=== PATIENT | female | born 1975 | race Caucasian/White ===

== ENCOUNTER 2017-12-04 16:54 | Emergency (ER) | payer OTHER, SELFPAY ==
[2017-12-04 17:33] VITALS: BP 124/85; PULSE 98; RESP 20; TEMP 36.6; O2SAT 98; BMI 32.6
[2017-12-04 18:06] LABS: UTC Influenza A Antigen Negative (Negative); UTC Influenza B Antigen Negative (Negative)
--- NOTE | 2017-12-04 18:43 | HMH.EDUTC ---
[facility] [place] Dis[place] Clinical Impression: URI (upper respiratory infection) Qualifiers: URI type: unspecified URI Qualified Code(s): J06.9 - Acute upper respiratory infection, unspecified Disposition: Home, Self-Care Condition on Discharge: Good Instructions: DI for Cough -- Adult, Sore Throat Additional Instructions: * Monitor Temp. Tylenol and/or Ibuprofen as needed. ER if fever is no less than 101 despite alternating Tylenol and Ibuprofen * Encourage fluids, water, Gatorade, powerade, pedialyte if /toddler/or child * Warm salt water gargles for throat irritation *Warm fluids *Sore throat lozenges *Sleep elevated *humidifier or vaporizer Lots of rest Increase fluids, water, Gatorade, powerade *Flonase 2 sprays each nostril daily but may take 2-3 days to notice improvement with it Follow up IMMEDIATELY for new or worsening of symptoms OR no noticeable improvement over the next 48-72 hours. 911 immediately for any life threatening symptoms such as chest pain or difficulty breathing Prescriptions: Promethazine/Dextromethorphan [Promethazine-Dm Syrup] 5 ml PO Q4HP PRN #250 ml MDD 30ML/DAY PRN Reason: Cough Azithromycin [Z-Sanjay 250mg Tab] 250 mg PO UD DOSE PK #6 tab Fluticasone Propionate [Flonase 50mcg nasal spray 16gm] 2 spr NS DAILY #1 bottle predniSONE [Prednisone 20mg Tab] 20 mg PO BID #10 tab Referrals: Kaushal Brandon MD [Primary Care Provider] - Time of Disposition: 18:54 Medical Decision Making - Medical Records Medical records reviewed: Yes: I reviewed the patient's medical records. Vital Signs: 12/04/17 17:33 Temperature 97.9 F Temperature Source Temporal Artery Scan Pulse Rate [Right Brachial] 98 H Respiratory Rate 20 Blood Pressure [Right Arm] 124/85 Blood Pressure Mean [Right Arm] 98 Blood Pressure Source [Right Arm] Automatic Cuff Blood Pressure Position [Right Arm] Sitting 02 Sat by Pulse Oximetry 98 Oxygen Delivery Method Room Air - Lab Data Lab Results 12/04/17 17:40: Influenza Type A Ag Negative, Influenza Type B Ag Negative - Wali Inquiry Pt receiving controlled substance: No Wali was queried for this patient: No [facility] [place] HPI - General Stated complaint: cough, chest and head congestion Mode of Arrival: Ambulatory Source of Information: Patient Limitations: No Limitations Description of Symptoms (Recalled from Triage Doc. by RN): C/O CHEST CONGETION, COUGH, HEAD CONGESTION HEENT Symptoms (Recalled from RN notes): Yes (HEAD CONGESTION) Resp Symptoms (Recalled from RN notes): Yes (CHEST CONGESTION, COUGH) Skin Symptoms (Recalled from RN notes): No MS Symptoms (Recalled from RN notes): No Functional Status (Recalled from RN notes): N/A - History of Present Illness Provider Complaint: Patient state that she is having cough head and chest congestion and sore throat State that she has continued to get worse State that she is blowing thick yellow mucous from nose and feeling tenderness and pressure in her sinuses - Related Data Previous Rx's Medication Instructions Recorded escitalopram 10 mg tablet 10 mg PO ONCE 90 Days #90 tab 11/24/17 Azithromycin [Z-Sanjay 250mg Tab] 250 mg PO UD DOSE PK #6 tab 12/04/17 Fluticasone Propionate [Flonase 2 spr NS DAILY #1 bottle 12/04/17 50mcg nasal spray 16gm] Promethazine/Dextromethorphan 5 ml PO Q4HP PRN #250 ml MDD 12/04/17 [Promethazine-Dm Syrup] 30ML/DAY predniSONE [Prednisone 20mg 20 mg PO BID #10 tab 12/04/17 Tab] Allergies Allergy/AdvReac Type Severity Reaction Status Date / Time No Known Allergies Allergy Unverified 10/11/17 14:23 - Worker's Comp Is this a Worker's Comp case?: No H History I have reviewed the patient's past medical history: Yes Amputation: No Fractures: No - *Social History Smoking Status: Never smoker Alcohol Intake: never - Psychiatric History Expresses thoughts of harming self/others: None Suicide Plan Description: No Plan ROS Obtained: Yes All systems reviewed &
--- NOTE | 2017-12-04 18:48 | ED_ITS ---
[facility] [place] Clinical Impression: URI (upper respiratory infection) Qualifiers: URI type: unspecified URI Qualified Code(s): J06.9 - Acute upper respiratory infection, unspecified Disposition: Home, Self-Care Condition on Discharge: Good Instructions: DI for Cough -- Adult, Sore Throat Additional Instructions: * Monitor Temp. Tylenol and/or Ibuprofen as needed. ER if fever is no less than 101 despite alternating Tylenol and Ibuprofen * Encourage fluids, water, Gatorade, powerade, pedialyte if /toddler/or child * Warm salt water gargles for throat irritation *Warm fluids *Sore throat lozenges *Sleep elevated *humidifier or vaporizer Lots of rest Increase fluids, water, Gatorade, powerade *Flonase 2 sprays each nostril daily but may take 2-3 days to notice improvement with it Follow up IMMEDIATELY for new or worsening of symptoms OR no noticeable improvement over the next 48-72 hours. 911 immediately for any life threatening symptoms such as chest pain or difficulty breathing Prescriptions: Promethazine/Dextromethorphan [Promethazine-Dm Syrup] 5 ml PO Q4HP PRN #250 ml MDD 30ML/DAY PRN Reason: Cough Azithromycin [Z-Sanjay 250mg Tab] 250 mg PO UD DOSE PK #6 tab Fluticasone Propionate [Flonase 50mcg nasal spray 16gm] 2 spr NS DAILY #1 bottle predniSONE [Prednisone 20mg Tab] 20 mg PO BID #10 tab Referrals: Kaushal Brandon MD [Primary Care Provider] - Time of Disposition: 18:54 Medical Decision Making - Medical Records Medical records reviewed: Yes: I reviewed the patient's medical records. Vital Signs: 12/04/17 17:33 Temperature 97.9 F Temperature Source Temporal Artery Scan Pulse Rate [Right Brachial] 98 H Respiratory Rate 20 Blood Pressure [Right Arm] 124/85 Blood Pressure Mean [Right Arm] 98 Blood Pressure Source [Right Arm] Automatic Cuff Blood Pressure Position [Right Arm] Sitting 02 Sat by Pulse Oximetry 98 Oxygen Delivery Method Room Air - Lab Data Lab Results 12/04/17 17:40: Influenza Type A Ag Negative, Influenza Type B Ag Negative - Wali Inquiry Pt receiving controlled substance: No Wali was queried for this patient: No [facility] [place] - General Stated complaint: cough, chest and head congestion Mode of Arrival: Ambulatory Source of Information: Patient Limitations: No Limitations Description of Symptoms (Recalled from Triage Doc. by RN): C/O CHEST CONGETION, COUGH, HEAD CONGESTION HEENT Symptoms (Recalled from RN notes): Yes (HEAD CONGESTION) Resp Symptoms (Recalled from RN notes): Yes (CHEST CONGESTION, COUGH) Skin Symptoms (Recalled from RN notes): No MS Symptoms (Recalled from RN notes): No Functional Status (Recalled from RN notes): N/A - History of Present Illness Provider Complaint: Patient state that she is having cough head and chest congestion and sore throat State that she has continued to get worse State that she is blowing thick yellow mucous from nose and feeling tenderness and pressure in her sinuses - Related Data Previous Rx's Medication Instructions Recorded escitalopram 10 mg tablet 10 mg PO ONCE 90 Days #90 tab 11/24/17 Azithromycin [Z-Sanjay 250mg Tab] 250 mg PO UD DOSE PK #6 tab 12/04/17 Fluticasone Propionate [Flonase 2 spr NS DAILY #1 bottle 12/04/17 50mcg nasal spray 16gm] Promethazine/Dextromethorphan 5 ml PO Q4HP PRN #250 ml MDD 12/04/17 [Promethazine-Dm Syrup] 30ML/DAY predniSONE [Predniso
[2017-12-04 19:10] VITALS: BP 124/85; PULSE 98; RESP 20; TEMP 36.6
== END 2017-12-04 19:12 | disposition home or self-care (01) ==
PROVIDERS: Emergency Provider Nurse Practitioner; Family Provider Emergency Medicine; PCP Emergency Medicine
DX: J06.9 Acute upper respiratory infection, unspecified (principal)
CPT/HCPCS: 87804; 99202

== ENCOUNTER 2018-01-27 08:56 | Emergency (ER) | payer OTHER, SELFPAY ==
[2018-01-27 09:06] VITALS: BP 146/83; PULSE 72; RESP 20; TEMP 36.6; O2SAT 97; BMI 77.0
--- NOTE | 2018-01-27 09:12 | HMH.EDUTC ---
[facility] [place] Impression: Sinusitis Qualifiers: Sinusitis location: other Chronicity: unspecified Qualified Code(s): J32.9 - Chronic sinusitis, unspecified Disposition: Home, Self-Care Condition on Discharge: Good Instructions: Sinusitis, Sinus Headache, DI for Sinusitis Additional Instructions: Start antibiotic. Sinus infections may take 2-3 days to notice much improvement so be sure to use conservative measures as discussed for symptoms Flonase 2 spray in each nostril daily to help with nasal congestion, sinus an ear pressure/inflammation Lots of Fluids Sleep elevated Humidifer/vaporizer Prescriptions: Azithromycin [Z-Sanjay 250mg Tab] 250 mg PO UD DOSE PK #6 tab Fluticasone Propionate [Flonase 50mcg nasal spray 16gm] 2 spr NS DAILY #1 bottle predniSONE [Prednisone 20mg Tab] 20 mg PO BID #10 tab Referrals: Kaushal Brandon MD [Primary Care Provider] - Time of Disposition: 09:21 Medical Decision Making - Medical Records Medical records reviewed: Yes: I reviewed the patient's medical records. - Wali Inquiry Pt receiving controlled substance: No Wali was queried for this patient: No Vital Signs: 01/27/18 09:06 Temperature 98 F Temperature Source Temporal Artery Scan Pulse Rate [Right Brachial] 72 Respiratory Rate 20 Blood Pressure [Right Arm] 146/83 Blood Pressure Mean [Right Arm] 104 Blood Pressure Source [Right Arm] Automatic Cuff Blood Pressure Position [Right Arm] Sitting 02 Sat by Pulse Oximetry 97 Oxygen Delivery Method Room Air - Lab Data Lab results reviewed: Yes: I reviewed the patient's lab results. [facility] [place] - General Stated complaint: Sinus pressure,ears hurting Time Seen by Provider: 01/27/18 09:10 Mode of Arrival: Family Vehicle Source of Information: Patient Limitations: No Limitations Description of Symptoms (Recalled from Triage Doc. by RN): c/o sinus congestion/pressure and ear pain HEENT Symptoms (Recalled from RN notes): Yes Resp Symptoms (Recalled from RN notes): Yes Skin Symptoms (Recalled from RN notes): No MS Symptoms (Recalled from RN notes): No Functional Status (Recalled from RN notes): n/a - History of Present Illness Provider Complaint: Patient complaining of sinus pain and pressure State that she feels like her ears are full and like her hearing is muffeled States that she is feeling pressure behind her eyes and in her upper teeth State that she did this the last times she had a sinus infection - Related Data Home Medications Medication Instructions Recorded Confirmed Escitalopram Oxalate 10 mg PO ONCE 01/27/18 01/27/18 Penicillin V Potassium [PenVK 250 mg PO DAILY 01/27/18 01/27/18 250mg tablet] Piroxicam 20 mg PO DAILY 01/27/18 01/27/18 Previous Rx's Medication Instructions Recorded Azithromycin [Z-Sanjay 250mg Tab] 250 mg PO UD DOSE PK #6 tab 01/27/18 Fluticasone Propionate [Flonase 2 spr NS DAILY #1 bottle 01/27/18 50mcg nasal spray 16gm] predniSONE [Prednisone 20mg 20 mg PO BID #10 tab 01/27/18 Tab] Allergies Allergy/AdvReac Type Severity Reaction Status Date / Time No Known Allergies Allergy Verified 01/27/18 09:11 - Worker's Comp Is this a Worker's Comp case?: No [facility] History I have reviewed the patient's past medical history: Yes Amputation: No Fractures: No - Social History Smoking Status: Current every day smoker Tobacco Type: cigarettes Alcohol Intake: never - Psychiatric History Expresses thoughts of harming self/others: None Suicide Plan Description: No Plan ROS Obtained: Yes All systems reviewed & no additional complaints - Constitutional Constitutional: Denies body ache, Denies chills, Denies fever(s) - ENT Ears, Nose, Mouth, and Throat: Reports sinus pain, Reports sinus pressure, Denies sore throat - Respiratory Respiratory: No chest congestion, Yes cough Physical Exam - General General appearance: alert, in no apparent distress - Expanded ENT Exam Nose exam:
--- NOTE | 2018-01-27 09:16 | ED_ITS ---
[facility] Disposition Clinical Impression: Sinusitis Qualifiers: Sinusitis location: other Chronicity: unspecified Qualified Code(s): J32.9 - Chronic sinusitis, unspecified Disposition: Home, Self-Care Condition on Discharge: Good Instructions: Sinusitis, Sinus Headache, DI for Sinusitis Additional Instructions: Start antibiotic. Sinus infections may take 2-3 days to notice much improvement so be sure to use conservative measures as discussed for symptoms Flonase 2 spray in each nostril daily to help with nasal congestion, sinus an ear pressure/inflammation Lots of Fluids Sleep elevated Humidifer/vaporizer Prescriptions: Azithromycin [Z-Sanjay 250mg Tab] 250 mg PO UD DOSE PK #6 tab Fluticasone Propionate [Flonase 50mcg nasal spray 16gm] 2 spr NS DAILY #1 bottle predniSONE [Prednisone 20mg Tab] 20 mg PO BID #10 tab Referrals: Kaushal Brandon MD [Primary Care Provider] - Time of Disposition: 09:21 Medical Decision Making - Medical Records Medical records reviewed: Yes: I reviewed the patient's medical records. - Wali Inquiry Pt receiving controlled substance: No Wali was queried for this patient: No Vital Signs: 01/27/18 09:06 Temperature 98 F Temperature Source Temporal Artery Scan Pulse Rate [Right Brachial] 72 Respiratory Rate 20 Blood Pressure [Right Arm] 146/83 Blood Pressure Mean [Right Arm] 104 Blood Pressure Source [Right Arm] Automatic Cuff Blood Pressure Position [Right Arm] Sitting 02 Sat by Pulse Oximetry 97 Oxygen Delivery Method Room Air - Lab Data Lab results reviewed: Yes: I reviewed the patient's lab results. [facility] HPI - General Stated complaint: Sinus pressure,ears hurting Time Seen by Provider: 01/27/18 09:10 Mode of Arrival: Family Vehicle Source of Information: Patient Limitations: No Limitations Description of Symptoms (Recalled from Triage Doc. by RN): c/o sinus congestion/ pressure and ear pain HEENT Symptoms (Recalled from RN notes): Yes Resp Symptoms (Recalled from RN notes): Yes Skin Symptoms (Recalled from RN notes): No MS Symptoms (Recalled from RN notes): No Functional Status (Recalled from RN notes): n/a - History of Present Illness Provider Complaint: Patient complaining of sinus pain and pressure State that she feels like her ears are full and like her hearing is muffeled States that she is feeling pressure behind her eyes and in her upper teeth State that she did this the last times she had a sinus infection - Related Data Home Medications Medication Instructions Recorded Confirmed Escitalopram Oxalate 10 mg PO ONCE 01/27/18 01/27/18 Penicillin V Potassium [PenVK 250 mg PO DAILY 01/27/18 01/27/18 250mg tablet] Piroxicam 20 mg PO DAILY 01/27/18 01/27/18 Previous Rx's Medication Instructions Recorded Azithromycin [Z-Sanjay 250mg Tab] 250 mg PO UD DOSE PK #6 tab 01/27/18 Fluticasone Propionate [Flonase 2 spr NS DAILY #1 bottle 01/27/18 50mcg nasal spray 16gm] predniSONE [Prednisone 20mg 20 mg PO BID #10 tab 01/27/18 Tab] Allergies Allergy/AdvReac Type Severity Reaction Status Date / Time No Known Allergies Allergy Verified 01/27/18 09:11 - Worker's Comp Is this a Worker's Comp case?: No H History I have reviewed the patient's past medical history: Yes Amputation: No Fract
[2018-01-27 09:25] VITALS: BP 149/83; PULSE 72; RESP 20; TEMP 36.6; O2SAT 97
== END 2018-01-27 09:29 | disposition home or self-care (01) ==
PROVIDERS: Emergency Provider Nurse Practitioner; Family Provider Emergency Medicine; PCP Emergency Medicine
DX: J32.9 Chronic sinusitis, unspecified (principal); F17.210 Nicotine dependence, cigarettes, uncomplicated
CPT/HCPCS: 99201

== ENCOUNTER → 2018-03-31 10:32 | Outpatient (CLI) | payer OTHER, SELFPAY ==
--- NOTE | 2018-03-31 10:33 | US_ITS ---
US extremity LT limited Ordering Physician: Kaushal Brandon MD Patient Age: 42 years: Female HISTORY: ITS.REASON: Knot left hand . This probable fullness and not pop up one week ago. Posterior hand below thumb TECHNIQUE: Ultrasound left hand with attention to the palpable area COMPARISON : FINDINGS Septated fluid collection is seen on here at the left hand associated with the palpable area at this spans 2.9 cm maximum length x1.8 cm x 0.7 cm AP . Again multiple septations. No color Doppler flow. The thin margins. May reflect some type of synovial cyst. Or possibly Ganglion cyst. The fluid appears fairly clear and without the appearance of hematoma.. Does not appear to be an abscess due to the clear nature fluid as well as the thin-wall. And and no increased vascularity. IMPRESSION 1.. Elongated septated fluid collection is seen at the posterior hand left hand below thumb., Correlates with the palpable area.. This area measures up to nearly 2.9 cm length maximally x 0.7 cm AP Correlation required but Favor a synovial cyst most likely. Or possibly Ganglion cyst type feature
== END ==
PROVIDERS: Family Provider Emergency Medicine; PCP Emergency Medicine; Visit Provider Emergency Medicine
DX: R22.9 Localized swelling, mass and lump, unspecified (principal)
CPT/HCPCS: 76882

== ENCOUNTER → 2018-06-05 10:31 | Outpatient (CLI) | payer OTHER, SELFPAY ==
[2018-06-05 11:44] LABS: Basophils # 0.1 K/mm3 (0-0.2); Basophils % 0.5 % (0.1-2.0); Eosinophils # 0.1 K/mm3 (0.0-0.4); Eosinophils % 0.9 % (0.1-12.0); Hematocrit 44.1 % (37.0-47.0); Hemoglobin 14.5 g/dL (12.2-16.2); Lymphocytes # 2.3 K/mm3 (0.7-4.5); Lymphocytes % 23.9 K/mm3 (10-50); Mean Corpuscular HGB Conc 32.9 g/dL (31.8-35.4); Mean Corpuscular Hemoglobin 30.2 pg (27.0-31.2); Mean Corpuscular Volume 91.8 fl (81-99); Mean Platelet Volume 7.1 fl (7.4-10.4); Monocytes # 0.5 K/mm3 (0.1-1.0); Monocytes % 5.1 % (1.7-9.3); Neutrophils # 6.6 K/mm3 (1.8-7.8); Neutrophils % 69.5 % (37.0-80.0); Platelet Count 398 K/mm3 (142-424); Red Cell Distribution Width 12.2 % (11.5-17.5); White Blood Count 9.5 K/mm3 (4.8-10.8)
[2018-06-05 12:51] LABS: Alanine Aminotransferase 32 U/L (12-78); Albumin Level 3.6 gm/dL (3.4-5.0); Albumin/Globulin Ratio 1.1 (1.1-1.8); Alkaline Phosphatase 101 U/L (46-116); Amylase 138 U/L (25-125); Anion Gap 13.4 mEq/L (5-15); Aspartate Amino Transferase 16 U/L (15-37); Bilirubin,Total 0.3 mg/dL (0.2-1.0); Blood Urea Nitrogen 14 mg/dL (7-18); Calcium 9.1 mg/dL (8.5-10.1); Carbon Dioxide 26 mmol/L (21.0-32.0); Chloride 104 mmol/L (98-107); Creatinine,Serum 0.91 mg/dL (0.55-1.02); Estimated Glomerular Filt Rate 67 ml/min (>60); GFR (African American) 81 ML/MIN (>60); Globulin 3.4 gm/dl (1.3-3.2); Glucose 94 mg/dL (74-106); Potassium 4.4 mmoL/L (3.5-5.1); Sodium 139 mmol/L (136-145)
[2018-06-05 13:00] LABS: Lipase 2758 u/L (73-393)
[2018-06-06 16:06] LABS: H. pylori Breath Test Negative (Negative)
== END ==
PROVIDERS: Visit Provider Physician Assistant
DX: R10.13 Epigastric pain (principal)
CPT/HCPCS: 36415; 80053; 82150; 83013; 83690; 85025

== ENCOUNTER → 2018-08-15 18:32 | Outpatient (REF) | payer OTHER, SELFPAY ==
[2018-08-15 18:41] LABS: Basophils # 0.1 K/mm3 (0-0.2); Basophils % 0.6 % (0.1-2.0); Eosinophils # 0.1 K/mm3 (0.0-0.4); Eosinophils % 1.2 % (0.1-12.0); Hematocrit 44.6 % (37.0-47.0); Hemoglobin 14.3 g/dL (12.2-16.2); Lymphocytes # 2.6 K/mm3 (0.7-4.5); Lymphocytes % 23.4 K/mm3 (10-50); Mean Corpuscular Hemoglobin 30.2 pg (27.0-31.2); Mean Corpuscular Volume 94.2 fl (81-99); Mean Platelet Volume 8.7 fl (7.4-10.4); Monocytes # 0.6 K/mm3 (0.1-1.0); Monocytes % 5.2 % (1.7-9.3); Neutrophils # 7.7 K/mm3 (1.8-7.8); Neutrophils % 69.6 % (37.0-80.0); Platelet Count 384 K/mm3 (142-424); Red Blood Count 4.73 M/mm3 (4.20-5.40); Red Cell Distribution Width 12.6 % (11.5-17.5)
[2018-08-15 19:01] LABS: Alanine Aminotransferase 27 U/L (12-78); Albumin Level 3.7 gm/dL (3.4-5.0); Albumin/Globulin Ratio 1.1 (1.1-1.8); Alkaline Phosphatase 97 U/L (46-116); Anion Gap 13.5 mEq/L (5-15); Aspartate Amino Transferase 18 U/L (15-37); Bilirubin,Total 0.3 mg/dL (0.2-1.0); Blood Urea Nitrogen 14 mg/dL (7-18); Calcium 9.1 mg/dL (8.5-10.1); Carbon Dioxide 27 mmol/L (21.0-32.0); Chloride 101 mmol/L (98-107); Chol/HDL Ratio 4.2 (1-3.5); Cholesterol 189 mg/dL (140-200); Creatinine Clearance Estimated 152 mL/min (0-300); Creatinine,Serum 0.72 mg/dL (0.55-1.02); Estimated Glomerular Filt Rate 88 ml/min (>60); GFR (African American) 106 ML/MIN (>60); Globulin 3.3 gm/dl (1.3-3.2); Glucose 78 mg/dL (74-106); HDL Cholesterol 45 mg/dL (29-89); LDL Cholesterol 121 mg/dL (0-130); Potassium 4.5 mmoL/L (3.5-5.1); Sodium 137 mmol/L (136-145); T4 (Thyroxine) 8.5 ug/dl (4.7-13.3); Thyroid Stimulating Hormone 0.71 uIU/ml (0.358-3.740); Triglycerides 117 mg/dL (30-200); VLDL Cholesterol 23 mg/dL (0-40)
[2018-08-18 06:42] LABS: FSH 4.5 mIU/mL (.); LH 10.4 mIU/mL (.)
[2018-08-22 06:29] LABS: Estrogen 694 pg/mL (.)
== END ==
LOC: LAB 18:32
PROVIDERS: Visit Provider Physician Assistant
DX: R53.83 Other fatigue (principal); M79.7 Fibromyalgia; R23.2 Flushing
CPT/HCPCS: 80053; 80061; 82652; 82672; 83001; 83002; 84436; 84443; 85025

== ENCOUNTER 2019-02-13 09:30 | Outpatient (RCR) | payer OTHER, SELFPAY | END 2019-02-13 09:35 | disposition home or self-care (01) | LOC: OT 09:30 | PROVIDERS: Visit Provider Plastic Surgery Surgery of the Hand | DX: Z98.890 Other specified postprocedural states (principal); M79.642 Pain in left hand | CPT/HCPCS: 97110; 97165 ==

== ENCOUNTER → 2019-04-16 18:35 | Outpatient (CLI) | payer OTHER, SELFPAY ==
[2019-04-16 19:02] LABS: Basophils % 0.4 % (0.1-2.0); Eosinophils # 0.3 K/mm3 (0.0-0.4); Eosinophils % 2.4 % (0.1-12.0); Hematocrit 45.5 % (37.0-47.0); Hemoglobin 14.2 g/dL (12.2-16.2); Lymphocytes # 2.3 K/mm3 (0.7-4.5); Lymphocytes % 22.2 % (10-50); Mean Corpuscular HGB Conc 31.2 g/dL (31.8-35.4); Mean Corpuscular Hemoglobin 30.4 pg (27.0-31.2); Mean Corpuscular Volume 97.5 fl (81-99); Mean Platelet Volume 9.1 fl (7.4-10.4); Monocytes # 0.6 K/mm3 (0.1-1.0); Monocytes % 5.9 % (1.7-9.3); Neutrophils # 7.2 K/mm3 (1.8-7.8); Neutrophils % 69.1 % (37.0-80.0); Platelet Count 427 K/mm3 (142-424); Red Blood Count 4.67 M/mm3 (4.20-5.40); Red Cell Distribution Width 12.4 % (11.5-17.5); White Blood Count 10.4 K/mm3 (4.8-10.8)
[2019-04-16 19:06] LABS: Alanine Aminotransferase 38 U/L (12-78); Albumin Level 3.7 gm/dL (3.4-5.0); Albumin/Globulin Ratio 1.1 (1.1-1.8); Alkaline Phosphatase 102 U/L (46-116); Anion Gap 15.2 mEq/L (5-15); Aspartate Amino Transferase 21 U/L (15-37); Bilirubin,Total 0.3 mg/dL (0.2-1.0); Blood Urea Nitrogen 13 mg/dL (7-18); Calcium 9.1 mg/dL (8.5-10.1); Carbon Dioxide 26 mmol/L (21.0-32.0); Chloride 103 mmol/L (98-107); Chol/HDL Ratio 4.5 (1-3.5); Cholesterol 194 mg/dL (140-200); Creatinine,Serum 0.78 mg/dL (0.55-1.02); Estimated Glomerular Filt Rate 80 ml/min (>60); Free T4 (Free Thyroxine) 0.92 ng/dl (0.76-1.46); GFR (African American) 97 ML/MIN (>60); Globulin 3.4 gm/dl (1.3-3.2); Glucose 101 mg/dL (74-106); HDL Cholesterol 43 mg/dL (29-89); LDL Cholesterol 126 mg/dL (0-130); Potassium 5.2 mmoL/L (3.5-5.1); Sodium 139 mmol/L (136-145); Thyroid Stimulating Hormone 0.84 uIU/ml (0.358-3.740); Total Protein,Serum 7.1 gm/dL (6.4-8.2); Triglycerides 124 mg/dL (30-200); VLDL Cholesterol 25 mg/dL (0-40)
[2019-04-18 17:47] LABS: Vitamin D 25 Hydroxy 34.1 ng/mL (30.0-100.0)
== END ==
PROVIDERS: Visit Provider Physician Assistant
DX: D72.829 Elevated white blood cell count, unspecified (principal); E55.9 Vitamin D deficiency, unspecified; I10 Essential (primary) hypertension; R53.83 Other fatigue; R68.89 Other general symptoms and signs; E11.9 Type 2 diabetes mellitus without complications
CPT/HCPCS: 80053; 80061; 82652; 84439; 84443; 85025

== ENCOUNTER → 2019-04-24 14:16 | Outpatient (CLI) | payer OTHER, SELFPAY ==
--- NOTE | 2019-04-24 14:18 | CA_ITS ---
PROCEDURE: 2-D M-mode and color Doppler study INDICATIONS FOR THE TEST: Chest pain COPD Heart Murmur Tobacco Smoking Palpitations Fatigue Syncope Edema HypertensionXDiabetes Mellitus Rheumatic FeverX SOB STONE ObesityXHyperlipidemiaX Family History HD Additional History PATIENT INFORMATION HEIGHT: 68 WEIGHT:222 GENDER: Female B/P:110/70 2-D/M-MODE INTERPRETATION: 2-D MEASUREMENTS OBSERVED VALUES IN CMS Right Ventricular Dimension (RVDd) 1.9 Interventricular Septum (Thickness)(IVsd) .8 Left Ventricular Internal Dimensions(LVIDd) 5.2 Left Ventricular Posterior Wall (Thickness)(LVPWd) .9 Aortic Root 2.8 Aortic Cusp Separation 1.9 Left Atrial Dimensions (LAD) 2.3 2D 1. Left atrium is normal size, left ventricle is normal size, mild concentric left ventricular hypertrophy, visually estimated ejection fraction 55% with no regional wall motion abnormality. 2. The right atrium and right ventricle are normal size and contractility. 3. The aortic, mitral and tricuspid valvular grossly normal. 4. The pulmonic valve is poorly visualized. 5. No significant pericardial effusion noted. DOPPLER INTERROGATION: Doppler interrogation of the aortic, mitral and tricuspid valvular presence of mild mitral and tricuspid regurgitation, tricuspid regurgitation jet velocity is inadequate for calculation of the right ventricular systolic pressure, diastolic parameters are within normal range. CONCLUSION: 1. Normal left ventricular size, preserved left ventricular systolic function, visually estimated ejection fraction 55% with no regional wall motion abnormality. Diastolic parameters are within normal range. 2. Mild mitral and tricuspid regurgitation 3. No significant pericardial effusion noted.
== END ==
PROVIDERS: PCP Emergency Medicine; Visit Provider Physician Assistant
DX: Z86.79 Personal history of other diseases of the circulatory system (principal)
CPT/HCPCS: 93306

== ENCOUNTER → 2019-10-03 10:03 | Outpatient (CLI) | payer OTHER, SELFPAY ==
--- NOTE | 2019-10-03 10:07 | XR_ITS ---
PROCEDURE: XR HAND RT MIN 3V CLINICAL INDICATION: right hand pain Right hand pain, history of surgery COMPARISON: HANDR3 HAND-RT 3 VIEWS from 10/31/2013 HANDR3 HAND-RT 3 VIEWS from 09/23/2015 FINDINGS: A stable has been placed along the base of the 1st metacarpal and trapezium area with bony hypertrophic change at this region. There is a faint zone of lucency around this stable. Are no other postoperative exams available to determine if this zone of lucency is acute or chronic. There is good alignment with no other significant abnormalities. IMPRESSION: Status post arthrodesis of the 1st metacarpal-carpal joint with a stable with a zone of lucency around the stable and bony hypertrophic change at the joint Dictated by: Brayan Smalls MD 10/03/2019 16:39 Electronically signed by Brayan Smalls MD in [place] 10/03/2019 16:39
--- NOTE | 2019-10-03 11:13 | XR_ITS ---
PROCEDURE: XR CHEST 2V CLINICAL HISTORY: SMOKER COMPARISON: CXR CHEST(2 VIEWS-NOT PORTABLE) from 12/04/[address] [facility] [address] CHEST W/O CONTRAST from 01/04/2017 CXR2V XR chest 2V from 06/02/2018 FINDINGS: The cardiomediastinal silhouette and pulmonary vascularity are within normal limits. The lungs are clear without infiltrates, suspicious nodules, or pleural effusions. No acute bony abnormalities. IMPRESSION: No acute findings. Dictated by: Brayan Smalls MD 10/03/2019 16:30 Electronically signed by Brayan Smalls MD in [place] 10/03/2019 16:30
[2019-10-03 12:22] LABS: Basophils # 0.1 K/mm3 (0-0.2); Basophils % 0.8 % (0.1-2.0); Eosinophils # 0.2 K/mm3 (0.0-0.4); Eosinophils % 1.7 % (0.1-12.0); Hematocrit 43.9 % (37.0-47.0); Hemoglobin 14.3 g/dL (12.2-16.2); Lymphocytes # 2.6 K/mm3 (0.7-4.5); Lymphocytes % 25.5 % (10-50); Mean Corpuscular HGB Conc 32.6 g/dL (31.8-35.4); Mean Corpuscular Hemoglobin 30.2 pg (27.0-31.2); Mean Corpuscular Volume 92.7 fl (81-99); Mean Platelet Volume 7.9 fl (7.4-10.4); Monocytes # 0.5 K/mm3 (0.1-1.0); Monocytes % 4.7 % (1.7-9.3); Neutrophils % 67.3 % (37.0-80.0); Platelet Count 434 K/mm3 (142-424); Red Blood Count 4.73 M/mm3 (4.20-5.40); Red Cell Distribution Width 12.3 % (11.5-17.5); White Blood Count 10.3 K/mm3 (4.8-10.8)
[2019-10-03 15:23] LABS: Blood Urea Nitrogen 13 mg/dL (7-18); Calcium 9.2 mg/dL (8.5-10.1); Carbon Dioxide 27 mmol/L (21.0-32.0); Chloride 103 mmol/L (98-107); Estimated Glomerular Filt Rate 78 ml/min (>60); GFR (African American) 94 ML/MIN (>60); Glucose 82 mg/dL (74-106); Sodium 139 mmol/L (136-145)
== END ==
PROVIDERS: PCP Emergency Medicine; Visit Provider Orthopaedic Surgery
DX: Z01.818 Encounter for other preprocedural examination (principal); M79.641 Pain in right hand; M65.311 Trigger thumb, right thumb
CPT/HCPCS: 36415; 71046; 73130; 80048; 85025

== ENCOUNTER 2020-02-05 14:07 | Emergency (ER) | payer OTHER, SELFPAY ==
[2020-02-05 14:12] VITALS: BP 163/90; PULSE 82; RESP 18; TEMP 37; O2SAT 97; BMI 33.4
--- NOTE | 2020-02-05 14:27 | HMH.COUGH ---
Cough Clinic HPI - History of Present Illness Complaint:: Sore throat HPI:: Patient returns to the cough clinic this week after being seen last week with complaints of sore throat, sinus pain, ear discomfort. She did not have any fevers. Patient had negative strep and flu tests. She was treated for sinus infection. She returns today stating she feels worse and her throat pain is no better. She continues to deny fevers. Home Medications: Home Medications Medication Instructions Recorded Confirmed Type albuterol sulfate 90 mcg/actuation 1 puff INHALATION Q6H PRN #6.7 g 03/30/18 02/05/20 Rx aerosol inhaler Cholecalciferol (Vitamin D3) 1,000 unit PO DAILY 10/10/19 02/05/20 History [Vitamin D3 1,000 Unit Cap] Ergocalciferol (Vitamin D2) 50,000 unit PO QWEEK 10/10/19 02/05/20 History [Drisdol] oxybutynin chloride 5 mg tablet 5 mg PO BID #180 tab 11/30/19 02/05/20 Rx escitalopram oxalate 10 mg tablet 10 mg PO DAILY #90 tab 12/17/19 02/05/20 Rx Albuterol Sulfate [Proventil-HFA 2 puffs IH QIDP PRN 30 Days #1 inh 01/30/20 02/05/20 Rx 90mcg/puff Inh] Amoxicillin [Amoxicillin 875MG 875 mg PO BID 01/30/20 02/05/20 History Tab] Fluticasone Propionate 1 spray INTRANASAL QDAY 01/30/20 02/05/20 History Loratadine [Allergy Relief] 10 mg PO DAILY 01/30/20 02/05/20 History Piroxicam 20 mg PO DAILY 01/30/20 02/05/20 History atorvastatin 20 mg tablet See Rx Instructions .ROUTE 02/01/20 02/05/20 Rx .COMPLEX #90 tab lisinopril 10 mg tablet See Rx Instructions .ROUTE 02/01/20 02/05/20 Rx .COMPLEX #90 tab Loratadine [Allerclear] 10 mg PO DAILY #30 tab 02/05/20 Rx Allergies/Adverse Reactions: Allergies Allergy/AdvReac Type Severity Reaction Status Date / Time No Known Allergies Allergy Verified 02/05/20 14:11 Cough Clinic Triage - Symptoms Fever History: No Chills: No Myalgia: Yes (x week) Nasal Drainage: No Sore Throat: Yes (x1 week) Productive Cough: No Non-productive Cough: No Ear or Sinus Pain: Yes (x 1 week) Joint Pain: No Chest Pain: No Rash: No Shortness of Breath: Yes Nausea or Vomitting: No Headache: Yes (x1 week) Abdominal Pain: No Diarrhea: No - Exposure History Foreign Travel: No Direct Contact with COVID-19 Patient: No - Risk Factors Greater than 60 Years Old: No COPD: No Diabetes: No Heart Disease: Yes (HTN) Home Oxygen Use: No Chronic Renal Disease: No Chronic Liver Disease: No Neurologic/Neurodevelopmental/intellectual disability: No Other Chronic Diseases: Yes (Fibromyalgia) If Female, currently : No Current Smoker: Yes Former Smoker: No Cough Clinic History I have reviewed the patient's past medical history: Yes Medical History: Reports:: Anxiety, Depression, Hyperlipidemia, Hypertension Denies:: Cancer, Diabetes Mellitus Type 1, Diabetes Mellitus Type 2, Internal Pacemaker, MRSA, Seizures Other Medical History: Reports: Fibromyalgia, Sinus Problems. Denies: Blood Transfusion Reaction Comment: obesity Other Surgeries: Yes: , Hysterectomy-Partial. No: Pacemaker Amputation: No Fractures: No Comment: Cyst removal from left hand./ [facility] joint fusion on right - Social History Smoking Status: Current every day smoker Tobacco Type: cigarettes # Packs/Day (cigarettes): 1 Alcohol Intake: never Alcohol Intake Frequency:: holidays/special occasions only Substance Use Type: denies use Occupational Status: other Housing: house Household Members: spouse, family, children - Psychiatric History Pschychiatric History:: Reports:: Anxiety, Depression Family Hx:: Cancer ROS Obtained: Yes All systems reviewed & no additional complaints Cough Clinic Exam - General General appearance: alert, in no apparent distress - Head Head exam: atraumatic, normocephalic, normal inspection - Eye Eye exam: Present: normal appearance, PERRL, EOMI - ENT ENT exam: Present: normal exam, mucous membranes moist, normal external ear exam, other (Tympanic membranes nor
[2020-02-05 14:34] VITALS: BP 163/90; PULSE 91; RESP 20; TEMP 37; O2SAT 97
== END 2020-02-05 14:37 | disposition home or self-care (01) ==
PROVIDERS: Emergency Provider Family Medicine; PCP Physician Assistant
DX: J02.9 Acute pharyngitis, unspecified (principal); I10 Essential (primary) hypertension; M79.7 Fibromyalgia; F41.8 Other specified anxiety disorders; E78.5 Hyperlipidemia, unspecified; F17.210 Nicotine dependence, cigarettes, uncomplicated; Z90.79 Acquired absence of other genital organ(s)
CPT/HCPCS: 87070; 99201; 99213

== ENCOUNTER → 2020-02-08 15:28 | Outpatient (CLI) | payer OTHER, SELFPAY ==
[2020-02-08 15:31] LABS: Adenovirus,PCR Not Detected (NotDetected); Bordetella Pertussis Not Detected (NotDetected); Chlamydophila Pneumoniae, PCR Not Detected (NotDetected); Coronavirus 229E Not Detected (NotDetected); Coronavirus NL63 Not Detected (NotDetected); Coronavirus OC43 Not Detected (NotDetected); Coronovirus HKU1,PCR Not Detected (NotDetected); Human Metapneumovirus Not Detected (NotDetected); Influenza A, PCR Not Detected (NotDetected); Influenza AH1, 2009 Not Detected (NotDetected); Influenza AH1, PCR Not Detected (NotDetected); Influenza AH3,PCR Not Detected (NotDetected); Influenza B, PCR Not Detected (NotDetected); Mycoplasma Pneumoniae, PCR Not Detected (NotDetected); Parainfluenza 1, PCR Not Detected (NotDetected); Parainfluenza 2, PCR Not Detected (NotDetected); Parainfluenza 3, PCR Not Detected (NotDetected); Parainfluenza 4, PCR Not Detected (NotDetected); Respiratory Syncytial Virus Not Detected (NotDetected); Rhinovirus/Enterovirus Not Detected (NotDetected)
== END ==
PROVIDERS: Visit Provider Nurse Practitioner Family
DX: R05 Cough (principal); J02.9 Acute pharyngitis, unspecified
CPT/HCPCS: 87486; 87581; 87633; 87798

== ENCOUNTER → 2020-02-11 15:25 | Outpatient (CLI) | payer OTHER, SELFPAY ==
[2020-02-11 15:56] LABS: Monoscreen (Rapid) Negative (Negative)
[2020-02-11 16:00] LABS: Basophils # 0.1 K/mm3 (0-0.2); Basophils % 0.5 % (0.1-2.0); Eosinophils # 0.2 K/mm3 (0.0-0.4); Eosinophils % 1.5 % (0.1-12.0); Hematocrit 43.1 % (37.0-47.0); Hemoglobin 13.8 g/dL (12.2-16.2); Lymphocytes # 3.8 K/mm3 (0.7-4.5); Lymphocytes % 35.1 % (10-50); Mean Corpuscular Hemoglobin 30.3 pg (27.0-31.2); Mean Corpuscular Volume 94.8 fl (81-99); Mean Platelet Volume 7.9 fl (7.4-10.4); Monocytes # 0.4 K/mm3 (0.1-1.0); Neutrophils # 6.3 K/mm3 (1.8-7.8); Neutrophils % 58.9 % (37.0-80.0); Platelet Count 381 K/mm3 (142-424); Red Blood Count 4.54 M/mm3 (4.20-5.40); Red Cell Distribution Width 12.7 % (11.5-17.5); White Blood Count 10.7 K/mm3 (4.8-10.8)
[2020-02-11 16:29] LABS: Chloride 106 mmol/L (98-107); Potassium 4.5 mmoL/L (3.5-5.1); Sodium 138 mmol/L (136-145)
[2020-02-11 16:32] LABS: Alanine Aminotransferase 22 U/L (12-78); Alkaline Phosphatase 76 U/L (38-126); Anion Gap 10.5 mEq/L (5-15); Aspartate Amino Transferase 23 U/L (14-36); Bilirubin,Total 0.2 mg/dl (0.2-1.3); Blood Urea Nitrogen 17 mg/dl (7-17); Carbon Dioxide 26 mmol/L (22.0-30.0); Estimated Glomerular Filt Rate 67 ml/min (>60); GFR (African American) 82 ML/MIN (>60)
[2020-02-11 16:33] LABS: Albumin Level 4.3 g/dl (3.5-5.0); Albumin/Globulin Ratio 1.6 (1.1-1.8); Calcium 9.6 mg/dl (8.4-10.2); Globulin 2.7 g/dL (1.3-3.2); Glucose 98 mg/dl (74-100)
[2020-02-11 17:46] LABS: Erythrocyte Sedimentation Rate 18 mm/hr (0-20)
[2020-02-14 10:27] LABS: EBV Ab VCA, IgG >600.0 U/mL (0.0-17.9); EBV Ab VCA, IgM <36.0 U/mL (0.0-35.9)
== END ==
PROVIDERS: Visit Provider Physician Assistant
DX: J02.9 Acute pharyngitis, unspecified (principal); R53.83 Other fatigue
CPT/HCPCS: 36415; 80053; 85025; 85651; 86318; 86664; 86665

== ENCOUNTER 2020-05-11 13:44 | Emergency (ER) | payer OTHER, SELFPAY ==
[2020-05-11 14:23] VITALS: BP 108/71; PULSE 89; RESP 20; TEMP 36.8; O2SAT 95; BMI 33.4
--- NOTE | 2020-05-11 14:32 | HMH.EDUTC ---
[facility] [place] Clinical Impression: Pharyngitis Qualifiers: Pharyngitis/tonsillitis etiology: unspecified etiology Qualified Code(s): J02.9 - Acute pharyngitis, unspecified Disposition: Home, Self-Care Condition on Discharge: Good Instructions: DI for Pharyngitis/Tonsillopharyngitis -- Adult Additional Instructions: Drink plenty of fluids. Take tylenol or ibuprofen for pain or fever. Take the medications as directed. Follow up with your regular doctor. GO TO THE ER FOR ANY WORSENING SYMPTOMS Throw your tooth brush away and get a new one. Prescriptions: Azithromycin [Z-Sanjay 250mg Tab*] 250 mg PO UD DOSE PK #6 tab Transmission Status: Received by [facility] #[id number] Referrals: Janet Chapman PA [Primary Care Provider] - Forms: Work/School Release Time of Disposition: 14:35 Medical Decision Making - Medical Records Medical records reviewed: No: I reviewed the patient's medical records. - Wali Inquiry Pt receiving controlled substance: No Vital Signs: 05/11/20 14:23 05/11/20 14:40 Temperature 98.3 F 98.3 F Temperature Source Oral Pulse Rate 89 Pulse Rate [Left Brachial] 89 Respiratory Rate 20 20 Blood Pressure 108/71 L Blood Pressure [Left Arm] 108/71 L Blood Pressure Mean [Left Arm] 83 Blood Pressure Source [Left Arm] Automatic Cuff Blood Pressure Position [Left Arm] Sitting 02 Sat by Pulse Oximetry 95 Oxygen Delivery Method Room Air - Lab Data Lab results reviewed: Yes: I reviewed the patient's lab results. Lab Results 05/11/20 14:16: Strep Scn Rapid Clinic Negative Orders (Tests/Meds): ORDERS Category Date Time Status Strep Screen Confirmation Stat Micro 05/11/20 14:16 Received [facility] [place] - General Stated complaint: sore throat cough muscle aches Time Seen by Provider: 05/11/20 14:30 Mode of Arrival: Ambulatory Source of Information: Patient Limitations: No Limitations Description of Symptoms (Recalled from Triage Doc. by RN): PATIENT C/O SORE THROAT SINCE YESTERDAY AND PRODUCTIVE COUGH X 2 DAYS HEENT Symptoms (Recalled from RN notes): Yes Resp Symptoms (Recalled from RN notes): Yes Skin Symptoms (Recalled from RN notes): No MS Symptoms (Recalled from RN notes): No Functional Status (Recalled from RN notes): WNL - History of Present Illness Provider Complaint: She c/o sore throat, feeling bad and both her grand children have tested positive for strep throat today. She denies any cough or fever. - Related Data Home Medications Medication Instructions Recorded Confirmed Cholecalciferol (Vitamin D3) 1,000 unit PO DAILY 10/10/19 02/11/20 [Vitamin D3 1,000 Unit Cap] Ergocalciferol (Vitamin D2) 50,000 unit PO QWEEK 10/10/19 02/11/20 [Drisdol] Loratadine [Allergy Relief] 10 mg PO DAILY 01/30/20 02/11/20 Previous Rx's Medication Instructions Recorded albuterol sulfate 90 mcg/actuation 1 puff INHALATION Q6H PRN #6.7 g 03/30/18 aerosol inhaler oxybutynin chloride 5 mg tablet 5 mg PO BID #180 tab 11/30/19 Loratadine [Allerclear] 10 mg PO DAILY #30 tab 02/05/20 prednisone 20 mg tablet 20 mg PO BID #10 tab 02/12/20 piroxicam 20 mg capsule 20 mg PO DAILY #90 cap 02/13/20 escitalopram oxalate 10 mg tablet See Rx Instructions .ROUTE 03/24/20 .COMPLEX #90 unspecified atorvastatin 20 mg tablet 20 mg PO DAILY #90 tab 05/09/20 lisinopril 10 mg tablet 10 mg PO DAILY #90 tab 05/09/20 Azithromycin [Z-Sanjay 250mg Tab*] 250 mg PO UD DOSE PK #6 tab 05/11/20 Allergies Allergy/AdvReac Type Severity Reaction Status Date / Time No Known Allergies Allergy Verified 02/11/20 15:16 - Worker's Comp Is this a Worker's Comp case?: No [facility] History - Hepatitis A Screen Drug use history?: No High risk sexual behaviors?: No History of sexually transmitted infection?: No Currently employed?: No Childcare worker?: No Do you have indoor plumbing?: Yes Do you have electricity?: Yes Attestation statement:: This patient has bee
[2020-05-11 14:35] LABS: UTC Strep Screen (Rapid) Negative (Negative)
[2020-05-11 14:40] VITALS: BP 108/71; PULSE 89; RESP 20; TEMP 36.8; O2SAT 95
== END 2020-05-11 14:45 | disposition home or self-care (01) ==
PROVIDERS: Emergency Provider Nurse Practitioner Family; PCP Physician Assistant
DX: J02.9 Acute pharyngitis, unspecified (principal); F41.8 Other specified anxiety disorders; M79.7 Fibromyalgia; E78.5 Hyperlipidemia, unspecified; I10 Essential (primary) hypertension; F17.210 Nicotine dependence, cigarettes, uncomplicated; Z79.899 Other long term (current) drug therapy
CPT/HCPCS: 87880; 99201

== ENCOUNTER 2020-05-17 13:25 | Emergency (ER) | payer OTHER, SELFPAY ==
[2020-05-17 13:44] VITALS: BP 118/77; PULSE 85; RESP 18; TEMP 36.9; O2SAT 98; BMI 33.4
--- NOTE | 2020-05-17 14:14 | HMH.EDUTC ---
[facility] – [place] Disposition Clinical Impression: Upper respiratory infection Qualifiers: URI type: unspecified URI Qualified Code(s): J06.9 - Acute upper respiratory infection, unspecified Disposition: Home, Self-Care Condition on Discharge: Good Instructions: Sore Throat, Preventing the Spread of Coronavirus Discharge Instructions Additional Instructions: You was given handout with instructions to Self Quarantine until test back and negative and instructions on how to Self Isolate if your test is positive *Call back to the [facility] in the next 48 hours for your test results Return if needed Straight to ER if any life threatening symptoms Follow up with Family doctor if no improvement or any worsening of symptoms Referrals: Janet Chapman PA [Primary Care Provider] - As needed Time of Disposition: 14:31 Medical Decision Making - Wali Inquiry Pt receiving controlled substance: No Wali was queried for this patient: No Vital Signs: 05/17/20 13:44 Temperature 98.4 F Temperature Source Oral Pulse Rate [Right Brachial] 85 Respiratory Rate 18 Blood Pressure [Right Arm] 118/77 Blood Pressure Mean [Right Arm] 90 Blood Pressure Source [Right Arm] Automatic Cuff Blood Pressure Position [Right Arm] Sitting 02 Sat by Pulse Oximetry 98 Oxygen Delivery Method Room Air - Lab Data Lab results reviewed: Yes: I reviewed the patient's lab results. Lab Results 05/17/20 14:10: Monoscreen Negative Orders (Tests/Meds): ED MEDICATIONS Discontinued Medications Generic Name Dose Route Start Last Admin Trade Name Edmundq PRN Reason Stop Dose Admin Ceftriaxone Sodium 1 gm 05/17/20 14:23 Rocephin 1gm Vial IM 05/17/20 14:24 ONCE ONE Protocol Lidocaine HCl 0 ml 05/17/20 14:23 Lidocaine 1% 10ml Mdv IM 05/17/20 14:24 ONCE ONE Methylprednisolone Sodium Succinate 125 mg 05/17/20 14:23 Solu-Medrol 125mg/2ml Vial IM 05/17/20 14:24 ONCE ONE ORDERS Category Date Time Status SARS-CoV-2, REMI ([place]) Stat Lab 05/17/20 13:51 Received [facility] [place] HPI - General Stated complaint: sore throat cough Time Seen by Provider: 05/17/20 14:14 Mode of Arrival: Ambulatory Source of Information: Patient Limitations: No Limitations Description of Symptoms (Recalled from Triage Doc. by RN): sore throat, headache, cough, body aches HEENT Symptoms (Recalled from RN notes): Yes Resp Symptoms (Recalled from RN notes): Yes Skin Symptoms (Recalled from RN notes): No MS Symptoms (Recalled from RN notes): No Functional Status (Recalled from RN notes): none - History of Present Illness Provider Complaint: Patient states that she hasnt been feeling well and recently had [place] States that for the last several days she has been having sore throat, body aches, headache and over all not feeling well States that she was worried that she may have caught [place] again or have strep so she came in to get checked - Related Data Home Medications Medication Instructions Recorded Confirmed Cholecalciferol (Vitamin D3) 1,000 unit PO DAILY 10/10/19 05/17/20 [Vitamin D3 1,000 Unit Cap] Ergocalciferol (Vitamin D2) 50,000 unit PO QWEEK 10/10/19 05/17/20 [Drisdol] Loratadine [Allergy Relief] 10 mg PO DAILY 01/30/20 05/17/20 Atorvastatin Calcium [Lipitor 20mg 20 mg PO DAILY 05/17/20 05/17/20 Tab] Escitalopram Oxalate See Rx Instructions .ROUTE .COMPLEX 05/17/20 05/17/20 Loratadine [Allerclear] 10 mg PO DAILY 05/17/20 05/17/20 lisinopriL [Prinivil 10mg Tablet] 10 mg PO DAILY 05/17/20 05/17/20 Previous Rx's Medication Instructions Recorded albuterol sulfate 90 mcg/actuation 1 puff INHALATION Q6H PRN #6.7 g 03/30/18 aerosol inhaler oxybutynin chloride 5 mg tablet 5 mg PO BID #180 tab 11/30/19 piroxicam 20 mg capsule 20 mg PO DAILY #90 cap 02/13/20 Allergies Allergy/AdvReac Type Severity Reaction Status Date / Time No Known Allergies Allergy Verified 05/17/20 13:42 - Worker's Comp Is this a Worker
[2020-05-17 14:19] LABS: Monoscreen (Rapid) Negative (Negative)
[2020-05-17 14:33] VITALS: BP 118/77; PULSE 98; RESP 18; TEMP 36.9; O2SAT 85
[2020-05-17 14:37] LABS: UTC Strep Screen (Rapid) Negative (Negative)
[2020-05-18 16:33] LABS: Covid-19 Nasal PCR Sendout UK Not Detected
== END 2020-05-17 14:33 | disposition home or self-care (01) ==
PROVIDERS: Emergency Provider Nurse Practitioner; PCP Physician Assistant
DX: J06.9 Acute upper respiratory infection, unspecified (principal); I10 Essential (primary) hypertension; F41.8 Other specified anxiety disorders; E78.5 Hyperlipidemia, unspecified; M79.7 Fibromyalgia; F17.210 Nicotine dependence, cigarettes, uncomplicated; Z79.899 Other long term (current) drug therapy; Z03.818 Encounter for observation for suspected exposure to other biological agents ruled out
CPT/HCPCS: 86318; 87880; 96372; 99202; 99203; U0003

== ENCOUNTER → 2020-05-19 17:08 | Outpatient (CLI) | payer OTHER, SELFPAY ==
[2020-05-19 17:10] LABS: MANUAL DIFFERENTIAL MANUAL DIFFERENTIAL (MANUAL DIFF)
[2020-05-19 17:56] LABS: Basophils # 0.1 K/mm3 (0-0.2); Basophils % 0.6 % (0.1-2.0); Eosinophils # 0.1 K/mm3 (0.0-0.4); Eosinophils % 0.8 % (0.1-12.0); Hemoglobin 13.9 g/dL (12.2-16.2); Lymphocytes # 4.9 K/mm3 (0.7-4.5); Lymphocytes % 35.3 % (10-50); Mean Corpuscular HGB Conc 33.1 g/dL (31.8-35.4); Mean Corpuscular Hemoglobin 31.5 pg (27.0-31.2); Mean Corpuscular Volume 95.4 fl (81-99); Mean Platelet Volume 8.2 fl (7.4-10.4); Monocytes # 0.5 K/mm3 (0.1-1.0); Monocytes % 3.6 % (1.7-9.3); Neutrophils # 8.2 K/mm3 (1.8-7.8); Neutrophils % 59.6 % (37.0-80.0); Platelet Count 386 K/mm3 (142-424); Red Cell Distribution Width 12.3 % (11.5-17.5); White Blood Count 13.8 K/mm3 (4.8-10.8)
[2020-05-19 21:27] LABS: Eosinophils % 2 % (0-3); Lymphocytes % 31 % (10-50); Monocytes % 3 % (2-9); Neutrophils % 63 % (42-76); Total Cells Counted 100
[2020-05-19 21:28] LABS: Acanthocytes 1+; Platelet Estimate Normal
[2020-05-21 20:01] LABS: EBV Ab VCA, IgG >600.0 U/mL (0.0-17.9); EBV Ab VCA, IgM <36.0 U/mL (0.0-35.9)
== END ==
PROVIDERS: Visit Provider Physician Assistant
DX: J02.9 Acute pharyngitis, unspecified (principal); R69 Illness, unspecified
CPT/HCPCS: 85007; 85014; 85018; 85048; 85049; 86664; 86665; 87070

== ENCOUNTER → 2020-06-02 08:19 | Outpatient (CLI) | payer OTHER, SELFPAY ==
--- NOTE | 2020-06-02 08:19 | MM_ITS ---
PROCEDURE: MM DIG SCREENING MAMM BI W/CAD Digital Breast Tomosynthesis Included CLINICAL INDICATION: screening There is a history of breast cancer patient's mother diagnosed in her 60s and the patient's maternal aunt. COMPARISON: MG DMSB DIG MAMM-SCREEN EDEN from 03/10/2015 TECHNIQUE: Standard CC and MLO images and 3D Tomosynthesis was obtained. R2 CAD reviewed. FINDINGS: Moderate scattered fibroglandular densities are seen throughout both breasts. There are couple of benign-appearing microcalcifications right breast and a single benign-appearing microcalcification left breast. There has been some overall fatty involution of the breast parenchyma when compared to the previous study from February 2015. There is no suspicious lesion in either breast and no suspicious microcalcifications. IMPRESSION: Fibrofatty parenchyma with no suspicious lesions seen BI-RAD Category: 2 Benign Finding(s) FOLLOW-UP: 1YR 1 Year Follow-up (A letter has been sent to the patient regarding results of the study.) Dictated Dr. Vamsi Chowdhury MD 06/03/2020 09:50 Dr. Vamsi Joe MD in [place] 06/03/2020 09:50
== END ==
PROVIDERS: PCP Physician Assistant; Visit Provider Physician Assistant
DX: Z12.31 Encounter for screening mammogram for malignant neoplasm of breast (principal)
CPT/HCPCS: 77063; 77067

== ENCOUNTER 2020-06-12 13:51 | Emergency (ER) | payer OTHER, SELFPAY ==
[2020-06-12 13:58] VITALS: BP 116/81; PULSE 96; RESP 20; O2SAT 98; BMI 33.4
--- NOTE | 2020-06-12 14:30 | HMH.EDUTC ---
[facility] – [place] Disposition Clinical Impression: Low back pain Qualifiers: Chronicity: unspecified Back pain laterality: right Sciatica presence: with sciatica Sciatica laterality: sciatica of right side Qualified Code(s): M54.41 - Lumbago with sciatica, right side Piriformis syndrome Qualifiers: Laterality: right Qualified Code(s): G57.01 - Lesion of sciatic nerve, right lower limb Disposition: Home, Self-Care Condition on Discharge: Good Instructions: DI for Low Back Pain, DI for Sciatica Additional Instructions: Go home and rest. It would be best if you rested tomorrow too. No heavy lifting. No twisting. Take the oral medications as directed. The muscle relaxer (robaxin) will make you drowsy, so don't drive or operate heavy machinery after taking it. Don't start the oral steroids (prednisone) until tomorrow, since you had the shots in here today. Follow up with your regular doctor. GO TO THE ER FOR ANY WORSENING SYMPTOMS OR CONCERN, ESPECIALLY BOWEL OR BLADDER ISSUES, SADDLE AREA NUMBNESS, FEVER, ETC Prescriptions: predniSONE [Prednisone 20mg Tab] 20 mg PO BID 4 Days #8 tab Transmission Status: Received by [facility] Methocarbamol [Robaxin 500mg Tab] 500 mg PO BIDP PRN #30 tab PRN Reason: Muscle Spasm Transmission Status: Received by [facility] Referrals: Janet Chapman PA [Primary Care Provider] - Time of Disposition: 14:54 Medical Decision Making - Medical Records Medical records reviewed: No: I reviewed the patient's medical records. - Wali Inquiry Pt receiving controlled substance: No Vital Signs: 06/12/20 13:58 06/12/20 15:13 Temperature 98.1 F Temperature Source Oral Pulse Rate 96 H Pulse Rate [Radial] 96 H Respiratory Rate 20 20 Blood Pressure 116/81 Blood Pressure [Right Arm] 116/81 Blood Pressure Mean [Right Arm] 92 Blood Pressure Source Automatic Cuff Blood Pressure Source [Right Arm] Automatic Cuff Blood Pressure Position Sitting Blood Pressure Position [Right Arm] Sitting 02 Sat by Pulse Oximetry 98 Oxygen Delivery Method Room Air Room Air Orders (Tests/Meds): ED MEDICATIONS Discontinued Medications Generic Name Dose Route Start Last Admin Trade Name Freq PRN Reason Stop Dose Admin Ketorolac Tromethamine 60 mg 06/12/20 14:30 06/12/20 14:40 Toradol 60mg/2ml Vial IM 06/12/20 14:31 60 mg ONCE ONE Administration Methylprednisolone Sodium Succinate 125 mg 06/12/20 14:30 06/12/20 14:40 Solu-Medrol 125mg/2ml Vial IM 06/12/20 14:31 125 mg ONCE ONE Administration [facility] [place] HPI - General Stated complaint: r hip pain, unknown origin Time Seen by Provider: 06/12/20 14:30 Mode of Arrival: Ambulatory Source of Information: Patient Limitations: No Limitations Description of Symptoms (Recalled from Triage Doc. by RN): complaint of right hip and back pain. states her thigh is numb. no known injury. HEENT Symptoms (Recalled from RN notes): No Resp Symptoms (Recalled from RN notes): No Skin Symptoms (Recalled from RN notes): No MS Symptoms (Recalled from RN notes): Yes Functional Status (Recalled from RN notes): wnl - History of Present Illness Provider Complaint: She c/o 2 days of low back pain that radiates down her right leg. She denies any injury, recent fall or MVA. She also c/o numbness and tingling that shoots down the outside of her right leg at times. She denies any bowel or bladder issues or any saddle area numbness. - Related Data Home Medications Medication Instructions Recorded Confirmed Cholecalciferol (Vitamin D3) 1,000 unit PO DAILY 10/10/19 05/26/20 [Vitamin D3 1,000 Unit Cap] Ergocalciferol (Vitamin D2) 50,000 unit PO QWEEK 10/10/19 05/26/20 [Drisdol] Atorvastatin Calcium [Lipitor 20mg 20 mg PO DAILY 05/17/20 05/26/20 Tab] Escitalopram Oxalate See Rx Instructions .ROUTE .COMPLEX 05/17/20 05/26/20 Loratadine [Allerclear] 10 mg PO DAILY 05/17/20 05/26/20 lisinopriL [Prinivi
[2020-06-12 15:13] VITALS: BP 116/81; PULSE 96; RESP 20; TEMP 36.7; O2SAT 98
== END 2020-06-12 15:15 | disposition home or self-care (01) ==
PROVIDERS: Emergency Provider Nurse Practitioner Family; PCP Physician Assistant
DX: M54.41 Lumbago with sciatica, right side (principal); G57.01 Lesion of sciatic nerve, right lower limb; F41.8 Other specified anxiety disorders; E78.5 Hyperlipidemia, unspecified; I10 Essential (primary) hypertension; M79.7 Fibromyalgia; F17.210 Nicotine dependence, cigarettes, uncomplicated; Z90.79 Acquired absence of other genital organ(s)
CPT/HCPCS: 96372; 99201

== ENCOUNTER → 2020-06-26 07:45 | Outpatient (CLI) | payer OTHER, SELFPAY ==
--- NOTE | 2020-06-26 07:45 | MR_ITS ---
PROCEDURE: MR LUMBAR SPINE WO CON CLINICAL INDICATION: back pain Pt. C/o lbp with sciatica down rt leg x years. Pt denies recent injury or trauma. COMPARISON: No exams were available for comparison TECHNIQUE: Standard multiplanar multiecho sequences are performed without contrast. 3-D MIP and myelographic images are also rendered and reviewed FINDINGS: There is normal alignment. The spinal cord ends at the L1-L2 level. L1-L2: Unremarkable. L2-L3: Mild degenerative disc disease with mild facet and ligamentum hypertrophy with minimal bulging disc. L3-L4: Minimal bulging disc with facet and ligamentum hypertrophy with mild bilateral foraminal narrowing. The sagittal images suggest a small right foraminal/lateral disc protrusion/herniation with minimal superior extrusion causing narrowing of the foramen on the right at L3-L4. This is best demonstrated on series 2, image 5. L4-5: Moderate facet and ligamentum hypertrophy with bilateral lateral recess narrowing and bilateral foraminal narrowing. There is narrowing of the canal at this level. L5-S1: Severe degenerative disc disease with facet and ligamentum hypertrophy. There is prominent disc bulge with a broad-based central left paracentral disc protrusion/disc osteophyte complex. There is severe canal stenosis of 6 mm and there is severe bilateral foraminal narrowing. IMPRESSION: 1. L3-L4: Minimal bulging disc with facet and ligamentum hypertrophy with mild bilateral foraminal narrowing. The sagittal images suggest a small right foraminal/lateral disc protrusion/herniation with minimal superior extrusion causing narrowing of the foramen on the right at L3-L4. This is best demonstrated on series 2, image 5. 2. L4-5: Moderate facet and ligamentum hypertrophy with bilateral lateral recess narrowing and bilateral foraminal narrowing. There is narrowing of the canal at this level. 3. L5-S1: Severe degenerative disc disease with facet and ligamentum hypertrophy. There is prominent disc bulge with a broad-based central left paracentral disc protrusion/disc osteophyte complex. There is severe canal stenosis of 6 mm and there is severe bilateral foraminal narrowing. Dictated by: Brayan Smalls MD 06/27/2020 12:12 Brayan Smalls MD in [place] 06/27/2020 12:12
== END ==
PROVIDERS: PCP Physician Assistant; Visit Provider Nurse Practitioner Family
DX: M54.5 Low back pain (principal)
CPT/HCPCS: 72148; 76376

== ENCOUNTER → 2020-07-01 08:54 | Outpatient (CLI) | payer OTHER, SELFPAY ==
--- NOTE | 2020-07-01 08:54 | US_ITS ---
PROCEDURE: US ABDOMEN COMPLETE CLINICAL INDICATION: poss hernia COMPARISON: No exams were available for comparison FINDINGS: Right groin ultrasound performed. There are small nodes in the right inguinal region. No soft tissue mass or abnormal fluid collection. Images of the left groin are also unremarkable except for a few small lymph nodes. IMPRESSION: Unremarkable ultrasound in both groins. If symptoms persist, CT may provide further evaluation. Dictated by: Brayan Smalls MD 07/02/2020 16:43 Brayan Smalls MD in [place] 07/02/2020 16:43
== END ==
PROVIDERS: PCP Physician Assistant; Visit Provider Nurse Practitioner Family
DX: K46.9 Unspecified abdominal hernia without obstruction or gangrene (principal)
CPT/HCPCS: 76700

== ENCOUNTER 2020-07-10 14:13 | Emergency (ER) | payer OTHER, SELFPAY ==
[2020-07-10 14:25] VITALS: BP 136/70; PULSE 93; RESP 17; TEMP 36.9; O2SAT 97; BMI 33.4
--- NOTE | 2020-07-10 14:39 | HMH.EDUTC ---
[facility] [place] Dis[place] Clinical Impression: Low back pain Qualifiers: Chronicity: chronic Back pain laterality: right Sciatica presence: with sciatica Sciatica laterality: sciatica of right side Qualified Code(s): M54.41 - Lumbago with sciatica, right side Disposition: Home, Self-Care Condition on Discharge: Good Instructions: Low Back Pain, DI for Low Back Pain, Methocarbamol Additional Instructions: *Ibuprofen daniella 6 hours with meal as needed for pain/inflammation *Not additional anti-inflammatory like motrin, aleve, advil with the above amount of ibuprofen. You can still take Tylenol every 4 hours as needed if you need something else for pain * moist heat every 20 minutes 3-4 times a day to affected area *Muscle relaxer as prescribed for muscle spasms but remember, it WILL cause drowsiness You cannot take it and drive, operate machinery or care for small children. *Keep this area active, no movement leads to more stiffness, However take it easy and avoid heavy lifting pushing or pulling *Follow up with you family doctor if no improvement for further treatment Follow up with Pain management as scheduled Return if needed Straight to ER if any life threatening symptoms Prescriptions: Methocarbamol [Robaxin 500mg Tab*] 500 mg PO BID PRN #20 tab PRN Reason: Muscle Spasm Transmission Status: Pending to [facility] Referrals: Janet Chapman PA [Primary Care Provider] - As needed Time of Disposition: 15:00 Medical Decision Making - Wali Inquiry Pt receiving controlled substance: No Wali was queried for this patient: No Vital Signs: 07/10/20 14:25 07/10/20 14:44 Temperature 98.5 F 98.5 F Temperature Source Oral Oral Pulse Rate 93 H Pulse Rate [Left] 93 H Respiratory Rate 17 16 Blood Pressure 136/70 Blood Pressure [Right Arm] 136/70 Blood Pressure Mean [Right Arm] 92 Blood Pressure Source [Right Arm] Automatic Cuff Blood Pressure Position [Right Arm] Sitting 02 Sat by Pulse Oximetry 97 Medical Decision Narrative: Discussed injection of SoluMedrol and patient declined at this time States that last time she was given Robaxin and it helped more with her muscle spasms and sciatica [facility] [place] HPI - General Stated complaint: back pain, no ao Time Seen by Provider: 07/10/20 14:39 Mode of Arrival: Ambulatory Source of Information: Patient Limitations: No Limitations Description of Symptoms (Recalled from Triage Doc. by RN): Pt c/o of chronic back pain. Pt states that last time they gave her muscle relaxor and it really helped . HEENT Symptoms (Recalled from RN notes): No Resp Symptoms (Recalled from RN notes): No Skin Symptoms (Recalled from RN notes): No MS Symptoms (Recalled from RN notes): Yes Functional Status (Recalled from RN notes): stable - History of Present Illness Provider Complaint: Patient states that she has chronic back pain with sciatica States that she is scheduled for pain management but hasnt been able to get in yet States that she has been seen before and was given some Muscle relaxers and it did help with the pain and recently started having pain again in her lower back with sciatica on her right so she come in to see if she could get some before her back got too bad Denies loss of control of bowel or bladder - Related Data Home Medications Medication Instructions Recorded Confirmed Cholecalciferol (Vitamin D3) 1,000 unit PO DAILY 10/10/19 06/16/20 [Vitamin D3 1,000 Unit Cap] Ergocalciferol (Vitamin D2) 50,000 unit PO QWEEK 10/10/19 06/16/20 [Drisdol] Atorvastatin Calcium [Lipitor 20mg 20 mg PO DAILY 05/17/20 06/16/20 Tab] lisinopriL [Prinivil 10mg Tablet] 10 mg PO DAILY 05/17/20 06/16/20 Previous Rx's Medication Instructions Recorded albuterol sulfate 90 mcg/actuation 1 puff INHALATION Q6H PRN #6.7 g 03/30/18 aerosol inhaler piroxicam 20 mg capsule See Rx Instructions .ROUTE 05/23/20 .COMPLEX #90 unspecified oxybutynin chloride 5 mg tablet See Rx Ins
[2020-07-10 14:44] VITALS: BP 136/70; PULSE 93; RESP 16; TEMP 36.9; O2SAT 97
== END 2020-07-10 15:03 | disposition home or self-care (01) ==
PROVIDERS: Emergency Provider Nurse Practitioner; PCP Physician Assistant
DX: M54.41 Lumbago with sciatica, right side (principal); I10 Essential (primary) hypertension; E78.5 Hyperlipidemia, unspecified; F41.8 Other specified anxiety disorders; M79.7 Fibromyalgia; F17.210 Nicotine dependence, cigarettes, uncomplicated; Z79.899 Other long term (current) drug therapy
CPT/HCPCS: 99201

== ENCOUNTER → 2020-07-21 10:27 | Outpatient (POV) | payer OTHER, SELFPAY ==
[2020-07-21 11:03] VITALS: BP 141/88; PULSE 93; RESP 18; TEMP 36.8; O2SAT 98; BMI 33.4
--- NOTE | 2020-07-21 12:44 | HMH.PMCON ---
Assessment and Plan (1) Degenerative joint disease (DJD) of lumbar spine Current visit: Yes Status: Chronic Qualifiers: Spinal osteoarthritis complication: with radiculopathy Qualified Code(s): M47.26 - Other spondylosis with radiculopathy, lumbar region Category: Medical Code(s): M47.816 - Spondylosis without myelopathy or radiculopathy, lumbar region - Assessment and plan all Dx Assessment and Plan for all problems:: We will schedule the patient for an L3-L4 lumbar epidural steroid injection. Patient's not on any anticoagulation therapy. I will follow-up with her after this reassess her symptoms at that time she has been instructed to call the office if she has any issues prior to her next appointment. Dr. Buenrostro has reviewed this note and agrees with this plan of care. This note was dictated using voice recognition software and may contain errors or omissions HPI - Data of Consult Patient: new to practice Requesting Physician: Sobeida Dasilva APRN Primary Care Provider: SIRI Balderas - Consult Narrative Reason for consult: Back pain History of present illness: Ms. Barr is a 44 year old female who presents today for presentation in regards to her low back and leg pain. She is had this pain for quite some time however it began to worsen. She did have a recent MRI showed degenerative changes along with bulging disc. At L3-L4 level she has a disc protrusion with a superior extrusion causing narrowing of the foramen on the right side. Most of her pain is in the right down the L3-L4 dermatomal levels. Patient and I discussed epidural steroid injection she would like to move forward with this. Patient's tried and failed muscle relaxers, anti-inflammatories. Patient states that bending and lifting and walking a long time increases the pain while rest decreases it. She is not on any anticoagulation therapy. CC: Sobeida Dasilva APRN [facility] History I have reviewed the patient's past medical history: Yes Medical History: Reports:: Anxiety, Depression, Hyperlipidemia, Hypertension Denies:: Cancer, Diabetes Mellitus Type 1, Diabetes Mellitus Type 2, Internal Pacemaker, MRSA, Seizures *Have you ever received a pneumonia vaccine?: Yes *Have you received a flu vaccine this season?: Yes Other Medical History: Reports: Arthritis, Fibromyalgia, Sinus Problems. Denies: Blood Transfusion Reaction Other Surgeries: Yes: , Hysterectomy-Partial, Other (carpal tunnel and basal joint fusion - R hand). No: Pacemaker Amputation: No Fractures: No - *Social History Smoking Status: Unknown if ever smoked Tobacco Type: cigarettes # Packs/Day (cigarettes): 1 Alcohol Intake: never Alcohol Intake Frequency:: holidays/special occasions only Substance Use Type: denies use *Occupational Status:: other Housing: apartment Household Members: significant other, other *Travel in the last 8 weeks: None - Psychiatric History Pschychiatric History:: Reports:: Anxiety, Depression Family Hx:: Unable to obtain Review of Systems - Review of Systems ROS General: no recent weight change, no fever, no sleep disturbances Respiratory: no cough, no shortness of air, no recurring pulmonary infections Cardiovascular/Peripheral Vascular: No chest pain, No palpitations, no edema, no shortness of breath. Gastrointestinal: no new onset incontinence, normal bowel movements reported Genitourinary: no new onset incontinence Musculoskeletal: Back pain, leg pain Psychiatric: normal mood/ affect Neurological: [denies new onset weakness in extremities], [denies new onset balance issues] Meds Home Medications Medication Instructions Recorded Confirmed Type albuterol sulfate 90 mcg/actuation 1 puff INHALATION Q6H PRN #6.7 g 03/30/18 06/16/20 Rx aerosol inhaler Cholecalciferol (Vitamin D3) 1,000 unit PO DAILY 10/10/19 06/16/20 History [Vitamin D3 1,000 Unit Cap] Ergocalciferol (Vitamin D2) 50,000 unit PO Q
== END ==
PROVIDERS: PCP Physician Assistant; Visit Provider Clinical Nurse Specialist Family Health
DX: M47.26 Other spondylosis with radiculopathy, lumbar region (principal)
CPT/HCPCS: 99212

== ENCOUNTER 2020-08-01 10:38 | Day surgery (SDC) | payer OTHER, SELFPAY ==
[2020-08-01 11:13] VITALS: BP 134/92; PULSE 81; RESP 18; TEMP 36.7; O2SAT 99; BMI 31.9
--- NOTE | 2020-08-01 11:30 | P.PCN_ITS ---
- Procedure Date: 08/01/20 Time: 11:30 Anesthesiologist:: Miguel Buenrostro MD Complications:: None Pre-procedure Diagnosis:: Degenerative disease of lumbar spine with lumbar radiculopathy symptoms and bulging disc at L3-L4 Post-procedure Diagnosis:: Same Indications for Procedure:: Patient is a pleasant 44-year-old white female who we are treating for low back pain with lumbar radicular symptoms down the right side. She has a herniated disc at L3-L4. She has degenerative changes throughout. She is scheduled see Dr. Dalton at the end of the month. We will do a lumbar pleural steroid i njection today to see if this will help with her pain symptoms. Procedure Details:: Lumbar epidural steroid injection under fluoroscopy Informed consent was obtained and the risk and benefits of the procedure was explained to the patient. The patient was taken to the procedure room. The patient was placed prone on the procedure table. The patient was prepped and draped in sterile fashion. C-arm fluoroscopy was used to view the lumbar spine. Skin and subcutaneous tissues were anesthetized using lidocaine. I placed an 18-gauge epidural needle and advanced into the L4-L5 interspace using fluoroscopic guidance and [id number] to air. After confirmation of needle placement in the epidural space with dye I injected 2 mL of lidocaine 1.5% with Depo-Medrol 80 mg. Patient tolerated the procedure well with no complications. Plan and Disposition:: We will follow-up with her in 2 weeks. Will reevaluate symptoms at that time.
[2020-08-01 11:34] VITALS: BP 125/78; PULSE 85; RESP 18
[2020-08-01 11:35] VITALS: BP 125/78; PULSE 85; RESP 18; O2SAT 99
[2020-08-01 11:53] VITALS: BP 145/91; PULSE 75; RESP 18; O2SAT 99
== END 2020-08-01 11:54 | disposition home or self-care (01) ==
LOC: SC.PAINP 10:39
PROVIDERS: PCP Physician Assistant; Visit Provider Anesthesiology
DX: M51.16 Intervertebral disc disorders with radiculopathy, lumbar region (principal); E78.5 Hyperlipidemia, unspecified; I10 Essential (primary) hypertension; K21.9 Gastro-esophageal reflux disease without esophagitis; F41.9 Anxiety disorder, unspecified; F32.9 Major depressive disorder, single episode, unspecified; Z72.0 Tobacco use; Z90.711 Acquired absence of uterus with remaining cervical stump
CPT/HCPCS: 62323; J1040; Q9966

== ENCOUNTER → 2020-10-28 10:10 | Outpatient (CLI) | payer OTHER, SELFPAY | PROVIDERS: PCP Physician Assistant; Visit Provider Physician Assistant | DX: Z03.818 Encounter for observation for suspected exposure to other biological agents ruled out (principal) | CPT/HCPCS: U0003 ==

== ENCOUNTER → 2020-11-11 14:46 | Outpatient (CLI) | payer OTHER, SELFPAY ==
[2020-11-11 15:51] LABS: Basophils # 0.1 K/mm3 (0-0.2); Basophils % 0.4 % (0.1-2.0); Eosinophils # 0.2 K/mm3 (0.0-0.4); Eosinophils % 1.5 % (0.1-12.0); Hematocrit 42.2 % (37.0-47.0); Hemoglobin 13.9 g/dL (12.2-16.2); Lymphocytes # 2.3 K/mm3 (0.7-4.5); Lymphocytes % 20.5 % (10-50); Mean Corpuscular Hemoglobin 31.1 pg (27.0-31.2); Mean Corpuscular Volume 94.3 fl (81-99); Mean Platelet Volume 8.7 fl (7.4-10.4); Monocytes # 0.5 K/mm3 (0.1-1.0); Monocytes % 4.9 % (1.7-9.3); Neutrophils # 8.1 K/mm3 (1.8-7.8); Neutrophils % 72.7 % (37.0-80.0); Platelet Count 376 K/mm3 (142-424); Red Blood Count 4.47 M/mm3 (4.20-5.40); Red Cell Distribution Width 13.2 % (11.5-17.5); White Blood Count 11.1 K/mm3 (4.8-10.8)
[2020-11-11 15:59] LABS: Chloride 101 mmol/L (98-107); Potassium 4.6 mmoL/L (3.5-5.1); Sodium 135 mmol/L (136-145)
[2020-11-11 16:02] LABS: Alanine Aminotransferase 26 U/L (12-78); Albumin Level 4.1 g/dl (3.5-5.0); Albumin/Globulin Ratio 1.4 (1.1-1.8); Alkaline Phosphatase 101 U/L (38-126); Anion Gap 9.6 mEq/L (5-15); Aspartate Amino Transferase 28 U/L (14-36); Bilirubin,Total 0.5 mg/dl (0.2-1.3); Blood Urea Nitrogen 15 mg/dl (7-17); Carbon Dioxide 29 mmol/L (22.0-30.0); Cholesterol 152 mg/dl (140-200); Estimated Glomerular Filt Rate 90 ml/min (>60); GFR (African American) 109 ML/MIN (>60); Total Protein,Serum 7.1 g/dl (6.3-8.2); Triglycerides 105 mg/dl (30-150); VLDL Cholesterol 21 mg/dL (0-40)
[2020-11-11 16:03] LABS: Calcium 9.9 mg/dl (8.4-10.2); Chol/HDL Ratio 3.5 (1-3.5); Glucose 147 mg/dl (74-100); HDL Cholesterol 44 mg/dl (40-60)
[2020-11-11 16:14] LABS: Direct LDL Cholesterol 87.43 mg/dL (100-129)
[2020-11-11 16:18] LABS: Free T4 (Free Thyroxine) 0.99 ng/dl (0.78-2.19)
[2020-11-11 16:32] LABS: Thyroid Stimulating Hormone 0.79 uIU/mL (0.465-4.68)
[2020-11-11 16:42] LABS: 25-OH Vitamin D, Total 36.3 ng/mL (30-100)
[2020-11-12 09:45] LABS: Hemoglobin A1C 6.4 % (4.0-6.0)
== END ==
PROVIDERS: Visit Provider Physician Assistant
DX: M79.7 Fibromyalgia (principal); E78.5 Hyperlipidemia, unspecified; R73.09 Other abnormal glucose; E55.9 Vitamin D deficiency, unspecified
CPT/HCPCS: 80053; 80061; 82306; 83036; 84439; 84443; 85025

== ENCOUNTER → 2020-12-23 09:31 | Outpatient (CLI) | payer OTHER, SELFPAY ==
--- NOTE | 2020-12-23 09:35 | XR_ITS ---
PROCEDURE: XR HAND RT MIN 3V CLINICAL INDICATION: right hand pain COMPARISON: CR HANDR3 HAND-RT 3 VIEWS from 10/31/2013 CR HANDR3 HAND-RT 3 VIEWS from 09/23/2015 CR XR HAND RT MIN 3V from 10/03/2019 FINDINGS: No fracture or dislocation. No lytic or blastic change. There is normal mineralization. There is a metallic staple at the 1st carpal metacarpal junction. There is some zone of lucency around the stable. Osteoarthritic changes are present at the 1st metacarpal-carpal joint. No fracture or dislocation evident. Lucency is noted at the 1st metacarpal-carpal joint suggesting that the fusion is incomplete. Other findings:None. IMPRESSION: Osteoarthritic change at the 1st metacarpal-carpal junction status post prior fusion with suspected incomplete fusion.. Dictated by: Brayan Smalls MD 12/23/2020 17:15 Brayan Smalls MD in [place] 12/23/2020 17:15
== END ==
PROVIDERS: PCP Physician Assistant; Visit Provider Orthopaedic Surgery
DX: M79.641 Pain in right hand (principal)
CPT/HCPCS: 73130

== ENCOUNTER → 2020-12-30 09:11 | Outpatient (CLI) | payer OTHER, SELFPAY ==
--- NOTE | 2020-12-30 09:13 | XR_ITS ---
PROCEDURE: XR CHEST 2V CLINICAL HISTORY: preop; hypertension; smoker sx 01/08/21 COMPARISON: CT [facility] CT CHEST W/O CONTRAST from 01/04/2017 CR CXR2V XR chest 2V from 06/02/2018 CR XR CHEST 2V from 10/03/2019 CR XR CHEST PORTABLE from 01/30/2020 FINDINGS: The cardiomediastinal silhouette and pulmonary vascularity are within normal limits. The lungs are clear without infiltrates, suspicious nodules, or pleural effusions. No acute bony abnormalities. Minor degenerate changes lower thoracic spine. IMPRESSION: No acute findings. Dictated by: Dr. Vamsi Joe MD 12/30/2020 10:29 Dr. Vamsi Joe MD in [place] 12/30/2020 10:29
[2020-12-30 10:42] LABS: Basophils # 0.1 K/mm3 (0-0.2); Basophils % 0.6 % (0.1-2.0); Eosinophils # 0.1 K/mm3 (0.0-0.4); Hematocrit 44.4 % (37.0-47.0); Hemoglobin 14.3 g/dL (12.2-16.2); Lymphocytes # 2.8 K/mm3 (0.7-4.5); Lymphocytes % 26.4 % (10-50); Mean Corpuscular HGB Conc 32.3 g/dL (31.8-35.4); Mean Corpuscular Volume 92.8 fl (81-99); Mean Platelet Volume 7.2 fl (7.4-10.4); Monocytes # 0.5 K/mm3 (0.1-1.0); Neutrophils # 7.1 K/mm3 (1.8-7.8); Neutrophils % 67.2 % (37.0-80.0); Platelet Count 431 K/mm3 (142-424); Red Blood Count 4.78 M/mm3 (4.20-5.40); Red Cell Distribution Width 12.9 % (11.5-17.5); White Blood Count 10.6 K/mm3 (4.8-10.8)
[2020-12-30 10:57] LABS: Alanine Aminotransferase 20 U/L (12-78); Albumin Level 4.4 g/dl (3.5-5.0); Albumin/Globulin Ratio 1.5 (1.1-1.8); Alkaline Phosphatase 98 U/L (38-126); Anion Gap 10.6 mEq/L (5-15); Aspartate Amino Transferase 24 U/L (14-36); Bilirubin,Total 0.3 mg/dl (0.2-1.3); Blood Urea Nitrogen 11 mg/dl (7-17); Calcium 10.1 mg/dl (8.4-10.2); Carbon Dioxide 26 mmol/L (22.0-30.0); Chloride 105 mmol/L (98-107); Estimated Glomerular Filt Rate 107 ml/min (>60); GFR (African American) 130 ML/MIN (>60); Glucose 105 mg/dl (74-100); Potassium 4.6 mmoL/L (3.5-5.1); Sodium 137 mmol/L (136-145); Total Protein,Serum 7.4 g/dl (6.3-8.2)
== END ==
PROVIDERS: PCP Physician Assistant; Visit Provider Orthopaedic Surgery
DX: Z01.818 Encounter for other preprocedural examination (principal); M65.331 Trigger finger, right middle finger
CPT/HCPCS: 36415; 71046; 80053; 85025

== ENCOUNTER → 2020-12-30 09:59 | Outpatient (CLI) | payer OTHER, SELFPAY | PROVIDERS: Visit Provider Orthopaedic Surgery | DX: Z01.818 Encounter for other preprocedural examination (principal) | CPT/HCPCS: 36415; 80053; 85025 ==

== ENCOUNTER → 2021-01-06 10:06 | Outpatient (CLI) | payer OTHER, SELFPAY ==
[2021-01-06 11:32] LABS: Coronavirus 19 IgG Antibody Negative (Negative); Coronavirus 19 IgM Antibody Negative (Negative)
== END ==
PROVIDERS: Visit Provider Orthopaedic Surgery
DX: Z01.818 Encounter for other preprocedural examination (principal); Z20.822 Contact with and (suspected) exposure to COVID-19; M65.331 Trigger finger, right middle finger; G56.01 Carpal tunnel syndrome, right upper limb
CPT/HCPCS: 36415; 86328

== ENCOUNTER 2021-01-08 06:10 | Day surgery (SDC) | payer OTHER, SELFPAY ==
[2021-01-06 10:52] VITALS: BMI 33.4
[2021-01-08] VITALS (11 sets, daily range): BP systolic 120–143; BP diastolic 43–77; PULSE 66–81; RESP 16–23; TEMP 36.3–36.9; O2SAT 92–98
--- NOTE | 2021-01-08 06:53 | HMH.ANESCL ---
[facility] Anesthesia Checklist - Patient Identification Patient Identification: Arm Band - Structural Data Admitted From: Home Planned Operative Procedure/s: Trigger finger release Consent for Planned Operative Procedure(s) Verified: Yes - Additional verifications Anesthesia Reactions: No Hx Blood Transfusions: No Blood Transfusion Reaction: No - Airway Assessment C-Spine Mobility Assessed: Yes TMJ Mobility Assessed: Yes Dentition: Dentures-good fit - Neurological Assessment Level of Consciousness: Awake, Alert, Appropriate Hx Seizures: No Numbness or tingling in extremities: No - Anesthesia Plan Anesthesia Risk discussed: Yes Anesthesia Plan: Verified ASA Class: II Anesthesia Type: General [facility] History I have reviewed the patient's past medical history: Yes Medical History: Reports:: Anxiety, Depression, Hyperlipidemia, Hypertension Denies:: Cancer, Diabetes Mellitus Type 1, Diabetes Mellitus Type 2, Internal Pacemaker, MRSA, Seizures *Have you ever received a pneumonia vaccine?: No *Have you received a flu vaccine this season?: Yes Other Medical History: Reports: Arthritis, Fibromyalgia, Sinus Problems. Denies: Blood Transfusion Reaction Anesthesia experience/problems:: None Laterality Cases: Right: Carpal Tunnel Release, Other Other Surgeries: Yes: , Hysterectomy-Partial, Other. No: Pacemaker Amputation: No Fractures: No - *Social History Smoking Status: Current every day smoker Tobacco Type: cigarettes # Packs/Day (cigarettes): 1 Alcohol Intake: never Alcohol Intake Frequency:: holidays/special occasions only Substance Use Type: denies use *Occupational Status:: unemployed Housing: house Household Members: family *Travel in the last 8 weeks: None - Psychiatric History Pschychiatric History:: Reports:: Anxiety, Depression Family Hx:: No significant family history
--- NOTE | 2021-01-08 08:36 | HMH.ANESI ---
[facility] Anesthesia Record Part I Intake, IV Amount: 600 Estimated blood loss (mL): 0 Urine output (mL): 0 Blood Pressure: 120/43 SaO2: 92 Pulse Rate: 73 Respiratory Rate: 23 Temperature: 98.2 F Patient is:: Drowsy Stable to PACU at:: 08:31
--- NOTE | 2021-01-08 11:41 | HMH.ANESII ---
[facility] Anesthesia Record Part II Discharge Time: 09:01 Destination: Surgical Day Care (OP Surgery) PACU nurse assessment reviewed?: Yes Patient Condition:: Good Anesthesia Complications:: None Swallowing reflex intact?: Yes Cyanosis?: No Blood Pressure: 134/77 Pulse Rate: 76 Temperature: 98.2 F Mental Status: Alert & Oriented Pain level:: 0 Nausea and/or vomitting:: None Intake, IV Amount: 1,000
--- NOTE | 2021-01-08 12:05 | HMH.OPNOTE ---
Date of procedure: 01/08/21 Pre-op Diagnosis:: Trigger finger, right third digit Post-op Diagnosis:: Same Procedure performed:: Trigger finger release, right third digit Surgeon:: Matthew Rivera MD Gear Tooth Lapping Machine Operator(s):: Mansi Linder DEPUTY FIRE CHIEF:: Other (Nita Auguste) Anesthesia: LMA Estimated blood loss (mL): 1 Clinical Note:: Patient is a 45-year-old female with triggering of her right middle finger. She had symptoms on and off for over 5 years which failed to respond satisfactorily to conservative management. As the patient failed to respond adequately to conservative management and reports significant pain, disability and dysfunction with her right hand surgical release of the A1 pulleys is necessary to relieve symptoms, improve function and decrease the pain and to prevent permanent stiffness and damage. Operative findings:: The intraoperative findings showed thickened and inflamed A1 carly of the right middle finger. Also there is synovitis of the flexor tendon sheath. The flexors tendons are thickened and somewhat degenerate but there is no complete tear. There is no evidence of any space-occupying lesions over the tendons or within the A1 carly. Operative note:: On the day of the surgery the patient was met in the preoperative area. Patient was positively identified and the operative site was marked and initialed by me. A physical examination was performed and the chart was updated. I again discussed the procedure, risks and benefits and alternatives with the patient. The complications discussed include but are not limited to- infection, injury to nerves, tendons and blood vessels, incisional scar (cosmesis), scar tenderness/contracture, DVT/PE, finger stiffness, bowstringing of the tendons, CRPS (complex regional pain syndrome- pain, sensory and temperature changes, swelling and stiffness), painful scar, incomplete relief of pain, incomplete return of function, recurrence and likely need for further surgery in future and also the risks of anesthesia including heart attack, stroke, and even . I have discussed how there is a small but real possibility of loss of use of the arm, loss of the limb or loss of life itself. I have also explained how additional surgery may be required if there are any complications or recurrence. We have also discussed the postoperative recovery and rehabilitation required, the likely need for hand therapy, the possibility of stiffness, chronic pain and we've also discussed the option of nonsurgical treatment. Patient asked appropriate questions and all have been answered by me. Patient wished to proceed with the surgery. Consent form was reviewed and signed. Patient understood the risks, agreed to proceed with surgery and no guarantees or assurances were given or implied. The patient was brought to the operating room and placed supine on the operating table. The right upper extremity was placed over a side table. All the bony prominences were well-padded. General anesthesia was administered with cat skinner. A well-padded tourniquet cuff was placed over the right upper arm. The right upper extremity was prepped and draped in the usual sterile fashion. A preprocedure timeout was performed as per hospital policy. The skin incisions were marked at the proximal level of the A1 carly of the right middle finger. The limb was exsanguinated with Esmarch bandage and tourniquet inflated to 250 mmHg. Please see nursing records for the total tourniquet time. Next, a transverse incision approximately 1 cm in length was made at the level of the proximal extent of A1 carly of the middle finger. Dissection was carried down through the subcutaneous fat down to the level of the flexor tendon sheath with care taken to identify and protect the neurovascular bundles. The sheath was opened under direct vision with a scalpel, and then a scissor was used to release it under direct vision from the proximal extent of the A1 carly to just proximal to the p
== END 2021-01-08 09:51 | disposition home or self-care (01) ==
LOC: OR 06:11
PROVIDERS: PCP Physician Assistant; Visit Provider Orthopaedic Surgery
PROC: (CPT 26055; principal; 2021-01-08 07:30)
DX: M65.341 Trigger finger, right ring finger (principal)
CPT/HCPCS: 26055; 96374; J2405

== ENCOUNTER → 2021-01-19 15:15 | Outpatient (CLI) | payer OTHER, SELFPAY | PROVIDERS: Visit Provider Physician Assistant | DX: N61.1 Abscess of the breast and nipple (principal) | CPT/HCPCS: 87070; 87077; 87186; 87205 ==

== ENCOUNTER 2021-01-25 00:01 | Emergency (ER) | payer OTHER, SELFPAY ==
[2021-01-25 00:03] VITALS: BP 133/55; PULSE 76; RESP 17; TEMP 36.7; O2SAT 100; BMI 33.4
--- NOTE | 2021-01-25 00:46 | CT_ITS ---
PROCEDURE: CT ABDOMEN PELVIS W CON CLINICAL INDICATION: RIGHT UPPER ABDOMINAL PAIN Right quadrant pain COMPARISON: CT ABDPELWO CT abdomen pelvis wo con from 06/02/2018 TECHNIQUE: IV Contrast: 75ML Isovue 370 Oral Contrast None Axial images obtained with sagittal and coronal reformats. All CT scans at the facility use one or more dose reduction, viz: automated exposure control, ma/kV adjustment per patient size (including targeted exams where dose is matched to indication, i.e. head), or iterative reconstruction technique. FINDINGS: LOWER THORAX: No acute finding ABDOMEN & PELVIS: Fatty liver. The gallbladder is contracted. Mild nonspecific thickening of the distal esophagus. The spleen, adrenal glands, pancreas, and kidneys have an unremarkable appearance. No intestinal obstruction or free air. Unremarkable appearing appendix. Colonic diverticulosis without evidence of diverticulitis. Prior hysterectomy. No evidence of intestinal obstruction or free air. There is tiny umbilical hernia containing fat. Degenerative disc disease and facet arthritic changes are present at L5-S1. 8 mm sclerotic focus involves the left ilium superior to the acetabulum and may represent a bone island. IMPRESSION: 1. Colonic diverticulosis without evidence of diverticulitis. 2. Contracted gallbladder. 3. Fatty liver Dictated by: Brayan Smalls MD 01/25/2021 10:11 Brayan Smalls MD in [place] 01/25/2021 10:11
[2021-01-25 00:51] VITALS: BP 111/61; PULSE 68; O2SAT 100
--- NOTE | 2021-01-25 00:54 | HMH.EDNVD ---
ED Disposition Clinical Impression: Trichomonas infection Abdominal pain Qualifiers: Abdominal location: right upper quadrant Qualified Code(s): R10.11 - Right upper quadrant pain Disposition: Home, Self-Care Condition on Discharge: Good Instructions: DI for Acute Abdominal Pain Additional Instructions: use meds and see pcp for gb eval Prescriptions: metroNIDAZOLE [Flagyl 500mg Tablet] 500 mg PO Q8H #21 tab Transmission Status: Pending to [facility] Referrals: Janet Chapman PA [Primary Care Provider] - - Critical Care Critical Care Time: No Attestation: On 01/25/21, the high probability of a clinically significant, sudden or life threatening deterioration of the following system(s) required my full and direct attention, intervention and personal management. The time I documented below is in addition to time spent performing reported procedures but includes the following listed in this critical care notation. Medical Decision Making - Medical Records Medical records reviewed: Yes: I reviewed the patient's medical records. - Wali Inquiry Pt receiving controlled substance: No Vital Signs: 01/25/21 00:03 01/25/21 00:51 01/25/21 01:00 Temperature 98.0 F Temperature Source Oral Pulse Rate 68 80 Pulse Rate [Right Brachial] 76 Respiratory Rate 17 Blood Pressure 111/61 125/71 Blood Pressure [Right Arm] 133/55 L Blood Pressure Mean 77 89 Blood Pressure Mean [Right Arm] 81 Blood Pressure Source [Right Arm] Automatic Cuff 02 Sat by Pulse Oximetry 100 100 99 Oxygen Delivery Method Room Air Room Air Room Air - Lab Data Lab results reviewed: Yes: I reviewed the patient's lab results. Lab Results 01/25/21 00:10: Urine Color Yellow, Urine Appearance Sl cloudy, Urine pH 6.0, Ur Specific Ivor 1.020, Urine Protein Negative, Urine Glucose (UA) Negative, Urine Ketones Negative, Urine Blood Negative, Urine Nitrate Negative, Urine Bilirubin Negative, Urine Urobilinogen 0.2, Ur Leukocyte Esterase Negative, Urine RBC None, Urine WBC Occasional, Ur Squamous Epith Cells 3-5, Urine Bacteria 1+, Urine Trichomonas 2+ 01/25/21 00:50: WBC 10.6, RBC 4.56, Hgb 13.6, Hct 43.1, MCV 94.4, MCH 29.7, MCHC 31.5 L, RDW 12.6, Plt Count 358, MPV 7.6, Neut % (Auto) 61.6, Lymph % (Auto) 30.1, Cassia % (Auto) 5.9, Eos % (Auto) 1.7, Baso % (Auto) 0.7, Neut # (Auto) 6.5, Lymph # (Auto) 3.2, Cassia # (Auto) 0.6, Eos # (Auto) 0.2, Baso # (Auto) 0.1, ESR 14 01/25/21 00:50: Sodium 135 L, Potassium 4.3, Chloride 102, Carbon Dioxide 26, Anion Gap 11.3, BUN 20 H, Creatinine 0.80, Estimated Creat Clear 137, Estimated GFR 77, Est GFR ( Amer) 93, Glucose 123 H, Calcium 9.5, Total Bilirubin 0.2, Direct Bilirubin 0.0, Conjugated Bilirubin 0.0, Indirect Bilirubin 0.2, Unconjugated Bilirubin 0.2, AST 32, ALT 23, Alkaline Phosphatase 96, C-Reactive Protein 4.7 H, Total Protein 7.5, Albumin 4.5, Globulin 3.0, Albumin/Globulin Ratio 1.5, Amylase 54, Lipase 96, Procalcitonin 0.053 Result diagrams: 01/25/21 00:50 01/25/21 00:50 Orders (Tests/Meds): ED MEDICATIONS Generic Name Dose Route Start Last Admin Trade Name Freq PRN Reason Stop Dose Admin Sodium Chloride 1,000 mls @ 999 mls/hr 01/25/21 01:00 01/25/21 01:06 Sod Chlor 0.9% 1000ml Bag IV 01/25/21 02:00 999 mls/hr .Q1H1M ESTEFANY Administration Sodium Chloride 8 ml 01/25/21 01:26 01/25/21 01:29 Sodium Chloride 0.9% 10ml Vial IV 02/24/21 01:25 8 ml NEEDED PRN Administration dilute pepcid Discontinued Medications Generic Name Dose Route Start Last Admin Trade Name Freq PRN Reason Stop Dose Admin Famotidine 20 mg 01/25/21 01:26 01/25/21 01:29 Famotidine 20mg/2ml Vial IV 01/25/21 01:27 20 mg ONCE ONE Administration Iopamidol 75 ml 01/25/21 01:59 01/25/21 02:00 Iopamidol-370 (76%);100ml Bottle IV 01/25/21 02:00 75 ml ONCE ONE Administration Ketorolac Tromethamine 30 mg 01/25/21 01:26 01/25/21 01:29 K
[2021-01-25 00:55] LABS: Microscopic, Urine URINE MICROSCOPIC (MICROSCOPIC)
[2021-01-25 00:57] LABS: Basophils # 0.1 K/mm3 (0-0.2); Basophils % 0.7 % (0.1-2.0); Eosinophils # 0.2 K/mm3 (0.0-0.4); Eosinophils % 1.7 % (0.1-12.0); Hematocrit 43.1 % (37.0-47.0); Hemoglobin 13.6 g/dL (12.2-16.2); Lymphocytes # 3.2 K/mm3 (0.7-4.5); Lymphocytes % 30.1 % (10-50); Mean Corpuscular HGB Conc 31.5 g/dL (31.8-35.4); Mean Corpuscular Hemoglobin 29.7 pg (27.0-31.2); Mean Corpuscular Volume 94.4 fl (81-99); Mean Platelet Volume 7.6 fl (7.4-10.4); Monocytes # 0.6 K/mm3 (0.1-1.0); Monocytes % 5.9 % (1.7-9.3); Neutrophils # 6.5 K/mm3 (1.8-7.8); Neutrophils % 61.6 % (37.0-80.0); Platelet Count 358 K/mm3 (142-424); Red Blood Count 4.56 M/mm3 (4.20-5.40); Red Cell Distribution Width 12.6 % (11.5-17.5); White Blood Count 10.6 K/mm3 (4.8-10.8)
[2021-01-25 00:57] LABS: Appearance,Urine SL CLOUDY (Clear); Bilirubin,Urine Negative (Negative); Blood, Urine Negative (Negative); Color,Urine YELLOW (Yellow); Glucose,Urine (UA) Negative (Negative); Ketones,Urine Negative (Negative); Leukocyte Esterase,Urine Negative (Negative); Nitrate,Urine Negative (Negative); Protein,Urine Negative (Negative); Urobilinogen,Urine 0.2 EU/dl (0.2)
[2021-01-25 01:00] VITALS: BP 125/71; PULSE 80; O2SAT 99
[2021-01-25 01:10] LABS: Alanine Aminotransferase 23 U/L (12-78); Albumin Level 4.5 g/dl (3.5-5.0); Albumin/Globulin Ratio 1.5 (1.1-1.8); Alkaline Phosphatase 96 U/L (38-126); Amylase 54 U/L (30-110); Anion Gap 11.3 mEq/L (5-15); Aspartate Amino Transferase 32 U/L (14-36); Bilirubin,Indirect 0.2 mg/dL (0.0-0.9); Bilirubin,Total 0.2 mg/dl (0.2-1.3); Bilirubin,Unconjugated 0.2 mg/dL (0.0-1.1); Blood Urea Nitrogen 20 mg/dl (7-17); Calcium 9.5 mg/dl (8.4-10.2); Carbon Dioxide 26 mmol/L (22.0-30.0); Chloride 102 mmol/L (98-107); Creatinine Clearance Estimated 137 mL/min (50-200); Estimated Glomerular Filt Rate 77 ml/min (>60); GFR (African American) 93 ML/MIN (>60); Glucose 123 mg/dl (74-100); Lipase 96 U/L (23-300); Potassium 4.3 mmoL/L (3.5-5.1); Sodium 135 mmol/L (136-145); Total Protein,Serum 7.5 g/dl (6.3-8.2)
[2021-01-25 01:15] LABS: C-Reactive Protein 4.7 mg/L (0-4)
[2021-01-25 01:24] LABS: Bacteria,Urine 1+ /lpf; WBC,Urine Occasional #/hpf (0-3)
[2021-01-25 01:25] LABS: Trichomonas,Urine 2+ /lpf
[2021-01-25 01:27] LABS: Procalcitonin 0.053 ng/mL (0.0-2.0)
[2021-01-25 01:30] VITALS: BP 112/69; PULSE 75; O2SAT 98
[2021-01-25 01:31] LABS: Erythrocyte Sedimentation Rate 14 mm/hr (0-20)
[2021-01-25 02:31] VITALS: BP 112/54; PULSE 77; RESP 18; O2SAT 98
[2021-01-25 02:49] VITALS: BP 112/54; PULSE 76; RESP 18; TEMP 36.7; O2SAT 97
== END 2021-01-25 03:01 | disposition home or self-care (01) ==
PROVIDERS: Emergency Provider Emergency Medicine; PCP Physician Assistant
DX: R10.11 Right upper quadrant pain (principal); A59.9 Trichomoniasis, unspecified; M79.7 Fibromyalgia; I10 Essential (primary) hypertension; F41.8 Other specified anxiety disorders; E78.5 Hyperlipidemia, unspecified; F17.210 Nicotine dependence, cigarettes, uncomplicated; Z79.899 Other long term (current) drug therapy
CPT/HCPCS: 74177; 80053; 80076; 81001; 82150; 83690; 84145; 85025; 85651; 86140; 96374; 96375; 99283; J2405; Q9967

== ENCOUNTER → 2021-02-05 08:27 | Outpatient (CLI) | payer OTHER, SELFPAY ==
--- NOTE | 2021-02-05 08:27 | US_ITS ---
PROCEDURE: US GALLBLADDER CLINICAL INDICATION: RUQ Pain COMPARISON: No exams were available for comparison FINDINGS: Pancreas: Unremarkable/Not well seen Liver: Unremarkable. There is appropriate direction of blood flow within a non dilated portal vein. Right kidney: Unremarkable appearing. No hydronephrosis. Gallbladder: No stones are evident. There is no gallbladder wall thickening. Common duct is normal in diameter. IMPRESSION: Negative gallbladder ultrasound. No stones evident. Dictated by: Brayan Smalls MD 02/05/2021 16:45 Brayan Smalls MD in [place] 02/05/2021 16:45
== END ==
PROVIDERS: PCP Physician Assistant; Visit Provider Nurse Practitioner Family
DX: R10.9 Unspecified abdominal pain (principal)
CPT/HCPCS: 76705

== ENCOUNTER → 2021-03-12 07:57 | Outpatient (CLI) | payer OTHER, SELFPAY ==
--- NOTE | 2021-03-12 08:21 | MR_ITS ---
PROCEDURE INFORMATION: Exam: MR Lumbar Spine Without and With Contrast Exam date and time: 03/12/2021 8:21 AM Age: 45 years old Clinical indication: Low back pain; Prior surgery; Surgery date: 1-6 months; Additional info: Low back pain. Prior HX lumbar surgery [id number] ago. Bilateral lbp and leg pain, numbness, and tingling. Symptoms [id number]. No injury or trauma. 20ml prohance given. Lot: [id number] exp: Jul 2023 bun: 13 cre: 0.7 gfr: 90. Prior MR 06-26-20 TECHNIQUE: Imaging protocol: Multiplanar magnetic resonance images of the lumbar spine without and with intravenous contrast. Contrast material: PROHANCE; Contrast volume: 20 ml; Contrast route: IV; COMPARISON: MR LUMBAR SPINE WO CON 06/26/2020 8:04 AM FINDINGS: Vertebrae: 2 mm of degenerative retrolisthesis of L5 on S1. No acute fracture seen. The AP spinal canal diameter is diminished on a developmental basis due to shortened pedicles. Spinal cord: The conus medullaris ends normally. Disc height loss and spondylosis is marked at L5-S1, as before. Mild disc height loss at L2-L3 with mild prevertebral spondylosis. T11-T12: No significant interval change. Facet arthropathy and likely buckled ligamentum flavum. No high-grade stenoses. L1-L2: No significant interval change. Unremarkable. L2-L3: No significant interval change. Mild disc bulge and facet arthropathy. The central spinal canal remains patent. Mild right lateral recess stenosis. No significant foraminal stenoses. L3-L4: No significant interval change. [id number] facet arthropathy. No significant central spinal canal stenosis. Lateral recess stenoses are mild. A small cranially migrating right foraminal disc extrusion measures approximately 4 mm in AP dimension and extends 4 mm above disc space causing moderate right neural foraminal stenosis, disc material contacting the exiting right L3 nerve root. No significant left neural foraminal narrowing. L4-L5: Mild disc bulge as well as moderate facet arthropathy and ligamentum flavum buckling. Mild central spinal canal stenosis, in part on a developmental basis. Lateral recess stenoses are mild. Mild left neural foraminal stenosis. No significant right neural foraminal narrowing. L5-S1: Interval laminectomies (and/or laminotomies). Some residual ligamentum flavum may be present. Improved patency of the central spinal canal. Marked diffuse disc osteophyte complex is similar to the prior study. Moderate facet arthropathy. In particular, broad-based left paracentral disc osteophyte complex which is nonenhancing. The left lateral recess remains effaced near the left S1 nerve root. No significant epidural fibrosis. Moderate bilateral neural foraminal stenoses, as before. Soft tissues: Nonspecific edema in the back subcutaneous fat, potentially dependent/positional and/or postoperative. No soft tissue fluid collection. IMPRESSION: 1. Persistent left lateral recess stenosis at L5-S1 may be cause of left S1 distribution radiculopathy. 2. A right foraminal disc extrusion is again demonstrated at L3-L4 which may be cause of right L3 distribution radiculopathy. 3. Moderate bilateral neural foraminal stenoses again demonstrated at L5-S1.
[2021-03-12 08:22] LABS: Blood Urea Nitrogen 13 mg/dl (7-17); Estimated Glomerular Filt Rate 90 ml/min (>60); GFR (African American) 109 ML/MIN (>60)
== END ==
PROVIDERS: PCP Physician Assistant; Visit Provider Neurological Surgery
DX: M54.6 Pain in thoracic spine (principal); M79.604 Pain in right leg; R20.0 Anesthesia of skin; Z98.890 Other specified postprocedural states
CPT/HCPCS: 36415; 72158; 76376; 82565; 84520; A9576

== ENCOUNTER 2021-05-25 16:18 | Emergency (ER) | payer OTHER, SELFPAY ==
[2021-05-25 16:40] VITALS: BP 126/79; PULSE 83; RESP 19; TEMP 36.8; O2SAT 97; BMI 31.9
--- NOTE | 2021-05-25 17:04 | HMH.EDUTC ---
[facility] [place] Clinical Impression: Sinusitis Qualifiers: Sinusitis location: unspecified location Chronicity: unspecified Qualified Code(s): J32.9 - Chronic sinusitis, unspecified Disposition: Home, Self-Care Condition on Discharge: Good Instructions: Sinusitis, DI for Sinusitis Additional Instructions: *Monitor Temp, Over the counter Motrin or Tylenol as directed/as needed Tylenol every 4 hours and Motrin every 6 hours (as long as your family doctor has told you that you can take it) for fever or pain. and straight to ER if unable to lower temp less than 101.0 after medication given *Warm salt water gargles may help to soothe the throat *Throat Lozenges *Warm fluids like tea with honey may help to soothe the throat *Sleep elevated *Humidifier/Vaporizer *Flonase 2 sprays in each nostril daily but be aware that it may take 2-3 days before you notice improvement Take medication as prescribed Your throat swab was sent for culture. Those results are typically sent to your primary care. Be sure to follow up in 2-3 days with your family doctor/primary care physician if no improvement so they can review those result and treat if necessary. If you don?t have a primary care doctor, I recommend you get one but in the mean time, you will have to return to a walk in clinic Follow up IMMEDIATELY for new or worsening symptoms or no Noticeable improvement over the next 48-72 hours. 911 for difficulty breathing or swallowing You were tested for today for COVID19 your test result should be back in the next 24-48 hours, you may call to the [facility] to see if your test results are back in the next 48 hours [phone] [facility] hours are 9am-9pm You was given a handout with instructions for Self Quarantine and Self isolation for while you wait on test results and what to do if they are positive If you are positive the Health Dept will be contacting you also Prescriptions: Amoxicillin/Potassium Clav [Augmentin 875-125 Tablet] 1 tab PO Q12H 10 Days #20 tab Transmission Status: Pending to [facility] Fluticasone Propionate [Flonase 50mcg nasal spray 16gm] 1 spr NS DAILY #1 bottle Transmission Status: Pending to [facility] methylPREDNISolone [Medrol 4mg tab] 4 mg PO DIRECTED #21 tab Transmission Status: Pending to [facility] Referrals: Kaushal Brandon MD [Primary Care Provider] - As needed Time of Disposition: 17:15 Medical Decision Making - Wali Inquiry Pt receiving controlled substance: No Wali was queried for this patient: No Vital Signs: 05/25/21 16:40 Temperature 98.3 F Temperature Source Oral Pulse Rate [Right Brachial] 83 Respiratory Rate 19 Blood Pressure [Right Arm] 126/79 Blood Pressure Mean [Right Arm] 94 Blood Pressure Source [Right Arm] Automatic Cuff Blood Pressure Position [Right Arm] Sitting 02 Sat by Pulse Oximetry 97 Oxygen Delivery Method Room Air - Lab Data Lab results reviewed: Yes: I reviewed the patient's lab results. Orders (Tests/Meds): ORDERS Category Date Time Status Covid-19 Nasal PCR ([facility]) Routine Lab 05/25/21 16:42 Ordered [facility] UTC HPI - General Stated complaint: Symptoms: cough,DOMINGUEZ,congestion Time Seen by Provider: 05/25/21 17:04 Mode of Arrival: Ambulatory Source of Information: Patient Limitations: No Limitations Description of Symptoms (Recalled from Triage Doc. by RN): PATIENT C/O CONGESTION, HEADACHE, SORE THROAT, AND BODY ACHES SINCE TUESDAY HEENT Symptoms (Recalled from RN notes): Yes Resp Symptoms (Recalled from RN notes): No Skin Symptoms (Recalled from RN notes): No MS Symptoms (Recalled from RN notes): No Functional Status (Recalled from RN notes): WNL - History of Present Illness Provider Complaint: Patient states that she has been having sinus pain and pressure for a couple weeks that has got worse over the last few days States that she has since been having sinus headache, pressure behind her eyes, cough sore throat and body aches State
[2021-05-25 17:10] LABS: UTC Strep Screen (Rapid) Negative (Negative)
[2021-05-25 17:24] VITALS: BP 126/79; PULSE 83; RESP 19; TEMP 36.8; O2SAT 97
--- NOTE | 2021-05-26 11:14 | PC.NURSE ---
PT NOTIFIED OF POSITIVE COVID RESULTS
== END 2021-05-25 17:26 | disposition home or self-care (01) ==
PROVIDERS: Emergency Provider Nurse Practitioner; PCP Emergency Medicine
DX: U07.1 COVID-19 (principal); J32.9 Chronic sinusitis, unspecified; F41.8 Other specified anxiety disorders; I10 Essential (primary) hypertension; E78.5 Hyperlipidemia, unspecified; M79.7 Fibromyalgia; F17.210 Nicotine dependence, cigarettes, uncomplicated; Z79.899 Other long term (current) drug therapy
CPT/HCPCS: 87880; 99203; G0463; U0003

== ENCOUNTER 2021-06-19 09:30 | Outpatient (RCR) | payer OTHER, SELFPAY | END 2021-06-19 09:35 | disposition home or self-care (01) | LOC: PT 09:30 | PROVIDERS: Visit Provider Neurological Surgery | DX: M54.5 Low back pain (principal) | CPT/HCPCS: 97010; 97014; 97110; 97163; 97164; G0283 ==

== ENCOUNTER → 2021-07-14 09:27 | Outpatient (POV) | payer OTHER, SELFPAY ==
[2021-07-14 09:50] VITALS: BP 137/80; PULSE 84; RESP 18; O2SAT 97; BMI 33.4
--- NOTE | 2021-07-14 13:54 | HMH.PMCON ---
Assessment and Plan (1) Degenerative joint disease (DJD) of lumbar spine Status: Chronic Category: Medical Code(s): M47.816 - Spondylosis without myelopathy or radiculopathy, lumbar region (2) Lumbar radiculopathy Status: Chronic Category: Medical Code(s): M54.16 - Radiculopathy, lumbar region - Assessment and plan all Dx Assessment and Plan for all problems:: Patient is a pleasant 45-year-old white day for degenerative disc has had surgery with Dr. Dalton in September 2020 for herniated disc she got short-term relief, pain returned to left low back area and left lower extremity. She did undergo 6 weeks of therapy which improved left hip pain, however, pain continues on the right side. She did undergo imaging of her lumbar spine in 06/26/2020?severe stenosis noted at that time along with severe degenerative disc disease and facet and ligamentum atrophy. Patient I did discuss options in the clinic. She has deferred on injective therapy. She is managed with [place] by her primary care provider. We did discuss a short-term dose of oral corticosteroids. Injective therapy has not been beneficial for the patient's pain. We did discuss options of intrathecal therapy versus spinal cord stimulation. 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 She was given educational information today guarding the procedures. We will follow-up with patient in 2 weeks for reevaluation of symptoms to see if the steroids have been beneficial for her pain. We will also discussed options of intrathecal therapy versus spinal cord stimulation proceed with injective therapy at this time. She has tried injections which have not helped Patient has been instructed to contact the clinic with any concerns before the next appointment. Dr. Buenrostro has reviewed this note and agrees with this plan of care. This note was dictated using voice recognition software and make contain errors or omissions. HPI - Data of Consult Patient: new to practice Consult date: 07/14/21 Requesting Physician: Reema Lam APRN - Consult Narrative Reason for consult: Low back pain History of present illness: Ms. Barr is a 45 year old female today for consultation for low back pain. Patient is having pain low back area with radiation to right thigh and knee. She also. She describes throbbing with numbness and tingling. She says that she is also having pain to her foot. Patient did undergo surgical intervention for herniated disc in September 2020. She has significant on her surgery until January 2021. She began to develop severe left-sided [place]. At that time Dr. CRABTREE therapies which he says helped significantly with her leg pain. Fortunately, she is now having right sided back pain did not resolve with physical therapy. She is also complaining of morning pain in the right leg. She says leaning forward gives her relief. She has had buttock pain along with severe weakness into her lower extremities. She does rate her pain continued she has tried and failed conservative therapies of physical therapy for greater than 6 months along with stretches. She is also tried anti-inflammatories in the past. She does have an MRI from 06/26/2020. Denies any saddle anesthesia or changes in bowel or bladder habit. Denies any trauma/injury to the area. She denies fractures to the area. CC: Reema Lam APRN [facility] History Medical History: Reports:: Anxiety, Depression, Hyperlipidemia, Hypertension Denies:: Cancer, Diabetes Mellitus Type 1, Diabetes Mellitus Type 2, Internal Pacemaker, MRSA, Seizures *Have you ever received a pneumonia vaccine?: No *Have you received a flu vaccine this season?: No Other Medical History: Reports: Arthritis, Fibromyalgia, Sinus Problems. Denies: Blood Transfusion Reaction Laterality Cases: Right: Carpal Tunnel Release, Other Other Surgeries: Yes: , Hysterectomy-Partial, Other. No: Pacemaker Amputation: No Fractures: No - *
== END ==
PROVIDERS: Visit Provider Clinical Nurse Specialist Family Health
DX: M47.896 Other spondylosis, lumbar region (principal); M54.16 Radiculopathy, lumbar region
CPT/HCPCS: 99202; G0463

== ENCOUNTER → 2021-08-10 11:18 | Outpatient (POV) | payer OTHER, SELFPAY ==
[2021-08-10 11:29] VITALS: BP 140/82; PULSE 81; RESP 18; O2SAT 97; BMI 33.4
--- NOTE | 2021-08-10 12:10 | HMH.PAINSOAP ---
[facility] Pain Management SOAP Note Subjective:: Patient is a 45-year-old white female who presents today for follow-up. The patient is being seen in our clinic for chronic low back pain with radiation into her left lower extremity. She does have a referral for neurosurgery on September 25. She has tried injective therapy in our clinic and got no relief. Patient did have surgery with Dr. Dalton in September 2020 for herniated disc for which she only got short-term relief. The pain did return to the left low back area and left lower extremity. She has had 6 weeks of physical therapy which improved her left hip pain, however she is now having pain on the right side. She has had imaging of her lumbar spine on 06/26/2020 which showed severe stenosis. The patient has not gotten any significant relief from injective therapy or physical therapy for more than 6 weeks. She continues with home stretching and ice and heat therapies as well as oral medications. She is awaiting a follow-up visit with Dr. Dalton. We did discuss possible intrathecal therapy versus spinal cord stimulation, but she has deferred at this time. Patient does rate her pain a 3 out of 10 today. Review of Systems General: No recent weight changes, no fever, no sleep disturbances Respiratory: No cough, no shortness of air, no recurring pulmonary infections Cardiovascular/peripheral vascular: No chest pain, no palpitations, no edema, no shortness of breath Gastrointestinal: No new onset incontinence, normal bowel movements reported Genitourinary: No new onset incontinence Musculoskeletal: Low back pain with radiation into bilateral lower extremities (previously left side only) Psychiatric: [Normal mood/affect] Neurological: [Denies weakness in extremities], [denies balance issues] Objective:: Physical exam General: Alert and oriented x3, no acute distress, pleasant and cooperative Lungs: Respirations even and unlabored, symmetrical chest expansion Eyes: PERRL Musculoskeletal: Flexion and extension of lumbar [spine] somewhat guarded secondary to pain, [antalgic gait noted] Neurological: Speech clear, no gross sensory deficit Assessment:: Degenerative disc disease lumbar spine with lumbar radiculopathy symptoms, spinal stenosis Plan:: Patient is a 45-year-old white female who is following up after scheduled neurosurgical evaluation. Patient is awaiting a return visit with Dr. Dalton for September 25. Patient has pain in her low back that initially started on the left side. She is now having pain worsening to the right side. She has been treated for herniated disc with surgical intervention with Dr. Dalton in September 2020. She did come to our clinic for injective therapy. Unfortunately, the patient did not get any significant relief with injective therapy. She did not get any relief with physical therapy or with oral medications?anti-inflammatories. We will order the patient tramadol 50 mg 1 tablet p.o. 3 times daily until she is able to see Dr. Dalton. She has taken [place] in the past but this is caused severe drowsiness. We will see her back after her visit with Dr. Dalton for reevaluation of symptoms and discuss further plan of care. At this time, the patient has deferred on intrathecal therapy and spinal cord stimulation. Risks and benefits of the medication have been explained in detail to the patient. The patient does understand the risk of dependence on the medication when given over a prolonged period. Patient has been advised of risks of oversedation with the prescribed medication. Narcan has been offered to the paitent in the event of oversedation. Patient has been advised that a family member should also be educated regarding administration of Narcan. The patient has been advised to consult with his/her primary care provider and pharmacist regarding drug-drug interaction of medications currently prescribed. Patient has been prescribed a controlled yoo
== END ==
PROVIDERS: Visit Provider Clinical Nurse Specialist Family Health
DX: M51.16 Intervertebral disc disorders with radiculopathy, lumbar region (principal); M48.00 Spinal stenosis, site unspecified
CPT/HCPCS: 99212; G0463

== ENCOUNTER → 2021-08-25 18:57 | Outpatient (CLI) | payer OTHER, SELFPAY | PROVIDERS: Visit Provider Nurse Practitioner Family | DX: Z20.822 Contact with and (suspected) exposure to COVID-19 (principal); J02.9 Acute pharyngitis, unspecified | CPT/HCPCS: C9803; U0003; U0005 ==

== ENCOUNTER 2021-08-31 09:07 | Emergency (ER) | payer OTHER, SELFPAY ==
[2021-08-31 09:10] VITALS: BP 129/88; PULSE 94; RESP 19; TEMP 37.2; O2SAT 98; BMI 33.4
--- NOTE | 2021-08-31 09:59 | HMH.EDUTC ---
[facility] [place] Disposition Clinical Impression: Sinusitis Qualifiers: Sinusitis location: unspecified location Chronicity: unspecified Qualified Code(s): J32.9 - Chronic sinusitis, unspecified Disposition: Home, Self-Care Condition on Discharge: Good Instructions: Sinusitis, DI for Sinusitis, Prednisone Additional Instructions: *Monitor Temp, Over the counter Motrin or Tylenol as directed/as needed Tylenol every 4 hours and Motrin every 6 hours (as long as your family doctor has told you that you can take it) for fever or pain. and straight to ER if unable to lower temp less than 101.0 after medication given *Warm salt water gargles may help to soothe the throat *Throat Lozenges *Warm fluids like tea with honey may help to soothe the throat *Sleep elevated *Humidifier/Vaporizer *Flonase 2 sprays in each nostril daily but be aware that it may take 2-3 days before you notice improvement Take your medication as prescribed Follow up with your Family Doctor if no improvement Follow up IMMEDIATELY for new or worsening symptoms or no Noticeable improvement over the next 48-72 hours. 911 for difficulty breathing or swallowing Prescriptions: Amoxicillin/Potassium Clav [Augmentin 875-125 Tablet] 1 tab PO Q12H 7 Days #14 tab Transmission Status: Received by [facility] predniSONE [Deltasone 10mg tablet] 10 mg PO BID 5 Days #10 tab Transmission Status: Received by [facility] Referrals: Janet Chapman PA [Primary Care Provider] - As needed Time of Disposition: 10:07 Medical Decision Making - Wali Inquiry Pt receiving controlled substance: No Wali was queried for this patient: No Vital Signs: 08/31/21 09:10 08/31/21 10:07 Temperature 98.9 F 98.9 F Temperature Source Oral Pulse Rate 94 H Pulse Rate [Right Brachial] 94 H Respiratory Rate 19 19 Blood Pressure 129/88 Blood Pressure [Right Arm] 129/88 Blood Pressure Mean [Right Arm] 101 Blood Pressure Source [Right Arm] Automatic Cuff Blood Pressure Position [Right Arm] Sitting 02 Sat by Pulse Oximetry 98 Oxygen Delivery Method Room Air [facility] [place] HPI - General Stated complaint: sore throat, cough, runny nose, congestion Time Seen by Provider: 08/31/21 09:59 Mode of Arrival: Ambulatory Source of Information: Patient Limitations: No Limitations Description of Symptoms (Recalled from Triage Doc. by RN): PATIENT C/O COUGH AND CONGESTION X 1 WEEK HEENT Symptoms (Recalled from RN notes): Yes Resp Symptoms (Recalled from RN notes): Yes Skin Symptoms (Recalled from RN notes): No MS Symptoms (Recalled from RN notes): No Functional Status (Recalled from RN notes): WNL - History of Present Illness Provider Complaint: Patient states that she has been having sinus pain and congestion for over a week with cough States that she gets a sinus infection about this time every year and has trouble getting it clear up States that drainage was clear but now is yellowish green and States that she is starting to have the pressure like feeling behind her eyes States that she was seen around the first aug and was given tessalone perrles for her cough but it has continued to get worse - Related Data Home Medications Medication Instructions Recorded Confirmed Atorvastatin Calcium [Lipitor 20mg 20 mg PO DAILY 08/31/21 08/31/21 Tab] Cariprazine HCl [Vraylar] 1.5 mg PO DAILY 08/31/21 08/31/21 Citalopram Hydrobromide [Celexa] 20 mg PO DAILY 08/31/21 08/31/21 Escitalopram Oxalate 10 mg PO DAILY 08/31/21 08/31/21 lisinopriL [Lisinopril] 10 mg PO DAILY 08/31/21 08/31/21 Previous Rx's Medication Instructions Recorded Amoxicillin/Potassium Clav 1 tab PO Q12H 7 Days #14 tab 08/31/21 [Augmentin 875-125 Tablet] predniSONE [Deltasone 10mg tablet] 10 mg PO BID 5 Days #10 tab 08/31/21 Allergies Allergy/AdvReac Type Severity Reaction Status Date / Time metformin AdvReac fatigue Verified 08/25/21 11:38 - Worker's Comp Is this a Worker's Comp case
[2021-08-31 10:07] VITALS: BP 129/88; PULSE 94; RESP 19; TEMP 37.2; O2SAT 98
== END 2021-08-31 10:14 | disposition home or self-care (01) ==
PROVIDERS: Emergency Provider Nurse Practitioner; PCP Physician Assistant
DX: J32.9 Chronic sinusitis, unspecified (principal); F41.8 Other specified anxiety disorders; E78.5 Hyperlipidemia, unspecified; I10 Essential (primary) hypertension; F17.210 Nicotine dependence, cigarettes, uncomplicated
CPT/HCPCS: 99202; G0463

== ENCOUNTER 2021-10-24 09:33 | Emergency (ER) | payer OTHER, SELFPAY ==
[2021-10-24 09:49] VITALS: BP 135/74; PULSE 91; RESP 20; TEMP 36.8; O2SAT 98; BMI 34.9
--- NOTE | 2021-10-24 10:32 | HMH.EDUTC ---
[facility] Disposition Clinical Impression: Sinusitis Qualifiers: Sinusitis location: unspecified location Chronicity: acute Recurrence: non-recurrent Qualified Code(s): J01.90 - Acute sinusitis, unspecified Disposition: Home, Self-Care Condition on Discharge: Good Instructions: Sinusitis, DI for Sinusitis Additional Instructions: Drink plenty of fluids. Take tylenol or ibuprofen for pain or fever. Take the medications as directed. Follow up with your regular doctor. GO TO THE ER FOR ANY WORSENING SYMPTOMS Quarantine until you know the results of your covid-19 test. If it is positive, the health department should call you and give you further instructions about your length of Quarantine and other things. Notify your school or workplace of your results and follow their instructions regarding return to work/school. Prescriptions: Benzonatate [Benzonatate 100mg cap] 100 mg PO TIDP PRN #30 cap PRN Reason: Cough Transmission Status: Pending to [facility] methylPREDNISolone [Medrol] 4 mg PO DIRECTED 6 Days #21 packet Transmission Status: Pending to [facility] guaiFENesin [Mucinex 600mg tablet] 1 - 2 tab PO BIDP PRN #30 tab PRN Reason: Congestion Transmission Status: Pending to [facility] Azithromycin [Z-Sanjay 250mg Tab*] 250 mg PO UD DOSE PK #6 tab Transmission Status: Pending to [facility] Referrals: Janet Chapman PA [Primary Care Provider] - Time of Disposition: 10:39 Medical Decision Making - Medical Records Medical records reviewed: No: I reviewed the patient's medical records. - Wali Inquiry Pt receiving controlled substance: No Vital Signs: 10/24/21 09:49 Temperature 98.3 F Temperature Source Oral Pulse Rate [Right] 91 H Respiratory Rate 20 Blood Pressure [Right Arm] 135/74 Blood Pressure Mean [Right Arm] 94 02 Sat by Pulse Oximetry 98 - Lab Data Lab results reviewed: Yes: I reviewed the patient's lab results. Orders (Tests/Meds): ORDERS Category Date Time Status Covid-19 Nasal PCR ([facility]) Routine Lab 10/24/21 10:15 Received [facility] HPI - General Stated complaint: sore throat,SOA, headache Time Seen by Provider: 10/24/21 09:45 Mode of Arrival: Ambulatory Source of Information: Patient Limitations: No Limitations Description of Symptoms (Recalled from Triage Doc. by RN): pt c/o L ear ache and facial pain/pressure. HEENT Symptoms (Recalled from RN notes): Yes (L ear ache and facial pain) Resp Symptoms (Recalled from RN notes): No Skin Symptoms (Recalled from RN notes): No MS Symptoms (Recalled from RN notes): No Functional Status (Recalled from RN notes): wnl - History of Present Illness Provider Complaint: She has had sinus congestion and sinus pressure for the past 3 days. She denies any fever or chills. She has not been vaccinated against covid-19. She has not had a flu shot. - Related Data Home Medications Medication Instructions Recorded Confirmed Atorvastatin Calcium [Lipitor 20mg 20 mg PO DAILY 08/31/21 10/21/21 Tab] Citalopram Hydrobromide [Celexa] 20 mg PO DAILY 08/31/21 10/21/21 Escitalopram Oxalate 10 mg PO DAILY 08/31/21 10/21/21 lisinopriL [Lisinopril] 10 mg PO DAILY 08/31/21 10/21/21 Previous Rx's Medication Instructions Recorded cariprazine 1.5 mg capsule See Rx Instructions .ROUTE 09/24/21 .COMPLEX #90 cap celecoxib 200 mg capsule 400 mg PO DAILY #60 cap 10/09/21 prednisone 20 mg tablet 20 mg PO BID 5 Days #10 tab 10/21/21 Azithromycin [Z-Sanjay 250mg Tab*] 250 mg PO UD DOSE PK #6 tab 10/24/21 Benzonatate [Benzonatate 100mg 100 mg PO TIDP PRN #30 cap 10/24/21 cap] guaiFENesin [Mucinex 600mg tablet] 1 - 2 tab PO BIDP PRN #30 tab 10/24/21 methylPREDNISolone [Medrol] 4 mg PO DIRECTED 6 Days #21 10/24/21 packet Allergies Allergy/AdvReac Type Severity Reaction Status Date / Time metformin AdvReac fatigue Verified 10/21/21 10:31 - Worker's Comp Is this a Worker's C
[2021-10-24 10:42] VITALS: BP 135/74; PULSE 91; RESP 16; TEMP -6.6; TEMP 20
== END 2021-10-24 10:58 | disposition home or self-care (01) ==
PROVIDERS: Emergency Provider Nurse Practitioner Family; PCP Physician Assistant
DX: J01.90 Acute sinusitis, unspecified (principal); F41.8 Other specified anxiety disorders; E78.5 Hyperlipidemia, unspecified; I10 Essential (primary) hypertension; F17.210 Nicotine dependence, cigarettes, uncomplicated
CPT/HCPCS: 99202; C9803; G0463; U0003; U0005

== ENCOUNTER → 2021-11-19 12:10 | Outpatient (CLI) | payer OTHER, SELFPAY ==
[2021-11-20 11:13] LABS: Covid-19 Nasal PCR Sendout Lex POSITIVE
== END ==
PROVIDERS: Visit Provider Nurse Practitioner
DX: U07.1 COVID-19 (principal)
CPT/HCPCS: C9803; U0004; U0005

== ENCOUNTER → 2021-11-30 08:25 | Outpatient (POV) | payer OTHER, SELFPAY ==
[2021-11-30 08:38] VITALS: BP 162/88; PULSE 85; RESP 18; O2SAT 97; BMI 39.5
--- NOTE | 2021-11-30 10:42 | HMH.PAINSOAP ---
[facility] Pain Management SOAP Note Subjective:: Patient is a 46-year-old white female who presents today for follow-up. Patient was seen on 08/10/2021. She was scheduled at that time to see Dr. Dalton for further follow-up. Patient says she did see Dr. Dalton who did not recommend any further treatment from his standpoint. He does not feel she is a surgical candidate. We do treat the patient for chronic low back pain with radiation into bilateral lateral lower extremities, worse to the left lower extremity. She does have a history of herniated disc in the past. She says that she did see a posting on the [employer] website advertising for Vertiflex. She is interested in this device. Patient's pain is made worse with movement of moving forward and extension twisting at waist. Today, she rates her pain a 6 out of 10. She does have imaging that does show significant arthropathy?facet. Review of Systems General: No recent weight changes, no fever, no sleep disturbances Respiratory: No cough, no shortness of air, no recurring pulmonary infections Cardiovascular/peripheral vascular: No chest pain, no palpitations, no edema, no shortness of breath Gastrointestinal: No new onset incontinence, normal bowel movements reported Genitourinary: No new onset incontinence Musculoskeletal: Low back pain lower extremity pain Psychiatric: [Normal mood/affect] Neurological: [Denies weakness in extremities], [denies balance issues] Objective:: Physical exam General: Alert and oriented x3, no acute distress, pleasant and cooperative Lungs: Respirations even and unlabored, symmetrical chest expansion Eyes: PERRL Musculoskeletal: Flexion and extension of lumbar [spine] somewhat guarded secondary to pain, [antalgic gait noted], positive Kemps test Neurological: Speech clear, no gross sensory deficit Assessment:: Degenerative disc disease lumbar spine with lumbar facet arthropathy and lumbar spondylosis, spinal stenosis Plan:: Patient is interested in Vertiflex. She is having pain with bending forward and turning and twisting at waist at this time. She has a positive Kemps test. She has tried physical therapy for more than 6 weeks and has tried epidurals in the past. We will schedule her for a medial branch block/facet joint injection L3-L4 L4-L5. She does have facet arthropathy per her MRI report and does have notable stenosis as well. We will schedule her, however, for the medial branch blocks bilaterally. We will send her for an x-ray to see if she is a candidate for Vertiflex, given the medial branch blocks do not give her relief. She is not on any anticoagulation therapy and is not diabetic. Possible side effects of corticosteroids have been discussed with the patient. Risks and benefits of the procedure have been explained to the patient. Patient would like to proceed with the procedure. Patient has been instructed to contact the clinic with any concerns before the next appointment. Dr. Buenrostro has reviewed this note and agrees with this plan of care. This note was dictated using voice recognition software and make contain errors or omissions. [facility] History I have reviewed the patient's past medical history: Yes Medical History: Reports:: Anxiety, Depression, Hyperlipidemia, Hypertension Denies:: Cancer, Diabetes Mellitus Type 1, Diabetes Mellitus Type 2, Internal Pacemaker, MRSA, Seizures *Have you ever received a pneumonia vaccine?: No *Have you received a flu vaccine this season?: Yes Other Medical History: Reports: Arthritis, Fibromyalgia, Sinus Problems. Denies: Blood Transfusion Reaction Laterality Cases: Right: Carpal Tunnel Release, Other Other Surgeries: Yes: , Hysterectomy-Partial, Other. No: Pacemaker Amputation: No Fractures: No - *Social History Smoking Status: Current every day smoker Tobacco Type: cigarettes # Packs/Day (cigarettes): 1 Alcohol Intake: never Alcohol Intake Frequency:: ho
== END ==
PROVIDERS: Visit Provider Clinical Nurse Specialist Family Health
DX: M51.36 Other intervertebral disc degeneration, lumbar region (principal); M54.06 Panniculitis affecting regions of neck and back, lumbar region; M47.816 Spondylosis without myelopathy or radiculopathy, lumbar region; M48.00 Spinal stenosis, site unspecified
CPT/HCPCS: 99212; G0463

== ENCOUNTER → 2021-12-01 09:16 | Outpatient (CLI) | payer OTHER, SELFPAY ==
--- NOTE | 2021-12-01 09:29 | XR_ITS ---
FINAL REPORT CLINICAL HISTORY: LOW BACK PAIN FINDINGS: LUMBAR SPINE SERIES Eight views demonstrate no fracture. Mild and moderate degenerative changes are present, worst at L5-S1. Vascular calcification is noted. There is no abnormal movement with bending views. IMPRESSION: Degenerative changes as above. Reviewed, Interpreted and Dictated by Edgard Valenzuela III, MD Transcribed by Ivy Montgomery Authenticated by Edgard Valenzuela III, MD on 12/01/2021 11:32:45 AM [facility]
--- NOTE | 2021-12-01 09:46 | XR_ITS ---
FINAL REPORT CLINICAL HISTORY: rt foot pain FINDINGS: RIGHT FOOT Three views demonstrate no acute fracture or dislocation. There is a small plantar calcaneal spur. Mild degenerative changes are present. No soft tissue abnormality is seen. IMPRESSION: No acute bony abnormality. Reviewed, Interpreted and Dictated by Edgard Valenzuela III, MD Transcribed by Ivy Montgomery Authenticated by Edgard Valenzuela III, MD on 12/01/2021 11:32:52 AM [facility]
== END ==
PROVIDERS: PCP Physician Assistant; Referring Provider Clinical Nurse Specialist Family Health; Visit Provider Orthopaedic Surgery
DX: M79.671 Pain in right foot (principal); M54.50 Low back pain, unspecified
CPT/HCPCS: 72114; 73630

== ENCOUNTER 2021-12-18 10:39 | Day surgery (SDC) | payer OTHER, SELFPAY ==
[2021-12-18 10:51] VITALS: BP 162/78; PULSE 88; RESP 18; TEMP 36.5; O2SAT 99; BMI 32.6
[2021-12-18 11:24] VITALS: BP 160/79; PULSE 78; RESP 18; O2SAT 97
[2021-12-18 11:25] VITALS: BP 158/72; PULSE 81; RESP 18; O2SAT 97
[2021-12-18 11:39] VITALS: BP 145/65; PULSE 81; RESP 20; O2SAT 98
--- NOTE | 2021-12-18 12:02 | HMH.PMPROC ---
- Procedure Date: 12/18/21 Time: 12:03 Anesthesiologist:: Prema Gomez MD Complications:: None Pre-procedure Diagnosis:: Degenerative disease of lumbar spine with lumbar facet arthropathy and spondylosis Post-procedure Diagnosis:: Same Indications for Procedure:: Patient is a very pleasant 46-year-old white female who presents today with chronic low back pain related to the above diagnosis. She has tried and failed conservative treatment including oral pain medications and home stretching program for greater than 6 weeks. She has previously undergone a lumbar epidural steroid injection but she states that she had very minimal pain relief with that injection. Her pain she states is worse with moving forward and extension as well as twisting at the waist. She has previously been evaluated by Dr. Dalton commended against any acute surgical interventions at this time. For today is for the patient to undergo diagnostic lumbar facet joint/medial branch block injections at L3-L4 and L4-L5 bilaterally #1. Procedure Details:: Lumbar medial branch block Informed consent was obtained and the risks and benefits of the procedure was explained to the patient. The back was prepped using ChloraPrep. The skin and subcutaneous tissues were anesthetized using lidocaine. I placed 22-gauge spinal needles into the facet joint/medial branches of L3-L4, L4-L5 bilaterally. Needle placement was confirmed with dye. After this we injected 3 mL bupivacaine 0.25% and Depo-Medrol 13 mg into each facet joint/medial branch of L3-L4, L4-L5 bilaterally. We used a total of 80 mg Depo-Medrol for all 2 levels bilaterally. The patient tolerated the procedure well with no complications. Plan and Disposition:: Follow-up with this patient in 2 weeks. Will reevaluate pain symptoms at that time.
== END 2021-12-18 11:40 | disposition home or self-care (01) ==
LOC: SC.PAINP 10:41
PROVIDERS: PCP Physician Assistant; Visit Provider Anesthesiology Pain Medicine
DX: M51.36 Other intervertebral disc degeneration, lumbar region (principal); M54.06 Panniculitis affecting regions of neck and back, lumbar region; M47.816 Spondylosis without myelopathy or radiculopathy, lumbar region
CPT/HCPCS: 64493; 64494; J1040; Q9966

== ENCOUNTER → 2021-12-25 08:39 | Outpatient (CLI) | payer OTHER, SELFPAY ==
--- NOTE | 2021-12-25 08:44 | MR_ITS ---
FINAL REPORT CLINICAL HISTORY: S/P LUMBAR MICRODISCECTOMY, RT LEG PAIN, DDD LUMBAR COMPARISON: 03/12/2021 FINDINGS: Multiplanar MR imaging of the lumbar spine was performed without and with contrast. On the sagittal T2-weighted images, disc degeneration is seen at several levels. There are endplate changes at L5-S1. The vertebral alignment is normal. There is no evidence of fracture. The conus is seen at approximately the L1 level and has an unremarkable appearance. L1-2: No significant canal stenosis or neuroforaminal narrowing is seen. L2-3: An annular bulge is present. There is mild bilateral neural foraminal narrowing. L3-4: An annular bulge is present. There is a right posterolateral disc protrusion with moderate right and mild left neural foraminal narrowing. L4-5: An annular bulge is present. Facet arthropathy is present with mild bilateral neural foraminal narrowing. L5-S1: An annular bulge is present. Facet arthropathy and osteophytes are present. There are postoperative changes on the right with moderate bilateral neural foraminal narrowing. There is small contrast enhancement anterior to the thecal sac consistent with postoperative change. Note is made of mild spurring of the sacroiliac joints. IMPRESSION: Multilevel mild degenerative disc disease and spondylosis with areas of neural foraminal narrowing as described. Right posterolateral disc protrusion at L3-4 with moderate right neural foraminal narrowing. Reviewed, Interpreted and Dictated by Edgard Valenzuela III, MD Transcribed by Ivy Montgomery Authenticated by Edgard Valenzuela III, MD on 12/25/2021 11:05:16 AM [facility]
== END ==
PROVIDERS: PCP Physician Assistant; Visit Provider Physician Assistant Medical
DX: M51.36 Other intervertebral disc degeneration, lumbar region (principal); M79.604 Pain in right leg; Z98.890 Other specified postprocedural states
CPT/HCPCS: 72158; 76376; A9576

== ENCOUNTER → 2022-01-07 08:16 | Outpatient (POV) | payer OTHER, SELFPAY ==
[2022-01-07 08:26] VITALS: BP 139/87; PULSE 85; RESP 20; TEMP 36.4; O2SAT 100; BMI 32.6
--- NOTE | 2022-01-07 08:49 | HMH.PAINSOAP ---
[facility] Pain Management SOAP Note Subjective:: Patient is a pleasant 38-year-old female who presents today for follow-up after a medial branch block at L3-L4 and L4-L5 bilaterally on December 18, 2021. After the procedure, patient had 0% relief even for a day. She rates her pain as 0/10. She denies any issues after the injection. Patient's MRI does show facet arthropathy causing moderate right and mild left neuroforaminal narrowing at L3-L4 and L4-L5. Pain management, she is taking ibuprofen. She has previously been evaluated by Dr. Dalton who says that she is not a surgical candidate at the moment. [facility] #[id number] with an active morphine equivalent of 0. General: No recent weight changes, no fever, no sleep disturbances Respiratory: No cough, no shortness of air, no recurring pulmonary infections Cardiovascular/peripheral vascular: No chest pain, no palpitations, no edema, no shortness of breath Gastrointestinal: No new onset incontinence, normal bowel movements reported Genitourinary: No new onset incontinence Musculoskeletal: Low back pain Psychiatric: [Normal mood/affect] Neurological: [Denies weakness in extremities], [denies balance issues] Objective:: General: Alert and oriented x3, no acute distress, pleasant and cooperative, [on room air] Lungs: Respirations even and unlabored, symmetrical chest expansion Eyes: PERRL Musculoskeletal: Flexion and extension of lumbar [spine] somewhat guarded secondary to pain, [antalgic gait noted] Neurological: Speech clear, no gross sensory deficit Assessment:: 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 On the sagittal T2-weighted images, disc degeneration is seen at several levels. There are endplate changes at L5-S1. The vertebral alignment is normal. There is no evidence of fracture. The conus is seen at approximately the L1 level and has an unremarkable appearance. L1-2: No significant canal stenosis or neuroforaminal narrowing is seen. L2-3: An annular bulge is present. There is mild bilateral neural foraminal narrowing. L3-4: An annular bulge is present. There is a right posterolateral disc protrusion with moderate right and mild left neural foraminal narrowing. L4-5: An annular bulge is present. Facet arthropathy is present with mild bilateral neural foraminal narrowing. L5-S1: An annular bulge is present. Facet arthropathy and osteophytes are present. There are postoperative changes on the right with moderate bilateral neural foraminal narrowing. There is small contrast enhancement anterior to the thecal sac consistent with postoperative change. Note is made of mild spurring of the sacroiliac joints. IMPRESSION: Multilevel mild degenerative disc disease and spondylosis with areas of neural foraminal narrowing as described. Right posterolateral disc protrusion at L3-4 with moderate right neural foraminal narrowing. Reviewed, Interpreted and Dictated by Edgard Valenzuela III, MD Transcribed by Ivy Montgomery Authenticated by Edgard Valenzuela III, MD on 12/25/2021 11:05:16 AM [facility] Patient has tried and failed conservative therapies such as oral medication, physical therapy, and at home exercise for greater than 6 weeks. We will schedule the patient for a lumbar epidural steroid injection #1. Risk and benefits of this procedure has been discussed with the patient. Patient would like to proceed with the procedure. Patient is not on any blood thinners. Jessica
== END ==
PROVIDERS: Visit Provider Student in an Organized Health Care Education/Training Program
DX: M51.16 Intervertebral disc disorders with radiculopathy, lumbar region (principal); M54.06 Panniculitis affecting regions of neck and back, lumbar region; M47.896 Other spondylosis, lumbar region
CPT/HCPCS: 99212; G0463

== ENCOUNTER → 2022-02-01 08:32 | Outpatient (CLI) | payer OTHER, SELFPAY | PROVIDERS: Visit Provider Nurse Practitioner Family | DX: Z01.812 Encounter for preprocedural laboratory examination (principal); Z11.52 Encounter for screening for COVID-19 | CPT/HCPCS: C9803; U0003; U0005 ==

== ENCOUNTER → 2022-03-15 08:57 | Outpatient (CLI) | payer OTHER, SELFPAY ==
[2022-03-15 09:03] LABS: Microscopic, Urine URINE MICROSCOPIC (MICROSCOPIC)
[2022-03-15 09:31] LABS: Basophils # 0.4 K/mm3 (0-0.2); Basophils % 2.4 % (0.1-2.0); Eosinophils # 0.1 K/mm3 (0.0-0.4); Eosinophils % 0.4 % (0.1-12.0); Hematocrit 46.5 % (37.0-47.0); Hemoglobin 15.4 g/dL (12.2-16.2); Lymphocytes # 4.7 K/mm3 (0.7-4.5); Lymphocytes % 26.9 % (10-50); Mean Corpuscular HGB Conc 33.1 g/dL (31.8-35.4); Mean Corpuscular Hemoglobin 31.2 pg (27.0-31.2); Mean Corpuscular Volume 94.3 fl (81-99); Mean Platelet Volume 8.3 fl (7.4-10.4); Monocytes # 0.7 K/mm3 (0.1-1.0); Monocytes % 4.2 % (1.7-9.3); Neutrophils # 11.5 K/mm3 (1.8-7.8); Neutrophils % 66.1 % (37.0-80.0); Platelet Count 422 K/mm3 (142-424); Red Blood Count 4.93 M/mm3 (4.20-5.40); Red Cell Distribution Width 12.9 % (11.5-17.5); White Blood Count 17.4 K/mm3 (4.8-10.8)
[2022-03-15 09:35] LABS: MANUAL DIFFERENTIAL MANUAL DIFFERENTIAL (MANUAL DIFF)
[2022-03-15 09:41] LABS: INR 0.99 (0.9-1.1); Prothrombin Time 11.2 seconds (10.1-12.5)
[2022-03-15 09:45] LABS: Anion Gap 12.2 mEq/L (5-15); Appearance,Urine CLEAR (Clear); Bilirubin,Urine Negative (Negative); Blood Urea Nitrogen 16 mg/dl (7-17); Blood, Urine Negative (Negative); Calcium 9.8 mg/dl (8.4-10.2); Carbon Dioxide 28 mmol/L (22.0-30.0); Chloride 99 mmol/L (98-107); Color,Urine YELLOW (Yellow); Estimated Glomerular Filt Rate 89 ml/min (>60); GFR (African American) 108 ML/MIN (>60); Glucose 191 mg/dl (74-100); Glucose,Urine (UA) Negative (Negative); Ketones,Urine Negative (Negative); Leukocyte Esterase,Urine Negative (Negative); Nitrate,Urine Negative (Negative); PH,Urine 6.5 (5.0-8.5); Potassium 4.2 mmoL/L (3.5-5.1); Protein,Urine Negative (Negative); Sodium 135 mmol/L (136-145); Specific Gravity, Urine 1.015 (1.005-1.030); Urobilinogen,Urine 0.2 EU/dl (0.2)
[2022-03-15 09:57] LABS: Lymphocytes % 28 % (10-50); Monocytes % 2 % (2-9); Myelocytes % 2 (0-1); Neutrophils % 68 % (42-76); Total Cells Counted 100
[2022-03-15 09:58] LABS: Platelet Estimate Slight Increase; RBC Morphology Normal
[2022-03-15 10:05] LABS: Bacteria,Urine 2+ /lpf; Mucus,Urine 2+ /lpf; Yeast,Urine Occasional /lpf
== END ==
PROVIDERS: Visit Provider Physician Assistant Medical
DX: Z01.818 Encounter for other preprocedural examination (principal); Z20.822 Contact with and (suspected) exposure to COVID-19; M54.16 Radiculopathy, lumbar region
CPT/HCPCS: 36415; 80048; 81001; 85007; 85025; 85610; 87086; C9803; U0003; U0005

== ENCOUNTER → 2022-07-07 17:03 | Outpatient (CLI) | payer OTHER, SELFPAY ==
[2022-07-07 16:38] LABS: Iron 89 ug/dL (37-170)
[2022-07-07 16:40] LABS: Alanine Aminotransferase 88 U/L (12-78); Albumin Level 4.1 g/dl (3.5-5.0); Albumin/Globulin Ratio 1.5 (1.1-1.8); Alkaline Phosphatase 159 U/L (38-126); Anion Gap 12.5 mEq/L (5-15); Aspartate Amino Transferase 70 U/L (14-36); Blood Urea Nitrogen 12 mg/dl (7-17); Calcium 9.3 mg/dl (8.4-10.2); Carbon Dioxide 22 mmol/L (22.0-30.0); Chloride 104 mmol/L (98-107); Chol/HDL Ratio 3.2 (1-3.5); Cholesterol 122 mg/dl (140-200); Estimated Glomerular Filt Rate 89 ml/min (>60); GFR (African American) 108 ML/MIN (>60); Globulin 2.8 g/dL (1.3-3.2); Glucose 170 mg/dl (74-100); HDL Cholesterol 38 mg/dl (40-60); Potassium 4.5 mmoL/L (3.5-5.1); Sodium 134 mmol/L (136-145); Total Protein,Serum 6.9 g/dl (6.3-8.2); Triglycerides 96 mg/dl (30-150); VLDL Cholesterol 19 mg/dL (0-40)
[2022-07-07 16:44] LABS: Bilirubin,Total 0.1 mg/dl (0.2-1.3)
[2022-07-07 16:47] LABS: Total Iron Binding Capacity 318 ug/dL (265-497)
[2022-07-07 16:48] LABS: Basophils # 0.1 K/mm3 (0-0.2); Basophils % 0.9 % (0.1-2.0); Eosinophils # 0.1 K/mm3 (0.0-0.4); Eosinophils % 0.5 % (0.1-12.0); Hematocrit 48.2 % (37.0-47.0); Hemoglobin 15.2 g/dL (12.2-16.2); Lymphocytes # 2.7 K/mm3 (0.7-4.5); Mean Corpuscular HGB Conc 31.6 g/dL (31.8-35.4); Mean Corpuscular Hemoglobin 30.1 pg (27.0-31.2); Mean Corpuscular Volume 95.3 fl (81-99); Mean Platelet Volume 9.6 fl (7.4-10.4); Monocytes # 0.7 K/mm3 (0.1-1.0); Monocytes % 5.9 % (1.7-9.3); Neutrophils # 8.1 K/mm3 (1.8-7.8); Neutrophils % 69.8 % (37.0-80.0); Platelet Count 431 K/mm3 (142-424); Red Blood Count 5.06 M/mm3 (4.20-5.40); Red Cell Distribution Width 12.4 % (11.5-17.5); White Blood Count 11.6 K/mm3 (4.8-10.8)
[2022-07-07 16:51] LABS: Direct LDL Cholesterol 67.66 mg/dL (100-129)
[2022-07-07 17:13] LABS: Thyroid Stimulating Hormone 0.65 uIU/mL (0.465-4.68)
[2022-07-07 17:14] LABS: Ferritin 218 ng/ml (6.24-137)
[2022-07-07 17:32] LABS: Vitamin B12 442 pg/mL (239-931)
[2022-07-07 18:01] LABS: Hemoglobin A1C 7.9 % (4.0-6.0)
== END ==
PROVIDERS: PCP Physician Assistant; Visit Provider Physician Assistant
DX: R29.898 Other symptoms and signs involving the musculoskeletal system (principal); Z79.899 Other long term (current) drug therapy
CPT/HCPCS: 80053; 80061; 82607; 82728; 83036; 83540; 83550; 84443; 85025

== ENCOUNTER → 2022-07-12 08:24 | Outpatient (CLI) | payer OTHER, SELFPAY ==
--- NOTE | 2022-07-12 08:25 | US_ITS ---
FINAL REPORT CLINICAL HISTORY: Elevated LIver Enzymes FINDINGS: ULTRASOUND RIGHT UPPER QUADRANT Sonographic imaging of the right upper quadrant was obtained. The pancreas is partially obscured. The liver has increased echogenicity consistent with fatty infiltration. There is a small amount of sludge in the gallbladder with no evidence of gallstones. There are septations in the gallbladder. There is no gallbladder wall thickening. There is no biliary ductal dilatation. The common duct is normal at 3 mm. Limited images of the right kidney are unremarkable. IMPRESSION: Fatty liver. Small amount of sludge within the gallbladder with no evidence of gallstones. Reviewed, Interpreted and Dictated by Tio Silver MD Transcribed by Dilia Melgar Authenticated and [facility]
== END ==
PROVIDERS: PCP Physician Assistant; Visit Provider Physician Assistant
DX: R74.8 Abnormal levels of other serum enzymes (principal)
CPT/HCPCS: 76705

== ENCOUNTER → 2022-07-12 09:06 | Outpatient (CLI) | payer OTHER, SELFPAY ==
[2022-07-12 10:20] LABS: Erythrocyte Sedimentation Rate 10 mm/hr (0-20)
[2022-07-12 10:24] LABS: Iron 72 ug/dL (37-170)
[2022-07-13 11:34] LABS: RA Latex Turbid. <10.0 IU/mL (<14.0)
[2022-07-13 15:39] LABS: Anti-DNA (DS) Ab Qn <1 IU/mL (0-9)
[2022-07-13 23:13] LABS: Anti-Cyclic Citrullinated Pept 5 units (0-19)
[2022-07-24 17:37] LABS: Antinuclear Antibodies (ANA) Negative; Hep A Ab, IgM Negative; Hepatitis B Core Antibody IgM Negative; Hepatitis B Surface Antigen Negative; Hepatitis C Antibody <0.1
== END ==
PROVIDERS: PCP Physician Assistant; Visit Provider Physician Assistant
DX: Z13.828 Encounter for screening for other musculoskeletal disorder (principal); R29.898 Other symptoms and signs involving the musculoskeletal system; R74.8 Abnormal levels of other serum enzymes
CPT/HCPCS: 36415; 80074; 82525; 83540; 85651; 86038; 86140; 86200; 86225; 86431

== ENCOUNTER → 2022-07-13 08:27 | Outpatient (CLI) | payer OTHER, SELFPAY ==
--- NOTE | 2022-07-13 | US_ITS ---
FINAL REPORT CLINICAL HISTORY: bilateral leg weakness and pain, HTN, HLD, obesity, DM. FINDINGS: ANKLE-BRACHIAL PRESSURE INDICES Pressure indices are as follows: RIGHT LOWER EXTREMITY: Ankle-brachial pressure index: 1.04 Comments: Normal LEFT LOWER EXTREMITY: Ankle-brachial pressure index: 0.95 Comments: Minimally depressed. CONCLUSION: No evidence of significant obstructive peripheral vascular disease of the lower extremities Reviewed, Interpreted and Dictated by Tio Silver MD Transcribed by Dilia Melgar Authenticated and [facility]
== END ==
PROVIDERS: PCP Physician Assistant; Visit Provider Physician Assistant
DX: M79.605 Pain in left leg (principal); M79.604 Pain in right leg; M62.81 Muscle weakness (generalized)
CPT/HCPCS: 93923

== ENCOUNTER 2022-07-15 09:24 | Outpatient (RCR) | payer OTHER, SELFPAY ==
--- NOTE | 2022-07-15 10:02 | HMH.PTOPEV ---
PT Outpatient Evaluation Rehab PT Outpatient Evaluation Start: 07/15/22 09:28 Freq: Status: Active Protocol: Document 07/15/22 09:52 SIDDHARTH (Rec: 07/15/22 10:01 SIDDHARTH [id number]) E-signed By Tim Mendes, PT Outpatient Therapy Subjective History Subjective History Pt is 46 yowf who presents with c/o general lack of endurance, especially with walking. She reports no c/o pain and no feelings of her legs giving out. She had lumbar laminectomy performed ~ 5 mos ago and another one prior to that in September of 2020. She reports she recently was diagnosed with DM-II and has begun to take medication to correct it. She has PMH of depression, fibromyalgia, rheumatic fever, HL, HTN, DDD. Recent KSENIA performed with normal results B (R LE 1.04, L LE 0.95.) She states, If I go to the grocery store in the morning, I just feel tired the rest of the day and I can' t do a whole lot afterwards. Chief Complaint Weakness Symptoms Relieved By Rest/Positioning Symptoms Aggravated By Walking Prior Functional Limitations None Current Functional Limitations Recreation Activity,Walking Symptom Description Activity Dependent Level of pain today (0-10) 0 Pain scale - at its worst (0-10) 0 Hip/Knee Eval Gait Observation General Gait Pattern Observation No Deviations/Normal MMT bilateral Hip Flexion Strength Grade 5 Normal Hip Abduction Strength Grade 5 Normal Hip Adduction Strength Grade 5 Normal Hip Extension Strength Grade 5 Normal Gluteus Saul Strength Grade 5 Normal Hip External Rotation Strength Grade 5 Normal Hip Internal Rotation Strength Grade 5 Normal Knee Extension Strength Grade 5 Normal Knee Flexion Strength Grade 5 Normal Special Tests Hip 90-90 Straight Leg Raise Test Negative Left,Negative Right Sciatic Nerve Tension Test Negative Left,Negative Right Hip Scouring (Quadrant) Test Negative Left,Negative Right Outpatient Therapy Assessment Impairments Problems/Impairmments Impaired Walking,Impaired Self Care/Self Management Prognosis Rehab Potential Innapropriate for Skilled Therapy Comment
== END 2022-07-15 09:30 | disposition home or self-care (01) ==
LOC: PT 09:24
PROVIDERS: PCP Physician Assistant; Visit Provider Physician Assistant
DX: M79.604 Pain in right leg (principal); M79.605 Pain in left leg
CPT/HCPCS: 97163

== ENCOUNTER → 2022-08-05 10:27 | Outpatient (CLI) | payer OTHER, SELFPAY ==
--- NOTE | 2022-08-05 10:39 | MM_ITS ---
PROCEDURE INFORMATION: Exam: MG Bilateral Screening 3D Mammography Exam date and time: 08/05/2022 10:33 AM Age: 46 years old Clinical indication: Screening examination TECHNIQUE: Imaging protocol: Bilateral Screening tomosynthesis and 2D mammography including computer-aided detection (CAD) when performed. COMPARISON: 1. MG MM DIG SCREENING MAMM BI W/CAD 06/02/2020 8:36 AM 2. MG DMSB DIG MAMM-SCREEN EDEN 03/10/2015 8:36 AM 3. BL US BREAST-LT COMPLETE W/AXILLA 03/25/2015 1:27 PM FINDINGS: MAMMOGRAPHY: Breast composition: There are scattered areas of fibroglandular density. Mass: None. Architectural distortion: No new or suspicious architectural distortion. Calcifications: Stable benign-appearing calcifications are present. No new or suspicious cluster of microcalcifications have developed. Asymmetric density: No new or suspicious asymmetric density is present Skin thickening: None. Axillary adenopathy: None. IMPRESSION: No mammographic evidence of malignancy. Recommend annual screening mammography unless otherwise clinically indicated. ASSESSMENT: BI-RADS category 2: Benign
== END ==
PROVIDERS: PCP Physician Assistant; Visit Provider Physician Assistant
DX: Z12.31 Encounter for screening mammogram for malignant neoplasm of breast (principal)
CPT/HCPCS: 77063; 77067

== ENCOUNTER → 2022-11-30 23:00 | Outpatient (CLI) | payer OTHER, SELFPAY ==
[2022-11-30 22:31] LABS: Basophils # 0.1 K/mm3 (0-0.2); Basophils % 0.8 % (0.1-2.0); Eosinophils # 0.2 K/mm3 (0.0-0.4); Hematocrit 45.5 % (37.0-47.0); Hemoglobin 14.5 g/dL (12.2-16.2); Mean Corpuscular HGB Conc 31.9 g/dL (31.8-35.4); Mean Corpuscular Hemoglobin 29.6 pg (27.0-31.2); Mean Platelet Volume 8.7 fl (7.4-10.4); Monocytes # 0.9 K/mm3 (0.1-1.0); Monocytes % 5.7 % (1.7-9.3); Neutrophils # 10.1 K/mm3 (1.8-7.8); Neutrophils % 66.4 % (37.0-80.0); Platelet Count 515 K/mm3 (142-424); Red Cell Distribution Width 12.9 % (11.5-17.5); White Blood Count 15.2 K/mm3 (4.8-10.8)
[2022-11-30 22:36] LABS: MANUAL DIFFERENTIAL MANUAL DIFFERENTIAL (MANUAL DIFF)
[2022-11-30 22:38] LABS: Alanine Aminotransferase 21 U/L (12-78); Albumin Level 4.3 g/dl (3.5-5.0); Albumin/Globulin Ratio 1.4 (1.1-1.8); Alkaline Phosphatase 126 U/L (38-126); Anion Gap 12.9 mEq/L (5-15); Aspartate Amino Transferase 27 U/L (14-36); Bilirubin,Total 0.3 mg/dl (0.2-1.3); Blood Urea Nitrogen 12 mg/dl (7-17); Calcium 9.5 mg/dl (8.4-10.2); Carbon Dioxide 27 mmol/L (22.0-30.0); Chloride 104 mmol/L (98-107); Chol/HDL Ratio 3.1 (1-3.5); Cholesterol 139 mg/dl (140-200); Estimated Glomerular Filt Rate 76 ml/min (>60); GFR (African American) 92 ML/MIN (>60); Globulin 3.1 g/dL (1.3-3.2); Glucose 84 mg/dl (74-100); HDL Cholesterol 45 mg/dl (40-60); Potassium 4.9 mmoL/L (3.5-5.1); Sodium 139 mmol/L (136-145); Total Protein,Serum 7.4 g/dl (6.3-8.2); Triglycerides 88 mg/dl (30-150); VLDL Cholesterol 18 mg/dL (0-40)
[2022-11-30 22:49] LABS: Direct LDL Cholesterol 75.72 mg/dL (100-129)
[2022-11-30 22:54] LABS: 25-OH Vitamin D, Total 33.9 ng/mL (30-100)
[2022-11-30 23:09] LABS: Thyroid Stimulating Hormone 0.43 uIU/mL (0.465-4.68)
[2022-11-30 23:33] LABS: Hemoglobin A1C 7.1 % (4.0-6.0)
[2022-12-01 00:37] LABS: Eosinophils % 2 % (0-3); Lymphocytes % 29 % (10-50); Monocytes % 4 % (2-9); Neutrophils % 65 % (42-76); Platelet Estimate Slight Increase; RBC Morphology Normal; Total Cells Counted 100
[2022-12-04 11:35] LABS: Peripheral Smear Review Scanned Result
== END ==
PROVIDERS: PCP Physician Assistant; Visit Provider Physician Assistant
DX: E11.9 Type 2 diabetes mellitus without complications (principal); E66.3 Overweight; Z68.29 Body mass index [BMI] 29.0-29.9, adult; Z79.899 Other long term (current) drug therapy
CPT/HCPCS: 80053; 80061; 82306; 83036; 84443; 85007; 85025

== ENCOUNTER → 2022-12-28 10:31 | Outpatient (CLI) | payer OTHER, SELFPAY ==
--- NOTE | 2022-12-28 10:34 | XR_ITS ---
FINAL REPORT CLINICAL HISTORY: hand pain 1st metacarpal area FINDINGS: Left hand Three views were obtained. There is no acute fracture or dislocation. There are severe degenerative changes of the 1st carpometacarpal with loose bodies in this region. There is radial subluxation of the 1st metacarpal and 1st carpometacarpal. No soft tissue abnormality is identified. IMPRESSION: Degenerative changes as detailed above. Reviewed, Interpreted and Dictated by Edgard Valenzuela III, MD Transcribed by Ivy Montgomery Authenticated and [facility]
== END ==
PROVIDERS: PCP Physician Assistant; Visit Provider Orthopaedic Surgery
DX: M79.642 Pain in left hand (principal)
CPT/HCPCS: 73130

== ENCOUNTER → 2023-01-06 13:22 | Outpatient (CLI) | payer OTHER, SELFPAY ==
[2023-01-06 13:29] LABS: Microscopic, Urine URINE MICROSCOPIC (MICROSCOPIC)
[2023-01-06 14:25] LABS: Basophils # 0.1 K/mm3 (0-0.2); Eosinophils # 0.2 K/mm3 (0.0-0.4); Eosinophils % 1.1 % (0.1-12.0); Hematocrit 45.4 % (37.0-47.0); Hemoglobin 14.7 g/dL (12.2-16.2); Lymphocytes # 3.9 K/mm3 (0.7-4.5); Lymphocytes % 28.8 % (10-50); Mean Corpuscular HGB Conc 32.3 g/dL (31.8-35.4); Mean Corpuscular Hemoglobin 30.2 pg (27.0-31.2); Mean Corpuscular Volume 93.5 fl (81-99); Mean Platelet Volume 7.7 fl (7.4-10.4); Monocytes # 0.5 K/mm3 (0.1-1.0); Monocytes % 3.4 % (1.7-9.3); Neutrophils # 8.8 K/mm3 (1.8-7.8); Neutrophils % 65.7 % (37.0-80.0); Platelet Count 424 K/mm3 (142-424); Red Blood Count 4.86 M/mm3 (4.20-5.40); Red Cell Distribution Width 13.2 % (11.5-17.5); White Blood Count 13.4 K/mm3 (4.8-10.8)
[2023-01-06 14:55] LABS: Chloride 101 mmol/L (98-107)
[2023-01-06 14:56] LABS: Sodium 136 mmol/L (136-145)
[2023-01-06 14:57] LABS: Iron 63 ug/dL (37-170)
[2023-01-06 14:59] LABS: Alanine Aminotransferase 23 U/L (12-78); Albumin Level 4.5 g/dl (3.5-5.0); Albumin/Globulin Ratio 1.5 (1.1-1.8); Alkaline Phosphatase 114 U/L (38-126); Aspartate Amino Transferase 29 U/L (14-36); Bilirubin,Total 0.4 mg/dl (0.2-1.3); Blood Urea Nitrogen 18 mg/dl (7-17); Carbon Dioxide 25 mmol/L (22.0-30.0); Estimated Glomerular Filt Rate 76 ml/min (>60); GFR (African American) 92 ML/MIN (>60); Globulin 3.1 g/dL (1.3-3.2); Glucose 128 mg/dl (74-100); Total Protein,Serum 7.6 g/dl (6.3-8.2)
[2023-01-06 15:07] LABS: Appearance,Urine CLEAR (Clear); Bilirubin,Urine Negative (Negative); Blood, Urine Negative (Negative); Color,Urine YELLOW (Yellow); Glucose,Urine (UA) Negative (Negative); Ketones,Urine Negative (Negative); Leukocyte Esterase,Urine Negative (Negative); Nitrate,Urine Negative (Negative); PH,Urine 5.5 (5.0-8.5); Protein,Urine Negative (Negative); Specific Gravity, Urine <= 1.005 (1.005-1.030); Urobilinogen,Urine 0.2 EU/dl (0.2)
[2023-01-06 15:07] LABS: Total Iron Binding Capacity 343 ug/dL (265-497)
[2023-01-06 15:13] LABS: Urine Pregnancy, HCG Qual. Negative (Negative)
[2023-01-06 15:33] LABS: Ferritin 124 ng/ml (6.24-137)
[2023-01-06 15:34] LABS: Squamous Epithelial Cell,Urine Occasional #/hpf (0-5)
[2023-01-13 00:07] LABS: Interpretation: Negative (.)
== END ==
PROVIDERS: Internal Medicine Medical Oncology; PCP Physician Assistant; Visit Provider Orthopaedic Surgery
DX: M18.12 Unilateral primary osteoarthritis of first carpometacarpal joint, left hand (principal); Z01.812 Encounter for preprocedural laboratory examination
CPT/HCPCS: 36415; 80053; 81001; 81025; 81206; 81270; 82728; 83540; 83550; 85025; 88184; 88185; 88189

== ENCOUNTER 2023-01-12 11:28 | Day surgery (SDC) | payer OTHER, SELFPAY ==
[2023-01-11 09:54] VITALS: BMI 29.6
[2023-01-12] VITALS (13 sets, daily range): BP systolic 103–148; BP diastolic 57–95; PULSE 83–99; RESP 16–18; TEMP 36.3–43; O2SAT 90–99
[2023-01-12 12:02] LABS: POC Glucose,Bedside 97 (70-110)
--- NOTE | 2023-01-12 13:27 | P.PN_ITS ---
[facility] Disclaimer: The information contained in this section may have been updated after the patient was seen, as this information can be updated by other users. Medical History Asthma Depression Diabetes Fibromyalgia Hand pain, left Herniation of lumbar intervertebral disc with radiculopathy History of rheumatic fever Hyperlipidemia Hypertension Low back pain Lumbar canal stenosis Mouth ulcer Neuroforaminal stenosis of lumbar spine Neuropathy Perioral dermatitis Radicular pain of both lower extremities Urinary incontinence Vitamin D deficiency (~08/19/18) Surgical History H/O lumbar discectomy History of hysterectomy Family History Other No significant family history Social History Smoking Status: Current every day smoker tobacco type: cigarettes packs per day: 1 second hand exposure: Yes alcohol intake: never substance use type: denies use current occupational status: employed Travel in the last 8 weeks: None household members: family housing: house current occupational exposures/hazards: No caffeine: Yes [facility] Anesthesia Checklist Patient Identification Patient Identification: Arm Band Structural Data Admitted From: Home Planned Operative Procedure/s: Left Carpometacarpal Arthroplasty Consent for Planned Operative Procedure(s) Verified: Yes Verified Documents: Surgical Consent and History and Physical NPO Status Verified Time NPO: 00:00 Additional verifications Anesthesia Reactions: No Hx Blood Transfusions: No Blood Transfusion Reaction: No Airway Assessment C-Spine Mobility Assessed: Yes TMJ Mobility Assessed: Yes Dentition: Good Dentition (upper dentures removed) Neurological Assessment Level of Consciousness: Awake and Alert Anesthesia Plan Anesthesia Risk discussed: Yes Anesthesia Plan: Verified ASA Class: II Anesthesia Type: General w/block (Left Supraclavicular Block. Risks/benefits explained. Pt verbalized understanding)
--- NOTE | 2023-01-12 15:44 | XR_ITS ---
FINAL REPORT CLINICAL HISTORY: CMC LEFT HAND USING C-ARM GUIDANCE. FINDINGS: FLUORO TIME PROCEDURE: CMC left hand using C-arm guidance FINDINGS: Fluoroscopy time was provided by the radiology department for the clinical service. Three spot films were obtained. Fluoroscopy exposure time: 1:48 minute IMPRESSION: See above Reviewed, Interpreted and Dictated by Tio Silver MD Transcribed by Dilia Melgar Authenticated and [facility]
--- NOTE | 2023-01-12 16:07 | P.PNANES_ITS ---
[facility] Anesthesia Record Part I Anesthesia Record I Intake, IV Amount: 1,400 Estimated blood loss (mL): 10 Urine output (mL): 0 Blood Pressure: 124/93 SaO2: 92 Pulse Rate: 83 Respiratory Rate: 16 Temperature: 98.5 F Patient is:: Drowsy and Stable Stable to PACU at:: 16:00
--- NOTE | 2023-01-12 16:12 | EXP.OP.NOTE ---
Date of procedure: 01/12/23 Pre-op Diagnosis:: Left first CMC arthritis end-stage Post-op Diagnosis:: Same Procedure performed:: Left wrist trapeziectomy Surgeon:: Bernardino Nevarez DO ASSISTANT PRODUCTION MANAGER:: Satish Baig Anesthesia: GETA Estimated blood loss (mL): 10 Operative findings:: Complete fusion of the first CMC joint with the trapezium bone and first metacarpal with large osteophyte and softening of the metacarpal bone Operative note:: Patient was identified preoperatively. Left wrist marked yes my initials. Transferred operative suite after undergoing a block with anesthesia. Placed upon operating bed with a hand table. Left upper extremity prepped draped normal sterile fashion. Once prepped and draped final operative timeout performed to identify proper patient procedure and extremity. Everyone involved in case agreed. No counter occasion beginning. Did receive preoperative antibiotics. Marking pen was used to make plan incision over the first CMC joint along the dorsal radial aspect of the wrist down to paul the radial styloid. Esmarch was used to exsanguinate extremity pneumatic tourniquet inflated to 250 mmHg. Skin F was used incise through skin careful dissection was taken down to the trapezium bone and the first CMC joint capsulotomy was performed at the first CMC joint there was essentially complete fusion of the first CMC joint with the trapezium. It moved in unison and there is no joint space present. Therefore x-ray was brought in osteotomes were used to divide this joint of the trapezium and the first CMC CMC joint was divided and differentiated with osteotomes and trapeziectomy was performed in a piecemeal fashion. Once trapeziectomy was performed attention was then brought to the base of the first metacarpal guidewire from the Arthrex suspension plasty Was placed through the first metacarpal parallel to the joint and pinned it placed through both cortex of the second metacarpal shaft dissection was taken down over the pin site over the second metacarpal and guidewire was advanced once guidewire was advanced and there is free-flowing of this the CMC tight rope mechanism was loaded and as the guidewire was pushed through the passing suture loop on the guidewire broke and was unable to completely pass the tight rope mechanism of note the first metacarpal bone stock appeared to be osteopenic in nature. I do not feel comfortable reading drilling a another path on the metacarpal close to the previous hole in fear of fracture pathological fracture of the metacarpal so the second pass of the guidewire was aborted. Soft tissue interposition and hematoma of the trapeziectomy site was confirmed capsule was closed with Vicryl sutures skin closed with nylon suture sterile hand dressing placed patient waken from anesthesia taken recovery in stable condition The tight rope mechanism was aborted in order to avoid a second drill on the metacarpal secondary to the osteopenic nature of the bone. Condition: stable Disposition: PACU Complications:: None apparent
[2023-01-12 16:21] LABS: POC Glucose,Bedside 118 (70-110)
[2023-01-13 07:19] VITALS: BP 137/78; PULSE 90; TEMP 36.6
--- NOTE | 2023-01-13 07:19 | EXP.ANES.II ---
[facility] Anesthesia Record Part II Anesthesia Record Part II Discharge Time: 16:44 Destination: Surgical Day Care (OP Surgery) PACU nurse assessment reviewed?: Yes Patient Condition:: Good Anesthesia Complications:: None Swallowing reflex intact?: Yes Cyanosis?: No Blood Pressure: 137/78 Pulse Rate: 90 Temperature: 98 F Mental Status: Alert & Oriented Pain level:: 0 Nausea and/or vomitting:: None Intake, IV Amount: 0
== END 2023-01-12 17:19 | disposition home or self-care (01) ==
PROVIDERS: PCP Physician Assistant; Visit Provider Orthopaedic Surgery
PROC: (CPT 25447; principal; 2023-01-12 13:00)
DX: M18.12 Unilateral primary osteoarthritis of first carpometacarpal joint, left hand (principal); E11.9 Type 2 diabetes mellitus without complications; I10 Essential (primary) hypertension; Z79.01 Long term (current) use of anticoagulants; Z79.899 Other long term (current) drug therapy; F17.210 Nicotine dependence, cigarettes, uncomplicated; Z79.84 Long term (current) use of oral hypoglycemic drugs
CPT/HCPCS: 25447; 73120; 76000; 82962; 94640; 96374; C1713; J2405

== ENCOUNTER → 2023-03-02 12:57 | Outpatient (CLI) | payer OTHER, SELFPAY ==
[2023-03-02 15:26] LABS: Alanine Aminotransferase 18 U/L (12-78); Albumin Level 3.9 g/dl (3.5-5.0); Albumin/Globulin Ratio 1.4 (1.1-1.8); Alkaline Phosphatase 123 U/L (38-126); Aspartate Amino Transferase 23 U/L (14-36); Bilirubin,Total 0.4 mg/dl (0.2-1.3); Blood Urea Nitrogen 11 mg/dl (7-17); Calcium 8.9 mg/dl (8.4-10.2); Carbon Dioxide 23 mmol/L (22.0-30.0); Chloride 100 mmol/L (98-107); Chol/HDL Ratio 2.9 (1-3.5); Cholesterol 143 mg/dl (140-200); Estimated Glomerular Filt Rate 106 ml/min (>60); GFR (African American) 129 ML/MIN (>60); Globulin 2.7 g/dL (1.3-3.2); Glucose 92 mg/dl (74-100); HDL Cholesterol 50 mg/dl (40-60); Sodium 136 mmol/L (136-145); Total Protein,Serum 6.6 g/dl (6.3-8.2); Triglycerides 75 mg/dl (30-150); VLDL Cholesterol 15 mg/dL (0-40)
[2023-03-02 15:37] LABS: Direct LDL Cholesterol 76.16 mg/dL (100-129)
[2023-03-02 15:55] LABS: Basophils % 0.2 % (0.1-2.0); Eosinophils # 0.1 K/mm3 (0.0-0.4); Eosinophils % 0.6 % (0.1-12.0); Hematocrit 44.8 % (37.0-47.0); Hemoglobin 14.1 g/dL (12.2-16.2); Lymphocytes # 2.7 K/mm3 (0.7-4.5); Lymphocytes % 20.3 % (10-50); Mean Corpuscular HGB Conc 31.5 g/dL (31.8-35.4); Mean Corpuscular Volume 95.1 fl (81-99); Mean Platelet Volume 8.8 fl (7.4-10.4); Monocytes # 0.8 K/mm3 (0.1-1.0); Monocytes % 5.8 % (1.7-9.3); Neutrophils # 9.6 K/mm3 (1.8-7.8); Neutrophils % 73.1 % (37.0-80.0); Platelet Count 443 K/mm3 (142-424); Red Blood Count 4.71 M/mm3 (4.20-5.40); Red Cell Distribution Width 13.1 % (11.5-17.5); White Blood Count 13.1 K/mm3 (4.8-10.8)
[2023-03-02 15:56] LABS: Thyroid Stimulating Hormone 0.34 uIU/mL (0.465-4.68)
[2023-03-02 19:27] LABS: Hemoglobin A1C 5.7 % (4.0-6.0)
== END ==
PROVIDERS: PCP Physician Assistant; Visit Provider Physician Assistant
DX: E11.9 Type 2 diabetes mellitus without complications (principal); E55.9 Vitamin D deficiency, unspecified; Z79.84 Long term (current) use of oral hypoglycemic drugs
CPT/HCPCS: 80053; 80061; 82306; 83036; 84443; 85025

== ENCOUNTER → 2023-03-10 10:00 | Outpatient (CLI) | payer OTHER, SELFPAY ==
--- NOTE | 2023-03-10 10:03 | XR_ITS ---
FINAL REPORT CLINICAL HISTORY: left shoulder pain x2 months COMPARISON: None FINDINGS: LEFT SHOULDER Three views demonstrate no acute fracture or dislocation. There is mild AC joint degenerative change.. The visualized bony structures are well aligned. No soft tissue abnormality is seen. IMPRESSION: Degenerative change with no acute bony abnormality. Reviewed, Interpreted and Dictated by Edgard Valenzuela III, MD Transcribed by Cielo Parisi Authenticated and [facility]
== END ==
PROVIDERS: PCP Physician Assistant; Visit Provider Physician Assistant
DX: M25.512 Pain in left shoulder (principal)
CPT/HCPCS: 73030

== ENCOUNTER → 2023-04-01 12:51 | Outpatient (CLI) | payer OTHER, SELFPAY ==
--- NOTE | 2023-04-01 12:52 | MR_ITS ---
FINAL REPORT TECHNIQUE: Multiplanar MR without contrast CLINICAL HISTORY: Left shoulder pain WITH WEAKNESS. NO INJURY OR TRAUMA FINDINGS: Marrow signal: Small subcentimeter lesion in the humeral head, could represent a tiny enchondroma which is nonspecific. There is no evidence of marrow edema. Glenohumeral joint: Small joint effusion. Two or three joint bodies identified. One along the superior labrum measures up to 7 mm. One adjacent to the coracoid process measures 8 mm. There are questionable smaller joint bodies in the inferior axillary recess. There is a 4 mm joint body in the biceps tendon sheath. AC joint: Mild arthropathy. Minimal fluid in the subacromial bursa compatible with bursitis. No evidence of impingement. Rotator cuff: No evidence of tear Labrum: Abnormal signal throughout the superior labrum most compatible with tear. The tear extends into the posterior labrum. There is sublabral foramen versus tear of the upper anterior labrum. Biceps tendon: Tendinosis without evidence of tear. IMPRESSION: Multiple joint bodies measuring up to 8 mm. Extensive tear of the superior and posterior labrum. Reviewed, Interpreted and Dictated by Tracie Toro MD Transcribed by Ivy Montgomery Authenticated and [facility]
== END ==
PROVIDERS: PCP Physician Assistant; Visit Provider Physician Assistant
DX: M25.512 Pain in left shoulder (principal)
CPT/HCPCS: 73221

== ENCOUNTER 2023-05-18 11:00 | Outpatient (RCR) | payer OTHER, SELFPAY ==
--- NOTE | 2023-03-24 08:03 | HMH.OTOPEV ---
OT Inpatient Evaluation Rehab OT Outpatient Eval Start: 03/24/23 07:53 Freq: Status: Active Protocol: Document 03/23/23 03:53 SALAZAR (Rec: 03/24/23 08:03 SALAZAR [id number]) E-signed By Malia Davis, OT Outpatient Therapy Subjective History Subjective History Pt is a 47 year old female who reports to therapy for initial evaluation to left shoulder. Pt explains her left shoulder has become painful and stiff within the last two months. She does not recall a specific injury causing the pain to begin. Recently she has started to have difficulty with upper body dressing and other ADL tasks due to significant pain and stiffness. Pt has had an X-ray of left shoulder with the following findings: Degenerative change with no acute bony abnormality. Pt is right hand dominant. Pt does demonstrate with a slight decrease in AROM and strength at left shoulder. She also tested positive for 3 shoulder impingement special tests of the shoulder. Pt will continue to be seen in order to address all left shoulder deficits. Chief Complaint Pain,Stiff,Weakness Symptom Type Ache,Throb,Sharp,Dull Symptoms Relieved By Rest/Positioning Symptoms Aggravated By Physical Activity,Lifting Prior Functional Limitations None Current Functional Limitations Reaching,Lifting,Housework, Dressing,Sleeping,Recreation Activity Symptom Description Intermittent,Activity Dependent Level of pain today (0-10) 2 Pain scale - at its best (0-10) 0 Pain scale - at its worst (0-10) 8 Shoulder/Elbow Eval Shoulder Objective Measurements Shoulder ROM Left Shoulder Abduction Active Range of 135 degrees Motion (degrees) Shoulder Flexion Active Range of Motion 145 degrees (degrees) Query Text: Shoulder External Rotation Active Range 68 degrees of Motion (degrees) Shoulder Internal Rotation Active Range 68 de
--- NOTE | 2023-04-20 11:45 | HMH.RHREAS ---
Rehab Reassessment Rehab OP Re-assessment Start: 03/24/23 07:53 Freq: Status: Active Protocol: Document 04/20/23 10:58 SALAZAR (Rec: 04/20/23 11:44 SALAZAR [id number]) E-signed By Malia Davis OT Rehab Re-assessment Subjective Subjective We want to avoid surgery. Objective Objective Notes Pt has not been seen for 28 days since initial evaluation. Pt reports she has been waiting on MRI results. Therapist plans to advance pt in to completing L shoulder AROM, AAROM, and strengthening exercises. PROM manual stretching in all planes. And modalities will be provided to decrease pain/inflammation. Assessment Progress Assessment Slower Than Expected Assessment Notes Pt continues to report her worst pain at 8/10. She rates her pain at a 6/10 today at therapy session. Pt's MRI confirmed a labrum tear to left shoulder. The following are the results of MRI: Multiple joint bodies measuring up to 8 mm. Extensive tear of the superior and posterior labrum. Pt's AROM and strength remain the same as what they were at initial evaluation: Carl L shoulder AROM Flex: 145 degrees Abd: 135 degrees ER: 68 degrees IR: 68 degrees Patient goals met No goals have been met at this time Goals Not Met See below Revised Goals ST-5 LT-5 Plan Plan Continue with OT plan of care at this time Frequency of Therapy 2x's a week Duration of therapy 4 more weeks Time and Billing Re-Eval Time 11 Re-Eval Billing Units 1 PHYSICIAN CERTIFICATION: I certify the specified therapy services for Jenny Barr are required, authorized, and reviewed every 30 days.
--- NOTE | 2023-05-18 11:43 | HMH.RHREAS ---
Rehab Reassessment Rehab OP Re-assessment Start: 03/24/23 07:53 Freq: Status: Active Protocol: Document 05/18/23 11:04 SALAZAR (Rec: 05/18/23 11:42 SALAZAR [id number]) E-signed By Maila Davis OT Rehab Re-assessment Subjective Subjective It just wears out really easy . Objective Objective Notes Pt continues to be seen twice a week in order to address left shoulder deficits. Pt engages in L shoulder AROM, AAROM, and strengthening exercises. PROM manual stretching in all planes. And modalities will are provided to decrease pain/inflammation. Assessment Progress Assessment Progressing as Expected Assessment Notes Pt continues to report her worst pain at 8/10. She rates her pain at a 7/10 today at therapy session. Pt returns to the orthopedic surgeon on June 14. At this time her AROM has improved, but she continues to have decreased endurance and pain at left shoulder. Carl L shoulder AROM Flex: 160 degrees Abd: 155 degrees ER: 85 degrees IR: [address], 2, 3, and 5 Goals Not Met See below Revised Goals ST LT-5 Plan Plan Continue with OT plan of care at this time. Frequency of Therapy 2x's a week Duration of therapy 4 more weeks Time and Billing Re-Eval Time 12 Re-Eval Billing Units 1 PHYSICIAN CERTIFICATION: I certify the specified therapy services for Jenny Barr are required, authorized, and reviewed every 30 days.
== END 2023-05-18 11:05 | disposition home or self-care (01) ==
LOC: OT 11:00
PROVIDERS: PCP Physician Assistant; Visit Provider Physician Assistant
DX: M25.512 Pain in left shoulder (principal)
CPT/HCPCS: 97010; 97014; 97110; 97140; 97164; 97166; G0283

== ENCOUNTER → 2023-06-08 08:55 | Outpatient (CLI) | payer OTHER, SELFPAY ==
--- NOTE | 2023-06-08 09:05 | ECG_ITS ---
APPROVED REPORT Exam: Resting ECG HR:70 bpm ECG Measurements Heart Rate 70 AXES NC 164 P 57 QRSd 86 QRS 44 QT 388 T 48 QTc 409 Conclusion SINUS RHYTHM NORMAL ECG UNCONFIRMED REPORT Electronically signed by : Emory Vasquez MD 06/10/2023 08:43:39
--- NOTE | 2023-06-08 09:14 | XR_ITS ---
FINAL REPORT CLINICAL HISTORY: Pre Op, cough, smoker 30 years, asthma, pre op for shoulder sx COMPARISON: 12/30/2020 FINDINGS: Two views of the chest were obtained. The heart size and pulmonary vascularity are within normal limits. The mediastinum is normal. No acute pulmonary abnormality is identified. There is no pneumothorax. The bony thorax is intact. IMPRESSION: No active cardiopulmonary disease. Reviewed, Interpreted and Dictated by Edgard Valenzuela III, MD Transcribed by Cielo Parisi Authenticated and [facility]
[2023-06-08 09:23] LABS: Basophils # 0.1 K/mm3 (0-0.2); Basophils % 0.6 % (0.1-2.0); Eosinophils # 0.2 K/mm3 (0.0-0.4); Eosinophils % 1.4 % (0.1-12.0); Hematocrit 44.6 % (37.0-47.0); Hemoglobin 14.1 g/dL (12.2-16.2); Lymphocytes # 2.4 K/mm3 (0.7-4.5); Lymphocytes % 22.7 % (10-50); Mean Corpuscular HGB Conc 31.7 g/dL (31.8-35.4); Mean Corpuscular Hemoglobin 30.2 pg (27.0-31.2); Mean Corpuscular Volume 95.1 fl (81-99); Mean Platelet Volume 7.1 fl (7.4-10.4); Monocytes # 0.6 K/mm3 (0.1-1.0); Monocytes % 5.3 % (1.7-9.3); Neutrophils # 7.3 K/mm3 (1.8-7.8); Platelet Count 408 K/mm3 (142-424); Red Blood Count 4.69 M/mm3 (4.20-5.40); White Blood Count 10.4 K/mm3 (4.8-10.8)
[2023-06-08 10:26] LABS: Carbon Dioxide 27 mmol/L (22.0-30.0); Chloride 105 mmol/L (98-107); Potassium 4.8 mmoL/L (3.5-5.1); Sodium 138 mmol/L (136-145)
[2023-06-08 10:27] LABS: Alanine Aminotransferase 31 U/L (12-78); Albumin Level 4.2 g/dl (3.5-5.0); Albumin/Globulin Ratio 1.4 (1.1-1.8); Alkaline Phosphatase 102 U/L (38-126); Anion Gap 10.8 mEq/L (5-15); Aspartate Amino Transferase 28 U/L (14-36); Bilirubin,Total 0.3 mg/dl (0.2-1.3); Blood Urea Nitrogen 13 mg/dl (7-17); Calcium 9.3 mg/dl (8.4-10.2); Estimated Glomerular Filt Rate 76 ml/min (>60); GFR (African American) 92 ML/MIN (>60); Globulin 2.9 g/dL (1.3-3.2); Glucose 96 mg/dl (74-100); Total Protein,Serum 7.1 g/dl (6.3-8.2)
== END ==
PROVIDERS: PCP Physician Assistant; Visit Provider Orthopaedic Surgery
DX: S43.432A Superior glenoid labrum lesion of left shoulder, initial encounter (principal); Z01.818 Encounter for other preprocedural examination
CPT/HCPCS: 36415; 71046; 80053; 85025; 93005

== ENCOUNTER 2023-06-13 08:52 | Day surgery (SDC) | payer OTHER, SELFPAY ==
[2023-06-07 15:07] VITALS: BMI 29.6
[2023-06-13] VITALS (12 sets, daily range): BP systolic 89–162; BP diastolic 54–102; PULSE 73–110; RESP 12–20; TEMP 36.1–36.8; O2SAT 81–100
--- NOTE | 2023-06-13 09:18 | EXP.ANES.CKL ---
[facility] Disclaimer: The information contained in this section may have been updated after the patient was seen, as this information can be updated by other users. Medical History Asthma Depression Diabetes Fibromyalgia Hand pain, left Herniation of lumbar intervertebral disc with radiculopathy History of rheumatic fever Hyperlipidemia Hypertension Low back pain Lumbar canal stenosis Mouth ulcer Neuroforaminal stenosis of lumbar spine Neuropathy Perioral dermatitis Radicular pain of both lower extremities Urinary incontinence Vitamin D deficiency (~08/19/18) Surgical History H/O lumbar discectomy History of hysterectomy Family History Other No significant family history Social History Smoking Status: Current every day smoker tobacco type: cigarettes packs per day: 1 second hand exposure: Yes alcohol intake: never substance use type: denies use current occupational status: employed Travel in the last 8 weeks: None household members: family housing: house current occupational exposures/hazards: No caffeine: Yes [facility] Anesthesia Checklist Patient Identification Patient Identification: Arm Band and Verbal (Name & ) Structural Data Admitted From: Home Planned Operative Procedure/s: shoulder scope Consent for Planned Operative Procedure(s) Verified: Yes NPO Status Verified Time NPO: 00:00 Additional verifications Anesthesia Reactions: No Hx Blood Transfusions: No Blood Transfusion Reaction: No Airway Assessment Mallampati Score:: Class I C-Spine Mobility Assessed: Yes TMJ Mobility Assessed: Yes Dentition: Dentures-poor fitting Neurological Assessment Level of Consciousness: Awake Hx Seizures: No Numbness or tingling in extremities: No Anesthesia Plan Anesthesia Risk discussed: Yes Anesthesia Plan: Verified ASA Class: III Anesthesia Type: General w/block
[2023-06-13 09:21] LABS: POC Glucose,Bedside 99 (70-110)
--- NOTE | 2023-06-13 13:01 | EXP.OP.NOTE ---
Date of procedure: 06/13/23 Pre-op Diagnosis:: Left shoulder labral tear Left shoulder biceps tendinitis Left shoulder intra-articular loose bodies Post-op Diagnosis:: Left shoulder SLAP tear Left shoulder partial-thickness biceps tendon tear Left shoulder intra-articular loose bodies Procedure performed:: Left shoulder arthroscopy with SLAP repair Left shoulder arthroscopy with biceps tenolysis Left shoulder arthroscopy with removal intra-articular loose body Surgeon:: Bernardino Nevarez DO DOG POUND ATTENDANT:: Daniel Hernandez Anesthesia: GETA and regional Estimated blood loss (mL): 5 Operative findings:: As above Operative note:: Patient was identified preoperatively. Left shoulder marked with yes my initials. Underwent a block with anesthesia. Then taken to the operating room. Placed upon the operating bed. General anesthesia was administered airway secured. Then placed in a lateral position on the beanbag with all bony prominences well-padded. Left shoulder was then prepped and draped within the arm lai. Once prepped and draped final operative timeout performed to identify proper patient procedure and extremity. Everyone involved the case agreed. No counter indication beginning. Did receive preoperative antibiotics. Marking pen was used to faviola bony landmarks of the shoulder and standard portal sites. Skin knife was used to incise through posterior viewing portal. Blunt with trocar was placed in the glenohumeral joint and exchanged with a camera. I moved just above the anterior aspect of the shoulder and the subscapularis tendon where the anterior working portal was made and switch with a purple cannula. Probe was then placed in the shoulder. There is extensive tearing of the superior aspect of the labrum extending posteriorly behind the biceps anchor. Subscapularis tendon was intact. The undersurface of the rotator cuff was intact and pristine. Cartilage in the shoulder had some softening but otherwise intact. Attention was then made to repair of the superior labrum the footprint of attachment was debrided with the rasp and sucker shaver lasso suture passers were used to pass through the labrum and push lock anchors were placed anterior to the biceps tendon and posterior to the biceps tendon for repair. Biceps was then interrogated midportion of the biceps intra-articular showed significant fraying and more than 50% tearing decision was made for biceps tenolysis at that time. Several intra-articular loose bodies likely from a labrum and biceps were also identified and removed through the sucker shaver. No further pathology was seen and the camera was removed the joint was drained. Skin was closed with nylon stitch sterile dressing placed patient waken anesthesia taken recovery in stable condition. Condition: stable Disposition: PACU Complications:: None apparent
--- NOTE | 2023-06-13 13:05 | P.PNANES_ITS ---
[facility] Anesthesia Record Part I Anesthesia Record I Intake, IV Amount: 1,200 Hydration: Adequate Estimated blood loss (mL): 15 Urine output (mL): 0 Blood Pressure: 131/74 SaO2: 93 Pulse Rate: 100 Airway Patency: Patent Respiratory Rate: 12 Temperature: 97.5 F Patient is:: Awake and Stable Stable to PACU at:: 13:05
[2023-06-13 13:24] LABS: POC Glucose,Bedside 133 (70-110)
--- NOTE | 2023-06-14 12:03 | EXP.ANES.II ---
[facility] Anesthesia Record Part II Anesthesia Record Part II Discharge Time: 13:54 Destination: Surgical Day Care (OP Surgery) PACU nurse assessment reviewed?: Yes Patient Condition:: Good Anesthesia Complications:: None Swallowing reflex intact?: Yes Airway Patency: Patent Cyanosis?: No Blood Pressure: 140/70 SaO2: 93 Respiratory Rate: 20 Pulse Rate: 84 Temperature: 98.2 F Mental Status: Alert & Oriented Pain level:: 0 Nausea and/or vomitting:: None Intake, IV Amount: 0 Hydration: Adequate
[2023-06-14 12:04] VITALS: BP 140/70; PULSE 84; RESP 20; TEMP 36.8; O2SAT 93
== END 2023-06-13 14:50 | disposition home or self-care (01) ==
PROVIDERS: PCP Physician Assistant; Visit Provider Orthopaedic Surgery
PROC: (CPT 29805; principal; 2023-06-13 10:30)
DX: S43.432A Superior glenoid labrum lesion of left shoulder, initial encounter (principal); M75.22 Bicipital tendinitis, left shoulder; M24.012 Loose body in left shoulder; I10 Essential (primary) hypertension; M25.812 Other specified joint disorders, left shoulder; E78.5 Hyperlipidemia, unspecified; E11.9 Type 2 diabetes mellitus without complications; F17.210 Nicotine dependence, cigarettes, uncomplicated; Z79.899 Other long term (current) drug therapy; X58.XXXA Exposure to other specified factors, initial encounter
CPT/HCPCS: 29807; 29828; 29819; 82962; 94640; 96374; C1713; J2405

== ENCOUNTER → 2023-08-09 09:22 | Outpatient (CLI) | payer OTHER, SELFPAY ==
--- NOTE | 2023-08-09 09:26 | XR_ITS ---
FINAL REPORT CLINICAL HISTORY: right ankle pain after fall FINDINGS: RIGHT ANKLE: Three views of the right ankle were obtained. There is no acute fracture or dislocation. There are mild degenerative changes. There is a plantar calcaneal spur. There is no soft tissue abnormality. IMPRESSION: No acute process. Reviewed, Interpreted and Dictated by Edgard Valenzuela III, MD Transcribed by Jairo Zimmerman Authenticated and [facility]
--- NOTE | 2023-08-09 09:26 | XR_ITS ---
FINAL REPORT CLINICAL HISTORY: R ankle pain after fall FINDINGS: 3 views of the right foot were obtained. There is no acute fracture or dislocation. There are mild degenerative changes. There is a plantar calcaneal spur. The soft tissues are unremarkable. IMPRESSION: No acute process. Reviewed, Interpreted and Dictated by Edgard Valenzuela III, MD Transcribed by Jairo Zimmerman Authenticated and [facility]
== END ==
PROVIDERS: PCP Physician Assistant; Visit Provider Student in an Organized Health Care Education/Training Program
DX: M25.571 Pain in right ankle and joints of right foot (principal)
CPT/HCPCS: 73600; 73630

== ENCOUNTER → 2023-08-10 08:29 | Outpatient (CLI) | payer OTHER, SELFPAY ==
--- NOTE | 2023-08-10 08:30 | MM_ITS ---
PROCEDURE INFORMATION: Exam: MG Bilateral Screening 3D Mammography Exam date and time: 08/10/2023 8:21 AM Age: 47 years old Clinical indication: Screening examination TECHNIQUE: Imaging protocol: Bilateral Screening tomosynthesis and 2D mammography including computer-aided detection (CAD) when performed. COMPARISON: 1. MG MM DIG SCREENING MAMM BI W/CAD 08/05/2022 10:33 AM 2. MG MM DIG SCREENING MAMM BI W/CAD 06/02/2020 8:36 AM FINDINGS: MAMMOGRAPHY: Breast composition: There are scattered areas of fibroglandular density. Mass: Questionable 1.1 cm mass in the anterior third of the right upper outer quadrant Architectural distortion: None. Calcifications: No suspicious calcifications. Asymmetric density: None. Skin thickening: None. Axillary adenopathy: None. IMPRESSION: Patient to be recalled for spot compression views of the right breast in the CC and MLO projections, a full 90 degree lateral view, and right breast ultrasound for further evaluation of a right breast mass. ASSESSMENT: BI-RADS Category 0: Incomplete- Need Additional Imaging Evaluation and/or Prior Mammograms for Comparison
== END ==
PROVIDERS: PCP Physician Assistant; Visit Provider Physician Assistant
DX: Z12.31 Encounter for screening mammogram for malignant neoplasm of breast (principal)
CPT/HCPCS: 77063; 77067

== ENCOUNTER → 2023-08-30 14:29 | Outpatient (CLI) | payer OTHER, SELFPAY ==
--- NOTE | 2023-08-30 14:29 | US_ITS ---
PROCEDURE INFORMATION: Exam: US Right Breast, Complete MG Right Diagnostic Breast Tomosynthesis Exam date and time: 08/30/2023 2:35 PM Age: 47 years old Clinical indication: Patient recalled on the basis of a screening mammogram for further evaluation; Right breast; mass TECHNIQUE: Imaging protocol: Complete ultrasound of all four quadrants of the right breast and the retroareolar regions, including ultrasound of the axilla when performed. Right Diagnostic tomosynthesis and 2D mammography including computer-aided detection (CAD) when performed. Unilateral or bilateral exam. COMPARISON: 1. MG MM DIG SCREENING MAMM BI W/CAD 08/10/2023 8:21 AM 2. MG MM DIG SCREENING MAMM BI W/CAD 08/05/2022 10:33 AM FINDINGS: MAMMOGRAPHY: Digital diagnostic spot compression views of the right breast and 90 degree lateral view of the right breast demonstrate normal overlapping fibroglandular structures without persistent mass or asymmetry identified. ULTRASOUND: Sonographic images of the right breast including the retroareolar region, all 4 quadrants and the axilla do not demonstrate any solid masses. Minimal subcentimeter cystic changes noted in the right 9 o'clock 3 cm from the nipple. No architectural distortion or acoustical shadowing. No skin thickening or axillary adenopathy. IMPRESSION: No mammographic or sonographic evidence of malignancy. Annual bilateral mammographic screening is recommended unless otherwise clinically indicated. ASSESSMENT: BI-RADS Category 2: Benign
== END ==
LOC: RAD 14:29
PROVIDERS: PCP Physician Assistant; Visit Provider Physician Assistant
DX: R92.8 Other abnormal and inconclusive findings on diagnostic imaging of breast (principal); N63.10 Unspecified lump in the right breast, unspecified quadrant
CPT/HCPCS: 76641; 77061; 77065; G0279

== ENCOUNTER 2023-09-01 15:00 | Outpatient (RCR) | payer OTHER, SELFPAY ==
--- NOTE | 2023-07-11 10:44 | HMH.OTOPEV ---
OT Inpatient Evaluation Rehab OT Outpatient Eval Start: 07/11/23 10:32 Freq: Status: Active Protocol: Document 07/11/23 10:33 RMARSHALL (Rec: 07/11/23 10:44 [facility] [id number]) E-signed By Malia Davis, OT Outpatient Therapy Subjective History Subjective History Pt is a 47 year old female who reports to therapy for initial evaluation to left shoulder. Pt is currently s/p L shoulder SLAP repair and bicep tenotomy on 06/13/23. Pt has been having pain for ~3-4 months at left shoulder and did not recall any type of injury to the joint. Pt was seen previously by OT without any type of relief or improvement in symptoms and had a MRI. With MRI pt was found to have an extensive tear of the superior and posterior labrum and a partial tear of bicep tendon. Pt is currently 4 weeks out from surgery. She returns to surgeon on July 26. Therapist will continue to see patient twice a week following SLAP repair protocol to address all left shoulder deficits. New diagnosis of cancer in past 12 No months? Chief Complaint Spasms,Weakness Symptom Type Ache,Throb,Dull Symptoms Relieved By Brace/Support Symptoms Aggravated By Physical Activity,Lifting Prior Functional Limitations None Current Functional Limitations Reaching,Lifting,Housework, Dressing,Driving,Sleeping, Recreation Activity Symptom Description Constant but Variable, Intermittent,Activity Dependent Level of pain today (0-10) 1 Pain scale - at its best (0-10) 1 Pain scale - at its worst (0-10) 8 Shoulder/Elbow Eval Shoulder Objective Measurements Shoulder ROM Left Shoulder Abduction Passive Range of 110 degrees Motion (degrees) Shoulder Flexion Passive Range of Motion 110 degrees (degrees) Shoulder External Rotation Passive Range 30 degrees of Motion (degrees) Shoulder Internal Rotation Passive Range 20 degrees of Motion (degrees) Shoulder MMT Shoulder Abduction Strength Grade 3- Fair- Shoulder Flexion Strength Grade 3- Fair- Shoulder External Rotation Strength 3- Fair- Grade Shoulder Internal Rotation Strength 3- Fair- Grade Shoulder Strength Patient Testing Sitting Position Elbow Objective Measurements QuickDASH Activities Please rate your ability to do the following activities in the last week by selecting the number below the appropriate response. 1. Open a tight or new jar. Severe difficulty 2. Do heavy dandy operator (e.g., wash Severe difficulty stubbs, floors). 3. Carry a shopping bag or briefcase. Severe difficulty 4. Wash your back. Severe difficulty 5. Use a knife to cut food. Severe difficulty 6. Recreational activities in which you Severe difficulty take some force or impact through your arm, shoulder, or hand (e.g., golf, hammering, tennis, etc.). 7. During the past week, to what extent Quite a bit has your arm, shoulder or hand problem interfered with your normal social activities with family, friends, neighbors or groups? 8. During the past week, were you Very limited limited in your work or other regular daily activites as a result of your arm, shoulder or hand problem? 9. Arm, shoulder or hand pain. Mild 10. Tingling (pins and needles) in your None arm, shoulder or hand. 11. During the past week, how much Moderate difficulty difficulty have you had sleeping because of the pain in your arm, shoulder or hand? Quick DASH 38 Work Module (optional) The following questions ask about the impact of your arm, shoulder or hand problem on your ability to work (including homemaking if that is your main work role). 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 Yes 1. Using your usual technique for your Severe difficulty work? 2. Doing your usual work because of arm, Severe difficulty shoulder or hand pain? 3. Doing your work as well as you would Severe difficulty like? 4. Spending your usual amount of time Severe difficulty doing your work? Quick Dash Work Module Score 16 OT Outpatient Assessment Impairments Problems/Impairments Palpation Tenderness,Impaired Range of Motion,Impaired Strength,Impaired Endurance, Impaired Lifting,Impaired Dressing,Impaired Shower/ Bathing,Impaired Household Care,Impaired Recreational Activities,Subjective C/O Pain Prognosis Rehab Potential Good Clinical Impression Consistent with Diagnosis Yes Short Term Goals Number of Weeks 4 Increase Range of Motion Yes: Flex: 110 Abd: 110 ER: 50 IR: 30 Increase Strength Yes: 3,3+/5 throughout left shoulder Increase Endurance Yes: Pt will tolerate L shoulder exercises for ~20 min prior to rest. Decrease Subjective C/O Pain Yes: 5/10 pain at worst Patient to be Ind w/ HEP Yes: AAROM exercises [facility]iary Goals Number of Weeks 8 Increase Range of Motion Yes: Flex: 130 Abd: 130 ER: 75 IR: 60 Increase Strength Yes: 4,4-/5 throughout left shoulder Increase Endurance Yes: pt will tolerate ~30 minutes of exercises at L shoulder prior to rest. Decrease Subjective C/O Pain Yes: 3/10 at worst Patient to be Ind w/ Advanced HEP Yes: Advanced strengthening Outpatient Therapy Plan of Care Treatment Plan May Include Therapeutic Exercise Including Home Yes Exercise Program Manual Therapy Techniques Yes Neuromuscular Re-education Yes Therapeutic Activities to Return to Yes Previous Functional/Work Level Dry Needling Yes Thermal Modalities Yes Electrical Stimulation Yes Ultrasound/Phonophoresis Yes Iontophoresis Yes Parrafin Yes Orthotics/Bracing/Splinting Yes Vasopneumatic Compression Pump Yes Massage Yes Manual Lymphatic Drainage Yes Eval/Re-Eval Yes Frequency Times per week 2 Duration Number of Weeks 8 Addendums This patient is a candidate for social No or vocational rehab? Patient/Guardian verbally acknowledges Yes understanding of treatment program and consents to further treatment? Patient/Guardian verbally acknowledges Yes understanding of diagnosis, prognosis and goals for treatment? Eval Complexity OT Charge 23156 - Moderate Complexity PHYSICIAN CERTIFICATION: I certify the specified therapy services for Jenny Barr are required, authorized, and reviewed every 30 days.
--- NOTE | 2023-08-09 10:28 | HMH.RHREAS ---
Rehab Reassessment Rehab OP Re-assessment Start: 07/11/23 10:10 Freq: Status: Active Protocol: Document 08/09/23 10:06 SALAZAR (Rec: 08/09/23 10:28 [facility] [id number]) E-signed By FLORIDALMA EsparzaDASH Activities Please rate your ability to do the following activities in the last week by selecting the number below the appropriate response. 1. Open a tight or new jar. Mild difficulty 2. Do heavy copy director (e.g., wash Moderate difficulty stubbs, floors). 3. Carry a shopping bag or briefcase. No difficulty 4. Wash your back. Moderate difficulty 5. Use a knife to cut food. No difficulty 6. Recreational activities in which you Mild difficulty take some force or impact through your arm, shoulder, or hand (e.g., golf, hammering, tennis, etc.). 7. During the past week, to what extent Not at all has your arm, shoulder or hand problem interfered with your normal social activities with family, friends, neighbors or groups? 8. During the past week, were you Moderately limited limited in your work or other regular daily activites as a result of your arm, shoulder or hand problem? 9. Arm, shoulder or hand pain. Moderate 10. Tingling (pins and needles) in your None arm, shoulder or hand. 11. During the past week, how much Severe difficulty difficulty have you had sleeping because of the pain in your arm, shoulder or hand? Quick DASH 24 Work Module (optional) The following questions ask about the impact of your arm, shoulder or hand problem on your ability to work (including homemaking if that is your main work role). 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 Yes 1. Using your usual technique for your Moderate difficulty work? 2. Doing your usual work because of arm, Moderate difficulty shoulder or hand pain? 3. Doing your work as well as you would Moderate difficulty like? 4. Spending your usual amount of time Moderate difficulty doing your work? Quick Dash Work Module Score 12 Rehab Re-assessment Subjective Subjective I do think it's better. Objective Objective Notes Pt continues to be seen twice a week to address L shoulder deficits. Pt is currently 8 week s/p. Each session, pt engages in AROM, AAROM, and light strengthening exercises for L shoulder. Pt also receives PROM manual stretching to shoulder in all planes; flexion, abduction, ER , and IR. Modalities are provided to decrease pain/ inflammation. Assessment Progress Assessment Progressing as Expected Assessment Notes Pt is very consistent about attending therapy sessions. Pt reports her pain has improved since initial evaluation and now only reaches ~6/10 at worst. Most of her pain is in abduction. Pt's AROM has improved significantly as well. Current L shoulder AROM Flex: 145 degrees Abd: 140 degrees ER: 75 degrees IR: [address] goals [address], 2, 3, and 5 LT Goals Not Met See below Revised Goals ST LT-5 New AROM L shoulder goals Flex: 155 degrees Abd: 150 degrees ER: 80 degrees IR: 60 degrees Plan Plan Continue with OT plan of care at this time Frequency of Therapy 2x's a week Duration of therapy 4 more weeks Time and Billing Re-Eval Time 11 Re-Eval Billing Units 1 PHYSICIAN CERTIFICATION: I certify the specified therapy services for Jenny Barr are required, authorized, and reviewed every 30 days.
== END 2023-09-01 16:10 | disposition home or self-care (01) ==
LOC: OT 15:00
PROVIDERS: PCP Physician Assistant; Visit Provider Orthopaedic Surgery
DX: S43.432A Superior glenoid labrum lesion of left shoulder, initial encounter (principal)
CPT/HCPCS: 97010; 97014; 97110; 97140; 97164; 97166; G0283

== ENCOUNTER → 2023-10-03 23:10 | Outpatient (CLI) | payer OTHER, SELFPAY ==
[2023-10-03 18:36] LABS: Influenza A, PCR Not Detected (NotDetected); Influenza B, PCR Not Detected (NotDetected)
[2023-10-03 21:14] LABS: Coronavirus 19, PCR Detected (NotDetected)
== END ==
PROVIDERS: PCP Physician Assistant; Visit Provider Family Medicine
DX: R50.9 Fever, unspecified (principal); R09.81 Nasal congestion; U07.1 COVID-19
CPT/HCPCS: 87636

== ENCOUNTER 2023-11-17 09:57 | Outpatient (CLI) | payer OTHER, SELFPAY ==
--- NOTE | 2023-11-17 10:01 | XR_ITS ---
FINAL REPORT TECHNIQUE: Chest PA & Lateral CLINICAL HISTORY: cough COMPARISON: 06/08/2023 FINDINGS: 2 views of the chest were performed. The heart size is normal. The mediastinum is within normal limits. There is no acute cardiopulmonary process. There are no pleural effusions. There is no pneumothorax. The bony thorax appears intact. IMPRESSION: No acute cardiopulmonary process. Reviewed, Interpreted and Dictated by Tio Silver MD Transcribed by Nahomy Manzo Authenticated and [facility]
== END 2023-11-17 23:59 ==
LOC: RAD 09:58
PROVIDERS: PCP Physician Assistant; Visit Provider Family Medicine
DX: R05.9 Cough, unspecified (principal); R09.81 Nasal congestion
CPT/HCPCS: 71046

== ENCOUNTER 2023-12-16 19:39 | Outpatient (CLI) | payer OTHER, SELFPAY ==
[2023-12-16 17:34] LABS: Basophils # 0.1 K/mm3 (0-0.2); Basophils % 0.4 % (0.1-2.0); Eosinophils # 0.1 K/mm3 (0.0-0.4); Eosinophils % 0.5 % (0.1-12.0); Hematocrit 46.4 % (37.0-47.0); Hemoglobin 14.8 g/dL (12.2-16.2); Lymphocytes # 3.2 K/mm3 (0.7-4.5); Lymphocytes % 26.1 % (10-50); Mean Corpuscular HGB Conc 31.9 g/dL (31.8-35.4); Mean Corpuscular Hemoglobin 30.9 pg (27.0-31.2); Mean Corpuscular Volume 96.9 fl (81-99); Mean Platelet Volume 9.3 fl (7.4-10.4); Monocytes # 0.4 K/mm3 (0.1-1.0); Monocytes % 3.6 % (1.7-9.3); Neutrophils # 8.5 K/mm3 (1.8-7.8); Neutrophils % 69.3 % (37.0-80.0); Platelet Count 408 K/mm3 (142-424); Red Blood Count 4.79 M/mm3 (4.20-5.40); White Blood Count 12.3 K/mm3 (4.8-10.8)
[2023-12-16 18:09] LABS: Alanine Aminotransferase 50 U/L (12-78); Albumin Level 4.2 g/dl (3.5-5.0); Albumin/Globulin Ratio 1.6 (1.1-1.8); Alkaline Phosphatase 112 U/L (38-126); Anion Gap 11.4 mEq/L (5-15); Aspartate Amino Transferase 39 U/L (14-36); Bilirubin,Total 0.4 mg/dl (0.2-1.3); Blood Urea Nitrogen 12 mg/dl (7-17); Calcium 9.3 mg/dl (8.4-10.2); Carbon Dioxide 26 mmol/L (22.0-30.0); Chloride 106 mmol/L (98-107); Estimated Glomerular Filt Rate 89 ml/min (>60); GFR (African American) 107 ML/MIN (>60); Globulin 2.6 g/dL (1.3-3.2); Glucose 129 mg/dl (74-100); Potassium 4.4 mmoL/L (3.5-5.1); Sodium 139 mmol/L (136-145); Total Protein,Serum 6.8 g/dl (6.3-8.2)
[2023-12-16 18:20] LABS: Hemoglobin A1C 6.5 % (4.0-6.0)
[2023-12-16 18:26] LABS: Troponin I < 0.01 ng/ml (0.00-0.034)
[2023-12-16 18:27] LABS: 25-OH Vitamin D, Total 24.2 ng/mL (30-100)
[2023-12-16 18:40] LABS: Thyroid Stimulating Hormone 0.44 uIU/mL (0.465-4.68)
[2023-12-16 18:59] LABS: Vitamin B12 344 pg/mL (239-931)
[2023-12-19 09:12] LABS: Free Thyroxine Index 2.4 ug/dL (5.93-13.13); T4 (Thyroxine) 8.7 ug/dl (5.53-11.0); Triiodothryronine (T3) Uptake 28 % (23.5-40.5)
[2023-12-19 09:26] LABS: Thyroid Stimulating Hormone 0.45 uIU/mL (0.465-4.68)
== END 2023-12-16 23:59 ==
LOC: LAB.DROPOF 19:39
PROVIDERS: PCP Family Medicine; Visit Provider Family Medicine
DX: R06.09 Other forms of dyspnea (principal); R53.83 Other fatigue; I20.89 Other forms of angina pectoris; R79.89 Other specified abnormal findings of blood chemistry; M79.7 Fibromyalgia; E66.9 Obesity, unspecified; E11.9 Type 2 diabetes mellitus without complications; F17.200 Nicotine dependence, unspecified, uncomplicated; E55.9 Vitamin D deficiency, unspecified; Z79.84 Long term (current) use of oral hypoglycemic drugs; Z68.31 Body mass index [BMI] 31.0-31.9, adult; Z82.49 Family history of ischemic heart disease and other diseases of the circulatory system
CPT/HCPCS: 80053; 82306; 82607; 83036; 84436; 84443; 84479; 84484; 85025

== ENCOUNTER 2023-12-19 09:02 | Outpatient (CLI) | payer OTHER, SELFPAY ==
--- NOTE | 2023-12-19 09:11 | ECG_ITS ---
APPROVED REPORT Exam: Resting ECG HR:75 bpm ECG Measurements Heart Rate 75 AXES VT 160 P 64 QRSd 89 QRS 52 QT 368 T 48 QTc 396 Conclusion SINUS RHYTHM NORMAL ECG UNCONFIRMED REPORT Electronically signed by : Emory Vasquez MD 12/19/2023 19:59:25
--- NOTE | 2023-12-19 09:22 | XR_ITS ---
FINAL REPORT CLINICAL HISTORY: pre op exam trigger finger release..cough..soa COMPARISON: 06/08/2023 FINDINGS: PA and lateral views of the chest are obtained. There is no prior exam for comparison. The cardiac and mediastinal silhouettes are within normal limits. The lungs are clear. There is no pleural effusion, pneumothorax, or acute osseous abnormality. IMPRESSION: No radiographic evidence of acute cardiac or pulmonary disease. Reviewed, Interpreted and Dictated by Kavya Lew MD Transcribed by Nahomy Manzo Authenticated and [facility]
[2023-12-19 09:41] LABS: Basophils # 0.1 K/mm3 (0-0.2); Basophils % 0.5 % (0.1-2.0); Eosinophils # 0.2 K/mm3 (0.0-0.4); Eosinophils % 1.8 % (0.1-12.0); Hematocrit 44.9 % (37.0-47.0); Hemoglobin 14.8 g/dL (12.2-16.2); Lymphocytes # 3.2 K/mm3 (0.7-4.5); Lymphocytes % 30.4 % (10-50); Mean Corpuscular HGB Conc 32.9 g/dL (31.8-35.4); Mean Corpuscular Hemoglobin 31.4 pg (27.0-31.2); Mean Corpuscular Volume 95.5 fl (81-99); Mean Platelet Volume 7.9 fl (7.4-10.4); Monocytes # 0.6 K/mm3 (0.1-1.0); Monocytes % 5.9 % (1.7-9.3); Neutrophils # 6.5 K/mm3 (1.8-7.8); Neutrophils % 61.3 % (37.0-80.0); Platelet Count 393 K/mm3 (142-424); Red Cell Distribution Width 12.7 % (11.5-17.5); White Blood Count 10.5 K/mm3 (4.8-10.8)
== END 2023-12-19 23:59 ==
LOC: LAB 09:03
PROVIDERS: PCP Physician Assistant; Visit Provider Orthopaedic Surgery
DX: Z01.818 Encounter for other preprocedural examination (principal); M18.12 Unilateral primary osteoarthritis of first carpometacarpal joint, left hand
CPT/HCPCS: 36415; 71046; 85025; 93005

== ENCOUNTER 2023-12-21 07:17 | Day surgery (SDC) | payer OTHER, SELFPAY ==
[2023-12-19 13:43] VITALS: BMI 31.9
[2023-12-21] MEDS: LACTATED RINGERS 1000ML 1,000 ML 25 ML IV (07:28)
[2023-12-21 07:31] VITALS: BP 127/65; PULSE 59; RESP 18; TEMP 36.7; O2SAT 94
[2023-12-21 07:44] LABS: POC Glucose,Bedside 124 (70-110)
[2023-12-21] MEDS: LIDOCAINE 1% W/EPI 1:100,000 20ML VIAL 20 ML (08:45)
[2023-12-21] MEDS: CEFAZOLIN SODIUM 2 GM in 0.9 % SODIUM CHLORIDE 100 ML IV (08:59)
[2023-12-21 09:12] VITALS: BP 89/51; PULSE 76; RESP 14; TEMP 36.3; O2SAT 96
--- NOTE | 2023-12-21 09:13 | EXP.OP.NOTE ---
Date of procedure: 12/21/23 Pre-op Diagnosis:: Right ring finger trigger Post-op Diagnosis:: Same Procedure performed:: Right ring finger A1 carly release Surgeon:: Bernardino Nevarez DO SPEECH INSTRUCTOR:: Daniel Hernandez Anesthesia: MAC and local Estimated blood loss (mL): 0 Operative findings:: Triggering right ring finger Operative note:: Patient was identified preoperatively. Right hand right ring finger marked with yes my initials transferred operative suite placed upon operating bed given sedation final operative timeout performed to identify proper patient procedure and extremity everyone involved the case agrees no count indication beginning did receive preoperative antibiotics. Local anesthesia lidocaine 1% with epinephrine were injected into the planned incision site at the A1 carly right ring finger. Then the right upper extremity was prepped and draped normal sterile fashion. Once prepped and draped. Local anesthesia was confirmed. Esmarch was used to exsanguinate the extremity pneumatic tourniquet inflated to 250 mmHg. Skin knife was used incise through skin careful dissection taken down with the scissors to identify the A1 carly on the right ring finger. Hocking blade was used to make an incision in the A1 carly and then release of the A1 carly was performed with scissors under direct visualization. This resolved all triggering of the finger. Irrigation of the wound performed. Skin closed with nylon stitch sterile hand dressing placed patient waken for sedation taken recovery in stable condition. Condition: stable Disposition: PACU Complications:: None apparent
[2023-12-21 09:27] VITALS: BP 103/62; PULSE 82; RESP 16; O2SAT 97
== END 2023-12-21 09:34 | disposition home or self-care (01) ==
PROVIDERS: PCP Physician Assistant; Visit Provider Orthopaedic Surgery
PROC: (CPT 26055; principal; 2023-12-21 08:45)
DX: M65.341 Trigger finger, right ring finger (principal)
CPT/HCPCS: 26055; 82962; 96374; J2704

== ENCOUNTER 2024-01-03 12:43 | Outpatient (CLI) | payer OTHER, SELFPAY ==
[2024-01-03 12:54] LABS: Basophils # 0.1 K/mm3 (0-0.2); Basophils % 1.3 % (0.1-2.0); Eosinophils # 0.1 K/mm3 (0.0-0.4); Eosinophils % 0.8 % (0.1-12.0); Hematocrit 45.6 % (37.0-47.0); Lymphocytes # 3.1 K/mm3 (0.7-4.5); Lymphocytes % 29.7 % (10-50); Mean Corpuscular HGB Conc 32.8 g/dL (31.8-35.4); Mean Corpuscular Hemoglobin 32.3 pg (27.0-31.2); Mean Corpuscular Volume 98.5 fl (81-99); Mean Platelet Volume 8.1 fl (7.4-10.4); Monocytes # 0.5 K/mm3 (0.1-1.0); Monocytes % 4.4 % (1.7-9.3); Neutrophils # 6.6 K/mm3 (1.8-7.8); Neutrophils % 63.7 % (37.0-80.0); Platelet Count 407 K/mm3 (142-424); Red Blood Count 4.64 M/mm3 (4.20-5.40); White Blood Count 10.3 K/mm3 (4.8-10.8)
[2024-01-03 13:07] LABS: Alanine Aminotransferase 42 U/L (12-78); Albumin Level 4.3 g/dl (3.5-5.0); Albumin/Globulin Ratio 1.5 (1.1-1.8); Alkaline Phosphatase 112 U/L (38-126); Anion Gap 15.4 mEq/L (5-15); Aspartate Amino Transferase 36 U/L (14-36); Bilirubin,Total 0.4 mg/dl (0.2-1.3); Blood Urea Nitrogen 14 mg/dl (7-17); Calcium 9.1 mg/dl (8.4-10.2); Carbon Dioxide 21 mmol/L (22.0-30.0); Chloride 105 mmol/L (98-107); Chol/HDL Ratio 3.7 (1-3.5); Cholesterol 161 mg/dl (140-200); Estimated Glomerular Filt Rate 89 ml/min (>60); GFR (African American) 107 ML/MIN (>60); Globulin 2.8 g/dL (1.3-3.2); Glucose 150 mg/dl (74-100); HDL Cholesterol 44 mg/dl (40-60); Potassium 4.4 mmoL/L (3.5-5.1); Sodium 137 mmol/L (136-145); Total Protein,Serum 7.1 g/dl (6.3-8.2); Triglycerides 184 mg/dl (30-150); VLDL Cholesterol 37 mg/dL (0-40)
[2024-01-03 13:18] LABS: C-Reactive Protein 4.2 mg/L (0-4); Direct LDL Cholesterol 84.91 mg/dL (100-129)
[2024-01-03 13:28] LABS: 25-OH Vitamin D, Total 37.5 ng/mL (30-100)
[2024-01-03 13:37] LABS: Thyroid Stimulating Hormone 0.52 uIU/mL (0.465-4.68)
[2024-01-03 13:50] LABS: Hemoglobin A1C 6.7 % (4.0-6.0)
[2024-01-03 13:57] LABS: Vitamin B12 377 pg/mL (239-931)
[2024-01-04 16:22] LABS: EBV Ab VCA, IgG >600.0 U/mL (0.0-17.9); EBV Ab VCA, IgM <36.0 U/mL (0.0-35.9)
== END 2024-01-03 23:59 ==
LOC: LAB.DROPOF 12:43
PROVIDERS: PCP Physician Assistant; Visit Provider Physician Assistant
DX: E11.69 Type 2 diabetes mellitus with other specified complication (principal); M79.7 Fibromyalgia; Z79.899 Other long term (current) drug therapy
CPT/HCPCS: 80053; 80061; 82306; 82607; 83036; 84443; 85025; 86140; 86664; 86665

== ENCOUNTER 2024-01-30 22:47 | Outpatient (CLI) | payer OTHER, SELFPAY ==
[2024-01-30 18:01] LABS: Basophils # 0.2 K/mm3 (0-0.2); Basophils % 1.6 % (0.1-2.0); Eosinophils # 0.2 K/mm3 (0.0-0.4); Eosinophils % 1.5 % (0.1-12.0); Hematocrit 44.2 % (37.0-47.0); Hemoglobin 14.7 g/dL (12.2-16.2); Lymphocytes # 3.7 K/mm3 (0.7-4.5); Lymphocytes % 32.5 % (10-50); Mean Corpuscular HGB Conc 33.2 g/dL (31.8-35.4); Mean Corpuscular Hemoglobin 31.7 pg (27.0-31.2); Mean Corpuscular Volume 95.5 fl (81-99); Mean Platelet Volume 8.1 fl (7.4-10.4); Monocytes # 0.7 K/mm3 (0.1-1.0); Monocytes % 6.3 % (1.7-9.3); Neutrophils # 6.6 K/mm3 (1.8-7.8); Platelet Count 413 K/mm3 (142-424); Red Blood Count 4.63 M/mm3 (4.20-5.40); Red Cell Distribution Width 13.1 % (11.5-17.5); White Blood Count 11.4 K/mm3 (4.8-10.8)
[2024-01-30 18:17] LABS: Alanine Aminotransferase 37 U/L (12-78); Albumin Level 4.3 g/dl (3.5-5.0); Albumin/Globulin Ratio 1.4 (1.1-1.8); Alkaline Phosphatase 92 U/L (38-126); Anion Gap 10.7 mEq/L (5-15); Aspartate Amino Transferase 36 U/L (14-36); Bilirubin,Total 0.4 mg/dl (0.2-1.3); Blood Urea Nitrogen 12 mg/dl (7-17); Calcium 9.8 mg/dl (8.4-10.2); Carbon Dioxide 26 mmol/L (22.0-30.0); Chloride 106 mmol/L (98-107); Estimated Glomerular Filt Rate 89 ml/min (>60); GFR (African American) 107 ML/MIN (>60); Glucose 72 mg/dl (74-100); Potassium 4.7 mmoL/L (3.5-5.1); Total Protein,Serum 7.3 g/dl (6.3-8.2)
[2024-01-30 18:22] LABS: C-Reactive Protein 1.6 mg/L (0-4)
[2024-01-30 18:24] LABS: Hemoglobin A1C 6.5 % (4.0-6.0)
[2024-01-30 18:33] LABS: 25-OH Vitamin D, Total 32.6 ng/mL (30-100)
[2024-01-30 18:58] LABS: Erythrocyte Sedimentation Rate 8 mm/hr (0-20)
[2024-01-30 19:06] LABS: Vitamin B12 344 pg/mL (239-931)
[2024-01-30 19:42] LABS: Free Thyroxine Index 2.2 ug/dL (5.93-13.13); T4 (Thyroxine) 7.6 ug/dl (5.53-11.0); Triiodothryronine (T3) Uptake 29 % (23.5-40.5)
[2024-01-30 19:56] LABS: Thyroid Stimulating Hormone 0.83 uIU/mL (0.465-4.68)
[2024-01-30 20:13] LABS: Iron 92 ug/dL (37-170)
[2024-01-30 20:23] LABS: Total Iron Binding Capacity 342 ug/dL (265-497)
[2024-01-30 20:24] LABS: Sodium 138 mmol/L (136-145)
[2024-01-30 20:49] LABS: Ferritin 90.6 ng/ml (6.24-137)
[2024-02-01 12:12] LABS: Anti-Centromere B Antibodies <0.2 AI (0.0-0.9); Anti-Cyclic Citrullinated Pept 3 units (0-19); Anti-DNA (DS) Ab Qn <1 IU/mL (0-9); Anti-Jo-1 <0.2 AI (0.0-0.9); Anti-Smith Antibody <0.2 AI (0.0-0.9); Antichromatin Antibodies <0.2 AI (0.0-0.9); Antiscleroderma-70 Antibodies <0.2 AI (0.0-0.9); RA Latex Turbid. <10.0 IU/mL (<14.0); RNP Antibodies <0.2 AI (0.0-0.9); Sjogren's Anti-SS-A <0.2 AI (0.0-0.9); Sjogren's Anti-SS-B <0.2 AI (0.0-0.9)
[2024-02-01 17:47] LABS: Peripheral Smear Review Scanned Result
== END 2024-01-30 23:59 ==
LOC: LAB.DROPOF 22:48
PROVIDERS: PCP Physician Assistant; Visit Provider Physician Assistant
DX: R53.83 Other fatigue (principal); J02.9 Acute pharyngitis, unspecified; R14.0 Abdominal distension (gaseous); R19.7 Diarrhea, unspecified; R11.0 Nausea; D72.828 Other elevated white blood cell count; R94.6 Abnormal results of thyroid function studies; R73.09 Other abnormal glucose; E66.9 Obesity, unspecified; Z68.31 Body mass index [BMI] 31.0-31.9, adult
CPT/HCPCS: 80053; 82306; 82607; 82728; 83036; 83540; 83550; 84436; 84443; 84479; 85025; 85651; 86140; 86200; 86225; 86235; 86431

== ENCOUNTER → 2024-04-13 14:12 | Outpatient (CLI) | payer OTHER, SELFPAY | LOC: SL 14:12 | PROVIDERS: PCP Physician Assistant; Visit Provider Physician Assistant | DX: G47.30 Sleep apnea, unspecified (principal); R06.83 Snoring; R53.83 Other fatigue | CPT/HCPCS: G0399 ==

== ENCOUNTER 2024-04-24 08:55 | Outpatient (CLI) | payer OTHER, SELFPAY ==
[2024-04-24 09:47] LABS: Erythrocyte Sedimentation Rate 8 mm/hr (0-20)
[2024-04-25 12:13] LABS: RA Latex Turbid. <10.0 IU/mL (<14.0)
[2024-04-25 14:12] LABS: Anti-DNA (DS) Ab Qn <1 IU/mL (0-9)
[2024-04-25 15:22] LABS: H. pylori Breath Test Negative (Negative)
== END 2024-04-24 23:59 | disposition home or self-care (01) ==
LOC: LAB 08:56
PROVIDERS: PCP Physician Assistant; Visit Provider Physician Assistant
DX: A04.8 Other specified bacterial intestinal infections (principal); E11.69 Type 2 diabetes mellitus with other specified complication; M79.7 Fibromyalgia; R53.83 Other fatigue
CPT/HCPCS: 36415; 83013; 85651; 86225; 86431

== ENCOUNTER 2024-04-30 07:55 | Outpatient (CLI) | payer OTHER, SELFPAY ==
--- NOTE | 2024-04-30 07:55 | MR_ITS ---
FINAL REPORT CLINICAL HISTORY: Lt Shoulder Pain COMPARISON: 04/01/2023 FINDINGS: Multiplanar MR imaging of the left shoulder was performed after the intra-articular injection of dilute gadolinium solution. In the interval since the prior exam of 2022 the patient has undergone a labral tear repair. The tendons of the rotator cuff are intact without evidence of rotator cuff tear. There is no evidence of contrast leakage from the glenohumeral joint to the subacromial/subdeltoid bursa. A small amount of fluid is present in the subacromial bursa. There is mild acromioclavicular degenerative change. There is irregularity of the labrum, favored to represent postoperative change. No convincing labral tear is seen. The proximal LHBT is not seen, and the patient may have undergone a biceps tenodesis or biceps tenotomy. There is no evidence of fracture. There is worsening of the glenoid chondromalacia since the prior exam. The musculature is intact. No soft tissue mass or cyst is identified. IMPRESSION: No evidence of rotator cuff tear tear. Interval labral tear repair since the prior MRI of 2022. There is irregularity of the labrum favored to represent postoperative change, without convincing evidence of a recurrent labral tear. The proximal LHBT is not seen, and the patient may have undergone a biceps tenodesis or biceps tenotomy. 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 Reviewed, Interpreted and Dictated by Edgard Valenzuela III, MD Transcribed by Nahomy Manzo Authenticated and [facility]
--- NOTE | 2024-04-30 07:55 | IR_ITS ---
FINAL REPORT CLINICAL HISTORY: Lt shoulder pain, ft 43 sec ft 8.25mgy FINDINGS: LEFT SHOULDER ARTHROGRAM HISTORY: Left shoulder pain, previous labral repair. ATTENDING PHYSICIAN: Dr. Valenzuela PHYSICIAN TELECOMMUNICATIONS NETWORK PLANNER: Adela Mccormack PA-C PROCEDURE: Informed consent was obtained from the patient. Timeout procedure was performed prior to beginning. Patient was placed supine on the fluoroscopy table. Fluoroscopy was utilized to localize the left shoulder joint space. Skin was marked appropriately. Patient was prepped and draped in the usual sterile fashion over the left shoulder. Skin was anesthetized with 1% lidocaine. Access to the joint space was obtained using a 3-1/2 inch spinal needle. Small amount of Isovue contrast was injected to confirm needle placement. This was confirmed. Subsequently, approximately 20 mL of dilute gadolinium was gently injected into the joint space. The patient tolerated the procedure well and left the department in good condition. TOTAL IMAGES:2 Radiation exposure in Reference air Kerma: 8.25 mGy FLUORSCOPY TIME: 43 seconds IMPRESSION: Technically successful fluoroscopic guided left shoulder injection for MR arthrogram. Please see MRI report. Reviewed, Interpreted and Dictated by Edgard Valenzuela III, MD Transcribed by Adela Mccormack PA-C Authenticated and [facility]
[2024-04-30] MEDS: IOPAMIDOL-370 (76%);100ML BOTTLE IV (08:53)
== END 2024-04-30 23:59 | disposition home or self-care (01) ==
LOC: RAD 07:55
PROVIDERS: PCP Physician Assistant; Visit Provider Orthopaedic Surgery
DX: M25.512 Pain in left shoulder (principal)
CPT/HCPCS: 73040; 73222; Q9967

== ENCOUNTER 2024-06-03 11:41 | Emergency (ER) | payer OTHER, SELFPAY ==
[2024-06-03 11:50] VITALS: BP 134/66; PULSE 92; RESP 20; TEMP 37.1; O2SAT 97; BMI 33.5
--- NOTE | 2024-06-03 11:57 | ED_ITS ---
Discharge Plan Disposition Patient Disposition: Home, Self-Care Condition: Good Prescriptions Prescriptions: New cephalexin 500 mg capsule 500 mg PO QID 10 Days Qty: 40 0RF No Action Rybelsus 7 mg tablet 7 mg PO DAILY Qty: 30 2RF lisinopril 10 mg tablet 10 mg PO DAILY Qty: 90 1RF escitalopram oxalate 20 mg tablet See Rx Instructions .ROUTE .COMPLEX Qty: 90 2RF Dose Instruction: TAKE 1 TABLET BY MOUTH ONCE DAILY Rx Instructions: TAKE 1 TABLET BY MOUTH ONCE DAILY atorvastatin 20 mg tablet See Rx Instructions .ROUTE .COMPLEX Qty: 90 3RF Rx Instructions: TAKE ONE TABLET BY MOUTH EVERY DAY celecoxib 200 mg capsule See Rx Instructions .ROUTE .COMPLEX Qty: 180 1RF Dose Instruction: TAKE 2 CAPSULES BY MOUTH ONCE DAILY Rx Instructions: TAKE 2 CAPSULES BY MOUTH ONCE DAILY Rexulti 1 mg tablet 1 mg PO DAILY Referrals Follow up/Referrals: Janet Chapman PA [Primary Care Provider] - See instructions Sue Evans DPM [Staff Physician] - See instructions Activity Restrictions/Add. Instructions Additional Instructions/Restrictions: Rest the extremity, Wear the bernabe wrap for compression, Elevate the extremity as tolerated while you are resting. Follow up with Dr. Evans (podiatry). I put in a referral but you need to call her office and schedule an appointment. Follow up with your regular doctor. GO TO THE ER FOR ANY WORSENING SYMPTOMS Clinical Impressions Clinical Impression: Foot pain, right, Diabetes Instructions Patient Instructions: DI for Foot Pain Print Language Print Language: [place] Discharge ED Provider: Saturnino Thornton [facility] [place] [facility] [place] General Stated complaint: right foot pain Time Seen by Provider: 06/03/24 11:56 History of Present Illness Provider Complaint: She states that she has has right foot pain since yesterday. She denies any injury. She states that she is having pain on the top of her right foot that is worse when she walks and flexes the foot. She denies any other joint pain. Related Data Home Medications ?Medication ?Instructions ?Recorded ?Confirmed brexpiprazole 1 mg tablet (Rexulti) 1 mg PO DAILY 06/03/24 06/03/24 Previous Rx's ?Medication ?Instructions ?Recorded atorvastatin 20 mg tablet See Rx Instructions .Route 02/23/24 .COMPLEX Cholesterol #90 tabs celecoxib 200 mg capsule See Rx Instructions .Route 02/23/24 .COMPLEX #180 caps escitalopram oxalate 20 mg tablet See Rx Instructions .Route 02/23/24 .COMPLEX #90 tabs lisinopril 10 mg tablet 10 mg PO DAILY bp #90 tabs 02/23/24 semaglutide 7 mg tablet (Rybelsus) 7 mg PO DAILY #30 tabs 02/23/24 cephalexin 500 mg capsule 500 mg PO QID 10 days #40 caps 06/03/24 Allergies Allergy/AdvReac Type Severity Reaction Status Date / Time cariprazine [From Vraylar] AdvReac Intermediate tics Verified 05/08/24 14:50 Opioids - Morphine Analogues AdvReac Intermediate Vomiting Verified 05/08/24 14:50 acetaminophen [From Lortab] AdvReac Verified 05/08/24 14:50 hydrocodone [From Lortab] AdvReac Verified 05/08/24 14:50 morphine Allergy Mild Abdominal Uncoded 05/08/24 14:50 Pain metformin AdvReac Intermediate vomiting Uncoded 05/08/24 14:50 PFSH PFSH Disclaimer: The information contained in this section may have been updated after the patient was seen, as this information can be updated by other users. Medical History Diarrhea Myalgia Chills Fever IBS (irritable bowel syndrome) Asthma Mouth ulcer Neuroforaminal stenosis of lumbar spine Herniation of lumbar intervertebral disc with radiculopathy Radicular pain of both lower extremities Lumbar canal stenosis Diabetes Neuropathy Low back pain History of rheumatic fever Urinary incontinence Hyperlipidemia Fibromyalgia Hypertension Perioral dermatitis Vitamin D deficiency (~08/19/18) Hand pain, left Depression Surgical History History of section History of hand surgery CMC joint bilateral History of hysterectomy partial H/O lumbar discectomy Family History Other Family history of cancer Social History Smoking Status: Current every day smoker tobacco type: cigarettes packs per day: 1 second hand exposure: Yes alcohol intake: never substance use type: denies use current occupational status: unemployed Travel in the last 8 weeks: None household members: family housing: house current occupational exposures/hazards: No caffeine: Yes ROS Obtained: Yes All systems reviewed & no additional complaints except as documented Constitutional Constitutional: Denies chills and Denies fever(s) Eyes Eyes: Denies eye discharge ENT Ears, Nose, Mouth, and Throat: Denies dizziness, Denies otalgia and Denies sore throat Cardiovascular Cardiovascular: Denies chest pain Respiratory Respiratory: Denies shortness of breath, Denies chest congestion, Denies cough, Denies stridor and Denies wheezing Gastrointestinal Gastrointestingal: Denies nausea or vomiting Musculoskeletal Musculoskeletal: Reports as per HPI Integumentary/Breasts Skin/Breast: Denies redness, Denies rash and Denies wounds Neurologic Neurologic: Denies dizziness and Denies paresthesias Allergic/Immunologic Allergic/Immunologic: Denies wheezing Physical Exam General General appearance: alert and in no apparent distress Head Head exam: atraumatic, normocephalic and normal inspection Eye Eye exam: Present normal appearance, PERRL and EOMI ENT ENT exam: Present normal exam, normal oropharynx, mucous membranes moist, TM's normal bilaterally and normal external ear exam Neck Neck exam: Present normal inspection, full ROM and trachea midline; Absent meningismus or lymphadenopathy Chest Chest inspection: Present normal inspection and symmetric chest wall rise; Absent tenderness Respiratory Respiratory exam: Present normal lung sounds bilaterally; Absent respiratory distress Cardiovascular Cardiovascular exam: Present regular rate and normal rhythm; Absent JVD Abdominal Exam Abdominal exam: Present soft and normal bowel sounds; Absent distention, tenderness or guarding Extremities Exam Extremities exam: Present normal capillary refill; Absent calf tenderness Expanded Lower Extremity Exam Right: Knee exam: Present normal inspection, full ROM and knee extension intact; Absent tenderness Lower leg exam: Present normal inspection, full ROM and Achilles tendon intact; Absent tenderness, swelling or Homans' sign Ankle exam: Present normal inspection and full ROM; Absent tenderness, swelling, abrasion, laceration, ecchymosis, deformity, crepitus, dislocation, erythema, tenderness over talofibular lig or anterior draw sign Foot/toe exam: Present full ROM and tenderness; Absent swelling, abrasion, laceration, ecchymosis, deformity, crepitus, dislocation, erythema, amputation, puncture wound, foreign body, calcaneal tenderness, tenderness at base of 5th metatarsal, nail avulsion or subungual hematoma Neurovascular/Tendon exam: Present normal capillary refill, normal 2-point discrimination and normal fine/light touch; Absent pulse deficit, motor deficit, sensory deficit, tendon deficit, extremity cold to touch or pallor Gait: observed and normal Back Exam Back exam: Present normal inspection; Absent tenderness Neurological Exam Neurological exam: Present alert and oriented X3 Psychiatric Psychiatric exam: Present normal affect and normal mood Skin Skin exam: Present warm, dry, intact and normal color Lymphatic Lymphatic Findings: no adenopathy Medical Decision Making Medical Records Medical records reviewed: No I reviewed the patient's medical records. Wali Inquiry Pt receiving controlled substance: No Lab Data Lab results reviewed: Yes I reviewed the patient's lab results. 06/03/24 12:50 06/03/24 12:50
--- NOTE | 2024-06-03 11:57 | XR_ITS ---
PROCEDURE INFORMATION: Exam: XR Right Foot Exam date and time: 06/03/2024 12:16 PM Age: 48 years old Clinical indication: Pain; Foot; Right TECHNIQUE: Imaging protocol: Radiologic exam of the right foot. Views: 3 or more views. COMPARISON: CR XR FOOT RT MIN 3V 08/09/2023 9:35 AM FINDINGS: Bones/joints: Large plantar calcaneal bone spur. Soft tissues: Normal. IMPRESSION: Large plantar calcaneal bone spur.
[2024-06-03 12:50] VITALS: BP 134/66; PULSE 92; RESP 20; TEMP 37.1; O2SAT 97
[2024-06-03 13:05] LABS: Basophils # 0.1 K/mm3 (0-0.2); Basophils % 1.1 % (0.1-2.0); Eosinophils # 0.2 K/mm3 (0.0-0.4); Eosinophils % 1.4 % (0.1-12.0); Hematocrit 43.7 % (37.0-47.0); Hemoglobin 13.7 g/dL (12.2-16.2); Lymphocytes # 3.4 K/mm3 (0.7-4.5); Lymphocytes % 30.6 % (10-50); Mean Corpuscular HGB Conc 31.4 g/dL (31.8-35.4); Mean Corpuscular Hemoglobin 31.3 pg (27.0-31.2); Mean Corpuscular Volume 99.8 fl (81-99); Mean Platelet Volume 7.5 fl (7.4-10.4); Monocytes # 0.6 K/mm3 (0.1-1.0); Neutrophils # 6.9 K/mm3 (1.8-7.8); Platelet Count 400 K/mm3 (142-424); Red Blood Count 4.38 M/mm3 (4.20-5.40); Red Cell Distribution Width 13.6 % (11.5-17.5); White Blood Count 11.1 K/mm3 (4.8-10.8)
[2024-06-03 13:12] LABS: Anion Gap 6.9 mEq/L (5-15); Blood Urea Nitrogen 11 mg/dl (7-17); Carbon Dioxide 26 mmol/L (22.0-30.0); Chloride 108 mmol/L (98-107); Creatinine Clearance Estimated 178 mL/min (50-200); Estimated Glomerular Filt Rate 106 ml/min (>60); GFR (African American) 128 ML/MIN (>60); Glucose 201 mg/dl (74-100); Potassium 3.9 mmoL/L (3.5-5.1); Sodium 137 mmol/L (136-145); Uric Acid 4.2 mg/dl (2.5-6.2)
[2024-06-03 13:34] LABS: Erythrocyte Sedimentation Rate 14 mm/hr (0-20)
== END 2024-06-03 13:03 | disposition home or self-care (01) ==
PROVIDERS: Emergency Provider Nurse Practitioner Family; PCP Physician Assistant
DX: M79.671 Pain in right foot (principal); E11.65 Type 2 diabetes mellitus with hyperglycemia; Z79.84 Long term (current) use of oral hypoglycemic drugs
CPT/HCPCS: 73630; 80048; 84550; 85025; 85651; 99212; 99214; G0463

== ENCOUNTER 2024-06-04 11:40 | Outpatient (CLI) | payer OTHER, SELFPAY ==
[2024-06-04 12:07] LABS: Basophils # 0.2 K/mm3 (0-0.2); Basophils % 1.1 % (0.1-2.0); Eosinophils # 0.1 K/mm3 (0.0-0.4); Eosinophils % 1.1 % (0.1-12.0); Hematocrit 44.6 % (37.0-47.0); Lymphocytes # 3.8 K/mm3 (0.7-4.5); Lymphocytes % 29.4 % (10-50); Mean Corpuscular HGB Conc 31.5 g/dL (31.8-35.4); Mean Corpuscular Volume 98.5 fl (81-99); Mean Platelet Volume 7.9 fl (7.4-10.4); Monocytes # 0.6 K/mm3 (0.1-1.0); Monocytes % 4.3 % (1.7-9.3); Neutrophils # 8.2 K/mm3 (1.8-7.8); Neutrophils % 64.1 % (37.0-80.0); Platelet Count 435 K/mm3 (142-424); Red Blood Count 4.53 M/mm3 (4.20-5.40); Red Cell Distribution Width 13.6 % (11.5-17.5); White Blood Count 12.8 K/mm3 (4.8-10.8)
[2024-06-04 12:40] LABS: Alanine Aminotransferase 61 U/L (12-78); Albumin Level 4.1 g/dl (3.5-5.0); Albumin/Globulin Ratio 1.4 (1.1-1.8); Alkaline Phosphatase 92 U/L (38-126); Anion Gap 9.3 mEq/L (5-15); Aspartate Amino Transferase 42 U/L (14-36); Bilirubin,Total 0.4 mg/dl (0.2-1.3); Blood Urea Nitrogen 13 mg/dl (7-17); Calcium 9.4 mg/dl (8.4-10.2); Carbon Dioxide 25 mmol/L (22.0-30.0); Chloride 107 mmol/L (98-107); Estimated Glomerular Filt Rate 59 ml/min (>60); GFR (African American) 71 ML/MIN (>60); Globulin 2.9 g/dL (1.3-3.2); Glucose 110 mg/dl (74-100); Potassium 4.3 mmoL/L (3.5-5.1); Sodium 137 mmol/L (136-145)
[2024-06-04 13:14] LABS: Erythrocyte Sedimentation Rate 13 mm/hr (0-20)
[2024-06-05 13:21] LABS: Anti-Centromere B Antibodies <0.2 AI (0.0-0.9); Anti-DNA (DS) Ab Qn <1 IU/mL (0-9); Anti-Jo-1 <0.2 AI (0.0-0.9); Anti-Smith Antibody <0.2 AI (0.0-0.9); Antichromatin Antibodies <0.2 AI (0.0-0.9); Antiscleroderma-70 Antibodies <0.2 AI (0.0-0.9); RA Latex Turbid. <10.0 IU/mL (<14.0); RNP Antibodies <0.2 AI (0.0-0.9); Sjogren's Anti-SS-A <0.2 AI (0.0-0.9); Sjogren's Anti-SS-B <0.2 AI (0.0-0.9)
[2024-06-05 15:11] LABS: Anti-Cyclic Citrullinated Pept 6 units (0-19)
== END 2024-06-04 23:59 | disposition home or self-care (01) ==
PROVIDERS: PCP Physician Assistant; Visit Provider Physician Assistant
DX: M79.671 Pain in right foot (principal); M25.571 Pain in right ankle and joints of right foot
CPT/HCPCS: 36415; 80053; 85025; 85651; 86140; 86200; 86225; 86235; 86431

== ENCOUNTER 2024-06-04 12:00 | Outpatient (RCR) | payer OTHER, SELFPAY | END 2024-06-04 13:00 | disposition home or self-care (01) | LOC: PT 12:00 | PROVIDERS: Visit Provider Physician Assistant | DX: M79.671 Pain in right foot (principal); R60.9 Edema, unspecified | CPT/HCPCS: 97760 ==

== ENCOUNTER 2024-06-13 13:51 | Outpatient (CLI) | payer OTHER, SELFPAY ==
[2024-06-13 18:01] LABS: Adenovirus,PCR Not Detected (NotDetected); Bordetella Pertussis Not Detected (NotDetected); Chlamydophila Pneumoniae, PCR Not Detected (NotDetected); Coronavirus 19, PCR Not Detected (NotDetected); Coronavirus 229E Not Detected (NotDetected); Coronavirus NL63 Not Detected (NotDetected); Coronavirus OC43 Not Detected (NotDetected); Coronovirus HKU1,PCR Not Detected (NotDetected); Human Metapneumovirus Not Detected (NotDetected); Influenza A, PCR Not Detected (NotDetected); Influenza AH1, 2009 Not Detected (NotDetected); Influenza AH1, PCR Not Detected (NotDetected); Influenza AH3,PCR Not Detected (NotDetected); Influenza B, PCR Not Detected (NotDetected); Mycoplasma Pneumoniae, PCR Not Detected (NotDetected); Parainfluenza 1, PCR Not Detected (NotDetected); Parainfluenza 2, PCR Not Detected (NotDetected); Parainfluenza 3, PCR Not Detected (NotDetected); Parainfluenza 4, PCR Not Detected (NotDetected); Respiratory Syncytial Virus Not Detected (NotDetected)
[2024-06-14 03:55] LABS: Rhinovirus/Enterovirus Detected (NotDetected)
== END 2024-06-13 23:59 | disposition home or self-care (01) ==
LOC: LAB.DROPOF 06-14 13:52
PROVIDERS: PCP Nurse Practitioner Family; Visit Provider Nurse Practitioner Family
DX: J98.8 Other specified respiratory disorders (principal); B97.89 Other viral agents as the cause of diseases classified elsewhere; Z72.0 Tobacco use
CPT/HCPCS: 87581; 87632; 87635; 87798

== ENCOUNTER 2024-06-16 13:29 | Emergency (ER) | payer OTHER, SELFPAY ==
[2024-06-16 13:35] VITALS: BP 137/69; PULSE 97; RESP 20; TEMP 36.8; O2SAT 95; BMI 33.4
--- NOTE | 2024-06-16 13:42 | EXP.UTC ---
Discharge Plan Disposition Patient Disposition: Home, Self-Care Condition: Good Prescriptions Prescriptions: New pseudoephedrine HCl [Sudogest] 30 mg tablet 30 mg PO Q6H PRN (Reason: nasal congestion) Qty: 14 0RF albuterol sulfate 90 mcg/actuation HFA aerosol inhaler 2 inh inhalation Q6H PRN (Reason: shortness of breath or wheezing) Qty: 6.7 0RF No Action celecoxib 200 mg capsule 200 mg PO DAILY promethazine-DM 6.25-15 mg/5 mL syrup 5 ml PO Q6HP PRN (Reason: Cough) atorvastatin 20 mg tablet 20 mg PO HS prednisone 20 mg tablet 20 mg PO BID lisinopril 10 mg tablet 10 mg PO DAILY ondansetron 4 mg tablet,disintegrating 4 mg translingual Q6HP PRN (Reason: Nausea And Vomiting) amoxicillin-pot clavulanate 875-125 mg tablet 1 tab PO BID escitalopram oxalate 20 mg tablet 20 mg PO DAILY Rexulti 1 mg tablet 1 mg PO DAILY Rybelsus 7 mg tablet 7 mg PO DAILY Referrals Follow up/Referrals: Janet Chapman PA [Primary Care Provider] - See instructions Clinical Impressions Clinical Impression: Otitis media Instructions Patient Instructions: DI for Otitis Media (Middle Ear Infection)-Child Print Language Print Language: Portuguese Discharge ED Provider: Janet Chapman [facility] [place] General Stated complaint: cough, sore throat, fever, headache Time Seen by Provider: 06/16/24 13:56 History of Present Illness Provider Complaint: Cough, sore throat, fever, headache x 4 days. Already on Augmentin for LOM but feeling worse. Onset (ago): day(s) (4) Relieving factors: none Exacerbating factors: none Associated symptoms: denies other symptoms Treatments prior to arrival: other (Augmentin) Related Data Home Medications ?Medication ?Instructions ?Recorded ?Confirmed amoxicillin 875 mg-potassium 1 tab PO BID 06/16/24 06/16/24 clavulanate 125 mg tablet atorvastatin 20 mg tablet 20 mg PO HS 06/16/24 06/16/24 brexpiprazole 1 mg tablet (Rexulti) 1 mg PO DAILY 06/16/24 06/16/24 celecoxib 200 mg capsule 200 mg PO DAILY 06/16/24 06/16/24 escitalopram oxalate 20 mg tablet 20 mg PO DAILY 06/16/24 06/16/24 lisinopril 10 mg tablet 10 mg PO DAILY 06/16/24 06/16/24 ondansetron 4 mg disintegrating 4 mg translingual Q6HP PRN Nausea 06/16/24 06/16/24 tablet And Vomiting prednisone 20 mg tablet 20 mg PO BID 06/16/24 06/16/24 promethazine-DM 6.25 mg-15 mg/5 mL 5 ml PO Q6HP PRN Cough 06/16/24 06/16/24 oral syrup semaglutide 7 mg tablet (Rybelsus) 7 mg PO DAILY 06/16/24 06/16/24 Previous Rx's ?Medication ?Instructions ?Recorded albuterol sulfate 90 mcg/actuation 2 inh inhalation Q6H PRN shortness 06/16/24 aerosol inhaler of breath or wheezing #6.7 grams pseudoephedrine HCl 30 mg tablet 30 mg PO Q6H PRN nasal congestion 06/16/24 (Sudogest) #14 tabs Allergies Allergy/AdvReac Type Severity Reaction Status Date / Time morphine Allergy Abdominal Verified 06/16/24 14:00 Pain cariprazine [From Vraylar] AdvReac Intermediate tics Verified 06/13/24 08:54 Opioids - Morphine Analogues AdvReac Intermediate Vomiting Verified 06/13/24 08:54 acetaminophen [From Lortab] AdvReac Unknown Verified 06/16/24 14:00 allergy reaction hydrocodone [From Lortab] AdvReac Unknown Verified 06/16/24 14:00 allergy reaction metformin AdvReac Vomiting Verified 06/16/24 14:00 PFSH PFS Disclaimer: The information contained in this section may have been updated after the patient was seen, as this information can be updated by other users. Medical History (Updated 06/16/24 @ 14:01 by SIRI Balderas) H. pylori infection Diarrhea Myalgia Chills Fever IBS (irritable bowel syndrome) Asthma Mouth ulcer Neuroforaminal stenosis of lumbar spine Herniation of lumbar intervertebral disc with radiculopathy Radicular pain of both lower extremities Lumbar canal stenosis Diabetes Neuropathy Low back pain History of rheumatic fever Uri
[2024-06-16 13:53] LABS: UTC Strep Screen (Rapid) Negative (Negative)
[2024-06-16 14:03] VITALS: BP 137/69; PULSE 97; RESP 20; TEMP 36.8; O2SAT 95
== END 2024-06-16 14:15 | disposition home or self-care (01) ==
PROVIDERS: Emergency Provider Physician Assistant; PCP Physician Assistant
DX: H66.93 Otitis media, unspecified, bilateral (principal); R50.9 Fever, unspecified; R51.9 Headache, unspecified; R07.0 Pain in throat; R05.9 Cough, unspecified
CPT/HCPCS: 87880; 96372; 99212; 99214; G0463; J0696; J1010

== ENCOUNTER 2024-06-18 13:34 | Outpatient (CLI) | payer OTHER, SELFPAY ==
--- NOTE | 2024-06-18 13:37 | XR_ITS ---
FINAL REPORT TECHNIQUE: Chest PA & Lateral CLINICAL HISTORY: shortness of air COMPARISON: 06/08/2023 FINDINGS: 2 views of the chest were performed. The heart size is normal. The mediastinum is within normal limits. There is no acute cardiopulmonary process. There are no pleural effusions. There is no pneumothorax. The bony thorax appears intact. IMPRESSION: No acute cardiopulmonary process. Reviewed, Interpreted and Dictated by Tio Silver MD Transcribed by Nahomy Manzo Authenticated and [facility]
== END 2024-06-18 23:59 | disposition home or self-care (01) ==
LOC: RAD 13:35
PROVIDERS: PCP Physician Assistant; Visit Provider Physician Assistant
DX: R06.02 Shortness of breath (principal)
CPT/HCPCS: 71046

== ENCOUNTER 2024-07-12 18:53 | Outpatient (CLI) | payer OTHER, SELFPAY | END 2024-07-12 23:59 | disposition home or self-care (01) | LOC: LAB.DROPOF 18:53 | PROVIDERS: PCP Student in an Organized Health Care Education/Training Program; Visit Provider Student in an Organized Health Care Education/Training Program | DX: J02.9 Acute pharyngitis, unspecified (principal); Z72.0 Tobacco use | CPT/HCPCS: 87070 ==

== ENCOUNTER 2024-08-08 09:45 | Outpatient (CLI) | payer OTHER, SELFPAY ==
--- NOTE | 2024-08-08 09:53 | XR_ITS ---
FINAL REPORT CLINICAL HISTORY: Left Hand trigger finger pain COMPARISON: 12/28/2022 FINDINGS: LEFT HAND Three views demonstrate no acute fracture or dislocation. There are advanced hypertrophic changes of osteoarthritis at the basilar joint. The trapezium appears flattened with hypertrophic spurring. These findings are all consistent with advanced osteoarthritis. There are small calcific or ossific fragments adjacent to the basilar joint. The soft tissues are unremarkable. 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 Reviewed, Interpreted and Dictated by Tio Silver MD Transcribed by Livier Parnell Authenticated and [facility]
== END 2024-08-08 23:59 | disposition home or self-care (01) ==
LOC: RAD 09:47
PROVIDERS: PCP Physician Assistant; Visit Provider Physician Assistant Surgical
DX: M79.642 Pain in left hand (principal); M19.042 Primary osteoarthritis, left hand
CPT/HCPCS: 73130

== ENCOUNTER 2024-08-13 10:23 | Outpatient (CLI) | payer OTHER, SELFPAY ==
--- NOTE | 2024-08-13 10:29 | MM_ITS ---
PROCEDURE INFORMATION: Exam: MG Bilateral Screening 3D Mammography Exam date and time: 08/13/2024 10:15 AM Age: 48 years old Clinical indication: Screening examination TECHNIQUE: Imaging protocol: Bilateral Screening tomosynthesis and 2D mammography including computer-aided detection (CAD) when performed. COMPARISON: 1. MG MM DIG MAMM DX UNILAT RT CAD 08/30/2023 2:35 PM 2. MG MM DIG SCREENING MAMM BI W/CAD 08/10/2023 8:21 AM FINDINGS: MAMMOGRAPHY: Breast composition: There are scattered areas of fibroglandular density. Mass: No suspicious masses. Architectural distortion: None. Calcifications: No suspicious calcifications. Asymmetric density: None. Skin thickening: None. Axillary adenopathy: None. IMPRESSION: No mammographic evidence of malignancy. Annual screening is recommended unless otherwise clinically indicated. ASSESSMENT: BI-RADS Category 1: Negative.
== END 2024-08-13 23:59 | disposition home or self-care (01) ==
LOC: RAD 10:23
PROVIDERS: PCP Physician Assistant; Visit Provider Physician Assistant
DX: Z12.31 Encounter for screening mammogram for malignant neoplasm of breast (principal)
CPT/HCPCS: 77063; 77067

== ENCOUNTER 2024-08-17 10:49 | Outpatient (CLI) | payer OTHER, SELFPAY ==
--- NOTE | 2024-08-17 11:23 | ECG_ITS ---
APPROVED REPORT Exam: Resting ECG HR:77 bpm ECG Measurements Heart Rate 77 AXES CA 162 P 61 QRSd 93 QRS 44 QT 369 T 48 QTc 400 Conclusion SINUS RHYTHM LOW QRS VOLTAGE IN PRECORDIAL LEADS [QRS DEFLECTION < 1.0 mV IN CHEST LEADS] BORDERLINE ECG UNCONFIRMED REPORT Electronically signed by : Emory Vasquez MD 08/20/2024 08:39:56
== END 2024-08-17 23:59 | disposition home or self-care (01) ==
LOC: PREOP 10:50
PROVIDERS: PCP Physician Assistant; Visit Provider Orthopaedic Surgery
DX: R94.31 Abnormal electrocardiogram [ECG] [EKG] (principal)
CPT/HCPCS: 93005

== ENCOUNTER 2024-08-20 11:26 | Day surgery (SDC) | payer OTHER, SELFPAY ==
[2024-08-17 11:19] VITALS: BMI 32.6
[2024-08-17 12:19] LABS: Basophils # 0.1 K/mm3 (0-0.2); Basophils % 0.9 % (0.1-2.0); Eosinophils # 0.1 K/mm3 (0.0-0.4); Eosinophils % 1.3 % (0.1-12.0); Hematocrit 43.9 % (37.0-47.0); Hemoglobin 14.8 g/dL (12.2-16.2); Lymphocytes # 2.5 K/mm3 (0.7-4.5); Mean Corpuscular HGB Conc 33.7 g/dL (31.8-35.4); Mean Corpuscular Hemoglobin 31.9 pg (27.0-31.2); Mean Corpuscular Volume 94.6 fl (81-99); Mean Platelet Volume 8.1 fl (7.4-10.4); Monocytes # 0.4 K/mm3 (0.1-1.0); Monocytes % 4.3 % (1.7-9.3); Neutrophils # 7.3 K/mm3 (1.8-7.8); Neutrophils % 69.6 % (37.0-80.0); Platelet Count 363 K/mm3 (142-424); Red Blood Count 4.65 M/mm3 (4.20-5.40); Red Cell Distribution Width 13.3 % (11.5-17.5); White Blood Count 10.4 K/mm3 (4.8-10.8)
[2024-08-17 12:23] LABS: Albumin Level 4.3 g/dl (3.5-5.0); Chloride 107 mmol/L (98-107); Potassium 4.2 mmoL/L (3.5-5.1); Sodium 135 mmol/L (136-145)
[2024-08-17 12:26] LABS: Alanine Aminotransferase 72 U/L (12-78); Albumin/Globulin Ratio 1.5 (1.1-1.8); Alkaline Phosphatase 76 U/L (38-126); Anion Gap 10.2 mEq/L (5-15); Aspartate Amino Transferase 58 U/L (14-36); Bilirubin,Total 0.6 mg/dl (0.2-1.3); Blood Urea Nitrogen 11 mg/dl (7-17); Calcium 8.6 mg/dl (8.4-10.2); Carbon Dioxide 22 mmol/L (22.0-30.0); Creatinine Clearance Estimated 173 mL/min (50-200); Estimated Glomerular Filt Rate 106 ml/min (>60); GFR (African American) 128 ML/MIN (>60); Globulin 2.8 g/dL (1.3-3.2); Glucose 284 mg/dl (74-100); Total Protein,Serum 7.1 g/dl (6.3-8.2)
[2024-08-20 12:12] VITALS: BP 155/98; PULSE 82; RESP 18; TEMP 36.9; O2SAT 98; BMI 32.6
--- NOTE | 2024-08-20 12:13 | EXP.ANES.CKL ---
[facility] Disclaimer: The information contained in this section may have been updated after the patient was seen, as this information can be updated by other users. Medical History H. pylori infection Diarrhea Myalgia Chills Fever IBS (irritable bowel syndrome) Asthma Mouth ulcer Neuroforaminal stenosis of lumbar spine Herniation of lumbar intervertebral disc with radiculopathy Radicular pain of both lower extremities Lumbar canal stenosis Diabetes Neuropathy Low back pain History of rheumatic fever Urinary incontinence Hyperlipidemia Fibromyalgia Hypertension Perioral dermatitis Vitamin D deficiency (~08/19/18) Hand pain, left Depression Surgical History History of section History of hand surgery CMC joint bilateral History of hysterectomy partial H/O lumbar discectomy Family History Other Diabetes FHx: mental illness Family history of cancer Hyperlipidemia Hypertension Social History Smoking Status: Current every day smoker tobacco type: cigarettes packs per day: 1 second hand exposure: Yes alcohol intake: current alcohol intake frequency: holidays/special occasions only substance use type: denies use current occupational status: unemployed Travel in the last 8 weeks: None household members: spouse housing: house current occupational exposures/hazards: No caffeine: Yes [facility] Anesthesia Checklist Patient Identification Patient Identification: Arm Band Structural Data Admitted From: Home Planned Operative Procedure/s: Left Middle Finger Trigger Finger Release Consent for Planned Operative Procedure(s) Verified: Yes Verified Documents: Surgical Consent and History and Physical NPO Status Verified Time NPO: 00:00 Additional verifications Anesthesia Reactions: No Hx Blood Transfusions: No Blood Transfusion Reaction: No Cephalosporin Allergy: No Airway Assessment Mallampati Score:: Class II C-Spine Mobility Assessed: Yes TMJ Mobility Assessed: Yes Dentition: Dentures-good fit (upper denture removed) Neurological Assessment Level of Consciousness: Awake, Alert and Appropriate Anesthesia Plan Anesthesia Risk discussed: Yes Anesthesia Plan: Verified ASA Class: II Anesthesia Type: MAC
[2024-08-20] MEDS: LACTATED RINGERS 1000ML 1,000 ML 25 ML IV (12:21)
[2024-08-20] MEDS: CEFAZOLIN SODIUM 2 GM in 0.9 % SODIUM CHLORIDE 100 ML IV (12:33)
[2024-08-20] MEDS: LIDOCAINE 1% W/EPI 1:100,000 20ML VIAL 20 ML (12:53)
--- NOTE | 2024-08-20 13:11 | EXP.OP.NOTE ---
Date of procedure: 08/20/24 Pre-op Diagnosis:: Left middle finger trigger finger Post-op Diagnosis:: Same Procedure performed:: Left endoscopic carpal tunnel release Surgeon:: Bernardino Nevarez DO COMMERCIAL RETOUCHER:: Saturnino Mcdaniel Anesthesia: MAC and local Estimated blood loss (mL): 0 Operative findings:: See dictation Operative note:: Patient was identified preoperatively. Left middle finger was marked with yes and my initials. Her left middle finger was stuck and flexion and triggered. Taken the operating room placed upon operating bed given sedation left upper extremity was then prepped and draped in normal sterile fashion. Once prepped and draped final operative timeout performed to identify proper patient procedures and extremity. Everyone involved the case agreed. Is no counter indication beginning. Did receive preoperative antibiotics. Marking pen was used to make planned incision over the A1 carly of the middle finger. Esmarch was used to exsanguinate the extremity pneumatic tourniquet inflated to 250 mmHg. Skin knife is used to incise through skin dissection was taken down with scissors and blunt dissection with the retractors were performed to expose the A1 carly of the middle finger. Small incision with a [place] blade was made with an A1 carly and the carly was released proximally and distally with scissors. Tendons were brought outside the skin to make sure that no adherence or residual triggering. Of note there is a large cyst around the A1 carly which was ruptured and some mild swelling of the tendons at the A1 carly. Which with passive flexion caused some clicking but no triggering. Irrigation wound performed. Skin closed with nylon stitch sterile hand dressing placed. Patient taken to recovery stable condition Condition: stable Disposition: PACU Complications:: None apparent
[2024-08-20 13:20] VITALS: BP 132/76; PULSE 63; RESP 16; TEMP 36.6; O2SAT 96
[2024-08-20 13:30] VITALS: BP 107/70; PULSE 80; RESP 16; O2SAT 98
[2024-08-20 13:40] VITALS: BP 146/81; PULSE 82; RESP 16; O2SAT 96
[2024-08-20 13:50] VITALS: BP 126/78; PULSE 80; RESP 16; O2SAT 98
[2024-08-21 06:20] LABS: POC Glucose,Bedside 108 (70-110)
== END 2024-08-20 13:55 | disposition home or self-care (01) ==
PROVIDERS: Nurse Anesthetist, Certified Registered; PCP Physician Assistant; Visit Provider Orthopaedic Surgery
PROC: (CPT 26055; principal; 2024-08-20 13:00)
DX: M65.332 Trigger finger, left middle finger (principal)
CPT/HCPCS: 26055; 80053; 82962; 85025; 96374; J0690; J2250; J7120

== ENCOUNTER 2024-08-22 11:28 | Emergency (ER) | payer OTHER, SELFPAY ==
[2024-08-22 11:27] VITALS: BP 153/68; PULSE 82; O2SAT 96
[2024-08-22 11:28] VITALS: BP 153/68; PULSE 87; RESP 18; TEMP 36.8; O2SAT 98; BMI 33.5
[2024-08-22 11:30] VITALS: BP 134/67; PULSE 80; O2SAT 95
--- NOTE | 2024-08-22 11:33 | MR_ITS ---
PROCEDURE INFORMATION: Exam: MR Lumbar Spine Without and With Contrast Exam date and time: 08/22/2024 12:16 PM Age: 48 years old Clinical indication: Other: New incontinence; Prior surgery; Surgery date: 6+ months; Surgery type: Lower back x 2; Additional info: History of lumbar surgeries, new incontinence TECHNIQUE: Imaging protocol: Magnetic resonance imaging of the lumbar spine without and with contrast. Contrast material: PROHANCE; Contrast volume: 20 ml; Contrast route: IV; COMPARISON: No relevant prior studies available. FINDINGS: Bones/joints: Vertebral body height, alignment and overall marrow signal are within normal limits. The patient is post right L4 laminotomy. Multilevel spondylosis is noted with disc bulging, facet arthropathy and ligamentous thickening. Spinal cord: Visualized cord, conus medullaris and cauda equina are unremarkable without compression. L1-L2: No significant disc bulge or herniation. No severe spinal canal stenosis. No significant neural foraminal narrowing. L2-L3: At L2-L3 there is mild disc bulging and facet arthropathy causing minor canal narrowing and [id number] neural foraminal stenosis, worse on the right. L3-L4: At L3-L4 there is no significant canal narrowing and [id number]-[id number] neural foraminal stenosis, worse on the right. L4-L5: At L4-L5 there is broad-based disc bulge with facet arthropathy and LF thickening causing moderate to severe canal stenosis with crowding of nerve roots and moderate to severe neural foraminal stenosis. L5-S1: At L5-S1 there is disc bulging with facet arthropathy causing concentric narrowing canal the tapering thecal sac with crowding of nerve roots. There is moderate to severe neural foraminal stenosis, worse on the left. Soft tissues: Unremarkable. IMPRESSION: Degenerative and postsurgical change in the lumbar spine.
--- NOTE | 2024-08-22 11:49 | PC.NURSE ---
SPOKE WITH RAVINDRA FROM CARE MANAGEMENT, APPROVES MRI
--- NOTE | 2024-08-22 11:56 | PC.NURSE ---
PT PLACED IN GOWN FOR MRI
--- NOTE | 2024-08-22 12:05 | PC.NURSE ---
pt in mri
--- NOTE | 2024-08-22 12:12 | ED_ITS ---
Discharge Plan Disposition Patient Disposition: Home, Self-Care Prescriptions Prescriptions: No Action fluticasone propionate [Allergy Relief (fluticasone)] 50 mcg/actuation spray,suspension 1 spray intranasal DAILY Qty: 16 2RF Rx Instructions: administer into each nostril celecoxib 200 mg capsule 200 mg PO DAILY atorvastatin 20 mg tablet 20 mg PO HS lisinopril 10 mg tablet 10 mg PO DAILY escitalopram oxalate 20 mg tablet 20 mg PO DAILY Rexulti 1 mg tablet 1 mg PO DAILY albuterol sulfate 90 mcg/actuation HFA aerosol inhaler 2 inh inhalation Q6H PRN (Reason: shortness of breath or wheezing) Qty: 6.7 0RF Ozempic 0.25 mg or 0.5 mg (2 mg/3 mL) pen injector 0.25 mg SQ WEEKLY tramadol 50 mg tablet 50 mg PO Q6H PRN (Reason: Postop pain) Qty: 20 0RF Referrals Follow up/Referrals: Elana Bright APRN [Primary Care Provider] - See instructions Activity Restrictions/Add. Instructions Additional Instructions/Restrictions: Call your family doctor to establish care for this visit to the emergency department and schedule follow-up within 48 hours to ensure improvement. If you have any worsening of your condition or any other concerning signs or symptoms, return to the emergency department or your primary care doctor for further evaluation. Clinical Impressions Clinical Impression: Bladder incontinence Back pain Qualifiers: Back pain location: low back pain Chronicity: acute Back pain laterality: m idline Sciatica presence: with sciatica Instructions Patient Instructions: DI for Low Back Pain Print Language Print Language: Yakut Discharge ED Provider: Riky Chaves General Adult HPI General Chief complaint: Back Pain/Injury Stated complaint: Back Pain Time Seen by Provider: 08/22/24 11:33 Mode of Arrival: Ambulatory Source of Information: Patient Limitations: No Limitations Description of Symptoms (Recalled from ER Triage Doc. by RN): PT AMBULATORY FROM PCP. PT REPORTS WORSENING BILATERAL HIP PAIN. HAS HAD 2 PREVIOUS BACK SURGERIES. PT REPORTS CRAMPING OF BILATERAL BACK OF THIGHS, REPORTS LEAKING OF URINE. SYMPTOMS WORSENING FOR ABOUT 1 WEEK. History of Present Illness HPI narrative: Please note that above description of symptoms, in this electronic medical record under categorization of recalled from ER triage doctor by RN are reflective of an initial nursing assessment, however, is not reflective of my full history and physical exam that was personally taken and clarified. Consequentially, this preceding description of symptoms, which may include the patient's categorized chief complaint in the EMR, do not reflect my personal clinical impression, and the ultimate description of history of present illness and patient stated complaints should be deferred to this section of the note. Unless stated otherwise or congruent with this section of the note, additional signs, symptoms, or incongruence should be interpreted as inaccurate with my clinical impression. Related Data Home Medications ?Medication ?Instructions ?Recorded ?Confirmed atorvastatin 20 mg tablet 20 mg PO HS 06/16/24 08/22/24 brexpiprazole 1 mg tablet (Rexulti) 1 mg PO DAILY 06/16/24 08/22/24 celecoxib 200 mg capsule 200 mg PO DAILY 06/16/24 08/22/24 escitalopram oxalate 20 mg tablet 20 mg PO DAILY 06/16/24 08/22/24 lisinopril 10 mg tablet 10 mg PO DAILY 06/16/24 08/22/24 semaglutide 0.25 mg or 0.5 mg (2 0.25 mg SQ WEEKLY 08/17/24 08/22/24 mg/3 mL) subcutaneous pen injector (Ozempic) Previous Rx's ?Medication ?Instructions ?Recorded albuterol sulfate 90 mcg/actuation 2 inh inhalation Q6H PRN shortness 06/16/24 aerosol inhaler of breath or wheezing #6.7 grams fluticasone propionate 50 1 spray intranasal DAILY #16 grams 07/12/24 mcg/actuation nasal spray,suspension (Allergy Relief (fluticasone)) tramadol 50 mg tablet 50 mg PO Q6H PRN Postop pain #20 08/20/24 tabs Allergies Allergy/AdvReac Type Severity Reaction Status Date / Time morphine Allergy Abdominal Verified 08/22/24 10:43 Pain cariprazine [From Vraylar] AdvReac Intermediate tics Verified 08/22/24 10:43 Opioids - Morphine Analogues AdvReac Intermediate Vomiting Verified 08/22/24 10:43 acetaminophen [From Lortab] AdvReac Unknown Verified 08/22/24 10:43 allergy reaction hydrocodone [From Lortab] AdvReac Unknown Verified 08/22/24 10:43 allergy reaction metformin AdvReac Vomiting Verified 08/22/24 10:43 PFSH PFSH Disclaimer: The information contained in this section may have been updated after the patient was seen, as this information can be updated by other users. Medical History (Updated 08/22/24 @ 13:57 by Riky Chaves MD) Nasal congestion Piriformis syndrome Back pain Left otitis media Viral respiratory illness Otitis media H. pylori infection Diarrhea Myalgia Chills Fever IBS (irritable bowel syndrome) Asthma Mouth ulcer Neuroforaminal stenosis of lumbar spine Herniation of lumbar intervertebral disc with radiculopathy Radicular pain of both lower extremities Lumbar canal stenosis Diabetes Neuropathy Low back pain History of rheumatic fever Urinary incontinence Hyperlipidemia Fibromyalgia Hypertension Perioral dermatitis Vitamin D deficiency (~08/19/18) Hand pain, left Depression Surgical History History of section History of hand surgery History of hysterectomy H/O lumbar discectomy Family History Other Diabetes FHx: mental illness Family history of cancer Hyperlipidemia Hypertension Social History Smoking Status: Current every day smoker tobacco type: cigarettes packs per day: 1 second hand exposure: Yes alcohol intake: current alcohol intake frequency: holidays/special occasions only substance use type: denies use current occupational status: unemployed Travel in the last 8 weeks: None household members: spouse housing: house current occupational exposures/hazards: No caffeine: Yes Other Medical History Have you received the Flu Vaccine for this season: Yes Have you received the Pneumonia Vaccine: No ROS Obtained: Yes All systems reviewed & no additional complaints except as documented Physical Exam General General appearance: alert Head Head exam: atraumatic and normocephalic Eye Eye exam: Present normal appearance, PERRL and EOMI Neck Neck exam: Present normal inspection, full ROM and trachea midline Respiratory Respiratory exam: Absent respiratory distress, wheezes, stridor, accessory muscle use or prolonged expiratory phase Cardiovascular Cardiovascular exam: Present other (Pulses equal symmetric in upper and lower extremities) Abdominal Exam Abdominal exam: Present soft; Absent distention, tenderness or pulsatile mass Extremities Exam Extremities exam: Absent edema Back Exam Back exam: Present tenderness Neurological Exam Neurological exam: Present alert, oriented X3, CN II-XII intact and motor sensory deficit (Subjective decrease sensation L5, S1, saddle anesthesia); Absent normal gait (Antalgic) Skin Skin exam: Present warm and dry; Absent diaphoresis or erythema Medical Decision Making Medical Records Medical records reviewed: Yes I reviewed the patient's medical records. Screening: Per USPSTF and CDC recommendations, given the prevalence of disease in our region, it is our hospital?s policy to screen for HIV and viral Hepatitis for all patients aged 18 and over and those with ongoing risk factors. Wali Inquiry Pt receiving controlled substance: No Wali was queried for this patient: No Vital Signs: 08/22/24 11:27 08/22/24 11:28 08/22/24 11:30 Temperature 98.2 F Temperature Source Oral Pulse Rate 82 80 Pulse Rate [Radial] 87 Respiratory Rate 18 Blood Pressure 153/68 H 134/67 Blood Pressure [Right Arm] 153/68 H Blood Pressure Mean [Right Arm] 96 Blood Pressure Source [Right Arm] Automatic Cuff Blood Pressure Position [Right Arm] Sitting 02 Sat by Pulse Oximetry 96 98 95 Oxygen Delivery Method Room Air 08/22/24 14:00 Temperature Temperature Source Pulse Rate 80 Pulse Rate [Radial] Respiratory Rate Blood Pressure 134/67 Blood Pressure [Right Arm] Blood Pressure Mean [Right Arm] Blood Pressure Source [Right Arm] Blood Pressure Position [Right Arm] 02 Sat by Pulse Oximetry 95 Oxygen Delivery Method Room Air Lab Data Lab Results 08/22/24 11:55: Urine Color Yellow, Urine Appearance Clear, Urine pH 6.0, Ur Specific [place] <= 1.005, Urine Protein Negative, Urine Glucose (UA) Negative, Urine Ketones Negative, Urine Blood Negative, Urine Nitrate Negative, Urine Bilirubin Negative, Urine Urobilinogen 0.2, Ur Leukocyte Esterase Negative, Urine RBC None, Urine WBC Occasional, Ur Squamous Epith Cells Occasional, Urine Bacteria Trace 08/22/24 12:00: WBC 13.9 H, RBC 4.65, Hgb 14.3, Hct 43.6, MCV 93.8, MCH 30.7, MCHC 32.7, RDW 13.0, Plt Count 371, MPV 7.2 L, Neut % (Auto) 70.3, Lymph % (Auto) 22.9, [place] % (Auto) 4.9, Eos % (Auto) 1.2, Baso % (Auto) 0.7, Neut # (Auto) 9.8 H, Lymph # (Auto) 3.2, [place] # (Auto) 0.7, Eos # (Auto) 0.2, Baso # (Auto) 0.1, Sodium 137, Potassium 4.0, Chloride 106, Carbon Dioxide 24, Anion Gap 11.0, BUN 10, Creatinine 0.80, Estimated Creat Clear 133, Estimated GFR 76, Est GFR ( Amer) 92, Glucose 104 H, Calcium 8.8, Total Bilirubin 0.4, AST 62 H, ALT 86 H, Alkaline Phosphatase 98, Total Protein 7.3, Albumin 4.2, Globulin 3.1, Albumin/Globulin Ratio 1.4 08/22/24 12:00 08/22/24 12:00 Orders (Tests/Meds): ED MEDICATIONS Discontinued Medications Generic Name Dose Route Start Last Admin Trade Name Freq PRN Reason Stop Dose Admin Gadoteridol 20 ml 08/22/24 12:44 08/22/24 12:46 Gadoteridol Inj 20ml Syringe IV 08/22/24 12:45 20 ml ONCE ONE Administration Sodium Chloride 10 ml 08/22/24 12:44 08/22/24 12:46 Sodium Chloride 0.9% 10ml Syr (Rad Only) IV 08/22/24 12:45 10 ml ONCE ONE Administration ORDERS Category Date Time Status CBC w/Auto Diff [Complete Blood Count Auto Diff] Stat Lab 08/22/24 12:00 Completed CMP [Comprehensive Metabolic Panel] Stat Lab 08/22/24 12:00 Completed HIV (1&2) Antibody Rapid Stat Lab 08/22/24 12:00 Received Hep C Ab with Reflex to RNA Stat Lab 08/22/24 12:00 Received UA [Urinalysis and Microscopic] Stat Lab 08/22/24 11:55 Completed Medical Decision Narrative: 48-year-old female history of back osteoarthritis status post laminectomy x 2 lumbar spine presenting with new onset incontinence and numbness in her medial thighs and groin. Saw her primary care provider for this today, recommended she come to the emergency department. Patient states that she has been leaking, has not had large volume incontinence, but this is new over the past week or so. This is also when she started noticing the perineal anesthesia. No loss of continence of bowel. No falls, lower extremity weakness and she does not feel that her gait has changed, she just states she generally hurts when she walks. No other trauma or relevant history. History was obtained via conversation with patient. On arrival, patient hemodynamically stable, alert, oriented x4, appropriate, GCS 15, moving all extremities spontaneously, pupils equal and reactive to light. Full physical exam performed and significant for well- appearing female no acute distress. Subjective decrease sensation in perineum, medial aspect of both thighs proximally. 1+ reflexes bilaterally in patellar and Achilles. Strength intact 5 out of 5 bilaterally. Differential includes cauda equina, conus medullaris, osteoarthritis, epidural hematoma, epidural abscess, among others. Patient placed on continuous cardiac monitoring and continuous pulse ox with initial blood pressure 153/68, heart rate 82, saturation 96% on room air. Patient offered meds, but not in any acute distress or pain, so declined at this time. Workup independently interpreted and significant for nonactionable CBC or chemistry, urinalysis negative. On independent interpretation of imaging, no acute spinal cord compression. See radiology read for full review of final results. On reevaluation, patient resting comfortably. Given patient presentation, workup, history, this most likely represents acute on chronic back pain with urinary incontinence. Because patient at baseline without signs or symptoms of clinical decompensation, deemed appropriate for discharge. Results were relayed to patient who voiced understanding and were agreeable to outpatient management and follow up. I discussed my clinical impression with patient and answered all questions. At this time, the evidence for any other entities in the differential is insufficient to warrant any further testing or ED observation. This was explained as well. Advisory was given that persistent or worsening symptoms require further evaluation. I confirmed the understanding of this discussion. Close return precautions discussed Electric Motor Mechanic disclaimer Much of this encounter note is an electronic emergency communications officer spoken language to printed text. Electronic emergency communications officer of the spoken language may permit errors. Although I have reviewed the note, some errors may still exist. Critical Care Critical Care Time Critical Care Time: No
[2024-08-22 12:13] LABS: Basophils # 0.1 K/mm3 (0-0.2); Basophils % 0.7 % (0.1-2.0); Eosinophils # 0.2 K/mm3 (0.0-0.4); Eosinophils % 1.2 % (0.1-12.0); Hematocrit 43.6 % (37.0-47.0); Hemoglobin 14.3 g/dL (12.2-16.2); Lymphocytes # 3.2 K/mm3 (0.7-4.5); Lymphocytes % 22.9 % (10-50); Mean Corpuscular HGB Conc 32.7 g/dL (31.8-35.4); Mean Corpuscular Hemoglobin 30.7 pg (27.0-31.2); Mean Corpuscular Volume 93.8 fl (81-99); Mean Platelet Volume 7.2 fl (7.4-10.4); Monocytes # 0.7 K/mm3 (0.1-1.0); Monocytes % 4.9 % (1.7-9.3); Neutrophils # 9.8 K/mm3 (1.8-7.8); Neutrophils % 70.3 % (37.0-80.0); Platelet Count 371 K/mm3 (142-424); Red Blood Count 4.65 M/mm3 (4.20-5.40); White Blood Count 13.9 K/mm3 (4.8-10.8)
[2024-08-22 12:25] LABS: Albumin Level 4.2 g/dl (3.5-5.0); Chloride 106 mmol/L (98-107); Sodium 137 mmol/L (136-145)
[2024-08-22 12:28] LABS: Alanine Aminotransferase 86 U/L (12-78); Albumin/Globulin Ratio 1.4 (1.1-1.8); Alkaline Phosphatase 98 U/L (38-126); Aspartate Amino Transferase 62 U/L (14-36); Bilirubin,Total 0.4 mg/dl (0.2-1.3); Blood Urea Nitrogen 10 mg/dl (7-17); Calcium 8.8 mg/dl (8.4-10.2); Carbon Dioxide 24 mmol/L (22.0-30.0); Creatinine Clearance Estimated 133 mL/min (50-200); Estimated Glomerular Filt Rate 76 ml/min (>60); GFR (African American) 92 ML/MIN (>60); Globulin 3.1 g/dL (1.3-3.2); Glucose 104 mg/dl (74-100); Total Protein,Serum 7.3 g/dl (6.3-8.2)
[2024-08-22] MEDS: SODIUM CHLORIDE 0.9% 10ML SYR (RAD ONLY) 10 ML IV (12:46)
[2024-08-22] MEDS: GADOTERIDOL INJ 20ML SYRINGE 20 ML IV (12:46)
--- NOTE | 2024-08-22 13:15 | PC.NURSE ---
PT RETURNED FROM MRI
[2024-08-22 13:47] LABS: Microscopic, Urine URINE MICROSCOPIC (MICROSCOPIC)
[2024-08-22 13:56] LABS: Appearance,Urine CLEAR (Clear); Bilirubin,Urine Negative (Negative); Blood, Urine Negative (Negative); Color,Urine YELLOW (Yellow); Glucose,Urine (UA) Negative (Negative); Ketones,Urine Negative (Negative); Leukocyte Esterase,Urine Negative (Negative); Nitrate,Urine Negative (Negative); Protein,Urine Negative (Negative); Specific Gravity, Urine <= 1.005 (1.005-1.030); Urobilinogen,Urine 0.2 EU/dl (0.2)
--- NOTE | 2024-08-22 13:56 | PC.NURSE ---
DR NIELSEN AT BEDSIDE TO UPDATE PT
[2024-08-22 14:00] VITALS: BP 134/67; PULSE 80; O2SAT 95
--- NOTE | 2024-08-22 14:13 | PC.NURSE ---
PT UPDATED ON POC, NO NEEDS AT THIS TIME. CALL LIGHT WITHIN REACH
[2024-08-22 14:31] LABS: Bacteria,Urine Trace /lpf; Squamous Epithelial Cell,Urine Occasional #/hpf (0-5); WBC,Urine Occasional #/hpf (0-3)
[2024-08-22 14:50] VITALS: BP 148/85; PULSE 82; RESP 18; TEMP 36.8; O2SAT 98
[2024-08-22 16:44] LABS: HIV (1&2) Antibody Rapid NONREACTIVE (NONREACTIVE)
[2024-08-23 05:25] LABS: HCV Ab Non Reactive (Non Reactive)
== END 2024-08-22 14:52 | disposition home or self-care (01) ==
PROVIDERS: Emergency Provider Emergency Medicine; PCP Nurse Practitioner Family
DX: M54.40 Lumbago with sciatica, unspecified side (principal); R32 Unspecified urinary incontinence; M25.551 Pain in right hip; M25.552 Pain in left hip
CPT/HCPCS: 72158; 80053; 81001; 85025; 86803; 87389; 99285; A9576

== ENCOUNTER 2024-10-23 14:00 | Outpatient (RCR) | payer OTHER, SELFPAY | END 2024-10-23 23:59 | disposition home or self-care (01) | LOC: PT 14:00 | PROVIDERS: PCP Nurse Practitioner Family; Visit Provider Neurological Surgery | DX: M54.50 Low back pain, unspecified (principal) | CPT/HCPCS: 97014; 97110; 97163; 97530; G0283 ==

== ENCOUNTER 2024-12-26 09:21 | Outpatient (CLI) | payer OTHER, SELFPAY ==
--- NOTE | 2024-12-26 09:25 | XR_ITS ---
FINAL REPORT CLINICAL HISTORY: PAIN..no truama COMPARISON: 08/09/2023 FINDINGS: RIGHT FOOT Three views were obtained. There is no fracture or dislocation. There are mild degenerative changes of the hindfoot. Mild calcaneal spurring is identified. No soft tissue abnormality is identified. IMPRESSION: Degenerative changes as above. Reviewed, Interpreted and Dictated by Tracie Toro MD Transcribed by Ivy Montgomery Authenticated and [facility]
== END 2024-12-26 23:59 | disposition home or self-care (01) ==
LOC: RAD 09:22
PROVIDERS: PCP Physician Assistant; Visit Provider Physician Assistant
DX: M79.671 Pain in right foot (principal)
CPT/HCPCS: 73630

== ENCOUNTER 2025-01-21 13:12 | Outpatient (CLI) | payer OTHER, SELFPAY ==
--- NOTE | 2025-01-21 13:13 | XR_ITS ---
FINAL REPORT CLINICAL HISTORY: L hip pain FINDINGS: LEFT HIP: Two views of the left hip demonstrate no acute fracture or dislocation. There are mild degenerative changes. No soft tissue abnormality is seen. IMPRESSION: Degenerative changes with no acute bony abnormality. Reviewed, Interpreted and Dictated by Tracie Toro MD Transcribed by Tawanna Rosario Authenticated and [facility]
== END 2025-01-21 23:59 | disposition home or self-care (01) ==
LOC: RAD 13:13
PROVIDERS: PCP Physician Assistant; Visit Provider Student in an Organized Health Care Education/Training Program
DX: M25.552 Pain in left hip (principal)
CPT/HCPCS: 73502

== ENCOUNTER 2025-02-13 09:06 | Outpatient (CLI) | payer OTHER, SELFPAY ==
--- NOTE | 2025-02-13 09:13 | US_ITS ---
Ultrasound Sonograher: PROCEDURE: US TRANSVAGINAL CLINICAL INDICATION: PELVIC AND PERINEAL PAIN COMPARISON: No exams were available for comparison FINDINGS: Transvaginal sonographic images of the pelvis were obtained. UTERUS: Surgically absent The vaginal cuff is intact. LEFT OVARY: Not visualized RIGHT OVARY: Not visualized There was post residual urine seen in the bladder. There appear to be bladder wall thickening as well as excrescences. Both ovaries were not seen There is no fluid in the cul-de-sac. IMPRESSION: 1. The uterus is surgically absent. The vaginal vault appears intact. 2. The ovaries were not visualized and we attempted transvaginally and transabdominally. 3. There was posterior residual urine in the bladder. The bladder wall had an unusual appearance and was somewhat thickened. There were excrescences all around the bladder wall. 4. Suggest a urological consult. Dictated by: Misbah James MD 02/14/2025 04:17 Misbah James MD in OV 02/14/2025 04:17
== END 2025-02-13 23:59 | disposition home or self-care (01) ==
LOC: RAD 09:07
PROVIDERS: Visit Provider Physician Assistant
DX: R10.2 Pelvic and perineal pain (principal)
CPT/HCPCS: 76830

== ENCOUNTER 2025-02-19 07:04 | Outpatient (CLI) | payer OTHER, SELFPAY ==
--- NOTE | 2025-02-19 07:06 | CT_ITS ---
FINAL REPORT TECHNIQUE: Axial images through the abdomen and pelvis were performed without contrast. This study was performed with techniques to keep radiation doses as low as reasonably achievable, (ALARA). Individualized dose reduction techniques using automated exposure control or adjustment of mA and/or kV according to the patient's size were employed. CLINICAL HISTORY: PELVIC PAIN FINDINGS: Abdomen: The lung bases are clear. There is extensive fatty infiltration of the liver. There is a contracted and relatively high density gallbladder with several stones. There are calcified granulomas in the spleen. The pancreas, adrenals and kidneys are unremarkable. Pelvis: The urinary bladder is unremarkable. There are scattered diverticuli throughout the sigmoid colon. The appendix is not visualized. There is no pelvic mass or inflammation. Streak artifact is seen from fusion hardware bridging L4-5. There are advanced hypertrophic changes of degenerative disc disease with high-grade bilateral neuroforaminal narrowing. IMPRESSION: Probable stone filled gallbladder. Recommend right upper quadrant ultrasound. Reviewed, Interpreted and Dictated by Tio Silver MD Transcribed by Ivy Montgomery Authenticated and [facility]
--- NOTE | 2025-02-19 07:23 | CT_ITS ---
FINAL REPORT TECHNIQUE: Thin section axial CT images with coronal and sagittal reformats were performed. This study was performed with techniques to keep radiation doses as low as reasonably achievable (ALARA). Individualized dose reduction techniques using automated exposure control or adjustment of mA and/or kV according to the patient''s size were employed. CLINICAL HISTORY: PAIN FINDINGS: There is a small plantar spur. The mortise is intact. There is a tiny os trigonum measuring 4 mm. Small cystic structure is seen in the anterior calcaneus measuring 1 cm in diameter. There is a small ossific density along the dorsal aspect of the talonavicular joint, probably related to small intra-articular loose body. IMPRESSION: Cyst in the calcaneus. Probable intra-articular loose body along the dorsal aspect of the talonavicular joint. Tiny os trigonum. Reviewed, Interpreted and Dictated by Tio Silver MD Transcribed by Ivy Montgomery Authenticated and [facility]
== END 2025-02-19 23:59 | disposition home or self-care (01) ==
PROVIDERS: PCP Physician Assistant; Visit Provider Physician Assistant
DX: R10.2 Pelvic and perineal pain (principal); M79.671 Pain in right foot; S93.401A Sprain of unspecified ligament of right ankle, initial encounter; S96.911A Strain of unspecified muscle and tendon at ankle and foot level, right foot, initial encounter
CPT/HCPCS: 73700; 74176

== ENCOUNTER 2025-02-25 07:55 | Outpatient (CLI) | payer OTHER, SELFPAY ==
--- NOTE | 2025-02-25 07:58 | US_ITS ---
FINAL REPORT TECHNIQUE: Sonographic images of the right upper quadrant were obtained. CLINICAL HISTORY: CALCULUS OF GALLBLADDER W/OUT CHOLECYSTITIS COMPARISON: None FINDINGS: PANCREAS: Unremarkable. LIVER: Fatty infiltrated. No focal hepatic lesion. No intrahepatic biliary ductal dilatation. GALLBLADDER: No gallstones. No gallbladder wall thickening or pericholecystic fluid. COMMON DUCT: 3 mm. Normal for age. RIGHT KIDNEY: The right kidney measures 10.9 cm. There is no hydronephrosis, mass, or stone. FREE FLUID: None. IMPRESSION: No gallstones. Fatty liver. Reviewed, Interpreted and Dictated by Kavya Lew MD Transcribed by Cielo Parisi Authenticated and [facility]
== END 2025-02-25 23:59 | disposition home or self-care (01) ==
LOC: RAD 07:56
PROVIDERS: PCP Physician Assistant; Visit Provider Physician Assistant
DX: K80.20 Calculus of gallbladder without cholecystitis without obstruction (principal)
CPT/HCPCS: 76705

== ENCOUNTER 2025-04-08 15:36 | Outpatient (CLI) | payer OTHER, SELFPAY ==
--- OUTSIDE RECORDS SUMMARY | 2025-02-06 14:56 | XMS_ITS | Encounter Summary ---
Author Organization [facility] Address [address] [place] [address] Care Team Providers Care Injection Molder Name Role Phone Janet Chapman Primary Care Provider [phone] Clarenec Rubin MD Unavailable Frankie Dalton MD Unavailable [phone] Frankie Dalton MD Unavailable [phone] Celi Murrell Unavailable [phone] Norberto West MD Unavailable [phone] Encounter Details Date Type Department Care Team (Latest Contact Info) Description 02/06/2025 2:56 PM EDT - 02/06/2025 11:59 PM EDT Hospital Encounter [facility] [address] [place] [address] Status post lumbar spinal fusion Discharge Disposition: Home or Self Care Social History Tobacco Use Types Packs/Day Years Used Date Smoking Tobacco: Former Cigarettes 1.1 40 Q uit: 2023 Smokeless Tobacco: Never Alcohol Use Standard Drinks/Week Comments Not Currently 0 (1 standard drink = 0.6 oz pur e alcohol) maybe 2 x month Comments No Sex and Gender Information Value Date Recorded Sex Assigned at Female 11/07/2024 8:24 AM EST Legal Sex Female 8:45 PM EDT Gender Identity Not on file Sexual Orientation Not on file documented as of this encounter Medications at Time of Discharge albuterol 108 (90 Base) MCG/ACT inhaler Inhale 2 puffs every 6 hours as needed for wheezing. atorvastatin (Lipitor) 20 MG tablet Take 1 tablet (20 mg) by mouth nightly. 08/23/2018 brexpiprazole (Rexulti) 1 MG tablet tablet 1 tablet (1 mg). 06/16/2024 cholecalciferol (Vitamin D-3) 50 MCG (2000 UT) capsule 12/13/2024 ergocalciferol 1.25 MG (25033 UT) capsule Takes on Sundays02/23/2024 escitalopram (Lexapro) 20 MG tablet Take 1 tablet (20 mg) by mouth daily. fluconazole (Diflucan) 150 MG tabletIndication s:Acute cystitis without hematuria,Yeast UTI Take one po q day at onset of symptoms, may repeat day #3 if needed. 2 tablet 10/31/2024 lisinopril 10 MG tablet Take 1 tablet (10 mg) by mouth nightly. 08/21/2018 methylPREDNISolo ne (Medrol Dospak) 4 MG tabletsIndicatio ns:Status post lumbar spinal fusion,Postopera tive pain Follow schedule on package instructions 21 tablet 01/21/2025 naloxone (Narcan) 4 mg/0.1 mL nasal spray 1. Give 1 spray in nostril for no/slow breathing or cannot wake after opioid use 2. Call 911 3. Repeat in other nostril if symptoms continue 1 each 11/09/2024 Ozempic, 0.25 or 0.5 MG/DOSE, 2 MG/3ML solution pen-injector Saturdays07/30/2024 varenicline (Chantix) 1 MG tablet 2 (two) times a day. documented as of this encounter Plan of Treatment Upcoming Encounters Date Type Department Care Team (Late st Contact Info) Description 04/24/2025 1:40 PM EDT Office Visit [facility] [address] [place] [address] Norberto West MD [address] [place] [address] documented as of this encounter Procedures Procedure Name Priority Date/Time Associated Diagnosis Comments XR LUMBAR SPINE 2 OR 3 VIEWS Routine 02/06/2025 3:09 PM EDT Status post lumbar spinal fusion documented in this encounter Results * XR Lumbar Spine 2 or 3 Views (02/06/2025 3:09 PM EDT) Anatomical Region Laterality Modality Spine, L-spine Digital Radiogra phy Impressions 02/06/2025 3:26 PM EDT L4-5 posterior fusion without hardware failure or loosening. Continued severe L5-S1 discogenic disease. CRITICAL RESULT: No. COMMUNICATION: Per this written report. Drafted by Aric Romero MD on 02/06/2025 3:26 PM Final report signed by Aric Romero MD on 02/06/2025 3:26 PM Narrative 02/06/2025 3:26 PM EDT CLINICAL INDICATION: post op TECHNIQUE: XR LUMBAR SPINE 2 OR 3 VIEWS COMPARISON: 12/19/2024 FINDINGS: L4-5 posterior fusion is redemonstrated. Aortic atherosclerotic vascular calcifications. Severe L5-S1 disc space narrowing. Minimal L4-5 anterolisthesis with no abnormal motion. Procedure Note Aric Romero MD - 02/06/2025 CLINICAL INDICATION: post op TECHNIQUE: XR LUMBAR SPINE 2 OR 3 VIEWS COMPARISON: 12/19/2024 FINDINGS: L4-5 posterior fusion is redemonstrated. Aortic atherosclerotic vascularcalcifications. Severe L5-S1 disc space narrowing. Minimal L4-5anterolisthesis with no abnormal motion. IMPRESSION: L4-5 posterior fusion without hardware failure or loosening. Continuedsevere L5- S1 discogenic disease. CRITICAL RESULT: No. COMMUNICATION: Per this written report. Drafted by Aric Romero MD on 02/06/2025 3:26 PM Final report signed by Aric Romero MD on 02/06/2025 3:26 PM Norberto West MD IMG XR PROCEDURES Final Result documented in this encounter Visit Diagnoses Diagnosis Status post lumbar spinal fusion Arthrodesis status documented in this encounter Additional Health Concerns Assessment Noted Time A fall risk assessment has been complete d for the patient 02/06/2025 3:12 PM EDT A Body Mass Index follow-up plan has been documented for the patient 02/06/2025 6:10 PM EDT documented as of this encounter Care Teams Injection Molder Relationship Specialty Start Date End Date Janet Chapman PA [address] [facility] [place] [address] PCP - General 06/23/21 Clarence Rubin MD [address] [place] [address] Surgeon Neurosurgery 06/23/21 Frankie Dalton MD [address] [place] [address] Surgeon Neurosurgery 10/13/21 Frankie Dalton MD [address] [place] [address] Surgeon Neurosurgery 12/15/21 Celi Murrell PA [address] [place] [address] Physician Piano Player Neurosurgery 04/01/22 Norberto West MD [address] [place] [address] Surgeon Neurosurgery 10/29/24 documented as of this encounter
--- OUTSIDE RECORDS SUMMARY | 2025-04-08 15:39 | XMS_ITS | Continuity of Care Document ---
Author Organization [place] - [place] Address [address] [place] [address] Assessment No assessment recorded. Plan of Treatment Reminders Order Date Submit Date Provider Last Modified By Organization Details Last Modified Time Details Appointments SAME DAY ACCESS 2024 02:30P Gerhard Chapman PA-C Not available Not available Not available FOLLOW UP 2024 08:00A Gerhard Chapman PA-C Not available Not available Not available Lab HbA1c (hemoglob in A1c), blood 2024 025 [facility], [address] [facility], [place], [address], 03/11/2025 15:25:50 Referral None recorded. Procedures None recorded. Surgeries None recorded. Imaging None recorded. Medication Orders atorvasta tin 20 mg tablet [address] [facility], [address] [place] [address], [address], 03/11/2025 15:52:28 albuterol sulfate HFA 90 mcg/actua tion aerosol inhaler [address] [facility], [address] [place] [address], [place], [address], 03/11/2025 15:52:31 cholecalc iferol (vitamin D3) 50 mcg (2,000 unit) capsule [address] [facility], [address] [place] [address], PABLO Rousseau, [address], 03/11/2025 15:52:33 ergocalci ferol (vitamin D2) 1,250 mcg (50,000 unit) capsule [address] [facility], [address] [place] [address], [facility] 2, PABLO Rousseau, [address], 03/11/2025 15:52:32 Ozempic 0.25 mg or 0.5 mg (2 mg/3 mL) subcutane ous pen injector [address] [facility], [address] [place] [address], [facility] 2, PABLO Rousseau, [address], 03/11/2025 15:52:30 lisinopri l 10 mg tablet [address] [facility], [address] [place] [address], PABLO Rousseau, [address], 03/11/2025 15:52:29 escitalop tyrese 20 mg tablet [address] [facility], [address] [place] [address], [facility] 2, PABLO Rousseau, [address], 03/11/2025 15:52:27 Rexulti 1 mg tablet [address] [facility], [address] [place] [address], PABLO Rousseau, [address], 03/11/2025 15:52:28 Patient TargetsNo targets recorded. Patient Instructions Encounter Date Encounter Id Patient Instructions Last Modified By Organization Details Last Modified Time 03/11/2025 [id number] learning about type 2 diabetes [email or web address] Not available 03/11/2025 15:16:41 type 2 diabetes: care instructions Not available 03/11/2025 15:16:41 learning about mood disorders [email or web address] Not available 03/11/2025 15:51:40 Reason for Referral None Reported. Results Created Date Observation Date Name Description Value Unit Range Abnormal Flag Note LastModifiedBy Organization Detail LastModifiedTime 03/11/20 25 03/11/2025 HbA1c (hemo globi n A1c), blood HbA1c 9.7 % Not Available [place] [address] [address] [facility], [place], [address], 03/11/2025 15:13:16 02/19/20 25 02/13/2025 US, trans vagin al No observ ation record ed. [address] Scheduling Department -New Scheduling Process 1210 [facility] [address], P[place]LO Rousseau, [address], 02/18/2025 17:57:24 02/22/20 25 02/19/2025 CT, abdom en + pelvi s, w/o contr ast No observ ation record ed. [address] (Med Record) 1210 [facility] [address], P[place] Rousseau, [address], 02/21/2025 12:57:20 03/04/20 25 02/25/2025 US, franklyn lo r No observ ation record ed. [address] Scheduling Department -New Scheduling Process 1210 [facility] [address], P[place] Rousseau, [address], 03/07/2025 10:29:58 Result Notes None recorded. Problems Name Problem SNOMED Code Status Onset Date Resolution Date Notes Provider Name and Address Organization Details Recorded Time Type 2 diabetes mellitus without complicat ion 910058009 Active 2023 SIRI Stevens [address] [place] [address], [address], [employer] 13:39:01 Low back pain 115726010 Active 2023 SIRI Stevens [address] [place] [address], [address], [place] [employer] 13:38:53 Cough 38993308 Completed 202312/13/2024 SIRI Stevens [address] [place] [address], [address], [employer] 13:38:48 Depressiv e disorder 82874848 Active 2023 SIRI Stevens [address] [place] [address], [address], [employer] 13:38:51 Viral gastroent eritis 747525070 Completed 202312/13/2024 SIRI Stevens [address] [place] [address], [address], [employer] 13:38:58 Severe dry skin 794268337 Completed 202412/13/2024 SIRI Stevens [address] [place] [address], [address], [employer] 13:38:56 Vitamin D deficienc y 98660317 Active 2024 SIRI Stevens [address] [place] [address], [address], [employer] 13:39:14 Pain in right foot 414921478523 107 Active 2024 SIRI Stevens [address] [place] [address], [address] 8, [employer] 11:00:51 Pain in pelvis 13630652 Active 2024 SIRI Stevens [address] [place] [address], [address], [employer] 5 14:11:13 Mixed hyperlipi demia 189139730 Active 2024 SIRI Stevens [address] [place] [address], [address], [employer] 15:50:47 Type 2 diabetes mellitus 69928584 Active 2024 SIRI Stevens [address] [place] [address], [address], [employer] 5 17:22:21 Lumbar disc prolapse with radiculop athy 077050604 Active 2024 SIRI Stevens [address] [place] [address], [address], [employer] 15:43:38 Problem Notes None recorded. Procedures Surgical History Date Name Laterality Status Provider Name and Address Organization Details Recorded Time 12/26/19 25 Diabetic Foot Screen completed SIRI Stevens [address] [place] [address], [address], [employer] 12/25/2024 16:25:07 12/11/19 25 Diabetic Foot Screen completed SIRI Stevens [address] [place] [address], [address], [employer] 12/11/2024 17:41:57 11/08/19 25 Back Surgery completed [employer] 03/11/2025 15:11:41 08/13/20 24 Most Recent Mammogram completed [employer] 12/25/2024 10:03:46 07/24/20 03 Date of Last Pap Smear completed [employer] 07/27/2024 13:30:19 Back Surgery completed [employer] 07/27/2024 13:24:59 Caesarean Section completed [employer] 07/27/2024 13:24:59 Partial Hysterectomy completed [employer] 07/27/2024 13:24:59 Back Surgery completed [employer] 03/11/2025 15:11:48 Imaging Results None recorded. Procedure Notes None recorded. Medical Equipment None Reported. Allergies Allergen ID Allergen Name Allergen Category Reaction Reaction Severity Criticality Documentation Date Start Date Code Code System Note Provider Name and Address Organization Details Recorded Time 40377 morphine medicatio n Not available Not available Not available 04/05/2025 7052 RxNorm Joie alvarado, [employer] 14:00:02 Medications Name Sig Start Date Stop Date Status Note LastModified by Organization Details LastModified Time celecoxib 200 mg capsule TAKE 2 CAPSULES BY MOUTH ONCE DAILY 2024 active Not Available Not Available Not Avai lable cyclobenz aprine 10 mg tablet Take 1 tablet 3 times a day by oral route for 10 days. 2024 active Not Available Not Available Not Avai lable methocarb jazlyn 500 mg tablet 12/25 completed Not Available Not Available Not Available promethaz ine-DM 6.25 mg-15 mg/5 mL oral syrup 07/27 completed Not Available Not Available Not Available prednison e 10 mg tablet TAKE 1 TABLET BY MOUTH TWICE DAILY FOR 5 DAYS 03/11 completed Not Available Not Available Not Available atorvasta tin 20 mg tablet Take 1 tablet every day by oral route at bedtime for 90 days. 2024 active Not Available Not Available Not Avai lable loperamid e 2 mg capsule 07/27 completed Not Available Not Available Not Available ofloxacin 0.3 % eye drops 12/11 completed Not Available Not Available Not Available fluconazo le 150 mg tablet 12/11 completed Not Available Not Available Not Available prednison e 20 mg tablet Take 1 tablet every day by oral route as directed for 9 days. 2024 active Not Available Not Available Not Avai lable prednison e 5 mg tablet 07/27 completed Not Available Not Available Not Available sulfasala zine 500 mg tablet,de layed release Take 1 tablet twice a day by oral route as directed for 30 days, for low back pain. 12/11 completed Not Available Not Available Not Available sulfameth oxazole 800 mg-trimet hoprim 160 mg tablet 12/11 completed Not Available Not Available Not Available tramadol 50 mg tablet Take 1 tablet every 6 hours by oral route for 10 days. 2024 active Not Available Not Available Not Avai lable ondansetr on 8 mg disintegr ating tablet Place 1 tablet 3 times a day by translin gual route as needed for 10 days, for nausea/v omiting. 02/08 completed Not Available Not Available Not Available Depo-Medr ol 80 mg/mL suspensio n for injection Take 1 mL by injectio n route. 04/08 completed Not Available Not Available Not Available benzonata te 100 mg capsule TAKE 1 CAPSULE BY MOUTH THREE TIMES DAILY NEEDED FOR COUGH 04/05 completed Not Available Not Available Not Available cephalexi n 500 mg capsule 07/27 completed Not Available Not Available Not Available lisinopri l 10 mg tablet TAKE 1 TABLET BY MOUTH ONCE DAILY FOR BLOOD PRESSURE 2024 active Not Available Not Available Not Avai lable pseudoeph edrine 30 mg tablet 07/27 completed Not Available Not Available Not Available ergocalci ferol (vitamin D2) 1,250 mcg (50,000 unit) capsule Take 1 capsule every week by oral route for 90 days. 2024 active Not Available Not Available Not Avai lable prednison e 5 mg tablets in a dose pack 07/27 completed Not Available Not Available Not Available polyethyl nell glycol 3350 17 gram/dose oral powder 12/25 completed Not Available Not Available Not Available albuterol sulfate HFA 90 mcg/actua tion aerosol inhaler Inhale 2 puffs every 4 hours by inhalati on route as needed for 30 days, for cough/wh eezing. 2024 active Not Available Not Available Not Avai lable ketorolac 60 mg/2 mL intramusc ular solution Inject 2 mL by intramus cular route. 04/08 completed Not Available Not Available Not Available brompheni ramine-ps eudoephed rine-DM 2 mg-30 mg-10 mg/5 mL oral syrup 07/27 completed Not Available Not Available Not Available ondansetr on 4 mg disintegr ating tablet 07/27 completed Not Available Not Available Not Available fluticaso ne propionat e 50 mcg/actua tion nasal spray,reji pension active Not Available Not Available Not Available amoxicill in 875 mg-potass ium clavulana te 125 mg tablet TAKE 1 TABLET BY MOUTH TWICE DAILY FOR 10 DAYS 04/05 completed Not Available Not Available Not Available oxycodone 5 mg tablet 12/25 completed Not Available Not Available Not Available escitalop tyrese 20 mg tablet TAKE 1 TABLET BY MOUTH ONCE DAILY 2024 active Not Available Not Available Not Avai lable nicotine 21mg/24hr -14mg/24h r-7mg/24h r daily transderm patches,s equentl 12/11 completed Not Available Not Available Not Available Nasal Decongest ant (pseudoep hedrine) 120 mg tablet,ex tended release 07/27 completed Not Available Not Available Not Available varenicli ne tartrate 1 mg tablet active Not Available Not Available Not Available varenicli ne tartrate 0.5 mg (11)-1 mg (42) tablets in a dose pack 12/11 completed Not Available Not Available Not Available peg 3350-elec trolytes 236 gram-22.7 4 gram-6.74 gram-5.86 gram solution 07/27 completed Not Available Not Available Not Available cholecalc iferol (vitamin D3) 50 mcg (2,000 unit) capsule Take 1 capsule every day by oral route for 90 days. 2024 active Not Available Not Available Not Avai lable armodafin il 150 mg tablet 07/27 completed Not Available Not Available Not Available Senexon-S 8.6 mg-50 mg tablet 12/11 completed Not Available Not Available Not Available Rexulti 1 mg tablet TAKE 1 TABLET ORALLY DAILY FOR ANTIDEPR ESSANT 2024 active Not Available Not Available Not Avai lable naloxone 4 mg/actuat ion nasal spray 02/08 completed Not Available Not Available Not Available Rybelsus 14 mg tablet 07/27 completed Not Available Not Available Not Available Rybelsus 7 mg tablet 07/27 completed starting Ozempic Not Available Not Available Not Available Talicia 10 mg-250 mg-12.5 mg capsule,i mmediate - delay release 07/27 completed Not Available Not Available Not Available Ozempic 0.25 mg or 0.5 mg (2 mg/3 mL) subcutane ous pen injector Inject 0.25 mg every week by subcutan eous route as directed for 28 days, for diabetes , then increase to 0.5 mg. 2024 active Not Available Not Available Not Avai lable Clenpiq 10 mg-3.5 gram-12 gram/175 mL oral solution 07/27 completed Not Available Not Available Not Available Vitals Date Recorded Body height Body mass index (BMI) Body weight Body temperature Oxygen saturation Oxygen saturation in Arterial blood by Pulse oximetry Heart rate Systolic blood pressure Diastolic blood pressure Provider Name and Address Organization Details Last Updated DateTime 5 172.72 cm 36.6 kg/m2 909537. 04 g 98.3 [degF] 96 % 96 % 76 /min 122 mm[Hg] 76 mm[Hg] Pratibha [employer] 15:09:38 Social History Question Answer Notes LastModified by Organizat ion Details LastModified Time Tobacco Smoking Status Former Smoker Joie alvarado [employer] 12/11/2024 14:15:00 Do You Have An Advance Directive? No Information not available 07/27/2024 Is Your Home Air Conditioned? Yes Information not available 07/27/2024 How Many Years Have You Consumed Alcohol? 30 Information not available 07/27/2024 Do You Wear A Helmet When Biking? No Information not available 07/27/2024 Are You Blind Or Do You Have Difficulty Seeing? No Information not available 07/27/2024 What Is Your Level Of Caffeine Consumption? Heavy Information not available 07/27/2024 Are You A Caregiver? Yes Information not available 08/17/2024 What Type Of Target Setter Do You Use? None Information not available 07/27/2024 In The 14 Days Before Symptom Onset, Have You Had Close Contact With A Laboratory-confir med COVID-19 While That Case Was Ill? No Information not available 07/27/2024 In The 14 Days Before Symptom Onset, Have You Had Close Contact With A Person Who Is Under Investigation For COVID-19 While That Person Was Ill? No Information not available 07/27/2024 Have You Been To An Area Known To Be High Risk For COVID-19? No Information not available 07/27/2024 Are You Deaf Or Do You Have Serious Difficulty Hearing? No Information not available 07/27/2024 What Type Of Diet Are You Following? REGULAR Information not available 07/27/2024 How Many Days Of Moderate To Strenuous Exercise, Like A Brisk Walk, Did You Do In The Last 7 Days? 2 Information not available 07/27/2024 Have There Been Any Changes To Your Family Or Social Situation? No Information no t available 07/27/2024 Are There Any Guns Present In Your Home? Yes Information not available 07/27/2024 Which Of Your Hands Is Dominant? Right Information not available 07/27/2024 Do You Have A Medical Power Of Lasting Floorworker? No Information not available 07/27/2024 What Was The Date Of Your Most Recent Tobacco Screening? 04/08/2025 Information not available 04/08/2025 Do You Have Any Pets? Yes Information not available 07/27/2024 Do You Use Protection During Sex? No Information not available 07/27/2024 What Is Your Relationship Status? Information not available 07/27/2024 Have You Repeated Any Grades? No Information not available 07/27/2024 Do You Use Your Seat Belt Or Car Seat Routinely? Yes Information not available 07/27/2024 Are You Sexually Active? Yes Information not available 07/27/2024 Do You Have Any Siblings? 3 Information not available 07/27/2024 Do You Have Smoke And Carbon Monoxide Detectors In Your Home? Yes Information not available 07/27/2024 At What Age Did You Start Smoking Tobacco? 14 Information not available 07/27/2024 Are You Passively Exposed To Smoke? No Information no t available 07/27/2024 Are There Any Smokers In Your House? No Information not available 02/11/2025 How Much Tobacco Do You Smoke? No Information not available 12/25/2024 Do You Use Sunscreen Routinely? Yes Information not available 07/27/2024 Has Tobacco Cessation Counseling Been Provided? No Information not available 12/25/2024 On What Date Was Tobacco Cessation Counseling Provided? 04/08/2025 Information not available 04/08/2025 How Many Years Have You Smoked Tobacco? 34 Information not available 07/27/2024 Have You Recently Traveled Abroad? No Information not available 07/27/2024 Do You Have Difficulty Walking Or Climbing Stairs? No Information not available 07/27/2024 Are You Currently In School? No Information not available 08/17/2024 What Contraceptive Method Was Reported At Start Of This Visit? Female Sterilization Information not available 12/25/2024 Do You Have Any Dietary Restrictions? No Information not available 07/27/2024 How Many Days In The Past Year Have You Consumed 4 Or More Drinks? 5 Information no t available 07/27/2024 Sex: Female Functional Status Question Answer Note LastModified by Organizat ion Details LastModified Time Do you use any illicit or recreational drugs? No Information not available 07/27/2024 Do you or have you ever used any other forms of tobacco or nicotine? No Information not available 07/27/2024 What is your level of alcohol consumption? Occasional Information not available 07/27/2024 Are you currently employed? No Information not available 07/27/2024 Do you have transportation difficulties? No Information not available 07/27/2024 Are you able to walk? YESWOREST Information not available 07/27/2024 Do you have difficulty doing errands alone? No Information not available 07/27/2024 Are you able to care for yourself? Yes Information n ot available 07/27/2024 Do you have difficulty dressing or bathing? No Information not available 07/27/2024 What is your exercise level? Occasional Information not available 07/27/2024 Mental Status Question Answer Note LastModified by Organizat ion Details LastModified Time Do you feel stressed (tense, restless, nervous, or anxious, or unable to sleep at night)? [id number] Information not available 02/11/2025 Do you have difficulty concentrating, remembering or making decisions? No Information no t available 07/27/2024 Are you or have you been involved with bullying? No Information not available 07/27/2024 Family History Relationship Description Onset Age of this Age Resolved Age Notes LastModified by Organization Details LastModified Time Mother Felipe jeter Not available 2023 13:24:58 Mother Anxiety disorder Not available 2023 13:24:58 Mother Malignant tumor of breast Not available 2023 13:24:58 Mother Arthritis Not available 07/27/2024 13:24:58 Mother Hypertensive disorder Not available 2023 13:24:58 Mother Heart disease Not available 2023 13:24:58 Mother Diabetes mellitus Not available 2023 13:24:58 Mother Kidney disease Not available 2023 13:24:58 Maternal Grandfather Malignant tumor of colon Not available 2023 13:24:58 Father Anxiety disorder Not available 2023 13:24:58 Medical History Condition Response Depression Y Anxiety Disorder Y Obesity Y Arthritis Y High Cholesterol Y Fibromyalgia Y Diabetes Y Asthma Y Hypertension Y Gynecological History Statement/Question Response Menses Monthly N HPV Vaccine N Date of Last Pap Smear 07/24/2003 Current Control Method Hysterectom y Most Recent Mammogram 08/13/2024 Age at First Child 18 Obstetrics History GPAL:G 4 P 4 0 0 4 Type Value Multiple Births 0 Full Term 4 Induced 0 Spontaneous 0 Premature 0 Living 4 Ectopics 0 Total 4 Immunizations Vaccine Type Date Status Note Provider Nam e and Address Organization Details Recorded Time Influenza, split virus, trivalent, PF 4 completed SIIR Stevens [address] [place] [address], [phone], [employer] 08/03/2024 10:54:01 Influenza, split virus, quadrivalent, preservative 7 completed Joie alvarado, [employer] 12/11/2024 14:11:46 Influenza, split virus, trivalent, PF 8 completed Joie alvarado, [employer] 12/11/2024 14:11:46 Td (adult), 2 Lf tetanus toxoid, preservative free, adsorbed 7 completed Joie alvarado, [employer] 12/11/2024 14:11:46 Influenza, split virus, quadrivalent, PF 1 completed Joie Shankar null, [employer] 12/11/2024 14:11:46 Influenza, split virus, quadrivalent, PF 2 completed Joie Shankar null, [employer] 12/11/2024 14:11:46 Influenza, split virus, quadrivalent, PF 3 completed Joie Shankar null, [employer] 12/11/2024 14:11:46 Influenza, split virus, quadrivalent, PF 0 completed Joie Shankar null, [employer] 12/11/2024 14:11:46 Past Encounters Encounter ID Performer Location Encounter Start Date Encounter Closed Date Diagnosis/Indication Diagnosis SNOMED-CT Code Diagnosis ICD10 Code Diagnosis Note [id number] SIRI Stevens [facility] [address] [place] [phone] 02/11/2025 13:40:39 02/11/2025 14:15:03 Burping 397782308 R14.2 Pain in pelvis 03335446 R10.2 [id number] SIRI Stevens [facility] [address] [place] [phone] 03/11/2025 15:00:51 03/11/2025 15:44:20 Type 2 diabetes mellitus 68936974 E11.9 Hga1c has gone up, but she was off Ozempic for a few weeks; will repeat next OV Depressive disorder 3548 9007 F32.A Vitamin D deficiency 347 42198 E55.9 Mixed hyperlipidemia 267 125513 E78.2 Essential hypertension 27465068 I10 Type 2 anshul betes mellitus without complication 610818061 E11.9 Cough 99066085 R05.9 Health Concerns Section Related Observation LastModified by Organization Detai ls LastModified Time None Recorded Concern Status LastModified by Organization Details LastModified Time None Recorded Payers Encounter Date Sequence Insurance Name Policy Number Policy Henry Covered Member ID Henry Member ID Guarantor Name 03/11/2025 1 [facility] (MEDICAID HMO) Jenny Barr [id number] Jenny [facility] Notes Date Note Type Note Provider Name and Address Organization Details Recorded Time 03/11/2025 text/html Patient presents for followup. Due for refills. Has intermittent pain in right hand. HgA1c has gone up - she had lumbar fusion roughly 6 weeks ago and was off some of her meds for a while. SIRI Stevens [address] [place] [address], [phone], [facility] [employer] 03/11/2025 17:22:47 OBGyn Episode No OBEpisode recorded.
--- OUTSIDE RECORDS SUMMARY | 2025-04-08 15:39 | XMS_ITS | Continuity of Care Document ---
Author Organization [place] - [employer] [facility] Address [address] [place] [address] Assessment No assessment recorded. Plan of Treatment Reminders Order Date Submit Date Provider Last Modified By Organization Details Last Modified Time Details Appointments SAME DAY ACCESS 2024 02:30P Gerhard Chapman PA-C Not available Not available Not available FOLLOW UP 2024 08:00A Gerhard Chapman PA-C Not available Not available Not available Lab H pylori urea breath test, co2 infrared 2024 025 [place] [facility], [address] [place] [address] Ct, [place], [address], 02/12/2025 14:13:20 Referral None recorded. Procedures None recorded. Surgeries None recorded. Imaging US, transvagi nal 2024 025 [facility] Scheduling Department -New Scheduling Process, [address] [place] [address] [place], [address], 02/18/2025 10:31:05 CT, abdomen + pelvis, w/o contrast - first available appt 2024 025 [facility] Scheduling Department -New Scheduling Process, [address] [place] [address] [place], [address], 02/21/2025 11:01:24 Medication Orders None recorded. Patient TargetsNo targets recorded. Patient InstructionsNo instructions recorded. Reason for Referral None Reported. Results Created Date Observation Date Name Description Value Unit Range Abnormal Flag Note LastModifiedBy Organization Detail LastModifiedTime 02/19/20 25 02/13/2025 US, trans vagin al No observ ation record ed. [address] Scheduling Department -New Scheduling Process [address], [place], [address], 02/18/2025 17:57:24 02/22/20 25 02/19/2025 CT, abdom en + pelvi s, w/o contr ast No observ ation record ed. [address] (Med Record) [address] [facility] [address], [place], [address], 02/21/2025 12:57:20 03/04/20 25 02/25/2025 US, franklyn lo r No observ ation record ed. [address] Scheduling Department -New Scheduling Process 12[address] [facility] [address], [place], [address], 03/07/2025 10:29:58 Result Notes None recorded. Problems Name Problem SNOMED Code Status Onset Date Resolution Date Notes Provider Name and Address Organization Details Recorded Time Type 2 diabetes mellitus without complicat ion 401033381 Active 2023 SIRI Stevens [address] [place] [address], [address], [employer] 13:39:01 Low back pain 274802242 Active 2023 SIRI Stevens [address] [place] [address], [address] 8, [employer] 13:38:53 Cough 10067851 Completed 202312/13/2024 SIRI Stevens [address] [place] [address], [address]65[address] 8, [employer] 13:38:48 Depressiv e disorder 20179623 Active 2023 SIRI Stevens [address] [place] [address], [address] 8, [employer] 13:38:51 Viral gastroent eritis 478785476 Completed 202312/13/2024 SIRI Stevens [address] [place] [address], 82497-[address] 8, [employer] 5 13:38:58 Severe dry skin 317295747 Completed 202412/13/2024 SIRI Stevens [address] [place] [address], 959[address] 8, [employer] 5 13:38:56 Vitamin D deficienc y 37577350 Active 2024 SIRI Stevens [address] [place] [address], 97[address] 8, [employer] 5 13:39:14 Pain in right foot 948904865807 107 Active 2024 SIRI Stevens [address] [place] [address], 860[address] 8, [employer] 5 11:00:51 Pain in pelvis 78964427 Active 2024 SIRI Stevens [address] [place] [address], 39[address] 8, [employer] 14:11:13 Mixed hyperlipi demia 042211495 Active 2024 SIRI Stevens [address] [place] [address], 254[address] 8, [employer] 5 15:50:47 Type 2 diabetes mellitus 76177206 Active 2024 SIRI Stevens [address] [place] [address], 617[address]168 8, [employer] 5 17:22:21 Lumbar disc prolapse with radiculop athy 754380773 Active 2024 SIRI Stevens [address] [place] [address], [address]09[address]34 8, [employer] 15:43:38 Problem Notes None recorded. Procedures Surgical History Date Name Laterality Status Provider Name and Address Organization Details Recorded Time 12/26/19 25 Diabetic Foot Screen completed SIRI Stevens [address] [place], [address], [employer] 12/25/2024 16:25:07 12/11/19 25 Diabetic Foot Screen completed SIRI Stevens [address] [place], [address], [employer] 12/11/2024 17:41:57 11/08/19 25 Back Surgery completed [employer] 03/11/2025 15:11:41 08/13/20 24 Most Recent Mammogram completed [employer] 12/25/2024 10:03:46 07/24/20 03 Date of Last Pap Smear completed [employer] 07/27/2024 13:30:19 Back Surgery completed [employer] 07/27/2024 13:24:59 Caesarean Section completed [employer] 07/27/2024 13:24:59 Partial Hysterectomy completed [employer] 07/27/2024 13:24:59 Back Surgery completed [employer] 03/11/2025 15:11:48 Imaging Results None recorded. Procedure Notes None recorded. Medical Equipment None Reported. Allergies Allergen ID Allergen Name Allergen Category Reaction Reaction Severity Criticality Documentation Date Start Date Code Code System Note Provider Name and Address Organization Details Recorded Time 05931 morphine medicatio n Not available Not available Not available 04/05/2025 7052 RxNorm Joie alvarado, [employer] 14:00:02 Medications Name Sig Start Date [...] height Body mass index (BMI) Body weight Oxygen saturation Oxygen saturation in Arterial blood by Pulse oximetry Heart rate Body temperature Systolic blood pressure Diastolic blood pressure Provider Name and Address Organization Details Last Updated DateTime 5 172.72 cm 36 kg/m2 494404. 67 g 99 % 99 % 86 /min 98.2 [degF] 124 mm[Hg] 76 mm[Hg] Pratibha Vice [employer] 13:47:03 Social History Question Answer Notes LastModified by Organizat ion Details LastModified Time Tobacco Smoking Status Former Smoker Joie Shankar christiano [employer] 12/11/2024 14:15:00 Do You Have An Advance [...] Information not available 08/17/2024 What Type Of Fabric Awning Repairer Do You Use? None Information not available [...] Do You Have A Medical Power Of Cash Crop Farmer? No Information not available 07/27/2024 What Was [...] anxious, or unable to sleep at night)? [id number] Information not available 02/11/2025 Do you have difficulty concentrating, remembering or making decisions? No Information no t available 07/27/2024 Are you or have you been involved with bullying? No Information not available 07/27/2024 Family History Relationship Description Onset Age of this Age Resolved Age Notes LastModified by Organization Details LastModified Time Mother Hypercholest erolemia Not available 2023 13:24:58 Mother Anxiety disorder [...] available 2023 13:24:58 Medical History Condition Response Diabetes Y Anxiety Disorder Y Obesity Y Arthritis Y High Cholesterol Y Fibromyalgia Y Hypertension Y Depression Y Asthma Y Gynecological History Statement/Question Response Menses Monthly [...] Influenza, split virus, trivalent, PF 4 completed SIRI Stevens [address] [place] [address], [address], [employer] 08/03/2024 10:54:01 Influenza, split virus, quadrivalent, preservative 7 completed Joie alvarado, [employer] 12/11/2024 14:11:46 Influenza, split virus, trivalent, PF 8 completed Joie alvarado, [employer] 12/11/2024 14:11:46 Td (adult), 2 Lf tetanus toxoid, preservative free, adsorbed 7 completed Joie alvarado, [employer] 12/11/2024 14:11:46 Influenza, split virus, quadrivalent, PF 1 completed Joie alvarado, [employer] 12/11/2024 14:11:46 Influenza, split virus, quadrivalent, PF 2 completed Joie alvarado, [employer] 12/11/2024 14:11:46 Influenza, split virus, quadrivalent, PF 3 completed Joie alvarado, [employer] 12/11/2024 14:11:46 Influenza, split virus, quadrivalent, PF 0 completed Joie alvarado, [employer] 12/11/2024 14:11:46 Past Encounters Encounter ID Performer Location Encounter Start Date Encounter Closed Date Diagnosis/Indication Diagnosis SNOMED-CT Code Diagnosis ICD10 Code Diagnosis Note [id number] SIRI Stevens [facility] [address] [place] [address] 02/11/2025 13:40:39 02/11/2025 14:15:03 Burping 822264348 R14.2 Pain in pelvis 07360157 R10.2 Health Concerns Section Related Observation LastModified by Organization Detai ls LastModified Time None Recorded Concern Status LastModified by Organization Details LastModified Time None Recorded Payers Encounter Date Sequence Insurance Name Policy Number Policy Henry Covered Member ID Henry Member ID Guarantor Name 02/11/2025 1 [facility] (MEDICAID HMO) Jenny Barr [id number] Jenny Barr Notes Date Note Type Note Provider Name and Address Organization Details Recorded Time 02/11/2025 text/html Patient complain s of intermittent pelvic pain. Has been happening fort he past year or so. Has severe pain radiating into her vagina. Almost feels like something is going to fall out but has never felt a prolapse. Recently had lumbar surgery. Relieved pain in her hips but still has pain in her back. SIRI Stevens [address] [place] [address], [address], [facility] 02/12/2025 13:58:00 OBGyn Episode No OBEpisode recorded.
--- OUTSIDE RECORDS SUMMARY | 2025-04-08 15:39 | XMS_ITS | Encounter Summary ---
Author Organization [facility] Address [address] [place] [address] Care Team Providers Care Strickler Attendant Name Role Phone Janet Chapman Primary Care Provider [phone] Clarence Rubin MD Unavailable Frankie Dalton MD Unavailable Frankie Dalton MD Unavailable [phone] Celi Murrell Unavailable [phone] Norberto West MD Unavailable [phone] Encounter Details Date Type Department Care Team (Late st Contact Info) Description 12/25/2021 Orders Only External Location [address] [place] [address] Celi Murrell PA [address] [facility] [address] [place] [address] Social History Tobacco Use Types Packs/Day Years Used Date Smoking Tobacco: Every Day Cigarettes Smokeless Tobacco: Never Alcohol Use Standard Drinks/Week Comments Not Currently 0 (1 standard drink = 0.6 oz pure alcohol) Alcoholic Drinks/day: Former consumption of alcohol Comments Unknown Sex and Gender Information Value Date Recorded Sex Assigned at Female 11/07/2024 8:24 AM EST Legal Sex Female 8:45 PM EDT Gender Identity Not on file Sexual Orientation Not on file COVID-19 Exposure Response Date Recorded In the last month, have you been in contact with someone who was confirmed or suspected to have Coronavirus / COVID-19? No / Unsure 12/15/2021 11:04 AM EST documented as of this encounter Plan of Treatment Upcoming Encounters Date Type Department Care Team (Late st Contact Info) Description 04/24/2025 1:40 PM EDT Office Visit [facility] Orthopaedic Surgery & Sports Medicine [address] [place] [address] Norberto West MD [address] [place] [address] documented as of this encounter Procedures Procedure Name Priority Date/Time Associated Diagnosis Comments MR OUTSIDE IMAGES 12/25/2021 8:55 AM EST documented in this encounter Results * MR transfer of outside films (12/25/2021 8:55 AM EST) Anatomical Region Laterality Modality Magnetic Resonan ce 12/25/2021 8:55 AM EST Celi HORNER IM MRI PROCEDURES Final Result documented in this encounter Visit Diagnoses Not on filedocumented in this encounter Additional Health Concerns Assessment Noted Time A fall risk assessment has been complete d for the patient 12/15/2021 12:18 PM EST documented as of this encounter Care Teams Strickler Attendant Relationship Specialty Start Date End Date Janet Chapman PA [address] [place] [address] PCP - General 06/23/21 Clarence Rubin MD [address] [place] [address] Surgeon Neurosurgery 06/23/21 Frankie Dalton MD [address] [place] [address] Surgeon Neurosurgery 10/13/21 Frankie Dalton MD [address] [place] [address] Surgeon Neurosurgery 12/15/21 Celi Murrell PA [address] [place] [address] Physician Bsa Officer Neurosurgery 04/01/22 Norberto West MD [address] [place] [address] Surgeon Neurosurgery 10/29/24 documented as of this encounter
--- OUTSIDE RECORDS SUMMARY | 2025-04-08 15:39 | XMS_ITS | Encounter Summary ---
Author Organization [facility] Address [address] [place] [address] Care Team Providers Care Jute Bag Sewer Name Role Phone Janet Chapman Primary Care Provider [phone] Clarence Rubin MD Unavailable Frankie Dalton MD Unavailable [phone] Frankie Dalton MD Unavailable [phone] Celi Murrell Unavailable [phone] Norberto West MD Unavailable [phone] Encounter Details Date Type Department Care Team (Late st Contact Info) Description 03/17/2021 Orders Only [facility] [address] [place] [address] Des Da Silva MD [address] [place] [address] Lumbar radiculopathy (Primary Dx) Social History Tobacco Use Types Packs/Day Years Used Date Smoking Tobacco: Every Day Alcohol Use Standard Drinks/Week Comments Not Currently 0 (1 standard drink = 0.6 oz pure alcohol) Alcoholic Drinks/day: Former consumption of alcohol Comments Unknown Sex and Gender Information Value Date Recorded Sex Assigned at Female 11/07/2024 8:24 AM EST Legal Sex Female 8:45 PM EDT Gender Identity Not on file Sexual Orientation Not on file documented as of this encounter Plan of Treatment Upcoming Encounters Date Type Department Care Team (Late st Contact Info) Description 04/24/2025 1:40 PM EDT Office Visit [facility] Orthopaedic Surgery & Sports Medicine [address] [place] [address] Norberto West MD [address] [place] [address] documented as of this encounter Visit Diagnoses Diagnosis Lumbar radiculopathy- Primary Thoracic or lumbosacral neuritis or radiculitis, unspecified documented in this encounter Care Teams Jute Bag Sewer Relationship Specialty Start Date End Date Janet Chapman PA [address] [place] [address] PCP - General 06/23/21 Clarence Rubin MD [address] [place] [address] Surgeon Neurosurgery 06/23/21 Frankie Dalton MD [address] [place] [address] Surgeon Neurosurgery 10/13/21 Frankie Dalton MD [address] [place] [address] Surgeon Neurosurgery 12/15/21 Celi Murrell PA [address] [place] [address] Physician Program Management Analyst Neurosurgery 04/01/22 Norberto West MD [address] [place] [address] Surgeon Neurosurgery 10/29/24 documented as of this encounter
--- OUTSIDE RECORDS SUMMARY | 2025-04-08 15:39 | XMS_ITS | Data Portability ---
Author Organization [facility] [address] [facility] Address [address] [place] [address] Assessment No assessment recorded. Plan of Treatment Reminders Order Date Submit Date Provider Last Modified By Organization Details Last Modified Time Details Appointments SAME DAY ACCESS 2024 02:30P Gerhard Chapman PA-C Not available Not available Not available FOLLOW UP 2024 08:00A Gerhard Chapman PA-C Not available Not available Not available Lab HbA1c (hemoglob in A1c), blood [address], [address] [place] [address], [place], [address], 03/11/2025 15:25:50 H pylori urea breath test, co2 infrared 2024 025 [facility] ([place] [address] [place], [address], 02/12/2025 14:13:20 TSH, ultra-sen sitive, serum 2024 025 [facility] ([place] [address] [place], [address], 01/01/2025 09:08:21 rf (rheumato id factor), serum 2024 025 [facility] ([place] [address] [place], [address], 01/01/2025 09:08:22 C reactive protein, QN, serum or plasma 2024 025 [facility] ([place]), [address] [place], [address], 01/01/2025 09:08:25 erythrocy te sedimenta tion rate by westergre n method 2024 025 [facility] ([place]), [address] [place], [address], 01/01/2025 09:08:23 MARITA (antinucl ear antibodie s) screen, serum 2024 025 [facility] ([place] [address] [place], [address], 01/01/2025 09:08:23 ccp (cyclic citrullin ated peptide) iga+igg, serum 2024 025 [facility] ([place] [address] [place], [address], 01/01/2025 09:08:23 testoster one, total, serum 2024 025 [facility] ([place] [address] [place], [address], 01/01/2025 09:08:22 lh + FSH, serum 2024 025 [facility] ([place] [address] [place], [address], 01/01/2025 09:08:21 progester one, serum 2024 025 [facility] ([place] [address] [place], [address], 01/01/2025 09:08:24 estrogen, total, serum 2024 025 [facility]), [address] [place], [address], 01/01/2025 09:08:24 Referral None recorded. Procedures None recorded. Surgeries None recorded. Imaging US, transvagi nal 2024 025 [facility] Scheduling Department -New Scheduling Process, [facility] [address], [place], [address], 02/18/2025 10:31:05 CT, abdomen + pelvis, w/o contrast - first available appt 2024 025 [facility] Scheduling Department -New Scheduling Process, [address] [place] [address] [address], [place], [address], 02/21/2025 11:01:24 XR, foot, 3 or more view 2024 025 [facility] Scheduling Department -New Scheduling Process, [address] [place] [address] [address], [place], [address], 01/01/2025 13:36:53 Medication Orders ketorolac 60 mg/2 mL intramusc ular solution [address], [address] [place] [address], [address], [place], [address], 04/08/2025 14:41:06 Depo-Medr ol 80 mg/mL suspensio n for injection [address], [facility] E [facility], [address], [place], [address], 04/08/2025 14:41:02 prednison e 20 mg tablet [address] [facility], [address] [place] [address], [address], [place], [address], 04/05/2025 15:47:36 atorvasta tin 20 mg tablet 2024 025 [facility], [facility] E [facility], [address], [place], [address], 03/11/2025 15:52:28 albuterol sulfate HFA 90 mcg/actua tion aerosol inhaler 2024 [facility], [address] [place] [address], [address], [place], [address], 03/11/2025 15:52:31 cholecalc iferol (vitamin D3) 50 mcg (2,000 unit) capsule 2024 [facility], [address] [place] [address], [address], [place], [address], 03/11/2025 15:52:33 ergocalci ferol (vitamin D2) 1,250 mcg (50,000 unit) capsule 2024 [facility], [address] [place] [address], [address], [place], [address], 03/11/2025 15:52:32 Ozempic 0.25 mg or 0.5 mg (2 mg/3 mL) subcutane ous pen injector 2024 [facility], [address] [place] [address], [address], [place], [address], 03/11/2025 15:52:30 lisinopri l 10 mg tablet 2024 [facility], [address] [place] [address], [address], [place], [address], 03/11/2025 15:52:29 escitalop tyrese 20 mg tablet 2024 [facility], [address] [place] [address], [address], [place], [address], 03/11/2025 15:52:27 Rexulti 1 mg tablet 2024 025 [facility], [address] [place] [address], [address], [place], [address], 03/11/2025 15:52:28 Patient TargetsNo targets recorded. Patient Instructions Encounter Date Encounter Id Patient Instructions Last Modified By Organization Details Last Modified Time 12/25/2024 [id number] Decreased Female Libido: Care Instructions [email or web address] Not available 12/25/2024 11:27:17 03/11/2025 [id number] learning about type 2 diabetes [email or web address] Not available 03/11/2025 15:16:41 type 2 diabetes: care instructions [id number] Not available 03/11/2025 15:16:41 learning about mood disorders [email or web address] Not available 03/11/2025 15:51:40 Reason for Referral Pain Management Referral for Lumbar disc prolapse with radiculopathy Referring Physician: Janet Chapman, Family Medicine, Encounter Date: 04/08/2025 Results Created Date Observation Date Name Description Value Unit Range Abnormal Flag Note LastModifiedBy Organization Detail LastModifiedTime 12/11/1912/12/2024 CBC WITH DIFFE RENTI AL/PL ATELE T WBC 9.0 x10e3 /uL 3.4-10 .8 normal Not Available [facility] ([facility]) [address] [place], [address], 12/12/2024 08:11:56 12/11/19 25 12/12/2024 CBC WITH DIFFE RENTI AL/PL ATELE T RBC 4.22 x10e6 /uL 3.77-5 .28 normal Not Available [facility] ([facility]) [address] [place], [address], 12/12/2024 08:11:56 12/11/1912/12/2024 CBC WITH DIFFE RENTI AL/PL ATELE T hemoglobin 12.9 g/dL 11.1-1 5.9 normal Not Available [facility] ([facility]) [address] [place], [address], 12/12/2024 08:11:56 12/11/19 25 12/12/2024 CBC WITH DIFFE RENTI AL/PL ATELE T hematocrit 38.4 % 34.0-4 6.6 normal Not Available [facility] ([facility]) [address] [place], [address], 12/12/2024 08:11:56 12/11/19 25 12/12/2024 CBC WITH DIFFE RENTI AL/PL ATELE T MCV 91 fL 79-97 normal Not Available [facility] ([facility]) [address] [facility], [place], [address], 12/12/2024 08:11:56 12/11/19 25 12/12/2024 CBC WITH DIFFE RENTI AL/PL ATELE T MCH 30.6 pg 26.6-3 3.0 normal Not Available [facility] ([facility]) [address] [place], [address], 12/12/2024 08:11:56 12/11/19 25 12/12/2024 CBC WITH DIFFE RENTI AL/PL ATELE T MCHC 33.6 g/dL 31.5-3 5.7 normal Not Available [facility] ([facility]) [address] [facility], [place], [address], 12/12/2024 08:11:56 12/11/1912/12/2024 CBC WITH DIFFE RENTI AL/PL ATELE T RDW 11.5 % 11.7-1 5.4 below low normal Not Available [facility] ([facility]) [address] [place], [address], 12/12/2024 08:11:56 12/11/1912/12/2024 CBC WITH DIFFE RENTI AL/PL ATELE T platelets 356 x10e3 /uL 150-45 0 normal Not Available [facility] ([facility]) [address] [place], [address], 12/12/2024 08:11:56 12/11/19 25 12/12/2024 CBC WITH DIFFE RENTI AL/PL ATELE T neutrophils 66 % not estab. normal Not Available [facility] ([facility]) [address] [place], [address], 12/12/2024 08:11:56 12/11/19 25 12/12/2024 CBC WITH DIFFE RENTI AL/PL ATELE T lymphs 28 % not estab. normal Not Available [facility] ([facility]) [address] [facility], [place], [address], 12/12/2024 08:11:56 12/11/19 25 12/12/2024 CBC WITH DIFFE RENTI AL/PL ATELE T monocytes 5 % not estab. normal Not Available [facility] ([facility]) [address] [facility], [place], [address], 12/12/2024 08:11:56 12/11/19 25 12/12/2024 CBC WITH DIFFE RENTI AL/PL ATELE T eos 1 % not estab. normal Not Available [facility] ([facility]) [address] [facility], [place], [address], 12/12/2024 08:11:56 12/11/19 25 12/12/2024 CBC WITH DIFFE RENTI AL/PL ATELE T basos 0 % not estab. normal Not Available [facility] ([facility]) [address] [facility], [place], [address], 12/12/2024 08:11:56 12/11/19 25 12/12/2024 CBC WITH DIFFE RENTI AL/PL ATELE T immature cells TUBE MILL OPERATOR Not Available [facility] ([facility]) [address] [place], [address], 12/12/2024 08:11:56 12/11/19 25 12/12/2024 CBC WITH DIFFE RENTI AL/PL ATELE T neutrophils (absolute) 5.9 x10e3 /uL 1.4-7. 0 normal Not Available [facility] ([facility]) [address] [place], [address], 12/12/2024 08:11:56 12/11/19 25 12/12/2024 CBC WITH DIFFE RENTI AL/PL ATELE T lymphs (absolute) 2.5 x10e3 /uL 0.7-3. 1 normal Not Available [facility] ([facility]) [address] [place], [address], 12/12/2024 08:11:56 12/11/19 25 12/12/2024 CBC WITH DIFFE RENTI AL/PL ATELE T monocytes(ab solute) 0.5 x10e3 /uL 0.1-0. 9 normal Not Available [facility] ([facility]) [address] [place], [address], 12/12/2024 08:11:56 12/11/19 25 12/12/2024 CBC WITH DIFFE RENTI AL/PL ATELE T eos (absolute) 0.1 x10e3 /uL 0.0-0. 4 normal Not Available [facility] ([facility]) [address] [place], [address], 12/12/2024 08:11:56 12/11/19 25 12/12/2024 CBC WITH DIFFE RENTI AL/PL ATELE T baso (absolute) 0.0 x10e3 /uL 0.0-0. 2 normal Not Available [facility] ([facility]) [address] [place], [address], 12/12/2024 08:11:56 12/11/19 25 12/12/2024 CBC WITH DIFFE RENTI AL/PL ATELE T immature granulocytes 0 % not estab. Not Available [facility] ([facility]) [address] [place], [address], 12/12/2024 08:11:56 12/11/19 25 12/12/2024 CBC WITH DIFFE RENTI AL/PL ATELE T immature grans (abs) 0.0 x10e3 /uL 0.0-0. 1 Not Available [facility] ([facility]) [address] [place], [address], 12/12/2024 08:11:56 12/11/19 25 12/12/2024 CBC WITH DIFFE RENTI AL/PL ATELE T NRBC TUBE MILL OPERATOR Not Available [facility] ([facility]) [address], [place], [address], 12/12/2024 08:11:56 12/11/19 25 12/12/2024 CBC WITH DIFFE RENTI AL/PL ATELE T hematology comments: TUBE MILL OPERATOR Not Available [facility] ([facility]) [address], [place], [address], 12/12/2024 08:11:56 12/11/19 25 12/12/2024 COMP. METAB OLIC PANEL (14) glucose 132 mg/dL 70-99 above high normal Not Available [facility] ([facility]) [address] [facility] [place], [address], 12/12/2024 08:11:57 12/11/19 25 12/12/2024 COMP. METAB OLIC PANEL (14) BUN 10 mg/dL 6-24 normal Not Available [facility] ([facility]) [address] [facility], [place], [address], 12/12/2024 08:11:57 12/11/19 25 12/12/2024 COMP. METAB OLIC PANEL (14) creatinine 0.91 mg/dL 0.57-1 .00 normal Not Available [facility] ([facility]) [address] [facility] [place], [address], 12/12/2024 08:11:57 12/11/19 25 12/12/2024 COMP. METAB OLIC PANEL (14) eGFR 76 mL/mi n/1.7 3 >59 normal Not Available [facility] ([facility]) [address] [facility] [place], [address], 12/12/2024 08:11:57 12/11/19 25 12/12/2024 COMP. METAB OLIC PANEL (14) BUN/creatini ne ratio 11 9-23 normal Not Available [facility] ([facility]) [address] [facility] [place], [address], 12/12/2024 08:11:57 12/11/19 25 12/12/2024 COMP. METAB OLIC PANEL (14) sodium 138 mmol/ L 134-14 4 normal Not Available [facility] ([facility]) [address] [facility] [place], [address], 12/12/2024 08:11:57 12/11/19 25 12/12/2024 COMP. METAB OLIC PANEL (14) potassium 4.4 mmol/ L 3.5-5. 2 normal Not Available [facility] ([facility]) [address] [facility] [place], [address], 12/12/2024 08:11:57 12/11/19 25 12/12/2024 COMP. METAB OLIC PANEL (14) chloride 103 mmol/ L 96-106 normal Not Available [facility] ([facility]) [address] [facility] [place], [address], 12/12/2024 08:11:57 12/11/19 25 12/12/2024 COMP. METAB OLIC PANEL (14) carbon dioxide, total 21 mmol/ L 20-29 normal Not Available [facility] ([facility]) [address] [facility] [place], [address], 12/12/2024 08:11:57 12/11/19 25 12/12/2024 COMP. METAB OLIC PANEL (14) calcium 9.0 mg/dL 8.7-10 .2 normal Not Available [facility] ([facility]) [address] [facility] [place], [address], 12/12/2024 08:11:57 12/11/19 25 12/12/2024 COMP. METAB OLIC PANEL (14) protein, total 7.0 g/dL 6.0-8. 5 normal Not Available [facility] ([facility]) [address] [facility] [place], [address], 12/12/2024 08:11:57 12/11/19 25 12/12/2024 COMP. METAB OLIC PANEL (14) albumin 4.0 g/dL 3.8-4. 9 normal Not Available [facility] ([facility]) [address] [facility] [place], [address], 12/12/2024 08:11:57 12/11/19 25 12/12/2024 COMP. METAB OLIC PANEL (14) globulin, total 3.0 g/dL 1.5-4. 5 Not Available [facility] ([facility]) [address] [facility] [place], [address], 12/12/2024 08:11:57 12/11/19 25 12/12/2024 COMP. METAB OLIC PANEL (14) bilirubin, total 0.2 mg/dL 0.0-1. 2 normal Not Available [facility] ([facility]) [address] [facility] [place], [address], 12/12/2024 08:11:57 12/11/19 25 12/12/2024 COMP. METAB OLIC PANEL (14) alkaline phosphatase 133 IU/L 44-121 above high normal Not Available [facility] ([facility]) [address] [facility] [place], [address], 12/12/2024 08:11:57 12/11/19 25 12/12/2024 COMP. METAB OLIC PANEL (14) AST (SGOT) 32 IU/L 0-40 normal Not Available [facility] ([facility]) [address] [facility] [place], [address], 12/12/2024 08:11:57 12/11/19 25 12/12/2024 COMP. METAB OLIC PANEL (14) ALT (SGPT) 69 IU/L 0-32 above high normal Not Available [facility] ([facility]) [address] [place], [address], 12/12/2024 08:11:57 12/11/19 25 12/12/2024 LIPID PANEL cholesterol, total 186 mg/dL 100-19 9 normal Not Available [facility] ([facility]) [address] [place], [address], 12/12/2024 08:11:57 12/11/19 25 12/12/2024 LIPID PANEL triglyceride s 115 mg/dL 0-149 normal Not Available [facility] ([facility]) [address] [place], [address], 12/12/2024 08:11:57 12/11/19 25 12/12/2024 LIPID PANEL HDL cholesterol 45 mg/dL >39 normal Not Available [facility]) [address] [place], [address], 12/12/2024 08:11:57 12/11/19 25 12/12/2024 LIPID PANEL VLDL cholesterol lamont 21 mg/dL 5-40 Not Available [facility] ([facility]) [address] [place], [address], 12/12/2024 08:11:57 12/11/19 25 12/12/2024 LIPID PANEL LDL chol calc ([facility]) 120 mg/dL 0-99 above high normal Not Available [facility] ([facility]) [address] [place], [address], 12/12/2024 08:11:57 12/11/19 25 12/12/2024 LIPID PANEL LDL calc comment: TUBE MILL OPERATOR Not Available [facility] ([facility]) [address] [place], [address], 12/12/2024 08:11:57 12/11/19 25 12/12/2024 HCV ANTIB JOANNMorgan LUIS DE(PC R/GEN O) HCV Ab NON REACTI VE non reacti ve Not Available [facility] ([facility]) [address] [facility], [place], [address], 12/12/2024 08:11:58 12/11/1912/12/2024 HCV ANTIB JOANN CASCA DE(PC R/GEN O) interpretati on: COMMEN T Not infec bimal with HCV unles s early or acute infec tion is suspe cted (whic h may be delay ed in an immun ocomp romis ed indiv idual ), or other evide nce exist s to indic ate HCV infec tion. Not Available [facility] ([facility]) [address] [facility], [place], [address], 12/12/2024 08:11:58 12/11/19 25 12/12/2024 TSH TSH 0.542 uIU/m L 0.450- 4.500 normal Not Available [facility] ([facility]) [address] [facility], [place], [address], 12/12/2024 08:11:58 12/11/1912/12/2024 VITAM IN D, 25-HY DROXY vitamin D, 25-hydroxy 23.4 NG/mL 30.0-1 00.0 below low normal Vitam in D defic iency has been defin ed by the Insti tute of Medic ine and an Endoc rine Socie ty pract ice guide line as a level of serum 25-OH vitam in D less than 20 ng/mL (1,2) . The Endoc rine Socie ty went on to furth er defin e vitam in D insuf ficie ncy as a level betwe en 21 and 29 ng/mL (2). 1. IOM (Inst itute of Medic ine). 2010. Dieta ry refer ence niraj es for calci um and D. Alfredo gutierrez [place]: The Natio nal [facility] Press . 2. Josue chan MF, Thea ey [place], Bischilo off-F errar i DOMINGUEZ, et al. Evalu ation , treat ment, and preve ntion of vitam in D defic iency : an Endoc rine Socie ty clini lmaont pract ice guide line. JCEM. 2010; 96(7) :1911 -30. Not Available [facility] ([facility]) [address] [facility], [place], [address], 12/12/2024 08:11:59 12/11/19 25 12/12/2024 HIV AB/P2 4 AG WITH REFLE X HIV Ab/P24 Ag screen NON REACTI VE non reacti ve HIV Negat jamila HIV-1 /HIV- 2 antib odies and HIV-1 p24 antig en were NOT detec bimal. There is no labor atory evide nce of HIV infec tion. Not Available [facility] ([facility]) [address] [facility], [place], [address], 12/12/2024 08:11:59 12/11/19 25 12/11/2024 micro album in/cr eatin ine, mass ratio , urine Microalbumin 10 mg/L Not Available [facility] [address] [place] [address], [phone], 12/11/2024 14:24:45 12/11/19 25 12/11/2024 micro album in/cr eatin ine, mass ratio , urine Creatinine 50 mg/dL Not Available [facility] [address] [place] [address], [address], 12/11/2024 14:24:45 12/11/19 25 12/11/2024 micro album in/cr eatin ine, mass ratio , urine Ratio <30 mg/g Not Available [facility] [address] [place] [address], [address], 12/11/2024 14:24:45 12/11/19 25 12/11/2024 HbA1c (hemo globi n A1c), blood HbA1c 6.8 % Not Available [facility] [address] [place] [address], [address], 12/11/2024 14:17:50 12/26/1912/26/2024 FSH AND LH LH 40.9 mIU/m L normal Adult Femal e Range Folli cular phase 2.4 - 12.6 Ovula tion phase 14.0 - 95.6 Lutea l phase 1.0 - 11.4 Postm enopa usal 7.7 - 58.5 Not Available [facility] ([facility]) [address] [place], [address], 01/01/2025 09:08:21 12/26/1912/26/2024 FSH AND LH FSH 56.4 mIU/m L Adult Femal e Range Folli cular phase 3.5 - 12.5 Ovula tion phase 4.7 - 21.5 Lutea l phase 1.7 - 7.7 Postm enopa usal 25.8 - 134.8 Not Available [facility] ([facility]) [address] [place], [address], 01/01/2025 09:08:21 12/26/1912/26/2024 TSH TSH 0.508 uIU/m L 0.450- 4.500 normal Not Available [facility] ([facility]) [address] [place], [address], 01/01/2025 09:08:21 12/26/1912/26/2024 RHEUM ATOID FACTO R (RF) rheumatoid factor (rf) <10.0 IU/mL <14.0 Not Available [facility] ([facility]) [address] [place], [address], 01/01/2025 09:08:22 12/26/1901/01/2025 TESTO STERO NE, TOTAL , LC/MS testosterone , total, lc/MS 24 NG/dL This test was devel oped and its perfo rmanc e titi cteri stics deter mined by [facility]. It has not been clear ed or appro laura by the Food and Drug Admin istra tion. Refer ence Range : Adult Femal es Preme nopau koby 10 - 55 Postm enopa usal 7 - 40 Not Available [facility] [address] [place], [address], 01/01/2025 09:08:22 12/26/19 25 12/26/2024 ANTI- CCP AB, IGG/I GA anti-ccp Ab, IgG/IgA 4 units 0-19 Negat jamila <20 Weak posit jamila 20 - 39 Moder ate posit jaimla 40 - 59 Stron g posit jamila >59 Not Available [facility] ([facility]) [address] [place], [address], 01/01/2025 09:08:22 12/26/19 25 12/26/2024 ANTIN UCLEA R AB MULTI PLEX RFX 9 MARITA direct Negati ve negati ve Not Available [facility] ([facility]) [address] [place], [address], 01/01/2025 09:08:23 12/26/19 25 12/26/2024 SEDIM ENTAT ION RATE- WESTE RGREN sedimentatio n rate-westerg elsie 30 mm/HR 0-40 normal Not Available [facility] ([facility]) [address] [place], [address], 01/01/2025 09:08:23 12/26/19 25 12/26/2024 PROGE STERO NE progesterone 0.2 NG/mL normal Folli cular phase 0.1 - 0.9 Lutea l phase 1.8 - 23.9 Ovula tion phase 0.1 - 12.0 Pregn ant First trime ster 11.0 - 44.3 Secon d trime ster 25.4 - 83.3 Third trime ster 58.7 - 214.0 Postm enopa usal 0.0 - 0.1 Not Available [facility] ([facility]) [address] [place], [address], 01/01/2025 09:08:24 12/26/19 25 12/28/2024 ESTRO GENS, TOTAL estrogens, total 64 pg/mL normal Prepu isabella l < 40 Femal e Cycle : 1-10 Days 16 - 328 11-20 Days 34 - 501 21-30 Days 48 - 350 Post- Menop ausal 40 - 244 Not Available [facility] ([facility]) [address] [facility], [place], [address], 01/01/2025 09:08:24 12/26/19 25 12/26/2024 C-SCOTT CTIVE PROTE IN, QUANT C-reactive protein, quant 7 mg/L 0-10 normal Not Available [facility] ([facility]) [address] [facility], [place], [address], 01/01/2025 09:08:25 02/12/20 25 02/12/2025 H PYLOR I BREAT H TEST H pylori breath test Negati ve negati ve Not Available [facility] ([facility]) [address] [facility], [place], [address], 02/12/2025 14:13:20 03/11/20 25 03/11/2025 HbA1c (hemo globi n A1c), blood HbA1c 9.7 % Not Available [facility] [address] [place] [address], [place], [address], 03/11/2025 15:13:16 01/02/20 25 12/26/2024 XR, foot, 3 or more view No observ ation record ed. [email or web address] [facility] (Med Record) [address], [place], [address], 01/01/2025 14:29:34 02/19/20 25 02/13/2025 US, trans vagin al No observ ation record ed. [email or web address] [facility] Scheduling Department -New Scheduling Process [address], [place], [address], 02/18/2025 17:57:24 02/22/20 25 02/19/2025 CT, abdom en + pelvi s, w/o contr ast No observ ation record ed. [address] (Med Record) [address], [place], [address], 02/21/2025 12:57:20 03/04/20 25 02/25/2025 US, franklyn fullerde r No observ ation record ed. [address] Scheduling Department -New Scheduling Process [address], [place], [address], 03/07/2025 10:29:58 Result Notes None recorded. Problems Name Problem SNOMED Code Status Onset Date Resolution Date Notes Provider Name and Address Organization Details Recorded Time Type 2 diabetes mellitus without complicat ion 262380703 Active 2023 SIRI Stevens [address] [place] [address], [address], [employer] 13:39:01 Low back pain 105697534 Active 2023 SIRI Stevens [address] [place] [address], [address], [employer] 13:38:53 Cough 34134238 Completed 202312/13/2024 SIRI Stevens [address] [place] [address], [address], [employer] 13:38:48 Depressiv e disorder 23745997 Active 2023 SIRI Stevens [address] [place] [address], [address], [employer] 13:38:51 Viral gastroent eritis 265684350 Completed 202312/13/2024 SIRI Stevens [address] [place] [address], [address], [employer] 13:38:58 Severe dry skin 243313563 Completed 202412/13/2024 SIRI Stevens [address] [place] [address], [address], [employer] 13:38:56 Vitamin D deficienc y 61991160 Active 2024 SIRI Stevens [address] [place] [address], [address], [employer] 13:39:14 Pain in right foot 207059242057 107 Active 2024 SIRI Stevens [address] [place] [address], [address], [employer] 11:00:51 Pain in pelvis 73622114 Active 2024 SIRI Stevens [address] [place] [address], [address], [employer] 14:11:13 Mixed hyperlipi demia 703329906 Active 2024 SIRI Stevens [address] [place] [address], [phone] 8, [employer] 15:50:47 Type 2 diabetes mellitus 18458646 Active 2024 SIRI Stevens [address] [place] [address], [phone] 8, [employer] 17:22:21 Lumbar disc prolapse with radiculop athy 438601882 Active 2024 SIRI Stevens [address] [place] [address], [phone] 8, [employer] 15:43:38 Problem Notes None recorded. Procedures Surgical History Date Name Laterality Status Provider Name and Address Organization Details Recorded Time 12/26/19 25 Diabetic Foot Screen completed SIRI Stevens [address] [place], [address], [employer] 12/25/2024 16:25:07 12/11/19 25 Diabetic Foot Screen completed SIRI Stevens [address] [place], [address], [employer] 12/11/2024 17:41:57 11/08/19 25 Back Surgery completed [employer] 03/11/2025 15:11:41 08/13/20 24 Most Recent Mammogram completed [employer] 12/25/2024 10:03:46 07/24/20 03 Date of Last Pap Smear completed [employer] 07/27/2024 13:30:19 Back Surgery completed [employer] 07/27/2024 13:24:59 Caesarean Section completed [employer] 07/27/2024 13:24:59 Partial Hysterectomy completed [employer] 07/27/2024 13:24:59 Back Surgery completed [employer] 03/11/2025 15:11:48 Imaging Results None recorded. Procedure Notes None recorded. Medical Equipment None Reported. Allergies Allergen ID Allergen Name Allergen Category Reaction Reaction Severity Criticality Documentation Date Start Date Code Code System Note Provider Name and Address Organization Details Recorded Time 30352 morphine medicatio n Not available Not available Not available 04/05/2025 7052 RxNorm Joie Raad alvarado, [employer] 14:00:02 Medications Name Sig Start Date [...] Details Last Updated DateTime 5 172.72 cm 34.1 kg/m2 781649. 69 g 96 % 96 % 84 /min 98.6 [degF] 118 mm[Hg] 78 mm[Hg] [facility] [employer] 5 10:00:04 Date Recorded Body height Body mass index (BMI) Body weight Oxygen saturation Oxygen saturation in Arterial blood by Pulse oximetry Heart rate Body temperature Systolic blood pressure Diastolic blood pressure Provider Name and Address Organization Details Last Updated DateTime 5 172.72 cm 36 kg/m2 298888. 67 g 99 % 99 % 86 /min 98.2 [degF] 124 mm[Hg] 76 mm[Hg] [employer] 5 13:47:03 Date Recorded Body height Body mass index (BMI) Body weight Body temperature Oxygen saturation Oxygen saturation in Arterial blood by Pulse oximetry Heart rate Systolic blood pressure Diastolic blood pressure Provider Name and Address Organization Details Last Updated DateTime 5 172.72 cm 36.6 kg/m2 617129. 04 g 98.3 [degF] 96 % 96 % 76 /min 122 mm[Hg] 76 mm[Hg] [employer] 5 15:09:38 Date Recorded Body height Body mass index (BMI) Body weight Body temperature Heart rate Oxygen saturation Oxygen saturation in Arterial blood by Pulse oximetry Systolic blood pressure Diastolic blood pressure Provider Name and Address Organization Details Last Updated DateTime 5 172.72 cm 36.4 kg/m2 436368. 28 g 98.2 [degF] 85 /min 97 % 97 % 123 mm[Hg] 80 mm[Hg] Joie Shankar [employer] 5 14:02:28 Date Recorded Body height Body mass index (BMI) Body weight Oxygen saturation Oxygen saturation in Arterial blood by Pulse oximetry Heart rate Body temperature Systolic blood pressure Diastolic blood pressure Provider Name and Address Organization Details Last Updated DateTime 5 172.72 cm 36.9 kg/m2 811773. 51 g 97 % 97 % 78 /min 98.1 [degF] 128 mm[Hg] 80 mm[Hg] [employer] 5 14:40:50 Social History Question Answer Notes LastModified by Organizat ion Details LastModified Time Tobacco Smoking Status Former Smoker [email or web address] 12/11/2024 14:15:00 Do You Have An Advance [...] Information not available 08/17/2024 What Type Of It Systems Engineer Do You Use? None Information not available [...] Do You Have A Medical Power Of Welfare Administrator? No Information not available 07/27/2024 What Was [...] anxious, or unable to sleep at night)? [id number] Information not available 02/11/2025 Do you have [...] available 2023 13:24:58 Medical History Condition Response Anxiety Disorder Y Diabetes Y Obesity Y Arthritis Y Depression Y Asthma Y High Cholesterol Y Fibromyalgia Y Hypertension Y Gynecological History Statement/Question Response [...] virus, trivalent, PF 4 completed SIRI Stevens [address] [place] [address], [phone], [employer] 08/03/2024 10:54:01 Influenza, split virus, quadrivalent, preservative 7 completed Joie Shankar null, [employer] 12/11/2024 14:11:46 Influenza, split virus, trivalent, PF 8 completed Joie Shankar null, [employer] 12/11/2024 14:11:46 Td (adult), 2 Lf tetanus toxoid, preservative free, adsorbed 7 completed Joie Shankar null, [employer] 12/11/2024 14:11:46 Influenza, split virus, quadrivalent, PF 1 completed Joie Shankar null, [employer] 12/11/2024 14:11:46 Influenza, split virus, quadrivalent, PF 2 completed Joie Shankar null, [employer] 12/11/2024 14:11:46 Influenza, split virus, quadrivalent, PF 3 completed Joie Shankar null, [employer] 12/11/2024 14:11:46 Influenza, split virus, quadrivalent, PF 0 completed Joie Shankar null, [employer] 12/11/2024 14:11:46 Past Encounters Encounter ID Performer Location Encounter Start Date Encounter Closed Date Diagnosis/Indication Diagnosis SNOMED-CT Code Diagnosis ICD10 Code Diagnosis Note [id number] SIRI Stevens [address] [address] 07/27/2024 13:16:28 07/27/2024 14:03:57 Screening mammography 81631247 Z12.31 Type 2 anshul betes mellitus without complication 747403525 E11.9 Low back pain 396540018 M54.50 Cough 84042787 R05.9 Depressive disorder 3548 9007 F32.A [id number] SIRI Stevens [address] [address] 08/02/2024 09:24:54 08/02/2024 13:58:10 Administration of influenza vaccine 87639818 Z23 [id number] SIRI Stevens [address] [address] 12/11/2024 13:57:44 12/11/2024 14:51:40 Type 2 diabetes mellitus without complication 794309531 E11.9 Severe dry skin 11156114 2 L85.3 HIV screening 442041206 Z11.4 Hepatitis C screening 41 9127646 Z11.59 Body mass index 30+ - obesity 097400956 Z68.33 [id number] SIRI Stevens [address] [address] 12/25/2024 09:39:09 12/25/2024 11:00:14 Pain in right foot 8011342334 67987 M79.671 Xrayepsom salt soaksVolta elsie gelKT tape Reduced libido 4407410 R 68.82 Severe dry skin 02527971 2 L85.3 [id number] SIRI Stevens [address] [address] 02/11/2025 13:40:39 02/11/2025 14:15:03 Burping 752561633 R14.2 Pain in pelvis 74185341 R10.2 [id number] SIRI Stevens [address] [address] 03/11/2025 15:00:51 03/11/2025 15:44:20 Type 2 diabetes mellitus 90027922 E11.9 Hga1c has gone up, but she was off Ozempic for a few weeks; will repeat next OV Depressive disorder 3548 9007 F32.A Vitamin D deficiency 347 27639 E55.9 Mixed hyperlipidemia 267 069283 E78.2 Essential hypertension 57732788 I10 Type 2 anshul betes mellitus without complication 046803003 E11.9 Cough 51704524 R05.9 [id number] SIRI Stevens [facility] [address] [place] [address] 04/05/2025 13:46:18 04/05/2025 14:40:19 Acute low back pain 144081007 M54.50 Lumbar dis c prolapse with radiculopathy 127824848 M51.16 RTC if not improving [id number] SIRI Stevens [facility] [address] [place] [address] 04/08/2025 14:33:39 04/08/2025 15:06:20 Lumbar disc prolapse with radiculopathy 890556973 M51.16 Health Concerns Section Related Observation LastModified by Organization Detai ls LastModified Time None Recorded Concern Status LastModified by Organization Details LastModified Time None Recorded Advance Directives Directive N: Payers Insurance Date Sequence Insurance Name Policy Number Policy Henry Covered Member ID Henry Member ID Guarantor Name 04/05/2025 1 [facility] (MEDICAID HMO) Jenny Barr [id number] Jenny Barr Notes Date Note Type Note Provider Name and Address Organization Details Recorded Time 12/25/2024 text/html Pain in right fo ot for the past few weeks. No injury. Hurts in the arch of her foot and swells. Goes down a little overnight. Had lumbar fusion a few weeks ago. Can't take NSAIDs. Hasn't tried warm soaks. Also c/o no libido, hair loss. SIRI Stevens [address] [place] [address], [phone], [place] [facility] [employer] 12/25/2024 16:28:18 02/11/2025 text/html Patient complain s of intermittent pelvic pain. Has been happening fort he past year or so. Has severe pain radiating into her vagina. Almost feels like something is going to fall out but has never felt a prolapse. Recently had lumbar surgery. Relieved pain in her hips but still has pain in her back. SIRI Stevens [address] [place], [address], [employer] 02/12/2025 13:58:00 03/11/2025 text/html Patient presents for followup. Due for refills. Has intermittent pain in right hand. HgA1c has gone up - she had lumbar fusion roughly 6 weeks ago and was off some of her meds for a while. SIRI Stevens [address] [facility], [place], [address], [employer] 03/11/2025 17:22:47 04/05/2025 text/html Patient states s he injured her back the last week of February. She was at her [employer] field day, got sprayed with water, and jerked involuntarily. Thought she had pulled a muscle but muscle relaxers, rest, heat havent really helped. By the end of the day pain radiates down her left hip. Had lumbar fusion back in October. SIRI Stevens [address] [facility], [place], [address], [employer] 04/05/2025 15:44:44 OBGyn Episode No OBEpisode recorded.
--- OUTSIDE RECORDS SUMMARY | 2025-04-08 15:39 | XMS_ITS | Clinical Summary ---
Author Organization [facility] Address [address] [place] [address] Care Team Providers Care Supervisor [employer]ing [employer] Pasting Name Role Phone Janet Chapman Primary Care Provider [phone] Clarence Rubin MD Unavailable Frankie Dalton MD Unavailable [phone] Frankie Dalton MD Unavailable [phone] Celi Murrell Unavailable [phone] Norberto West MD Unavailable [phone] Allergies Active Allergy Reactions Criticality Noted Date Comments Metformin Other - please docum ent in the comment field Low 06/16/2024 Morphine Other - please docum ent in the comment field Low 07/29/2014 n/v Medications atorvastatin (Lipitor) 20 MG tablet Take 1 tablet (20 mg) by mouth nightly. 8 Active lisinopril 10 MG tablet Take 1 tablet (10 mg) by mouth nightly. 8 Active albuterol 108 (90 Base) MCG/ACT inhaler Inhale 2 puffs every 6 hours as needed for wheezing. Active brexpiprazole (Rexulti) 1 MG tablet tablet 1 tablet (1 mg). 4 Active ergocalciferol 1.25 MG (16975 UT) capsule Takes on Sundays 4 Active Ozempic, 0.25 or 0.5 MG/DOSE, 2 MG/3ML solution pen-injector Saturdays 4 Active escitalopram (Lexapro) 20 MG tablet Take 1 tablet (20 mg) by mouth daily. Active varenicline (Chantix) 1 MG tablet 2 (two) times a day. Active fluconazole (Diflucan) 150 MG tabletIndicatio ns:Acute cystitis without hematuria,Yeast UTI Take one po q day at onset of symptoms, may repeat day #3 if needed. 2 tablet 5 Active naloxone (Narcan) 4 mg/0.1 mL nasal spray 1. Give 1 spray in nostril for no/slow breathing or cannot wake after opioid use 2. Call 911 3. Repeat in other nostril if symptoms continue 1 each 5 Active cholecalciferol (Vitamin D-3) 50 MCG (1999) capsule 5 Active methylPREDNISol one (Medrol Dospak) 4 MG tabletsIndicati ons:Status post lumbar spinal fusion,Postoper ative pain Follow schedule on package instructions 21 tablet 5 Active methocarbamol (Robaxin) 500 MG tablet Take 1 tablet by mouth in the morning and 1 tablet at noon and 1 tablet in the evening and 1 tablet before bedtime. Do all this for 14 days. 56 tablet 5 Active Active Problems Problem Noted Date Diagnosed Date Lumbar stenosis with neurogenic claudication Spondylolisthesis at L4-L5 level 11/08/2024 History of lumbar laminectomy 11/08/2024 Spinal stenosis of lumbar re gion with neurogenic claudication 2024 Obesity (BMI 35.0-39.9 without comorbidity) 02/22 History of smoking 25-50 pack years 03/17/2022 Overview (03/17/2022): 1 ppd for 30 years. Mild intermittent asthma without complication High cholesterol 03/17/2022 Primary hypertension 03/17/2022 Lumbar radiculopathy 01/21/2022 Overview (01/21/2022): Added automatically from request for surgery [id number] Bilateral lower extremity pain 03/06/2021 Lower extremity numbness 03/06/2021 HNP (herniated nucleus pulposus), lumbar 020 Low back pain 08/18/2020 Finger pain 03/30/2019 Osteoarthritis 03/23/2016 Muscle pain 12/26/2013 Encounters Date Type Department Care Team Description 02/06/2025 3:20 PM EDT Office Visit [facility] Surgery [facility] Medicine [address] [place] [address] Norberto West MD S/P lumbar fusion (Primary Dx) 02/06/2025 2:56 PM EDT - 02/06/2025 11:59 PM EDT Hospital Encounter [facility] Radiology [address], [address] [place] [address] Status post lumbar spinal fusion Discharge Disposition: Home or Self Care 02/06/2025 Travel 02/04/2025 Orders Only [facility] [address], [address] [place] [address] Norberto West MD Status post lumbar spinal fusion (Primary Dx) 01/30/2025 Travel 01/21/2025 Refill [facility] [address], [facility] [place] [address] Celi Murrell PA 01/21/2025 Orders Only [facility] [address], [address] [place] [address] Celi Murrell PA Status post lumbar spinal fusion (Primary Dx); Postoperative pain from Last 3 Months Immunizations Immunization Administration Dates Next Due Influenza, injectable, quadrivalent 09/22/2017 Influenza, injectable, quadrivalent, preservativ e free 08/11/2021,09/29/2020 Influenza, seasonal, injectable, preservative fr ee 08/15/2018 TD (adult), 2 Lf tetanus tox oid, preservative free, adsorbed 12/29/1996 Family History Medical History Relation Name Comments Lupus Father's Sister Crohn's disease Maternal Grandmother Arthritis Mother SOL Cancer Mother SOL Depression Mother SWETA Diabetes Mother SWETA Hypertension Mother SWETA Rheumatologic disease Mother SWETA Fibromyalgia Mother's Sister Collagen disease Other 1 Daughter Shweta Depression Other 1 Daughter Shweta Diabetes Other 2 Fibromyalgia Other 3 Hypertension Other 4 Rheum arthritis Other 5 Asthma Son Silvestre Campbell Hyperthermia Neg Hx Relation Name Status Comments Father's Sister Maternal Grandmother Mother SWETA Alive Mother's Sister Other 1 Daughter Shweta Other 2 Other 3 Other 4 Other 5 Son Silvestre Barr Alive Social History Tobacco Use Types Packs/Day Years Used Date Smoking Tobacco: Former Cigarettes 1.1 40 Q uit: 2023 Smokeless Tobacco: Never Tobacco Cessation:Counseling Given: Not Answered Alcohol Use Standard Drinks/Week Comments Not Currently 0 (1 standard drink = 0.6 oz pur e alcohol) maybe 2 x month Comments No Sex and Gender Information Value Date Recorded Sex Assigned at Female 11/07/2024 8:24 AM EST Legal Sex Female 8:45 PM EDT Gender Identity Not on file Sexual Orientation Not on file Last Filed Vital Signs Vital Sign Reading Time Taken Comments Blood Pressure 108/70 02/06/2025 3:12 PM EDT Pulse 98 02/06/2025 3:12 PM EDT Temperature 36.9 C (98.4 F) 02/06/2025 3:12 PM EDT Respiratory Rate 16 11/09/2024 12:36 PM EST Oxygen Saturation 97% 02/06/2025 3:12 PM EDT Inhaled Oxygen Concentration - - Weight 102 kg (225 lb) 02/06/2025 3:12 PM EDT Height 172.7 cm (5' 8 ) 02/06/2025 3:12 PM EDT Body Mass Index 34.21 02/06/2025 3:12 PM EDT Plan of Treatment Upcoming Encounters Date Type Department Care Team (Late st Contact Info) Description 04/24/2025 1:40 PM EDT Office Visit [facility]opa[facility] Surgery [facility] Sports Medicine [address] [place] [address] Norberto West MD [address] [place] [address] Health Maintenance Due Date Last Done Comments [facility]-Depression Screening 1973 [facility]-HIV Screening 1973 [facility]-Hepatitis C Screening 1973 [facility]-/Child/Adol SDOH Screenings 1973 [facility]- SDOH Screenings 1991 [facility]-Adult SDOH Screenings 1991 [facility]-Hepatitis B Vaccines (1 of 3 - 19+ 3-dose series) 1992 [facility]-Pneumococcal Vaccine: 50+ Years (1 of 2 - PCV) 1992 [facility]-DTaP,Tdap,and Td Vaccines (1 - Tdap) 12/30/1996 12/29/1996 CT Colonography 2018 Colonoscopy 2018 FIT-DNA 2018 FIT 2018 FOBT 2018 Sigmoidoscopy 2018 [facility]-Colorectal Cancer Screening 2018 [facility]-Breast Cancer Screening 2023 [facility]-Lung Cancer Screening 2023 [facility]-Zoster Vaccines (1 of 2) 2023 RLO-SACOT-99 Vaccine ( - 2023- season) 2024 [facility]-Influenza Vaccine Completed 08/02/2024 , 08/29/2023, 08/13/2022, Additional history exists [facility]-Obesity Intervention Completed 025, 12/19/2024, 11/22/2024, Additional history exists HPV Vaccines Aged Out No longer eligi ble based on patient's age to complete this topic [facility]-HIB Vaccines Aged Out No longer e ligible based on patient's age to complete this topic [facility]-Hepatitis A Vaccines Aged Out No longer eligible based on patient's age to complete this topic [facility]-IPV Vaccines Aged Out No longer e ligible based on patient's age to complete this topic [facility]-Rotavirus Vaccines Aged Out No lo nger eligible based on patient's age to complete this topic Medical Devices Implanted Type Area Ambulatory Care Nurse Device Identifier Shelf Expiration Date Model / Serial / Lot Tlif-C Ui 12mm 8deg 28 - [id number] Implanted:Qty : 1 on 11/08/2024 by Norberto West MD at [facility] Cage N/A: Spine Lumbar [id number] 03/23/2028 [id number] / / Lowell Viper2 Lordotic 45mm - [id number] Implanted:Qty : 2 on 11/08/2024 by Norberto West MD at [facility] Lowell N/A: Spine Lumbar [employer] [id number] 11/08/2025 [id number] / / Single Inner Setscrew - [id number] Implanted:Qty : 4 on 11/08/2024 by Norberto West MD at [facility] Screw N/A: Spine Lumbar [employer] [id number] 11/08/2025 [id number] / / Screw 7.0mm Viper Cfx Fen Xtab 50mm - [id number] Implanted:Qty : 4 on 11/08/2024 by Norberto West MD at [facility] Screw N/A: Spine Lumbar [employer] [id number] 11/08/2025 [id number] / / Tissue Vivigen Formable 5.4cc Med Pk/4 - [id number] - [id number] Implanted:Qty : 1 on 11/08/2024 by Norberto West MD at [facility] Spine Lumbar [facility]-[id number] 10/04/2025 [id number] / [id number] / [id number] Procedures Procedure Name Priority Date/Time Associated Diagnosis Comments XR LUMBAR SPINE 2 OR 3 VIEWS Routine 02/06/2025 3:09 PM EDT Status post lumbar spinal fusion from Last 3 Months Results * XR Lumbar Spine 2 or [...] West MD IMG XR PROCEDURES Final Result from Last 3 Months Insurance Advance Directives * Full Code (Latest Code Status on File) Date Activated Date Inactivated Comments 11/08/2024 11:18 AM 11/09/2024 4:20 PM Question Answer Comments Patient has decision-making capacity? Yes Care Teams Supervisor Buffing And Pasting Relationship Specialty Start Date End Date Janet Chapman PA [address] [facility] [address] [place] [address] PCP - General 06/23/21 Clarence Rubin MD [address] [place] [address] Surgeon Neurosurgery 06/23/21 Frankie Dalton MD [address] [place] [address] Surgeon Neurosurgery 10/13/21 Frankie Dalton MD [address] [place] [address] Surgeon Neurosurgery 12/15/21 Celi Murrell PA [address] [place] [address] Physician Mental Measurements Teacher Neurosurgery 04/01/22 Norberto West MD [address] [place] [address] Surgeon Neurosurgery 10/29/24
--- OUTSIDE RECORDS SUMMARY | 2025-04-08 15:39 | XMS_ITS | Continuity of Care Document ---
Author Organization [place] - [employer], [facility] Address [address] [place] [address] Assessment No assessment recorded. Plan of Treatment Reminders Order Date Submit Date Provider Last Modified By Organization Details Last Modified Time Details Appointments SAME DAY ACCESS 2024 02:30P Gerhard Chapman PA-C Not available Not available Not available FOLLOW UP 2024 08:00A Gerhard Chapman PA-C Not available Not available Not available Lab None recorded. Referral None recorded. Procedures None recorded. Surgeries None recorded. Imaging None recorded. Medication Orders ketorolac 60 mg/2 mL intramusc ular solution [address], [address] [place] [address], [address], 04/08/2025 14:41:06 Depo-Medr ol 80 mg/mL suspensio n for injection [address], [address] [place] [address], [address], 04/08/2025 14:41:02 prednison e 20 mg tablet [address], [address], 04/05/2025 15:47:36 Patient TargetsNo targets recorded. Patient InstructionsNo instructions recorded. Reason for Referral None Reported. Problems Name Problem SNOMED Code Status Onset Date Resolution Date Notes Provider Name and Address Organization Details Recorded Time Type 2 diabetes mellitus without complicat ion 404381965 Active 2023 SIRI Stevens [address] [place] [address], [address], [employer] 13:39:01 Low back pain 956805929 Active 2023 SIRI Stevens [address] [place] [address], 96[address] 8, [employer] 13:38:53 Cough 66733297 Completed 202312/13/2024 SIRI Stevens [address] [place] [address], 80631-576 8, [employer] 13:38:48 Depressiv e disorder 73857105 Active 2023 SIRI Stevens [address] [place] [address], 16[address]485 8, [employer] 13:38:51 Viral gastroent eritis 189052938 Completed 202312/13/2024 SIRI Stevens [address] [place] [address], 98104[address]548 8, [employer] 13:38:58 Severe dry skin 149373989 Completed 202412/13/2024 SIRI Stevens [address] [place] [address], [address] 8, [employer] 13:38:56 Vitamin D deficienc y 83193778 Active 2024 SIRI Stevens [address] [place] [address], 56627-613 8, [employer] 13:39:14 Pain in right foot 151918377531 107 Active 2024 SIRI Stevens [address] [place] [address], 58844-610 8, [employer] 11:00:51 Pain in pelvis 87429543 Active 2024 SIRI Stevens [address] [place] [address], 76384-201 8, [employer] 14:11:13 Mixed hyperlipi demia 848250264 Active 2024 SIRI Stevens [address] [place] [address], 33009-327 8, [employer] 15:50:47 Type 2 diabetes mellitus 69486012 Active 2024 SIRI Stevens [address] [place] [address], 63891-559 8, [employer] 17:22:21 Lumbar disc prolapse with radiculop athy 349856991 Active 2024 SIRI Stevens [address] [place] [address], 58625[address]948 8, [employer] 15:43:38 Problem Notes None recorded. Procedures Surgical History Date Name Laterality Status Provider Name and Address Organization Details Recorded Time 12/26/19 25 Diabetic Foot Screen completed SIRI Stevens [address] [place] [address], [address], [employer] 12/25/2024 16:25:07 12/11/19 25 Diabetic Foot Screen completed SIRI Stevens [address] [place] [address], [address], [employer] 12/11/2024 17:41:57 11/08/19 25 Back Surgery completed [employer] 03/11/2025 15:11:41 08/13/20 24 Most Recent Mammogram completed Pratibha [employer] 12/25/2024 10:03:46 07/24/20 03 Date of Last Pap Smear completed Pratibha [employer] 07/27/2024 13:30:19 Back Surgery completed Pratibha [employer] 07/27/2024 13:24:59 Caesarean Section completed Pratibha MD [employer] 07/27/2024 13:24:59 Partial Hysterectomy completed [employer]. 07/27/2024 13:24:59 Back Surgery completed [employer]. 03/11/2025 15:11:48 Imaging Results None recorded. Procedure Notes None recorded. Medical Equipment None Reported. Allergies Allergen ID Allergen Name Allergen Category Reaction Reaction Severity Criticality Documentation Date Start Date Code Code System Note Provider Name and Address Organization Details Recorded Time 25867 morphine medicatio n Not available Not available Not available 04/05/2025 7052 RxNorm Joie Shankar christiano [employer]. 14:00:02 Medications Name Sig Start Date Stop [...] Updated DateTime 5 172.72 cm 36.4 kg/m2 954883. 28 g 98.2 [degF] 85 /min 97 % 97 % 123 mm[Hg] 80 mm[Hg] Joie Shankar [employer], [employer]. 14:02:28 Social History Question Answer Notes LastModified by Organizat ion Details LastModified Time Tobacco Smoking Status Former Smoker Joie Shankar [employer]. 12/11/2024 14:15:00 Do You Have An Advance [...] Information not available 08/17/2024 What Type Of Senior Sales Operations Manager Do You Use? None Information not available [...] Do You Have A Medical Power Of Drawing Checker? No Information not available 07/27/2024 What Was [...] anxious, or unable to sleep at night)? [id number] Information not available 02/11/2025 Do you have [...] Y Diabetes Y Obesity Y Arthritis Y High Cholesterol [...] Recorded Time Influenza, split virus, trivalent, PF completed SIRI Stevens [address] [place] [address], [address], [employer] 08/03/2024 10:54:01 Influenza, split virus, quadrivalent, preservative 7 completed Joie Shankar null, [employer] 12/11/2024 14:11:46 Influenza, split virus, trivalent, PF 8 completed Joie Shankar null, [employer] 12/11/2024 14:11:46 Td (adult), 2 Lf tetanus toxoid, preservative free, adsorbed 7 completed Joie Shankar null, [employer] 12/11/2024 14:11:46 Influenza, split virus, quadrivalent, PF 1 completed Joie Shankar null, [employer] 12/11/2024 14:11:46 Influenza, split virus, quadrivalent, PF 2 completed Joie Shankar null, [employer] 12/11/2024 14:11:46 Influenza, split virus, quadrivalent, PF 3 completed Joie Shankar null, [employer] 12/11/2024 14:11:46 Influenza, split virus, quadrivalent, PF 0 completed Joie Shankar null, [employer] 12/11/2024 14:11:46 Past Encounters Encounter ID Performer Location Encounter Start Date Encounter Closed Date Diagnosis/Indication Diagnosis SNOMED-CT Code Diagnosis ICD10 Code Diagnosis Note [id number] SIRI Stevens [facility] [address] [place] [address] 03/11/2025 15:00:51 03/11/2025 15:44:20 Type 2 diabetes mellitus 35822406 E11.9 Hga1c has gone up, but she was off Ozempic for a few weeks; will repeat next OV Depressive disorder 0437 9007 F32.A Vitamin D deficiency 347 47858 E55.9 Mixed hyperlipidemia 267 112070 E78.2 Essential hypertension 59950751 I10 Type 2 anshul betes mellitus without complication 745106666 E11.9 Cough 81377614 R05.9 [id number] SIRI Stevens [facility] [address] [place] [address] 04/05/2025 13:46:18 04/05/2025 14:40:19 Acute low back pain 549906092 M54.50 Lumbar dis c prolapse with radiculopathy 251681606 M51.16 RTC if not improving Health Concerns Section Related Observation LastModified by Organization Detai ls LastModified Time None Recorded Concern Status LastModified by Organization Details LastModified Time None Recorded Payers Encounter Date Sequence Insurance Name Policy Number Policy Henry Covered Member ID Henry Member ID Guarantor Name 04/05/2025 1 [employer] [facility] (MEDICAID HMO) Jenny Barr [id number] Jenny Barr Notes Date Note Type Note Provider Name and Address Organization Details Recorded Time 04/05/2025 text/html Patient states she injured her back the last week of February. She was at her kids field day, got sprayed with water, and jerked involuntarily. Thought she had pulled a muscle but muscle relaxers, rest, heat havent really helped. By the end of the day pain radiates down her left hip. Had lumbar fusion back in October. SIRI Stevens [address] [place] [address], [place], [address], [facility] [place] [employer] 04/05/2025 15:44:44 OBGyn Episode No OBEpisode recorded.
--- NOTE | 2025-04-08 15:45 | XR_ITS ---
FINAL REPORT TECHNIQUE: 5 views CLINICAL HISTORY: RADICULOPATHY, pain in lower back for 1 month COMPARISON: 12/01/2021 FINDINGS: AP, oblique and lateral views of the lumbar spine were obtained. In the interval since the prior exam of 2021 the patient has undergone interval posterior and interbody fusion at the L4-5 level. There is no acute fracture or malalignment. Vertebral body height is preserved. There is marked disc space narrowing at the L5-S1 level, with vacuum phenomenon present. There is facet osteoarthropathy and sclerosis in the lower lumbar spine. No acute paraspinal abnormality. IMPRESSION: Interval posterior and interbody fusion at the L4-5 level, new since prior exam of 2021. L5-S1 degenerative change as described. Reviewed, Interpreted and Dictated by Tio Silver MD Transcribed by Nahomy Manzo Authenticated and [facility]
== END 2025-04-08 23:59 | disposition home or self-care (01) ==
LOC: RAD 15:37
PROVIDERS: PCP Physician Assistant; Visit Provider Physician Assistant
DX: M43.26 Fusion of spine, lumbar region (principal); M47.27 Other spondylosis with radiculopathy, lumbosacral region
CPT/HCPCS: 72110

== ENCOUNTER 2025-04-18 10:04 | Outpatient (POV) | payer OTHER, SELFPAY ==
--- OUTSIDE RECORDS SUMMARY | 2025-04-18 10:08 | XMS_ITS | Encounter Summary ---
Author Organization [facility] Address [address] [place] [address] Care Team Providers Care Flight Paramedic Name Role Phone Janet Chapman Primary Care Provider [phone] Clarence Rubin MD Unavailable Frankie Dalton MD Unavailable [phone] Frankie Dalton MD Unavailable [phone] Celi Murrell Unavailable [phone] Norberto West MD Unavailable [phone] Encounter Details Date Type Department Care Team (Late st Contact Info) Description 04/12/2025 Telephone [place] [facility] [address] [place] [address] Norberto West MD [address] [place] [address] Social History Tobacco Use Types Packs/Day Years [...] on file documented as of this encounter Miscellaneous Notes * Telephone Encounter - Tracie Montes Joseluis - 04/12/2025 8:17 AM EDT Patient Phone Message Reason for Call: Patient calling requesting sooner appt Best contact number and optimal time of day to reach caller: [phone] Note: Please do not reply to this message. Follow-up communication and further actions as a result of this message need to be communicated with the patient directly, if the patient is not active onMyChart. If the patient is active on MyChart, they will receive notification of the communication/outcome via [employer]. documented in this encounter Plan of Treatment Upcoming Encounters Date Type Department Care Team (Late st Contact Info) Description 04/24/2025 1:40 PM EDT Office Visit [facility] Orthopaedic Surgery & Sports Medicine [address] [place] [address] Norberto West MD [id number] [place] [address] documented as of this encounter Visit Diagnoses Not on filedocumented in this encounter Additional Health Concerns Assessment Noted Time A fall risk assessment has been complete d for the patient 02/06/2025 3:12 PM EDT A Body Mass Index follow-up plan has been documented for the patient 02/06/2025 6:10 PM EDT documented as of this encounter Care Teams Flight Paramedic Relationship Specialty Start Date End Date Janet Chapman PA [address] [place] [address] PCP - General 06/23/21 Clarence Rubin MD [id number] [place] [address] Surgeon Neurosurgery 06/23/21 Frankie Dalton MD [address] [place] [address] Surgeon Neurosurgery 10/13/21 Frankie Dalton MD [address] [place] [address] Surgeon Neurosurgery 12/15/21 Celi Murrell PA [address] [place] [address] Physician Yard Stocker Neurosurgery 04/01/22 Norberto West MD [address] [place] [address] Surgeon Neurosurgery 10/29/24 documented as of this encounter
--- OUTSIDE RECORDS SUMMARY | 2025-04-18 10:08 | XMS_ITS | Encounter Summary ---
Author Organization [facility] Address [address] [place] [address] Care Team Providers Care Command Post Craftsman Name Role Phone Janet Chapman Primary Care Provider [phone] Clarence Rubin MD Unavailable Frankie Dalton MD Unavailable [phone] Frankie Dalton MD Unavailable [phone] Celi Murrell Unavailable [phone] Norberto West MD Unavailable [phone] Encounter Details Date Type Department Care Team (Late st Contact Info) Description 03/17/2021 Orders Only [place] [facility] [address], [address] [place] [address] Des Da Silva MD [address] [place] [address] Lumbar radiculopathy (Primary Dx) Social [...] Description 04/24/2025 1:40 PM EDT Office Visit [facility] Orthopaedic Surgery & Sports Medicine [address] [place] [address] Norberto West MD [address] [place] [address] documented as of this encounter Visit Diagnoses Diagnosis Lumbar radiculopathy- Primary Thoracic or lumbosacral neuritis or radiculitis, unspecified documented in this encounter Care Teams Command Post Craftsman Relationship Specialty Start Date End Date Janet Chapman PA [address] [facility] [place] [address] PCP - General 06/23/21 Clarence Rubin MD [address] [place] [address] Surgeon Neurosurgery 06/23/21 Frankie Dalton MD [address] [place] [address] Surgeon Neurosurgery 10/13/21 Frankie Dalton MD [address] [place] [address] Surgeon Neurosurgery 12/15/21 Celi Murrell PA [address] [place] [address] Physician Welder Explosion Neurosurgery 04/01/22 Norberto West MD [address] [place] [address] Surgeon Neurosurgery 10/29/24 documented as of this encounter
--- OUTSIDE RECORDS SUMMARY | 2025-04-18 10:08 | XMS_ITS | Continuity of Care Document ---
Author Organization [place] - [employer], [facility] Address [address] [place] [address] Assessment No assessment recorded. Plan of Treatment Reminders Order Date Submit Date Provider Last Modified By Organization Details Last Modified Time Details Appointments FOLLOW UP 2024 08:00A Gerhard Chapman PA-C Not available Not available Not available Lab None recorded. Referral None recorded. Procedures None recorded. Surgeries None recorded. Imaging None recorded. Medication Orders ketorolac 60 mg/2 mL intramusc ular solution [address], [address] [place] [address], [address], 04/08/2025 14:41:06 Depo-Medr ol 80 mg/mL suspensio n for injection [address], [address] [place] [address], [address], 04/08/2025 14:41:02 prednison e 20 mg tablet 2024 025 [facility], [address] [place] [address], [address], 04/05/2025 15:47:36 Patient TargetsNo targets recorded. Patient InstructionsNo instructions recorded. Reason for Referral None Reported. Results Created Date Observation Date Name Description Value Unit Range Abnormal Flag Note LastModifiedBy Organization Detail LastModifiedTime 04/09/20 25 04/08/2025 XR, lumba r spine No observ ation record ed. [facility] (Med Record) [address], [place], [address], 04/09/2025 17:00:20 Result Notes None recorded. Problems Name Problem SNOMED Code Status Onset Date Resolution Date Notes Provider Name and Address Organization Details Recorded Time Type 2 diabetes mellitus without complicat ion 022507608 Active 2023 SIRI Stevens [address] [place] [address], [address], [employer] 13:39:01 Low back pain 485412232 Active 2023 SIRI Stevens [address] [place] [address], 76[address] 8, [employer] 13:38:53 Cough 48865788 Completed 202312/13/2024 SIRI Stevens [address] [place] [address], 085[address]540 8, [employer] 13:38:48 Depressiv e disorder 88131582 Active 2023 SIRI Stevens [address] [place] [address], 479[address]196 8, [employer] 13:38:51 Viral gastroent eritis 997839832 Completed 202312/13/2024 SIRI Stevens [address] [place] [address], 92669[address] 8, [employer] 13:38:58 Severe dry skin 574074356 Completed 202412/13/2024 SIRI Stevens [address] [place] [address], [address] 8, [employer] 13:38:56 Vitamin D deficienc y 66045416 Active 2024 SIRI Stevens [address] [place] [address], [address]683 8, [employer] 13:39:14 Pain in right foot 478636264234 107 Active 2024 SIRI Stevens [address] [place] [address], [address] 8, [employer] 5 11:00:51 Pain in pelvis 02241152 Active 2024 SIRI Stevens [address] [place] [address], 460[address] 8, [employer] 5 14:11:13 Mixed hyperlipi demia 064791883 Active 2024 SIRI Stevens [address] [place] [address], 936[address]-490 8, [employer] 5 15:50:47 Type 2 diabetes mellitus 05186896 Active 2024 SIRI Stevens [address] [place] [address], 41931-387 8, [employer] 5 17:22:21 Lumbar disc prolapse with radiculop athy 718050777 Active 2024 SIRI Stevens [address] [place] [address], 765[address] 8, [employer] 15:43:38 Acute low back pain 875755100 Active 2024 SIRI Stevens [address] [place] [address], 239[address] 8, [employer] 5 09:12:29 Problem Notes None recorded. Procedures Surgical History Date Name Laterality Status Provider Name and Address Organization Details Recorded Time 12/26/19 25 Diabetic Foot Screen completed SIRI Stevens [address] [place] [address], [address], [employer] 12/25/2024 16:25:07 12/11/19 25 Diabetic Foot Screen completed SIRI Stevens [address] [place] [address], [address], [employer] 12/11/2024 17:41:57 11/08/19 25 Back Surgery completed Pratibha [facility]. 03/11/2025 15:11:41 08/13/20 24 Most Recent Mammogram completed [employer] 12/25/2024 10:03:46 07/24/20 03 Date of Last Pap Smear completed [employer]. 07/27/2024 13:30:19 Back Surgery completed [employer]. 07/27/2024 13:24:59 Caesarean Section completed [employer]. 07/27/2024 13:24:59 Partial Hysterectomy completed [employer]. 07/27/2024 13:24:59 Back Surgery completed [employer]. 03/11/2025 15:11:48 Imaging Results None recorded. Procedure Notes None recorded. Medical Equipment None Reported. Allergies Allergen ID Allergen Name Allergen Category Reaction Reaction Severity Criticality Documentation Date Start Date Code Code System Note Provider Name and Address Organization Details Recorded Time 16793 morphine medicatio n Not available Not available Not available 04/05/2025 7052 RxNorm Joie alvarado, [employer]. 14:00:02 Medications Name Sig Start Date Stop [...] Updated DateTime 5 172.72 cm 36.4 kg/m2 710580. 28 g 98.2 [degF] 85 /min 97 % 97 % 123 mm[Hg] 80 mm[Hg] Joie Shankar [employer] 5 14:02:28 Social History Question Answer Notes LastModified by Organizat ion Details LastModified Time Tobacco Smoking Status Former Smoker Joie alvarado [employer]. 12/11/2024 14:15:00 Do You Have An Advance [...] Information not available 08/17/2024 What Type Of Freight Service Inspector Do You Use? None Information not available [...] Do You Have A Medical Power Of Housekeeping Department Worker? No Information not available 07/27/2024 What Was [...] anxious, or unable to sleep at night)? [id number] Information not available 02/11/2025 Do you have [...] virus, trivalent, PF 4 completed SIRI Stevens [address] [place] [address], [address], [employer] 08/03/2024 10:54:01 Influenza, split virus, quadrivalent, preservative 7 completed Joie Shankar null, [employer] 12/11/2024 14:11:46 Influenza, split virus, trivalent, PF 8 completed Joie Shankar null, [employer] 12/11/2024 14:11:46 Td (adult), 2 Lf tetanus toxoid, preservative free, adsorbed 7 completed Joie Shankar null, [employer] 12/11/2024 14:11:46 Influenza, split virus, quadrivalent, PF 1 completed Joie Shankar null, [employer] 12/11/2024 14:11:46 Influenza, split virus, quadrivalent, PF 2 completed Joie Shankar null, [employer] 12/11/2024 14:11:46 Influenza, split virus, quadrivalent, PF 3 completed Joie Shankar null, [employer] 12/11/2024 14:11:46 Influenza, split virus, quadrivalent, PF 0 completed Joie Shankar null, [employer] 12/11/2024 14:11:46 Past Encounters Encounter ID Performer Location Encounter Start Date Encounter Closed Date Diagnosis/Indication Diagnosis SNOMED-CT Code Diagnosis ICD10 Code Diagnosis Note [id number] SIRI Stevens [facility] [address] [place] [address] 03/11/2025 15:00:51 03/11/2025 15:44:20 Type 2 diabetes mellitus 08719524 E11.9 Hga1c has gone up, but she was off Ozempic for a few weeks; will repeat next OV Depressive disorder 3548 9007 F32.A Vitamin D deficiency 347 18259 E55.9 Mixed hyperlipidemia 267 155754 E78.2 Essential hypertension 94097284 I10 Type 2 anshul betes mellitus without complication 636946908 E11.9 Cough 29042195 R05.9 [id number] SIRI Stevens [facility] [address] [facility] [place] [place] [address] 04/05/2025 13:46:18 04/05/2025 14:40:19 Acute low back pain 080804372 M54.50 Lumbar dis c prolapse with radiculopathy 583833883 M51.16 RTC if not improving Health Concerns Section Related Observation LastModified by Organization Detai ls LastModified Time None Recorded Concern Status LastModified by Organization Details LastModified Time None Recorded Payers Encounter Date Sequence Insurance Name Policy Number Policy Henry Covered Member ID Henry Member ID Guarantor Name 04/05/2025 1 [facility] (MEDICAID H[facility]) Jenny Barr [id number] Jenny Barr Notes Date Note Type Note [...] lumbar fusion back in October. SIRI Stevens [address] [place] [address], [place], [address], [place] [facility] [employer] 04/05/2025 15:44:44 OBGyn Episode No OBEpisode recorded.
--- OUTSIDE RECORDS SUMMARY | 2025-04-18 10:08 | XMS_ITS | Encounter Summary ---
Author Organization [facility] Address [address] [place] [address] Care Team Providers Care Lapping Machine Set Up Operator Name Role Phone Janet Chapman Primary Care Provider [phone] Clarence Rubin MD Unavailable Frankie Dalton MD Unavailable [phone] Frankie Dalton MD Unavailable [phone] eCli Murrell Unavailable [phone] Norberto West MD Unavailable [phone] Encounter Details Date Type Department Care Team (Latest Contact Info) Description 04/18/2025 Travel Social History Tobacco Use Types Packs/Day Years [...] Description 04/24/2025 1:40 PM EDT Office Visit [facility] [address], [address] [place] [address] Norberto West MD [address] [place] [address] documented as of this encounter Visit Diagnoses Not on filedocumented in this encounter Additional Health Concerns Assessment Noted Time A fall risk assessment has been complete d for the patient 02/06/2025 3:12 PM EDT A Body Mass Index follow-up plan has been documented for the patient 02/06/2025 6:10 PM EDT documented as of this encounter Care Teams Lapping Machine Set Up Operator Relationship Specialty Start Date End Date Janet Chapman PA [address] [place] [address] PCP - General 06/23/21 Clarence Rubin MD [address] [place] [address] Surgeon Neurosurgery 06/23/21 Frankie Dalton MD [address] [place] [address] Surgeon Neurosurgery 10/13/21 Frankie Dalton MD [address] [place] [address] Surgeon Neurosurgery 12/15/21 Celi Murrell PA [address] [place] [address] Physician Lead Assistant Manager Neurosurgery 04/01/22 Norberto West MD [address] [place] [address] Surgeon Neurosurgery 10/29/24 documented as of this encounter
--- OUTSIDE RECORDS SUMMARY | 2025-04-18 10:08 | XMS_ITS | Continuity of Care Document ---
Author Organization [place] - [employer], [facility] Address [address] [place] [address] Assessment No assessment recorded. Plan of Treatment Reminders Order Date Submit Date Provider Last Modified By Organization Details Last Modified Time Details Appointments FOLLOW UP 30 2024 08:00A Gerhard Chapman PA-C Not available Not available Not available Lab None recorded. Referral pain managemen t referral 2024 025 [email or web address] [facility], [facility] [address], [place], [address], 04/16/2025 15:17:55 Procedures None recorded. Surgeries None recorded. Imaging XR, lumbar spine 2024 025 [facility] Scheduling Department -New Scheduling Process, [address], [place], [address], 04/09/2025 15:57:02 Medication Orders tramadol 50 mg tablet 2024 025 [facility], [address], [address], [place], [address], 04/08/2025 15:16:37 cyclobenz aprine 10 mg tablet 2024 025 [facility], [address], [address], [place], [address], 04/08/2025 15:16:33 Patient TargetsNo targets recorded. Patient InstructionsNo instructions recorded. Reason for Referral Pain Management Referral for Lumbar disc prolapse with radiculopathy Referring Physician: Janet Chapman, Family Medicine, Encounter Date: 04/08/2025 Results Created Date Observation Date Name Description Value Unit Range Abnormal Flag Note LastModifiedBy Organization Detail LastModifiedTime 04/09/2004/08/2025 XR, lumba r spine No observ ation record ed. [facility] (Med Record) [address], [place], [address], 04/09/2025 17:00:20 Result Notes None recorded. Problems Name Problem SNOMED Code Status Onset Date Resolution Date Notes Provider Name and Address Organization Details Recorded Time Type 2 diabetes mellitus without complicat ion 509470387 Active 2023 SIRI Stevens [address] [place] [address], [address] 8, [employer] 13:39:01 Low back pain 913994215 Active 2023 SIRI Stevens [address] [place] [address], [address], [place] [employer] 13:38:53 Cough 74604803 Completed 202312/13/2024 SIRI Stevens [address] [place] [address], [address] 8, [place] [employer] 13:38:48 Depressiv e disorder 00273305 Active 2023 SIRI Stevens [address] [place] [address], [address] 8, [employer] 13:38:51 Viral gastroent eritis 916791947 Completed 202312/13/2024 SIRI Stevens [address] [place] [address], [address]69[address]921 8, [employer] 13:38:58 Severe dry skin 337222312 Completed 202412/13/2024 SIRI Stevens [address] [place] [address], [address] 8, [employer] 5 13:38:56 Vitamin D deficienc y 06595554 Active 2024 SIRI Stevens [address] [place] [address], 37[address] 8, [employer] 5 13:39:14 Pain in right foot 084600111003 107 Active 2024 SIRI Stevens [address] [place] [address], 135[address] 8, [employer] 5 11:00:51 Pain in pelvis 24139807 Active 2024 SIRI Stevens [address] [place] [address], 89950-617 8, [employer] 5 14:11:13 Mixed hyperlipi demia 862880079 Active 2024 SIRI Stevens [address] [place] [address], 28[address] 8, [employer] 5 15:50:47 Type 2 diabetes mellitus 79545968 Active 2024 SIRI Stevens [address] [place] [address], 09[address]907 8, [employer] 5 17:22:21 Lumbar disc prolapse with radiculop athy 510107193 Active 2024 SIRI Stevens [address] [place] [address], [address] 8, [employer] 5 15:43:38 Acute low back pain 677869258 Active 2024 SIRI Stevens [address] [place] [address], 82317-145 8, [employer] 5 09:12:29 Problem Notes None recorded. Procedures Surgical History Date Name Laterality Status Provider Name and Address Organization Details Recorded Time 12/26/19 25 Diabetic Foot Screen completed SIRI Stevens [address] [place] [address], [address], [employer] 12/25/2024 16:25:07 12/11/19 25 Diabetic Foot Screen completed SIRI Stevens [address] [place] [address], [place], [address], [employer] 12/11/2024 17:41:57 11/08/19 25 Back Surgery completed [employer] 03/11/2025 15:11:41 08/13/20 24 Most Recent Mammogram completed [employer] 12/25/2024 10:03:46 07/24/20 03 Date of Last Pap Smear completed [employer] 07/27/2024 13:30:19 Back Surgery completed [employer] 07/27/2024 13:24:59 Caesarean Section completed [employer] 07/27/2024 13:24:59 Partial Hysterectomy completed [employer] 07/27/2024 13:24:59 Back Surgery completed [employer] 03/11/2025 15:11:48 Imaging Results None recorded. Procedure Notes None recorded. Medical Equipment None Reported. Allergies Allergen ID Allergen Name Allergen Category Reaction Reaction Severity Criticality Documentation Date Start Date Code Code System Note Provider Name and Address Organization Details Recorded Time 70808 morphine medicatio n Not available Not available Not available 04/05/2025 7052 RxNorm Joie alvarado [employer] 14:00:02 Medications Name Sig Start Date [...] mg (42) tablets in a dose pack 02/18 /2025 completed Not Available Not Available Not Available [...] Updated DateTime 5 172.72 cm 36.9 kg/m2 697549. 51 g 97 % 97 % 78 /min 98.1 [degF] 128 mm[Hg] 80 mm[Hg] [facility] [employer] 5 14:40:50 Social History Question Answer Notes LastModified by Organizat ion Details LastModified Time Tobacco Smoking Status Former Smoker Joie Raad alvarado [facility] [employer] 12/11/2024 14:15:00 Do You Have An [...] Information not available 08/17/2024 What Type Of Wire Mesh Filter Fabricator Do You Use? None Information not available [...] Do You Have A Medical Power Of Special Needs Caregiver? No Information not available 07/27/2024 What Was [...] Status Question Answer Note LastModified by Organizat [employer] Details LastModified Time Do you feel stressed (tense, restless, nervous, or anxious, or unable to sleep at night)? [id number] Information not available 02/11/2025 Do you have [...] virus, trivalent, PF 4 completed SIRI Stevens [address] [place] [address], [address], [employer] 08/03/2024 10:54:01 Influenza, split virus, quadrivalent, preservative 7 completed Joie Shankar null, [employer] 12/11/2024 14:11:46 Influenza, split virus, trivalent, PF 8 completed Joie Shankar null, [employer] 12/11/2024 14:11:46 Td (adult), 2 Lf tetanus toxoid, preservative free, adsorbed 7 completed Joie Shankar null, [employer] 12/11/2024 14:11:46 Influenza, split virus, quadrivalent, PF 1 completed Joie Shankar null, [employer] 12/11/2024 14:11:46 Influenza, split virus, quadrivalent, PF 2 completed Joie Shankar null, [employer] 12/11/2024 14:11:46 Influenza, split virus, quadrivalent, PF 3 completed Joie Shankar null, [employer] 12/11/2024 14:11:46 Influenza, split virus, quadrivalent, PF 0 completed Joie Shankar [facility], [facility] 12/11/2024 14:11:46 Past Encounters Encounter ID Performer Location Encounter Start Date Encounter Closed Date Diagnosis/Indication Diagnosis SNOMED-CT Code Diagnosis ICD10 Code Diagnosis Note [id number] SIRI Stevens [facility] [address] [place] [address] 2 03/11/2025 15:00:51 03/11/2025 15:44:20 Type 2 diabetes mellitus 50542245 E11.9 Hga1c has gone up, but she was off Ozempic for a few weeks; will repeat next OV Depressive disorder 3548 9007 F32.A Vitamin D deficiency 347 32379 E55.9 Mixed hyperlipidemia 267 564061 E78.2 Essential hypertension 86144507 I10 Type 2 anshul betes mellitus without complication 097929848 E11.9 Cough 88113826 R05.9 [id number] SIRI Stevens [address] [address] 04/05/2025 13:46:18 04/05/2025 14:40:19 Acute low back pain 283397993 M54.50 Lumbar dis c prolapse with radiculopathy 448770719 M51.16 RTC if not improving [id number] SIRI Stevens [address] [address] 04/08/2025 14:33:39 04/08/2025 15:06:20 Lumbar disc prolapse with radiculopathy 951197771 M51.16 Health Concerns Section Related Observation LastModified by Organization Detai ls LastModified Time None Recorded Concern Status LastModified by Organization Details LastModified Time None Recorded Payers Encounter Date Sequence Insurance Name Policy Number Policy Henry Covered Member ID Henry Member ID Guarantor Name 04/08/2025 1 [employer] [facility] (MEDICAID HMO) Jenny Barr [id number] Jenny Barr Notes Date Note Type Note Provider Name and Address Organization Details Recorded Time 04/08/2025 text/html Patient states h er back is still very painful, possibly even worse. She has appointment with surgeon, but not until 04/24. She is unable to sleep. SIRI Stevens [address] [place] [address], [place], [address], [facility] [employer], [facility]. 04/08/2025 17:46:15 OBGyn Episode No OBEpisode recorded.
--- OUTSIDE RECORDS SUMMARY | 2025-04-18 10:09 | XMS_ITS | Continuity of Care Document ---
Author Organization [place] - [employer] [facility] Address [address] [place] [address] Assessment No assessment recorded. Plan of Treatment Reminders Order Date Submit Date Provider Last Modified By Organization Details Last Modified Time Details Appointments FOLLOW UP 30 2024 08:00A Gerhard Chapman PA-C Not available Not available Not available Lab HbA1c (hemoglob in A1c), blood 2024 025 [facility], [address] [facility], [place], [address], 03/11/2025 15:25:50 Referral None recorded. Procedures None recorded. Surgeries None recorded. Imaging None recorded. Medication Orders atorvasta tin 20 mg tablet 2024 025 [facility], [address] [place] [address], [place] [address], [place], [address], 03/11/2025 15:52:28 albuterol sulfate HFA 90 mcg/actua tion aerosol inhaler 2024 025 [facility], [address] [place] [address], [facility] 2, [place], [address], 03/11/2025 15:52:31 cholecalc iferol (vitamin D3) 50 mcg (2,000 unit) capsule 2024 025 [facility], [address] [place] [address], [facility], [place], [address], 03/11/2025 15:52:33 ergocalci ferol (vitamin D2) 1,250 mcg (50,000 unit) capsule 2024 025 [facility], [address] [place] [address], [facility], [place], [address], 03/11/2025 15:52:32 Ozempic 0.25 mg or 0.5 mg (2 mg/3 mL) subcutane ous pen injector 2024 025 [facility], [address] [place] [address], [facility], [place], [address], 03/11/2025 15:52:30 lisinopri l 10 mg tablet 2024 025 [facility], [address] [place] [address], [place] [address], [place], [address], 03/11/2025 15:52:29 escitalop tyrese 20 mg tablet 2024 025 [facility], [address] [place] [address], [facility], [place], [address], 03/11/2025 15:52:27 Rexulti 1 mg tablet 2024 025 [facility], [address] [place] [address], [place], [address], 03/11/2025 15:52:28 Patient TargetsNo targets recorded. Patient Instructions Encounter Date Encounter Id Patient Instructions Last Modified By Organization Details Last Modified Time 03/11/2025 [id number] learning about type 2 diabetes [email or web address] Not available 03/11/2025 15:16:41 type 2 diabetes: care instructions [email or web address] Not available 03/11/2025 15:16:41 learning about mood disorders [email or web address] Not available 03/11/2025 15:51:40 Reason for Referral None Reported. Results Created Date Observation Date Name Description Value Unit Range Abnormal Flag Note LastModifiedBy Organization Detail LastModifiedTime 03/11/20 25 03/11/2025 HbA1c (hemo globi n A1c), blood HbA1c 9.7 % Not Available [facility] [address] [facility], [place], [address], 03/11/2025 15:13:16 02/19/20 25 02/13/2025 US, trans vagin al No observ ation record ed. [address] Scheduling Department -New Scheduling Process [address] [facility] [address], [place], [address], 02/18/2025 17:57:24 02/22/20 25 02/19/2025 CT, abdom en + pelvi s, w/o contr ast No observ ation record ed. [address] (Med Record) [facility] [address], [place], [address], 02/21/2025 12:57:20 03/04/20 25 02/25/2025 US, gallb ladde r No observ ation record ed. [address] Scheduling Department -New Scheduling Process [facility] [address], [place], [address], 03/07/2025 10:29:58 04/09/20 25 04/08/2025 XR, lumba r spine No observ ation record ed. [address] (Med Record) [facility] [address], [place], [address], 04/09/2025 17:00:20 Result Notes None recorded. Problems Name Problem SNOMED Code Status Onset Date Resolution Date Notes Provider Name and Address Organization Details Recorded Time Type 2 diabetes mellitus without complicat ion 610744251 Active 2023 SIRI Stevens [address] [place] [address], [address], [facility] [employer] 13:39:01 Low back pain 599326450 Active 2023 SIRI Stevens [address] [place] [address], [address] 8, [facility] 13:38:53 Cough 88612077 Completed 202312/13/2024 SIRI Stevens [address] [place] [address], [address] 8, [employer] 13:38:48 Depressiv e disorder 84761323 Active 2023 SIRI Stevens [address] [place] [address], [address] 8, [employer] 13:38:51 Viral gastroent eritis 366221141 Completed 202312/13/2024 SIRI Stevens [address] [place] [address], [address] 8, [employer] 13:38:58 Severe dry skin 887143927 Completed 202412/13/2024 SIRI Stevens [address] [place] [address], [address] 8, [employer] 13:38:56 Vitamin D deficienc y 88008474 Active 2024 SIRI Stevens [address] [place] [address], [address]64[address]782 8, [employer] 13:39:14 Pain in right foot 982108363341 107 Active 2024 SIRI Stevens [address] [place] [address], 63468[address]997 8, [employer] 11:00:51 Pain in pelvis 17097290 Active 2024 SIRI Stevens [address] [place] [address], 58[address] 8, [employer] 14:11:13 Mixed hyperlipi demia 529680700 Active 2024 SIRI Stevens [address] [place] [address], 18483[address]536 8, [employer] 15:50:47 Type 2 diabetes mellitus 06620533 Active 2024 SIRI Stevens [address] [place] [address], 599[address]348 8, [employer] 17:22:21 Lumbar disc prolapse with radiculop athy 633420165 Active 2024 SIRI Stevens [address] [place] [address], 448[address]295 8, [employer] 15:43:38 Acute low back pain 769951917 Active 2024 SIRI Stevens [address] [place] [address], 329[address]320 8, [employer] 09:12:29 Problem Notes None recorded. Procedures Surgical History Date Name Laterality Status Provider Name and Address Organization Details Recorded Time 12/26/19 25 Diabetic Foot Screen completed SIRI Stevens [address] [place] [address], [address], [employer] 12/25/2024 16:25:07 12/11/19 25 Diabetic Foot Screen completed SIRI Stevens [address] [place] [address], [address], [employer] 12/11/2024 17:41:57 11/08/19 25 Back Surgery completed [employer] 03/11/2025 15:11:41 08/13/20 24 Most Recent Mammogram completed [employer] 12/25/2024 10:03:46 07/24/20 03 Date of Last Pap Smear completed [employer] 07/27/2024 13:30:19 Back Surgery completed [employer] 07/27/2024 13:24:59 Caesarean Section completed [employer] 07/27/2024 13:24:59 Partial Hysterectomy completed [employer] 07/27/2024 13:24:59 Back Surgery completed [employer] 03/11/2025 15:11:48 Imaging Results None recorded. Procedure Notes None recorded. Medical Equipment None Reported. Allergies Allergen ID Allergen Name Allergen Category Reaction Reaction Severity Criticality Documentation Date Start Date Code Code System Note Provider Name and Address Organization Details Recorded Time 25771 morphine medicatio n Not available Not available Not available 04/05/2025 7052 RxNorm Joietwyla alvarado [facility] [employer] [facility]. 14:00:02 Medications Name Sig Start Date Stop [...] 2024 active Not Available Not Available Not Pierce kessler Clenpiq 10 mg-3.5 gram-12 gram/175 mL oral solution 07/27 completed Not Available Not Available Not Available Vitals Date Recorded Body height Body mass index (BMI) Body weight Body temperature Oxygen saturation Oxygen saturation in Arterial blood by Pulse oximetry Heart rate Systolic blood pressure Diastolic blood pressure Provider Name and Address Organization Details Last Updated DateTime 172.72 cm 36.6 kg/m2 418822. 04 g 98.3 [degF] 96 % 96 % 76 /min 122 mm[Hg] 76 mm[Hg] [facility] [employer]. 15:09:38 Social History Question Answer Notes LastModified by Organizat ion Details LastModified Time Tobacco Smoking Status Former Smoker Joie alvarado [employer]. 12/11/2024 14:15:00 Do You Have An Advance [...] Information not available 08/17/2024 What Type Of Hand Cementer Do You Use? 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 [id number] Information not available 02/11/2025 Do you have [...] virus, trivalent, PF 4 completed SIRI Stevens [address] [place] [address], [address], [employer] 08/03/2024 10:54:01 Influenza, split virus, quadrivalent, preservative 7 completed Joie alvarado [employer] 12/11/2024 14:11:46 Influenza, split virus, trivalent, PF 8 completed Joie Shankar null, [employer] 12/11/2024 14:11:46 Td (adult), 2 Lf tetanus toxoid, preservative free, adsorbed 7 completed Joie Shankar null, [employer] 12/11/2024 14:11:46 Influenza, split virus, quadrivalent, PF 1 completed Joie Shankar null, [employer] 12/11/2024 14:11:46 Influenza, split virus, quadrivalent, PF 2 completed Joie Shankar null, [employer] 12/11/2024 14:11:46 Influenza, split virus, quadrivalent, PF 3 completed Joie Shankar null, [employer] 12/11/2024 14:11:46 Influenza, split virus, quadrivalent, PF 0 completed Joie Shankar null, [employer] 12/11/2024 14:11:46 Past Encounters Encounter ID Performer Location Encounter Start Date Encounter Closed Date Diagnosis/Indication Diagnosis SNOMED-CT Code Diagnosis ICD10 Code Diagnosis Note [id number] SIRI Stevens [facility] [address] [place] [address] 2 02/11/2025 13:40:39 02/11/2025 14:15:03 Burping 459953176 R14.2 Pain in pelvis 08703129 R10.2 [id number] SIRI Stevens [facility] [address] [place] [address] 2 03/11/2025 15:00:51 03/11/2025 15:44:20 Type 2 diabetes mellitus 08989924 E11.9 Hga1c has gone up, but she was off Ozempic for a few weeks; will repeat next OV Depressive disorder 3548 9007 F32.A Vitamin D deficiency 347 53922 E55.9 Mixed hyperlipidemia 267 242965 E78.2 Essential hypertension 86232139 I10 Type 2 anshul betes mellitus without complication 873833289 E11.9 Cough 02880916 R05.9 Health Concerns Section Related Observation LastModified by Organization Detai ls LastModified Time None Recorded Concern Status LastModified by Organization Details LastModified Time None Recorded Payers Encounter Date Sequence Insurance Name Policy Number Policy Henry Covered Member ID Henry Member ID Guarantor Name 03/11/2025 1 [employer] [facility] (MEDICAID HMO) Jenny Barr [id number] Jenny Barr Notes Date Note Type Note Provider Name and Address Organization Details Recorded Time 03/11/2025 text/html Patient presents for followup. Due for refills. Has intermittent pain in right hand. HgA1c has gone up - she had lumbar fusion roughly 6 weeks ago and was off some of her meds for a while. SIRI Stevens [address] [place] [address], [place], [address], [facility] [employer] 03/11/2025 17:22:47 OBGyn Episode No OBEpisode recorded.
--- OUTSIDE RECORDS SUMMARY | 2025-04-18 10:09 | XMS_ITS | Data Portability ---
Author Organization [facility] [employer] [employer] [place] - [place] Address [address] [place] [address] Assessment No assessment recorded. Plan of Treatment Reminders Order Date Submit Date Provider Last Modified By Organization Details Last Modified Time Details Appointments FOLLOW UP 30 2024 08:00A Gerhard Chapman PA-C Not available Not available Not available Lab HbA1c (hemoglob in A1c), blood [address], [address] [place] [address], [address], 03/11/2025 15:25:50 H pylori urea breath test, co2 infrared 2024 025 [facility] [address] [place], [address], 02/12/2025 14:13:20 TSH, ultra-sen sitive, serum 2024 025 [facility]), [address] [place], [address], 01/01/2025 09:08:21 rf (rheumato id factor), serum 2024 025 [facility] [address] [place], [address], 01/01/2025 09:08:22 C reactive protein, QN, serum or plasma 2024 025 [facility] [address] [place], [address], 01/01/2025 09:08:25 erythrocy te sedimenta tion rate by samaria n method 2024 025 [facility] ([place]), [address] [place], [address], 01/01/2025 09:08:23 MARITA (antinucl ear antibodie s) screen, serum 2024 025 [facility] ([place]), [address] [place], [address], 01/01/2025 09:08:23 ccp (cyclic citrullin ated peptide) iga+igg, serum 2024 025 [facility] ([place]), [address] [place], [address], 01/01/2025 09:08:23 testoster one, total, serum 2024 025 [facility] ([place]), [address] [place], [address], 01/01/2025 09:08:22 lh + FSH, serum 2024 025 [facility] ([place]), [address] [place], [address], 01/01/2025 09:08:21 progester one, serum 2024 025 [facility] ([place]), [address] [place], [address], 01/01/2025 09:08:24 estrogen, total, serum 2024 025 [facility]), [address] [place], [address], 01/01/2025 09:08:24 Referral pain managemen t referral 2024 025 [email or web address] [facility], [address], [address], [place], [place], [address], 04/16/2025 15:17:55 Procedures None recorded. Surgeries None recorded. Imaging XR, lumbar spine 2024 025 [facility] Scheduling Department -New Scheduling Process, [address], [place], [address], 04/09/2025 15:57:02 US, transvagi nal 2024 025 [facility] Scheduling Department -New Scheduling Process, [address], [place], [address], 02/18/2025 10:31:05 CT, abdomen + pelvis, w/o contrast - first available appt 2024 025 [facility] Scheduling Department -New Scheduling Process, [address], [place], [address], 02/21/2025 11:01:24 XR, foot, 3 or more view 2024 025 [facility] Scheduling Department -New Scheduling Process, [facility], [place], [address], 01/01/2025 13:36:53 Medication Orders tramadol 50 mg tablet 2024 025 [facility], [address] [place] [address], [address], [place], [address], 04/08/2025 15:16:37 cyclobenz aprine 10 mg tablet 2024 025 [facility], [address] [place] [address], [address], [place], [place], [address], 04/08/2025 15:16:33 ketorolac 60 mg/2 mL intramusc ular solution [address] [facility], [address] [place] [address], [address], [place], [address], 04/08/2025 14:41:06 Depo-Medr ol 80 mg/mL suspensio n for injection [address], [address] [place] [address], [facility], [place], [address], 04/08/2025 14:41:02 prednison e 20 mg tablet 2024 025 [facility], [address] [place] [address], [facility], [place], [address], 04/05/2025 15:47:36 atorvasta tin 20 mg tablet 2024 025 [facility], [address] [place] [address], [facility], [place], [address], 03/11/2025 15:52:28 albuterol sulfate HFA 90 mcg/actua tion aerosol inhaler 2024 025 [facility], [address] [place] [address], [facility], [place], [address], 03/11/2025 15:52:31 cholecalc iferol (vitamin D3) 50 mcg (2,000 unit) capsule 2024 025 [facility], [address] [place] [address], [facility], [place], [address], 03/11/2025 15:52:33 ergocalci ferol (vitamin D2) 1,250 mcg (50,000 unit) capsule 2024 025 [facility], [address] [place] [address], [facility], [place], [address], 03/11/2025 15:52:32 Ozempic 0.25 mg or 0.5 mg (2 mg/3 mL) subcutane ous pen injector 2024 025 [facility], [address] [place] [address], [address], [place], [address], 03/11/2025 15:52:30 lisinopri l 10 mg tablet 2024 025 [facility], [address] [place] [address], [facility], [place], [address], 03/11/2025 15:52:29 escitalop tyrese 20 mg tablet 2024 025 [facility], [address] [place] [address], [facility], [place], [address], 03/11/2025 15:52:27 Rexulti 1 mg tablet 2024 025 [facility], [address] [place] [address], [facility], [place], [address], 03/11/2025 15:52:28 Patient TargetsNo targets recorded. Patient Instructions Encounter Date Encounter Id Patient Instructions Last Modified By Organization Details Last Modified Time 12/25/2024 [id number] Decreased Female Libido: Care Instructions [email or web address] Not available 12/25/2024 11:27:17 03/11/2025 [id number] learning about type 2 diabetes [email or web address] Not available 03/11/2025 15:16:41 type 2 diabetes: care instructions [email or web address] Not available 03/11/2025 15:16:41 learning about mood disorders [email or web address] Not available 03/11/2025 15:51:40 Reason for Referral Pain Management Referral for Lumbar disc prolapse with radiculopathy Referring Physician: Janet Chapman, Family Medicine, Encounter Date: 04/08/2025 Results Created Date Observation Date Name Description Value Unit Range Abnormal Flag Note LastModifiedBy Organization Detail LastModifiedTime 12/11/1912/12/2024 CBC WITH DIFFE RENTI AL/PL ATELE T WBC 9.0 x10e3 /uL 3.4-10 .8 normal Not Available [facility] ([facility]) [address] [facility], [place], [address], 12/12/2024 08:11:56 12/11/19 25 12/12/2024 CBC WITH DIFFE RENTI AL/PL ATELE T RBC 4.22 x10e6 /uL 3.77-5 .28 normal Not Available [facility] ([facility]) [address] [place], [address], 12/12/2024 08:11:56 12/11/19 25 12/12/2024 CBC WITH DIFFE RENTI AL/PL ATELE T hemoglobin 12.9 g/dL 11.1-1 5.9 normal Not Available [facility] ([facility]) [address] [place], [address], 12/12/2024 08:11:56 12/11/19 25 12/12/2024 CBC WITH DIFFE RENTI AL/PL ATELE T hematocrit 38.4 % 34.0-4 6.6 normal Not Available [facility] ([facility]) [address] [place], [address], 12/12/2024 08:11:56 12/11/19 25 12/12/2024 CBC WITH DIFFE RENTI AL/PL ATELE T MCV 91 fL 79-97 normal Not Available [facility] ([facility]) [address] [place], [address], 12/12/2024 08:11:56 12/11/19 25 12/12/2024 CBC WITH DIFFE RENTI AL/PL ATELE T MCH 30.6 pg 26.6-3 3.0 normal Not Available [facility] ([facility]) [address] [place], [address], 12/12/2024 08:11:56 12/11/1912/12/2024 CBC WITH DIFFE RENTI AL/PL ATELE T MCHC 33.6 g/dL 31.5-3 5.7 normal Not Available [facility] ([facility]) [address] [place], [address], 12/12/2024 08:11:56 12/11/19 25 12/12/2024 CBC WITH DIFFE RENTI AL/PL ATELE T RDW 11.5 % 11.7-1 5.4 below low normal Not Available [facility] ([facility]) [address] [facility], [place], [address], 12/12/2024 08:11:56 12/11/19 25 12/12/2024 CBC WITH DIFFE RENTI AL/PL ATELE T platelets 356 x10e3 /uL 150-45 0 normal Not Available [facility] ([facility]) [address] [facility], [place], [address], 12/12/2024 08:11:56 12/11/19 25 12/12/2024 CBC WITH DIFFE RENTI AL/PL ATELE T neutrophils 66 % not estab. normal Not Available [facility] ([facility]) [address] [facility], [place], [address], 12/12/2024 08:11:56 12/11/19 25 12/12/2024 CBC WITH DIFFE RENTI AL/PL ATELE T lymphs 28 % not estab. normal Not Available [facility] ([facility]) [address] [facility], [place], [address], 12/12/2024 08:11:56 12/11/19 25 12/12/2024 CBC WITH DIFFE RENTI AL/PL ATELE T monocytes 5 % not estab. normal Not Available [facility] ([facility]) [address] [facility], [place], [address], 12/12/2024 08:11:56 12/11/19 25 12/12/2024 CBC WITH DIFFE RENTI AL/PL ATELE T eos 1 % not estab. normal Not Available [facility] ([facility]) [address] [facility], [place], [address], 12/12/2024 08:11:56 12/11/19 25 12/12/2024 CBC WITH DIFFE RENTI AL/PL ATELE T basos 0 % not estab. normal Not Available [facility] ([facility]) [address] [place], [address], 12/12/2024 08:11:56 12/11/19 25 12/12/2024 CBC WITH DIFFE RENTI AL/PL ATELE T immature cells DRAGLINE MECHANIC Not Available [facility] ([facility]) [address] [place], [address], 12/12/2024 08:11:56 12/11/19 25 12/12/2024 CBC WITH DIFFE RENTI AL/PL ATELE T neutrophils (absolute) 5.9 x10e3 /uL 1.4-7. 0 normal Not Available [facility] ([facility]) [address] [place], [address], 12/12/2024 08:11:56 12/11/19 25 12/12/2024 CBC WITH DIFFE RENTI AL/PL ATELE T lymphs (absolute) 2.5 x10e3 /uL 0.7-3. 1 normal Not Available [facility] ([facility]) [address] [place], [address], 12/12/2024 08:11:56 12/11/19 25 12/12/2024 CBC WITH DIFFE RENTI AL/PL ATELE T monocytes(ab solute) 0.5 x10e3 /uL 0.1-0. 9 normal Not Available [facility] ([facility]) [address] [place], [address], 12/12/2024 08:11:56 12/11/19 25 12/12/2024 CBC WITH DIFFE RENTI AL/PL ATELE T eos (absolute) 0.1 x10e3 /uL 0.0-0. 4 normal Not Available [facility] ([facility]) [address] [place], [address], 12/12/2024 08:11:56 12/11/19 25 12/12/2024 CBC WITH DIFFE RENTI AL/PL ATELE T baso (absolute) 0.0 x10e3 /uL 0.0-0. 2 normal Not Available [facility] ([facility]) [address] [facility], [place], [address], 12/12/2024 08:11:56 12/11/19 25 12/12/2024 CBC WITH DIFFE RENTI AL/PL ATELE T immature granulocytes 0 % not estab. Not Available [facility] ([facility]) [address] [facility], [place], [address], 12/12/2024 08:11:56 12/11/19 25 12/12/2024 CBC WITH DIFFE RENTI AL/PL ATELE T immature grans (abs) 0.0 x10e3 /uL 0.0-0. 1 Not Available [facility] ([facility]) [address] [facility], [place], [address], 12/12/2024 08:11:56 12/11/19 25 12/12/2024 CBC WITH DIFFE RENTI AL/PL ATELE T NRBC DRAGLINE MECHANIC Not Available [facility] ([facility]) [address] [place], [address], 12/12/2024 08:11:56 12/11/19 25 12/12/2024 CBC WITH DIFFE RENTI AL/PL ATELE T hematology comments: DRAGLINE MECHANIC Not Available [facility] ([facility]) [address] [place], [address], 12/12/2024 08:11:56 12/11/19 25 12/12/2024 COMP. METAB OLIC PANEL (14) glucose 132 mg/dL 70-99 above high normal Not Available [facility] ([facility]) [address] [place], [address], 12/12/2024 08:11:57 12/11/19 25 12/12/2024 COMP. METAB OLIC PANEL (14) BUN 10 mg/dL 6-24 normal Not Available [facility] ([facility]) [address] [place] [place], [address], 12/12/2024 08:11:57 12/11/19 25 12/12/2024 COMP. METAB OLIC PANEL (14) creatinine 0.91 mg/dL 0.57-1 .00 normal Not Available [facility] ([facility]) [address] [facility] [place], [address], 12/12/2024 08:11:57 12/11/19 25 12/12/2024 COMP. METAB OLIC PANEL (14) eGFR 76 mL/mi n/1.7 3 >59 normal Not Available [facility] ([facility]) [address] [facility], [place], [address], 12/12/2024 08:11:57 12/11/19 25 12/12/2024 COMP. METAB OLIC PANEL (14) BUN/creatini ne ratio 11 9-23 normal Not Available [facility] ([facility]) [address] [facility] [place], [address], 12/12/2024 08:11:57 12/11/19 25 12/12/2024 COMP. METAB OLIC PANEL (14) sodium 138 mmol/ L 134-14 4 normal Not Available [facility] ([facility]) [address] [facility] [place], [address], 12/12/2024 08:11:57 12/11/19 25 12/12/2024 COMP. METAB OLIC PANEL (14) potassium 4.4 mmol/ L 3.5-5. 2 normal Not Available [facility] ([facility]) [address] [facility] [place], [address], 12/12/2024 08:11:57 12/11/19 25 12/12/2024 COMP. METAB OLIC PANEL (14) chloride 103 mmol/ L 96-106 normal Not Available [facility] ([facility]) [address] [facility] [place], [address], 12/12/2024 08:11:57 12/11/19 25 12/12/2024 COMP. METAB OLIC PANEL (14) carbon dioxide, total 21 mmol/ L 20-29 normal Not Available [facility] ([facility]) [address] [facility] [place], [address], 12/12/2024 08:11:57 12/11/19 25 12/12/2024 COMP. METAB OLIC PANEL (14) calcium 9.0 mg/dL 8.7-10 .2 normal Not Available [facility] ([facility]) [address] [facility] [place], [address], 12/12/2024 08:11:57 12/11/19 25 12/12/2024 COMP. METAB OLIC PANEL (14) protein, total 7.0 g/dL 6.0-8. 5 normal Not Available [facility] ([facility]) [address] [facility] [place], [address], 12/12/2024 08:11:57 12/11/19 25 12/12/2024 COMP. METAB OLIC PANEL (14) albumin 4.0 g/dL 3.8-4. 9 normal Not Available [facility] ([facility]) [address] [facility] [place], [address], 12/12/2024 08:11:57 12/11/19 25 12/12/2024 COMP. METAB OLIC PANEL (14) globulin, total 3.0 g/dL 1.5-4. 5 Not Available [facility] ([facility]) [address] [facility] [place], [address], 12/12/2024 08:11:57 12/11/19 25 12/12/2024 COMP. METAB OLIC PANEL (14) bilirubin, total 0.2 mg/dL 0.0-1. 2 normal Not Available [facility] ([facility]) [address] [place], [address], 12/12/2024 08:11:57 12/11/19 25 12/12/2024 COMP. METAB OLIC PANEL (14) alkaline phosphatase 133 IU/L 44-121 above high normal Not Available [facility] ([facility]) [address] [facility] [place], [address], 12/12/2024 08:11:57 12/11/19 25 12/12/2024 COMP. METAB OLIC PANEL (14) AST (SGOT) 32 IU/L 0-40 normal Not Available [facility] ([facility]) [address] [facility] [place], [address], 12/12/2024 08:11:57 12/11/19 25 12/12/2024 COMP. METAB OLIC PANEL (14) ALT (SGPT) 69 IU/L 0-32 above high normal Not Available [facility] ([facility]) [address] [place], [address], 12/12/2024 08:11:57 12/11/19 25 12/12/2024 LIPID PANEL cholesterol, total 186 mg/dL 100-19 9 normal Not Available [facility] ([facility]) [address] [place], [address], 12/12/2024 08:11:57 12/11/19 25 12/12/2024 LIPID PANEL triglyceride s 115 mg/dL 0-149 normal Not Available [facility] ([facility]) [address] [place], [address], 12/12/2024 08:11:57 12/11/19 25 12/12/2024 LIPID PANEL HDL cholesterol 45 mg/dL >39 normal Not Available [facility] ([facility]) [address] [place], [address], 12/12/2024 08:11:57 12/11/19 25 12/12/2024 LIPID PANEL VLDL cholesterol lamont 21 mg/dL 5-40 Not Available [facility] ([facility]) [address] [facility], [place], [address], 12/12/2024 08:11:57 12/11/19 25 12/12/2024 LIPID PANEL LDL chol calc ([facility]) 120 mg/dL 0-99 above high normal Not Available [facility] ([facility]) [address] [facility], [place], [address], 12/12/2024 08:11:57 12/11/19 25 12/12/2024 LIPID PANEL LDL calc comment: DRAGLINE MECHANIC Not Available [facility] ([facility]) [address] [facility], [place], [address], 12/12/2024 08:11:57 12/11/19 25 12/12/2024 HCV ANTIB JOANN CASCA DE(PC R/GEN O) HCV Ab NON REACTI VE non reacti ve Not Available [facility] ([facility]) [address] [facility], [place], [address], 12/12/2024 08:11:58 12/11/1912/12/2024 HCV ANTIB JOANN CASCA DE(PC R/GEN O) interpretati on: COMMEN T Not infec bimal with HCV unles s early or acute infec tion is suspe cted (whic h may be delay ed in an immun ocomp romis ed indiv idual ), or other evide nce exist s to indic ate HCV infec tion. Not Available [facility] ([facility]) [address] [facility], [place], [address], 12/12/2024 08:11:58 12/11/1912/12/2024 TSH TSH 0.542 uIU/m L 0.450- 4.500 normal Not Available [facility] ([facility]) [address] [facility], [place], [address], 12/12/2024 08:11:58 12/11/19 25 12/12/2024 VITAM IN D, 25-HY DROXY vitamin D, [...] IOM (Inst itute of Medic ine). 2010. Purvi ry refer ence niraj es for calci um and D. Alfredo gutierrez [place]: The [facility] . 2. Josue chan [place], Thea brown [place], [place] off-F errar i DOMINGUEZ, et al. Evalu ation , treat ment, and preve ntion of vitam in D defic iency : an Endoc rine Socie ty clini lamont pract ice guide line. JCEM. 2010; 96(7) :1911 -30. Not Available [facility] ([facility]) [address] [facility], [place], [address], 12/12/2024 08:11:59 12/11/19 25 12/12/2024 HIV AB/P2 4 AG WITH REFLE X HIV Ab/P24 Ag screen NON REACTI VE non reacti ve HIV Negat jamila HIV-1 /HIV- 2 antib odies and HIV-1 p24 antig en were NOT detec bimal. There is no labor atory evide nce of HIV infec tion. Not Available [facility] ([facility]) [address] [facility], [place], [address], 12/12/2024 08:11:59 12/11/19 25 12/11/2024 micro album in/cr eatin ine, mass ratio , urine Microalbumin 10 mg/L Not Available [facility], [place], [address], 12/11/2024 14:24:45 12/11/19 25 12/11/2024 micro album in/cr eatin ine, mass ratio , urine Creatinine 50 mg/dL Not Available [facility] [address] [facility], [place], [address], 12/11/2024 14:24:45 12/11/19 25 12/11/2024 micro album in/cr eatin ine, mass ratio , urine Ratio <30 mg/g Not Available [facility] [address] [facility], [place], [address], 12/11/2024 14:24:45 12/11/19 25 12/11/2024 HbA1c (hemo globi n A1c), blood HbA1c 6.8 % Not Available [facility] [address] [facility], [place], [address], 12/11/2024 14:17:50 12/26/19 25 12/26/2024 FSH AND LH LH 40.9 mIU/m L normal Adult Femal e Range Folli cular phase 2.4 - 12.6 Ovula tion phase 14.0 - 95.6 Lutea l phase 1.0 - 11.4 Postm enopa usal 7.7 - 58.5 Not Available [facility] ([facility]) [address] [place], [address], 01/01/2025 09:08:21 12/26/19 25 12/26/2024 FSH AND LH FSH 56.4 mIU/m L Adult Femal e Range Folli cular phase 3.5 - 12.5 Ovula tion phase 4.7 - 21.5 Lutea l phase 1.7 - 7.7 Postm enopa usal 25.8 - 134.8 Not Available [facility] ([facility]) [address] [place], [address], 01/01/2025 09:08:21 12/26/1912/26/2024 TSH TSH 0.508 uIU/m L 0.450- 4.500 normal Not Available [facility] ([facility]) [address] [facility], [place], [address], 01/01/2025 09:08:21 12/26/19 25 12/26/2024 RHEUM ATOID FACTO R (RF) rheumatoid factor (rf) <10.0 IU/mL <14.0 Not Available [facility] ([facility]) [address] [facility], [place], [address], 01/01/2025 09:08:22 12/26/1901/01/2025 TESTO STERO NE, TOTAL , LC/MS testosterone , total, lc/MS 24 NG/dL This test was devel xaviered and its perfo rmanc e titi cteri stics deter mined by [facility]. It has not been clear ed or appro laura by the Food and Drug Admin istra tion. Refer ence Range : Adult Femal es Preme nopau koby 10 - 55 Postm enopa usal 7 - 40 Not Available [facility] [address] [facility], [place], [address], 01/01/2025 09:08:22 12/26/19 25 12/26/2024 ANTI- CCP AB, IGG/I GA anti-ccp Ab, IgG/IgA 4 units 0-19 Negat jamila <20 Weak posit jamila 20 - 39 Moder ate posit jamila 40 - 59 Stron g posit jamila >59 Not Available [facility] ([facility]) [address] [facility], [place], [address], 01/01/2025 09:08:22 12/26/1912/26/2024 ANTIN UCLEA R AB MULTI PLEX RFX 9 MARITA direct Negati ve negati ve Not Available [facility] ([facility]) [address] [facility], [place], [address], 01/01/2025 09:08:23 12/26/19 25 12/26/2024 SEDIM ENTAT ION RATE- WESTE RGREN sedimentatio n rate-westerg elsie 30 mm/HR 0-40 normal Not Available [facility] ([facility]) [address] [place], [address], 01/01/2025 09:08:23 12/26/19 25 12/26/2024 PROGE STERO NE progesterone 0.2 NG/mL normal Folli cular phase 0.1 - 0.9 Lutea l phase 1.8 - 23.9 Ovula tion phase 0.1 - 12.0 Pregn ant First trime ster 11.0 - 44.3 Secon d trime ster 25.4 - 83.3 Third trime ster 58.7 - 214.0 Postm enopa usal 0.0 - 0.1 Not Available [facility] ([facility]) [address] [place], [address], 01/01/2025 09:08:24 12/26/19 25 12/28/2024 ESTRO GENS, TOTAL estrogens, total 64 pg/mL normal Prepu isabella l < 40 Femal e Cycle : 1-10 Days 16 - 328 11-20 Days 34 - 501 21-30 Days 48 - 350 Post- Menop ausal 40 - 244 Not Available [facility] ([facility]) [address] [place], [address], 01/01/2025 09:08:24 12/26/19 25 12/26/2024 C-SCOTT CTIVE PROTE IN, QUANT C-reactive protein, quant 7 mg/L 0-10 normal Not Available [facility] ([facility]) [address] [place], [address], 01/01/2025 09:08:25 02/12/20 25 02/12/2025 H PYLOR I BREAT H TEST H pylori breath test Negati ve negati ve Not Available [facility] ([facility]) [address] [place], [address], 02/12/2025 14:13:20 03/11/20 25 03/11/2025 HbA1c (hemo globi n A1c), blood HbA1c 9.7 % Not Available [facility] [address] [facility] [facility], [place], [address], 03/11/2025 15:13:16 01/02/20 25 12/26/2024 XR, foot, 3 or more view No observ ation record ed. [address] (Med Record) [address] [place] [address] [address], [place], [address], 01/01/2025 14:29:34 02/19/20 25 02/13/2025 US, trans vagin al No observ ation record ed. [address] Scheduling Department -New Scheduling Process [address] [place] [address] [address], [place], [address], 02/18/2025 17:57:24 02/22/20 25 02/19/2025 CT, abdom en + pelvi s, w/o contr ast No observ ation record ed. [address] (Med Record) [address] [place] [address] [address], [place], [address], 02/21/2025 12:57:20 03/04/20 25 02/25/2025 US, gallb ladde r No observ ation record ed. [address] Scheduling Department -New Scheduling Process [address] [place] [address] [address], [place], [address], 03/07/2025 10:29:58 04/09/20 25 04/08/2025 XR, lumba r spine No observ ation record ed. [address] (Med Record) [address] [place] [address] [address], [place], [address], 04/09/2025 17:00:20 Result Notes None recorded. Problems Name Problem SNOMED Code Status Onset Date Resolution Date Notes Provider Name and Address Organization Details Recorded Time Type 2 diabetes mellitus without complicat ion [id number] Active 2023 SIRI Stevens [address] [place] [address], [address] 8, [employer] 13:39:01 Low back pain 807406100 Active 2023 SIRI Stevens [address] [place] [address], 30[address]-571 8, [employer] 13:38:53 Cough 14460335 Completed 202312/13/2024 SIRI tSevens [address] [place] [address], 09472-255 8, [employer] [facility] 13:38:48 Depressiv e disorder 57953340 Active 2023 SIRI Stevens [address] [place] [address], 99141-776 8, [employer] [facility] 13:38:51 Viral gastroent eritis 704643173 Completed 202312/13/2024 SIRI Stevens [address] [place] [address], 95005-664 8, [facility] 13:38:58 Severe dry skin 514789955 Completed 202412/13/2024 SIRI Stevens [address] [place] [address], 74619-128 8, [facility] [facility] 13:38:56 Vitamin D deficienc y 86471022 Active 2024 SIRI Stevens [address] [place] [address], 95484-136 8, [facility] [employer] 13:39:14 Pain in right foot 273082022614 107 Active 2024 SIRI Stevens [address] [place] [address], 68558-650 8, [facility] [employer] 11:00:51 Pain in pelvis 80114407 Active 2024 SIRI Stevens [address] [place] [address], 73026-345 8, [facility] [facility] [employer] 5 14:11:13 Mixed hyperlipi demia 296403028 Active 2024 SIRI Stevens [address] [place] [address], 10370-273 8, [facility] [facility] 5 15:50:47 Type 2 diabetes mellitus 08470685 Active 2024 SIRI Stevens [address] [place] [address], 95076-267 8, [facility] [facility] [employer] 5 17:22:21 Lumbar disc prolapse with radiculop athy 137417451 Active 2024 SIRI Stevens [address] [place] [address], 16506-290 8, [facility] [facility] [employer] 15:43:38 Acute low back pain 349716692 Active 2024 SIRI Stevens [address] [place] [address], 11850-002 8, [facility] [facility] [employer] 09:12:29 Problem Notes None recorded. Procedures Surgical History Date Name Laterality Status Provider Name and Address Organization Details Recorded Time 12/26/19 25 Diabetic Foot Screen completed SIRI Stevens [address] [place] [address], [address], [facility] [facility] [employer] 12/25/2024 16:25:07 12/11/19 25 Diabetic Foot Screen completed SIRI Stevens [address] [place] [address], [address], [facility] 12/11/2024 17:41:57 11/08/19 25 Back Surgery completed [facility] 03/11/2025 15:11:41 08/13/20 24 Most Recent Mammogram completed [facility] 12/25/2024 10:03:46 07/24/20 03 Date of Last Pap Smear completed [facility] 07/27/2024 13:30:19 Back Surgery completed [employer] 07/27/2024 13:24:59 Caesarean Section completed [email or web address] 07/27/2024 13:24:59 Partial Hysterectomy completed [employer] 07/27/2024 13:24:59 Back Surgery completed [employer] 03/11/2025 15:11:48 Imaging Results None recorded. Procedure Notes None recorded. Medical Equipment None Reported. Allergies Allergen ID Allergen Name Allergen Category Reaction Reaction Severity Criticality Documentation Date Start Date Code Code System Note Provider Name and Address Organization Details Recorded Time 82865 morphine medicatio n Not available Not available Not available 04/05/2025 7052 RxNorm Joie Shankar [facility], [employer] 14:00:02 Medications Name Sig Start Date [...] Updated DateTime 5 172.72 cm 34.1 kg/m2 118657. 69 g 96 % 96 % 84 /min 98.6 [degF] 118 mm[Hg] 78 mm[Hg] [email or web address] 5 10:00:04 Date Recorded Body height Body mass index (BMI) Body weight Oxygen saturation Oxygen saturation in Arterial blood by Pulse oximetry Heart rate Body temperature Systolic blood pressure Diastolic blood pressure Provider Name and Address Organization Details Last Updated DateTime 5 172.72 cm 36 kg/m2 501346. 67 g 99 % 99 % 86 /min 98.2 [degF] 124 mm[Hg] 76 mm[Hg] [email or web address] 5 13:47:03 Date Recorded Body height Body mass index (BMI) Body weight Body temperature Oxygen saturation Oxygen saturation in Arterial blood by Pulse oximetry Heart rate Systolic blood pressure Diastolic blood pressure Provider Name and Address Organization Details Last Updated DateTime 5 172.72 cm 36.6 kg/m2 893702. 04 g 98.3 [degF] 96 % 96 % 76 /min 122 mm[Hg] 76 mm[Hg] [email or web address] 5 15:09:38 Date Recorded Body height Body mass index (BMI) Body weight Body temperature Heart rate Oxygen saturation Oxygen saturation in Arterial blood by Pulse oximetry Systolic blood pressure Diastolic blood pressure Provider Name and Address Organization Details Last Updated DateTime 5 172.72 cm 36.4 kg/m2 266485. 28 g 98.2 [degF] 85 /min 97 % 97 % 123 mm[Hg] 80 mm[Hg] Joie Shankar [employer] 5 14:02:28 Date Recorded Body height Body mass index (BMI) Body weight Oxygen saturation Oxygen saturation in Arterial blood by Pulse oximetry Heart rate Body temperature Systolic blood pressure Diastolic blood pressure Provider Name and Address Organization Details Last Updated DateTime 5 172.72 cm 36.9 kg/m2 023724. 51 g 97 % 97 % 78 /min 98.1 [degF] 128 mm[Hg] 80 mm[Hg] [email or web address] 5 14:40:50 Social History Question Answer Notes LastModified by Organizat ion Details LastModified Time Tobacco Smoking Status Former Smoker [facility] 12/11/2024 14:15:00 Do You Have An [...] Information not available 08/17/2024 What Type Of Real Estate Executive Assistant Do You Use? None Information not available [...] Do You Have A Medical Power Of Cloud Developer? No Information not available 07/27/2024 What Was [...] anxious, or unable to sleep at night)? [id number] Information not available 02/11/2025 Do you have [...] split virus, trivalent, PF completed SIRI Stevens [address] [place] [address], [address], [employer] 08/03/2024 10:54:01 Influenza, split virus, quadrivalent, preservative 7 completed Joie Shankar null, [employer] 12/11/2024 14:11:46 Influenza, split virus, trivalent, PF 8 completed Ojie Shankar null, [employer] 12/11/2024 14:11:46 Td (adult), 2 Lf tetanus toxoid, preservative free, adsorbed 7 completed Joie Shankar null, [employer] 12/11/2024 14:11:46 Influenza, split virus, quadrivalent, PF 1 completed Joie Shankar null, [employer] 12/11/2024 14:11:46 Influenza, split virus, quadrivalent, PF 2 completed Joie Shankar null, [employer] 12/11/2024 14:11:46 Influenza, split virus, quadrivalent, PF 3 completed Joie Shankar null, [employer] 12/11/2024 14:11:46 Influenza, split virus, quadrivalent, PF 0 completed Joie Shankar null, [employer] 12/11/2024 14:11:46 Past Encounters Encounter ID Performer Location Encounter Start Date Encounter Closed Date Diagnosis/Indication Diagnosis SNOMED-CT Code Diagnosis ICD10 Code Diagnosis Note [id number] SIRI Stevens [facility] [address] [place] [address]77-965 2 07/27/2024 13:16:28 07/27/2024 14:03:57 Screening mammography 46603280 Z12.31 Type 2 anshul betes mellitus without complication 808768385 E11.9 Low back pain 337215976 M54.50 Cough 54629008 R05.9 Depressive disorder 3548 9007 F32.A [id number] SIRI Stevens [facility] [address] [place] [address] 45652-545 2 08/02/2024 09:24:54 08/02/2024 13:58:10 Administration of influenza vaccine 30337809 Z23 [id number] SIRI Stevens [address] [address] 2 12/11/2024 13:57:44 12/11/2024 14:51:40 Type 2 diabetes mellitus without complication 544359616 E11.9 Severe dry skin 65018002 2 L85.3 HIV screening 357257633 Z11.4 Hepatitis C screening 41 0219016 Z11.59 Body mass index 30+ - obesity 419900018 Z68.33 [id number] SIRI Stevens [address] [address]13[address]681 2 12/25/2024 09:39:09 12/25/2024 11:00:14 Pain in right foot 3268513976 84399 M79.671 Xrayepsom salt soaksVolta elsie gelKT tape Reduced libido 8073723 R 68.82 Severe dry skin 59677887 2 L85.3 [id number] SIRI Stevens [address] [address]557 2 02/11/2025 13:40:39 02/11/2025 14:15:03 Burping 543244844 R14.2 Pain in pelvis 19834174 R10.2 [id number] SIRI Stevens [address] [address] 2 03/11/2025 15:00:51 03/11/2025 15:44:20 Type 2 diabetes mellitus 24527138 E11.9 Hga1c has gone up, but she was off Ozempic for a few weeks; will repeat next OV Depressive disorder 3548 9007 F32.A Vitamin D deficiency 347 31083 E55.9 Mixed hyperlipidemia 267 952499 E78.2 Essential hypertension 85666022 I10 Type 2 anshul betes mellitus without complication 581233197 E11.9 Cough 88933826 R05.9 [id number] ISRI Stevens [address] [address]836 2 04/05/2025 13:46:18 04/05/2025 14:40:19 Acute low back pain 553948144 M54.50 Lumbar dis c prolapse with radiculopathy 503809813 M51.16 RTC if not improving [id number] SIRI Stevens [facility] [address] [place] [address] 04/08/2025 14:33:39 04/08/2025 15:06:20 Lumbar disc prolapse with radiculopathy 183277736 M51.16 Health Concerns Section Related Observation LastModified by Organization Detai ls LastModified Time None Recorded Concern Status LastModified by Organization Details LastModified Time None Recorded Advance Directives Directive N: Payers Insurance Date Sequence Insurance Name Policy Number Policy Henry Covered Member ID Henry Member ID Guarantor Name 04/05/2025 1 [employer] [facility] (MEDICAID HMO) Jenny Barr [id number] Jenny Barr Notes Date Note Type Note [...] c/o no libido, hair loss. SIRI Stevens [address] [place], [address], [employer] 12/25/2024 16:28:18 02/11/2025 text/html Patient complain s of intermittent pelvic pain. Has been happening fort he past year or so. Has severe pain radiating into her vagina. Almost feels like something is going to fall out but has never felt a prolapse. Recently had lumbar surgery. Relieved pain in her hips but still has pain in her back. SIRI Stevens [address] [place], [address], [employer] 02/12/2025 13:58:00 03/11/2025 text/html Patient presents for followup. Due for refills. Has intermittent pain in right hand. HgA1c has gone up - she had lumbar fusion roughly 6 weeks ago and was off some of her meds for a while. SIRI Stevens [address] [place], [address], [facility] [employer] 03/11/2025 17:22:47 04/05/2025 text/html Patient states s he injured her back the last week of February. She was at her [employer] field day, got sprayed with water, and jerked involuntarily. Thought she had pulled a muscle but muscle relaxers, rest, heat havent really helped. By the end of the day pain radiates down her left hip. Had lumbar fusion back in October. SIRI Stevens [address] [place], [address], [facility] [employer] 04/05/2025 15:44:44 04/08/2025 text/html Patient states h er back is still very painful, possibly even worse. She has appointment with surgeon, but not until 04/24. She is unable to sleep. SIRI Stevens [address] [place], [address], [facility] [employer] 04/08/2025 17:46:15 OBGyn Episode No OBEpisode recorded.
--- OUTSIDE RECORDS SUMMARY | 2025-04-18 10:09 | XMS_ITS | Clinical Summary ---
Author Organization [facility] Address [address] [place] [address] Care Team Providers Care Server Support Technician Name Role Phone Janet Chapman Primary Care Provider [phone] Clarence Rubin MD Unavailable Frankie Dalton MD Unavailable [phone] Frankie Dalton MD Unavailable [phone] Celi Murrell Unavailable [phone] Norberto West MD Unavailable [phone] Allergies Active Allergy Reactions Criticality Noted [...] (1 mg). 4 Active ergocalciferol 1.25 MG (08587 UT) capsule Takes on Sundays 4 Active [...] Encounters Date Type Department Care Team Description 04/18/2025 Travel 04/12/2025 Telephone [facility] [address], [address] [place] [address] Norberto West MD 02/06/2025 3:20 PM EDT Office Visit [facility] Orthopaedic Surgery & Sports Medicine [address], [address] [place] [address] [address] [place] [address] Norberto West MD S/P lumbar fusion (Primary Dx) 02/06/2025 2:56 PM EDT - 02/06/2025 11:59 PM EDT Hospital Encounter [facility] Radiology [address], [address] [place] [address] Status post lumbar spinal fusion Discharge Disposition: Home or Self Care 02/06/2025 Travel 02/04/2025 Orders Only [facility] [address], [address] [place] [address] Norberto West MD Status post lumbar spinal fusion (Primary Dx) 01/30/2025 Travel 01/21/2025 Refill [facility] [address], [address] [place] [phone] Celi Murrell PA 01/21/2025 Orders Only [facility] [address], [address] [place] [address] Celi Murrell PA Status post lumbar spinal [...] Sister Crohn's disease Maternal Grandmother Arthritis Mother SWETA Cancer Mother SOL Depression Mother SOL Diabetes Mother SOL Hypertension Mother SWETA Rheumatologic disease Mother SWETA [...] Description 04/24/2025 1:40 PM EDT Office Visit [facility] Orthopaedic Surgery & Sports Medicine [address], [address] [place] [address] Norberto West MD [address] [place] [address] Health Maintenance Due Date Last Done Comments [facility]-Depression Screening 1973 [facility]-HIV Screening 1973 [facility]-Hepatitis C Screening 1973 [facility]-Infant/Child/Adol SDOH Screenings 1973 [facility]- SDOH Screenings 1991 [...] 2023 [facility]-Zoster Vaccines (1 of 2) 2023 [id number] Vaccine ( - season) 2024 [facility]-Influenza Vaccine Completed 08/02/2024 , [...] this topic Medical Devices Implanted Type Area Mapping Analyst Device Identifier Shelf Expiration Date Model / Serial / Lot Tlif-C Ui 12mm 8deg 28/10 - [id number] Implanted:Qty : 1 on 11/08/2024 by Norberto West MD at [facility] Cage N/A: Spine Lumbar [employer] -[id number] 03/23/2028 [id number] / / Lowell Viper2 Lordotic 45mm - [id number] Implanted:Qty : 2 on 11/08/2024 by Norberto West MD at [facility] Lowell N/A: Spine Lumbar [employer] -[id number] 11/08/2025 [id number] / / Single Inner Setscrew - [id number] Implanted:Qty : 4 on 11/08/2024 by Norberto West MD at [facility] Screw N/A: Spine Lumbar [employer] -[id number] 11/08/2025 [id number] / / Screw 7.0mm Viper Cfx Fen Xtab 50mm - [id number] Implanted:Qty : 4 on 11/08/2024 by Norberto West MD at [facility] Screw N/A: Spine Lumbar [employer] -[id number] 11/08/2025 [id number] / / Tissue Vivigen Formable 5.4cc Med Pk/4 - [id number] - [id number] Implanted:Qty : 1 on 11/08/2024 by Norberto West MD at [facility] Spine Lumbar [facility]-[id number] 10/04/2025 [id number] / [id number] / [id number] Procedures Procedure Name Priority Date/Time Associated Diagnosis [...] Final Result from Last 3 Months [facility] Advance Directives * Full Code (Latest Code Status on File) Date Activated Date Inactivated Comments 11/08/2024 11:18 AM 11/09/2024 4:20 PM Question Answer Comments Patient has decision-making capacity? Yes Care Teams Server Support Technician Relationship Specialty Start Date End Date Janet Chapman PA [address] [place] [address] PCP - General 06/23/21 Clarence Rubin MD [address] [place] [address] Surgeon Neurosurgery 06/23/21 Frankie Dalton MD [address] [place] [address] Surgeon Neurosurgery 10/13/21 Frankie Dalton MD [address] [place] [address] Surgeon Neurosurgery 12/15/21 Celi Murrell PA [address] [place] [address] Physician Cruller Maker Neurosurgery 04/01/22 Norberto West MD [address] [place] [address] Surgeon Neurosurgery 10/29/24
--- OUTSIDE RECORDS SUMMARY | 2025-04-18 10:09 | XMS_ITS | Encounter Summary ---
Author Organization [facility] Address [address] [place] [address] Care Team Providers Care Conditioner Tender Name Role Phone Janet Chapman Primary Care Provider [phone] Clarence Rubin MD Unavailable Frankie Dalton MD Unavailable Frankie Dalton MD Unavailable [phone] Celi Murrell Unavailable [phone] Norberto West MD Unavailable [phone] Encounter Details Date Type Department Care Team (Late st Contact Info) Description 12/25/2021 Orders Only External Location [address] [place] [address] Celi Murrell PA [address] [facility] [address] [place] [address] Social History Tobacco Use Types Packs/Day Years [...] Description 04/24/2025 1:40 PM EDT Office Visit [facility] Orthopaedic Surgery & Sports Medicine [address], [address] [place] [address] Norberto West MD [address] [place] [address] documented as of this encounter [...] documented as of this encounter Care Teams Conditioner Tender Relationship Specialty Start Date End Date Janet Chapman PA [address] [place] [address] PCP - General 06/23/21 Clarence Rubin MD [address] [place] [address] Surgeon Neurosurgery 06/23/21 Frankie Dalton MD [address] [place] [address] Surgeon Neurosurgery 10/13/21 Frankie Dalton MD [address] [place] [address] Surgeon Neurosurgery 12/15/21 Celi Murrell PA [address] [place] [address] Physician Director Web Neurosurgery 04/01/22 Norberto West MD [address] [place] [address] Surgeon Neurosurgery 10/29/24 documented as of this encounter
[2025-04-18 11:01] VITALS: BP 137/71; PULSE 98; RESP 18; O2SAT 97; BMI 35.2
--- NOTE | 2025-04-18 14:07 | EXP.PAIN.OV ---
HPI Data of Consult Patient: new to practice Consult date: 04/18/25 Requesting Physician: Mansi Nevarez APRN Primary Care Provider: SIRI Stevens Reason for consult: Low back pain, bilateral hip pain History of present illness: Ms. Barr is a 49 year old female who presents today as a new patient. She is a referral from Janet Muñoz's office. Today she rates her pain currently a 3 out of 10 however states that with increased activity or certain positions it will go to a 5 or more. Patient does describe it as an aching sensation that will go to a stabbing sensation with certain movements. She states it often aggravated with prolonged sitting or laying down. Patient states that she cannot tolerate going up stairs or long car rides due to the worsening pain. Patient states that she has had pain for several years in her low back and hip area however it has just worsened since February related to a sudden jerking sensation she did in the yard. Patient states that it is unbearable currently and she is interested in injection therapy. Patient has had injections in the past and states is probably been at least 3 years. Patient is unsure what all injection type she has had. Patient does have a history of lumbar fusion back in October with Dr. Talavera and has also had laminectomies in the past. Patient states that she has tried oral medications including muscle relaxers and tramadol that do seem to help her sleep a little bit better however have not done much for the pain. Patient has continued heat and massage with some temporary relief. Patient denies any chiropractor therapy. Patient is starting physical therapy on April 23. Patient does state that this pain is interfering with her ability perform activities of daily living such as cooking and cleaning. She states that she even has noticed that she feels like she does not mushroom picker her left foot as well because the pain is much worse on the left side in comparison to the right and she is dragging that extremity. Her Wali has been reviewed and is appropriate. Pain at rest (0-10 scale): 5 Has patient had previous pain injection?: No Conservative treatment options previously tried: Home exercise plan (Longer than 12 weeks) and Physical Therapy (Starting April 23) cc:: CC: Mansi Nevarez APRN [facility] Disclaimer: The information contained in this section may have been updated after the patient was seen, as this information can be updated by other users. Medical History Sinusitis Nasal congestion Piriformis syndrome Back pain Left otitis media Viral respiratory illness Otitis media H. pylori infection Diarrhea Myalgia Chills Fever IBS (irritable bowel syndrome) Asthma Mouth ulcer Neuroforaminal stenosis of lumbar spine Herniation of lumbar intervertebral disc with radiculopathy Radicular pain of both lower extremities Lumbar canal stenosis Diabetes Neuropathy Low back pain History of rheumatic fever Urinary incontinence Hyperlipidemia Fibromyalgia Hypertension Perioral dermatitis Vitamin D deficiency (~08/19/18) Hand pain, left Depression Surgical History History of lumbar fusion History of section History of hand surgery CMC joint bilateral History of hysterectomy partial H/O lumbar discectomy Family History Other Diabetes FHx: mental illness Family history of cancer Hyperlipidemia Hypertension Social History (Updated 04/18/25 @ 11:16 by Kathy Hummel RN) Smoking Status: Current every day smoker tobacco type: cigarettes packs per day: 1 second hand exposure: Yes alcohol intake: current alcohol intake frequency: holidays/special occasions only substance use type: denies use current occupational status: unemployed Travel in the last 8 weeks?: None household members: spouse housing: house current occupational exposures/hazards: No caffeine: Yes Contact w/someone who lives/traveled outside [place] past 30 days?: No Exposure to someone with infectious disease in past 14 days?: No Do you have a fever (greater than 100.4 F or 38 C)?: No Have you tested positive for COVID-19?: No Exposed to someone with COVID-19 in past 14 days?: No Do you have a sore throat?: No Do you have a cough?: No Do you have any weakness?: No Are you experiencing any nausea/vomitting?: No Do you have any diarrhea?: No Are you experiencing any unusual bleeding?: No Do you have any muscle aches/pain?: No Do you have any abdominal pain?: No Are you experiencing loss of taste or smell?: No Review of Systems Review of Systems Review of systems:: pertinent systems reviewed and negative unless documented below Review of systems (narrative): Review of Systems: General: No recent weight changes, no fever, no sleep disturbances Respiratory: No cough, no shortness of air, no recurring pulmonary infections Cardiovascular/peripheral vascular: No chest pain, no palpitations, no edema, no shortness of breath Gastrointestinal: No new onset incontinence, normal bowel movements reported Genitourinary: No new onset incontinence Musculoskeletal: Low back pain, bilateral hip pain Psychiatric: [Normal mood/affect] Neurological: [Denies weakness in extremities], [denies balance issues] Meds Home Medications and Allergies Home Medications ?Medication ?Instructions ?Recorded ?Confirmed ?Type albuterol sulfate 90 mcg/actuation 2 inh inhalation Q6H PRN shortness 06/16/24 04/18/25 Rx aerosol inhaler of breath or wheezing #6.7 grams atorvastatin 20 mg tablet 20 mg PO HS 06/16/24 04/18/25 History brexpiprazole 1 mg tablet (Rexulti) 1 mg PO DAILY 06/16/24 04/18/25 History escitalopram oxalate 20 mg tablet 20 mg PO DAILY 06/16/24 04/18/25 History semaglutide 0.25 mg or 0.5 mg (2 0.25 mg SQ WEEKLY 08/17/24 04/18/25 History mg/3 mL) subcutaneous pen injector ([employer]) cholecalciferol (vitamin D3) 50 50 mcg PO DIRECTED SUPPLIMENT 01/21/25 04/18/25 History mcg (2,000 unit) capsule lidocaine 5 % topical patch 1 patch topical DAILY #15 ea 01/21/25 04/18/25 Rx lisinopril 10 mg tablet See Rx Instructions .Route 02/01/25 04/18/25 Rx .COMPLEX #30 tabs estradiol 0.01% (0.1 mg/gram) 1 appful vaginal DAILY #42.5 grams 02/25/25 04/18/25 Rx vaginal cream (Estrace) oxybutynin chloride 10 mg 10 mg PO DAILY #90 tabs 02/25/25 04/18/25 Rx tablet,extended release 24 hr benzonatate 100 mg capsule 100 mg PO TID PRN cough #30 caps 03/03/25 04/18/25 Rx cyclobenzaprine 5 mg tablet 5 mg PO TID PRN muscle spasm #20 03/18/25 04/18/25 Rx tabs New Prescriptions to Start Prescriptions: Allergies Allergy/AdvReac Type Severity Reaction Status Date / Time morphine Allergy Abdominal Verified 03/18/25 12:52 Pain cariprazine (From Vraylar) AdvReac Intermediate tics Verified 03/18/25 12:52 Opioids - Morphine Analogues AdvReac Intermediate Vomiting Verified 03/18/25 12:52 acetaminophen (From Lortab) AdvReac Mild Vomiting Verified 03/18/25 12:52 hydrocodone (From Lortab) AdvReac Unknown Verified 03/18/25 12:52 allergy reaction metformin AdvReac Vomiting Verified 03/18/25 12:52 Objective Vital signs: Pulse Resp BP Pulse Ox O2 Del Method 98 H 18 137/71 97 Room Air 04/18/25 11:01 04/18/25 11:01 04/18/25 11:01 04/18/25 11:01 04/18/25 11:01 Narrative: Physical Exam: General: Alert and oriented x3, no acute distress, pleasant and cooperative Lungs: Respirations even and unlabored, symmetrical chest expansion Eyes: PERRL Musculoskeletal: Flexion and extension of lumbar [spine] somewhat guarded secondary to pain, [antalgic gait noted] point tenderness along bilateral SIs with positive bilateral Lary's, Zac's, Gaenslen's, compression and distraction exam Neurological: Speech clear, no gross sensory deficit Assessment and Plan *Assessment and plan (1) Bilateral sacroiliitis: Status: Acute Category: Medical Code(s): M46.1 - Sacroiliitis, not elsewhere classified (2) Degenerative joint disease (DJD) of lumbar spine: Status: Chronic Category: Medical Code(s): M47.816 - Spondylosis without myelopathy or radiculopathy, lumbar region Plan Patient is experiencing worsening pain along the low back and bilateral hips. They did have limited range of motion of the lumbar spine along with point tenderness along bilateral SI joints and a positive bilateral Lary's, Zac's, Gaenslen's, compression and distraction exam. I did discuss with the patient that I do believe they would benefit from bilateral SI injections. Risk and benefits were discussed with the patient and they would like to proceed forward with this option. Patient has tried and failed conservative therapy. Patient has been actively doing conservative treatment including oral medication, heat and ice, topicals, at home exercising and stretching for longer than 12 weeks. Patient is having to adjust their activity based off the increased pain resulting in activity modification. I do believe the patient would benefit from SI injection. If the patient does get significant relief following these injections we will see in the future if they would benefit from a second set with the possibility of SI fusion at a later date. This will be a diagnostic injection with less than 1 mL solution to be injected. Patient will be scheduled for bilateral SI injections under fluoroscopy. I will also order the patient a compounded cream. Patient has been instructed to contact the clinic with any concerns before the next appointment. Dr. Buenrostro has reviewed this note and agrees with this plan of care. This note was dictated using voice recognition software and make contain errors or omissions. All injections are used with Lidocaine or Bupivacaine and dexamethasone unless diagnostic in which no steroids were injected.
== END 2025-04-18 23:59 | disposition home or self-care (01) ==
LOC: SC.PAIN 10:05
PROVIDERS: PCP Physician Assistant; Visit Provider Nurse Practitioner Family
DX: M46.1 Sacroiliitis, not elsewhere classified (principal); M47.816 Spondylosis without myelopathy or radiculopathy, lumbar region; Z79.899 Other long term (current) drug therapy; Z79.891 Long term (current) use of opiate analgesic; Z98.890 Other specified postprocedural states
CPT/HCPCS: 99202; G0463

== ENCOUNTER 2025-05-08 10:35 | Outpatient (CLI) | payer OTHER, SELFPAY ==
--- OUTSIDE RECORDS SUMMARY | 2025-04-24 09:44 | XMS_ITS | Encounter Summary ---
Author Organization [facility] Address [address] [place] [address] Care Team Providers Care Technical Planner Name Role Phone Janet Chapman Primary Care Provider [phone] Clarence Rubin MD Unavailable Frankie Dalton MD Unavailable [phone] Frankie Dalton MD Unavailable [phone] Celi Murrell Unavailable [phone] Norberto West MD Unavailable [phone] Encounter Details Date Type Department Care Team (Latest Contact Info) Description 04/24/2025 9:44 AM EDT - 04/24/2025 11:59 PM EDT [facility] Encounter [facility] [address] [place] [address] Status post lumbar spinal fusion Discharge Disposition: [...] tablet tablet 1 tablet (1 mg). 06/16/2024 celecoxib (CeleBREX) 200 MG capsule Take 1 capsule by mouth daily. 04/02/2025 cholecalciferol (Vitamin D-3) 50 MCG (2000 UT) capsule 12/13/2024 cyclobenzaprine (Flexeril) 10 MG tablet Take 1 tablet by mouth 2 times a day as needed. 04/22/2025 ergocalciferol 1.25 MG (08758 UT) capsule Takes on Sundays02/23/2024 escitalopram (Lexapro) 20 MG tablet Take 1 tablet (20 mg) by mouth daily. estradiol (Estrace) 0.1 MG/GM vaginal cream Insert 2 g into the vagina daily. 02/25/2025 fluconazole (Diflucan) 150 MG tabletIndication s:Acute cystitis [...] nostril if symptoms continue 1 each 11/09/2024 oxybutynin XL (Ditropan-XL) 10 MG 24 hr tablet Take 1 tablet by mouth daily. 04/02/2025 Ozempic, 0.25 or 0.5 MG/DOSE, 2 MG/3ML solution pen-injector Saturdays07/30/2024 traMADol (Ultram) 50 MG tablet Take 1 tablet by mouth every 6 hours as needed for moderate pain. 04/22/2025 varenicline (Chantix) 1 MG tablet 2 (two) times a day. documented as of this encounter Plan of Treatment Upcoming Encounters Date Type Department Care Team (Late st Contact Info) Description 08/07/2025 12:40 PM EDT Office Visit [facility] Orthopaedic Surgery & Sports Medicine [address] [place] [address] Norberto West MD [address] [place] [address] documented as of this encounter Procedures Procedure Name Priority Date/Time Associated Diagnosis Comments XR LUMBAR SPINE 4 VIEWS TO INCLUDE FLEXION EXTENSION Routine 04/24/2025 10:01 AM EDT Status post lumbar spinal fusion documented in this encounter Results * XR Lumbar Spine 4+ Views w Flexion Extension (04/24/2025 10:01 AM EDT) Anatomical Region Laterality Modality Spine, L-spine Digital Radiogra phy Impressions 04/24/2025 10:06 AM EDT L4-5 posterior fusion. No hardware failure or loosening. Severe L5-S1 discogenic disease. No abnormal motion. CRITICAL RESULT: No. COMMUNICATION: Per this written report. Drafted by Aric Romero MD on 04/24/2025 10:05 AM Final report signed by Aric Romero MD on 04/24/2025 10:06 AM Narrative 04/24/2025 10:06 AM EDT CLINICAL INDICATION: post op TECHNIQUE: XR LUMBAR SPINE 4 VIEWS TO INCLUDE FLEXION EXTENSION COMPARISON: 02/06/2025 FINDINGS: Overlying stool, soft tissue, and bowel gas obscures bone detail. L4-5 posterior fusion is seen. Severe L5-S1 disc space narrowing is redemonstrated. Minimal L4- 5 anterolisthesis. No abnormal motion. Abdominal aortic atherosclerotic vascular calcifications. No hardware failure or loosening. Procedure Note Aric Romero MD - 04/24/2025 CLINICAL INDICATION: post op TECHNIQUE: XR LUMBAR SPINE 4 VIEWS TO INCLUDE FLEXION EXTENSION COMPARISON: 02/06/2025 FINDINGS: Overlying stool, soft tissue, and bowel gas obscures bone detail. L4-5posterior fusion is seen. Severe L5-S1 disc space narrowing isredemonstrated. Minimal L4-5 anterolisthesis. No abnormal motion.Abdominal aortic atherosclerotic vascular calcifications. No hardwarefailure or loosening. IMPRESSION: L4-5 posterior fusion. No hardware failure or loosening. Severe L5-S1 discogenic disease. No abnormal motion. CRITICAL RESULT: No. COMMUNICATION: Per this written report. Drafted by Aric Romero MD on 04/24/2025 10:05 AM Final report signed by Aric Romero MD on 04/24/2025 10:06 AM Norberto West MD IMG XR PROCEDURES Final Result documented in this encounter Visit Diagnoses Diagnosis Status post lumbar spinal fusion Arthrodesis status documented in this encounter Additional Health Concerns Assessment Noted Time A fall risk assessment has been complete d for the patient 04/24/2025 2:23 PM EDT A Body Mass Index follow-up plan has been documented for the patient 04/24/2025 3:24 PM EDT documented as of this encounter Care Teams Technical Planner Relationship Specialty Start Date End Date Janet Chapman PA [address] [place] [address] PCP - General 06/23/21 Clarence Rubin MD [address] [place] [address] Surgeon Neurosurgery 06/23/21 Frankie Dalton MD [address] [place] [address] Surgeon Neurosurgery 10/13/21 Frankie Dalton MD [address] [place] [address] Surgeon Neurosurgery 12/15/21 Celi Murrell PA [address] [place] [address] Physician Senior Ux Developer Neurosurgery 04/01/22 Norberto West MD [address] [place] [address] Surgeon Neurosurgery 10/29/24 documented as of this encounter
--- OUTSIDE RECORDS SUMMARY | 2025-04-24 13:40 | XMS_ITS | Encounter Summary ---
Author Organization [facility] Address [address] [place] [address] Care Team Providers Care Wire Harness Design Engineer Name Role Phone Janet Chapman Primary Care Provider [phone] Clarence Rubin MD Unavailable Frankie Dalton MD Unavailable [phone] Frankie Dalton MD Unavailable [phone] Celi Murrell Unavailable [phone] Norberto West MD Unavailable [phone] Encounter Details Date Type Department Care Team (Late st Contact Info) Description 04/24/2025 1:40 PM EDT Office Visit [place] [facility]opa[facility] [address] [place] [address] Norberto West MD [address] [place] [address] S/P lumbar fusion (Primary Dx); [...] encounter Miscellaneous Notes * Progress Notes - Norberto West MD - 04/24/2025 1:40 PM EDT HPI: Jenny [...] coordination of care. I spent >50% in wzbe-yx-phkq communication with the patient over the diagnosis, treatment options and plan. Norberto West MD MS Deputy Chief Executive of Neurosurgery Complex and Minimally Invasive Spine Surgery [facility] [address] [place] [address] [place], [address] documented in this encounter Plan of Treatment Upcoming Encounters Date Type Department Care Team (Late st Contact Info) Description 08/07/2025 12:40 PM EDT Office Visit [facility] Orthopaedic Surgery & Sports Medicine [address] [place] [address] Norberto West MD [address] [place] [address] documented as of this encounter Visit Diagnoses [...] documented as of this encounter Care Teams Wire Harness Design Engineer Relationship Specialty Start Date End Date Janet Chapman PA [address] [place] [address] [facility] - General 06/23/21 Clarence Rubin MD [address] [place] [phone] Surgeon Neurosurgery 06/23/21 Frankie Dalton MD [address] [place] [address] Surgeon Neurosurgery 10/13/21 Frankie Dalton MD [address] [place] [address] Surgeon Neurosurgery 12/15/21 Celi Murrell PA [address] [place] [address] Physician Plant Etiologist Neurosurgery 04/01/22 Norberto West MD [address] [place] [address] Surgeon Neurosurgery 10/29/24 documented as of this encounter
--- NOTE | 2025-05-08 | XR_ITS ---
FINAL REPORT CLINICAL HISTORY: pain in L shoulder for few weeks, no injury to shoulder COMPARISON: 03/10/2023 FINDINGS: Two views of the left shoulder show no evidence of acute displaced fracture or dislocation of the visualized bony architecture. Moderate degenerative changes of the glenohumeral and acromioclavicular joints. IMPRESSION: Degenerative changes without acute findings. Reviewed, Interpreted and Dictated by Tracie Toro MD Transcribed by Cielo Parisi Authenticated and [facility]
--- OUTSIDE RECORDS SUMMARY | 2025-05-08 10:39 | XMS_ITS | Continuity of Care Document ---
Author Organization [place] - [employer] [facility] Address [address] [place] [address] Assessment No assessment recorded. Plan of Treatment Reminders Order Date Submit Date Provider Last Modified By Organization Details Last Modified Time Details Appointments FOLLOW UP 2024 08:00A Gerhard Chapman PA-C Not available Not available Not available Lab None recorded. Referral None recorded. Procedures None recorded. Surgeries None recorded. Imaging None recorded. Medication Orders ketorolac 60 mg/2 mL intramusc ular solution [address], [address] [place] [address], [id number], 04/08/2025 14:41:06 Depo-Medr ol 80 mg/mL suspensio n for injection [address], [address] [place] [address], [address], 04/08/2025 14:41:02 prednison e 20 mg tablet 2024 025 [facility], [address] [place] [address], [address], 04/05/2025 15:47:36 Patient TargetsNo targets recorded. Patient InstructionsNo instructions recorded. Reason for Referral None Reported. Results Created Date Observation Date Name Description Value Unit Range Abnormal Flag Note LastModifiedBy Organization Detail LastModifiedTime 04/09/20 25 04/08/2025 XR, lumba r spine No observ ation record ed. [facility] (Med Record) [address], [place], [address], 04/09/2025 17:00:20 Result Notes None recorded. Problems Name Problem SNOMED Code Status Onset Date Resolution Date Notes Provider Name and Address Organization Details Recorded Time Type 2 diabetes mellitus without complicat ion 892231543 Active 2023 SIRI Stevens [address] [place] [address], [address], [employer] 13:39:01 Low back pain 151875607 Active 2023 SIRI Stevens [address] [place] [address], [address], [employer] 13:38:53 Cough 89124787 Completed 202312/13/2024 SIRI Stevens [address] [place] [address], [address] 8, [employer] 13:38:48 Depressiv e disorder 58361709 Active 2023 SIRI Stevens [address] [place] [address], [address] 8, [employer] 13:38:51 Viral gastroent eritis 275499133 Completed 202312/13/2024 SIRI Stevens [address] [place] [address], [address], [employer] 13:38:58 Severe dry skin 524214309 Completed 202412/13/2024 SIRI Stevens [address] [place] [address], [address], [employer] 13:38:56 Vitamin D deficienc y 30749766 Active 2024 SIRI Stevens [address] [place] [address], [address] 8, [employer] 13:39:14 Pain in right foot 621166006668 107 Active 2024 SIRI Stevens [address] [place] [address], [address], [employer] 5 11:00:51 Pain in pelvis 53704489 Active 2024 SIRI Stevens [address] [place] [address], [address] 8, [employer] 5 14:11:13 Mixed hyperlipi demia 129482075 Active 2024 SIRI Stevens [address] [place] [address], [address] 8, [employer] 5 15:50:47 Type 2 diabetes mellitus 67486371 Active 2024 SIRI Stevens [address] [place] [address], [address] 8, [employer] 5 17:22:21 Lumbar disc prolapse with radiculop athy 350923631 Active 2024 SIRI Stevens [address] [place] [address], [address] 8, [employer] 15:43:38 Acute low back pain 808896124 Active 2024 SIRI Stevens [address] [place] [address], [address] 8, [employer] 5 09:12:29 Problem Notes None recorded. Procedures Surgical History Date Name Laterality Status Provider Name and Address Organization Details Recorded Time 12/26/19 25 Diabetic Foot Screen completed SIRI Stevens [address] [place] [address], [address], [employer] 12/25/2024 16:25:07 12/11/19 25 Diabetic Foot Screen completed SIRI Stevens [address] [place] [address], [address], [employer] 12/11/2024 17:41:57 11/08/19 25 Back Surgery completed Pratibha [facility] [employer]. 03/11/2025 15:11:41 08/13/20 24 Most Recent Mammogram completed [facility]. 12/25/2024 10:03:46 07/24/20 03 Date of Last Pap Smear completed [facility]. 07/27/2024 13:30:19 Back Surgery completed R17. 07/27/2024 13:24:59 Caesarean Section completed [facility]. 07/27/2024 13:24:59 Partial Hysterectomy completed [facility]. 07/27/2024 13:24:59 Back Surgery completed R17. 03/11/2025 15:11:48 Imaging Results None recorded. Procedure Notes None recorded. Medical Equipment None Reported. Allergies Allergen ID Allergen Name Allergen Category Reaction Reaction Severity Criticality Documentation Date Start Date Code Code System Note Provider Name and Address Organization Details Recorded Time 56945 morphine medicatio n Not available Not available Not available 04/05/2025 7052 RxNorm Joie Shankar christiano, [employer]. 14:00:02 Medications Name Sig Start Date Stop Date Status Note LastModified by Organization Details LastModified Time celecoxib 200 mg capsule TAKE 2 CAPSULES BY MOUTH ONCE DAILY 2024 active Not Available Not Available Not Avai lable cyclobenz aprine 10 mg tablet TAKE 1 TABLET BY MOUTH THREE TIMES DAILY MAY CAUSE DROWSINE SS 2024 active Not Available Not Available Not [...] in Arterial blood by Pulse oximetry Systolic And Diastolic Provider Name and Address Organization Details Last Updated DateTime 5 172.72 cm 36.4 kg/m2 558719. 28 g 98.2 [degF] 85 /min 97 % 97 % 123/80 mm[Hg] Joie Shankar [employer] 14:02:28 Social History Question Answer Notes LastModified by Organizat ion Details LastModified Time Tobacco Smoking Status Former Smoker Joie alvarado [employer]. 12/11/2024 14:15:00 Do You Have An Advance [...] Information not available 08/17/2024 What Type Of Fashion Director Do You Use? None Information not available [...] Do You Have A Medical Power Of Dyeing Machine Feeder? No Information not available 07/27/2024 What Was [...] anxious, or unable to sleep at night)? [id number] Information not available 02/11/2025 Do you have [...] virus, trivalent, PF 4 completed SIRI Stevens [address] [place] [address], [address], [employer] 08/03/2024 10:54:01 Influenza, split virus, quadrivalent, preservative 7 completed Joie Shankar null, [employer] 12/11/2024 14:11:46 Influenza, split virus, trivalent, PF 8 completed Joie Shankar null, [employer] 12/11/2024 14:11:46 Td (adult), 2 Lf tetanus toxoid, preservative free, adsorbed 7 completed Joie Shankar null, [employer] 12/11/2024 14:11:46 Influenza, split virus, quadrivalent, PF 1 completed Joie Shankar null, [employer] 12/11/2024 14:11:46 Influenza, split virus, quadrivalent, PF 2 completed Joie Shankar null, [employer] 12/11/2024 14:11:46 Influenza, split virus, quadrivalent, PF 3 completed Joie Shankar null, [employer] 12/11/2024 14:11:46 Influenza, split virus, quadrivalent, PF 0 completed Joie Shankar null, [employer] 12/11/2024 14:11:46 Past Encounters Encounter ID Performer Location Encounter Start Date Encounter Closed Date Diagnosis/Indication Diagnosis SNOMED-CT Code Diagnosis ICD10 Code Diagnosis Note [id number] SIRI Stevens [facility] [address] [place] [address] 03/11/2025 15:00:51 03/11/2025 15:44:20 Type 2 diabetes mellitus 37009759 E11.9 Hga1c has gone up, but she was off Ozempic for a few weeks; will repeat next OV Depressive disorder 3548 9007 F32.A Vitamin D deficiency 347 56525 E55.9 Mixed hyperlipidemia 267 956347 E78.2 Essential hypertension 90889529 I10 Type 2 anshul betes mellitus without complication 051979094 E11.9 Cough 10815122 R05.9 [id number] SIRI Stevens [facility] [address] [place] [address] 04/05/2025 13:46:18 04/05/2025 14:40:19 Acute low back pain 416271365 M54.50 Lumbar dis c prolapse with radiculopathy 950354368 M51.16 RTC if not improving Health Concerns Section Related Observation LastModified by Organization Detai ls LastModified Time None Recorded Concern Status LastModified by Organization Details LastModified Time None Recorded Payers Encounter Date Sequence Insurance Name Policy Number Policy Henry Covered Member ID Henry Member ID Guarantor Name 04/05/2025 1 [facility] (MEDICAID HMO) Jenny Barr [id number] Jenny Barr Notes Date Note Type Note [...] lumbar fusion back in October. SIRI Stevens [address] [place] [address], [place], [address], [place] [facility] [employer] 04/05/2025 15:44:44 OBGyn Episode No OBEpisode recorded.
--- OUTSIDE RECORDS SUMMARY | 2025-05-08 10:39 | XMS_ITS | Encounter Summary ---
Author Organization [facility] Address [address] [place] [address] Care Team Providers Care Silk Spooler Name Role Phone Janet Chapman Primary Care Provider [phone] Clarence Rubin MD Unavailable Frankie Dalton MD Unavailable [phone] Frankie Dalton MD Unavailable [phone] Celi Murrell Unavailable [phone] Norberto West MD Unavailable [phone] Encounter Details Date Type Department Care [...] Description 08/07/2025 12:40 PM EDT Office Visit [facility] [address], [address] [place] [address] Norberto West MD [address] [place] [address] documented as of this encounter Visit Diagnoses Not on filedocumented in this encounter Additional Health Concerns Assessment Noted Time A fall risk assessment has been complete d for the patient 02/06/2025 3:12 PM EDT A Body Mass Index follow-up plan has been documented for the patient 02/06/2025 6:10 PM EDT documented as of this encounter Care Teams Silk Spooler Relationship Specialty Start Date End Date Janet Chapman PA [address] [place] [address] PCP - General 06/23/21 Clarence Rubin MD [address] [place] [address] Surgeon Neurosurgery 06/23/21 Frankie Dalton MD [address] [place] [address] Surgeon Neurosurgery 10/13/21 Frankie Dalton MD [address] [place] [address] Surgeon Neurosurgery 12/15/21 Celi Murrell PA [address] [place] [address] Physician Metals Analyst Neurosurgery 04/01/22 Norberto West MD [address] [place] [address] Surgeon Neurosurgery 10/29/24 documented as of this encounter
--- OUTSIDE RECORDS SUMMARY | 2025-05-08 10:39 | XMS_ITS | Encounter Summary ---
Author Organization [facility] Address [address] [place] [address] Care Team Providers Care Meal Packer Name Role Phone Janet Chapman Primary Care Provider [phone] Clarence Rubin MD Unavailable Frankie Dalton MD Unavailable [phone] Frankie Dalton MD Unavailable [phone] Celi Murrell Unavailable [phone] Norberto West MD Unavailable [phone] Encounter Details Date Type Department Care Team (Late st Contact Info) Description 03/17/2021 Orders Only [facility] [address], [address] [place] [address] Des Da Silva MD [address] [place] [address] Lumbar radiculopathy (Primary Dx) Social [...] Description 08/07/2025 12:40 PM EDT Office Visit [facility] Orthopa[facility] Surgery [facility] Sports Medicine [address] [place] [address] Norberto West MD [address] [place] [address] documented as of this encounter Visit Diagnoses Diagnosis Lumbar radiculopathy- Primary Thoracic or lumbosacral neuritis or radiculitis, unspecified documented in this encounter Care Teams Meal Packer Relationship Specialty Start Date End Date Janet Chapman PA [address] [facility] [place] [address] PCP - General 06/23/21 Clarence Rubin MD [address] [place] [address] Surgeon Neurosurgery 06/23/21 Frankie Dalton MD [address] [place] [address] Surgeon Neurosurgery 10/13/21 Frankie Dalton MD [address] [place] [address] Surgeon Neurosurgery 12/15/21 Celi Murrell PA [address] [place] [address] Physician Web Retailer Neurosurgery 04/01/22 Norberto West MD [address] [place] [address] Surgeon Neurosurgery 10/29/24 documented as of this encounter
--- OUTSIDE RECORDS SUMMARY | 2025-05-08 10:39 | XMS_ITS | Encounter Summary ---
Author Organization [facility] Address [address] [place] [address] Care Team Providers Care Lining Repairer Name Role Phone Janet Chapman Primary Care Provider [phone] Clarence Rubin MD Unavailable Frankie Dalton MD Unavailable [phone] Frankie Dalton MD Unavailable [phone] Celi Murrell Unavailable [phone] Norberto West MD Unavailable [phone] Encounter Details Date Type Department Care Team (Late st Contact Info) Description 04/23/2025 Orders Only [place] [facility] [address] [place] [address] Norberto West MD [address] [place] [address] Status post lumbar spinal fusion (Primary Dx) Social History Tobacco Use Types [...] Description 08/07/2025 12:40 PM EDT Office Visit [facility] Orthopaedic Surgery & [facility] Medicine [address] [place] [address] Norberto West MD [address] [place] [address] documented as of this encounter Results * XR Lumbar Spine [...] Visit Diagnoses Diagnosis Status post lumbar spinal fusion- Primary Arthrodesis status Status post lumbar spinal fusion Arthrodesis status documented in this encounter Additional Health Concerns Assessment Noted Time A fall risk assessment has been complete d for the patient 02/06/2025 3:12 PM EDT A Body Mass Index follow-up plan has been documented for the patient 02/06/2025 6:10 PM EDT documented as of this encounter Care Teams Lining Repairer Relationship Specialty Start Date End Date Janet Chapman PA [address] [place] [address] PCP - General 06/23/21 Clarence Rubin MD [address] [place] [address] Surgeon Neurosurgery 06/23/21 Frankie Dalton MD [address] [place] [address] Surgeon Neurosurgery 10/13/21 Frankie Dalton MD [address] [place] [address] Surgeon Neurosurgery 12/15/21 Celi Murrell PA [address] [place] [address] Physician Forensic Medical Examiner Neurosurgery 04/01/22 Norberto West MD [address] [place] [address] Surgeon Neurosurgery 10/29/24 documented as of this encounter
--- OUTSIDE RECORDS SUMMARY | 2025-05-08 10:39 | XMS_ITS | Encounter Summary ---
Author Organization [facility] Address [address] [place] [address] Care Team Providers Care Home Care Aide Name Role Phone Janet Chapman Primary Care Provider [phone] Clarence Rubin MD Unavailable Frankie Dalton MD Unavailable Frankie Dalton MD Unavailable [phone] Celi Murrell Unavailable [phone] Norberto West MD Unavailable [phone] Encounter Details Date Type Department Care Team (Late st Contact Info) Description 04/12/2025 Telephone [facility] [address] [place] [address] Norberto West MD [address] [place] [address] Social History Tobacco Use Types [...] optimal time of day to reach caller: [phone] Note: Please do not reply to this message. Follow-up communication and further actions as a result of this message need to be communicated with the patient directly, if the patient is not active onMyChart. If the patient is active on MyChart, they will receive notification of the communication/outcome via [email or web address]. documented in this encounter Plan of Treatment Upcoming Encounters Date Type Department Care Team (Late st Contact Info) Description 08/07/2025 12:40 PM EDT Office Visit [facility] Surgery [facility] [address] [place] [address] Norberto West MD [id number] [place] [address] documented as of this encounter Visit Diagnoses Not on filedocumented in this encounter Additional Health Concerns Assessment Noted Time A fall risk assessment has been complete d for the patient 02/06/2025 3:12 PM EDT A Body Mass Index follow-up plan has been documented for the patient 02/06/2025 6:10 PM EDT documented as of this encounter Care Teams Home Care Aide Relationship Specialty Start Date End Date Janet Chapman PA [address] [place] [address] PCP - General 06/23/21 Clarence Rubin MD [address] [place] [address] Surgeon Neurosurgery 06/23/21 Frankie Dalton MD [address] [place] [address] Surgeon Neurosurgery 10/13/21 Frankie Dalton MD [address] [place] [address] Surgeon Neurosurgery 12/15/21 Celi Murrell PA [address] [place] [address] Physician Senior Government Program Analyst Neurosurgery 04/01/22 Norberto West MD [address] [place] [address] Surgeon Neurosurgery 10/29/24 documented as of this encounter
--- OUTSIDE RECORDS SUMMARY | 2025-05-08 10:40 | XMS_ITS | Clinical Summary ---
Author Organization [facility] Address [address] [place] [address] Care Team Providers Care Infant Childcare Provider Name Role Phone Janet Chapman Primary Care Provider [phone] Clarence Rubin MD Unavailable Frankie Dalton MD Unavailable [phone] Frankie Dalton MD Unavailable [phone] Celi Murrell Unavailable [phone] Norberto West MD Unavailable [phone] Allergies Active Allergy Reactions Criticality Noted [...] (1 mg). 4 Active ergocalciferol 1.25 MG (32712 UT) capsule Takes on Sundays 4 Active [...] 5 Active cholecalciferol (Vitamin D-3) 50 MCG (1999 UT) capsule 5 Active methylPREDNISol one (Medrol Dospak) [...] for 14 days. 56 tablet 5 Active celecoxib (CeleBREX) 200 MG capsule Take 1 capsule by mouth daily. 5 Active cyclobenzaprine (Flexeril) 10 MG tablet Take 1 tablet by mouth 2 times a day as needed. 5 Active estradiol (Estrace) 0.1 MG/GM vaginal cream Insert 2 g into the vagina daily. 5 Active oxybutynin XL (Ditropan-XL) 10 MG 24 hr tablet Take 1 tablet by mouth daily. 5 Active traMADol (Ultram) 50 MG tablet Take 1 tablet by mouth every 6 hours as needed for moderate pain. 5 Active Active Problems Problem Noted Date [...] Encounters Date Type Department Care Team Description 04/24/2025 1:40 PM EDT Office Visit [facility] [address], [address] [place] [address] Norberto West MD S/P lumbar fusion (Primary Dx); Sacroiliac joint pain 04/24/2025 9:44 AM EDT - 04/24/2025 11:59 PM EDT Hospital Encounter [facility] [address] [place] [address] Status post lumbar spinal fusion Discharge Disposition: Home or Self Care 04/24/2025 Travel 04/23/2025 Orders Only [facility] [address] [place] [address] Norberto West MD Status post lumbar spinal fusion (Primary Dx) 04/18/2025 Travel 04/12/2025 Telephone [facility] [address] [place] [address] Norberto West MD 02/06/2025 3:20 PM EDT Office Visit [facility] [address] [place] [address] Norberto West MD S/P lumbar fusion (Primary Dx) 02/06/2025 2:56 PM EDT - 02/06/2025 11:59 PM EDT Hospital Encounter [facility] [address] [place] [address] Status post lumbar spinal fusion Discharge Disposition: Home or Self Care 02/06/2025 Travel from Last 3 Months Immunizations Immunization Administration [...] F) 04/24/2025 2:23 PM EDT Respiratory Rate 16 11/09/2024 12:36 PM EST Oxygen Saturation 97% 04/24/2025 2:23 PM EDT Inhaled Oxygen Concentration - - Weight 102 kg (225 lb) 04/24/2025 2:23 PM EDT Height 172.7 cm (5' 8 ) 04/24/2025 2:23 PM EDT Body Mass Index 34.21 04/24/2025 2:23 PM EDT Plan of Treatment Upcoming Encounters Date Type Department Care Team (Late st Contact Info) Description 08/07/2025 12:40 PM EDT Office Visit [facility] [address] [place] [address] Norberto West MD [address] [place] [address] Health Maintenance Due Date Last [...] 2023 [facility]-Zoster Vaccines (1 of 2) 2023 [id number]-42 Vaccine (1 - 2023- season) 2024 [facility]-Influenza Vaccine (#1) 06/24/202508/02, 08/29/2023, 08/13/2022, Additional history exists [facility]-Obesity Intervention Completed 025, 02/06/2025, 12/19/2024, Additional history exists HPV Vaccines Aged Out [...] this topic Medical Devices Implanted Type Area Test Engine Mechanic Device Identifier Shelf Expiration Date Model / Serial / Lot Tlif-C Ui 12mm 8deg 28/10 - [id number] Implanted:Qty : 1 on 11/08/2024 by Norberto West MD at [facility] Cage N/A: Spine Lumbar [employer] [id number] 03/23/2028 [id number] / / Lowell Viper2 Lordotic 45mm - [id number] Implanted:Qty : 2 on 11/08/2024 by Norberto West MD at [facility] Lowell N/A: Spine Lumbar [employer] [id number] 11/08/2025 [id number] / / Single Inner Setscrew - [id number] Implanted:Qty : 4 on 11/08/2024 by Norberto West MD at [facility] Screw N/A: Spine Lumbar [employer] [id number] 11/08/2025 [id number] / / Screw 7.0mm Viper Cfx Fen Xtab 50mm - [id number] Implanted:Qty : 4 on 11/08/2024 by Norberto West MD at [facility] Screw N/A: Spine Lumbar [employer] [id number] 11/08/2025 [id number] / / Tissue Vivigen Formable 5.4cc Med Pk/4 - [id number] - [id number] Implanted:Qty : 1 on 11/08/2024 by Norberto West MD at [facility] Spine Lumbar [facility]-[id number] 10/04/2025 [id number] / [id number] / [id number] Procedures Procedure Name Priority Date/Time Associated Diagnosis Comments XR LUMBAR SPINE 4 VIEWS TO INCLUDE FLEXION EXTENSION Routine 04/24/2025 10:01 AM EDT Status post lumbar spinal fusion XR LUMBAR SPINE 2 OR 3 VIEWS Routine 02/06/2025 3:09 PM EDT Status post lumbar spinal fusion from Last 3 Months Results * XR Lumbar Spine 4+ Views [...] West MD IMG XR PROCEDURES Final Result * XR Lumbar Spine 2 or 3 [...] Final Result from Last 3 Months Insurance [employer] [facility] MEDICAID Advance Directives * Full Code (Latest Code Status on File) Date Activated Date Inactivated Comments 11/08/2024 11:18 AM 11/09/2024 4:20 PM Question Answer Comments Patient has decision-making capacity? Yes Care Teams Infant Childcare Provider Relationship Specialty Start Date End Date Janet Chapman PA [address] [facility] [place] [address] PCP - General 06/23/21 Clarence Rubin MD [address] [place] [address] Surgeon Neurosurgery 06/23/21 Frankie Dalton MD [address] [place] [address] Surgeon Neurosurgery 10/13/21 Frankie Dalton MD [address] [place] [address] Surgeon Neurosurgery 12/15/21 Celi Murrell PA [address] [place] [address] Physician Supervisor Education Neurosurgery 04/01/22 Norberto West MD [address] [place] [address] Surgeon Neurosurgery 10/29/24
--- OUTSIDE RECORDS SUMMARY | 2025-05-08 10:40 | XMS_ITS | Encounter Summary ---
Author Organization [facility] Address [address] [place] [address] Care Team Providers Care Aquarium Tank Attendant Name Role Phone Janet Chapman Primary Care Provider [phone] Clarence Rubin MD Unavailable Frankie Dalton MD Unavailable [phone] Frankie Dalton MD Unavailable [phone] Celi Murrell Unavailable [phone] Norberto West MD Unavailable [phone] Encounter Details Date Type Department Care Team (Latest Contact Info) Description 04/24/2025 Travel Social History Tobacco Use Types Packs/Day [...] Description 08/07/2025 12:40 PM EDT Office Visit [facility] [address] [place] [address] Norberto West MD [address] [place] [address] documented as of this encounter Visit Diagnoses Not on filedocumented in this encounter Additional Health Concerns Assessment Noted Time A fall risk assessment has been complete d for the patient 04/24/2025 2:23 PM EDT A Body Mass Index follow-up plan has been documented for the patient 04/24/2025 3:24 PM EDT documented as of this encounter Care Teams Aquarium Tank Attendant Relationship Specialty Start Date End Date Janet Chapman PA [address] [place] [address] PCP - General 06/23/21 Clarence Rubin MD [address] [place] [address] Surgeon Neurosurgery 06/23/21 Frankie Dalton MD [address] [place] [address] Surgeon Neurosurgery 10/13/21 Frankie Dalton MD [address] [place] [address] Surgeon Neurosurgery 12/15/21 Celi Murrell PA [address] [place] [address] Physician Shake Feeder Neurosurgery 04/01/22 Norberto West MD [address] [place] [address] Surgeon Neurosurgery 10/29/24 documented as of this encounter
--- OUTSIDE RECORDS SUMMARY | 2025-05-08 10:40 | XMS_ITS | Data Portability ---
Author Organization [facility] [employer] [place] - MSE Address [address] [place] [address] Assessment No assessment recorded. Plan of Treatment Reminders Order Date Submit Date Provider Last Modified By Organization Details Last Modified Time Details Appointments FOLLOW UP 30 2024 08:00A Gerhard Chapman PA-C Not available Not available Not available Lab HbA1c (hemoglob in A1c), blood [address], [address] [place] [address], [id number], 03/11/2025 15:25:50 H pylori urea breath test, co2 infrared 2024 025 [facility], [address] [place], [address], 02/12/2025 14:13:20 TSH, ultra-sen sitive, serum 2024 025 [facility]), [address] [place], [address], 01/01/2025 09:08:21 rf (rheumato id factor), serum 2024 025 [facility] [address] [place], [address], 01/01/2025 09:08:22 C reactive protein, QN, serum or plasma 2024 025 [facility] [address] [place], [address], 01/01/2025 09:08:25 erythrocy te sedimenta tion rate by samaria n method 2024 025 [facility] ([place]), [address] [place], [address], 01/01/2025 09:08:23 MARITA (antinucl ear antibodie s) screen, serum 2024 025 [facility] ([place] [address] [place], [address], 01/01/2025 09:08:23 ccp (cyclic citrullin ated peptide) iga+igg, serum 2024 025 [facility] ([place] [address] [place], [address], 01/01/2025 09:08:23 testoster one, total, serum 2024 025 [facility] ([place] [address] [place], [address], 01/01/2025 09:08:22 lh + FSH, serum 2024 025 [facility] ([place] [address] [place], [address], 01/01/2025 09:08:21 progester one, serum 2024 025 [facility] ([place] [address] [place], [address], 01/01/2025 09:08:24 estrogen, total, serum 2024 025 [facility]), [address] [place], [address], 01/01/2025 09:08:24 Referral pain managemen t referral [address] [facility], [address], [place] [address], [place], [address], 05/07/2025 11:54:38 Procedures None recorded. Surgeries None recorded. Imaging XR, lumbar spine 2024 025 [facility] Scheduling Department -New Scheduling Process, [address], [place], [address], 04/09/2025 15:57:02 US, transvagi nal 2024 025 [facility] Scheduling Department -New Scheduling Process, [address], [place], [address], 02/18/2025 10:31:05 CT, abdomen + pelvis, w/o contrast - first available appt 2024 025 [facility] Scheduling Department -New Scheduling Process, [facility], [place], [address], 02/21/2025 11:01:24 XR, foot, 3 or more view 2024 025 [facility] Scheduling Department -New Scheduling Process, [facility], [place], [address], 01/01/2025 13:36:53 Medication Orders tramadol 50 mg tablet 2024 025 [facility], [address] [place] [address], [facility] 2, [place], [address], 04/08/2025 15:16:37 cyclobenz aprine 10 mg tablet 2024 025 [facility], [address] [place] [address], [facility] 2, [place], [address], 04/08/2025 15:16:33 ketorolac 60 mg/2 mL intramusc ular solution [address] [place] [address], [address] [place] [address], [address], [place], [address], 04/08/2025 14:41:06 Depo-Medr ol 80 mg/mL suspensio n for injection [email or web address] [place] [address], [address] [place] [address], [address], [place], [address], 04/08/2025 14:41:02 prednison e 20 mg tablet 2024 025 [facility], [address] [place] [address], [facility] 2, [place], [address], 04/05/2025 15:47:36 atorvasta tin 20 mg tablet 2024 025 [facility], [address] [place] [address], [facility] 2, [place], [address], 03/11/2025 15:52:28 albuterol sulfate HFA 90 mcg/actua tion aerosol inhaler 2024 025 [facility], [address] [place] [address], [facility] 2, [place], [address], 03/11/2025 15:52:31 cholecalc iferol (vitamin D3) 50 mcg (2,000 unit) capsule 2024 025 [facility], [address] [place] [address], [facility] 2, [place], [address], 03/11/2025 15:52:33 ergocalci ferol (vitamin D2) 1,250 mcg (50,000 unit) capsule 2024 025 [facility], [address] [place] [address], [facility] 2, [place], [address], 03/11/2025 15:52:32 Ozempic 0.25 mg or 0.5 mg (2 mg/3 mL) subcutane ous pen injector 2024 025 [facility], [address] [place] [address], [facility] 2, [place], [address], 03/11/2025 15:52:30 lisinopri l 10 mg tablet 2024 025 [facility], [address] [place] [address], [facility] 2, [place], [address], 03/11/2025 15:52:29 escitalop tyrese 20 mg tablet 2024 025 [facility], [address] [place] [address], [facility] 2, [place], [address], 03/11/2025 15:52:27 Rexulti 1 mg tablet 2024 025 [facility], [address] [place] [address], [facility] 2, [place], [address], 03/11/2025 15:52:28 Patient TargetsNo targets recorded. Patient Instructions Encounter Date Encounter Id Patient Instructions Last Modified By Organization Details Last Modified Time 12/25/2024 [id number] Decreased Female Libido: Care Instructions [email or web address] Not available 12/25/2024 11:27:17 03/11/2025 [id number] learning about type 2 diabetes [email or web address] Not available 03/11/2025 15:16:41 type 2 diabetes: care instructions Not available 03/11/2025 15:16:41 learning about mood disorders Not available 03/11/2025 15:51:40 Reason for Referral Pain Management Referral for Lumbar disc prolapse with radiculopathy Referring Physician: Janet Chapman, Family Medicine, Encounter Date: 04/08/2025 Results Created Date Observation Date Name Description Value Unit Range Abnormal Flag Note LastModifiedBy Organization Detail LastModifiedTime 12/11/1912/12/2024 CBC WITH DIFFE RENTI AL/PL ATELE T WBC 9.0 x10e3 /uL 3.4-10 .8 normal Not Available [facility] ([facility]) [address] [facility], [place], [address], 12/12/2024 08:11:56 12/11/1918 1212/12/2024 CBC WITH DIFFE RENTI AL/PL ATELE T RBC 4.22 x10e6 /uL 3.77-5 .28 normal Not Available [facility] ([facility]) [address] [facility], [place], [address], 12/12/2024 08:11:56 12/11/19 25 12/12/2024 CBC WITH DIFFE RENTI AL/PL ATELE T hemoglobin 12.9 g/dL 11.1-1 5.9 normal Not Available [facility] ([facility]) [address] [place], [address], 12/12/2024 08:11:56 12/11/19 25 12/12/2024 CBC WITH DIFFE RENTI AL/PL ATELE T hematocrit 38.4 % 34.0-4 6.6 normal Not Available [facility] ([facility]) [address] [place], [address], 12/12/2024 08:11:56 12/11/19 25 12/12/2024 CBC WITH DIFFE RENTI AL/PL ATELE T MCV 91 fL 79-97 normal Not Available [facility] ([facility]) [address] [place], [address], 12/12/2024 08:11:56 12/11/19 25 12/12/2024 CBC WITH DIFFE RENTI AL/PL ATELE T MCH 30.6 pg 26.6-3 3.0 normal Not Available [facility] ([facility]) [address] [place], [address], 12/12/2024 08:11:56 12/11/19 25 12/12/2024 CBC WITH DIFFE RENTI AL/PL ATELE T MCHC 33.6 g/dL 31.5-3 5.7 normal Not Available [facility] ([facility]) [address] [place], [address], 12/12/2024 08:11:56 02/18/20 25 12/12/2024 CBC WITH DIFFE RENTI AL/PL ATELE T RDW 11.5 % 11.7-1 5.4 below low normal Not Available [facility] ([facility]) [address] [facility], [place], [address], 12/12/2024 08:11:56 12/11/19 25 12/12/2024 CBC WITH DIFFE RENTI AL/PL ATELE T platelets 356 x10e3 /uL 150-45 0 normal Not Available [facility] ([facility]) [address] [place], [address], 12/12/2024 08:11:56 12/11/19 25 12/12/2024 CBC WITH DIFFE RENTI AL/PL ATELE T neutrophils 66 % not estab. normal Not Available [facility] ([facility]) [address] [facility], [place], [address], 12/12/2024 08:11:56 12/11/19 25 12/12/2024 CBC WITH DIFFE RENTI AL/PL ATELE T lymphs 28 % not estab. normal Not Available [facility] ([facility]) [address] [facility], [place], [address], 12/12/2024 08:11:56 12/11/19 25 12/12/2024 CBC WITH DIFFE RENTI AL/PL ATELE T monocytes 5 % not estab. normal Not Available [facility] ([facility]) [address] [place], [address], 12/12/2024 08:11:56 12/11/19 25 12/12/2024 CBC WITH DIFFE RENTI AL/PL ATELE T eos 1 % not estab. normal Not Available [facility] ([facility]) [address] [place], [address], 12/12/2024 08:11:56 12/11/19 25 12/12/2024 CBC WITH DIFFE RENTI AL/PL ATELE T basos 0 % not estab. normal Not Available [facility] ([facility]) [address] [place], [address], 12/12/2024 08:11:56 12/11/19 25 12/12/2024 CBC WITH DIFFE RENTI AL/PL ATELE T immature cells LICENSING WORKER Not Available [facility] ([facility]) [address] [place], [address], 12/12/2024 08:11:56 12/11/19 25 12/12/2024 CBC WITH DIFFE RENTI AL/PL ATELE T neutrophils (absolute) 5.9 x10e3 /uL 1.4-7. 0 normal Not Available [facility] ([facility]) [address] [place], [address], 12/12/2024 08:11:56 12/11/19 25 12/12/2024 CBC WITH DIFFE RENTI AL/PL ATELE T lymphs (absolute) 2.5 x10e3 /uL 0.7-3. 1 normal Not Available [facility] ([facility]) [address] [place], [address], 12/12/2024 08:11:56 12/11/19 25 12/12/2024 CBC WITH DIFFE RENTI AL/PL ATELE T monocytes(ab solute) 0.5 x10e3 /uL 0.1-0. 9 normal Not Available [facility] ([facility]) [address] [place], [address], 12/12/2024 08:11:56 12/11/19 25 12/12/2024 CBC WITH DIFFE RENTI AL/PL ATELE T eos (absolute) 0.1 x10e3 /uL 0.0-0. 4 normal Not Available [facility] ([facility]) [address] [place], [address], 12/12/2024 08:11:56 12/11/19 25 12/12/2024 CBC WITH DIFFE RENTI AL/PL ATELE T baso (absolute) 0.0 x10e3 /uL 0.0-0. 2 normal Not Available [facility] ([facility]) [address] [facility], [place], [address], 12/12/2024 08:11:56 12/11/19 25 12/12/2024 CBC WITH DIFFE RENTI AL/PL ATELE T immature granulocytes 0 % not estab. Not Available [facility] ([facility]) [address] [facility], [place], [address], 12/12/2024 08:11:56 12/11/19 25 12/12/2024 CBC WITH DIFFE RENTI AL/PL ATELE T immature grans (abs) 0.0 x10e3 /uL 0.0-0. 1 Not Available [facility] ([facility]) [address] [facility], [place], [address], 12/12/2024 08:11:56 12/11/19 25 12/12/2024 CBC WITH DIFFE RENTI AL/PL ATELE T NRBC [employer]ICENSING WORKER Not Available [facility] ([facility]) [address] [facility], [place], [address], 12/12/2024 08:11:56 12/11/19 25 12/12/2024 CBC WITH DIFFE RENTI AL/PL ATELE T hematology comments: LICENSING WORKER Not Available [facility] ([facility]) [address] [place], [address], 12/12/2024 08:11:56 12/11/19 25 12/12/2024 COMP. METAB OLIC PANEL (14) glucose 132 mg/dL 70-99 above high normal Not Available [facility] ([facility]) [address] [place], [address], 12/12/2024 08:11:57 12/11/19 25 12/12/2024 COMP. METAB OLIC PANEL (14) BUN 10 mg/dL 6-24 normal Not Available [facility] ([facility]) [address] [facility] [place], [address], 12/12/2024 08:11:57 12/11/19 25 12/12/2024 COMP. METAB OLIC PANEL (14) creatinine 0.91 mg/dL 0.57-1 .00 normal Not Available [facility] ([facility]) [address] [facility] [place], [address], 12/12/2024 08:11:57 12/11/19 25 12/12/2024 COMP. METAB OLIC PANEL (14) eGFR 76 mL/mi n/1.7 3 >59 normal Not Available [facility] ([facility]) [address] [facility], [place], [address], 12/12/2024 08:11:57 12/11/19 25 12/12/2024 COMP. METAB OLIC PANEL (14) BUN/creatini ne ratio 11 9-23 normal Not Available [facility] ([facility]) [address] [facility] [place], [address], 12/12/2024 08:11:57 12/11/19 25 12/12/2024 COMP. METAB OLIC PANEL (14) sodium 138 mmol/ L 134-14 4 normal Not Available [facility] ([facility]) [address] [facility] [place], [address], 12/12/2024 08:11:57 12/11/19 25 12/12/2024 COMP. METAB OLIC PANEL (14) potassium 4.4 mmol/ L 3.5-5. 2 normal Not Available [facility] ([facility]) [address] [facility] [place], [address], 12/12/2024 08:11:57 12/11/19 25 12/12/2024 COMP. METAB OLIC PANEL (14) chloride 103 mmol/ L 96-106 normal Not Available [facility] ([facility]) [address] [facility] [place], [address], 12/12/2024 08:11:57 12/11/19 25 12/12/2024 COMP. METAB OLIC PANEL (14) carbon dioxide, total 21 mmol/ L 20-29 normal Not Available [facility] ([facility]) [address] [facility] [place], [address], 12/12/2024 08:11:57 12/11/19 25 12/12/2024 COMP. METAB OLIC PANEL (14) calcium 9.0 mg/dL 8.7-10 .2 normal Not Available [facility] ([facility]) [address] [facility] [place], [address], 12/12/2024 08:11:57 12/11/19 25 12/12/2024 COMP. METAB OLIC PANEL (14) protein, total 7.0 g/dL 6.0-8. 5 normal Not Available [facility] ([facility]) [address] [facility] [place], [address], 12/12/2024 08:11:57 12/11/19 25 12/12/2024 COMP. METAB OLIC PANEL (14) albumin 4.0 g/dL 3.8-4. 9 normal Not Available [facility] ([facility]) [address] [facility] [place], [address], 12/12/2024 08:11:57 12/11/19 25 12/12/2024 COMP. METAB OLIC PANEL (14) globulin, total 3.0 g/dL 1.5-4. 5 Not Available [facility] ([facility]) [address] [facility] [place], [address], 12/12/2024 08:11:57 12/11/19 25 12/12/2024 COMP. METAB OLIC PANEL (14) bilirubin, total 0.2 mg/dL 0.0-1. 2 normal Not Available [facility] ([facility]) [address] [place], [address], 12/12/2024 08:11:57 12/11/19 25 12/12/2024 COMP. METAB OLIC PANEL (14) alkaline phosphatase 133 IU/L 44-121 above high normal Not Available [facility] ([facility]) [address] [facility] [place], [address], 12/12/2024 08:11:57 12/11/19 25 12/12/2024 COMP. METAB OLIC PANEL (14) AST (SGOT) 32 IU/L 0-40 normal Not Available [facility] ([facility]) [address] [facility] [place], [address], 12/12/2024 08:11:57 12/11/19 25 12/12/2024 COMP. METAB OLIC PANEL (14) ALT (SGPT) 69 IU/L 0-32 above high normal Not Available [facility] ([facility]) [address] [place], [address], 12/12/2024 08:11:57 12/11/19 25 12/12/2024 LIPID PANEL cholesterol, total 186 mg/dL 100-19 9 normal Not Available [facility] ([facility]) [address] [place], [address], 12/12/2024 08:11:57 12/11/19 25 12/12/2024 LIPID PANEL triglyceride s 115 mg/dL 0-149 normal Not Available [facility] ([facility]) [address] [place], [address], 12/12/2024 08:11:57 12/11/19 25 12/12/2024 LIPID PANEL HDL cholesterol 45 mg/dL >39 normal Not Available [facility]) [address] [place], [address], 12/12/2024 08:11:57 12/11/19 25 12/12/2024 LIPID PANEL VLDL cholesterol lamont 21 mg/dL 5-40 Not Available [facility] ([facility]) [address] [facility], [place], [address], 12/12/2024 08:11:57 12/11/19 25 12/12/2024 LIPID PANEL LDL chol calc ([facility]) 120 mg/dL 0-99 above high normal Not Available [facility] ([facility]) [address] [facility], [place], [address], 12/12/2024 08:11:57 12/11/19 25 12/12/2024 LIPID PANEL LDL calc comment: LICENSING WORKER Not Available [facility] ([facility]) [address] [facility], [place], [address], 12/12/2024 08:11:57 12/11/19 25 12/12/2024 HCV ANTIB JOANN CASCA DE(PC R/GEN O) HCV Ab NON REACTI VE non reacti ve Not Available [facility] ([facility]) [address] [facility], [place], [address], 12/12/2024 08:11:58 12/11/1912/12/2024 HCV ANTIB JOANN CASCA DE(PC R/GEN O) interpretati on: COMMEN T Not infec bimal with HCV unles s early or acute infec tion is suspe cted (whic h may be delay ed in an immun ocomp romis ed indiv idual ), or other evide nce exist s to indic ate HCV infec tion. Not Available [facility] ([facility]) [address] [facility], [place], [address], 12/12/2024 08:11:58 12/11/1912/12/2024 TSH TSH 0.542 uIU/m L 0.450- 4.500 normal Not Available [facility] ([facility]) [address] [facility], [place], [address], 12/12/2024 08:11:58 12/11/19 25 12/12/2024 VITAM IN [...] um and D. Alfredo gutierrez [place]: [facility] . 2. Josue chan [place], Thea brown [place], [place] off-F errar i DOMINGUEZ, et al. Evalu ation , treat ment, and preve ntion of vitam in D defic iency : an Endoc rine Socie ty clini lamont pract ice guide line. JCEM. 2010; 96(7) :1911 -30. Not Available [facility] ([facility]) [address] [facility], [place], [address], 12/12/2024 08:11:59 12/11/19 25 12/12/2024 HIV AB/P2 4 AG WITH REFLE X HIV Ab/P24 Ag screen NON REACTI VE non reacti ve HIV Negat jamila HIV-1 /HIV- 2 antib odies and HIV-1 p24 antig en were NOT detec bimal. There is no labor atory evide nce of HIV infec tion. Not Available [facility] ([facility]) [address] [facility], [place], [address], 12/12/2024 08:11:59 12/11/19 25 12/11/2024 micro album in/cr eatin ine, mass ratio , urine Microalbumin 10 mg/L Not Available [facility] [facility], [place], [address], 12/11/2024 14:24:45 12/11/19 25 12/11/2024 micro album in/cr eatin ine, mass ratio , urine Creatinine 50 mg/dL Not Available [facility] [address] [facility], [place], [address], 12/11/2024 14:24:45 12/11/19 25 12/11/2024 micro album in/cr eatin ine, mass ratio , urine Ratio <30 mg/g Not Available [facility] [address] [facility], [place], [address], 12/11/2024 14:24:45 12/11/19 25 12/11/2024 HbA1c (hemo globi n A1c), blood HbA1c 6.8 % Not Available [facility] [address] [facility], [place], [address], 12/11/2024 14:17:50 12/26/19 25 12/26/2024 FSH AND LH LH 40.9 mIU/m L normal Adult Femal e Range Folli cular phase 2.4 - 12.6 Ovula tion phase 14.0 - 95.6 Lutea l phase 1.0 - 11.4 Postm enopa usal 7.7 - 58.5 Not Available [facility] ([facility]) [address] [place], [address], 01/01/2025 09:08:21 12/26/19 25 12/26/2024 FSH AND LH FSH 56.4 mIU/m L Adult Femal e Range Folli cular phase 3.5 - 12.5 Ovula tion phase 4.7 - 21.5 Lutea l phase 1.7 - 7.7 Postm enopa usal 25.8 - 134.8 Not Available [facility] ([facility]) [address] [place], [address], 01/01/2025 09:08:21 12/26/19 25 12/26/2024 TSH TSH 0.508 uIU/m L 0.450- 4.500 normal Not Available [facility] ([facility]) [address] [facility], [place], [address], 01/01/2025 09:08:21 12/26/19 25 12/26/2024 RHEUM ATOID FACTO R (RF) rheumatoid factor (rf) <10.0 IU/mL <14.0 Not Available [facility] ([facility]) [address] [facility], [place], [address], 01/01/2025 09:08:22 12/26/1901/01/2025 TESTO STERO NE, TOTAL [...] 40 Not Available [facility] [address] [facility], [place], [address], 01/01/2025 09:08:22 12/26/19 25 12/26/2024 ANTI- CCP AB, IGG/I GA anti-ccp Ab, IgG/IgA 4 units 0-19 Negat jamila <20 Weak posit jamila 20 - 39 Moder ate posit jamila 40 - 59 Stron g posit jamila >59 Not Available [facility] ([facility]) [address] [facility], [place], [address], 01/01/2025 09:08:22 12/26/19 25 12/26/2024 ANTIN UCLEA R AB MULTI PLEX RFX 9 MARITA direct Negati ve negati ve Not Available [facility] ([facility]) [address] [facility], [place], [address], 01/01/2025 09:08:23 12/26/19 25 12/26/2024 SEDIM ENTAT ION RATE- WESTE RGREN sedimentatio n rate-westerg elsie 30 mm/HR 0-40 normal Not Available [facility] ([facility]) [address] [place], [address], 01/01/2025 09:08:23 12/26/19 25 12/26/2024 PROGE STERO NE progesterone 0.2 NG/mL normal Folli cular phase 0.1 - 0.9 Lutea l phase 1.8 - 23.9 Ovula tion phase 0.1 - 12.0 Pregn ant First trime ster 11.0 - 44.3 Secon d trime ster 25.4 - 83.3 Third trime ster 58.7 - 214.0 Postm enopa usal 0.0 - 0.1 Not Available [facility] ([facility]) [address] [place], [address], 01/01/2025 09:08:24 12/26/19 25 12/28/2024 ESTRO GENS, TOTAL estrogens, total 64 pg/mL normal Prepu isabella l < 40 Femal e Cycle : 1-10 Days 16 - 328 11-20 Days 34 - 501 21-30 Days 48 - 350 Post- Menop ausal 40 - 244 Not Available [facility] ([facility]) [address] [place], [address], 01/01/2025 09:08:24 12/26/19 25 12/26/2024 C-SCOTT CTIVE PROTE IN, QUANT C-reactive protein, quant 7 mg/L 0-10 normal Not Available [facility] ([facility]) [address] [place], [address], 01/01/2025 09:08:25 02/12/20 25 02/12/2025 H PYLOR I BREAT H TEST H pylori breath test Negati ve negati ve Not Available [facility] ([facility]) [address] [place], [address], 02/12/2025 14:13:20 03/11/20 25 03/11/2025 HbA1c (hemo globi n A1c), blood HbA1c 9.7 % Not Available [facility] [address], [place], [address], 03/11/2025 15:13:16 01/02/20 25 12/26/2024 XR, foot, 3 or more view No observ ation record ed. [address] (Med Record) [address] [place] [address] [address], [place], [address], 01/01/2025 14:29:34 02/19/20 25 02/13/2025 US, trans vagin al No observ ation record ed. [address] Scheduling Department -New Scheduling Process [address] [place] [address] [address], [place], [address], 02/18/2025 17:57:24 02/22/20 25 02/19/2025 CT, abdom en + pelvi s, w/o contr ast No observ ation record ed. [address] (Med Record) [address] [place] [address] [address], [place], [address], 02/21/2025 12:57:20 03/04/20 25 02/25/2025 US, gallb ladde r No observ ation record ed. [address] Scheduling Department -New Scheduling Process [address] [place] [address] [address], [place], [address], 03/07/2025 10:29:58 04/09/20 25 04/08/2025 XR, lumba r spine No observ ation record ed. [address] (Med Record) [address] [place] [address] [address], [place], [address], 04/09/2025 17:00:20 Result Notes None recorded. Problems Name Problem SNOMED Code Status Onset Date Resolution Date Notes Provider Name and Address Organization Details Recorded Time Type 2 diabetes mellitus without complicat ion 880503498 Active 2023 SIRI Stevens [address] [place] [address], [id number], [employer] 13:39:01 Low back pain 702742776 Active 2023 SIRI Stevens [address] [place] [address], [id number], [employer] 13:38:53 Cough 91781555 Completed 202312/13/2024 SIRI Stevens [address] [place] [address], 99527-563 8, [facility] 13:38:48 Depressiv e disorder 41775391 Active 2023 SIRI Stevens [address] [place] [address], [address]-788 8, [facility] 13:38:51 Viral gastroent eritis 979036889 Completed 202312/13/2024 SIRI Stevens [address] [place] [address], 65433-775 8, [facility] 13:38:58 Severe dry skin 988317684 Completed 202412/13/2024 SIRI Stevens [address] [place] [address], 31821-376 8, [facility] 13:38:56 Vitamin D deficienc y 37907164 Active 2024 SIRI Stevens [address] [place] [address], 37318-644 8, [facility] 13:39:14 Pain in right foot 601505583337 107 Active 2024 SIRI Stevens [address] [place] [address], 82[address]-805 8, [facility] 11:00:51 Pain in pelvis 46929727 Active 2024 SIRI Stevens [address] [place] [address], 80980-522 8, [facility] 5 14:11:13 Mixed hyperlipi demia 020087347 Active 2024 SIRI Stevens [address] [place] [address], 05167-533 8, [facility] 5 15:50:47 Type 2 diabetes mellitus 21632867 Active 2024 SIRI Stevens [address] [place] [address], 06432-604 8, [facility] 5 17:22:21 Lumbar disc prolapse with radiculop athy 837317166 Active 2024 SIRI Stevens [address] [place] [address], 22146-742 8, [facility] 15:43:38 Acute low back pain 206649943 Active 2024 SIRI Stevens [address] [place] [address], 81877-594 8, [facility] 09:12:29 Problem Notes None recorded. Procedures Surgical History Date Name Laterality Status Provider Name and Address Organization Details Recorded Time 12/26/19 25 Diabetic Foot Screen completed SIRI Stevens [address] [place] [address], [address], [facility] 12/25/2024 16:25:07 12/11/19 25 Diabetic Foot Screen completed SIRI Stevens [address] [place] [address], [address], [facility] 12/11/2024 17:41:57 11/08/19 25 Back Surgery completed [employer] 03/11/2025 15:11:41 08/13/20 24 Most Recent Mammogram completed [employer] 12/25/2024 10:03:46 07/24/20 03 Date of Last Pap Smear completed [facility] [employer] 07/27/2024 13:30:19 Back Surgery completed [employer] 07/27/2024 13:24:59 Caesarean Section completed [employer] 07/27/2024 13:24:59 Partial Hysterectomy completed [employer] 07/27/2024 13:24:59 Back Surgery completed [employer] 03/11/2025 15:11:48 Imaging Results None recorded. Procedure Notes None recorded. Medical Equipment None Reported. Allergies Allergen ID Allergen Name Allergen Category Reaction Reaction Severity Criticality Documentation Date Start Date Code Code System Note Provider Name and Address Organization Details Recorded Time 23524 morphine medicatio n Not available Not available Not available 04/05/2025 7052 RxNorm Joie Shankar [facility], [employer] 14:00:02 Medications Name Sig Start Date [...] Pulse oximetry Heart rate Body temperature Systolic And Diastolic Provider Name and Address Organization Details Last Updated DateTime 5 172.72 cm 34.1 kg/m2 888867. 69 g 96 % 96 % 84 /min 98.6 [degF] 118/78 mm[Hg] [employer] 5 10:00:04 Date Recorded Body height Body mass index (BMI) Body weight Oxygen saturation Oxygen saturation in Arterial blood by Pulse oximetry Heart rate Body temperature Systolic And Diastolic Provider Name and Address Organization Details Last Updated DateTime 5 172.72 cm 36 kg/m2 303106. 67 g 99 % 99 % 86 /min 98.2 [degF] 124/76 mm[Hg] [employer] 5 13:47:03 Date Recorded Body height Body mass index (BMI) Body weight Body temperature Oxygen saturation Oxygen saturation in Arterial blood by Pulse oximetry Heart rate Systolic And Diastolic Provider Name and Address Organization Details Last Updated DateTime 5 172.72 cm 36.6 kg/m2 239351. 04 g 98.3 [degF] 96 % 96 % 76 /min 122/76 mm[Hg] [employer] 5 15:09:38 Date Recorded Body height Body mass index (BMI) Body weight Body temperature Heart rate Oxygen saturation Oxygen saturation in Arterial blood by Pulse oximetry Systolic And Diastolic Provider Name and Address Organization Details Last Updated DateTime 172.72 cm 36.4 kg/m2 226309. 28 g 98.2 [degF] 85 /min 97 % 97 % 123/80 mm[Hg] Joie Shankar [employer] 5 14:02:28 Date Recorded Body height Body mass index (BMI) Body weight Oxygen saturation Oxygen saturation in Arterial blood by Pulse oximetry Heart rate Body temperature Systolic And Diastolic Provider Name and Address Organization Details Last Updated DateTime 5 172.72 cm 36.9 kg/m2 688910. 51 g 97 % 97 % 78 /min 98.1 [degF] 128/80 mm[Hg] [employer] 14:40:50 Social History Question Answer Notes LastModified by Organizat ion Details LastModified Time Tobacco Smoking Status Former Smoker Joie alvarado [employer] 12/11/2024 14:15:00 Do You Have An [...] not available 08/17/2024 What Type Of Senior Oracle Dba Do You Use? None Information not available [...] Do You Have A Medical Power Of Group Account Director? No Information not available 07/27/2024 What Was [...] Functional Status Question Answer Note LastModified by [employer] Details LastModified Time Do you use any [...] anxious, or unable to sleep at night)? [id number] Information not available 02/11/2025 Do you have [...] split virus, trivalent, PF completed SIRI Stevens [address] [place] [address], [address], [facility] [employer] 08/03/2024 10:54:01 Influenza, split virus, quadrivalent, preservative 7 completed Joie Shankar null, [employer] 12/11/2024 14:11:46 Influenza, split virus, trivalent, PF 8 completed Joie Shankar null, [employer] 12/11/2024 14:11:46 Td (adult), 2 Lf tetanus toxoid, preservative free, adsorbed 7 completed Joie Shankar null, [employer] 12/11/2024 14:11:46 Influenza, split virus, quadrivalent, PF 1 completed Joie Shankar null, [employer] 12/11/2024 14:11:46 Influenza, split virus, quadrivalent, PF 2 completed Joie Shankar null, [employer] 12/11/2024 14:11:46 Influenza, split virus, quadrivalent, PF 3 completed Joie Shankar null, [employer] 12/11/2024 14:11:46 Influenza, split virus, quadrivalent, PF 0 completed Joie Shankar null, [employer] 12/11/2024 14:11:46 Past Encounters Encounter ID Performer Location Encounter Start Date Encounter Closed Date Diagnosis/Indication Diagnosis SNOMED-CT Code Diagnosis ICD10 Code Diagnosis Note [id number] SIRI Stevens [address] [address] 07/27/2024 13:16:28 07/27/2024 14:03:57 Screening mammography 03517154 Z12.31 Type 2 anshul betes mellitus without complication 971262499 E11.9 Low back pain 149693945 M54.50 Cough 19703094 R05.9 Depressive disorder 3548 9007 F32.A [id number] SIRI Stevens [address] [address] 08/02/2024 09:24:54 08/02/2024 13:58:10 Administration of influenza vaccine 48100559 Z23 [id number] SIRI Stevens [address] [address] 12/11/2024 13:57:44 12/11/2024 14:51:40 Type 2 diabetes mellitus without complication 751481200 E11.9 Severe dry skin 11216019 2 L85.3 HIV screening 556743052 Z11.4 Hepatitis C screening 41 0399429 Z11.59 Body mass index 30+ - obesity 168465209 Z68.33 [id number] SIRI Stevens [address] [address] 12/25/2024 09:39:09 12/25/2024 11:00:14 Pain in right foot 0690135929 74713 M79.671 [employer] salt soaksVolta elsie gelKT tape Reduced libido 9820465 R 68.82 Severe dry skin 07608764 2 L85.3 [id number] SIRI Stevens [address] [address] 02/11/2025 13:40:39 02/11/2025 14:15:03 Burping 327306440 R14.2 Pain in pelvis 98287258 R10.2 [id number] SIRI Stevens [address] [address] 03/11/2025 15:00:51 03/11/2025 15:44:20 Type 2 diabetes mellitus 36151816 E11.9 Hga1c has gone up, but she was off Ozempic for a few weeks; will repeat next OV Depressive disorder 3548 9007 F32.A Vitamin D deficiency 347 58093 E55.9 Mixed hyperlipidemia 267 857682 E78.2 Essential hypertension 11529127 I10 Type 2 anshul betes mellitus without complication 732825459 E11.9 Cough 83954890 R05.9 [id number] SIRI Stevens [address] [address] 04/05/2025 13:46:18 04/05/2025 14:40:19 Acute low back pain 250127060 M54.50 Lumbar dis c prolapse with radiculopathy 365227041 M51.16 RTC if not improving [id number] SIRI Stevens [facility] [address] [place] [address] 04/08/2025 14:33:39 04/08/2025 15:06:20 Lumbar disc prolapse with radiculopathy 723385397 M51.16 Health Concerns Section Related Observation LastModified by Organization Detai ls LastModified Time None Recorded Concern Status LastModified by Organization Details LastModified Time None Recorded Advance Directives Directive N: Payers Insurance Date Sequence Insurance Name Policy Number Policy Henry Covered Member ID Henry Member ID Guarantor Name 04/05/2025 1 [employer] [facility] (MEDICAID HMO) Jenny Barr [id number] Jenny Barr Notes Date Note Type Note [...] no libido, hair loss. SIRI Stevens [address] [place], [address], [employer] 12/25/2024 16:28:18 02/11/2025 text/html Patient complain s of intermittent pelvic pain. Has been happening fort he past year or so. Has severe pain radiating into her vagina. Almost feels like something is going to fall out but has never felt a prolapse. Recently had lumbar surgery. Relieved pain in her hips but still has pain in her back. SIRI Stevens [address] [place], [address], [employer] 02/12/2025 13:58:00 03/11/2025 text/html Patient presents for followup. Due for refills. Has intermittent pain in right hand. HgA1c has gone up - she had lumbar fusion roughly 6 weeks ago and was off some of her meds for a while. SIRI Stevens [address] [place], [address], [employer] 03/11/2025 17:22:47 04/05/2025 text/html Patient states s he injured her back the last week of February. She was at her [employer] field day, got sprayed with water, and jerked involuntarily. Thought she had pulled a muscle but muscle relaxers, rest, heat havent really helped. By the end of the day pain radiates down her left hip. Had lumbar fusion back in October. SIRI Stevens [address] [place], [address], [employer] 04/05/2025 15:44:44 04/08/2025 text/html Patient states h er back is still very painful, possibly even worse. She has appointment with surgeon, but not until 04/24. She is unable to sleep. SIRI Stevens [address] [place], [address], [employer] 04/08/2025 17:46:15 OBGyn Episode No OBEpisode recorded.
--- OUTSIDE RECORDS SUMMARY | 2025-05-08 10:40 | XMS_ITS | Encounter Summary ---
Author Organization [facility] Address [address] [place] [address] Care Team Providers Care Paper Folder Name Role Phone Janet Chapman Primary Care Provider [phone] Clarence Rubin MD Unavailable Frankie Dalton MD Unavailable [phone] Frankie Dalton MD Unavailable [phone] Celi Murrell Unavailable [phone] Norberto West MD Unavailable [phone] Encounter Details Date Type Department Care Team (Late st Contact Info) Description 12/25/2021 Orders Only External Location [address] [place] [address] Celi Murrell PA [address] [facility] [address] [place] [address] Social History Tobacco Use Types Packs/Day Years [...] Description 08/07/2025 12:40 PM EDT Office Visit [facility] [address] [place] [address] Norberto West MD [address] [place] [address] documented as of this encounter [...] documented as of this encounter Care Teams Paper Folder Relationship Specialty Start Date End Date Janet Chapman PA [address] [place] [address] PCP - General 06/23/21 Clarence Rubin MD [address] [place] [address] Surgeon Neurosurgery 06/23/21 Frankie Dalton MD [address] [place] [address] Surgeon Neurosurgery 10/13/21 Frankie Dalton MD [address] [place] [address] Surgeon Neurosurgery 12/15/21 Celi Murrell PA [address] [place] [address] Physician [facility] F[facility] Neurosurgery 04/01/22 Norberto West MD [address] [place] [address] Surgeon Neurosurgery 10/29/24 documented as of this encounter
--- OUTSIDE RECORDS SUMMARY | 2025-05-08 10:40 | XMS_ITS | Continuity of Care Document ---
Author Organization [place] - [employer] [facility] Address [address] [place] [address] Assessment No assessment recorded. Plan of Treatment Reminders Order Date Submit Date Provider Last Modified By Organization Details Last Modified Time Details Appointments FOLLOW UP 30 2024 08:00A Gerhard Chapman PA-C Not available Not available Not available Lab HbA1c (hemoglob in A1c), blood 2024 025 [facility], [address] [facility], [place], [address], 03/11/2025 15:25:50 Referral None recorded. Procedures None recorded. Surgeries None recorded. Imaging None recorded. Medication Orders atorvasta tin 20 mg tablet 2024 025 [facility], [address] [place] [address], [place] [address], [place], [address], 03/11/2025 15:52:28 albuterol sulfate HFA 90 mcg/actua tion aerosol inhaler 2024 025 [facility], [address] [place] [address], [address], [place], [address], 03/11/2025 15:52:31 cholecalc iferol (vitamin D3) 50 mcg (2,000 unit) capsule 2024 025 [facility], [address] [place] [address], [address], [place], [address], 03/11/2025 15:52:33 ergocalci ferol (vitamin D2) 1,250 mcg (50,000 unit) capsule 2024 025 [facility], [address] [place] [address], [address], [place], [address], 03/11/2025 15:52:32 Ozempic 0.25 mg or 0.5 mg (2 mg/3 mL) subcutane ous pen injector 2024 025 [facility], [address] [place] [address], [address], [place], [address], 03/11/2025 15:52:30 lisinopri l 10 mg tablet 2024 025 [facility], [address] [place] [address], [place] [address], [place], [address], 03/11/2025 15:52:29 escitalop tyrese 20 mg tablet 2024 025 [facility], [address] [place] [address], [address], [place], [address], 03/11/2025 15:52:27 Rexulti 1 mg tablet 2024 025 [facility], [address] [place] [address], [place], [address], 03/11/2025 15:52:28 Patient TargetsNo targets recorded. Patient Instructions Encounter Date Encounter Id Patient Instructions Last Modified By Organization Details Last Modified Time 03/11/2025 [id number] learning about type 2 diabetes [email or web address] Not available 03/11/2025 15:16:41 type 2 diabetes: care instructions [email or web address] Not available 03/11/2025 15:16:41 learning about mood disorders Not available 03/11/2025 15:51:40 Reason for Referral None Reported. Results Created Date Observation Date Name Description Value Unit Range Abnormal Flag Note LastModifiedBy Organization Detail LastModifiedTime 03/11/20 25 03/11/2025 HbA1c (hemo globi n A1c), blood HbA1c 9.7 % Not Available [facility] [address] [facility], [place], [address], 03/11/2025 15:13:16 02/19/20 25 02/13/2025 US, trans vagin al No observ ation record ed. [address] Scheduling Department -New Scheduling Process [address] [facility] [address], [place], [address], 02/18/2025 17:57:24 02/22/20 25 02/19/2025 CT, abdom en + pelvi s, w/o contr ast No observ ation record ed. [address] (Med Record) [facility] [address], [place], [address], 02/21/2025 12:57:20 03/04/20 25 02/25/2025 US, gallb ladde r No observ ation record ed. [address] Scheduling Department -New Scheduling Process [facility] [address], [place], [address], 03/07/2025 10:29:58 04/09/20 25 04/08/2025 XR, lumba r spine No observ ation record ed. [address] (Med Record) [facility]0 [facility] [address], [place], [address], 04/09/2025 17:00:20 Result Notes None recorded. Problems Name Problem SNOMED Code Status Onset Date Resolution Date Notes Provider Name and Address Organization Details Recorded Time Type 2 diabetes mellitus without complicat ion 751522272 Active 2023 SIRI Stevens [address] [place] [address], [address], [facility] [employer] 13:39:01 Low back pain 518267106 Active 2023 SIRI Stevens [address] [place] [address], [address], [facility] 13:38:53 Cough 61645699 Completed 202312/13/2024 SIRI Stevens [address] [place] [address], [address], [employer] 13:38:48 Depressiv e disorder 04791168 Active 2023 SIRI Stevens [address] [place] [address], [address], [employer] 13:38:51 Viral gastroent eritis 208983461 Completed 202312/13/2024 SIRI Stevens [address] [place] [address], [address], [employer] 13:38:58 Severe dry skin 181703427 Completed 202412/13/2024 SIRI Stevens [address] [place] [address], [address], [employer] 13:38:56 Vitamin D deficienc y 26533030 Active 2024 SIRI Stevens [address] [place] [address], [address] 8, [employer] 13:39:14 Pain in right foot 950099236444 107 Active 2024 SIRI Stevens [address] [place] [address], [address] 8, [employer] 11:00:51 Pain in pelvis 13380113 Active 2024 SIRI Stevens [address] [place] [address], [address] 8, [employer] 14:11:13 Mixed hyperlipi demia 123677900 Active 2024 SIRI Stevens [address] [place] [address], [address] 8, [employer] 15:50:47 Type 2 diabetes mellitus 96148197 Active 2024 SIRI Stevens [address] [place] [address], [address] 8, [employer] 17:22:21 Lumbar disc prolapse with radiculop athy 253079227 Active 2024 SIRI Stevens [address] [place] [address], [address] 8, [employer] 15:43:38 Acute low back pain 712538441 Active 2024 SIRI Stevens [address] [place] [address], [address] 8, [employer] 09:12:29 Problem Notes None recorded. Procedures Surgical History Date Name Laterality Status Provider Name and Address Organization Details Recorded Time 12/26/19 25 Diabetic Foot Screen completed SIRI Stevens [address] [place] [address], [address], [employer] 12/25/2024 16:25:07 12/11/19 25 Diabetic Foot Screen completed SIRI Stevens [address] [place] [address], [address], [employer] 12/11/2024 17:41:57 11/08/19 25 Back Surgery completed [employer] 03/11/2025 15:11:41 08/13/20 24 Most Recent Mammogram completed [employer] 12/25/2024 10:03:46 07/24/20 03 Date of Last Pap Smear completed [employer] 07/27/2024 13:30:19 Back Surgery completed [employer] 07/27/2024 13:24:59 Caesarean Section completed [employer] 07/27/2024 13:24:59 Partial Hysterectomy completed [employer] 07/27/2024 13:24:59 Back Surgery completed [employer] 03/11/2025 15:11:48 Imaging Results None recorded. Procedure Notes None recorded. Medical Equipment None Reported. Allergies Allergen ID Allergen Name Allergen Category Reaction Reaction Severity Criticality Documentation Date Start Date Code Code System Note Provider Name and Address Organization Details Recorded Time 09215 morphine medicatio n Not available Not available Not available 04/05/2025 7052 RxNorm Joie [facility] [employer] [facility]. 14:00:02 Medications Name Sig Start Date Stop [...] Last Updated DateTime 172.72 cm 36.6 kg/m2 562431. 04 g 98.3 [degF] 96 % 96 % 76 /min 122/76 mm[Hg] [facility] [employer] 15:09:38 Social History Question Answer Notes LastModified by Organizat ion Details LastModified Time Tobacco Smoking Status Former Smoker Joie alvarado [employer] 12/11/2024 14:15:00 Do You Have An Advance [...] Information not available 08/17/2024 What Type Of Heating Element Repairer Do You Use? None Information not [...] Do You Have A Medical Power Of Traveling Repair Accountant? No Information not available 07/27/2024 What Was [...] Functional Status Question Answer Note LastModified by [employer] ion Details LastModified Time Do you use [...] anxious, or unable to sleep at night)? [id number] Information not available 02/11/2025 Do you have [...] virus, trivalent, PF 4 completed SIRI Stevens [address] [place] [address], [address], [facility] [employer] 08/03/2024 10:54:01 Influenza, split virus, quadrivalent, preservative 7 completed Joie alvarado [employer] 12/11/2024 14:11:46 Influenza, split virus, trivalent, PF 8 completed Joie Shankar null, [employer] 12/11/2024 14:11:46 Td (adult), 2 Lf tetanus toxoid, preservative free, adsorbed 7 completed Joie Shankar null, [employer] 12/11/2024 14:11:46 Influenza, split virus, quadrivalent, PF 1 completed Joie Shankar null, [employer] 12/11/2024 14:11:46 Influenza, split virus, quadrivalent, PF 2 completed Joie Shankar null, [employer] 12/11/2024 14:11:46 Influenza, split virus, quadrivalent, PF 3 completed Joie Shankar null, [employer] 12/11/2024 14:11:46 Influenza, split virus, quadrivalent, PF 0 completed Joietwyla Shankar null, [employer] 12/11/2024 14:11:46 Past Encounters Encounter ID Performer Location Encounter Start Date Encounter Closed Date Diagnosis/Indication Diagnosis SNOMED-CT Code Diagnosis ICD10 Code Diagnosis Note [id number] SIRI Stevens [facility] [address] [place] [address] 02/11/2025 13:40:39 02/11/2025 14:15:03 Burping 840890093 R14.2 Pain in pelvis 97799316 R10.2 [id number] SIRI Stevens [facility] [address] [place] [address] 2 03/11/2025 15:00:51 03/11/2025 15:44:20 Type 2 diabetes mellitus 20524189 E11.9 Hga1c has gone up, but she was off Ozempic for a few weeks; will repeat next OV Depressive disorder 3548 9007 F32.A Vitamin D deficiency 347 82196 E55.9 Mixed hyperlipidemia 267 254520 E78.2 Essential hypertension 93615185 I10 Type 2 anshul betes mellitus without complication 197601278 E11.9 Cough 99095079 R05.9 Health Concerns Section Related Observation LastModified by Organization Detai ls LastModified Time None Recorded Concern Status LastModified by Organization Details LastModified Time None Recorded Payers Encounter Date Sequence Insurance Name Policy Number Policy Henry Covered Member ID Henry Member ID Guarantor Name 03/11/2025 1 [employer] [facility] (MEDICAID HMO) Jenny Barr [id number] Jenny Barr Notes Date Note Type Note Provider Name and Address Organization Details Recorded Time 03/11/2025 text/html Patient presents for followup. Due for refills. Has intermittent pain in right hand. HgA1c has gone up - she had lumbar fusion roughly 6 weeks ago and was off some of her meds for a while. SIRI Stevens [address] [place] [address], [place], [address], [facility] [employer] 03/11/2025 17:22:47 OBGyn Episode No OBEpisode recorded.
== END 2025-05-08 23:59 | disposition home or self-care (01) ==
LOC: RAD 10:37
PROVIDERS: PCP Physician Assistant; Visit Provider Physician Assistant
DX: M19.012 Primary osteoarthritis, left shoulder (principal)
CPT/HCPCS: 73030

== ENCOUNTER 2025-05-22 08:00 | Outpatient (RCR) | payer OTHER, SELFPAY | END 2025-05-22 23:59 | disposition home or self-care (01) | LOC: OT 08:00 | PROVIDERS: PCP Physician Assistant; Visit Provider Orthopaedic Surgery | DX: M25.312 Other instability, left shoulder (principal) | CPT/HCPCS: 97014; 97110; 97140; 97166; G0283 ==

== ENCOUNTER 2025-05-22 09:00 | Outpatient (RCR) | payer OTHER, SELFPAY | END 2025-05-22 23:59 | disposition home or self-care (01) | LOC: PT 09:00 | PROVIDERS: Visit Provider Physician Assistant | DX: M54.50 Low back pain, unspecified (principal) | CPT/HCPCS: 97014; 97110; 97161; G0283 ==

== ENCOUNTER 2025-05-23 19:25 | Emergency (ER) | payer OTHER, SELFPAY ==
--- OUTSIDE RECORDS SUMMARY | 2025-04-24 09:44 | XMS_ITS | Encounter Summary ---
Author Organization [facility] Address [address] [place] [address] Care Team Providers Care Income Tax Analyst Name Role Phone Janet Chapman Primary Care Provider [phone] Clarence Rubin MD Unavailable Frankie Dalton MD Unavailable [phone] Frankie Dalton MD Unavailable [phone] Celi Murrell Unavailable [phone] Norberto West MD Unavailable [phone] Encounter Details Date Type Department Care Team (Latest Contact Info) Description 04/24/2025 9:44 AM EDT - 04/24/2025 11:59 PM EDT Hospital Encounter [place] [facility] [address] [place] [address] Status post lumbar spinal fusion Discharge Disposition: [...] (2000 UT) capsule 12/13/2024 ergocalciferol 1.25 MG (26929 UT) capsule Takes on Sundays02/23/2024 escitalopram (Lexapro) 20 MG tablet Take 1 tablet (20 mg) by mouth daily. lisinopril 10 MG tablet Take 1 tablet (10 mg) by mouth nightly. 08/21/2018 naloxone (Narcan) 4 mg/0.1 mL nasal spray 1. Give 1 spray in nostril for no/slow breathing or cannot wake after opioid use 2. Call 911 3. Repeat in other nostril if symptoms continue 1 each 11/09/2024 Ozempic, 0.25 or 0.5 MG/DOSE, 2 MG/3ML solution pen-injector Saturdays07/30/2024 varenicline (Chantix) 1 MG tablet 2 (two) times a day. celecoxib (CeleBREX) 200 MG capsule Take 1 capsule by mouth daily. 04/02/2025 cyclobenzaprine (Flexeril) 10 MG tablet Take 1 tablet by mouth 2 times a day as needed. 04/22/2025 estradiol (Estrace) 0.1 MG/GM vaginal cream Insert 2 g into the vagina daily. 02/25/2025 fluconazole (Diflucan) 150 MG tabletIndication s:Acute cystitis without hematuria,Yeast UTI Take one po q day at onset of symptoms, may repeat day #3 if needed. 2 tablet 10/31/2024 methylPREDNISolo ne (Medrol Dospak) 4 MG tabletsIndicatio ns:Status post lumbar spinal fusion,Postopera tive pain Follow schedule on package instructions 21 tablet 01/21/2025 oxybutynin XL (Ditropan-XL) 10 MG 24 hr tablet Take 1 tablet by mouth daily. 04/02/2025 traMADol (Ultram) 50 MG tablet Take 1 tablet by mouth every 6 hours as needed for moderate pain. 04/22/2025 documented as of this encounter Plan of Treatment Upcoming Encounters Date Type Department Care Team (Late st Contact Info) Description 08/07/2025 12:40 PM EDT Office Visit [facility] Orthopaedic Surgery & Sports Medicine [address] [place] [address] Norberto West MD [address] [place] [address] documented as of this encounter [...] documented as of this encounter Care Teams Income Tax Analyst Relationship Specialty Start Date End Date Janet Chapman PA [address] [place] [address] PCP - General 06/23/21 Clarence Rubin MD [address] [place] [address] Surgeon Neurosurgery 06/23/21 Frankie Dalton MD [address] [place] [address] Surgeon Neurosurgery 10/13/21 Frankie Dalton MD [address] [place] [address] Surgeon Neurosurgery 12/15/21 Celi Murrell PA [address] [place] [address] Physician Metallographer Neurosurgery 04/01/22 Norberto West MD [address] [place] [address] Surgeon Neurosurgery 10/29/24 documented as of this encounter
--- OUTSIDE RECORDS SUMMARY | 2025-04-24 13:40 | XMS_ITS | Encounter Summary ---
Author Organization [facility] Address [address] [place] [address] Care Team Providers Care Gut Dropper Name Role Phone Janet Chapman Primary Care Provider [phone] Clarence Rubin MD Unavailable Frankie Dalton MD Unavailable [phone] Frankie Dalton MD Unavailable [phone] Celi Winter Unavailable [phone] Norberto West MD Unavailable [phone] Encounter Details Date Type Department Care Team (Late st Contact Info) Description 04/24/2025 1:40 PM EDT Office Visit [facility] [address] [place] [address] Norberto West MD [address] [place] [address] S/P lumbar fusion (Primary Dx); [...] coordination of care. I spent >50% in mvrp-ea-somb communication with the patient over the diagnosis, treatment options and plan. Norberto West MD MS Cash Register Balancer of Neurosurgery Complex and Minimally Invasive Spine Surgery [address] [place] [address] [place], [address] Addendum 05/23/2025: Physical therapy notes have been [...] Description 08/07/2025 12:40 PM EDT Office Visit [facility] Orthopaedic Surgery & Sports Medicine [address] [place] [address] Norberto West MD [address] [place] [address] documented as of this encounter [...] documented as of this encounter Care Teams Gut Dropper Relationship Specialty Start Date End Date Janet Chapman PA [address] [place] [address] PCP - General 06/23/21 Clarence Rubin MD [address] [place] [address] Surgeon Neurosurgery 06/23/21 Frankie Dalton MD [address] [place] [address] Surgeon Neurosurgery 10/13/21 Frankie Dalton MD [address] [place] [address] Surgeon Neurosurgery 12/15/21 Celi Winter PA [address] [place] [address] Physician Senior Power Scheduler Neurosurgery 04/01/22 Norberto West MD [address] [facility] [address] [place] [address] Surgeon Neurosurgery 10/29/24 documented as of this encounter
--- OUTSIDE RECORDS SUMMARY | 2025-05-23 19:33 | XMS_ITS | Encounter Summary ---
Author Organization [facility] Address [address] [place] [address] Care Team Providers Care Leach Tank Tender Name Role Phone Janet Chapman Primary Care Provider [phone] Clarence Rubin MD Unavailable Frankie Dalton MD Unavailable [phone] Frankie Dalton MD Unavailable [phone] Celi Murrell Unavailable [phone] Norberto West MD Unavailable [phone] Encounter Details Date Type Department Care Team (Late st Contact Info) Description 04/23/2025 Orders Only [place] [facility] [address], [address] [place] [address] Norberto West MD [address] [place] [address] Status post lumbar spinal fusion [...] Description 08/07/2025 12:40 PM EDT Office Visit [facility] Orthopaedic Surgery & Sports Medicine [address], [address] [place] [address] Norberto West MD [address] [place] [address] documented as of this encounter [...] documented as of this encounter Care Teams Leach Tank Tender Relationship Specialty Start Date End Date Janet Chapman PA [address] [place] [address] PCP - General 06/23/21 Clarence Rubin MD [address] [place] [address] Surgeon Neurosurgery 06/23/21 Frankie Dalton MD [address] [place] [address] Surgeon Neurosurgery 10/13/21 Frankie Dalton MD [address] [place] [address] Surgeon Neurosurgery 12/15/21 Celi Murrell PA [address] [place] [address] Physician Electrical Timing Device Calibrator Neurosurgery 04/01/22 Norberto West MD [address] [place] [address] Surgeon Neurosurgery 10/29/24 documented as of this encounter
--- OUTSIDE RECORDS SUMMARY | 2025-05-23 19:33 | XMS_ITS | Clinical Summary ---
Author Organization [facility] Address [address] [place] [address] Care Team Providers Care Cancer Registrar Name Role Phone Janet Chapman Primary Care Provider [phone] Allergies No known active allergies Medications escitalopram (LEXAPRO) 10 MG tablet 09/24/2021 Active Vraylar 1.5 MG capsule capsule 09/24/2021 Act jamila atorvastatin (LIPITOR) 20 MG tablet 08/11/2021 Active lisinopril (PRINIVIL,ZESTRI L) 10 MG tablet Take 10 mg by mouth Daily As Needed. 08/11/2021 Active oxybutynin (DITROPAN) 5 MG tablet 06/22/2021 Active celecoxib (CeleBREX) 200 MG capsule 07/20/2021 Active Active Problems No known active problems Family History Relation Name Status Comments Father Alive Mother Alive Social History Tobacco Use Types Packs/Day Years Used Date Smoking Tobacco: Every Day Cigarettes Smokeless Tobacco: Never Alcohol Use Standard Drinks/Week Comments Yes 0 (1 standard drink = 0.6 oz pur e alcohol) rare Abuse Screen Answer Date Recorded Unsafe at Home or Work/School Not on file Feels Threatened by Someone? Not on file Does Anyone Keep You from Co ntacting Others or Doint Things Outside the Home? Not on file 08/05/2023 Physical Sign of Abuse Present Not on file 1 Housing Stability Answer Date Recorded Current Living Arrangements Not on file 07/24 Potentially Unsafe Housing Conditions Not on kate e 08/05/2023 Family and Community Support Answer Nigel e Recorded Help with Day-to-Day Activities Not on file 08/05/2023 Lonely or Isolated Not on file 08/05/2023 Employment Answer Date Recorded Do you want help finding or keeping work or a maira b? Not on file 08/05/2023 Disabilities Answer Date Recorded Concentrating, Remembering, or Making Decisions Difficulty Not on file 08/05/2023 Doing Errands Independently Difficulty Not on fi le 08/05/2023 Education Answer Date Recorded Help with school or training? Not on file Preferred Language Not on file 08/05/2023 Comments Unknown Sex and Gender Information Value Date Recorded Sex Assigned at Not on file Legal Sex Female 2:22 PM EDT Gender Identity Not on file Sexual Orientation Not on file Last Filed Vital Signs Vital Sign Reading Time Taken Comments Blood Pressure 142/78 09/25/2021 10:22 AM EST Pulse - - Temperature 36.4 C (97.6 F) 09/25/2021 10:22 AM EST Respiratory Rate - - Oxygen Saturation - - Inhaled Oxygen Concentration - - Weight 103 kg (226 lb) 09/25/2021 10:22 AM EST Height 172.7 cm (5' 8 ) 09/25/2021 10:22 AM EST Body Mass Index 34.36 09/25/2021 10:22 AM EST Plan of Treatment Health Maintenance Due Date Last Done Comments Annual Gynecologic Pelvic and Breast Exam 1973 TDAP/TD VACCINES (2 - Tdap) 12/29/2006 12/29/1996 MAMMOGRAM 2013 COLOGUARD 2018 COLON CANCER SCREENING 5 YEA R SIGMOIDOSCOPY 2018 COLONOSCOPY [address] CANCER SCREENING 2018 CT COLONOGRAPHY 2018 FECAL OCCULT BLOOD TEST 2018 FIT Testing (1 year) 2018 ANNUAL PHYSICAL 09/25/2021 HEPATITIS C SCREENING 09/25/2021 Pneumococcal Vaccine 50+ (1 of 1 - PCV) 2023 ZOSTER VACCINE (1 of 2) 2023 COVID-19 Vaccine (1 - 2023- season) 2024 INFLUENZA VACCINE 07/24/2025 08/15/2018, 08/15/2018 Insurance [employer]LO [employer]ENTER[employer] [id number] Care Teams Cancer Registrar Relationship Specialty Start Date End Date Janet Chapman PA PCP - General Physician Patient Registration Specialist 07/14/21
--- OUTSIDE RECORDS SUMMARY | 2025-05-23 19:33 | XMS_ITS | Encounter Summary ---
Author Organization [facility] Address [address] [place] [address] Care Team Providers Care Clinical Studies Specialist Name Role Phone Janet Chapman Primary Care Provider [phone] Clarence Rubin MD Unavailable Frankie Dalton MD Unavailable [phone] Frankie Dalton MD Unavailable [phone] Celi Murrell Unavailable [phone] Norberto West MD Unavailable [phone] Reason for Referral * Imaging (Urgent) - Authorized Specialty Diagnoses / Procedures Referred By Contac t Referred To Contact Diagnoses Status post lumbar spinal fusion Low back pain, unspecified back pain laterality, unspecified chronicity, unspecified whether sciatica present Bilateral lower extremity pain Lumbar radiculopathy Lumbar spondylosis Procedures MR Lumbar Spine wo IV Contrast Celi Murrell PA [address] [place] [address] Phone: tel: fax: Referral ID Status Reason Start Date Expiration Date V isits Requested Visits Authorized [id number] Authorized 05/23/2025 11/22/2026 1 1 Encounter Details Date Type Department Care Team (Late st Contact Info) Description 05/23/2025 Orders Only [facility] [address], [address] [place] [address] Celi Murrell PA [id number] [place] [address] Status post lumbar spinal fusion (Primary Dx); Low back pain, unspecified back pain laterality, unspecified chronicity, unspecified whether sciatica present; Bilateral lower extremity pain; Lumbar radiculopathy; Lumbar spondylosis Social History Tobacco Use Types Packs/Day Years [...] Description 08/07/2025 12:40 PM EDT Office Visit [facility] Orthopaedic Surgery & Sports Medicine [address], [address] [place] [address] Norberto West MD [address] [address] Scheduled Orders Name Type Priority Associated Diagnoses Orde r Schedule MR Lumbar Spine wo IV Contrast Imaging STAT Status post lumbar spinal fusion Low back pain, unspecified back pain laterality, unspecified chronicity, unspecified whether sciatica present Bilateral lower extremity pain Lumbar radiculopathy Lumbar spondylosis Expected: 05/24/2025 (Approximate), Expires: 11/24/2026 documented as of this encounter Visit Diagnoses Diagnosis Status post lumbar spinal fusion- Primary Arthrodesis status Low back pain, unspecified back pain laterality, unspecified chronicity, unspecified whether sciatica present Bilateral lower extremity pain Lumbar radiculopathy Thoracic or lumbosacral neuritis or radiculitis, unspecified Lumbar spondylosis Lumbosacral spondylosis without myelopathy documented in this encounter Additional Health Concerns Assessment Noted Time A fall risk assessment has been complete d for the patient 04/24/2025 2:23 PM EDT A Body Mass Index follow-up plan has been documented for the patient 04/24/2025 3:24 PM EDT documented as of this encounter Care Teams Clinical Studies Specialist Relationship Specialty Start Date End Date Janet Chapman PA [address] [facility] [place] [address] PCP - General 06/23/21 Clarence Rubin MD [address] [place] [address] Surgeon Neurosurgery 06/23/21 Frankie Dalton MD [address] [place] [address] Surgeon Neurosurgery 10/13/21 Frankie Dalton MD [address] [place] [address] Surgeon Neurosurgery 12/15/21 Celi Murrell PA [address] [place] [address] Physician Managed Care Provider Neurosurgery 04/01/22 Norberto West MD [address] [place] [address] Surgeon Neurosurgery 10/29/24 documented as of this encounter
--- OUTSIDE RECORDS SUMMARY | 2025-05-23 19:33 | XMS_ITS | Encounter Summary ---
Author Organization [facility] Address [address] [place] [address] Care Team Providers Care Manager Employment Name Role Phone Janet Chapman Primary Care Provider [phone] Clarence Rubin MD Unavailable Frankie Dalton MD Unavailable [phone] Frankie Dalton MD Unavailable [phone] Celi Murrell Unavailable [phone] Norberto West MD Unavailable [phone] Encounter Details Date Type Department Care Team (Late st Contact Info) Description 03/17/2021 Orders Only [place] [facility] [address], [address] [place] [address] Des Da Silva MD [address] [place] [address] Lumbar radiculopathy (Primary Dx) Social [...] [address], [address] [place] [address] Norberto West MD [address] [place] [address] documented as of this encounter Visit Diagnoses Diagnosis Lumbar radiculopathy- Primary Thoracic or lumbosacral neuritis or radiculitis, unspecified documented in this encounter Care Teams Manager Employment Relationship Specialty Start Date End Date Janet Chapman PA [address] [place] [address] PCP - General 06/23/21 Clarence Rubin MD [address] [place] [address] Surgeon Neurosurgery 06/23/21 Frankie Dalton MD [address] [place] [address] Surgeon Neurosurgery 10/13/21 Frankie Dalton MD [address] [place] [address] Surgeon Neurosurgery 12/15/21 Celi Murrell PA [address] [place] [address] Physician Paralegal Instructor Neurosurgery 04/01/22 Norberto West MD [address] [place] [address] Surgeon Neurosurgery 10/29/24 documented as of this encounter
--- OUTSIDE RECORDS SUMMARY | 2025-05-23 19:33 | XMS_ITS | Encounter Summary ---
Author Organization [facility] Address [address] [place] [address] Care Team Providers Care Digital Content Specialist Name Role Phone Janet Chapman Primary Care Provider [phone] Clarence Rubin MD Unavailable Frankie Dalton MD Unavailable [phone] Frankie Dalton MD Unavailable [phone] Celi Murrell Unavailable [phone] Norberto West MD Unavailable [phone] Encounter Details Date Type Department Care Team (Late st Contact Info) Description 04/12/2025 Telephone [place] [facility] [address]st [place] [address] Norberto West MD [address] [place] [address] Social History Tobacco Use Types [...] optimal time of day to reach caller: [phone] Note: Please do not reply to this message. Follow-up communication and further actions as a result of this message need to be communicated with the patient directly, if the patient is not active onMyChart. If the patient is active on MyChart, they will receive notification of the communication/outcome via WO [employer]. documented in this encounter Plan of Treatment Upcoming Encounters Date Type Department Care Team (Late st Contact Info) Description 08/07/2025 12:40 PM EDT Office Visit [facility] Orthopaedic Surgery & Sports Medicine [address] [place] [address] Norberto West MD [id number] [place] [address] documented as of this encounter Visit Diagnoses Not on filedocumented in this encounter Additional Health Concerns Assessment Noted Time A fall risk assessment has been complete d for the patient 02/06/2025 3:12 PM EDT A Body Mass Index follow-up plan has been documented for the patient 02/06/2025 6:10 PM EDT documented as of this encounter Care Teams Digital Content Specialist Relationship Specialty Start Date End Date Janet Chapman PA [address] [place] [address] PCP - General 06/23/21 Clarence Rubin MD [id number] [place] [address] Surgeon Neurosurgery 06/23/21 rFankie Dalton MD [address] [place] [address] Surgeon Neurosurgery 10/13/21 Frankie Dalton MD [address] [place] [address] Surgeon Neurosurgery 12/15/21 Celi Murrell PA [address] [place] [address] Physician Quality Improvement Engineer Neurosurgery 04/01/22 Norberto West MD [address] [place] [address] Surgeon Neurosurgery 10/29/24 documented as of this encounter
--- OUTSIDE RECORDS SUMMARY | 2025-05-23 19:33 | XMS_ITS | Encounter Summary ---
Author Organization [facility] Address [address] [place] [address] Care Team Providers Care Vp Mobile Products Name Role Phone Janet Chapman Primary Care Provider [phone] Clarence Rubin MD Unavailable Frankie Dalton MD Unavailable [phone] Frankie Dalton MD Unavailable [phone] Celi Murrell Unavailable [phone] Norberto West MD Unavailable [phone] Encounter Details Date Type Department Care [...] Description 08/07/2025 12:40 PM EDT [facility] [address], [address] [place] [address] Norberto West MD [address] [place] [address] documented as of this encounter Visit Diagnoses Not on filedocumented in this encounter Additional Health Concerns Assessment Noted Time A fall risk assessment has been complete d for the patient 02/06/2025 3:12 PM EDT A Body Mass Index follow-up plan has been documented for the patient 02/06/2025 6:10 PM EDT documented as of this encounter Care Teams Vp Mobile Products Relationship Specialty Start Date End Date Janet Chapman PA [address] [place] [address] PCP - General 06/23/21 Clarence Rubin MD [address] [place] [address] Surgeon Neurosurgery 06/23/21 Frankie Dalton MD [address] [place] [address] Surgeon Neurosurgery 10/13/21 Frankie Dalton MD [address] [place] [address] Surgeon Neurosurgery 12/15/21 Celi Murrell PA [address] [place] [address] Physician Block Cutter Neurosurgery 04/01/22 Norberto West MD [address] [place] [address] Surgeon Neurosurgery 10/29/24 documented as of this encounter
--- OUTSIDE RECORDS SUMMARY | 2025-05-23 19:34 | XMS_ITS | Encounter Summary ---
Author Organization [facility] Address [address] [place] [address] Care Team Providers Care Grapple Skidder Operator Name Role Phone Janet Cahpman Primary Care Provider [phone] Clarence Rubin MD Unavailable Frankie Dalton MD Unavailable [phone] Frankie Dalton MD Unavailable [phone] Celi Murrell Unavailable [phone] Norberto West MD Unavailable [phone] Encounter Details Date Type Department Care Team (Late st Contact Info) Description 12/25/2021 Orders Only External Location [address] [place] [address] Celi Murrell PA [address] [facility] [address] [place] [address] Social History Tobacco Use Types Packs/Day Years [...] Description 08/07/2025 12:40 PM EDT Office Visit [facility] Orthopaedic Surgery & Sports Medicine [address] [place] [address] Norberto West MD [address] [place] [address] documented as of this encounter [...] documented as of this encounter Care Teams Grapple Skidder Operator Relationship Specialty Start Date End Date Janet Chapman PA [address] [place] [address] PCP - General 06/23/21 Clarence Rubin MD [address] [place] [address] Surgeon Neurosurgery 06/23/21 Frankie Dalton MD [address] [place] [address] Surgeon Neurosurgery 10/13/21 Frankie Dalton MD [address] [place] [address] Surgeon Neurosurgery 12/15/21 Celi Murrell PA [address] [place] [address] Physician Semi Driver Neurosurgery 04/01/22 Norberto West MD [address] [place] [address] Surgeon Neurosurgery 10/29/24 documented as of this encounter
--- OUTSIDE RECORDS SUMMARY | 2025-05-23 19:34 | XMS_ITS | Encounter Summary ---
Author Organization [facility] Address [address] [place] [address] Care Team Providers Care Cableway Operator Name Role Phone Janet Chapman Primary Care Provider [phone] Clarence Rubin MD Unavailable Frankie Dalton MD Unavailable [phone] Frankie Dalton MD Unavailable [phone] Celi Murrell Unavailable [phone] Norberto West MD Unavailable [phone] Encounter Details Date Type Department Care [...] Description 08/07/2025 12:40 PM EDT Office Visit [facility] [address] [place] [address] Norberto West MD [address] [place] [address] documented as of this encounter Visit Diagnoses Not on filedocumented in this encounter Additional Health Concerns Assessment Noted Time A fall risk assessment has been complete d for the patient 04/24/2025 2:23 PM EDT A Body Mass Index follow-up plan has been documented for the patient 04/24/2025 3:24 PM EDT documented as of this encounter Care Teams Cableway Operator Relationship Specialty Start Date End Date Janet Chapman PA [address] [place] [address] PCP - General 06/23/21 Clarence Rubin MD [address] [place] [address] Surgeon Neurosurgery 06/23/21 Frankie Dalton MD [address] [place] [address] Surgeon Neurosurgery 10/13/21 Frankie Dalton MD [address] [place] [address] Surgeon Neurosurgery 12/15/21 Celi Murrell PA [address] [place] [address] Physician Channeler Runner Neurosurgery 04/01/22 Norberto West MD [address] [place] [address] Surgeon Neurosurgery 10/29/24 documented as of this encounter
--- OUTSIDE RECORDS SUMMARY | 2025-05-23 19:34 | XMS_ITS | Clinical Summary ---
Author Organization [facility] Address [address] [place] [place] [address] Care Team Providers Care School Counselor Name Role Phone Janet Chapman Primary Care Provider [phone] Clarence Rubin MD Unavailable Frankie Dalton MD Unavailable [phone] Frankie Dalton MD Unavailable [phone] Celi Murrell Unavailable [phone] Norberto eWst MD Unavailable [phone] Allergies Active Allergy Reactions Criticality Noted [...] (1 mg). 4 Active ergocalciferol 1.25 MG (98723 UT) capsule Takes on Sundays 4 Active [...] Encounters Date Type Department Care Team Description 05/23/2025 Orders Only [facility] [address], [address] [place] [phone] Celi Murrell PA Status post lumbar spinal fusion (Primary Dx); Low back pain, unspecified back pain laterality, unspecified chronicity, unspecified whether sciatica present; Bilateral lower extremity pain; Lumbar radiculopathy; Lumbar spondylosis 04/24/2025 1:40 PM EDT Office Visit [facility]opa[facility] Surgery & [facility] Medicine [address], [address] [place] [address] [address] [place] [address] Norberto West MD S/P lumbar fusion (Primary Dx); Sacroiliac joint pain 04/24/2025 9:44 AM EDT - 04/24/2025 11:59 PM EDT Hospital Encounter [facility] Radiology [address], [address] [place] [phone] Status post lumbar spinal fusion Discharge Disposition: Home or Self Care 04/24/2025 Travel 04/23/[address] [facility] [address], [address] [place] [phone] Norberto West MD Status post lumbar spinal fusion (Primary Dx) 04/18/2025 Travel 04/12/2025 Telephone [place] [facility] [address], [address] [place] [address] Norberto West MD from Last 3 Months Immunizations Immunization Administration Dates Next Due Influenza, injectable, quadrivalent 09/22/2017 Influenza, injectable, quadrivalent, preservativ e free 08/11/2021,09/29/2020 Influenza, seasonal, injectable, preservative fr ee 08/15/2018 TD (adult), 2 Lf tetanus tox oid, preservative free, adsorbed 12/29/1996 Family History Medical History Relation Name Comments Lupus Father's Sister Crohn's disease Maternal Grandmother Arthritis Mother SOL Cancer Mother SOL Depression Mother SOL Diabetes Mother SOL Hypertension Mother SOL Rheumatologic disease Mother SOL Fibromyalgia Mother's Sister Collagen disease Other 1 Daughter Shweta Depression Other 1 Daughter Shweta Diabetes Other 2 Fibromyalgia Other 3 Hypertension Other 4 Rheum arthritis Other 5 Asthma Son Silvestre Campbell Hyperthermia Neg Hx Relation Name Status Comments Father's Sister Maternal Grandmother Mother SOL Alive Mother's Sister Other 1 Daughter Shweta [...] Description 08/07/2025 12:40 PM EDT Office Visit [facility]opa[facility] Surgery & Sports Medicine [address], [address] [place] [address] Norberto West MD [address] [place] [address] Health Maintenance Due Date Last [...] 2023 [facility]-Zoster Vaccines (1 of 2) 2023 [id number] Vaccine (1 - 2023- season) 2024 [facility]-Influenza [...] this topic Medical Devices Implanted Type Area Purchase Request Editor Device Identifier Shelf Expiration Date Model / Serial / Lot Tlif-C Ui 12mm 8deg 28/10 - [id number] Implanted:Qty : 1 on 11/08/2024 by Norberto West MD at [facility] Cage N/A: Spine Lumbar DePuy Spine Sales [id number] 03/23/2028 [id number] / / Lowell Viper2 Lordotic 45mm - [id number] Implanted:Qty : 2 on 11/08/2024 by Norberto West MD at [facility] Lowell N/A: Spine Lumbar DePuy Spine Sales [id number] 11/08/2025 [id number] / / Single Inner Setscrew - [id number] Implanted:Qty : 4 on 11/08/2024 by Norberto West MD at [facility] Screw N/A: Spine Lumbar DePuy Spine [employer] [id number] 11/08/2025 [id number] / / Screw 7.0mm Viper Cfx Fen Xtab 50mm - [id number] Implanted:Qty : 4 on 11/08/2024 by Norberto West MD at [facility] Screw N/A: Spine Lumbar DePuy Spine Sales [id number] 11/08/2025 [id number] / / Tissue Vivigen Formable 5.4cc Med Pk/4 - [id number] - [id number] Implanted:Qty : 1 on 11/08/2024 by Norberto West MD at [facility] Spine Lumbar [id number] 10/04/2025 [id number] / [id number] / [id number] Procedures Procedure Name Priority Date/Time Associated Diagnosis Comments XR LUMBAR SPINE 4 VIEWS TO INCLUDE FLEXION EXTENSION Routine 04/24/2025 10:01 AM EDT Status post lumbar spinal fusion from [...] Result from Last 3 Months Insurance AETNA [facility] MEDICAID Advance Directives * Full Code (Latest Code Status on File) Date Activated Date Inactivated Comments 11/08/2024 11:18 AM 11/09/2024 4:20 PM Question Answer Comments Patient has decision-making capacity? Yes Care Teams School Counselor Relationship Specialty Start Date End Date Janet Chapman PA [address] [place] [address] PCP - General 06/23/21 Clarence Rubin MD [address] [place] [address] Surgeon Neurosurgery 06/23/21 Frankie Dalton MD [address] [place] [address] Surgeon Neurosurgery 10/13/21 Frankie Dalton MD [address] [place] [address] Surgeon Neurosurgery 12/15/21 Celi Murrell PA [address] [place] [address] Physician Farm Implement Engine Mechanic Neurosurgery 04/01/22 Norberto West MD [address] [place] [address] Surgeon Neurosurgery 10/29/24
[2025-05-23 19:43] VITALS: BP 152/80; PULSE 88; RESP 16; TEMP 36.8; O2SAT 98; BMI 36.5
[2025-05-23 19:50] VITALS: BP 146/83; PULSE 84; RESP 18; O2SAT 98
--- NOTE | 2025-05-23 19:55 | ED_ITS ---
<Statement entered by Mansi Garcia DO - 05/24/25 00:09> I was consulted by the KRISSY, and we discussed the complexity of the problems being addressed. I approved the treatment and management plan for this patient's care in the emergency department, thus performing a substantive portion of the medical decision making. Mansi Garcia DO Discharge Plan Disposition Patient Disposition: Home, Self-Care Condition: Good Prescriptions Prescriptions: No Action cholecalciferol (vitamin D3) 50 mcg (2,000 unit) capsule 50 mcg PO DIRECTED lidocaine 5 % adhesive patch,medicated 1 patch topical DAILY Qty: 15 0RF Rx Instructions: leave on most painful area for up to 12 hrs oxybutynin chloride 10 mg tablet extended release 24hr 10 mg PO DAILY Qty: 90 0RF estradiol [Estrace] 0.01 % (0.1 mg/gram) cream 1 appful vaginal DAILY Qty: 42.5 2RF Rx Instructions: Using finger technique daily for 14 days and then 3 times a week thereafter. benzonatate 100 mg capsule 100 mg PO TID PRN (Reason: cough) Qty: 30 0RF cyclobenzaprine 5 mg tablet 5 mg PO TID PRN (Reason: muscle spasm) Qty: 20 0RF lisinopril 10 mg tablet See Rx Instructions .ROUTE .COMPLEX Qty: 30 0RF Dose Instruction: TAKE 1 TABLET BY MOUTH ONCE DAILY FOR BLOOD PRESSURE Rx Instructions: TAKE 1 TABLET BY MOUTH ONCE DAILY FOR BLOOD PRESSURE atorvastatin 20 mg tablet 20 mg PO HS escitalopram oxalate 20 mg tablet 20 mg PO DAILY Rexulti 1 mg tablet 1 mg PO DAILY albuterol sulfate 90 mcg/actuation HFA aerosol inhaler 2 inh inhalation Q6H PRN (Reason: shortness of breath or wheezing) Qty: 6.7 0RF Ozempic 0.25 mg or 0.5 mg (2 mg/3 mL) pen injector 0.25 mg SQ WEEKLY Referrals Follow up/Referrals: Janet Chapman PA [Primary Care Provider, Medical] - See instructions Clinical Impressions Clinical Impression: Fall, Abrasion, Left leg pain Print Language Print Language: Angolan Discharge ED Provider: Mansi Garcia General Adult HPI General Chief complaint: Extremity Injury, Lower Stated complaint: AO 05/23/25 1530 Injury left leg Time Seen by Provider: 05/23/25 19:43 Mode of Arrival: Ambulatory Source of Information: Patient Description of Symptoms (Recalled from ER Triage Doc. 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 Pt states her left leg went under her, when she went to stand she fell again. Pt has a hx of recent fusion of L4-L5 back in Oct and is complaining of left leg, hip pain and weakness. History of Present Illness HPI narrative: 49-year-old female to the emergency department with left knee pain, left leg and hip pain after injury today. Patient states she was at the gas station, when she slipped and fell on some gas and water , that was on the ground, when she attempted to stand up she states she fell again , she denies striking the head, denies any LOC, denies any back pain, denies any other upper or lower extremity injury, states she is felt that her legs been weak , and giving out on her after the injury today around 3:30 PM. Patient denies any fever chills chest pain shortness of breath lightheadedness, no dizziness, no presyncopal or syncopal event, no numbness or tingling, no radicular type symptomatology, no neck pain midthoracic back pain or lower back pain, no urinary type symptomatology, no nausea no vomiting no abdominal pain, no constipation or diarrhea. Patient is a former smoker, denies any drug use, admits to occasional alcohol use, other past medical history is consistent with history of recent L4- L5 lumbar spine fusion degenerative 2024, first her back pain and symptomatology from lumbar spine fusion, this is improved, she has been undergoing physical therapy, OAB, chronic fatigue syndrome, degenerative disc disease of the spine, osteoarthritis, IBS, T2DM, fibromyalgia, hyperlipidemia, hypertension, vitamin D deficiency, MDD, MAHESH. Onset (ago): hour(s) Related Data Home Medications ?Medication ?Instructions ?Recorded ?Confirmed atorvastatin 20 mg tablet 20 mg PO HS 06/16/24 5 brexpiprazole 1 mg tablet (Rexulti) 1 mg PO DAILY 05/2505/08/25 escitalopram oxalate 20 mg tablet 20 mg PO DAILY 06/1605/08/25 semaglutide 0.25 mg or 0.5 mg (2 0.25 mg SQ WEEKLY 05/08/25 mg/3 mL) subcutaneous pen injector (Ozempic) cholecalciferol (vitamin D3) 50 50 mcg PO DIRECTED SUPPLIMENT 01/21/25 05/08/25 mcg (2,000 unit) capsule Previous Rx's ?Medication ?Instructions ?Recorded albuterol sulfate 90 mcg/actuation 2 inh inhalation Q6 H PRN shortness 06/16/24 aerosol inhaler of breath or wheezing #6.7 g rocío lidocaine 5 % topical patch 1 patch topical DAILY #15 ea 01/21/25 lisinopril 10 mg tablet See Rx Instructions .Route 0 02/01/25 .COMPLEX #30 tabs estradiol 0.01% (0.1 mg/gram) 1 appful vaginal DAILY # 42.5 grams 02/25/25 vaginal cream (Estrace) oxybutynin chloride 10 mg 10 mg PO DAILY #90 tabs 03/17 tablet,extended release 24 hr benzonatate 100 mg capsule 100 mg PO TID PRN cough #30 caps 03/03/25 cyclobenzaprine 5 mg tablet 5 mg PO TID PRN muscle spa sm #20 03/18/25 tabs Allergies Allergy/AdvReac Type Severity Reaction Status Date / Time morphine Allergy Abdominal Verified 05/08/25 11:08 Pain cariprazine (From Vraylar) AdvReac Intermediate tics Verified 05/08/25 11:08 Opioids - Morphine Analogues AdvReac Intermediate Vomiting Verified 05/08/25 11:08 acetaminophen (From Lortab) AdvReac Mild Vomiting Verified 05/08/25 11:08 hydrocodone (From Lortab) AdvReac Unknown Verified 05/08/25 11:08 allergy reaction metformin AdvReac Vomiting Verified 05/08/25 11:08 PFSH PFS Disclaimer: The information contained in this section may have been updated after the patient was seen, as this information can be updated by other users. Medical History Sinusitis Nasal congestion Piriformis syndrome Back pain Left otitis media Viral respiratory illness Otitis media H. pylori infection Diarrhea Myalgia Chills Fever IBS (irritable bowel syndrome) Asthma Mouth ulcer Neuroforaminal stenosis of lumbar spine Herniation of lumbar intervertebral disc with radiculopathy Radicular pain of both lower extremities Lumbar canal stenosis Diabetes Neuropathy Low back pain History of rheumatic fever Urinary incontinence Hyperlipidemia Fibromyalgia Hypertension Perioral dermatitis Vitamin D deficiency (~08/19/18) Hand pain, left Depression Surgical History History of lumbar fusion History of section History of hand surgery CMC joint bilateral History of hysterectomy partial H/O lumbar discectomy Family History Other Diabetes FHx: mental illness Family history of cancer Hyperlipidemia Hypertension Social History Smoking Status: Former smoker tobacco type: cigarettes packs per day: 1 second hand exposure: Yes alcohol intake: current alcohol intake frequency: holidays/special occasions only substance use type: denies use current occupational status: unemployed Travel in the last 8 weeks?: None household members: spouse housing: house current occupational exposures/hazards: No caffeine: Yes Have you lived/traveled outside US in past 30 days?: No Contact w/someone who lives/traveled outside US past 30 days?: No Exposure to someone with infectious disease in past 14 days?: No Do you have a fever (greater than 100.4 F or 38 C)?: No Have you tested positive for COVID-19?: No Exposed to someone with COVID-19 in past 14 days?: No Do you have a sore throat?: No Do you have a cough?: No Do you have any weakness?: No Do you have any diarrhea?: No Are you experiencing any unusual bleeding?: No Do you have any muscle aches/pain?: No Do you have any abdominal pain?: No Are you experiencing loss of taste or smell?: No Other Medical History Have you received the Flu Vaccine for this season: Yes Have you received the Pneumonia Vaccine: No ROS Obtained: Yes All systems reviewed & no additional complaints except as documented Physical Exam General General appearance: alert and in no apparent distress Head Head exam: atraumatic and normocephalic Eye Eye exam: Present PERRL and EOMI ENT ENT exam: Present mucous membranes moist Neck Neck exam: Present normal inspection Chest Chest inspection: Present normal inspection and symmetric chest wall rise Respiratory Respiratory exam: Present normal lung sounds bilaterally; Absent respiratory distress Cardiovascular Cardiovascular exam: Present regular rate and normal rhythm Abdominal Exam Abdominal exam: Present soft; Absent tenderness Extremities Exam Extremities exam: Present normal inspection, tenderness and other (Mild pain to palpation to the anterior knee joint, some pain limited range of motion, as well as anterior femur, and lateral intertrochanteric region of the hip, however patient moves extremities to command, no gross sensation deficit, otherwise neurovascular intact.); Absent full ROM Back Exam Back exam: Present normal inspection and full ROM; Absent tenderness or paraspinal tenderness Neurological Exam Neurological exam: Present alert and oriented X3 Psychiatric Psychiatric exam: Present normal affect Skin Skin exam: Present warm, dry and other (Abrasion over the anterior knee, otherwise no erythema, no other wounds lacerations or abrasions) Medical Decision Making Medical Records Medical records reviewed: Yes I reviewed the patient's medical records. Screening: Per USPSTF and CDC recommendations, given the prevalence of disease in our region, it is our hospital?s policy to screen for HIV and viral Hepatitis for all patients aged 18 and over and those with ongoing risk factors. Wali Inquiry Pt receiving controlled substance: No Wali was queried for this patient: No Vital Signs: 05/23/25 19:43 05/23/25 19:50 Temperature 98.3 F Temperature Source Oral Pulse Rate 84 Pulse Rate [Left] 88 Respiratory Rate 16 18 Blood Pressure 146/83 H Blood Pressure [Right Arm] 152/80 H Blood Pressure Mean [Right Arm] 104 Blood Pressure Source Automatic Cuff Blood Pressure Source [Right Arm] Automatic Cuff Blood Pressure Position Sitting Blood Pressure Position [Right Arm] Sitting 02 Sat by Pulse Oximetry 98 98 Oxygen Delivery Method Room Air Room Air Orders (Tests/Meds): ED MEDICATIONS Discontinued Medications Generic Name Dose Route Start Last Admin Trade Name Sugar PRN Reason Stop Dose Admin Ibuprofen 600 mg 05/23/25 20:02 05/23/25 20:11 Ibuprofen 600 Mg Tablet PO 05/23/25 20:03 600 mg ONCE ONE Administration ORDERS Category Date Time Status XR femur LT 2V Stat Exams 05/23/25 20:01 Completed XR hip LT 2-3V w/pelvis Stat Exams 05/23/25 20:01 Completed XR knee LT 3V Stat Exams 05/23/25 20:01 Completed Medical Decision Narrative: 49-year-old female presents to the emergency department after a fall, with left knee pain and left leg pain and left hip pain, differential diagnosis include but not limited to, left hip fracture, left hip sprain/strain, leg sprain/strain, knee fracture, knee sprain/strain, abrasion, other soft tissue injury among others. I discussed this patient's case with the attending physician Dr. Garcia Will obtain left femur x-ray, left hip and pelvic x-ray and left knee x-ray for further evaluation/characterization, will give 600 mg p.o. ibuprofen. I reviewed the patient's left knee x-ray, left hip x-ray, left femur x-ray along the corresponding radiologic reports, no acute finding I discussed the results with the patient and with the bedside patient family agree with current treatment plan/discharge plan, patient need to follow-up with PCP and orthopedic doctor in the upcoming days/weeks, return to emergency with any worsening signs or symptoms, recommend rest ice compression elevation, generalized fall precautions. Patient has no radicular pain no back pain, no numbness tingling or upper or lower extremity weakness, that would necessitate workup for lumbar pathology. I discussed need for potential lumbar pathology workup/offered to the patient family bedside, patient family in agreement with current treatment plan/discharge plan, Andrew to pursue follow-up with her spine surgeon, I think this is reasonable, shared decision making utilized patient has no back pain or other red flag signs or symptoms from her previous L4-L5 PLIF. Patient was given strict ED return precautions. Critical Care Critical Care Time Critical Care Time: No
[2025-05-23 20:00] VITALS: BP 146/83; PULSE 90; RESP 16; O2SAT 98
--- NOTE | 2025-05-23 20:01 | XR_ITS ---
PROCEDURE INFORMATION: Exam: XR Left Knee Exam date and time: 05/23/2025 8:13 PM Age: 49 years old Clinical indication: Injury or trauma; Fall; Other: Pain; Additional info: Left knee pain/injury after fall TECHNIQUE: Imaging protocol: Radiologic exam of the left knee. Views: 3 views. COMPARISON: CR XR FEMUR LT 2V 05/23/2025 8:11 PM FINDINGS: Bones/joints: Normal. Soft tissues: Normal. IMPRESSION: No acute findings.
--- NOTE | 2025-05-23 20:01 | XR_ITS ---
PROCEDURE INFORMATION: Exam: XR Left Hip Exam date and time: 05/23/2025 8:10 PM Age: 49 years old Clinical indication: Injury or trauma; Fall; Other: Pain; Additional info: Left hip pain after fall TECHNIQUE: Imaging protocol: Radiologic exam of the left hip. Views: 2 or 3 views hip with pelvis when performed. COMPARISON: CT ABDOMEN PELVIS WO CON 02/19/2025 7:11 AM FINDINGS: Bones/joints: Unremarkable. No acute fracture. Spine fixation hardware with interposition graft L5-S1. Soft tissues: Unremarkable. IMPRESSION: No acute findings.
--- NOTE | 2025-05-23 20:01 | XR_ITS ---
PROCEDURE INFORMATION: Exam: XR Left Femur Exam date and time: 05/23/2025 8:11 PM Age: 49 years old Clinical indication: Injury or trauma; Fall; Other: Pain; Additional info: Leg pain after fall TECHNIQUE: Imaging protocol: Radiologic exam of the left femur. Views: 2 views. COMPARISON: CR XR FEMUR LT 2V 05/23/2025 8:11 PM FINDINGS: Bones/joints: Unremarkable. No acute fracture. Soft tissues: Unremarkable. IMPRESSION: No acute findings.
[2025-05-23] MEDS: IBUPROFEN 600 MG TABLET PO (20:11)
[2025-05-23 21:00] VITALS: BP 129/74; PULSE 95; RESP 16; TEMP 36.4; O2SAT 96
[2025-05-23 21:25] VITALS: BP 129/74; PULSE 95; RESP 16; TEMP 36.4; O2SAT 96
== END 2025-05-23 21:25 | disposition home or self-care (01) ==
PROVIDERS: Emergency Provider Emergency Medicine; PCP Physician Assistant
DX: S80.212A Abrasion, left knee, initial encounter (principal); M79.605 Pain in left leg; W19.XXXA Unspecified fall, initial encounter
CPT/HCPCS: 73502; 73552; 73562; 99284

== ENCOUNTER 2025-05-27 07:22 | Outpatient (CLI) | payer OTHER, SELFPAY ==
--- OUTSIDE RECORDS SUMMARY | 2025-04-24 09:44 | XMS_ITS | Encounter Summary ---
Author Organization [facility] Address [address] [place] [address] Care Team Providers Care Radio Control Crane Operator Name Role Phone Janet Chapman Primary Care Provider [phone] Clarence Rubin MD Unavailable Frankie Dalton MD Unavailable [phone] Frankie Dalton MD Unavailable [phone] Celi Murrell Unavailable [phone] Norberto West MD Unavailable [phone] Encounter Details Date Type Department Care Team (Latest Contact Info) Description 04/24/2025 9:44 AM EDT - 04/24/2025 11:59 PM EDT Hospital Encounter [place] [facility] [address] [place] [address] Status post lumbar spinal fusion Discharge Disposition: [...] day as needed. 04/22/2025 ergocalciferol 1.25 MG (54861 UT) capsule Takes on Sundays02/23/2024 escitalopram (Lexapro) [...] Description 08/07/2025 12:40 PM EDT Office Visit [facility] Orthopaedic Surgery & Sports Medicine [address] [place] [address] Norberto West MD [address] [place] [address] documented as of this encounter [...] documented as of this encounter Care Teams Radio Control Crane Operator Relationship Specialty Start Date End Date Janet Chapman PA [address] [place] [address] PCP - General 06/23/21 Clarence Rubin MD [address] [place] [address] Surgeon Neurosurgery 06/23/21 Frankie Dalton MD [address] [place] [address] Surgeon Neurosurgery 10/13/21 Frankie Dalton MD [address] [place] [address] Surgeon Neurosurgery 12/15/21 Celi Murrell PA [address] [place] [address] Physician Milking Worker Neurosurgery 04/01/22 Norberto West MD [address] [place] [address] Surgeon Neurosurgery 10/29/24 documented as of this encounter
--- OUTSIDE RECORDS SUMMARY | 2025-04-24 13:40 | XMS_ITS | Encounter Summary ---
Author Organization [facility] Address [address] [place] [address] Care Team Providers Care Unix Consultant Name Role Phone Janet Chapman Primary Care Provider [phone] Clarence Rubin MD Unavailable Frankie Dalton MD Unavailable [phone] Frankie Dalton MD Unavailable [phone] Celi Winter Unavailable [phone] Norberto West MD Unavailable [phone] Encounter Details Date Type Department Care Team (Late st Contact Info) Description 04/24/2025 1:40 PM EDT Office Visit [place] [facility] [address] [place] [address] Norberto West MD [address] [place] [address] S/P lumbar fusion (Primary Dx); [...] coordination of care. I spent >50% in atbc-ir-jnvq communication with the patient over the diagnosis, treatment options and plan. Norberto West MD MS Cut Off Saw Operator of Neurosurgery Complex and Minimally Invasive Spine Surgery [address] [place] [address] [place], [address] Addendum 05/23/2025: Physical therapy notes have been [...] Description 08/07/2025 12:40 PM EDT Office Visit [facility] Orthopaedic Surgery & Sports Medicine [address] [place] [address] Norberto West MD [address] [place] [address] documented as of this encounter [...] documented as of this encounter Care Teams Unix Consultant Relationship Specialty Start Date End Date Janet Chapman PA [address] [place] [address] PCP - General 06/23/21 Clarence Rubin MD [address] [place] [address] Surgeon Neurosurgery 06/23/21 Frankie Dalton MD [address] [place] [address] Surgeon Neurosurgery 10/13/21 Frankie Dalton MD [address] [place] [address] Surgeon Neurosurgery 12/15/21 Celi Winter PA [address] [place] [address] Physician Wigs Salesperson Neurosurgery 04/01/22 Norberto West MD [address] [facility] [address] [place] [address] Surgeon Neurosurgery 10/29/24 documented as of this encounter
--- NOTE | 2025-05-27 | MR_ITS ---
FINAL REPORT CLINICAL HISTORY: lumbar sx in october 2024, pain since surgery, getting worse pain radiates down both legs COMPARISON: 12/25/2021 FINDINGS: Multiplanar MR imaging of the lumbar spine was performed without contrast. In the interval since the prior MRI of 2021 the patient has undergone fusion at the L4-5 level. There is mild spondylolisthesis present at this level, seen on the prior MR. On the sagittal T2-weighted images, there is abnormal decreased signal throughout the lumbar discs. The vertebrae are of normal height. L1-2: There is no significant canal stenosis or neural foraminal narrowing. L2-3: A mild annular bulge is present with mild bilateral neural foraminal narrowing. L3-4: A mild annular bulge is present with bilateral facet hypertrophy and mild to moderate bilateral neural foraminal narrowing. L4-5: Endplate hypertrophy is present, with moderate left neural foraminal narrowing. L5-S1: A moderate annular bulge is present with moderate right and severe left neural foraminal narrowing. IMPRESSION: Multilevel lumbar degenerative changes present, most pronounced at the L5-S1 level. Reviewed, Interpreted and Dictated by Tio Silver MD Transcribed by Nahomy Manzo Authenticated and [facility]
--- OUTSIDE RECORDS SUMMARY | 2025-05-27 07:25 | XMS_ITS | Clinical Summary ---
[facility] Address [address] [place] [address] Care Team Providers Care Barrel Assembler Helper Name Role Phone Janet Chapman Primary Care Provider [phone] Allergies No known active allergies Medications escitalopram [...] VACCINE 07/24/2025 08/15/2018, 08/15/2018 Insurance PABLO RENTERIA [id number] [facility] Care Teams Barrel Assembler Helper Relationship Specialty Start Date End Date Janet Chapman PA PCP - General Physician Marketing Project Specialist 07/14/21
--- OUTSIDE RECORDS SUMMARY | 2025-05-27 07:25 | XMS_ITS | Encounter Summary ---
Author Organization [facility] Address [address] [place] [address] Care Team Providers Care Jackhammer Operator Name Role Phone Janet Chapman Primary Care Provider [phone] Clarence Rubin MD Unavailable Frankie Dalton MD Unavailable [phone] Frankie Dalton MD Unavailable [phone] Celi Murrell Unavailable [phone] Norberto West MD Unavailable [phone] Encounter Details Date Type Department Care [...] Description 08/07/2025 12:40 PM EDT Office Visit [facility] [address], [address] [place] [address] Norberto West MD [address] [place] [address] documented as of this encounter Visit Diagnoses Not on filedocumented in this encounter Additional Health Concerns Assessment Noted Time A fall risk assessment has been complete d for the patient 04/24/2025 2:23 PM EDT A Body Mass Index follow-up plan has been documented for the patient 04/24/2025 3:24 PM EDT documented as of this encounter Care Teams Jackhammer Operator Relationship Specialty Start Date End Date Janet Chapman PA [address] [place] [address] PCP - General 06/23/21 Clarence Rubin MD [address] [place] [address] Surgeon Neurosurgery 06/23/21 Frankie Dalton MD [address] [place] [address] Surgeon Neurosurgery 10/13/21 Frankie Dalton MD [address] [place] [address] Surgeon Neurosurgery 12/15/21 Celi Murrell PA [address] [place] [address] Physician Patient Financial Services Coordinator Neurosurgery 04/01/22 Norberto West MD [address] [place] [address] Surgeon Neurosurgery 10/29/24 documented as of this encounter
--- OUTSIDE RECORDS SUMMARY | 2025-05-27 07:25 | XMS_ITS | Encounter Summary ---
Author Organization [facility] Address [address] [place] [address] Care Team Providers Care Day Care Teacher Name Role Phone Janet Chapman Primary Care Provider [phone] Clarence Rubin MD Unavailable Frankie Dalton MD Unavailable [phone] Frankie Dalton MD Unavailable [phone] Celi Murrell Unavailable [phone] Norberto West MD Unavailable [phone] Encounter Details Date Type Department Care Team (Late st Contact Info) Description 03/17/2021 [facility] [address], [address] [place] [address] Des Da Silva MD [address] [place] [address] Lumbar radiculopathy (Primary Dx) Social [...] 08/07/2025 12:40 PM EDT Office Visit [facility] Orthopaedic Surgery & Sports Medicine [address], [address] [place] [address] Norberto West MD [address] [place] [address] documented as of this encounter Visit Diagnoses Diagnosis Lumbar radiculopathy- Primary Thoracic or lumbosacral neuritis or radiculitis, unspecified documented in this encounter Care Teams Day Care Teacher Relationship Specialty Start Date End Date Janet Chapman PA [address] [place] [address] PCP - General 06/23/21 Clarence Rubin MD [address] [place] [address] Surgeon Neurosurgery 06/23/21 Frankei Dalton MD [address] [place] [address] Surgeon Neurosurgery 10/13/21 Frankie Dalton MD [address] [place] [address] Surgeon Neurosurgery 12/15/21 Celi Murrell PA [address] [place] [address] Physician Well Services Operator Neurosurgery 04/01/22 Norberto West MD [address] [place] [address] Surgeon Neurosurgery 10/29/24 documented as of this encounter
--- OUTSIDE RECORDS SUMMARY | 2025-05-27 07:25 | XMS_ITS | Encounter Summary ---
Author Organization [facility] Address [address] [place] [address] Care Team Providers Care Public Relations Studies Director Name Role Phone Janet Chapman Primary Care Provider [phone] Clarence Rubin MD Unavailable Frankie Dalton MD Unavailable [phone] Frankie Dalton MD Unavailable [phone] Celi Murrell Unavailable [phone] Norberto West MD Unavailable [phone] Encounter Details Date Type Department Care Team (Late st Contact Info) Description 04/12/2025 Telephone [facility] [address], 1st [place] [address] Norberto West MD [address] [place] [address] Social History Tobacco Use Types [...] optimal time of day to reach caller: [phone] Note: Please do not reply to this message. Follow-up communication and further actions as a result of this message need to be communicated with the patient directly, if the patient is not active onMyChart. If the patient is active on MyChart, they will receive notification of the communication/outcome via QuickGiftshart. documented in this encounter Plan of Treatment Upcoming Encounters Date Type Department Care Team (Late st Contact Info) Description 08/07/2025 12:40 PM EDT Office Visit [facility] Orthopaedic Surgery & Sports Medicine [address], 1st Floor [address] [place] [address] Norberto West MD [id number] [place] [address] documented as of this encounter Visit Diagnoses Not on filedocumented in this encounter Additional Health Concerns Assessment Noted Time A fall risk assessment has been complete d for the patient 02/06/2025 3:12 PM EDT A Body Mass Index follow-up plan has been documented for the patient 02/06/2025 6:10 PM EDT documented as of this encounter Care Teams Public Relations Studies Director Relationship Specialty Start Date End Date Janet Chapman PA [address] [place] [address] PCP - General 06/23/21 Clarence Rubin MD [id number] [place] [address] Surgeon Neurosurgery 06/23/21 Frankie Dalton MD [address] [place] [address] Surgeon Neurosurgery 10/13/21 Frankie Datlon MD [address] [place] [address] Surgeon Neurosurgery 12/15/21 Celi Murrell PA [address] [place] [address] Physician Screen Printing Stencil Preparer Neurosurgery 04/01/22 Norberto West MD [address] [place] [address] Surgeon Neurosurgery 10/29/24 documented as of this encounter
--- OUTSIDE RECORDS SUMMARY | 2025-05-27 07:25 | XMS_ITS | Clinical Summary ---
Author Organization [facility] Address [address] [place] [address] Care Team Providers Care Car Sales Associate Name Role Phone Janet Chapman Primary Care Provider [phone] Clarence Rubin MD Unavailable Frankie Dalton MD Unavailable [phone] Frankie Dalton MD Unavailable [phone] Celi Murrell Unavailable [phone] Norberto West MD Unavailable [phone] Allergies Active Allergy Reactions Criticality Noted [...] (1 mg). 4 Active ergocalciferol 1.25 MG (71422 UT) capsule Takes on Sundays 4 Active [...] Encounters Date Type Department Care Team Description 05/24/2025 Telephone [facility] [address], [address] [place] [phone] Norberto West MD HCN - Patient Message 05/23/2025 Orders Only [facility] [address], [address] [place] [phone] Celi Murrell PA Status post lumbar spinal fusion (Primary Dx); Low back pain, unspecified back pain laterality, unspecified chronicity, unspecified whether sciatica present; Bilateral lower extremity pain; Lumbar radiculopathy; Lumbar spondylosis 04/24/2025 1:40 PM EDT Office Visit [facility] Orthopaedic Surgery & Sports Medicine [address], 1st [facility] [address] [place] [address] Norberto West MD S/P lumbar fusion (Primary Dx); Sacroiliac joint pain 04/24/2025 9:44 AM EDT - 04/24/2025 11:59 PM EDT Hospital Encounter [facility] [address], [address] [place] [phone] Status post lumbar spinal fusion Discharge Disposition: Home or Self Care 04/24/2025 Travel 04/23/2025 Orders Only [facility] [address], [address]st [place] [address] Norberto West MD Status post lumbar spinal fusion (Primary Dx) 04/18/2025 Travel 04/12/2025 Telephone [facility] [address], 1st [place] [address] Norberto West MD from Last [...] SOL Hypertension Mother SOL Rheumatologic disease Mother SWETA Fibromyalgia Mother's Sister Collagen disease Other 1 Daughter Shweta Depression Other 1 Daughter Shweta Diabetes Other 2 Fibromyalgia Other 3 Hypertension Other 4 Rheum arthritis Other 5 Asthma Son Silvestre Barr Maltl Hyperthermia Neg Hx Relation Name Status Comments [...] 12:40 PM EDT Office Visit [facility] Orthopaedic Surgery & Sports Medicine [address], [address] [place] [address] Norberto West MD [address] [place] [address] Health Maintenance Due Date Last [...] 2023 [facility]-Zoster Vaccines (1 of 2) 2023 [id number] Vaccine ( - 2023- season) 2024 [facility]-Influenza Vaccine (#1) [...] this topic Medical Devices Implanted Type Area Craft Center Director Device Identifier Shelf Expiration Date Model / Serial / Lot Tlif-C Ui 12mm 8deg 28/10 - [id number] Implanted:Qty : 1 on 11/08/2024 by Norberto West MD at [facility] Cage N/A: Spine Lumbar DePuy Spine Sales [id number] 03/23/2028 [id number] / / Lowell Viper2 Lordotic 45mm - [id number] Implanted:Qty : 2 on 11/08/2024 by Norberto West MD at [facility] Lowell N/A: Spine Lumbar DePuy Spine Sales [id number] 11/08/2025 [id number] / / Single Inner Setscrew - [id number] Implanted:Qty : 4 on 11/08/2024 by Norberto West MD at [facility] Screw N/A: Spine Lumbar DePuy Spine Sales [id number] 11/08/2025 [id number] / / Screw 7.0mm Viper Cfx Fen Xtab 50mm - [id number] Implanted:Qty : 4 on 11/08/2024 by Norberto West MD at [facility] Screw N/A: Spine Lumbar DePuy Spine Sales [id number] 11/08/2025 [id number] / / Tissue Vivigen Formable 5.4cc Med Pk/4 - [id number] - [id number] Implanted:Qty : 1 on 11/08/2024 by Norberto West MD at [facility] Spine Lumbar [id number] 10/04/2025 [id number] / [id number] / [id number] Procedures Procedure Name Priority Date/Time Associated Diagnosis [...] Result from Last 3 Months Insurance [employer] [facility] MEDICAID Advance Directives * Full Code (Latest Code Status on File) Date Activated Date Inactivated Comments 11/08/2024 11:18 AM 11/09/2024 4:20 PM Question Answer Comments Patient has decision-making capacity? Yes Care Teams Car Sales Associate Relationship Specialty Start Date End Date Janet Chapman PA [address] [place] [address] PCP - General 06/23/21 Clarence Rubin MD [address] [place] [address] Surgeon Neurosurgery 06/23/21 Frankie Dalton MD [address] [place] [address] Surgeon Neurosurgery 10/13/21 Frankie Dalton MD [address] [place] [address] Surgeon Neurosurgery 12/15/21 Celi Murrell PA [address] [place] [address] Physician Neck Band Setter Neurosurgery 04/01/22 Norberto West MD [address] [place] [address] Surgeon Neurosurgery 10/29/24
--- OUTSIDE RECORDS SUMMARY | 2025-05-27 07:25 | XMS_ITS | Encounter Summary ---
Author Organization [facility] Address [address] [place] [address] Care Team Providers Care Manager Of Business Operations Name Role Phone Janet Chapman Primary Care Provider [phone] Clarence Rubin MD Unavailable Frankie Dalton MD Unavailable [phone] Frankie Dalton MD Unavailable [phone] Celi Murrell Unavailable [phone] Norberto West MD Unavailable [phone] Encounter Details Date Type Department Care Team (Late st Contact Info) Description 12/25/2021 Orders Only External Location [address] [place] [address] Celi Murrell PA [address] [facility] [address] [place] [address] Social History Tobacco Use Types Packs/Day Years [...] 12:40 PM EDT Office Visit [facility] Orthopaedic Surgery & Sports Medicine [address], 1st Floor [address] [place] [address] Norberto West MD [address] [place] [address] documented as of this [...] documented as of this encounter Care Teams Manager Of Business Operations Relationship Specialty Start Date End Date Janet Chapman PA [address] [place] [address] PCP - General 06/23/21 Clarence Rubin MD [address] [place] [address] Surgeon Neurosurgery 06/23/21 Frankie Dalton MD [address] [place] [address] Surgeon Neurosurgery 10/13/21 Frankie Dalton MD [address] [place] [address] Surgeon Neurosurgery 12/15/21 Celi Murrell PA [address] [place] [address] Physician Boat Dock Operator Neurosurgery 04/01/22 Norberto West MD [address] [place] [address] Surgeon Neurosurgery 10/29/24 documented as of this encounter
--- OUTSIDE RECORDS SUMMARY | 2025-05-27 07:25 | XMS_ITS | Encounter Summary ---
Author Organization [facility] Address [address] [place] [address] Care Team Providers Care Almond Pan Finisher Name Role Phone Janet Chapman Primary Care Provider [phone] Clarence Rubin MD Unavailable Frankie Dalton MD Unavailable [phone] Frankie Dalton MD Unavailable [phone] Celi Murrell Unavailable [phone] Norberto West MD Unavailable [phone] Encounter Details Date Type Department Care [...] Description 08/07/2025 12:40 PM EDT Office Visit [facility] Orthopaedic Surgery & Sports Medicine [address], 1st [address] [place] [address] Norberto West MD [address] [place] [address] documented as of this encounter Visit Diagnoses Not on filedocumented in this encounter Additional Health Concerns Assessment Noted Time A fall risk assessment has been complete d for the patient 02/06/2025 3:12 PM EDT A Body Mass Index follow-up plan has been documented for the patient 02/06/2025 6:10 PM EDT documented as of this encounter Care Teams Almond Pan Finisher Relationship Specialty Start Date End Date Janet Chapman PA [address] [place] [address] PCP - General 06/23/21 Clarence Rubin MD [address] [place] [address] Surgeon Neurosurgery 06/23/21 Frankie Dalton MD [address] [place] [address] Surgeon Neurosurgery 10/13/21 Frankie Dalton MD [address] [place] [address] Surgeon Neurosurgery 12/15/21 Celi Murrell PA [address] [place] [address] Physician Adjunct Physical Education Instructor Neurosurgery 04/01/22 Norberto West MD [address] [place] [address] Surgeon Neurosurgery 10/29/24 documented as of this encounter
--- OUTSIDE RECORDS SUMMARY | 2025-05-27 07:25 | XMS_ITS | Encounter Summary ---
Author Organization [facility] Address [address] [place] [address] Care Team Providers Care Production Grader Name Role Phone Janet Chapman Primary Care Provider [phone] Clarence Rubin MD Unavailable Frankie Dalton MD Unavailable [phone] Frankie Dalton MD Unavailable [phone] Celi Murrell Unavailable [phone] Norberto West MD Unavailable [phone] Reason for Referral * Imaging (Urgent) - Authorized Specialty Diagnoses / Procedures Referred By Contac t Referred To Contact Diagnoses Status post lumbar spinal fusion Low back pain, unspecified back pain laterality, unspecified chronicity, unspecified whether sciatica present Bilateral lower extremity pain Lumbar radiculopathy Lumbar spondylosis Procedures MR Lumbar Spine wo IV Contrast Celi Murrell PA [address] [place] [address] Phone: tel: fax: Referral ID Status Reason Start Date Expiration Date V isits Requested Visits Authorized [id number] Authorized 05/23/2025 11/22/2026 1 1 Encounter Details Date Type Department Care Team (Late st Contact Info) Description 05/23/[address] [facility] [address], 1st [place] [address] Celi Murrell PA [id number] [place] [address] Status post lumbar spinal fusion [...] 08/07/2025 12:40 PM EDT Office Visit [facility] Orthopaedic Surgery & Sports Medicine [address], 1st [address] [place] [address] Norberto West MD [address] [address] Scheduled Orders Name Type Priority [...] documented as of this encounter Care Teams Production Grader Relationship Specialty Start Date End Date Janet Chapman PA [address] [facility] [place] [address] PCP - General 06/23/21 Clarence Rubni MD [address] [place] [address] Surgeon Neurosurgery 06/23/21 Frankie Dalton MD [address] [place] [address] Surgeon Neurosurgery 10/13/21 Frankie Dalton MD [address] [place] [address] Surgeon Neurosurgery 12/15/21 Celi Murrell PA [address] [place] [address] Physician Mortgage Operations Manager Neurosurgery 04/01/22 Norberto West MD [address] [place] [address] Surgeon Neurosurgery 10/29/24 documented as of this encounter
--- OUTSIDE RECORDS SUMMARY | 2025-05-27 07:25 | XMS_ITS | Encounter Summary ---
Author Organization [facility] Address [address] [place] [address] Care Team Providers Care Network Control Operator Name Role Phone Janet Chapman Primary Care Provider [phone] Clarence Rubin MD Unavailable Frankie Dalton MD Unavailable Frankie Dalton MD Unavailable [phone] Celi Murrell Unavailable [phone] Norberto West MD Unavailable [phone] Encounter Details Date Type Department Care Team (Late st Contact Info) Description 04/23/2025 Orders Only [place] [facility] [address], 1st [place] [address] Norberto West MD [address] [place] [address] Status post lumbar spinal fusion [...] Description 08/07/2025 12:40 PM EDT Office Visit [facility] Orthopaedic Surgery & Sports Medicine [address], [address] [place] [address] Norberto West MD [address] [place] [address] documented as of this encounter [...] documented as of this encounter Care Teams Network Control Operator Relationship Specialty Start Date End Date Janet Chapman PA [address] [place] [address] PCP - General 06/23/21 Clarence Rubin MD [address] [place] [address] Surgeon Neurosurgery 06/23/21 Frankie Dalton MD [address] [place] [address] Surgeon Neurosurgery 10/13/21 Frankie Dalton MD [address] [place] [address] Surgeon Neurosurgery 12/15/21 Celi Murrell PA [address] [place] [address] Physician Cna Hha Neurosurgery 04/01/22 Norberto West MD [address] [place] [address] Surgeon Neurosurgery 10/29/24 documented as of this encounter
--- OUTSIDE RECORDS SUMMARY | 2025-05-27 07:25 | XMS_ITS | Encounter Summary ---
Author Organization [facility] Address [address] [place] [address] Care Team Providers Care Sugar Reprocess Operator Head Name Role Phone Janet Chapman Primary Care Provider [phone] Clarence Rubin MD Unavailable Frankie Dalton MD Unavailable [phone] Frankie Dalton MD Unavailable [phone] Celi Murrell Unavailable [phone] Norberto West MD Unavailable [phone] Reason for Visit * Reason Onset Date Comments HCN - Patient Message 05/24/2025 Encounter Details Date Type Department Care Team (Late st Contact Info) Description 05/24/2025 Telephone [facility] [address], [address] [place] [address] Norberto West MD [address] [place] [address] HCN - Patient Message Social History Tobacco Use Types Packs/Day Years [...] encounter Miscellaneous Notes * Telephone Encounter - Stephanie Winslow - 05/24/2025 9:57 AM EDT Called pt and let her know that everything was fxd to [facility] this morning and they will contact her to schedule. She verbalized understanding. * Telephone Encounter - Eden Bonilla - 05/24/2025 8:58 AM EDT Patient Phone Message Reason for Call: [facility] told her MRI was to be done at [facility] has no orders at this time Where will MRI be scheduled ? Best contact number and optimal time of day to reach caller: Pt / [phone] Note: Please do not reply to this message. Follow-up communication and further actions as a result of this message need to be communicated with the patient directly, if the patient is not active onMyChart. If the patient is active on MyChart, they will receive notification of the communication/outcome via Zoombut. documented in this encounter Plan of Treatment Upcoming Encounters Date Type Department Care Team (Late st Contact Info) Description 08/07/2025 12:40 PM EDT Office Visit [facility] Orthopaedic Surgery & Sports Medicine [address], [address] [place] [address] Norberto West MD [address] [place] [address] documented as of this encounter Visit Diagnoses Not on filedocumented in this encounter Additional Health Concerns Assessment Noted Time A fall risk assessment has been complete d for the patient 04/24/2025 2:23 PM EDT A Body Mass Index follow-up plan has been documented for the patient 04/24/2025 3:24 PM EDT documented as of this encounter Care Teams Sugar Reprocess Operator Head Relationship Specialty Start Date End Date Janet Chapman PA [address] [place] [address] PCP - General 06/23/21 Clarence Rubin MD [address] [place] [address] Surgeon Neurosurgery 06/23/21 Frankie Dalton MD [address] [place] [address] Surgeon Neurosurgery 10/13/21 Frankie Dalton MD [address] [place] [address] Surgeon Neurosurgery 12/15/21 Celi Murrell PA [address] [place] [address] Physician Railroad Detective Neurosurgery 04/01/22 Norberto West MD [address] [place] [address] Surgeon Neurosurgery 10/29/24 documented as of this encounter
== END 2025-05-27 23:59 | disposition home or self-care (01) ==
LOC: RAD 07:23
PROVIDERS: Visit Provider Physician Assistant Medical
DX: M47.26 Other spondylosis with radiculopathy, lumbar region (principal); M43.17 Spondylolisthesis, lumbosacral region; Z98.1 Arthrodesis status
CPT/HCPCS: 72148

== ENCOUNTER 2025-05-29 11:14 | Outpatient (POV) | payer OTHER, SELFPAY ==
--- OUTSIDE RECORDS SUMMARY | 2025-04-24 09:44 | XMS_ITS | Encounter Summary ---
Author Organization [facility] Address [address] [place] [address] Care Team Providers Care Visual Aid Expert Name Role Phone Janet Chapman Primary Care Provider [phone] Clarence Rubin MD Unavailable Frankie Dalton MD Unavailable [phone] Frankie Dalton MD Unavailable [phone] Celi Murrell Unavailable [phone] Norberto West MD Unavailable [phone] Encounter Details Date Type Department Care Team (Latest Contact Info) Description 04/24/2025 9:44 AM EDT - 04/24/2025 11:59 PM EDT Hospital Encounter [place] [facility] [address] [place] [address] Status post lumbar spinal fusion Discharge Disposition: [...] day as needed. 04/22/2025 ergocalciferol 1.25 MG (40113 UT) capsule Takes on Sundays02/23/2024 escitalopram (Lexapro) [...] Description 08/07/2025 12:40 PM EDT Office Visit [facility] Orthopaedic Surgery & Sports Medicine [address] [place] [address] Norberto West MD [address] [place] [address] documented as of this encounter [...] documented as of this encounter Care Teams Visual Aid Expert Relationship Specialty Start Date End Date Janet Chapman PA [address] [place] [address] PCP - General 06/23/21 Clarence Rubin MD [address] [place] [address] Surgeon Neurosurgery 06/23/21 Frankie Dalton MD [address] [place] [address] Surgeon Neurosurgery 10/13/21 Frankie Dalton MD [address] [place] [address] Surgeon Neurosurgery 12/15/21 Celi Murrell PA [address] [place] [address] Physician Shoe Cobbler Neurosurgery 04/01/22 Norberto West MD [address] [place] [address] Surgeon Neurosurgery 10/29/24 documented as of this encounter
--- OUTSIDE RECORDS SUMMARY | 2025-04-24 13:40 | XMS_ITS | Encounter Summary ---
Author Organization [facility] Address [address] [place] [address] Care Team Providers Care Hair Spring Cutter Name Role Phone Janet Chapman Primary Care Provider [phone] Clarence Rubin MD Unavailable Frankie Dalton MD Unavailable [phone] Frankie Dalton MD Unavailable [phone] Celi Winter Unavailable [phone] Norberto West MD Unavailable [phone] Encounter Details Date Type Department Care Team (Late st Contact Info) Description 04/24/2025 1:40 PM EDT [facility] [address] [place] [address] Norberto West MD [address] [place] [address] S/P lumbar fusion (Primary Dx); Sacroiliac joint pain Social History Tobacco Use Types Packs/Day Years [...] on file documented as of this encounter Last Filed Vital Signs Vital Sign Reading Time Taken Comments Blood Pressure 105/68 04/24/2025 2:23 PM EDT Pulse 91 04/24/2025 2:23 PM EDT Temperature 36.9 C (98.4 F) 04/24/2025 2:23 PM EDT Respiratory Rate - - Oxygen Saturation 97% 04/24/2025 2:23 PM EDT Inhaled Oxygen Concentration - - Weight 102 kg (225 lb) 04/24/2025 2:23 PM EDT Height 172.7 cm (5' 8 ) 04/24/2025 2:23 PM EDT Body Mass Index 34.21 04/24/2025 2:23 PM EDT documented in this encounter Miscellaneous Notes * Progress Notes - Celi Winter PA - 04/24/2025 1:40 PM EDT HPI: Jenny Barr is a 49 y.o. female with history of L4-5 laminectomy in February of 2022. She is now status post L4-5 MIS TLIF on November 08, 2024. She initially did very well from this and was happy with her pain relief, unfortunately she developed new low back pain and pain radiating to the poste rior thighs only in February. She reports this is worse with standing and better with lying down. She denies any weakness or numbness. Her PCP prescribed physical therapy and she has had 1 session so far.She is taking Celebrex which is a long- term medication. She is also taking Flexeril and tramadol which helps her sleep. Review of systems. 14 Point ROS performed. Noncontributory except as indicated above-form completedby patient, reviewed and placed in chart. ? Physical Exam: Awake alert and well-appearing Strength 5/5 Incision well healed No tenderness to palpation over the lumbar spine, or hips Positive tenderness to palpation over the bilateral SI joints Negative straight leg raise, negative RAFA Positive productive maneuvers for SI joint ? Imaging: Lumbar flexion-extension x-rays demonstrate stable appearance of the hardware without instability Assessment: Jenny Barr is 6 months status post L4-5 MIS TLIF. She initially did well from this but now has low back pain and posterior thigh pain. This may be related to SI joint pathology. She is already scheduled for injections with Dr. Buenrostro and has physical therapy scheduled. I will have her pursue these as initial steps for this pain. If injections and PT do not improve her symptoms, she would benefit from a CT and MRI of the lumbar spine. Either way I will have her follow-up in 3 months. ? I personally spent a total of 30 minutes on this encounter. This time includes face to face with patient, counseling and discussion and/or coordination of care. I spent >50% in xfdt-sn-dpub communication with the patient over the diagnosis, treatment options and plan. Norberto West MD MS Dealership General Manager of Neurosurgery Complex and Minimally Invasive Spine Surgery [address] [place] [address] [place], [address] Addendum 05/23/2025: Physical therapy notes have been received and reviewed. The patient has been going to physical therapy 2 times per week for the last 4-6 weeks. Start date was 04/23/2025. The patient has completed 7 physical therapy treatment sessions consisting of aerobic exercise, lumbar mobility, lower extremity strengthening/stretching, core strengthening, ATP and modalities with good tolerance. Patient has only demonstrated only slight objective improvement with lumbar AROM and EVENS scoring. She continues to report severe left-sided low back pain with functional activities and tenderness to palpation at L5-S1. Purse that physical therapy notes, due to continued severity of pain and lack of progress with conservative treatment thus far, it is recommended from physical therapist to proceed with lumbar MRI imaging. Therefore, we will request an MRI of the lumbar spine to further review for neural compression. We will have the patient return to clinic for follow-up once testing iscompleted to discuss results. - Celi Winter PA-C documented in this encounter Plan of Treatment Upcoming Encounters Date Type Department Care Team (Late st Contact Info) Description 08/07/2025 12:40 PM EDT Office Visit [facility] Orthopaedic Surgery & Sports Medicine [address] [place] [address] Norberto West MD [address] [place] [address] documented as of this encounter Visit Diagnoses Diagnosis S/P lumbar fusion- Primary Arthrodesis status Sacroiliac joint pain Disorders of sacrum documented in this encounter Additional Health Concerns Assessment Noted Time A fall risk assessment has been complete d for the patient 04/24/2025 2:23 PM EDT A Body Mass Index follow-up plan has been documented for the patient 04/24/2025 3:24 PM EDT documented as of this encounter Care Teams Hair Spring Cutter Relationship Specialty Start Date End Date Janet Chapman PA [address] [place] [address] PCP - General 06/23/21 Clarence Rubin MD [address] [place] [address] Surgeon Neurosurgery 06/23/21 Frankie Dalton MD [address] [place] [address] Surgeon Neurosurgery 10/13/21 Frankie Dalton MD [address] [place] [address] Surgeon Neurosurgery 12/15/21 Celi Winter PA [address] [place] [address] Physician Rehabilitation Case Coordinator Neurosurgery 04/01/22 Norberto West MD [address] [facility] [address] [place] [address] Surgeon Neurosurgery 10/29/24 documented as of this encounter
--- OUTSIDE RECORDS SUMMARY | 2025-05-29 11:17 | XMS_ITS | Encounter Summary ---
Author Organization [facility] Address [address] [place] [address] Care Team Providers Care Clinical Nursing Intern Name Role Phone Janet Chapman Primary Care Provider [phone] Clarence Rubin MD Unavailable Frankie Dalton MD Unavailable [phone] Frankie Dalton MD Unavailable [phone] Celi Murrell Unavailable [phone] Norberto West MD Unavailable [phone] Encounter Details Date Type Department Care Team (Late Contact Info) Description 05/27/2025 Orders Only External Location [address] [place] [address] Provider, External Social History Tobacco Use Types Packs/Day Years [...] Encounters Date Type Department Care Team (Late Contact Info) Description 08/07/2025 12:40 PM EDT Office Visit [facility] Surgery & [facility] Medicine [address], 1[address] [place] [address] Norberto West MD [address] [place] [address] documented as of this encounter Procedures Procedure Name Priority Date/Time Associated Diagnosis Comments MR NEURO OUTSIDE IMAGES 05/27/2025 7:25 AM EDT documented in this encounter Results * MR NEURO OUTSIDE IMAGES (05/27/2025 7:25 AM EDT) Anatomical Region Laterality Modality Magnetic Resonan ce 05/27/2025 7:25 AM EDT us External Provider IMG MRI PROCEDURES Final Resul t documented in this encounter Visit Diagnoses Not on filedocumented in this encounter Additional Health Concerns Assessment Noted Time A fall risk assessment has been complete d for the patient 04/24/2025 2:23 PM EDT A Body Mass Index follow-up plan has been documented for the patient 04/24/2025 3:24 PM EDT documented as of this encounter Care Teams Clinical Nursing Intern Relationship Specialty Start Date End Date Janet Chapman PA [address] [place] [address] PCP - General 06/23/21 Clarence Rubin MD [address] [place] [address] Surgeon Neurosurgery 06/23/21 Frankie Dalton MD [address] [place] [address] Surgeon Neurosurgery 10/13/21 Frankie Dalton MD [address] [place] [address] Surgeon Neurosurgery 12/15/21 Celi Murrell PA [address] [facility] [place] [address] Physician Ruby On Rails Software Developer Neurosurgery 04/01/22 Norberto West MD [address] [facility] [place] [address] Surgeon Neurosurgery 10/29/24 documented as of this encounter
--- OUTSIDE RECORDS SUMMARY | 2025-05-29 11:17 | XMS_ITS | Encounter Summary ---
Author Organization [facility] Address [address] [place] [address] Care Team Providers Care Oral And Maxillofacial Surgery Name Role Phone Janet Chapman Primary Care Provider [phone] Clarence Rubin MD Unavailable Frankie Dalton MD Unavailable Frankie Dalton MD Unavailable [phone] Celi Murrell Unavailable [phone] Norberto West MD Unavailable [phone] Encounter Details Date Type Department Care Team (Late st Contact Info) Description 12/25/2021 Orders Only External Location [address] [place] [address] Celi Murrell PA [address] [facility] [address] [place] [address] Social History Tobacco Use Types Packs/Day Years [...] Orthopaedic Surgery & Sports Medicine [address] [place] [address] Norberto West MD [address] [place] [address] documented as of this encounter [...] documented as of this encounter Care Teams Oral And Maxillofacial Surgery Relationship Specialty Start Date End Date Janet Chapman PA [address] [place] [address] PCP - General 06/23/21 Clarence Rubin MD [address] [place] [address] Surgeon Neurosurgery 06/23/21 Frankie Dalton MD [address] [place] [address] Surgeon Neurosurgery 10/13/21 Frankie Dalton MD [address] [place] [address] Surgeon Neurosurgery 12/15/21 Celi Murrell PA [address] [place] [address] Physician Field Service Engineer Neurosurgery 04/01/22 Norberto West MD [address] [place] [address] Surgeon Neurosurgery 10/29/24 documented as of this encounter
--- OUTSIDE RECORDS SUMMARY | 2025-05-29 11:17 | XMS_ITS | Encounter Summary ---
Author Organization [facility] Address [address] [place] [address] Care Team Providers Care Glass Grinder Name Role Phone Janet Chapman Primary Care Provider [phone] Clarence Rubin MD Unavailable Frankie Dalton MD Unavailable Frankie Dalton MD Unavailable [phone] Celi Murrell Unavailable [phone] Norberto West MD Unavailable [phone] Encounter Details Date Type Department Care Team (Late st Contact Info) Description 04/12/2025 Telephone [facility] [address], 1[address] [place] [address] Norberto West MD [address] [place] [address] Social History Tobacco Use Types [...] optimal time of day to reach caller: [phone] Note: Please do not reply to this message. Follow-up communication and further actions as a result of this message need to be communicated with the patient directly, if the patient is not active onMyChart. If the patient is active on MyChart, they will receive notification of the communication/outcome via [facility] [employer]. documented in this encounter Plan of Treatment Upcoming Encounters Date Type Department Care Team (Late st Contact Info) Description 08/07/2025 12:40 PM EDT Office Visit [facility] Orthopaedic Surgery & Sports Medicine [address], [address] [place] [address] Norberto West MD [id number] [place] [address] documented as of this encounter Visit Diagnoses Not on filedocumented in this encounter Additional Health Concerns Assessment Noted Time A fall risk assessment has been complete d for the patient 02/06/2025 3:12 PM EDT A Body Mass Index follow-up plan has been documented for the patient 02/06/2025 6:10 PM EDT documented as of this encounter Care Teams Glass Grinder Relationship Specialty Start Date End Date Janet Chapman PA [address] [place] [address] PCP - General 06/23/21 Clarence Rubin MD [address] [place] [address] Surgeon Neurosurgery 06/23/21 Frankie Dalton MD [address] [place] [address] Surgeon Neurosurgery 10/13/21 Frankie Dalton MD [address] [place] [address] Surgeon Neurosurgery 12/15/21 Celi Murrell PA [address] [place] [address] Physician Electronics Parts Sales Representative Neurosurgery 04/01/22 Norberto West MD [address] [place] [address] Surgeon Neurosurgery 10/29/24 documented as of this encounter
--- OUTSIDE RECORDS SUMMARY | 2025-05-29 11:17 | XMS_ITS | Clinical Summary ---
Author Organization [facility] Address [address] [place] [address] Care Team Providers Care Adobe Block Maker Name Role Phone Janet Chapman Primary Care Provider [phone] Clarence Rubin MD Unavailable Frankie Dalton MD Unavailable [phone] Frankie Dalton MD Unavailable [phone] Celi Murrell Unavailable [phone] Norberto West MD Unavailable [phone] Allergies Active Allergy Reactions Criticality Noted [...] (1 mg). 4 Active ergocalciferol 1.25 MG (76071 UT) capsule Takes on Sundays 4 Active [...] Encounters Date Type Department Care Team Description 05/27/2025 Orders Only External Location [address] [place] [address] Provider, External 05/24/2025 Telephone [facility] [address], [address] [place] [address] Norberto West MD HCN - Patient Message 05/23/2025 Orders Only [facility] [address], [address]st [place] [address] Celi Murrell PA Status post lumbar spinal fusion (Primary Dx); Low back pain, unspecified back pain laterality, unspecified chronicity, unspecified whether sciatica present; Bilateral lower extremity pain; Lumbar radiculopathy; Lumbar spondylosis 04/24/2025 1:40 PM EDT Office Visit [facility] Orthopaedic Surgery & Sports Medicine [address], [address] [place] [address] Norberto West MD S/P lumbar fusion (Primary Dx); Sacroiliac joint pain 04/24/2025 9:44 AM EDT - 04/24/2025 11:59 PM EDT Hospital Encounter [facility] Radiology [address], [address] [place] [address] Status post lumbar spinal fusion Discharge Disposition: Home or Self Care 04/24/2025 Travel 04/23/2025 Orders Only [facility] [address], 1st [place] [address] Norberto West MD Status post lumbar spinal fusion (Primary Dx) 04/18/2025 Travel 04/12/2025 Telephone [facility] [address], 1st [place] [address] Norberto West MD from Last 3 Months [...] Description 08/07/2025 12:40 PM EDT Office Visit [facility] Orthopaedic Surgery & Sports Medicine [address], [address] [place] [address] Norberto West MD [address] [place] [address] Health Maintenance Due Date Last [...] 2023 [facility]-Zoster Vaccines (1 of 2) 2023 [id number] Vaccine ( season) 2024 [facility]-Influenza Vaccine (#1) 06/24/202508/02, 08/29/2023, [...] this topic Medical Devices Implanted Type Area Autotransfusionist Device Identifier Shelf Expiration Date Model / Serial / Lot Tlif-C Ui 12mm 8deg 28/10 - [id number] Implanted:Qty : 1 on 11/08/2024 by Norberto West MD at [facility] Cage N/A: Spine Lumbar DePuy Spine Sales [id number] 03/23/2028 [id number] / / Lowell Viper2 Lordotic 45mm - [id number] Implanted:Qty : 2 on 11/08/2024 by Norberto West MD at [facility] Lowell N/A: Spine Lumbar DePuy Spine Sales LP-[id number] 11/08/2025 [id number] / / Single Inner Setscrew - [id number] Implanted:Qty : 4 on 11/08/2024 by Norberto West MD at [facility] Screw N/A: Spine Lumbar DePuy Spine Sales [id number] 11/08/2025 [id number] / / Screw 7.0mm Viper Cfx Fen Xtab 50mm - [id number] Implanted:Qty : 4 on 11/08/2024 by Norberto West MD at [facility] Screw N/A: Spine Lumbar DePuy Spine Sales LP-[id number] 11/08/2025 [id number] / / Tissue Vivigen Formable 5.4cc Med Pk/4 - [id number] - [id number] Implanted:Qty : 1 on 11/08/2024 by Norberto West MD at [facility] Spine Lumbar [facility]-[id number] 10/04/2025 [id number] / [id number] / [id number] Procedures Procedure Name Priority Date/Time Associated Diagnosis Comments MR NEURO OUTSIDE IMAGES 05/27/2025 7:25 AM EDT XR LUMBAR SPINE 4 VIEWS TO INCLUDE FLEXION EXTENSION Routine 04/24/2025 10:01 AM EDT Status post lumbar spinal fusion from Last 3 Months Results * MR NEURO OUTSIDE IMAGES (05/27/2025 7:25 AM EDT) Anatomical Region Laterality Modality Magnetic Resonan ce 05/27/2025 7:25 AM EDT us External Provider IMG MRI PROCEDURES Final Resul t * XR Lumbar Spine 4+ Views w [...] Final Result from Last 3 Months Insurance [facility] MEDICAID Advance Directives * Full Code (Latest Code Status on File) Date Activated Date Inactivated Comments 11/08/2024 11:18 AM 11/09/2024 4:20 PM Question Answer Comments Patient has decision-making capacity? Yes Care Teams Adobe Block Maker Relationship Specialty Start Date End Date Janet Chapman PA [address] [place] [address] PCP - General 06/23/21 Clarence Rubin MD [address] [place] [address] Surgeon Neurosurgery 06/23/21 Frankie Dalton MD [address] [place] [address] Surgeon Neurosurgery 10/13/21 Frankie Dalton MD [address] [place] [address] Surgeon Neurosurgery 12/15/21 Celi Murrell PA [address] [place] [address] Physician Couture Alterations Dressmaker Neurosurgery 04/01/22 Norberto West MD [address] [place] [address] Surgeon Neurosurgery 10/29/24
--- OUTSIDE RECORDS SUMMARY | 2025-05-29 11:17 | XMS_ITS | Encounter Summary ---
Author Organization [facility] Address [address] [place] [address] Care Team Providers Care Clinical Informatics Strategist Name Role Phone Janet Chapman Primary Care Provider [phone] Clarence Rubin MD Unavailable Frankie Dalton MD Unavailable Frankie Dalton MD Unavailable [phone] Celi Murrell Unavailable [phone] Norberto West MD Unavailable [phone] Encounter Details Date Type Department Care Team (Late st Contact Info) Description 04/23/2025 Orders Only [place] [facility] [address], 1st [place] [address] Norberto West MD [address] [place] [address] Status post lumbar spinal fusion [...] Description 08/07/2025 12:40 PM EDT Office Visit [facility] Orthopaedic Surgery & Sports Medicine [address], [address] [place] [address] Norberto West MD [address] [place] [address] documented as of this encounter [...] as of this encounter Care Teams Clinical Informatics Strategist Relationship Specialty Start Date End Date Janet Chapman PA [address] [place] [address] PCP - General 06/23/21 Clarence Rubin MD [address] [place] [address] Surgeon Neurosurgery 06/23/21 Frankie Dalton MD [address] [place] [address] Surgeon Neurosurgery 10/13/21 Frankie Dalton MD [address] [place] [address] Surgeon Neurosurgery 12/15/21 Celi Murrell PA [address] [place] [address] Physician Wire Charger Neurosurgery 04/01/22 Norberto West MD [address] [place] [address] Surgeon Neurosurgery 10/29/24 documented as of this encounter
--- OUTSIDE RECORDS SUMMARY | 2025-05-29 11:17 | XMS_ITS | Encounter Summary ---
Author Organization [facility] Address [address] [place] [address] Care Team Providers Care Casino Floor Walker Name Role Phone Janet Chapman Primary Care Provider [phone] Clarence Rubin MD Unavailable Frankie Dalton MD Unavailable [phone] Frankie Dalton MD Unavailable [phone] Celi Murrell Unavailable [phone] Norberto West MD Unavailable [phone] Encounter Details Date Type Department Care [...] Orthopaedic Surgery & Sports Medicine [address], 1[address] [place] [address] Norberto West MD [address] [place] [address] documented as of this encounter Visit Diagnoses Not on filedocumented in this encounter Additional Health Concerns Assessment Noted Time A fall risk assessment has been complete d for the patient 04/24/2025 2:23 PM EDT A Body Mass Index follow-up plan has been documented for the patient 04/24/2025 3:24 PM EDT documented as of this encounter Care Teams Casino Floor Walker Relationship Specialty Start Date End Date Janet Chapman PA [address] [place] [address] PCP - General 06/23/21 Clarence Rubin MD [address] [place] [address] Surgeon Neurosurgery 06/23/21 Frankie Dalton MD [address] [place] [address] Surgeon Neurosurgery 10/13/21 Frankie Dalton MD [address] [place] [address] Surgeon Neurosurgery 12/15/21 Celi Murrell PA [address] [place] [address] Physician Extractor Operator Solvent Process Neurosurgery 04/01/22 Norberto West MD [address] [place] [address] Surgeon Neurosurgery 10/29/24 documented as of this encounter
--- OUTSIDE RECORDS SUMMARY | 2025-05-29 11:17 | XMS_ITS | Encounter Summary ---
Author Organization [facility] Address [address] [place] [address] Care Team Providers Care Dental Chairside Assistant Name Role Phone Janet Chapman Primary Care Provider [phone] Clarence Rubin MD Unavailable Frankie Dalton MD Unavailable [phone] Frankie Dalton MD Unavailable [phone] Celi Murrell Unavailable [phone] Norberto West MD Unavailable [phone] Reason for Visit * Reason Onset Date Comments HCN - Patient Message 05/24/2025 Encounter Details Date Type Department Care Team (Late st Contact Info) Description 05/24/2025 Telephone [place] [facility] [address]st [place] [address] Norberto West MD [address] [place] [address] HCN - Patient Message Social [...] her know that everything was fxd to [facility] this morning and they will contact her to schedule. She verbalized understanding. * Telephone Encounter - Eden Bonilla - 05/24/2025 8:58 AM EDT Patient Phone Message Reason for Call: [facility] told her MRI was to be done at [facility] has no orders at this time Where will MRI be scheduled ? Best contact number and optimal time of day to reach caller: Pt / [phone] Note: Please do not reply to this message. Follow-up communication and further actions as a result of this message need to be communicated with the patient directly, if the patient is not active onMyChart. If the patient is active on MyChart, they will receive notification of the communication/outcome via Jot[employer]. documented in this encounter Plan of Treatment Upcoming Encounters Date Type Department Care Team (Late st Contact Info) Description 08/07/2025 12:40 PM EDT Office Visit [facility] Orthopaedic Surgery & Sports Medicine [address] [place] [address] Norberto West MD [address] [place] [address] documented as of this encounter Visit Diagnoses Not on filedocumented in this encounter Additional Health Concerns Assessment Noted Time A fall risk assessment has been complete d for the patient 04/24/2025 2:23 PM EDT A Body Mass Index follow-up plan has been documented for the patient 04/24/2025 3:24 PM EDT documented as of this encounter Care Teams Dental Chairside Assistant Relationship Specialty Start Date End Date Janet Chapman PA [address] [place] [address] PCP - General 06/23/21 Clarence Rubin MD [address] [place] [address] Surgeon Neurosurgery 06/23/21 Frankie Dalton MD [address] [place] [address] Surgeon Neurosurgery 10/13/21 Frankie Dalton MD [address] [place] [address] Surgeon Neurosurgery 12/15/21 Celi Murrell PA [address] [place] [address] Physician Regasification Plant Operator Neurosurgery 04/01/22 Norberto West MD [address] [place] [address] Surgeon Neurosurgery 10/29/24 documented as of this encounter
--- OUTSIDE RECORDS SUMMARY | 2025-05-29 11:17 | XMS_ITS | Encounter Summary ---
Author Organization [facility] Address [address] [place] [address] Care Team Providers Care Streetcar Repairer Helper Name Role Phone Janet Chapman Primary Care Provider [phone] Clarence Rubin MD Unavailable Frankie Dalton MD Unavailable [phone] Frankie Dalton MD Unavailable [phone] Celi Murrell Unavailable [phone] Norberto West MD Unavailable [phone] Encounter Details Date Type Department Care [...] Description 08/07/2025 12:40 PM EDT Office Visit [facility] Orthopaedic Surgery & Sports Medicine [address] [place] [address] Norberto West MD [address] [place] [address] documented as of this encounter Visit Diagnoses Not on filedocumented in this encounter Additional Health Concerns Assessment Noted Time A fall risk assessment has been complete d for the patient 02/06/2025 3:12 PM EDT A Body Mass Index follow-up plan has been documented for the patient 02/06/2025 6:10 PM EDT documented as of this encounter Care Teams Streetcar Repairer Helper Relationship Specialty Start Date End Date Janet Chapman PA [address] [place] [address] PCP - General 06/23/21 Clarence Rubin MD [address] [place] [address] Surgeon Neurosurgery 06/23/21 Frankie Dalton MD [address] [place] [address] Surgeon Neurosurgery 10/13/21 Frankie Dalton MD [address] [place] [address] Surgeon Neurosurgery 12/15/21 Celi Murrell PA [address] [place] [address] Physician Ccie Neurosurgery 04/01/22 Norberto West MD [address] [place] [address] Surgeon Neurosurgery 10/29/24 documented as of this encounter
--- OUTSIDE RECORDS SUMMARY | 2025-05-29 11:17 | XMS_ITS | Encounter Summary ---
Author Organization [facility] Address [address] [place] [address] Care Team Providers Care Metal Casket Maker Name Role Phone Janet Chapman Primary Care Provider [phone] Clarence Rubin MD Unavailable Frankie Dalton MD Unavailable [phone] Frankie Dalton MD Unavailable [phone] Celi Murrell Unavailable [phone] Norberto West MD Unavailable [phone] Encounter Details Date Type Department Care Team (Late st Contact Info) Description 03/17/2021 Orders Only [place] [facility] [address]st [place] [address] Des Da Silva MD [address] [place] [address] Lumbar radiculopathy (Primary Dx) Social [...] Description 08/07/2025 12:40 PM EDT Office Visit [facility] Orthopaedic Surgery & Sports Medicine [address] [place] [address] Norberto West MD [address] [place] [address] documented as of this encounter Visit Diagnoses Diagnosis Lumbar radiculopathy- Primary Thoracic or lumbosacral neuritis or radiculitis, unspecified documented in this encounter Care Teams Metal Casket Maker Relationship Specialty Start Date End Date Janet Chapman PA [address] [facility] [place] [address] PCP - General 06/23/21 Clarence Rubin MD [address] [place] [address] Surgeon Neurosurgery 06/23/21 Frankie Dalton MD [address] [place] [address] Surgeon Neurosurgery 10/13/21 Frankie Dalton MD [address] [place] [address] Surgeon Neurosurgery 12/15/21 Celi Murrell PA [address] [place] [address] Physician Wooden Boat Builder Neurosurgery 04/01/22 Norberto West MD [address] [place] [address] Surgeon Neurosurgery 10/29/24 documented as of this encounter
--- OUTSIDE RECORDS SUMMARY | 2025-05-29 11:17 | XMS_ITS | Clinical Summary ---
Author Organization [facility] Address [address] [place] [address] Care Team Providers Care Card Dealer Name Role Phone Janet Chapman Primary Care Provider [phone] Allergies No known active allergies Medications escitalopram [...] VACCINE 07/24/2025 08/15/2018, 08/15/2018 Insurance [employer] [id number] [facility] Care Teams Card Dealer Relationship Specialty Start Date End Date Janet Chapman PA PCP - General Physician Delicatessen Goods Stock Clerk 07/14/21
--- OUTSIDE RECORDS SUMMARY | 2025-05-29 11:17 | XMS_ITS | Encounter Summary ---
Author Organization [facility] Address [address] [place] [address] Care Team Providers Care Lube Worker Name Role Phone Janet Chapman Primary Care Provider [phone] Clarence Rubin MD Unavailable Frankie Dalton MD Unavailable [phone] Frankie Dalton MD Unavailable [phone] Celi Murrell Unavailable [phone] Norberto West MD Unavailable [phone] Reason for Referral * Imaging (Urgent) - Authorized Specialty Diagnoses / Procedures Referred By Contac t Referred To Contact Diagnoses Status post lumbar spinal fusion Low back pain, unspecified back pain laterality, unspecified chronicity, unspecified whether sciatica present Bilateral lower extremity pain Lumbar radiculopathy Lumbar spondylosis Procedures MR Lumbar Spine wo IV Contrast Celi Murrell PA [address] [place] [address] Phone: tel: fax: Referral ID Status Reason Start Date Expiration Date V isits Requested Visits Authorized [id number] Authorized 05/23/2025 11/22/2026 1 1 Encounter Details Date Type Department Care Team (Late st Contact Info) Description 05/23/2025 Orders Only [facility] [address] [place] [address] Celi Murrell PA [id number] [place] [address] Status post lumbar spinal fusion [...] Orthopaedic Surgery & Sports Medicine [address] [place] [address] Norberto West MD [address] [address] Scheduled Orders Name Type Priority [...] documented as of this encounter Care Teams Lube Worker Relationship Specialty Start Date End Date Janet Chapman PA [address] [facility] [place] [address] PCP - General 06/23/21 Clarence Rubin MD [address] [place] [address] Surgeon Neurosurgery 06/23/21 Frankie Dalton MD [address] [place] [address] Surgeon Neurosurgery 10/13/21 Frankie Dalton MD [address] [place] [address] Surgeon Neurosurgery 12/15/21 Celi Murrell PA [address] [place] [address] Physician Supervisor Ordnance Truck Installation Neurosurgery 04/01/22 Norberto West MD [address] [place] [address] Surgeon Neurosurgery 10/29/24 documented as of this encounter
--- NOTE | 2025-05-29 11:50 | EXP.PAIN.SOA ---
[facility] Disclaimer: The information contained in this section may have been updated after the patient was seen, as this information can be updated by other users. Medical History Sinusitis Nasal congestion Piriformis syndrome Back pain Left otitis media Viral respiratory illness Otitis media H. pylori infection Diarrhea Myalgia Chills Fever IBS (irritable bowel syndrome) Asthma Mouth ulcer Neuroforaminal stenosis of lumbar spine Herniation of lumbar intervertebral disc with radiculopathy Radicular pain of both lower extremities Lumbar canal stenosis Diabetes Neuropathy Low back pain History of rheumatic fever Urinary incontinence Hyperlipidemia Fibromyalgia Hypertension Perioral dermatitis Vitamin D deficiency (~08/19/18) Hand pain, left Depression Surgical History History of lumbar fusion History of section History of hand surgery CMC joint bilateral History of hysterectomy partial H/O lumbar discectomy Family History Other Diabetes FHx: mental illness Family history of cancer Hyperlipidemia Hypertension Social History Smoking Status: Former smoker tobacco type: cigarettes packs per day: 1 second hand exposure: Yes alcohol intake: current alcohol intake frequency: holidays/special occasions only substance use type: denies use current occupational status: unemployed Travel in the last 8 weeks?: None household members: spouse housing: house current occupational exposures/hazards: No caffeine: Yes PM Subjective & Objective Subjective Subjective:: Patient is a pleasant 49-year-old female who presents today for worsening low back and hip pain. She rates her pain today a 5 out of 10. She does state that she did have 1 fall from her last visit however did not do anything significant. Patient has been seeing physical therapy over the last 5 to 6 weeks going twice per week and never noticed any additional improvement. Patient has also had an updated lumbar MRI that she would like to review over. She does state the pain is still a aching sensation with prolonged sitting or laying down. She does state the pain is interfering with her ability perform activities of daily living such as cooking and cleaning and she would like to see about doing some injections. Patient did get the compounded cream and states that that did help. She denies any other changes. Her Wali has been reviewed and is appropriate. Review of Systems: General: No recent weight changes, no fever, no sleep disturbances Respiratory: No cough, no shortness of air, no recurring pulmonary infections Cardiovascular/peripheral vascular: No chest pain, no palpitations, no edema, no shortness of breath Gastrointestinal: No new onset incontinence, normal bowel movements reported Genitourinary: No new onset incontinence Musculoskeletal: Low back pain, bilateral hip pain Psychiatric: [Normal mood/affect] Neurological: [Denies weakness in extremities], [denies balance issues] Pain at rest (0-10 scale): 5 Objective Objective:: Physical Exam: General: Alert and oriented x3, no acute distress, pleasant and cooperative Lungs: Respirations even and unlabored, symmetrical chest expansion Eyes: PERRL Musculoskeletal: Flexion and extension of lumbar [spine] somewhat guarded secondary to pain, [antalgic gait noted] point tenderness along bilateral SIs with positive bilateral Lary's, Zac's, Gaenslen's, compression and distraction exam Neurological: Speech clear, no gross sensory deficit Has patient had previous pain injection?: No Conservative treatment options previously tried: Home exercise plan Length of treatment: Longer than 12-week and Physical Therapy Length of treatment: Longer than 6 weeks Meds Home Medications and Allergies Home Medications ?Medication ?Instructions ?Recorded ?Confirmed ?Type albuterol sulfate 90 mcg/actuation 2 inh inhalation Q6H PRN shortness 06/16/24 05/08/25 Rx aerosol inhaler of breath or wheezing #6.7 grams atorvastatin 20 mg tablet 20 mg PO HS 06/16/24 05/08/25 History brexpiprazole 1 mg tablet (Rexulti) 1 mg PO DAILY 06/16/24 05/08/25 History escitalopram oxalate 20 mg tablet 20 mg PO DAILY 06/16/24 05/08/25 History semaglutide 0.25 mg or 0.5 mg (2 0.25 mg SQ WEEKLY 08/17/24 05/08/25 History mg/3 mL) subcutaneous pen injector (Sentient) cholecalciferol (vitamin D3) 50 50 mcg PO DIRECTED SUPPLIMENT 01/21/25 05/08/25 History mcg (2,000 unit) capsule lidocaine 5 % topical patch 1 patch topical DAILY #15 ea 01/21/25 05/08/25 Rx lisinopril 10 mg tablet See Rx Instructions .Route 02/01/25 05/08/25 Rx .COMPLEX #30 tabs estradiol 0.01% (0.1 mg/gram) 1 appful vaginal DAILY #42.5 grams 02/25/25 05/08/25 Rx vaginal cream (Estrace) oxybutynin chloride 10 mg 10 mg PO DAILY #90 tabs 02/25/25 05/08/25 Rx tablet,extended release 24 hr benzonatate 100 mg capsule 100 mg PO TID PRN cough #30 caps 03/03/25 05/08/25 Rx cyclobenzaprine 5 mg tablet 5 mg PO TID PRN muscle spasm #20 03/18/25 05/08/25 Rx tabs New Prescriptions to Start Prescriptions: Allergies Allergy/AdvReac Type Severity Reaction Status Date / Time morphine Allergy Abdominal Verified 05/08/25 11:08 Pain cariprazine (From Vraylar) AdvReac Intermediate tics Verified 05/08/25 11:08 Opioids - Morphine Analogues AdvReac Intermediate Vomiting Verified 05/08/25 11:08 acetaminophen (From Lortab) AdvReac Mild Vomiting Verified 05/08/25 11:08 hydrocodone (From Lortab) AdvReac Unknown Verified 05/08/25 11:08 allergy reaction metformin AdvReac Vomiting Verified 05/08/25 11:08 Assessment and Plan *Assessment and plan (1) Bilateral sacroiliitis: Status: Acute Category: Medical Code(s): M46.1 - Sacroiliitis, not elsewhere classified Plan Patient is experiencing worsening pain along the low back and bilateral hips. They did have limited range of motion of the lumbar spine along with point tenderness along bilateral SI joints and a positive bilateral Lary's, Zac's, Gaenslen's, compression and distraction exam. I did discuss with the patient that I do believe they would benefit from bilateral SI injections. Risk and benefits were discussed with the patient and they would like to proceed forward with this option. Patient has tried and failed conservative therapy. Patient has been actively doing conservative treatment including oral medication, heat and ice, topicals, at home exercising and stretching for longer than 12 weeks. Patient has also gone to physical therapy for 6 weeks with no additional improvement. Patient has had pain for longer than 3 months. Patient is having to adjust their activity based off the increased pain resulting in activity modification. I do believe the patient would benefit from SI injection. If the patient does get significant relief following these injections we will see in the future if they would benefit from a second set with the possibility of SI fusion at a later date. This will be a diagnostic injection with less than 1 mL solution to be injected. Patient will be scheduled for bilateral SI injections under fluoroscopy. I did also review over the patient's MRI findings. Patient has been instructed to contact the clinic with any concerns before the next appointment. Dr. Buenrostro has reviewed this note and agrees with this plan of care. This note was dictated using voice recognition software and make contain errors or omissions. All injections are used with Lidocaine or Bupivacaine and dexamethasone unless diagnostic in which no steroids were injected.
[2025-05-29 12:37] VITALS: BP 114/78; PULSE 78; RESP 18; O2SAT 98; BMI 34.9
== END 2025-05-29 23:59 | disposition home or self-care (01) ==
LOC: SC.PAIN 11:15
PROVIDERS: PCP Physician Assistant; Visit Provider Nurse Practitioner Family
DX: M46.1 Sacroiliitis, not elsewhere classified (principal)
CPT/HCPCS: 99212; G0463

== ENCOUNTER 2025-06-11 18:41 | Emergency (ER) | payer OTHER, SELFPAY ==
--- OUTSIDE RECORDS SUMMARY | 2025-04-24 09:44 | XMS_ITS | Encounter Summary ---
Author Organization [facility] Address [address] [place] [address] Care Team Providers Care Extruder Operator Multiple Name Role Phone Janet Chapman Primary Care Provider [phone] Clarence Rubin MD Unavailable Frankie Dalton MD Unavailable [phone] Frankie Dalton MD Unavailable [phone] Celi Murrell Unavailable [phone] Norberto West MD Unavailable [phone] Encounter Details Date Type Department Care Team (Latest Contact Info) Description 04/24/2025 9:44 AM EDT - 04/24/2025 11:59 PM EDT Hospital Encounter [place] [facility] [address] [place] [address] Status post lumbar spinal fusion Discharge Disposition: [...] day as needed. 04/22/2025 ergocalciferol 1.25 MG (98878 UT) capsule Takes on Sundays02/23/2024 escitalopram (Lexapro) [...] Description 08/07/2025 12:40 PM EDT Office Visit [facility] Orthopaedic Surgery & Sports Medicine [address] [place] [address] Norberto West MD [address] [place] [address] documented as of this encounter [...] documented as of this encounter Care Teams Extruder Operator Multiple Relationship Specialty Start Date End Date Janet Chapman PA [address] [place] [address] PCP - General 06/23/21 Clarence Rubin MD [address] [place] [address] Surgeon Neurosurgery 06/23/21 Frankie Dalton MD [address] [place] [address] Surgeon Neurosurgery 10/13/21 Frankie Dalton MD [address] [place] [address] Surgeon Neurosurgery 12/15/21 Celi Murrell PA [address] [place] [address] Physician Health Policy Nurse Neurosurgery 04/01/22 Norberto West MD [address] [place] [address] Surgeon Neurosurgery 10/29/24 documented as of this encounter
--- OUTSIDE RECORDS SUMMARY | 2025-04-24 13:40 | XMS_ITS | Encounter Summary ---
Author Organization [facility] Address [address] [place] [address] Care Team Providers Care Salesperson Florist Supplies Name Role Phone Janet Chapman Primary Care Provider [phone] Clarence Rubin MD Unavailable Frankie Dalton MD Unavailable [phone] Frankie Dalton MD Unavailable [phone] Celi Winter Unavailable [phone] Norberto West MD Unavailable [phone] Encounter Details Date Type Department Care Team (Late st Contact Info) Description 04/24/2025 1:40 PM EDT Office Visit [facility] [address] [place] [address] Norberto West MD [address] [place] [address] S/P lumbar fusion (Primary Dx); [...] coordination of care. I spent >50% in xktq-lx-ainz communication with the patient over the diagnosis, treatment options and plan. Norberto West MD MS Air Brake Mechanic of Neurosurgery Complex and Minimally Invasive Spine Surgery [address] [place] [address] [place], [address] Addendum 05/23/2025: Physical therapy notes have been [...] Description 08/07/2025 12:40 PM EDT Office Visit [facility] Orthopaedic Surgery & Sports Medicine [address] [place] [address] Norberto West MD [address] [place] [address] documented as of this encounter [...] documented as of this encounter Care Teams Salesperson Florist Supplies Relationship Specialty Start Date End Date Janet Chapman PA [address] [place] [address] PCP - General 06/23/21 Clarence Rubin MD [address] [place] [address] Surgeon Neurosurgery 06/23/21 Frankie Dalton MD [address] [place] [address] Surgeon Neurosurgery 10/13/21 Frankie Dalton MD [address] [place] [address] Surgeon Neurosurgery 12/15/21 Celi Winter PA [address] [place] [address] Physician Clinical Dietician Neurosurgery 04/01/22 Norberto West MD [address] [facility] [address] [place] [address] Surgeon Neurosurgery 10/29/24 documented as of this encounter
[2025-06-11] VITALS (7 sets, daily range): BP systolic 125–177; BP diastolic 74–96; PULSE 85–94; RESP 18–21; TEMP 36.6–37.1; O2SAT 94–98; BMI 36.9
--- OUTSIDE RECORDS SUMMARY | 2025-06-11 20:09 | XMS_ITS | Encounter Summary ---
Author Organization [facility] Address [address] [place] [address] Care Team Providers Care Scientific Specialist Name Role Phone Janet Chapman Primary Care Provider [phone] Clarence Rubin MD Unavailable Frankie Dalton MD Unavailable [phone] Frankie Dalton MD Unavailable [phone] Celi Murrell Unavailable [phone] Norberto West MD Unavailable [phone] Encounter Details Date Type Department Care [...] Description 08/07/2025 12:40 PM EDT Office Visit [place] [facility] [address] [place] [address] Norberto West MD [address] [place] [address] documented as of this encounter Visit Diagnoses Not on filedocumented in this encounter Additional Health Concerns Assessment Noted Time A fall risk assessment has been complete d for the patient 04/24/2025 2:23 PM EDT A Body Mass Index follow-up plan has been documented for the patient 04/24/2025 3:24 PM EDT documented as of this encounter Care Teams Scientific Specialist Relationship Specialty Start Date End Date Janet Chapman PA [address] [place] [address] PCP - General 06/23/21 Clarence Rubin MD [address] [place] [address] Surgeon Neurosurgery 06/23/21 Frankie Dalton MD [address] [place] [address] Surgeon Neurosurgery 10/13/21 Frankie Dalton MD [address] [place] [address] Surgeon Neurosurgery 12/15/21 Celi Murrell PA [address] [place] [address] Physician Mechanical Ordnance Assembler Neurosurgery 04/01/22 Norberto West MD [address] [place] [address] Surgeon Neurosurgery 10/29/24 documented as of this encounter
--- OUTSIDE RECORDS SUMMARY | 2025-06-11 20:09 | XMS_ITS | Encounter Summary ---
Author Organization [facility] Address [address] [place] [address] Care Team Providers Care Rod Tape Operator Name Role Phone Janet Chapman Primary Care Provider [phone] Clarence Rubin MD Unavailable Frankie Dalton MD Unavailable [phone] Frankie Dalton MD Unavailable [phone] Celi Murrell Unavailable [phone] Norberto West MD Unavailable [phone] Encounter Details Date Type Department Care Team (Late Contact Info) Description 05/27/2025 Orders Only External Location [address] [place] [address] Provider, External Social History Tobacco Use Types [...] Orthopaedic Surgery & Sports Medicine [address] [place] [address] Norberto West MD [address] [place] [address] documented as of this encounter [...] documented as of this encounter Care Teams Rod Tape Operator Relationship Specialty Start Date End Date Janet Chapman PA [address] [place] [address] PCP - General 06/23/21 Clarence Rubin MD [address] [place] [address] Surgeon Neurosurgery 06/23/21 Frankie Dalton MD [address] [place] [address] Surgeon Neurosurgery 10/13/21 Frankie Dalton MD [address] [place] [address] Surgeon Neurosurgery 12/15/21 Celi Murrell PA [address] [place] [address] Physician Slicing Machine Feeder Neurosurgery 04/01/22 Norberto West MD [address] [place] [address] Surgeon Neurosurgery 10/29/24 documented as of this encounter
--- OUTSIDE RECORDS SUMMARY | 2025-06-11 20:09 | XMS_ITS | Encounter Summary ---
Author Organization [facility] Address [address] [place] [address] Care Team Providers Care Machine Hoop Maker Name Role Phone Janet Chapman Primary Care Provider [phone] Clarence Rubin MD Unavailable Frankie Dalton MD Unavailable [phone] Frankie Dalton MD Unavailable [phone] Celi Murrell Unavailable [phone] Norberto West MD Unavailable [phone] Encounter Details Date Type Department Care [...] Orthopaedic Surgery & Sports Medicine [address] [place] [address] Norberto West MD [address] [place] [address] documented as of this encounter Visit Diagnoses Not on filedocumented in this encounter Additional Health Concerns Assessment Noted Time A fall risk assessment has been complete d for the patient 02/06/2025 3:12 PM EDT A Body Mass Index follow-up plan has been documented for the patient 02/06/2025 6:10 PM EDT documented as of this encounter Care Teams Machine Hoop Maker Relationship Specialty Start Date End Date Janet Chapman PA [address] [place] [address] PCP - General 06/23/21 Clarence Rubin MD [address] [place] [address] Surgeon Neurosurgery 06/23/21 Frankie Dalton MD [address] [place] [address] Surgeon Neurosurgery 10/13/21 Frankie Dalton MD [address] [place] [address] Surgeon Neurosurgery 12/15/21 Celi Murrell PA [address] [place] [address] Physician Belt Worker Neurosurgery 04/01/22 Norberto West MD [address] [place] [address] Surgeon Neurosurgery 10/29/24 documented as of this encounter
--- OUTSIDE RECORDS SUMMARY | 2025-06-11 20:09 | XMS_ITS | Encounter Summary ---
Author Organization [facility] Address [address] [place] [address] Care Team Providers Care Ship Engineer Name Role Phone Janet Chapman Primary Care Provider [phone] Clarence Rubin MD Unavailable Frankie Dalton MD Unavailable [phone] Frankie Dalton MD Unavailable [phone] Celi Murrell Unavailable [phone] Norberto West MD Unavailable [phone] Encounter Details Date Type Department Care Team (Late st Contact Info) Description 03/17/2021 Orders Only [place] [facility] [address], [address] [place] [address] Des Da Silva MD [address] [place] [address] Lumbar radiculopathy (Primary Dx) Social [...] [address] [place] [address] Norberto West MD [address] [place] [address] documented as of this encounter Visit Diagnoses Diagnosis Lumbar radiculopathy- Primary Thoracic or lumbosacral neuritis or radiculitis, unspecified documented in this encounter Care Teams Ship Engineer Relationship Specialty Start Date End Date Janet Chapman PA [address] [place] [address] PCP - General 06/23/21 Clarence Rubin MD [address] [place] [address] Surgeon Neurosurgery 06/23/21 Frankie Dalton MD [address] [place] [address] Surgeon Neurosurgery 10/13/21 Frankie Dalton MD [address] [place] [address] Surgeon Neurosurgery 12/15/21 Celi Murrell PA [address] [place] [address] Physician Roof Truss Builder Neurosurgery 04/01/22 Norberto West MD [address] [place] [address] Surgeon Neurosurgery 10/29/24 documented as of this encounter
--- OUTSIDE RECORDS SUMMARY | 2025-06-11 20:09 | XMS_ITS | Encounter Summary ---
Author Organization [facility] Address [address] [place] [address] Care Team Providers Care Director Internal Communications Name Role Phone Janet Chapman Primary Care Provider [phone] Clarence Rubin MD Unavailable Frankie Dalton MD Unavailable Frankie Dalton MD Unavailable [phone] Celi Murrell Unavailable [phone] Norberto West MD Unavailable [phone] Encounter Details Date Type Department Care Team (Late st Contact Info) Description 04/12/2025 Telephone [facility] [facility] [address] [place] [address] Norberto West MD [address] [place] [address] Social History Tobacco Use Types [...] optimal time of day to reach caller: [phone] Note: Please do not reply to this message. Follow-up communication and further actions as a result of this message need to be communicated with the patient directly, if the patient is not active onMyChart. If the patient is active on MyChart, they will receive notification of the communication/outcome via [employer]. documented in this encounter Plan of Treatment Upcoming Encounters Date Type Department Care Team (Late st Contact Info) Description 08/07/2025 12:40 PM EDT Office Visit [facility] Surgery [facility] Medicine [address] [place] [address] Norberto West MD [id number] [place] [address] documented as of this encounter Visit Diagnoses Not on filedocumented in this encounter Additional Health Concerns Assessment Noted Time A fall risk assessment has been complete d for the patient 02/06/2025 3:12 PM EDT A Body Mass Index follow-up plan has been documented for the patient 02/06/2025 6:10 PM EDT documented as of this encounter Care Teams Director Internal Communications Relationship Specialty Start Date End Date Janet Chapman PA [address] [place] [address] PCP - General 06/23/21 Clarence Rubin MD [id number] [place] [address] Surgeon Neurosurgery 06/23/21 Frankie Dalton MD [address] [place] [address] Surgeon Neurosurgery 10/13/21 Frankie Dalton MD [address] [place] [address] Surgeon Neurosurgery 12/15/21 Celi Murrell PA [address] [place] [address] Physician Emery Wheel Worker Neurosurgery 04/01/22 Norberto West MD [address] [place] [address] Surgeon Neurosurgery 10/29/24 documented as of this encounter
--- OUTSIDE RECORDS SUMMARY | 2025-06-11 20:09 | XMS_ITS | Clinical Summary ---
Author Organization [facility] Address [address] [place] [address] Care Team Providers Care A And P Technician Name Role Phone Janet Chapman Primary Care Provider [phone] Allergies No known active allergies Medications escitalopram [...] VACCINE 07/24/2025 08/15/2018, 08/15/2018 Insurance [employer] [id number] [facility] Care Teams A And P Technician Relationship Specialty Start Date End Date Janet Chapman PA PCP - General Physician Leave Specialist 07/14/21
--- OUTSIDE RECORDS SUMMARY | 2025-06-11 20:09 | XMS_ITS | Encounter Summary ---
Author Organization [facility] Address [address] [place] [address] Care Team Providers Care Junior Java Developer Name Role Phone Janet Chapman Primary Care Provider [phone] Clarence Rubin MD Unavailable Frankie Dalton MD Unavailable [phone] Frankie Dalton MD Unavailable [phone] Celi Murrell Unavailable [phone] Norberto West MD Unavailable [phone] Encounter Details Date Type Department Care Team (Late st Contact Info) Description 04/23/2025 Orders Only [place] [facility] [address] [place] [address] Norberto West MD [address] [place] [address] Status post lumbar spinal fusion [...] Orthopaedic Surgery & Sports Medicine [address] [place] [address] Norberto West MD [address] [place] [address] documented as of this encounter [...] documented as of this encounter Care Teams Junior Java Developer Relationship Specialty Start Date End Date Janet Chapman PA [address] [place] [address] PCP - General 06/23/21 Clarence Rubin MD [address] [place] [address] Surgeon Neurosurgery 06/23/21 Frankie Dalton MD [address] [place] [address] Surgeon Neurosurgery 10/13/21 Frankie Dalton MD [address] [place] [address] Surgeon Neurosurgery 12/15/21 Celi Murrell PA [address] [place] [address] Physician Vegetable Farming Supervisor Neurosurgery 04/01/22 Norberto West MD [address] [place] [address] Surgeon Neurosurgery 10/29/24 documented as of this encounter
--- OUTSIDE RECORDS SUMMARY | 2025-06-11 20:09 | XMS_ITS | Encounter Summary ---
Author Organization [facility] Address [address] [place] [address] Care Team Providers Care Pyridine Operator Name Role Phone Janet Chapman Primary Care Provider [phone] Clarence Rubin MD Unavailable Frankie Dalton MD Unavailable Frankie Dalton MD Unavailable [phone] Celi Murrell Unavailable [phone] Norberto West MD Unavailable [phone] Encounter Details Date Type Department Care Team (Late st Contact Info) Description 12/25/2021 Orders Only External Location [address] [place] [address] Celi Murrell PA [address] [facility] [address] [place] [address] Social History Tobacco Use Types Packs/Day Years [...] 12:40 PM EDT Office Visit [facility]opa[facility] Surgery [facility] Medicine [address] [place] [address] Norberto West MD [address] [place] [address] documented as of this encounter [...] documented as of this encounter Care Teams Pyridine Operator Relationship Specialty Start Date End Date Janet Chapman PA [address] [place] [address] PCP - General 06/23/21 Clarence Rubin MD [address] [place] [address] Surgeon Neurosurgery 06/23/21 Frankie Dalton MD [address] [place] [address] Surgeon Neurosurgery 10/13/21 Frankie Dalton MD [address] [place] [address] Surgeon Neurosurgery 12/15/21 Celi Murrell PA [address] [place] [address] Physician Ground Source Heat Pump Technician Neurosurgery 04/01/22 Norberto West MD [address] [place] [address] Surgeon Neurosurgery 10/29/24 documented as of this encounter
--- OUTSIDE RECORDS SUMMARY | 2025-06-11 20:09 | XMS_ITS | Encounter Summary ---
Author Organization [facility] Address [address] [place] [address] Care Team Providers Care Forestry Technical Officer Name Role Phone Janet Chapman Primary Care Provider [phone] Clarence Rubin MD Unavailable Frankie Dalton MD Unavailable [phone] Frankie Dalton MD Unavailable [phone] Celi Murrell Unavailable [phone] Norberto West MD Unavailable [phone] Reason for Referral * Imaging (Urgent) - Authorized Specialty Diagnoses / Procedures Referred By Contac t Referred To Contact Diagnoses Status post lumbar spinal fusion Low back pain, unspecified back pain laterality, unspecified chronicity, unspecified whether sciatica present Lumbar spondylosis Bilateral lower extremity pain Lumbar radiculopathy Procedures CT Lumbar Spine wo IV Contrast Celi Murrell PA [address] [place] [address] Phone: tel: fax: Referral ID Status Reason Start Date Expiration Date V isits Requested Visits Authorized [id number] Authorized 05/31/2025 11/30/2026 1 1 Encounter Details Date Type Department Care Team (Late st Contact Info) Description 05/31/2025 Orders Only [facility] [address] [place] [address] Celi Murrell PA [id number] [place] [address] Status post lumbar spinal fusion (Primary Dx); Low back pain, unspecified back pain laterality, unspecified chronicity, unspecified whether sciatica present; Lumbar spondylosis; Bilateral lower extremity pain; Lumbar radiculopathy Social History Tobacco Use Types Packs/Day Years [...] 08/07/2025 12:40 PM EDT Office Visit [facility] [address] [place] [address] Norberto West MD [address] [address] Scheduled Orders Name Type Priority Associated Diagnoses Orde r Schedule CT Lumbar Spine wo IV Contrast Imaging STAT Status post lumbar spinal fusion Low back pain, unspecified back pain laterality, unspecified chronicity, unspecified whether sciatica present Lumbar spondylosis Bilateral lower extremity pain Lumbar radiculopathy Expected: 06/01/2025 (Approximate), Expires: 12/02/2026 documented as of this encounter Visit Diagnoses Diagnosis Status post lumbar spinal fusion- Primary Arthrodesis status Low back pain, unspecified back pain laterality, unspecified chronicity, unspecified whether sciatica present Lumbar spondylosis Lumbosacral spondylosis without myelopathy Bilateral lower extremity pain Lumbar radiculopathy Thoracic or lumbosacral neuritis or radiculitis, unspecified documented in this encounter Additional Health Concerns Assessment Noted Time A fall risk assessment has been complete d for the patient 04/24/2025 2:23 PM EDT A Body Mass Index follow-up plan has been documented for the patient 04/24/2025 3:24 PM EDT documented as of this encounter Care Teams Forestry Technical Officer Relationship Specialty Start Date End Date Janet Chapman PA [address] [facility] [place] [address] PCP - General 06/23/21 Clarence Rubin MD [address] [place] [address] Surgeon Neurosurgery 06/23/21 Frankie Dalton MD [address] [place] [address] Surgeon Neurosurgery 10/13/21 Frankie Dalton MD [address] [place] [address] Surgeon Neurosurgery 12/15/21 Celi Murrell PA [address] [place] [address] Physician Sewer And Inspector Neurosurgery 04/01/22 Norberto West MD [address] [place] [address] Surgeon Neurosurgery 10/29/24 documented as of this encounter
--- OUTSIDE RECORDS SUMMARY | 2025-06-11 20:09 | XMS_ITS | Encounter Summary ---
Author Organization [facility] Address [address] [place] [address] Care Team Providers Care Web Operations Lead Name Role Phone Janet Chapman Primary Care Provider [phone] Clarence Rubin MD Unavailable Frankie Dalton MD Unavailable [phone] Frankie Dalton MD Unavailable [phone] Celi Murrell Unavailable [phone] Norberto West MD Unavailable [phone] Reason for Referral * Imaging (Urgent) - Authorized Specialty Diagnoses / Procedures Referred By Contac t Referred To Contact Diagnoses Status post lumbar spinal fusion Low back pain, unspecified back pain laterality, unspecified chronicity, unspecified whether sciatica present Bilateral lower extremity pain Lumbar radiculopathy Lumbar spondylosis Procedures MR Lumbar Spine wo IV Contrast Celi Murrell PA [address] [place] [address] Phone: tel: fax: Referral ID Status Reason Start Date Expiration Date V isits Requested Visits Authorized [id number] Authorized 05/23/2025 11/22/2026 1 1 Encounter Details Date Type Department Care Team (Late st Contact Info) Description 05/23/2025 Orders Only [facility] [address] [place] [address] Celi Murrell PA [id number] [place] [address] Status post lumbar spinal [...] Orthopaedic Surgery & Sports Medicine [address] [place] [address] Norberto West MD [address] [address] Scheduled Orders Name Type Priority [...] documented as of this encounter Care Teams Web Operations Lead Relationship Specialty Start Date End Date Janet Chapman PA [address] [facility] [place] [address] PCP - General 06/23/21 Clarence Rubin MD [address] [place] [address] Surgeon Neurosurgery 06/23/21 Frankie Dalton MD [address] [place] [address] Surgeon Neurosurgery 10/13/21 Frankie Dalton MD [address] [place] [address] Surgeon Neurosurgery 12/15/21 Celi Murrell PA [address] [place] [address] Physician Bun Icer Neurosurgery 04/01/22 Norberto West MD [address] [place] [address] Surgeon Neurosurgery 10/29/24 documented as of this encounter
--- OUTSIDE RECORDS SUMMARY | 2025-06-11 20:09 | XMS_ITS | Encounter Summary ---
Author Organization [facility] Address [address] [place] [address] Care Team Providers Care Clipper Machine Name Role Phone Janet Chapman Primary Care Provider [phone] Clarence Rubin MD Unavailable Frankie Dalton MD Unavailable [phone] Frankie Dalton MD Unavailable [phone] Celi Murrell Unavailable [phone] Norberto West MD Unavailable [phone] Reason for Visit * Reason Onset Date Comments HCN - Patient Message 05/24/2025 Encounter Details Date Type Department Care Team (Late st Contact Info) Description 05/24/2025 Telephone [facility] [address] [place] [address] Norberto West MD [address] [place] [address] HCN - Patient Message Social [...] her know that everything was fxd to [facility] this morning and they will contact her to schedule. She verbalized understanding. * Telephone Encounter - Eden Bonilla - 05/24/2025 8:58 AM EDT Patient Phone Message Reason for Call: [facility] told her MRI was to be done at [facility] has no orders at this time Where will MRI be scheduled ? Best contact number and optimal time of day to reach caller: Pt / [phone] Note: Please do not reply to this message. Follow-up communication and further actions as a result of this message need to be communicated with the patient directly, if the patient is not active onMyChart. If the patient is active on MyChart, they will receive notification of the communication/outcome via [email or web address]. documented in this encounter Plan of Treatment Upcoming Encounters Date Type Department Care Team (Late st Contact Info) Description 08/07/2025 12:40 PM EDT Office Visit [facility] Orthopaedic Surgery [facility] Sports Medicine [address] [place] [address] Norberto West MD [address] [place] [address] documented as of this encounter Visit Diagnoses Not on filedocumented in this encounter Additional Health Concerns Assessment Noted Time A fall risk assessment has been complete d for the patient 04/24/2025 2:23 PM EDT A Body Mass Index follow-up plan has been documented for the patient 04/24/2025 3:24 PM EDT documented as of this encounter Care Teams Clipper Machine Relationship Specialty Start Date End Date Janet Chapman PA [address] [place] [address] PCP - General 06/23/21 Clarence Rubin MD [address] [place] [address] Surgeon Neurosurgery 06/23/21 Frankie Dalton MD [address] [place] [address] Surgeon Neurosurgery 10/13/21 Frankie Dalton MD [address] [place] [address] Surgeon Neurosurgery 12/15/21 Celi Murrell PA [address] [place] [address] Physician Consumer Insight Manager Neurosurgery 04/01/22 Norberto West MD [address] [place] [address] Surgeon Neurosurgery 10/29/24 documented as of this encounter
--- OUTSIDE RECORDS SUMMARY | 2025-06-11 20:10 | XMS_ITS | Clinical Summary ---
Author Organization [facility] Address [address] [place] [address] Care Team Providers Care Product Safety Lead Name Role Phone Janet Chapman Primary Care Provider [phone] Clarence Rubin MD Unavailable Frankie Dalton MD Unavailable [phone] Frankie Dalton MD Unavailable [phone] Celi Murrell Unavailable [phone] Norberto West MD Unavailable [phone] Allergies Active Allergy Reactions Criticality Noted [...] (1 mg). 4 Active ergocalciferol 1.25 MG (51280 UT) capsule Takes on Sundays 4 Active [...] Encounters Date Type Department Care Team Description 05/31/2025 Orders Only [facility] [address], [address] [place] [address] Celi Murrell PA Status post lumbar spinal fusion (Primary Dx); Low back pain, unspecified back pain laterality, unspecified chronicity, unspecified whether sciatica present; Lumbar spondylosis; Bilateral lower extremity pain; Lumbar radiculopathy 05/27/2025 Orders Only External Location [address] [place] [address] Provider, External 05/24/2025 Telephone [facility] [address], [address] [place] [address] Norberto West MD HCN - Patient Message 05/23/2025 Orders Only [facility] [address], [address] [place] [address] Celi Murrell PA Status post lumbar spinal fusion (Primary Dx); Low back pain, unspecified back pain laterality, unspecified chronicity, unspecified whether sciatica present; Bilateral lower extremity pain; Lumbar radiculopathy; Lumbar spondylosis 04/24/2025 1:40 PM EDT Office Visit [facility] Orthopaedic Surgery & Sports Medicine [address] [place] [address] Norberto West MD S/P lumbar fusion (Primary Dx); Sacroiliac joint pain 04/24/2025 9:44 AM EDT - 04/24/2025 11:59 PM EDT Hospital Encounter [facility] Radiology [address] [place] [address] Status post lumbar spinal fusion Discharge Disposition: Home or Self Care 04/24/2025 Travel 04/23/2025 Orders Only [facility] [address] [place] [address] Norberto West MD Status post lumbar spinal fusion (Primary Dx) 04/18/2025 Travel 04/12/2025 Telephone [facility] [address] [place] [address] Norberto West MD from Last 3 Months Immunizations Immunization Administration Dates Next Due Influenza, injectable, quadrivalent 09/22/2017 Influenza, injectable, quadrivalent, preservativ e free 08/11/2021,09/29/2020 Influenza, seasonal, injectable, preservative fr ee 08/15/2018 TD (adult), 2 Lf tetanus tox oid, preservative free, adsorbed 12/29/1996 Family History Medical History Relation Name Comments Lupus Father's Sister Crohn's disease Maternal Grandmother Arthritis Mother SWETA Cancer Mother SWETA Depression Mother SWETA Diabetes Mother SWETA Hypertension [...] Orthopaedic Surgery & Sports Medicine [address] [place] [address] Norberto West MD [address] [place] [address] Health Maintenance Due Date Last Done Comments [...] 2023 [facility]-Zoster Vaccines (1 of 2) 2023 [id number] Vaccine ( season) 2024 [facility]-Influenza Vaccine (#1) [...] this topic Medical Devices Implanted Type Area Detective Device Identifier Shelf Expiration Date Model / Serial / Lot Tlif-C Ui 12mm 8deg 28/10 - [id number] Implanted:Qty : 1 on 11/08/2024 by Norberto West MD at [facility] Cage N/A: Spine Lumbar [id number] 03/23/2028 [id number] / / Lowell Viper2 Lordotic 45mm - [id number] Implanted:Qty : 2 on 11/08/2024 by Norberto West MD at [facility] Lowell N/A: Spine Lumbar [id number] 11/08/2025 [id number] / / Single Inner Setscrew - [id number] Implanted:Qty : 4 on 11/08/2024 by Norberto West MD at [facility] Screw N/A: Spine Lumbar [id number] 11/08/2025 [id number] / / Screw 7.0mm Viper Cfx Fen Xtab 50mm - [id number] Implanted:Qty : 4 on 11/08/2024 by Norberto West MD at [facility] Screw N/A: Spine Lumbar [id number] 11/08/2025 [id number] / / Tissue Vivigen Formable 5.4cc Med Pk/4 - [id number] - [id number] Implanted:Qty : 1 on 11/08/2024 by Norberto West MD at [facility] Spine Lumbar [id number] 10/04/2025 [id number] / [id number] / [id number] Procedures Procedure Name Priority Date/Time Associated Diagnosis [...] Patient has decision-making capacity? Yes Care Teams Product Safety Lead Relationship Specialty Start Date End Date Janet Chapman PA [address] [facility] [place] [address] PCP - General 06/23/21 Clarence Rubin MD [address] [place] [address] Surgeon Neurosurgery 06/23/21 Frankie Dalton MD [address] [place] [address] Surgeon Neurosurgery 10/13/21 Frankie Dalton MD [address] [place] [address] Surgeon Neurosurgery 12/15/21 Celi Murrell PA [address] [place] [address] Physician Wood Finisher Neurosurgery 04/01/22 Norberto West MD [address] [place] [address] Surgeon Neurosurgery 10/29/24
--- NOTE | 2025-06-11 20:24 | ED_ITS ---
<Statement entered by Kev Whyte MD - 06/12/25 13:42> I was consulted by the KRISSY, and we discussed the complexity of the problems being addressed. I approve the treatment and management plan for this patient's care in the emergency department, thus performing a substantive portion of the medical decision making. Kev Whyte MD Discharge Plan Disposition Patient Disposition: Home, Self-Care Condition: Good Prescriptions Prescriptions: No Action cholecalciferol (vitamin D3) 50 mcg (2,000 unit) capsule 50 mcg PO DIRECTED lidocaine 5 % adhesive patch,medicated 1 patch topical DAILY Qty: 15 0RF Rx Instructions: leave on most painful area for up to 12 hrs oxybutynin chloride 10 mg tablet extended release 24hr 10 mg PO DAILY Qty: 90 0RF estradiol [Estrace] 0.01 % (0.1 mg/gram) cream 1 appful vaginal DAILY Qty: 42.5 2RF Rx Instructions: Using finger technique daily for 14 days and then 3 times a week thereafter. cyclobenzaprine 5 mg tablet 5 mg PO TID PRN (Reason: muscle spasm) Qty: 20 0RF tramadol 25 mg tablet 25 mg PO Q6H PRN lisinopril 10 mg tablet See Rx Instructions .ROUTE .COMPLEX Qty: 30 0RF Dose Instruction: TAKE 1 TABLET BY MOUTH ONCE DAILY FOR BLOOD PRESSURE Rx Instructions: TAKE 1 TABLET BY MOUTH ONCE DAILY FOR BLOOD PRESSURE atorvastatin 20 mg tablet 20 mg PO HS escitalopram oxalate 20 mg tablet 20 mg PO DAILY Rexulti 1 mg tablet 1 mg PO DAILY albuterol sulfate 90 mcg/actuation HFA aerosol inhaler 2 inh inhalation Q6H PRN (Reason: shortness of breath or wheezing) Qty: 6.7 0RF Ozempic 0.25 mg or 0.5 mg (2 mg/3 mL) pen injector 0.25 mg SQ WEEKLY Referrals Follow up/Referrals: Janet Chapman PA [Primary Care Provider, Medical] - See instructions Activity Restrictions/Add. Instructions Additional Instructions/Restrictions: Please follow-up with your family doctor in the upcoming days/weeks, please continue take all your medication as prescribed, please return to the emergency department with any worsening signs or symptoms to include worsening episodes of hyperglycemia or any abdominal pain nausea or vomiting. Clinical Impressions Clinical Impression: Hyperglycemia due to type 2 diabetes mellitus Instructions Patient Instructions: DI for Hyperglycemia -- Adult Print Language Print Language: Polish Discharge ED Provider: Kev Whyte General Adult HPI General Chief complaint: Hyper/Hypoglycemia Stated complaint: Diabetic; 408 Gluecose; High BP Time Seen by Provider: 06/11/25 20:24 Mode of Arrival: Ambulatory Source of Information: Patient Limitations: No Limitations History of Present Illness HPI narrative: 49-year-old female presents the emergency department with concern of hyperglycemia, noted on her stick at home was around 408 , she states is the highest they have been, patient admits to subjective fever and chills, she states that she is fighting off a viral infection , she states she saw her eye doctor yesterday and was diagnosed with herpes of the eye , taking oral valacyclovir as prescribed, patient denies any chest pain shortness of breath, no abdominal pain does admit to some nausea today, denies any vomiting, denies any constipation diarrhea, melena hematochezia hematemesis or urinary symptomatology, patient is a former smoker denies any alcohol or drug use, initial triage vitals are unremarkable, other past medical history is consistent with ongoing rotator cuff tendinopathy of the left patient currently in a sling, OAB, T2DM, [id number], patient is on GLP-1 agonist, just disease of the spine, osteoarthritis, IBS, diabetic polyneuropathy, hypertension, fibromyalgia, hyperlipidemia, vitamin D deficiency, MDD. Please note that above description of symptoms, in this electronic medical record under categorization of recalled from ER triage doctor by RN are reflective of an initial nursing assessment, however, is not reflective of my full history and physical exam that was personally taken and clarified. Consequentially, this preceding description of symptoms, which may include the patient's categorized chief complaint in the EMR, do not reflect my personal clinical impression, and the ultimate description of history of present illness and patient stated complaints should be deferred to this section of the note. Unless stated otherwise or congruent with this section of the note, additional signs, symptoms, or incongruence should be interpreted as inaccurate with my clinical impression. Onset (ago): hour(s) Related Data Home Medications ?Medication ?Instructions ?Recorded ?Confirmed atorvastatin 20 mg tablet 20 mg PO HS 06/16/24 5 brexpiprazole 1 mg tablet (Rexulti) 1 mg PO DAILY 05/2506/04/25 escitalopram oxalate 20 mg tablet 20 mg PO DAILY 06/1606/04/25 semaglutide 0.25 mg or 0.5 mg (2 0.25 mg SQ WEEKLY 06/04/25 mg/3 mL) subcutaneous pen injector (Ozempic) cholecalciferol (vitamin D3) 50 50 mcg PO DIRECTED SUPPLIMENT 01/21/25 06/04/25 mcg (2,000 unit) capsule tramadol 25 mg tablet 25 mg PO Q6H PRN 06/04/25 Previous Rx's ?Medication ?Instructions ?Recorded albuterol sulfate 90 mcg/actuation 2 inh inhalation Q6 H PRN shortness 06/16/24 aerosol inhaler of breath or wheezing #6.7 g rocío lidocaine 5 % topical patch 1 patch topical DAILY #15 ea 01/21/25 lisinopril 10 mg tablet See Rx Instructions .Route 0 02/01/25 .COMPLEX #30 tabs estradiol 0.01% (0.1 mg/gram) 1 appful vaginal DAILY # 42.5 grams 02/25/25 vaginal cream (Estrace) oxybutynin chloride 10 mg 10 mg PO DAILY #90 tabs 05/0 03/17 tablet,extended release 24 hr cyclobenzaprine 5 mg tablet 5 mg PO TID PRN muscle spa sm #20 03/18/25 tabs Allergies Allergy/AdvReac Type Severity Reaction Status Date / Time morphine Allergy Abdominal Verified 06/04/25 14:21 Pain cariprazine (From Vraylar) AdvReac Intermediate tics Verified 06/04/25 14:21 Opioids - Morphine Analogues AdvReac Intermediate Vomiting Verified 06/04/25 14:21 acetaminophen (From Lortab) AdvReac Mild Vomiting Verified 06/04/25 14:21 hydrocodone (From Lortab) AdvReac Unknown Verified 06/04/25 14:21 allergy reaction metformin AdvReac Vomiting Verified 06/04/25 14:21 [facility] Disclaimer: The information contained in this section may have been updated after the patient was seen, as this information can be updated by other users. Medical History Sinusitis Nasal congestion Piriformis syndrome Back pain Left otitis media Viral respiratory illness Otitis media H. pylori infection Diarrhea Myalgia Chills Fever IBS (irritable bowel syndrome) Asthma Mouth ulcer Neuroforaminal stenosis of lumbar spine Herniation of lumbar intervertebral disc with radiculopathy Radicular pain of both lower extremities Lumbar canal stenosis Diabetes Neuropathy Low back pain History of rheumatic fever Urinary incontinence Hyperlipidemia Fibromyalgia Hypertension Perioral dermatitis Vitamin D deficiency (~08/19/18) Hand pain, left Depression Surgical History History of lumbar fusion History of section History of hand surgery [facility] joint bilateral History of hysterectomy partial H/O lumbar discectomy Family History Other Diabetes FHx: mental illness Family history of cancer Hyperlipidemia Hypertension Social History Smoking Status: Former smoker tobacco type: cigarettes packs per day: 1 second hand exposure: Yes alcohol intake: current alcohol intake frequency: holidays/special occasions only substance use type: denies use current occupational status: unemployed Travel in the last 8 weeks?: None household members: spouse housing: house current occupational exposures/hazards: No caffeine: Yes Have you lived/traveled outside US in past 30 days?: No Contact w/someone who lives/traveled outside US past 30 days?: No Exposure to someone with infectious disease in past 14 days?: No Do you have a fever (greater than 100.4 F or 38 C)?: No Have you tested positive for COVID-19?: No Exposed to someone with COVID-19 in past 14 days?: No Do you have a sore throat?: No Do you have a cough?: No Do you have any weakness?: No Do you have any diarrhea?: No Are you experiencing any unusual bleeding?: No Do you have any muscle aches/pain?: No Do you have any abdominal pain?: No Are you experiencing loss of taste or smell?: No Other Medical History Have you received the Flu Vaccine for this season: Yes Have you received the Pneumonia Vaccine: No ROS Obtained: Yes All systems reviewed & no additional complaints except as documented Physical Exam General General appearance: alert and in no apparent distress Head Head exam: atraumatic and normocephalic Eye Eye exam: Present PERRL and EOMI ENT ENT exam: Present mucous membranes moist Neck Neck exam: Present normal inspection Chest Chest inspection: Present normal inspection and symmetric chest wall rise Respiratory Respiratory exam: Present normal lung sounds bilaterally; Absent respiratory distress, wheezes or stridor Cardiovascular Cardiovascular exam: Present regular rate and normal rhythm Abdominal Exam Abdominal exam: Present soft; Absent tenderness, guarding or rebound Extremities Exam Extremities exam: Present normal inspection and other (Left shoulder examination deferred due to patient in sling) Neurological Exam Neurological exam: Present alert and oriented X3 Psychiatric Psychiatric exam: Present normal affect Skin Skin exam: Present warm and dry Medical Decision Making Medical Records Medical records reviewed: Yes I reviewed the patient's medical records. Screening: Per USPSTF and CDC recommendations, given the prevalence of disease in our region, it is our hospital?s policy to screen for HIV and viral Hepatitis for all patients aged 18 and over and those with ongoing risk factors. Wali Inquiry Pt receiving controlled substance: No Wali was queried for this patient: No Vital Signs: 06/11/25 20:19 06/11/25 20:29 06/11/25 21:00 Temperature 98.8 F 98.8 F Temperature Source Oral Oral Pulse Rate 88 94 H Pulse Rate [Left Radial] 88 Respiratory Rate 21 21 Blood Pressure 163/81 H 176/96 H Blood Pressure [Right Arm] 163/81 H Blood Pressure Mean Blood Pressure Mean [Right Arm] 108 Blood Pressure Position [Right Arm] Sitting 02 Sat by Pulse Oximetry 98 98 98 Oxygen Delivery Method Room Air Room Air 06/11/25 21:30 06/11/25 22:00 06/11/25 23:12 Temperature Temperature Source Pulse Rate 88 85 Pulse Rate [Left Radial] Respiratory Rate Blood Pressure 154/74 H 177/85 H 125/75 Blood Pressure [Right Arm] Blood Pressure Mean 91 Blood Pressure Mean [Right Arm] Blood Pressure Position [Right Arm] 02 Sat by Pulse Oximetry 97 94 L Oxygen Delivery Method Lab Data Lab results reviewed: Yes I reviewed the patient's lab results. Lab Results 06/11/25 20:52: WBC 10.5, RBC 4.21, Hgb 12.9, Hct 37.8, MCV 89.8, MCH 30.6, MCHC 34.1, RDW 11.9, Plt Count 344, MPV 9.8, Neut % (Auto) 60.7, Lymph % (Auto) 30.7, [place] % (Auto) 5.7, Eos % (Auto) 1.9, Baso % (Auto) 0.7, Neut # (Auto) 6.4, Lymph # (Auto) 3.2, [place] # (Auto) 0.6, Eos # (Auto) 0.2, Baso # (Auto) 0.1, VBG pH 7.43 H, VBG pCO2 36.5, VBG pO2 61.7 H, VBG HCO3 23.5, VBG Total CO2 24.6, VBG O2 Saturation 91.6 H, VBG Base Excess -0.8, VBG Lactic Acid 2.1 H, Sodium 131 L, Potassium 4.6, Chloride 97 L, Carbon Dioxide 25, Anion Gap 13.6, BUN 12, Creatinine 0.70, Estimated Creat Clear 165, Estimated GFR 88, Est GFR ( Amer) 107, Glucose 454 H*, Lactate 2.2 H, Calcium 9.0, Magnesium 1.7, Total Bilirubin 0.4, AST 75 H, ALT 122 H, Alkaline Phosphatase 127 H, Troponin I < 0.01, Total Protein 7.6, Albumin 4.2, Globulin 3.4 H, Albumin/Globulin Ratio 1.2, Lipase 443 H, Acetone Level None detected 06/11/25 20:52 06/11/25 20:52 Orders (Tests/Meds): ED MEDICATIONS Discontinued Medications Generic Name Dose Route Start Last Admin Trade Name Freq PRN Reason Stop Dose Admin Lactated Ringer's 1,000 mls @ 999 mls/hr 06/11/25 20:51 06/11/25 22:24 Lactated Ringer's 1000 Ml Bag IV 06/11/25 21:51 Infused .Q1H1M ONE Infusion Insulin Human Regular 2 unit 06/11/25 22:29 06/11/25 22:33 Insulin Human Regular 100 Units/Ml 10ml Vial IV 06/11/25 22:30 2 unit ONCE ONE Administration ORDERS Category Date Time Status XR chest portable Stat Exams 06/11/25 20:44 Completed Acetone, Serum (Rapid) Stat Lab 06/11/25 20:52 Completed Complete Blood Count Auto Diff Stat Lab 06/11/25 20:52 Completed Comprehensive Metabolic Panel Stat Lab 06/11/25 20:52 Completed Lactic Acid Stat Lab 06/11/25 20:52 Completed Lipase Stat Lab 06/11/25 20:52 Completed Magnesium Stat Lab 06/11/25 20:52 Completed Troponin I Q3H Lab 06/11/25 23:45 Ordered Troponin I Q3H Lab 06/12/25 02:45 Ordered Troponin I Stat Lab 06/11/25 20:52 Completed Urinalysis and Microscopic Stat Lab 06/11/25 23:00 Received VBG [Venous Blood Gas] Stat RT 06/11/25 20:52 Completed Medical Decision Narrative: 49-year-old female presents emergency department concern for hyperglycemia, POC glucose in the 400s, differential diagnosis include but not limited to HHS, DKA, nonketotic hyperglycemia, infection, electrolyte disturbance, cardiac arrhythmia, hypovolemia among others I discussed this patient's case with the attending physician Will obtain basic laboratory studies, lactic acid level, EKG, acetone level, chest x-ray, lipase level, pneumo, troponin, UA, VBG. CBC is unremarkable CMP is noted for mild hyponatremia 131, minimal lactic acidosis elevation at 2.2, hyperglycemia at 454, AST is elevated at 75, ALT is elevated 122, ALP is elevated at 127, troponin is within normal limits at less than 0.01, lipase elevated 443, acetone level shows undetected I reviewed the patient's chest x-ray along the corresponding radiologic report, no radiographically acute cardiopulmonary process VBG is notable for normal pH, PO2 is mildly elevated at 61.7, bicarb within normal limits, CO2 within normal limits, venous lactic acid levels minimally evaded at 2.1. Will give 6 units of IV insulin for hyperglycemia. POC glucose prior to IV insulin administration was 372, will change dosing to 2 mg IV insulin. I discussed this patient's case with the attending physician , at shift change he will be assuming the patient's care/workup, patient's disposition is pending repeat glucose after IV insulin administration POC glucose is trending downward at 366, patient is comfortably resting at the bedside, no acute complaints, hemodynamically stable at her time in the emergency department, recommend tight hyperglycemic control, follow-up with PCP, repeat A1c, could benefit from adding additional antihyperglycemic regimen, patient has no abdominal pain no nausea no vomiting, abdominal tenderness, pancreatitis less likely, could be in the setting of viral illness versus recent GLP-1 administration. Patient was given strict ED return precautions, discussed all results with the patient family at the bedside. Patient famine agreed with current treatment plan/discharge plan. Critical Care Critical Care Time Critical Care Time: No
--- NOTE | 2025-06-11 20:44 | XR_ITS ---
PROCEDURE INFORMATION: Exam: XR Chest Exam date and time: 06/11/2025 9:08 PM Age: 49 years old Clinical indication: Shortness of breath; Additional info: SOA TECHNIQUE: Imaging protocol: Radiologic exam of the chest. Views: 1 view. Total images: 1 COMPARISON: CR XR CHEST 2V 06/18/2024 1:48 PM FINDINGS: Lungs: Unremarkable. No consolidation. No pulmonary vascular congestion or edema. Pleural spaces: Unremarkable. No pleural effusion. No pneumothorax. Heart/Mediastinum: Unremarkable. No cardiomegaly. No mediastinal widening or hilar enlargement. Bones/joints: Unremarkable. IMPRESSION: No radiographically acute cardiopulmonary process.
[2025-06-11 20:58] LABS: VBG HCO3 23.5 mmol/L (23-30); VBG PCO2 36.5 mmol/L (35-51); VBG PH 7.43 mmol/L (7.31-7.41); VBG PO2 61.7 mmol/L (28-40)
[2025-06-11 21:00] LABS: Lactate Venous 2.1 mmol/L (0.4-2.0)
[2025-06-11 21:01] LABS: Hematocrit 37.8 % (37.0-47.0); Hemoglobin 12.9 g/dL (12.2-16.2); Immature Granulocytes % 0.3 %; Mean Corpuscular HGB Conc 34.1 g/dL (31.8-35.4); Mean Corpuscular Hemoglobin 30.6 pg (27.0-31.2); Mean Corpuscular Volume 89.8 fl (81-99); Nucleated Red Blood Cells % 0 %; Platelet Count 344 K/mm3 (142-424); Red Blood Count 4.21 M/mm3 (4.20-5.40); Red Cell Distribution Width-SD 38.8 fL; White Blood Count 10.5 K/mm3 (4.8-10.8)
[2025-06-11 21:09] LABS: Albumin Level 4.2 g/dl (3.5-5.0); Chloride 97 mmol/L (98-107); Sodium 131 mmol/L (136-145)
[2025-06-11 21:10] LABS: Potassium 4.6 mmoL/L (3.5-5.1)
[2025-06-11] MEDS: LACTATED RINGERS 1000ML 1,000 ML 999 ML IV (21:10)
[2025-06-11 21:12] LABS: Alanine Aminotransferase 122 U/L (12-78); Albumin/Globulin Ratio 1.2 (1.1-1.8); Alkaline Phosphatase 127 U/L (38-126); Anion Gap 13.6 mEq/L (5-15); Aspartate Amino Transferase 75 U/L (14-36); Bilirubin,Total 0.4 mg/dl (0.2-1.3); Blood Urea Nitrogen 12 mg/dl (7-17); Carbon Dioxide 25 mmol/L (22.0-30.0); Creatinine Clearance Estimated 165 mL/min (50-200); Creatinine,Serum 0.70 mg/dl (0.52-1.04); Estimated Glomerular Filt Rate 88 ml/min (>60); GFR (African American) 107 ML/MIN (>60); Globulin 3.4 g/dL (1.3-3.2); Total Protein,Serum 7.6 g/dl (6.3-8.2)
[2025-06-11 21:13] LABS: Calcium 9.0 mg/dl (8.4-10.2)
[2025-06-11 21:17] LABS: Lipase 443 U/L (23-300); Magnesium 1.7 mg/dl (1.6-2.3)
[2025-06-11 21:23] LABS: Glucose 454 mg/dl (74-100)
[2025-06-11 21:24] LABS: Acetone, Serum (Rapid) None Detected (None Detect)
--- NOTE | 2025-06-11 21:24 | PC.NURSE ---
critical called from MD chandler notified
[2025-06-11 21:26] LABS: Troponin I < 0.01 ng/ml (0.00-0.034)
--- NOTE | 2025-06-11 21:48 | ECG_ITS ---
APPROVED REPORT Exam: Resting ECG HR:87 bpm ECG Measurements Heart Rate 87 AXES ND 164 P 65 QRSd 85 QRS 47 QT 365 T 44 QTc 409 Conclusion SINUS RHYTHM LOW QRS VOLTAGE IN PRECORDIAL LEADS [QRS DEFLECTION < 1.0 mV IN CHEST LEADS] BORDERLINE ECG UNCONFIRMED REPORT Normal sinus rhythm. No ST elevation or depression. QTc normal at 409 Electronically signed by : CIRO TREADWELL, 06/12/2025 00:24:59
[2025-06-11] MEDS: INSULIN HUMAN REGULAR 100 UNITS/ML 10ML VIAL 2 UNIT IV (22:33)
[2025-06-11 23:17] LABS: Microscopic, Urine URINE MICROSCOPIC (MICROSCOPIC)
[2025-06-11 23:29] LABS: Bilirubin,Urine Negative (Negative); Color,Urine YELLOW (Yellow); Glucose,Urine (UA) 3+ (Negative); Ketones,Urine Negative (Negative); Leukocyte Esterase,Urine Negative (Negative); PH,Urine 6.0 (5.0-8.5); Protein,Urine Negative (Negative); Specific Gravity, Urine 1.010 (1.005-1.030); Urobilinogen,Urine 0.2 EU/dl (0.2)
[2025-06-11 23:57] LABS: Bacteria,Urine 1+ /lpf; WBC,Urine Occasional #/hpf (0-3)
== END 2025-06-11 23:39 | disposition home or self-care (01) ==
PROVIDERS: Physician Assistant; Emergency Provider Student in an Organized Health Care Education/Training Program; PCP Physician Assistant
DX: E11.65 Type 2 diabetes mellitus with hyperglycemia (principal); R74.02 Elevation of levels of lactic acid dehydrogenase [LDH]; E87.1 Hypo-osmolality and hyponatremia; R74.8 Abnormal levels of other serum enzymes; Z87.891 Personal history of nicotine dependence; Z79.85 Long-term (current) use of injectable non-insulin antidiabetic drugs
CPT/HCPCS: 71045; 80053; 81001; 82009; 82803; 83605; 83690; 83735; 84484; 85025; 93005; 96360; 99285; J7120

== ENCOUNTER 2025-06-14 14:55 | Outpatient (CLI) | payer OTHER, SELFPAY ==
--- OUTSIDE RECORDS SUMMARY | 2025-04-24 09:44 | XMS_ITS | Encounter Summary ---
Author Organization [facility] Address [address] [place] [address] Care Team Providers Care Hot Blaster Name Role Phone Janet Chapman Primary Care Provider [phone] Clarence Rubin MD Unavailable Frankie Dalton MD Unavailable [phone] Frankie Dalton MD Unavailable [phone] Celi Murrell Unavailable [phone] Norberto West MD Unavailable [phone] Encounter Details Date Type Department Care Team (Latest Contact Info) Description 04/24/2025 9:44 AM EDT - 04/24/2025 11:59 PM EDT [facility] En[facility] [address] [place] [address] Status post lumbar spinal fusion Discharge Disposition: [...] day as needed. 04/22/2025 ergocalciferol 1.25 MG (34386 UT) capsule Takes on Sundays02/23/2024 escitalopram (Lexapro) [...] Description 08/07/2025 12:40 PM EDT Office Visit [facility] Orthopaedic Surgery & Sports Medicine [address], [address] [place] [address] Norberto West MD [address] [place] [address] documented as of this encounter [...] documented as of this encounter Care Teams Hot Blaster Relationship Specialty Start Date End Date Janet Chapman PA [address] [place] [address] PCP - General 06/23/21 Clarence Rubin MD [address] [place] [address] Surgeon Neurosurgery 06/23/21 Frankie Dalton MD [address] [place] [address] Surgeon Neurosurgery 10/13/21 Frankie Dalton MD [address] [place] [address] Surgeon Neurosurgery 12/15/21 Celi Murrell PA [address] [place] [address] Physician Pharmacy Informatics Specialist Neurosurgery 04/01/22 Norberto West MD [address] [place] [address] Surgeon Neurosurgery 10/29/24 documented as of this encounter
--- OUTSIDE RECORDS SUMMARY | 2025-04-24 13:40 | XMS_ITS | Encounter Summary ---
Author Organization [facility] Address [address] [place] [address] Care Team Providers Care Glacing Machine Tender Name Role Phone Janet Chapman Primary Care Provider [phone] Clarence Rubin MD Unavailable Frankie Dalton MD Unavailable [phone] Frankie Dalton MD Unavailable [phone] Celi Winter Unavailable [phone] Norberto West MD Unavailable [phone] Encounter Details Date Type Department Care Team (Late st Contact Info) Description 04/24/2025 1:40 PM EDT Office Visit [place] [facility] [address] [place] [address] Norberto West MD [address] [place] [address] S/P lumbar fusion (Primary Dx); [...] coordination of care. I spent >50% in daph-xo-ftja communication with the patient over the diagnosis, treatment options and plan. Norberto West MD MS Senior Mechanical Designer of Neurosurgery Complex and Minimally Invasive Spine Surgery [address] [place] [address] [place], [address] Addendum 05/23/2025: Physical therapy notes have been [...] Description 08/07/2025 12:40 PM EDT Office Visit [facility] Orthopaedic Surgery & Sports Medicine [address] [place] [address] Norberto West MD [address] [place] [address] documented as of this encounter [...] documented as of this encounter Care Teams Glacing Machine Tender Relationship Specialty Start Date End Date Janet Chapman PA [address] [place] [address] PCP - General 06/23/21 Clarence Rubin MD [address] [place] [address] Surgeon Neurosurgery 06/23/21 Frankie Dalton MD [address] [place] [address] Surgeon Neurosurgery 10/13/21 Frankie Dalton MD [address] [place] [address] Surgeon Neurosurgery 12/15/21 Celi Winter PA [address] [place] [address] Physician Sterile Processing Manager Neurosurgery 04/01/22 Norberto West MD [address] [facility] [address] [place] [address] Surgeon Neurosurgery 10/29/24 documented as of this encounter
--- OUTSIDE RECORDS SUMMARY | 2025-06-14 14:56 | XMS_ITS | Encounter Summary ---
Author Organization [facility] Address [address] [place] [address] Care Team Providers Care Metal Pourer Name Role Phone Janet Chapman Primary Care Provider [phone] Clarence Rubin MD Unavailable Frankie Dalton MD Unavailable [phone] Frankie Dalton MD Unavailable [phone] Celi Murrell Unavailable [phone] Norberto West MD Unavailable [phone] Encounter Details Date Type Department Care Team (Late Contact Info) Description 05/27/2025 Orders Only External Location [address] [place] [address] Provider, External Social History Tobacco Use Types [...] Orthopaedic Surgery & Sports Medicine [address] [place] [address] Norberto West MD [address] [place] [address] documented as of this [...] documented as of this encounter Care Teams Metal Pourer Relationship Specialty Start Date End Date Janet Chapman PA [address] [place] [address] PCP - General 06/23/21 Clarence Rubin MD [address] [place] [address] Surgeon Neurosurgery 06/23/21 Frankie Dalton MD [address] [place] [address] Surgeon Neurosurgery 10/13/21 Frankie Dalton MD [address] [place] [address] Surgeon Neurosurgery 12/15/21 Celi Murrell PA [address] [facility] [place] [address] Physician Electric Motor Repairman Neurosurgery 04/01/22 Norberto West MD [address] [facility] [place] [address] Surgeon Neurosurgery 10/29/24 documented as of this encounter
--- OUTSIDE RECORDS SUMMARY | 2025-06-14 14:56 | XMS_ITS | Clinical Summary ---
Author Organization [facility] Address [address] [place] [address] Care Team Providers Care Ironworker Name Role Phone Janet Chapman Primary Care Provider [phone] Allergies No known active allergies Medications escitalopram [...] VACCINE 07/24/2025 08/15/2018, 08/15/2018 Insurance [employer] [id number] [facility] Care Teams Ironworker Relationship Specialty Start Date End Date Janet Chapman PA PCP - General Physician Ore Bridge Operator 07/14/21
--- OUTSIDE RECORDS SUMMARY | 2025-06-14 14:56 | XMS_ITS | Encounter Summary ---
Author Organization [facility] Address [address] [place] [address] Care Team Providers Care Rn Ccu Name Role Phone Janet Chapman Primary Care Provider [phone] Clarence Rubin MD Unavailable Frankie Dalton MD Unavailable [phone] Frankie Dalton MD Unavailable [phone] Celi Murrell Unavailable [phone] Norberto West MD Unavailable [phone] Reason for Referral * Imaging (Urgent) - Authorized Specialty Diagnoses / Procedures Referred By Contac t Referred To Contact Diagnoses Status post lumbar spinal fusion Low back pain, unspecified back pain laterality, unspecified chronicity, unspecified whether sciatica present Bilateral lower extremity pain Lumbar radiculopathy Lumbar spondylosis Procedures MR Lumbar Spine wo IV Contrast Celi Murrell PA [address] [place] [address] Phone: tel: fax: Referral ID Status Reason Start Date Expiration Date V isits Requested Visits Authorized [id number] Authorized 05/23/2025 11/22/2026 1 1 Encounter Details Date Type Department Care Team (Late st Contact Info) Description 05/23/2025 Orders Only [facility] [address] [place] [address] Celi Murrell PA [id number] [place] [address] Status post lumbar spinal fusion [...] Description 08/07/2025 12:40 PM EDT Office Visit [facility] Orthopaedic Surgery & Sports Medicine [address] [place] [address] Norberto West MD [address] [address] Scheduled Orders Name Type Priority [...] documented as of this encounter Care Teams Rn Ccu Relationship Specialty Start Date End Date Janet Chapman PA [address] [facility] [address] PCP - General 06/23/21 Clarence Rubin MD [address] [place] [address] Surgeon Neurosurgery 06/23/21 Frankie Dalton MD [address] [place] [address] Surgeon Neurosurgery 10/13/21 Frankie Dalton MD [address] [place] [address] Surgeon Neurosurgery 12/15/21 Celi Murrell PA [address] [place] [address] Physician Sheep Farm Manager Neurosurgery 04/01/22 Norberto West MD [address] [place] [address] Surgeon Neurosurgery 10/29/24 documented as of this encounter
--- OUTSIDE RECORDS SUMMARY | 2025-06-14 14:56 | XMS_ITS | Encounter Summary ---
Author Organization [facility] Address [address] [place] [address] Care Team Providers Care Residential Instructor Name Role Phone Janet Chapman Primary Care Provider [phone] Clarence Rubin MD Unavailable Frankie Dalton MD Unavailable [phone] Frankie Dalton MD Unavailable [phone] Celi Murrell Unavailable [phone] Norberto West MD Unavailable [phone] Reason for Referral * Imaging (Urgent) - Authorized Specialty Diagnoses / Procedures Referred By Contac t Referred To Contact Diagnoses Status post lumbar spinal fusion Low back pain, unspecified back pain laterality, unspecified chronicity, unspecified whether sciatica present Lumbar spondylosis Bilateral lower extremity pain Lumbar radiculopathy Procedures CT Lumbar Spine wo IV Contrast Celi Murrell PA [address] [place] [address] Phone: tel: fax: Referral ID Status Reason Start Date Expiration Date V isits Requested Visits Authorized [id number] Authorized 05/31/2025 11/30/2026 1 1 Encounter Details Date Type Department Care Team (Late st Contact Info) Description 05/31/2025 Orders Only [facility] [address] [place] [address] Celi Murrell PA [id number] [place] [address] Status post lumbar spinal fusion [...] Description 08/07/2025 12:40 PM EDT Office Visit [facility] Orthopaedic Surgery & Sports Medicine [address] [place] [address] Norberto West MD [address] [address] Scheduled Orders Name Type Priority [...] documented as of this encounter Care Teams Residential Instructor Relationship Specialty Start Date End Date Janet Chapman PA [address] [facility] [place] [address] PCP - General 06/23/21 Clarence Rubin MD [address] [place] [address] Surgeon Neurosurgery 06/23/21 Frankie Dalton MD [address] [place] [address] Surgeon Neurosurgery 10/13/21 Frankie Dalton MD [address] [place] [address] Surgeon Neurosurgery 12/15/21 Celi Murrell PA [address] [place] [address] Physician Pantry Cook Neurosurgery 04/01/22 Norberto West MD [address] [place] [address] Surgeon Neurosurgery 10/29/24 documented as of this encounter
--- OUTSIDE RECORDS SUMMARY | 2025-06-14 14:56 | XMS_ITS | Encounter Summary ---
Author Organization [facility] Address [address] [place] [address] Care Team Providers Care Facility Environmental Technician Name Role Phone Janet Chapman Primary Care Provider [phone] Clarence Rubin MD Unavailable Frankie Dalton MD Unavailable Frankie Dalton MD Unavailable [phone] Celi Murrell Unavailable [phone] Norberto West MD Unavailable [phone] Encounter Details Date Type Department Care Team (Late st Contact Info) Description 04/23/2025 Orders Only [place] [facility] [address], [address] [place] [address] Norberto West MD [address] [place] [address] Status post lumbar spinal fusion [...] 08/07/2025 12:40 PM EDT Office Visit [facility] Orthopaedic Surgery & Sports Medicine [address], [address] [place] [address] Norberto West MD [address] [place] [address] documented as of this encounter [...] documented as of this encounter Care Teams Facility Environmental Technician Relationship Specialty Start Date End Date Janet Chapman PA [address] [place] [address] PCP - General 06/23/21 Clarence Rubin MD [address] [place] [address] Surgeon Neurosurgery 06/23/21 Frankie Dalton MD [address] [place] [address] Surgeon Neurosurgery 10/13/21 Frankie Dalton MD [address] [place] [address] Surgeon Neurosurgery 12/15/21 Celi Murrell PA [address] [place] [address] Physician Rn Enterostomal Neurosurgery 04/01/22 Norberto West MD [address] [place] [address] Surgeon Neurosurgery 10/29/24 documented as of this encounter
--- OUTSIDE RECORDS SUMMARY | 2025-06-14 14:56 | XMS_ITS | Encounter Summary ---
Author Organization [facility] Address [address] [place] [address] Care Team Providers Care Video Production Coordinator Name Role Phone Janet Chapman Primary Care Provider [phone] Clarence Rubin MD Unavailable Frankie Dalton MD Unavailable Frankei Dalton MD Unavailable [phone] Celi Murrell Unavailable [phone] Norberto West MD Unavailable [phone] Encounter Details Date Type Department Care Team (Late st Contact Info) Description 04/12/2025 Telephone [place] [facility] [address], 1[address] [place] [address] Norberto West MD [address] [place] [address] Social History Tobacco Use Types [...] optimal time of day to reach caller: [phone] Note: Please do not reply to this message. Follow-up communication and further actions as a result of this message need to be communicated with the patient directly, if the patient is not active onMyChart. If the patient is active on MyChart, they will receive notification of the communication/outcome via [place] Sain[place]. documented in this encounter Plan of Treatment Upcoming Encounters Date Type Department Care Team (Late st Contact Info) Description 08/07/2025 12:40 PM EDT Office Visit [facility] Orthopaedic Surgery & Sports Medicine [address], [address] [place] [address] Norberto West MD [id number] [place] [address] documented as of this encounter Visit Diagnoses Not on filedocumented in this encounter Additional Health Concerns Assessment Noted Time A fall risk assessment has been complete d for the patient 02/06/2025 3:12 PM EDT A Body Mass Index follow-up plan has been documented for the patient 02/06/2025 6:10 PM EDT documented as of this encounter Care Teams Video Production Coordinator Relationship Specialty Start Date End Date Janet Chapman PA [address] [place] [address] PCP - General 06/23/21 Clarence Rubin MD [id number] [place] [address] Surgeon Neurosurgery 06/23/21 Frankie Dalton MD [address] [place] [address] Surgeon Neurosurgery 10/13/21 Frankie Dalton MD [address] [place] [address] Surgeon Neurosurgery 12/15/21 Celi Murrell PA [address] [place] [address] Physician Fish And Wildlife Warden Neurosurgery 04/01/22 Norberto West MD [address] [place] [address] Surgeon Neurosurgery 10/29/24 documented as of this encounter
--- OUTSIDE RECORDS SUMMARY | 2025-06-14 14:56 | XMS_ITS | Encounter Summary ---
Author Organization [facility] Address [address] [place] [address] Care Team Providers Care Agricultural Plow Operator Name Role Phone Janet Chapman Primary Care Provider [phone] Clarence Rubin MD Unavailable Frankie Dalton MD Unavailable [phone] Frankie Dalton MD Unavailable [phone] Celi Murrell Unavailable [phone] Norberto West MD Unavailable [phone] Encounter Details Date Type Department Care Team (Late st Contact Info) Description 03/17/2021 Orders Only [place] [facility] [address], [address] [place] [address] Des Da Silva MD [address] [place] [address] Lumbar radiculopathy (Primary Dx) Social [...] Description 08/07/2025 12:40 PM EDT Office Visit [facility] Orthopaedic Surgery & Sports Medicine [address] [place] [address] Norberto West MD [address] [place] [address] documented as of this encounter Visit Diagnoses Diagnosis Lumbar radiculopathy- Primary Thoracic or lumbosacral neuritis or radiculitis, unspecified documented in this encounter Care Teams Agricultural Plow Operator Relationship Specialty Start Date End Date Janet Chapman PA [address] [facility] [place] [address] PCP - General 06/23/21 Clarence Rubin MD [address] [place] [address] Surgeon Neurosurgery 06/23/21 Frankie Dalton MD [address] [place] [address] Surgeon Neurosurgery 10/13/21 Frankie Dalton MD [address] [place] [address] Surgeon Neurosurgery 12/15/21 Celi Murrell PA [address] [place] [address] Physician Electrician Helper [employer]otive Neurosurgery 04/01/22 Norberto West MD [address] [place] [address] Surgeon Neurosurgery 10/29/24 documented as of this encounter
--- OUTSIDE RECORDS SUMMARY | 2025-06-14 14:56 | XMS_ITS | Encounter Summary ---
Author Organization [facility] Address [address] [place] [address] Care Team Providers Care Dumper [employer] Mixing [employer] Name Role Phone Janet Chapman Primary Care Provider [phone] Clarence Rubin MD Unavailable Frankie Dalton MD Unavailable [phone] Frankie Dalton MD Unavailable [phone] Celi Murrell Unavailable [phone] Norberto West MD Unavailable [phone] Encounter Details Date Type Department Care [...] Orthopaedic Surgery & Sports Medicine [address], [address] [place] [address] Norberto West MD [address] [place] [address] documented as of this encounter Visit Diagnoses Not on filedocumented in this encounter Additional Health Concerns Assessment Noted Time A fall risk assessment has been complete d for the patient 02/06/2025 3:12 PM EDT A Body Mass Index follow-up plan has been documented for the patient 02/06/2025 6:10 PM EDT documented as of this encounter Care Teams Dumper [employer]ing [employer] Relationship Specialty Start Date End Date Janet Chapman PA [address] [place] [address] PCP - General 06/23/21 Clarence Rubin MD [address] [place] [address] Surgeon Neurosurgery 06/23/21 Frankie Dalton MD [address] [place] [address] Surgeon Neurosurgery 10/13/21 Frankie Dalton MD [address] [place] [address] Surgeon Neurosurgery 12/15/21 Celi Murrell PA [address] [place] [address] Physician Coke Drawer Neurosurgery 04/01/22 Norberto West MD [address] [place] [address] Surgeon Neurosurgery 10/29/24 documented as of this encounter
--- NOTE | 2025-06-14 14:57 | CT_ITS ---
PROCEDURE INFORMATION: Exam: CT Lumbar Spine Without Contrast Exam date and time: 06/14/2025 2:59 PM Age: 49 years old Clinical indication: Other: Lbp-post lumbar fusion-spondylosis TECHNIQUE: Imaging protocol: Computed tomography of the lumbar spine without contrast. Radiation optimization: All CT scans at this facility use at least one of these dose optimization techniques: automated exposure control; mA and/or kV adjustment per patient size (includes targeted exams where dose is matched to clinical indication); or iterative reconstruction. COMPARISON: 1. MR LUMBAR SPINE WO CON 05/27/2025 7:[address] abdomen pelvis 02/19/[address] abdomen pelvis 01/25/2021 FINDINGS: Bones/joints: No acute fracture or subluxation. Post posterior and intradiscal fusion at L4-L5 is again noted. No acute hardware complication is identified. No evidence of hardware loosening. Post resection of the right L4-L5 facet and lamina, unchanged. Post right L5 laminotomy, unchanged. L1-L2: No significant spinal canal or foraminal stenosis. L2-L3: No significant spinal canal or foraminal stenosis. L3-L4: No significant spinal canal or foraminal stenosis. L4-L5: No significant spinal canal or foraminal stenosis. L5-S1: Stable loss of disc space height with vacuum phenomenon. Diffuse disc osteophyte complex. Bilateral facet hypertrophy, left greater than right. Disc-osteophyte complex and left hypertrophy combine to narrow the AP diameter the central spinal canal to 9 mm and severely narrow the left lateral recess, unchanged. There is likely contact of the descending left S1 nerve root, unchanged. Moderate to severe bilateral foraminal stenosis is again noted. Liver: Fatty infiltration of the liver. Spleen: Calcified splenic granulomas. Adrenal glands: 10 mm left adrenal nodule measures 16 Hounsfield units (indeterminate). The nodule is unchanged in size compared to the prior CTs. Kidneys and ureters: No renal stones or hydronephrosis. No stones in the visualized ureters. Stomach and bowel: Diverticulosis of the colon without evidence of acute diverticulitis as visualized. Vasculature: Aortoiliac atherosclerois. No abdominal aortic aneurysm. Soft tissues: Unremarkable. IMPRESSION: 1. No acute fracture of the lumbar spine. 2. Stable postsurgical changes. No acute hardware complication is identified. 3. Severe degenerative change at L5-S1 is again noted. Please see the level by level analysis for further discussion. COMMENTS: Consistent with the [employer]'s Incidental Findings Committee white paper (J Am Mahesh Radiol 2017): For any incidental adrenal lesion greater than or equal to 1 cm but less than or equal to 4 cm classified in this report as benign, likely benign, or containing fat (including classification as an adenoma or myelolipoma), no follow-up imaging is recommended per consensus recommendations based on imaging criteria. Further lab evaluation could be pursued if warranted based on clinical findings.
--- OUTSIDE RECORDS SUMMARY | 2025-06-14 14:57 | XMS_ITS | Encounter Summary ---
Author Organization [facility] Address [address] [place] [address] Care Team Providers Care Recruit Instructor Name Role Phone Janet Chapman Primary Care Provider [phone] Clarence Rubin MD Unavailable Frankie Dalton MD Unavailable [phone] Frankie Dalton MD Unavailable [phone] Celi Murrell Unavailable [phone] Norberto West MD Unavailable [phone] Reason for Visit * Reason Onset Date Comments HCN - Patient Message 05/24/2025 Encounter Details Date Type Department Care Team (Late st Contact Info) Description 05/24/2025 Telephone [facility] [address], [address] [place] [address] Norberto West MD [address] [place] [address] HCN - Patient Message Social [...] her know that everything was fxd to [facility] this morning and they will contact her to schedule. She verbalized understanding. * Telephone Encounter - Eden Bonilla - 05/24/2025 8:58 AM EDT Patient Phone Message Reason for Call: [facility] told her MRI was to be done at [facility] has no orders at this time Where will MRI be scheduled ? Best contact number and optimal time of day to reach caller: Pt / [phone] Note: Please do not reply to this message. Follow-up communication and further actions as a result of this message need to be communicated with the patient directly, if the patient is not active onMyChart. If the patient is active on MyChart, they will receive notification of the communication/outcome via [place]. documented in this encounter Plan of Treatment Upcoming Encounters Date Type Department Care Team (Late st Contact Info) Description 08/07/2025 12:40 PM EDT Office Visit [facility] Orthopaedic Surgery & Sports Medicine [address], [address] [place] [address] Norberto West MD [address] [place] [address] documented as of this encounter Visit Diagnoses Not on filedocumented in this encounter Additional Health Concerns Assessment Noted Time A fall risk assessment has been complete d for the patient 04/24/2025 2:23 PM EDT A Body Mass Index follow-up plan has been documented for the patient 04/24/2025 3:24 PM EDT documented as of this encounter Care Teams Recruit Instructor Relationship Specialty Start Date End Date Janet Chapman PA [address] [place] [address] PCP - General 06/23/21 Clarence Rubin MD [address] [place] [address] Surgeon Neurosurgery 06/23/21 Frankie Dalton MD [address] [place] [address] Surgeon Neurosurgery 10/13/21 Frankie Dalton MD [address] [place] [address] Surgeon Neurosurgery 12/15/21 Celi Murrell PA [address] [place] [address] Physician Accounts Payable Payroll Coordinator Neurosurgery 04/01/22 Norberto West MD [address] [place] [address] Surgeon Neurosurgery 10/29/24 documented as of this encounter
--- OUTSIDE RECORDS SUMMARY | 2025-06-14 14:57 | XMS_ITS | Encounter Summary ---
Author Organization [facility] Address [address] [place] [address] Care Team Providers Care Peanut Roaster Name Role Phone Janet Chapman Primary Care Provider [phone] Clarence Rubin MD Unavailable Frankie Dalton MD Unavailable [phone] Frankie Dalton MD Unavailable [phone] Celi Murrell Unavailable [phone] Norberto West MD Unavailable [phone] Encounter Details Date Type Department Care [...] Orthopaedic Surgery & Sports Medicine [address], 1st [address] [place] [address] Norberto West MD [address] [place] [address] documented as of this encounter Visit Diagnoses Not on filedocumented in this encounter Additional Health Concerns Assessment Noted Time A fall risk assessment has been complete d for the patient 04/24/2025 2:23 PM EDT A Body Mass Index follow-up plan has been documented for the patient 04/24/2025 3:24 PM EDT documented as of this encounter Care Teams Peanut Roaster Relationship Specialty Start Date End Date Janet Chapman PA [address] [place] [address] PCP - General 06/23/21 Clarence Rubin MD [address] [place] [address] Surgeon Neurosurgery 06/23/21 Frankie Dalton MD [address] [place] [address] Surgeon Neurosurgery 10/13/21 Frankie Dalton MD [address] [place] [address] Surgeon Neurosurgery 12/15/21 Celi Murrell PA [address] [place] [address] Physician Program Director Air Talent Neurosurgery 04/01/22 Norberto West MD [address] [place] [address] Surgeon Neurosurgery 10/29/24 documented as of this encounter
--- OUTSIDE RECORDS SUMMARY | 2025-06-14 14:57 | XMS_ITS | Clinical Summary ---
Author Organization [facility] Address [address] [place] [address] Care Team Providers Care Solar Consultant Name Role Phone Janet Chapman Primary Care Provider [phone] Clarence Rubin MD Unavailable Frankie Dalton MD Unavailable [phone] Frankie Dalton MD Unavailable [phone] Celi Murrell Unavailable [phone] Norberto West MD Unavailable [phone] Allergies Active Allergy Reactions Criticality Noted [...] (1 mg). 4 Active ergocalciferol 1.25 MG (56910 UT) capsule Takes on Sundays 4 Active [...] Department Care Team Description 05/31/2025 Orders Only [facility] [address], [address] [place] [address] Celi Murrell PA Status post lumbar spinal fusion (Primary Dx); Low back pain, unspecified back pain laterality, unspecified chronicity, unspecified whether sciatica present; Lumbar spondylosis; Bilateral lower extremity pain; Lumbar radiculopathy 05/27/2025 Orders Only External Location [address] [place] [address] Provider, External 05/24/2025 Telephone [facility] [address], [address] [place] [address] Norberto West MD HCN - Patient Message 05/23/2025 Orders Only [facility] [address], [address] [place] [address] Celi Murrell PA Status post lumbar spinal fusion (Primary Dx); Low back pain, unspecified back pain laterality, unspecified chronicity, unspecified whether sciatica present; Bilateral lower extremity pain; Lumbar radiculopathy; Lumbar spondylosis 04/24/2025 1:40 PM EDT Office Visit [facility] Orthopaedic Surgery & Sports Medicine [address] [place] [address] Norberto West MD S/P lumbar fusion (Primary Dx); Sacroiliac joint pain 04/24/2025 9:44 AM EDT - 04/24/2025 11:59 PM EDT Hospital Encounter [facility] Radiology [address] [place] [address] Status post lumbar spinal fusion Discharge Disposition: Home or Self Care 04/24/2025 Travel 04/23/2025 Orders Only [facility] [address] [place] [address] Norberto West MD Status post lumbar spinal fusion (Primary Dx) 04/18/2025 Travel 04/12/2025 Telephone [facility] [address] [place] [address] Norberto West MD from Last 3 Months Immunizations Immunization Administration Dates Next Due Influenza, injectable, quadrivalent 09/22/2017 Influenza, injectable, quadrivalent, preservativ e free 08/11/2021,09/29/2020 Influenza, seasonal, injectable, preservative fr ee 08/15/2018 TD (adult), 2 Lf tetanus tox oid, preservative free, adsorbed 12/29/1996 Family History Medical History Relation Name Comments Lupus Father's Sister Crohn's disease Maternal Grandmother Arthritis Mother SWETA Cancer Mother WSETA Depression Mother SWETA Diabetes Mother SWETA Hypertension [...] Description 08/07/2025 12:40 PM EDT Office Visit [facility] Orthopaedic Surgery & Sports Medicine [address] [place] [address] Norberto West MD [address] [place] [address] Health Maintenance Due Date Last Done Comments [...] 2023 [facility]-Zoster Vaccines (1 of 2) 2023 [id number] Vaccine ( season) 2024 [facility]-Influenza Vaccine (#1) [...] this topic Medical Devices Implanted Type Area Manager Information Device Identifier Shelf Expiration Date Model / Serial / Lot Tlif-C Ui 12mm 8deg 28/10 - [id number] Implanted:Qty : 1 on 11/08/2024 by Norberto West MD at [facility] Cage N/A: Spine Lumbar DePuy Spine [employer] [id number] 03/23/2028 [id number] / / Lowell Viper2 Lordotic 45mm - [id number] Implanted:Qty : 2 on 11/08/2024 by Norberto West MD at [facility] Lowell N/A: Spine Lumbar DePuy Spine Sales [id number] 11/08/2025 [id number] / / Single Inner Setscrew - [id number] Implanted:Qty : 4 on 11/08/2024 by Norberto West MD at [facility] Screw N/A: Spine Lumbar De[employer]uy Spine [employer] [id number] 11/08/2025 [id number] / / Screw 7.0mm Viper Cfx Fen Xtab 50mm - [id number] Implanted:Qty : 4 on 11/08/2024 by Norberto West MD at [facility] Screw N/A: Spine Lumbar DePuy Spine Sales [id number] 11/08/2025 [id number] / / Tissue Vivigen Formable 5.4cc Med Pk/4 - [id number] - [id number] Implanted:Qty : 1 on 11/08/2024 by Norberto West MD at [facility] Spine Lumbar [facility]-[id number] 10/04/2025 [id number] / [id number] / [id number] Procedures Procedure Name Priority Date/Time Associated Diagnosis [...] Patient has decision-making capacity? Yes Care Teams Solar Consultant Relationship Specialty Start Date End Date Janet Chapman PA [address] [place] [address] PCP - General 06/23/21 Clarence Rubin MD [address] [place] [address] Surgeon Neurosurgery 06/23/21 Frankie Dalton MD [address] [place] [address] Surgeon Neurosurgery 10/13/21 Frankie Dalton MD [address] [place] [address] Surgeon Neurosurgery 12/15/21 Celi Murrell PA [address] [place] [address] Physician Maintenance Service Technician Neurosurgery 04/01/22 Norberto West MD [address] [place] [address] Surgeon Neurosurgery 10/29/24
--- OUTSIDE RECORDS SUMMARY | 2025-06-14 14:57 | XMS_ITS | Encounter Summary ---
Author Organization [facility] Address [address] [place] [address] Care Team Providers Care Snap Attacher Name Role Phone Janet Chapman Primary Care Provider [phone] Clarence Rubin MD Unavailable Frankie Dalton MD Unavailable Frankie Dalton MD Unavailable [phone] Celi Murrell Unavailable [phone] Norberto West MD Unavailable [phone] Encounter Details Date Type Department Care Team (Late st Contact Info) Description 12/25/2021 Orders Only External Location [address] [place] [address] Celi Murrell PA [address] [facility] [address] [place] [address] Social History Tobacco Use Types Packs/Day Years [...] Description 08/07/2025 12:40 PM EDT Office Visit [facility] Orthopaedic Surgery & Sports Medicine [address] [place] [address] Norberto West MD [address] [place] [address] documented as of this encounter [...] documented as of this encounter Care Teams Snap Attacher Relationship Specialty Start Date End Date Janet Chapman PA [address] [place] [address] PCP - General 06/23/21 Clarence Rubin MD [address] [place] [address] Surgeon Neurosurgery 06/23/21 Frankie Dalton MD [address] [place] [address] Surgeon Neurosurgery 10/13/21 Frankie Datlon MD [address] [place] [address] Surgeon Neurosurgery 12/15/21 Celi Murrell PA [address] [place] [address] Physician Contract Serviceman Neurosurgery 04/01/22 Norberto West MD [address] [place] [address] Surgeon Neurosurgery 10/29/24 documented as of this encounter
== END 2025-06-14 23:59 | disposition home or self-care (01) ==
LOC: RAD 14:55
PROVIDERS: PCP Physician Assistant; Visit Provider Physician Assistant Medical
DX: M47.26 Other spondylosis with radiculopathy, lumbar region (principal); M47.27 Other spondylosis with radiculopathy, lumbosacral region; M79.604 Pain in right leg; M79.605 Pain in left leg; Z98.1 Arthrodesis status
CPT/HCPCS: 72131

== ENCOUNTER 2025-06-20 11:00 | Outpatient (RCR) | payer OTHER, SELFPAY ==
--- NOTE | 2025-07-15 09:31 | HMH.RHREAS ---
Rehab Reassessment Rehab OP Re-assessment Start: 05/31/25 15:39 Freq: Status: Discharge Protocol: Document 06/17/25 11:20 GLEN (Rec: 06/17/25 11:40 GLEN [id number]) E-signed By Amanda Lancaster, OT QuickDASH Activities Please rate your ability to do the following activities in the last week by selecting the number below the appropriate response. 1. Open a tight or Severe difficulty new jar. 2. Do heavy Severe difficulty human resources associate (e. g., wash stubbs, floors). 3. Carry a shopping Unable bag or briefcase. 4. Wash your back. Unable 5. Use a knife to Moderate difficulty cut food. 6. Recreational Unable activities in which you take some force or impact through your arm, shoulder, or hand (e.g., golf, hammering, tennis, etc.). 7. During the past Slightly week, to what extent has your arm, shoulder or hand problem interfered with your normal social activities with family, friends , neighbors or groups? 8. During the past Moderately limited week, were you limited in your work or other regular daily activites as a result of your arm, shoulder or hand problem? 9. Arm, shoulder or Extreme hand pain. 10. Tingling (pins Moderate and needles) in your arm, shoulder or hand. 11. During the past Severe difficulty week, how much difficulty have you had sleeping because of the pain in your arm, shoulder or hand? Quick DASH 43 Rehab Re-assessment Subjective Subjective I did some house work yesterday so it is sore. Objective Objective Notes Pt is a 49 year old female being seen for skilled OP OT services and interventions for L shoulder pain. Patient had a L labrum tear repair ~2 years ago with no difficulty until of recent. Patient reported the L shoulder pain started after back surgery on Nov 08 2024. Patient reported having pain during any lifting, pushing, pulling and housework tasks of sweeping/moping . Pt has reported increase in pain today at 7/10 due to completion of house hold chores and driving. Pt reports driving usually flares pain. Pt reported pain in Abd and IR today. Assessment Progress Assessment Progressing as Expected Assessment Notes Pt is consistent with attending therapy sessions. Pt is always pleasant to interact with. Pt reported they needed at least three more weeks of therapy before being approved for insurance. Each session, pt engages in e-stim, ultrasound, and therapeutic exercising and light strengthening during therapy sessions. Pt has reached many STG and LTG this reassessment, but pain is still persistent. Pt presents with good ROM of L shoulder. Measurements as of 06/17/2025 L shoulder: Flex- 165 degrees Abd- 175 degrees ER- 60 degrees IR- 20 degrees Pain: 7/10 at worst Quick Dash Activities: 43 OT Patient Goals OT Short Term Yes: Improve AROM of LUE shld flex: 160; abd: 130; er: Patient Goals 60; ir: 60: MET all except IR Yes: Improve L UE shld strength to 3+ to 4-/5 throughout: MET 3+/5 Yes: 4/10 pain at worst: Not met Yes: AAROM: MET Yes: Strengthening: MET Yes: 35 : Not Met OT Tool And Die Repair Patient Yes: Improve AROM of LUE shld flex: 170; abd: 150; er: Goals 70; ir: 70: ABD MET Yes: Improve L UE shld strength to 4-/5 to 4/5 throughout Yes: 3/10 pain at worst Yes: AROM Yes: Advance strengthening Yes: 30 All LTG with exception of ABD of L shoulder are in progress Plan Plan Continue OT POC at this time OT POC will include: addressing above deficits and goals with therapeutic exercising, manual stretching, electrical stimulation, and therapeutic modalities to improve functional limitations in occupational performance to gain optimal occupational performance needed for ADLs and IADLs completion in daily living. Frequency of Therapy 2x/wk Duration of Therapy 4 more weeks Therapeutic Exercise Yes Including Home Exercise Program Manual Therapy Yes Techniques Neuromuscular Re- Yes education Therapeutic Yes Activities to Return to Previous Functional/Work Level ADL/Self Care Yes Education Thermal Modalities Yes Electrical Yes Stimulation Ultrasound/ Yes Phonophoresis Iontophoresis Yes Parrafin Yes Orthotics/Bracing/ Yes Splinting Group Therapy for Yes Medicare Eval/Re-Eval Yes Time and Billing Re-Eval Time 8 Re-Eval Billing 1 Units Charge for OT Yes reassessment? PHYSICIAN CERTIFICATION: I certify the specified therapy services for Jenny Barr are required, authorized, and reviewed every 30 days.
== END 2025-06-20 23:59 | disposition home or self-care (01) ==
LOC: OT 11:00
PROVIDERS: PCP Physician Assistant; Visit Provider Orthopaedic Surgery
DX: M25.312 Other instability, left shoulder (principal)
CPT/HCPCS: 97014; 97110; 97140; 97168; G0283

== ENCOUNTER 2025-06-28 11:00 | Outpatient (RCR) | payer OTHER, SELFPAY | END 2025-06-28 23:59 | disposition home or self-care (01) | LOC: OT 11:00 | PROVIDERS: PCP Physician Assistant; Visit Provider Orthopaedic Surgery | DX: M25.312 Other instability, left shoulder (principal) | CPT/HCPCS: 97014; 97110; 97140; G0283 ==

== ENCOUNTER 2025-06-28 16:51 | Emergency (ER) | payer OTHER, SELFPAY ==
--- OUTSIDE RECORDS SUMMARY | 2025-04-24 13:40 | XMS_ITS | Encounter Summary ---
Author Organization [facility] Address [address] [place] [address] Care Team Providers Care Lawn Care Specialist Name Role Phone Janet Chapman Primary Care Provider [phone] Clarence Rubin MD Unavailable Frankie Dalton MD Unavailable [phone] Frankie Dalton MD Unavailable [phone] Celi Winter Unavailable [phone] Norberto West MD Unavailable [phone] Encounter Details Date Type Department Care Team (Late st Contact Info) Description 04/24/2025 1:40 PM EDT Office Visit [facility] [address], [address] [place] [address] Norberto West MD [address] [place] [address] S/P lumbar fusion (Primary Dx); [...] coordination of care. I spent >50% in wsqh-or-bsyy communication with the patient over the diagnosis, treatment options and plan. Norberto West MD MS Design And Sales Consultant of Neurosurgery Complex and Minimally Invasive Spine Surgery [address] [address] [place], [address] Addendum 05/23/2025: Physical therapy notes have been [...] Description 08/07/2025 12:40 PM EDT Office Visit [facility] Surgery [facility] Medicine [address] [place] [address] Norberto West MD [address] [place] [address] documented as of this encounter [...] documented as of this encounter Care Teams Lawn Care Specialist Relationship Specialty Start Date End Date Janet Chapman PA [address] [place] [address] PCP - General 06/23/21 Clarence Rubin MD [address] [place] [address] Surgeon Neurosurgery 06/23/21 Frankie Dalton MD [address] [place] [address] Surgeon Neurosurgery 10/13/21 Frankie Dalton MD [address] [place] [address] Surgeon Neurosurgery 12/15/21 Celi Winter PA [address] [place] [address] Physician Bleach Boiler Filler Neurosurgery 04/01/22 Norberto West MD [address] [facility] [address] [place] [address] Surgeon Neurosurgery 10/29/24 documented as of this encounter
[2025-06-28 17:15] VITALS: BP 161/88; PULSE 75; RESP 18; TEMP 36.7; O2SAT 98; BMI 36.9
--- OUTSIDE RECORDS SUMMARY | 2025-06-28 17:28 | XMS_ITS | Clinical Summary ---
Author Organization [facility] Address [address] [place] [address] Care Team Providers Care Food And Beverage Order Clerk Name Role Phone Janet Chapman Primary Care Provider [phone] Allergies No known active allergies Medications escitalopram [...] 2023 COVID-19 Vaccine (1 - 2023- season) 2025 INFLUENZA VACCINE 07/24/2025 08/15/2018, 08/15/2018 Insurance [employer] [id number] [facility] Care Teams Food And Beverage Order Clerk Relationship Specialty Start Date End Date Janet Chapman PA PCP - General Physician Barman 07/14/21
--- OUTSIDE RECORDS SUMMARY | 2025-06-28 17:28 | XMS_ITS | Encounter Summary ---
Author Organization [facility] Address [address] [place] [address] Care Team Providers Care Lockstitch Front Maker Name Role Phone Janet Chapman Primary Care Provider [phone] Clarence Rubin MD Unavailable Frankie Dalton MD Unavailable [phone] Frankie Dalton MD Unavailable [phone] Celi Murrell Unavailable [phone] Norberto West MD Unavailable [phone] Reason for Referral * Imaging (Urgent) - Authorized Specialty Diagnoses / Procedures Referred By Contac t Referred To Contact Diagnoses Status post lumbar spinal fusion Low back pain, unspecified back pain laterality, unspecified chronicity, unspecified whether sciatica present Lumbar spondylosis Bilateral lower extremity pain Lumbar radiculopathy Procedures CT Lumbar Spine wo IV Contrast Celi Murrell PA [address] [place] [address] Phone: tel: fax: Referral ID Status Reason Start Date Expiration Date V isits Requested Visits Authorized [id number] Authorized 05/31/2025 11/30/2026 1 1 Encounter Details Date Type Department Care Team (Late st Contact Info) Description 05/31/2025 Orders Only [facility] [address], [address] [place] [address] Celi Murrell PA [id number] [place] [address] Status post lumbar spinal fusion [...] Orthopaedic Surgery & Sports Medicine [address], [address] [place] [address] Norberto West MD [address] [address] Scheduled Orders Name Type [...] documented as of this encounter Care Teams Lockstitch Front Maker Relationship Specialty Start Date End Date Janet Chapman PA [address] [facility] [place] [address] PCP - General 06/23/21 Clarence Rubin MD [address] [place] [address] Surgeon Neurosurgery 06/23/21 Frankie Dalton MD [address] [place] [address] Surgeon Neurosurgery 10/13/21 Frankie Dalton MD [address] [place] [address] Surgeon Neurosurgery 12/15/21 Celi Murrell PA [address] [place] [address] Physician Slitter Scorer Neurosurgery 04/01/22 Norberto West MD [address] [place] [address] Surgeon Neurosurgery 10/29/24 documented as of this encounter
--- OUTSIDE RECORDS SUMMARY | 2025-06-28 17:28 | XMS_ITS | Encounter Summary ---
Author Organization [facility] Address [address] [place] [address] Care Team Providers Care Personal Lines Insurance Advisor Name Role Phone Janet Chapman Primary Care Provider [phone] Clarence Rubin MD Unavailable Frankie Dalton MD Unavailable [phone] Frankie Dalton MD Unavailable [phone] Celi Murrell Unavailable [phone] Norberto West MD Unavailable [phone] Encounter Details Date Type Department Care Team (Late Contact Info) Description 05/27/2025 Orders Only External Location [address] [place] [address] Provider, External Social History Tobacco Use Types [...] Orthopaedic Surgery & Sports Medicine [address], [address] [place] [address] Norberto West MD [address] [place] [address] documented as of this encounter [...] documented as of this encounter Care Teams Personal Lines Insurance Advisor Relationship Specialty Start Date End Date Janet Chapman PA [address] [place] [address] PCP - General 06/23/21 Clarence Rubin MD [address] [place] [address] Surgeon Neurosurgery 06/23/21 Frankie Dalton MD [address] [place] [address] Surgeon Neurosurgery 10/13/21 Frankie Dalton MD [address] [place] [address] Surgeon Neurosurgery 12/15/21 Celi Murrell PA [address] [facility] [place] [address] Physician Seafood Process Worker Neurosurgery 04/01/22 Norberto West MD [address] [facility] [place] [address] Surgeon Neurosurgery 10/29/24 documented as of this encounter
--- OUTSIDE RECORDS SUMMARY | 2025-06-28 17:28 | XMS_ITS | Encounter Summary ---
Author Organization [facility] Address [address] [place] [address] Care Team Providers Care Operations Advisor Name Role Phone Janet Chapman Primary Care Provider [phone] Clarence Rubin MD Unavailable Frankie Dalton MD Unavailable [phone] Frankie Dalton MD Unavailable [phone] Celi Murrell Unavailable [phone] Norberto West MD Unavailable [phone] Reason for Visit * Reason Onset Date Comments HCN - Patient Message 05/24/2025 Encounter Details Date Type Department Care Team (Late st Contact Info) Description 05/24/2025 Telephone [facility] [address], [address] [place] [address] Norberto West MD [address] [place] [address] HCN - Patient Message Social [...] her know that everything was fxd to [facility] this morning and they will contact her to schedule. She verbalized understanding. * Telephone Encounter - Eden Bonilla - 05/24/2025 8:58 AM EDT Patient Phone Message Reason for Call: [facility] told her MRI was to be done at [facility] has no orders at this time Where will MRI be scheduled ? Best contact number and optimal time of day to reach caller: Pt / [phone] Note: Please do not reply to this message. Follow-up communication and further actions as a result of this message need to be communicated with the patient directly, if the patient is not active onMyChart. If the patient is active on MyChart, they will receive notification of the communication/outcome via Vocationt. documented in this encounter Plan of Treatment Upcoming Encounters Date Type Department Care Team (Late st Contact Info) Description 08/07/2025 12:40 PM EDT Office Visit [facility] Orthopaedic Surgery & Sports Medicine [address], [address] [place] [address] Norberto West MD [address] [place] [address] documented as of this encounter Visit Diagnoses Not on filedocumented in this encounter Additional Health Concerns Assessment Noted Time A fall risk assessment has been complete d for the patient 04/24/2025 2:23 PM EDT A Body Mass Index follow-up plan has been documented for the patient 04/24/2025 3:24 PM EDT documented as of this encounter Care Teams Operations Advisor Relationship Specialty Start Date End Date Janet Chapman PA [address] [place] [address] PCP - General 06/23/21 Clarence Rubin MD [address] [place] [address] Surgeon Neurosurgery 06/23/21 Frankie Dalton MD [address] [place] [address] Surgeon Neurosurgery 10/13/21 Frankie Dalton MD [address] [place] [address] Surgeon Neurosurgery 12/15/21 Celi Murrell PA [address] [place] [address] Physician Cell Attendant Neurosurgery 04/01/22 Norberto West MD [address] [place] [address] Surgeon Neurosurgery 10/29/24 documented as of this encounter
--- OUTSIDE RECORDS SUMMARY | 2025-06-28 17:28 | XMS_ITS | Encounter Summary ---
Author Organization [facility] Address [address] [place] [address] Care Team Providers Care Legal Consultant Name Role Phone Janet Chapman Primary Care Provider [phone] Clarence Rubin MD Unavailable Frankie Dalton MD Unavailable [phone] Frankie Dalton MD Unavailable [phone] Celi Murrell Unavailable [phone] Norberto West MD Unavailable [phone] Encounter Details Date Type Department Care Team (Late st Contact Info) Description 03/17/2021 Orders Only [facility] [address], [address] [place] [address] Des Da Silva MD [address] [place] [address] Lumbar radiculopathy (Primary Dx) Social [...] [address], [address] [place] [address] Norberto West MD [address] [place] [address] documented as of this encounter Visit Diagnoses Diagnosis Lumbar radiculopathy- Primary Thoracic or lumbosacral neuritis or radiculitis, unspecified documented in this encounter Care Teams Legal Consultant Relationship Specialty Start Date End Date Janet Chapman PA [address] [facility] [place] [address] PCP - General 06/23/21 Clarence Rubin MD [address] [place] [address] Surgeon Neurosurgery 06/23/21 Frankie Dalton MD [address] [place] [address] Surgeon Neurosurgery 10/13/21 Frankie Dalton MD [address] [place] [address] Surgeon Neurosurgery 12/15/21 Celi Murrell PA [address] [place] [address] Physician Meat Cutting Teacher Neurosurgery 04/01/22 Norberto West MD [address] [place] [address] Surgeon Neurosurgery 10/29/24 documented as of this encounter
--- OUTSIDE RECORDS SUMMARY | 2025-06-28 17:28 | XMS_ITS | Clinical Summary ---
Author Organization [facility] Address [address] [place] [address] Care Team Providers Care Inpatient Services Rn Name Role Phone Janet Chapman Primary Care Provider [phone] Clarence Rubin MD Unavailable Frankie Dalton MD Unavailable [phone] Frankie Dalton MD Unavailable [phone] Celi Murrell Unavailable [phone] Norberto West MD Unavailable [phone] Allergies Active Allergy Reactions Criticality Noted [...] (1 mg). 4 Active ergocalciferol 1.25 MG (21139 UT) capsule Takes on Sundays 4 Active [...] Department Care Team Description 05/31/2025 Orders Only [facility] [address], [address] [place] [address] Celi Murrell PA Status post lumbar spinal fusion (Primary Dx); Low back pain, unspecified back pain laterality, unspecified chronicity, unspecified whether sciatica present; Lumbar spondylosis; Bilateral lower extremity pain; Lumbar radiculopathy 05/27/2025 Orders Only External Location [address] [place] [address] Provider, External 05/24/2025 Telephone [facility] [address], [address] [place] [address] Norberto West MD HCN - Patient Message 05/23/2025 Orders Only [facility] [address], [address] [place] [address] Celi Murrell PA Status post lumbar spinal fusion (Primary Dx); Low back pain, unspecified back pain laterality, unspecified chronicity, unspecified whether sciatica present; Bilateral lower extremity pain; Lumbar radiculopathy; Lumbar spondylosis 04/24/2025 1:40 PM EDT Office Visit [facility] Orthopaedic Surgery & Sports Medicine [address], [address] [place] [address] Norberto West MD S/P lumbar fusion (Primary Dx); Sacroiliac joint pain 04/24/2025 9:44 AM EDT - 04/24/2025 11:59 PM EDT Hospital Encounter [facility] Radiology [address], [address] [place] [address] Status post lumbar spinal fusion Discharge Disposition: Home or Self Care 04/24/2025 Travel 04/23/2025 Orders Only [facility] [address], [address] [place] [address] Norberto West MD Status post lumbar spinal fusion (Primary Dx) 04/18/2025 Travel 04/12/2025 Telephone [facility] [address], [address] [place] [address] Norberto West MD from Last [...] Orthopaedic Surgery & Sports Medicine [address], [address] [place] [address] Norberto West MD [address] [place] [address] Health Maintenance Due Date Last Done Comments [...] 2023 [facility]-Zoster Vaccines (1 of 2) 2023 [id number]-[id number] Vaccine ( season) 2025 [facility]-Influenza Vaccine (#1) 06/24/202508/02, 08/29/2023, 08/13/2022, Additional [...] this topic Medical Devices Implanted Type Area Ski Lift Attendant Device Identifier Shelf Expiration Date Model / Serial / Lot Tlif-C Ui 12mm 8deg 28/10 - [id number] Implanted:Qty : 1 on 11/08/2024 by Norberto West MD at [facility] Cage N/A: Spine Lumbar DePuy Spine Sales [id number] 03/23/2028 [id number] / / Lowell Viper2 Lordotic 45mm - [id number] Implanted:Qty : 2 on 11/08/2024 by Norberto West MD at [facility] Lowell N/A: Spine Lumbar DePuy Spine Sales [id number] 11/08/2025 [id number] / / Single Inner Setscrew - [id number] Implanted:Qty : 4 on 11/08/2024 by Norberto West MD at [facility] Screw N/A: Spine Lumbar DePuy Spine Sales [id number] 11/08/2025 [id number] / / Screw 7.0mm Viper Cfx Fen Xtab 50mm - [id number] Implanted:Qty : 4 on 11/08/2024 by Norberto West MD at [facility] Screw N/A: Spine Lumbar DePuy Spine Sales [id number] 11/08/2025 [id number] / / Tissue Vivigen Formable 5.4cc Med Pk/4 - [id number] - [id number] Implanted:Qty : 1 on 11/08/2024 by Norberto West MD at [facility] Spine Lumbar [id number] 10/04/2025 [id number] / [id number] / [id number] Procedures Procedure Name Priority Date/Time Associated Diagnosis [...] Patient has decision-making capacity? Yes Care Teams Inpatient Services Rn Relationship Specialty Start Date End Date Janet Chapman PA [address] [facility] [place] [address] PCP - General 06/23/21 Clarence Rubin MD [address] [place] [address] Surgeon Neurosurgery 06/23/21 Frankie Dalton MD [address] [place] [address] Surgeon Neurosurgery 10/13/21 Frankie Dalton MD [address] [place] [address] Surgeon Neurosurgery 12/15/21 Celi Murrell PA [address] [place] [address] Physician Dispatcher Ship Pilot Neurosurgery 04/01/22 Norberto West MD [address] [place] [address] Surgeon Neurosurgery 10/29/24
--- OUTSIDE RECORDS SUMMARY | 2025-06-28 17:28 | XMS_ITS | Encounter Summary ---
Author Organization [facility] Address [address] [place] [address] Care Team Providers Care Plywood Factory Worker Name Role Phone Janet Chapman Primary Care Provider [phone] Clarence Rubin MD Unavailable Frankie Dalton MD Unavailable Frankie Dalton MD Unavailable [phone] Celi Murrell Unavailable [phone] Norberto West MD Unavailable [phone] Encounter Details Date Type Department Care Team (Late st Contact Info) Description 04/12/2025 Telephone [place] [facility] [address], [address] [place] [address] Norberto West MD [address] [place] [address] Social History Tobacco Use Types [...] optimal time of day to reach caller: [phone] Note: Please do not reply to this message. Follow-up communication and further actions as a result of this message need to be communicated with the patient directly, if the patient is not active onMyChart. If the patient is active on MyChart, they will receive notification of the communication/outcome via Tekmihart. documented in this encounter Plan of Treatment Upcoming Encounters Date Type Department Care Team (Late st Contact Info) Description 08/07/2025 12:40 PM EDT Office Visit [facility] Orthopaedic Surgery & Sports Medicine [address], [address] [place] [address] Norberto West MD [id number] [place] [address] documented as of this encounter Visit Diagnoses Not on filedocumented in this encounter Additional Health Concerns Assessment Noted Time A fall risk assessment has been complete d for the patient 02/06/2025 3:12 PM EDT A Body Mass Index follow-up plan has been documented for the patient 02/06/2025 6:10 PM EDT documented as of this encounter Care Teams Plywood Factory Worker Relationship Specialty Start Date End Date Janet Chapman PA [address] [place] [address] PCP - General 06/23/21 Clarence Rubin MD [id number] [place] [address] Surgeon Neurosurgery 06/23/21 Frankie Dalton MD [address] [place] [address] Surgeon Neurosurgery 10/13/21 Frankie Dalton MD [address] [place] [address] Surgeon Neurosurgery 12/15/21 Ceil Murrell PA [address] [place] [address] Physician Pc Network Technician Neurosurgery 04/01/22 Norberto West MD [address] [place] [address] Surgeon Neurosurgery 10/29/24 documented as of this encounter
--- OUTSIDE RECORDS SUMMARY | 2025-06-28 17:28 | XMS_ITS | Encounter Summary ---
Author Organization [facility] Address [address] [place] [address] Care Team Providers Care Playground Director Name Role Phone Janet Chapman Primary Care Provider [phone] Clarence Rubin MD Unavailable Frankie Dalton MD Unavailable Frankie Dalton MD Unavailable [phone] Celi Murrell Unavailable [phone] Norberto West MD Unavailable [phone] Encounter Details Date Type Department Care Team (Late st Contact Info) Description 12/25/2021 Orders Only External Location [address] [place] [address] Celi Murrell PA [address] [facility] [address] [place] [address] Social History Tobacco Use Types Packs/Day Years [...] Orthopaedic Surgery & Sports Medicine [address], [address] [place] [address] Norberto West MD [address] [place] [address] documented as of this encounter [...] documented as of this encounter Care Teams Playground Director Relationship Specialty Start Date End Date Janet Chapman PA [address] [place] [address] PCP - General 06/23/21 Clarence Rubin MD [address] [place] [address] Surgeon Neurosurgery 06/23/21 Frankie Dalton MD [address] [place] [address] Surgeon Neurosurgery 10/13/21 Frankie Dalton MD [address] [place] [address] Surgeon Neurosurgery 12/15/21 Celi Murrell PA [address] [place] [address] Physician Mill Roll Rewinder Neurosurgery 04/01/22 Norberto West MD [address] [place] [address] Surgeon Neurosurgery 10/29/24 documented as of this encounter
--- OUTSIDE RECORDS SUMMARY | 2025-06-28 17:28 | XMS_ITS | Encounter Summary ---
Author Organization [facility] Address [address] [place] [address] Care Team Providers Care Hydraulic Miner Blasting Name Role Phone Janet Chapman Primary Care Provider [phone] Clarence Rubin MD Unavailable Frankie Dalton MD Unavailable [phone] Frankie Dalton MD Unavailable [phone] Celi Murrell Unavailable [phone] Norberto West MD Unavailable [phone] Reason for Referral * Imaging (Urgent) - Authorized Specialty Diagnoses / Procedures Referred By Contac t Referred To Contact Diagnoses Status post lumbar spinal fusion Low back pain, unspecified back pain laterality, unspecified chronicity, unspecified whether sciatica present Bilateral lower extremity pain Lumbar radiculopathy Lumbar spondylosis Procedures MR Lumbar Spine wo IV Contrast Celi Murrell PA [address] [place] [address] Phone: tel: fax: Referral ID Status Reason Start Date Expiration Date V isits Requested Visits Authorized [id number] Authorized 05/23/2025 11/22/2026 1 1 Encounter Details Date Type Department Care Team (Late st Contact Info) Description 05/23/2025 Orders Only [facility] [address], [address] [place] [address] Celi Murrell PA [id number] [place] [address] Status post lumbar spinal fusion [...] Description 08/07/2025 12:40 PM EDT Office Visit [facility] Orthopaedic Surgery & Sports Medicine [address], [address] [place] [address] Norberto West MD [address] [address] Scheduled Orders Name Type Priority [...] documented as of this encounter Care Teams Hydraulic Miner Blasting Relationship Specialty Start Date End Date Janet Chapman PA [address] [facility] [address] PCP - General 06/23/21 Clarence Rubin MD [address] [place] [address] Surgeon Neurosurgery 06/23/21 Frankie Dalton MD [address] [place] [address] Surgeon Neurosurgery 10/13/21 Frankie Dalton MD [address] [place] [address] Surgeon Neurosurgery 12/15/21 Celi Murrell PA [address] [place] [address] Physician Healthcare Marketer Neurosurgery 04/01/22 Norberto West MD [address] [place] [address] Surgeon Neurosurgery 10/29/24 documented as of this encounter
[2025-06-28] MEDS: ONDANSETRON 4MG ODT 4 MG SL (17:30)
[2025-06-28 17:39] LABS: Hematocrit 39.7 % (37.0-47.0); Hemoglobin 13.2 g/dL (12.2-16.2); Immature Granulocytes % 0.4 %; Mean Corpuscular HGB Conc 33.2 g/dL (31.8-35.4); Mean Corpuscular Hemoglobin 30.4 pg (27.0-31.2); Mean Corpuscular Volume 91.5 fl (81-99); Nucleated Red Blood Cells % 0 %; Platelet Count 323 K/mm3 (142-424); Red Blood Count 4.34 M/mm3 (4.20-5.40); Red Cell Distribution Width-SD 40.2 fL; White Blood Count 10.5 K/mm3 (4.8-10.8)
[2025-06-28 17:50] LABS: Albumin Level 4.4 g/dl (3.5-5.0); Chloride 100 mmol/L (98-107); Sodium 132 mmol/L (136-145)
[2025-06-28 17:51] LABS: Potassium 4.1 mmoL/L (3.5-5.1)
[2025-06-28 17:53] LABS: Alanine Aminotransferase 130 U/L (12-78); Albumin/Globulin Ratio 1.4 (1.1-1.8); Alkaline Phosphatase 109 U/L (38-126); Anion Gap 11.1 mEq/L (5-15); Aspartate Amino Transferase 102 U/L (14-36); Bilirubin,Total 0.4 mg/dl (0.2-1.3); Blood Urea Nitrogen 16 mg/dl (7-17); Calcium 9.6 mg/dl (8.4-10.2); Carbon Dioxide 25 mmol/L (22.0-30.0); Creatinine Clearance Estimated 165 mL/min (50-200); Creatinine,Serum 0.70 mg/dl (0.52-1.04); Estimated Glomerular Filt Rate 88 ml/min (>60); GFR (African American) 107 ML/MIN (>60); Globulin 3.2 g/dL (1.3-3.2); Glucose 316 mg/dl (74-100); Lipase 159 U/L (23-300); Total Protein,Serum 7.6 g/dl (6.3-8.2)
[2025-06-28 18:05] LABS: Microscopic, Urine URINE MICROSCOPIC (MICROSCOPIC)
--- NOTE | 2025-06-28 18:20 | ED_ITS ---
<Statement entered by Bay Fountain MD - 06/28/25 23:23> I was consulted by the KRISSY, and we discussed the complexity of the problems being addressed. I approved the treatment and management plan for this patient's care in the emergency department, thus performing a substantive portion of the medical decision making. Bay Fountain MD, MARINA, FACEP Discharge Plan Disposition Patient Disposition: Home, Self-Care Prescriptions Prescriptions: New ondansetron 4 mg tablet,disintegrating 4 mg PO Q8H PRN (Reason: nausea and vomiting) 5 Days Qty: 20 0RF No Action cholecalciferol (vitamin D3) 50 mcg (2,000 unit) capsule 50 mcg PO DIRECTED lidocaine 5 % adhesive patch,medicated 1 patch topical DAILY Qty: 15 0RF Rx Instructions: leave on most painful area for up to 12 hrs oxybutynin chloride 10 mg tablet extended release 24hr 10 mg PO DAILY Qty: 90 0RF estradiol [Estrace] 0.01 % (0.1 mg/gram) cream 1 appful vaginal DAILY Qty: 42.5 2RF Rx Instructions: Using finger technique daily for 14 days and then 3 times a week thereafter. cyclobenzaprine 5 mg tablet 5 mg PO TID PRN (Reason: muscle spasm) Qty: 20 0RF tramadol 25 mg tablet 25 mg PO Q6H PRN lisinopril 10 mg tablet See Rx Instructions .ROUTE .COMPLEX Qty: 30 0RF Dose Instruction: TAKE 1 TABLET BY MOUTH ONCE DAILY FOR BLOOD PRESSURE Rx Instructions: TAKE 1 TABLET BY MOUTH ONCE DAILY FOR BLOOD PRESSURE atorvastatin 20 mg tablet 20 mg PO HS escitalopram oxalate 20 mg tablet 20 mg PO DAILY Rexulti 1 mg tablet 1 mg PO DAILY albuterol sulfate 90 mcg/actuation HFA aerosol inhaler 2 inh inhalation Q6H PRN (Reason: shortness of breath or wheezing) Qty: 6.7 0RF Ozempic 0.25 mg or 0.5 mg (2 mg/3 mL) pen injector 0.25 mg SQ WEEKLY Referrals Follow up/Referrals: Janet Chapman PA [Primary Care Provider, Medical] - See instructions Activity Restrictions/Add. Instructions Additional Instructions/Restrictions: Increase fluids. Take insulin as directed. Take Zofran as directed. If not improving please return to the ED. Clinical Impressions Clinical Impression: Hyperglycemia due to type 2 diabetes mellitus Instructions Patient Instructions: DI for Hyperglycemia -- Adult Print Language Print Language: Belgian Discharge ED Provider: Bay Fountain General Adult HPI General Chief complaint: Nausea/Vomiting/Diarrhea Stated complaint: High blood sugar 422,nausea Time Seen by Provider: 06/28/25 18:10 Mode of Arrival: Ambulatory Source of Information: Patient Description of Symptoms (Recalled from ER Triage Doc. by RN): mick presents to the ED today for nausea and vomiting. Patient recently switched from ozympic to Victoza. patient states she just doesnt feed right . History of Present Illness HPI narrative: 49-year-old female presents to the ED today for complaint of nausea and elevated glucose. She says her glucose has been running 350-450 all day. She says she started taking a new medication on Tuesday. She says she has been sick all day. She has been taking Zofran and it is not helping. She says she talked to her PCP and they sent in a medicine but she will not be able to get it until Tuesday. Her last A1c was 10. She and her PCP have been working on this. Related Data Home Medications ?Medication ?Instructions ?Recorded ?Confirmed atorvastatin 20 mg tablet 20 mg PO HS 06/16/24 5 brexpiprazole 1 mg tablet (Rexulti) 1 mg PO DAILY 05/2506/04/25 escitalopram oxalate 20 mg tablet 20 mg PO DAILY 06/1606/04/25 semaglutide 0.25 mg or 0.5 mg (2 0.25 mg SQ WEEKLY 06/04/25 mg/3 mL) subcutaneous pen injector (Ozempic) cholecalciferol (vitamin D3) 50 50 mcg PO DIRECTED SUPPLIMENT 01/21/25 06/04/25 mcg (2,000 unit) capsule tramadol 25 mg tablet 25 mg PO Q6H PRN 06/04/25 Previous Rx's ?Medication ?Instructions ?Recorded albuterol sulfate 90 mcg/actuation 2 inh inhalation Q6 H PRN shortness 06/16/24 aerosol inhaler of breath or wheezing #6.7 g rocío lidocaine 5 % topical patch 1 patch topical DAILY #15 ea 01/21/25 lisinopril 10 mg tablet See Rx Instructions .Route 0 02/01/25 .COMPLEX #30 tabs estradiol 0.01% (0.1 mg/gram) 1 appful vaginal DAILY # 42.5 grams 02/25/25 vaginal cream (Estrace) oxybutynin chloride 10 mg 10 mg PO DAILY #90 tabs 03/17 tablet,extended release 24 hr cyclobenzaprine 5 mg tablet 5 mg PO TID PRN muscle spa sm #20 03/18/25 tabs ondansetron 4 mg disintegrating 4 mg PO Q8H PRN nausea and 06/28/25 tablet vomiting 5 days #20 tabs Allergies Allergy/AdvReac Type Severity Reaction Status Date / Time morphine Allergy Abdominal Verified 06/04/25 14:21 Pain cariprazine (From Vraylar) AdvReac Intermediate tics Verified 06/04/25 14:21 Opioids - Morphine Analogues AdvReac Intermediate Vomiting Verified 06/04/25 14:21 acetaminophen (From Lortab) AdvReac Mild Vomiting Verified 06/04/25 14:21 hydrocodone (From Lortab) AdvReac Unknown Verified 06/04/25 14:21 allergy reaction metformin AdvReac Vomiting Verified 06/04/25 14:[address] [facility] Disclaimer: The information contained in this section may have been updated after the patient was seen, as this information can be updated by other users. Medical History Sinusitis Nasal congestion Piriformis syndrome Back pain Left otitis media Viral respiratory illness Otitis media H. pylori infection Diarrhea Myalgia Chills Fever IBS (irritable bowel syndrome) Asthma Mouth ulcer Neuroforaminal stenosis of lumbar spine Herniation of lumbar intervertebral disc with radiculopathy Radicular pain of both lower extremities Lumbar canal stenosis Diabetes Neuropathy Low back pain History of rheumatic fever Urinary incontinence Hyperlipidemia Fibromyalgia Hypertension Perioral dermatitis Vitamin D deficiency (~08/19/18) Hand pain, left Depression Surgical History History of lumbar fusion History of section History of hand surgery CMC joint bilateral History of hysterectomy partial H/O lumbar discectomy Family History Other Diabetes FHx: mental illness Family history of cancer Hyperlipidemia Hypertension Social History Smoking Status: Never smoker second hand exposure: Yes alcohol intake: current alcohol intake frequency: holidays/special occasions only substance use type: denies use current occupational status: unemployed Travel in the last 8 weeks?: None household members: spouse housing: house current occupational exposures/hazards: No caffeine: Yes Have you lived/traveled outside US in past 30 days?: No Contact w/someone who lives/traveled outside US past 30 days?: No Exposure to someone with infectious disease in past 14 days?: No Do you have a fever (greater than 100.4 F or 38 C)?: No Have you tested positive for COVID-19?: No Exposed to someone with COVID-19 in past 14 days?: No Do you have a sore throat?: No Do you have a cough?: No Do you have any weakness?: No Do you have any diarrhea?: No Are you experiencing any unusual bleeding?: No Do you have any muscle aches/pain?: No Do you have any abdominal pain?: No Are you experiencing loss of taste or smell?: No Other Medical History Have you received the Flu Vaccine for this season: Yes Have you received the Pneumonia Vaccine: No ROS Obtained: Yes Systems reviewed as appropriate & no additional complaints except as documented Constitutional Constitutional: Reports as per HPI Physical Exam General General appearance: alert and in no apparent distress Head Head exam: normocephalic Eye Eye exam: Present PERRL and EOMI ENT ENT exam: Present normal oropharynx and mucous membranes moist Neck Neck exam: Present full ROM and trachea midline Respiratory Respiratory exam: Present normal lung sounds bilaterally Cardiovascular Cardiovascular exam: Present regular rate, normal rhythm, normal heart sounds, +S1 and +S2 Abdominal Exam Abdominal exam: Present soft and normal bowel sounds Extremities Exam Extremities exam: Present normal inspection and full ROM Neurological Exam Neurological exam: Present alert and oriented X3 Skin Skin exam: Present warm, dry and intact Medical Decision Making Medical Records Screening: Per USPSTF and CDC recommendations, given the prevalence of disease in our region, it is our hospital?s policy to screen for HIV and viral Hepatitis for all patients aged 18 and over and those with ongoing risk factors. Wali Inquiry Pt receiving controlled substance: No Wali was queried for this patient: No Vital Signs: 06/28/25 17:15 06/28/25 18:30 06/28/25 19:00 Temperature 98.0 F Temperature Source Temporal Artery Scan Pulse Rate Pulse Rate [Left Radial] 75 Respiratory Rate 18 19 14 Blood Pressure 154/73 H 166/77 H Blood Pressure [Left Arm] 161/88 H Blood Pressure Mean [Left Arm] 112 Blood Pressure Source [Left Arm] Automatic Cuff Blood Pressure Position Blood Pressure Position [Left Arm] Sitting 02 Sat by Pulse Oximetry 98 Oxygen Delivery Method Room Air 06/28/25 19:30 06/28/25 21:15 Temperature 98 F Temperature Source Oral Pulse Rate 68 Pulse Rate [Left Radial] Respiratory Rate 14 16 Blood Pressure 156/71 H 148/72 H Blood Pressure [Left Arm] Blood Pressure Mean [Left Arm] Blood Pressure Source [Left Arm] Blood Pressure Position Sitting Blood Pressure Position [Left Arm] 02 Sat by Pulse Oximetry Oxygen Delivery Method Room Air Lab Data Lab Results 06/28/25 17:25: WBC 10.5, RBC 4.34, Hgb 13.2, Hct 39.7, MCV 91.5, MCH 30.4, MCHC 33.2, RDW 11.9, Plt Count 323, MPV 9.8, Neut % (Auto) 59.3, Lymph % (Auto) 32.1, Mcnairy % (Auto) 6.2, Eos % (Auto) 1.2, Baso % (Auto) 0.8, Neut # (Auto) 6.2, Lymph # (Auto) 3.4, Mcnairy # (Auto) 0.7, Eos # (Auto) 0.1, Baso # (Auto) 0.1, Sodium 132 L, Potassium 4.1, Chloride 100, Carbon Dioxide 25, Anion Gap 11.1, BUN 16, Creatinine 0.70, Estimated Creat Clear 165, Estimated GFR 88, Est GFR ( Amer) 107, Glucose 316 H, Calcium 9.6, Magnesium 1.7, Total Bilirubin 0.4, AST 102 H, ALT 130 H, Alkaline Phosphatase 109, Total Protein 7.6, Albumin 4.4, Globulin 3.2, Albumin/Globulin Ratio 1.4, Lipase 159 06/28/25 17:25: Lipase 182, Acetone Level None detected 06/28/25 17:58: Urine Color Yellow, Urine Appearance Clear, Urine pH 7.5, Ur Specific [place] 1.020, Urine Protein Negative, Urine Glucose (UA) 3+, Urine Ketones Negative, Urine Blood Negative, Urine Nitrate Negative, Urine Bilirubin Negative, Urine Urobilinogen 0.2, Ur Leukocyte Esterase Negative, Urine RBC None, Urine WBC None, Ur Squamous Epith Cells Occasional, Urine Bacteria Trace, Urine Yeast 1+ 06/28/25 18:23: SARS-CoV-2 (PCR) Not detected, Influenza A Untype (PCR) Not detected, Influenza Type B (PCR) Not detected 06/28/25 18:44: VBG pH 7.39, VBG pCO2 52.6 H, VBG pO2 52.1 H, VBG HCO3 31.2 H, V BG Total CO2 32.8 H, VBG O2 Saturation 87.0 H, VBG Base Excess 6.3 H, VBG Lactic Acid 2.4 H 06/28/25 20:25: POC Glucose 217 H 06/28/25 17:25 06/28/25 17:25 Orders (Tests/Meds): ED MEDICATIONS Discontinued Medications Generic Name Dose Route Start Last Admin Trade Name Freq PRN Reason Stop Dose Admin Famotidine 20 mg 06/28/25 18:15 06/28/25 18:57 Famotidine 20mg/2ml Vial IV 06/28/25 18:16 20 mg ONCE ONE Administration Sodium Chloride 1,000 mls @ 999 mls/hr 06/28/25 18:15 06/28/25 20:14 Sod Chlor 0.9% 1000ml Bag IV 06/28/25 19:15 Infused .Q1H1M ONE Infusion Ketorolac Tromethamine 30 mg 06/28/25 18:18 06/28/25 18:56 Ketorolac 30mg/Ml Vial IV 06/28/25 18:19 30 mg ONCE ONE Administration Ondansetron HCl 4 mg 06/28/25 17:28 06/28/25 17:30 Ondansetron 4mg Odt SL 06/28/25 17:29 4 mg ONCE ONE Administration Promethazine HCl 12.5 mg 06/28/25 18:16 06/28/25 18:56 Promethazine Hcl 25mg/Ml 1ml Vial IV 06/28/25 18:17 12.5 mg ONCE ONE Administration Sodium Chloride 8 ml 06/28/25 18:15 06/28/25 18:57 Sodium Chloride 0.9% 10ml Vial IV 07/28/25 18:14 8 ml NEEDED PRN Administration dilute pepcid Sodium Chloride 25 ml 06/28/25 18:16 06/28/25 18:56 Sodium Chloride 0.9% 25ml Bag IV 06/28/25 18:17 25 ml ONCE ONE Administration ORDERS Category Date Time Status Acetone, Serum (Rapid) Stat Lab 06/28/25 17:25 Completed Complete Blood Count Auto Diff Stat Lab 06/28/25 17:25 Completed Comprehensive Metabolic Panel Stat Lab 06/28/25 17:25 Completed Lipase Stat Lab 06/28/25 17:25 Completed Lipase Stat Lab 06/28/25 17:25 Completed Magnesium Stat Lab 06/28/25 17:25 Completed POC Glucose,Bedside Routine Lab 06/28/25 20:25 Completed Rapid PCR Covid and Flu A/B Stat Lab 06/28/25 18:23 Completed Urinalysis and Microscopic Stat Lab 06/28/25 17:58 Completed VBG [Venous Blood Gas] Stat RT 06/28/25 18:44 Completed Medical Decision Narrative: patient is a 49-year-old female presenting to the emergency department for evaluation of nausea, vomiting elevated glucose, headache. Patient is hemodynamically stable and nontoxic-appearing upon arrival, afebrile. Differential diagnosis includes hyperglycemia, viral illness, DKA, among others. Workup will be conducted with hematologic labs, specific imaging. Initial inventions include crystalloid bolus, analgesics. Initial workup reviewed by me hematologic labs are remarkable for elevated glucose 316 and initially and repeat glucose was 217. Patient has had IV fluids and nausea meds. Patient feels much improved. She would like to go home. Discussed with patient that she needs to get insulin that her PCP called in for her. I will call in Darlingfran for her. Patient safe for discharge home. Critical Care Critical Care Time Critical Care Time: No
[2025-06-28 18:30] VITALS: BP 154/73; RESP 19
[2025-06-28 18:32] LABS: Lipase 182 U/L (23-300)
[2025-06-28 18:33] LABS: Magnesium 1.7 mg/dl (1.6-2.3)
[2025-06-28 18:47] LABS: Coronavirus 19, PCR Not Detected (NotDetected); Influenza A, PCR Not Detected (NotDetected); Influenza B, PCR Not Detected (NotDetected)
[2025-06-28 18:54] LABS: Bilirubin,Urine Negative (Negative); Color,Urine YELLOW (Yellow); Glucose,Urine (UA) 3+ (Negative); Ketones,Urine Negative (Negative); Leukocyte Esterase,Urine Negative (Negative); PH,Urine 7.5 (5.0-8.5); Protein,Urine Negative (Negative); Specific Gravity, Urine 1.020 (1.005-1.030); Urobilinogen,Urine 0.2 EU/dl (0.2)
[2025-06-28] MEDS: KETOROLAC 30MG/ML VIAL 30 MG IV (18:56)
[2025-06-28] MEDS: PROMETHAZINE HCL 25MG/ML 1ML VIAL 12.5 MG IV (18:56)
[2025-06-28] MEDS: SODIUM CHLORIDE 0.9% 25ML BAG 25 ML IV (18:56)
[2025-06-28] MEDS: 0.9 % SODIUM CHLORIDE 1000ML 1,000 ML 999 ML IV (18:56)
[2025-06-28] MEDS: FAMOTIDINE 20MG/2ML VIAL 20 MG IV (18:57)
[2025-06-28] MEDS: SODIUM CHLORIDE 0.9% 10ML VIAL 8 ML IV (18:57)
[2025-06-28 19:00] VITALS: BP 166/77; RESP 14
[2025-06-28 19:03] LABS: VBG HCO3 31.2 mmol/L (23-30); VBG PH 7.39 mmol/L (7.31-7.41); VBG PO2 52.1 mmol/L (28-40)
[2025-06-28 19:09] LABS: Lactate Venous 2.4 mmol/L (0.4-2.0); VBG PCO2 52.6 mmol/L (35-51)
--- NOTE | 2025-06-28 19:20 | PC.NURSE ---
VBG results called, notified
[2025-06-28 19:24] LABS: Acetone, Serum (Rapid) None Detected (None Detect)
[2025-06-28 19:30] VITALS: BP 156/71; RESP 14
[2025-06-28 20:23] LABS: Bacteria,Urine Trace /lpf; Squamous Epithelial Cell,Urine Occasional #/hpf (0-5)
[2025-06-28 20:32] LABS: POC Glucose,Bedside 217 gm/dL (70-110)
[2025-06-28 21:15] VITALS: BP 148/72; PULSE 68; RESP 16; TEMP 36.6; O2SAT 98
[2025-06-28 23:08] LABS: Reflex Lactic Add Lactic Reflex
== END 2025-06-28 21:16 | disposition home or self-care (01) ==
PROVIDERS: Nurse Practitioner; Emergency Provider Student in an Organized Health Care Education/Training Program; PCP Physician Assistant
DX: E11.65 Type 2 diabetes mellitus with hyperglycemia (principal); E87.1 Hypo-osmolality and hyponatremia; R11.0 Nausea
CPT/HCPCS: 80053; 81001; 82009; 82803; 82962; 83690; 83735; 85025; 87636; 96361; 96374; 96375; 99284; 99285; J1885; J2550; J7030; Q0162

== ENCOUNTER 2025-07-02 13:30 | Day surgery (SDC) | payer OTHER, SELFPAY ==
[2025-07-02 13:40] VITALS: BP 157/77; PULSE 87; RESP 18; O2SAT 96; BMI 36.9
[2025-07-02 13:47] LABS: POC Glucose,Bedside 338 gm/dL (70-110)
[2025-07-02] MEDS: LIDOCAINE 1% 5ML PF VIAL 5 ML (13:48)
[2025-07-02 13:49] VITALS: BP 153/79; PULSE 96; RESP 18; O2SAT 96
[2025-07-02] MEDS: BUPIVACAINE 0.25% 10ML INJ 25 MG IJ (13:49)
[2025-07-02 13:52] VITALS: BP 153/79; PULSE 96; RESP 18; O2SAT 96
--- NOTE | 2025-07-02 13:54 | P.PCN_ITS ---
Procedure Date: 07/02/25 Time: 13:45 Anesthesiologist:: Manny Lea CRNA Complications:: None Pre-procedure Diagnosis:: Bilateral sacroiliitis Post-procedure Diagnosis:: Same Indications for Procedure:: Patient is a pleasant 49-year-old female who comes our clinic today for bilatera l sacroiliac joint injection of local anesthetic for diagnostic purpose. She describes low lumbar back pain off the midline bilaterally. Bilateral posterior hip pain. Difficulty transitioning from sitting to standing. She rates her pain 7/10. Procedure Details:: Procedure: Bilateral sacroiliac joint injections under fluoroscopy Informed consent was obtained and the risks and benefits of the procedure were explained to the patient.~ The patient was taken to the procedure room and noninvasive monitors were placed including a noninvasive blood pressure cuff and pulse oximeter.~ The patient was placed prone on the procedure table. Both hips were cleansed using Betadine as a cleansing solution. C-arm fluoroscopy was used to view the right sacroiliac joint.~ The skin and subcutaneous tissues were anesthetized using lidocaine 1.5% and a 25-gauge needle.~ After this, a 22-gauge spinal needle was inserted under fluoroscopic guidance into the inferior aspect of the right sacroiliac joint.~ Omnipaque dye was injected and good spread was seen throughout the joint.~ After this, approximately 5 mL of bupivacaine, 0.25% was incrementally injected into the right sacroiliac joint. We then moved to the left sacroiliac joint.~ The skin and subcutaneous tissues were anesthetized using lidocaine 1.5% and a 25-gauge needle.~ After this, a 22-gauge spinal needle was inserted under fluoroscopic guidance into the inferior aspect of the left sacroiliac joint.~ Omnipaque dye was injected and good spread was seen throughout the joint. After this, approximately 5 mL of bupivacaine, 0.25% was incrementally injected into the left sacroiliac joint.~ The patient tolerated the procedure well with no complications. The patient was observed in the Pain Clinic and then was discharged home neurologically intact. Plan and Disposition:: Patient was discharged without incident.
[2025-07-02 13:57] VITALS: BP 142/79; PULSE 84; RESP 16; O2SAT 96
== END 2025-07-02 13:57 | disposition home or self-care (01) ==
PROVIDERS: PCP Physician Assistant; Visit Provider Nurse Anesthetist, Certified Registered
DX: M46.1 Sacroiliitis, not elsewhere classified (principal); J45.909 Unspecified asthma, uncomplicated; F32.A Depression, unspecified; M79.7 Fibromyalgia; E78.5 Hyperlipidemia, unspecified; I10 Essential (primary) hypertension; E11.9 Type 2 diabetes mellitus without complications; Z87.891 Personal history of nicotine dependence; Z88.5 Allergy status to narcotic agent; Z88.6 Allergy status to analgesic agent; Z88.8 Allergy status to other drugs, medicaments and biological substances; Z79.85 Long-term (current) use of injectable non-insulin antidiabetic drugs; Z79.899 Other long term (current) drug therapy; Z79.891 Long term (current) use of opiate analgesic
CPT/HCPCS: 64450; 82962; J0665; J2003

== ENCOUNTER 2025-07-15 09:48 | Outpatient (CLI) | payer OTHER, SELFPAY ==
--- OUTSIDE RECORDS SUMMARY | 2025-04-24 13:40 | XMS_ITS | Encounter Summary ---
Author Organization [facility] Address [address] [place] [address] Care Team Providers Care Kiln Pusher Name Role Phone Janet Chapman Primary Care Provider [phone] Clarence Rubin MD Unavailable Frankie Dalton MD Unavailable [phone] Frankie Dalton MD Unavailable [phone] Celi Winter Unavailable [phone] Norberto West MD Unavailable [phone] Encounter Details Date Type Department Care Team (Late st Contact Info) Description 04/24/2025 1:40 PM EDT [facility] Visit [facility] [address] [place] [address] Norberto West MD [address] [place] [address] S/P lumbar fusion (Primary Dx); [...] coordination of care. I spent >50% in gxkj-va-stip communication with the patient over the diagnosis, treatment options and plan. Norberto West MD MS Au Pair of Neurosurgery Complex and Minimally Invasive Spine Surgery [address] [place] [address] [place], [address] Addendum 05/23/2025: Physical therapy notes have been [...] Description 08/07/2025 12:40 PM EDT Office Visit [facility] Orthopaedic Surgery & Sports Medicine [address] [place] [address] Norberto West MD [address] [place] [address] documented as of this encounter [...] documented as of this encounter Care Teams Kiln Pusher Relationship Specialty Start Date End Date aJnet Chapman PA [address] [place] [address] PCP - General 06/23/21 Clarence Rubin MD [address] [place] [address] Surgeon Neurosurgery 06/23/21 Frankie Dalton MD [address] [place] [address] Surgeon Neurosurgery 10/13/21 Frankie Dalton MD [address] [place] [address] Surgeon Neurosurgery 12/15/21 Celi Winter PA [address] [place] [address] Physician Product Representative Neurosurgery 04/01/22 Norberto West MD [address] [facility] [address] [place] [address] Surgeon Neurosurgery 10/29/24 documented as of this encounter
--- NOTE | 2025-07-15 09:51 | US_ITS ---
PROCEDURE INFORMATION: Exam: US Left Breast, Complete MG Left Diagnostic Breast Tomosynthesis MG Radiologist Consultation Exam date and time: 07/15/2025 10:16 AM Age: 49 years old Clinical indication: Region of pain, erythema, swelling, and palpable concern in the left breast. TECHNIQUE: Imaging protocol: Complete ultrasound of all four quadrants of the left breast and the retroareolar regions, including ultrasound of the axilla when performed. Left Diagnostic tomosynthesis and 2D mammography including computer-aided detection (CAD) when performed. Unilateral or bilateral exam. This study was interpreted in real time. The patient was informed of the results. COMPARISON: 1. MG MM DIG SCREENING MAMM BI W/CAD 08/13/2024 10:15 AM 2. MG MM DIG SCREENING MAMM BI W/CAD 08/10/2023 8:21 AM FINDINGS: MAMMOGRAPHY: Breast composition: There are scattered areas of fibroglandular density. Breast mammogram findings: Left breast full field CC and MLO tomosynthesis views were obtained. Left breast spot compression views were also obtained. Mass: 9.0 cm mass underlying the palpable marker in the left subareolar breast. Architectural distortion: None. Calcifications: No suspicious calcifications. Asymmetric density: None. Skin thickening: None. Axillary adenopathy: None. ULTRASOUND: Breast ultrasound findings: Left breast ultrasound: Large complex fluid collection measuring at least 9 cm extending to the lower outer and lower inner quadrants corresponding to the mass noted on mammography. There is overlying skin thickening. Prominent left axillary lymph nodes are noted. IMPRESSION: 1. Large complex fluid collection corresponding to the left breast region of palpable concern concerning for abscess. Recommend three-month follow-up left breast ultrasound to ensure resolution following treatment. 2. Left axillary lymph nodes, likely reactive. ASSESSMENT: BI-RADS Category 3: Probably benign.
--- OUTSIDE RECORDS SUMMARY | 2025-07-15 10:06 | XMS_ITS | Encounter Summary ---
Author Organization [facility] Address [address] [place] [address] Care Team Providers Care Loan Assistant Name Role Phone Janet Chapman Primary Care Provider [phone] Clarence Rubin MD Unavailable Frankie Dalton MD Unavailable [phone] Frankie Dalton MD Unavailable [phone] Celi Murrell Unavailable [phone] Norberto West MD Unavailable [phone] Encounter Details Date Type Department Care Team (Late Contact Info) Description 05/27/2025 Orders Only External Location [address] [place] [address] Provider, External Social History Tobacco Use Types [...] Orthopaedic Surgery & Sports Medicine [address] [place] [address] Norberto West MD [address] [place] [address] documented as of this encounter [...] documented as of this encounter Care Teams Loan Assistant Relationship Specialty Start Date End Date Janet Chapman PA [address] [place] [address] PCP - General 06/23/21 Clarence Rubin MD [address] [place] [address] Surgeon Neurosurgery 06/23/21 Frankie Dalton MD [address] [place] [address] Surgeon Neurosurgery 10/13/21 Frankie Dalton MD [address] [place] [address] Surgeon Neurosurgery 12/15/21 Celi Murrell PA [address] [facility] [place] [address] Physician Banking Teacher Neurosurgery 04/01/22 Norberto West MD [address] [facility] [place] [address] Surgeon Neurosurgery 10/29/24 documented as of this encounter
--- OUTSIDE RECORDS SUMMARY | 2025-07-15 10:06 | XMS_ITS | Clinical Summary ---
Author Organization [facility] Address [address] [place] [address] Care Team Providers Care Fisher Scallop Name Role Phone Janet Chapman Primary Care Provider [phone] Allergies No known active allergies Medications escitalopram [...] 2023 ZOSTER VACCINE (1 of 2) 2023 INFLUENZA VACCINE 05/24/2025 08/15/2018, 08/15/2018 Insurance [facility] Care Teams Fisher Scallop Relationship Specialty Start Date End Date Janet Chapman PA PCP - General Physician Cork Compounder 07/14/21
--- OUTSIDE RECORDS SUMMARY | 2025-07-15 10:06 | XMS_ITS | Encounter Summary ---
Author Organization [facility] Address [address] [place] [address] Care Team Providers Care Five Roll Refiner Batch Mixer Name Role Phone Janet Chapman Primary Care Provider [phone] Clarence Rubin MD Unavailable Frankie Dalton MD Unavailable [phone] Frankie Dalton MD Unavailable [phone] Celi Murrell Unavailable [phone] Norberto West MD Unavailable [phone] Encounter Details Date Type Department Care Team (Late st Contact Info) Description 12/25/2021 Orders Only External Location [address] [place] [address] Celi Murrell PA [address] [facility] [address] [place] [address] Social History Tobacco Use Types Packs/Day Years [...] Orthopaedic Surgery & Sports Medicine [address] [place] [address] Norberto West MD [address] [place] [address] documented as of this encounter [...] documented as of this encounter Care Teams Five Roll Refiner Batch Mixer Relationship Specialty Start Date End Date Janet Chapman PA [address] [place] [address] PCP - General 06/23/21 Clarence Rubin MD [address] [place] [address] Surgeon Neurosurgery 06/23/21 Frankie Dalton MD [address] [place] [address] Surgeon Neurosurgery 10/13/21 Frankie Dalton MD [address] [place] [address] Surgeon Neurosurgery 12/15/21 Celi Murrell PA [address] [place] [address] Physician Case Liner Neurosurgery 04/01/22 Norberto West MD [address] [place] [address] Surgeon Neurosurgery 10/29/24 documented as of this encounter
--- OUTSIDE RECORDS SUMMARY | 2025-07-15 10:06 | XMS_ITS | Encounter Summary ---
Author Organization [facility] Address [address] [place] [address] Care Team Providers Care Unloader Name Role Phone Janet Chapman Primary Care Provider [phone] Clarence Rubin MD Unavailable Frankie Dalton MD Unavailable [phone] Frankie Dalton MD Unavailable [phone] Celi Murrell Unavailable [phone] Norberto West MD Unavailable [phone] Encounter Details Date Type Department Care Team (Late st Contact Info) Description 03/17/2021 Orders Only [place] [facility] [address], [address]st [place] [address] Des Da Silva MD [address] [place] [address] Lumbar radiculopathy (Primary Dx) Social [...] Description 08/07/2025 12:40 PM EDT Office Visit [facility] Orthopaedic Surgery & Sports Medicine [address], [address] [place] [address] Norberto West MD [address] [place] [address] documented as of this encounter Visit Diagnoses Diagnosis Lumbar radiculopathy- Primary Thoracic or lumbosacral neuritis or radiculitis, unspecified documented in this encounter Care Teams Unloader Relationship Specialty Start Date End Date Janet Chapman PA [address] [facility] [address] PCP - General 06/23/21 Clarence Rubin MD [address] [place] [address] Surgeon Neurosurgery 06/23/21 Frankie Dalton MD [address] [place] [address] Surgeon Neurosurgery 10/13/21 Frankie Dalton MD [address] [place] [address] Surgeon Neurosurgery 12/15/21 Celi Murrell PA [address] [place] [address] Physician Branch Controller Neurosurgery 04/01/22 Norberto West MD [address] [place] [address] Surgeon Neurosurgery 10/29/24 documented as of this encounter
--- OUTSIDE RECORDS SUMMARY | 2025-07-15 10:06 | XMS_ITS | Encounter Summary ---
Author Organization [facility] Address [address] [place] [address] Care Team Providers Care Wage And Salary Specialist Name Role Phone Janet Chapman Primary Care Provider [phone] Clarence Rubin MD Unavailable Frankie Dalton MD Unavailable [phone] Frankie Dalton MD Unavailable [phone] Celi Murrell Unavailable [phone] Norberto West MD Unavailable [phone] Reason for Visit * Reason Onset Date Comments HCN - Patient Message 05/24/2025 Encounter Details Date Type Department Care Team (Late st Contact Info) Description 05/24/2025 Telephone [facility] [address] [place] [address] Norberto West MD [address] [place] [address] HCN - Patient Message Social [...] her know that everything was fxd to [facility] this morning and they will contact her to schedule. She verbalized understanding. * Telephone Encounter - Eden Bonilla - 05/24/2025 8:58 AM EDT Patient Phone Message Reason for Call: [facility] told her MRI was to be done at [facility] has no orders at this time Where will MRI be scheduled ? Best contact number and optimal time of day to reach caller: Pt / [phone] Note: Please do not reply to this message. Follow-up communication and further actions as a result of this message need to be communicated with the patient directly, if the patient is not active onMyChart. If the patient is active on MyChart, they will receive notification of the communication/outcome via SRE [place] - 2t. documented in this encounter Plan of Treatment Upcoming Encounters Date Type Department Care Team (Late st Contact Info) Description 08/07/2025 12:40 PM EDT Office Visit [facility] Orthopaedic Surgery & Sports Medicine [address] [place] [address] Norberto West MD [address] [place] [address] documented as of this encounter Visit Diagnoses Not on filedocumented in this encounter Additional Health Concerns Assessment Noted Time A fall risk assessment has been complete d for the patient 04/24/2025 2:23 PM EDT A Body Mass Index follow-up plan has been documented for the patient 04/24/2025 3:24 PM EDT documented as of this encounter Care Teams Wage And Salary Specialist Relationship Specialty Start Date End Date Janet Chapman PA [address] [place] [address] PCP - General 06/23/21 Clarence Rubin MD [address] [place] [address] Surgeon Neurosurgery 06/23/21 Frankie Dalton MD [address] [place] [address] Surgeon Neurosurgery 10/13/21 Frankie Dalton MD [address] [place] [address] Surgeon Neurosurgery 12/15/21 Celi Murrell PA [address] [place] [address] Physician Landscaping Supervisor Neurosurgery 04/01/22 Norberto West MD [address] [place] [address] Surgeon Neurosurgery 10/29/24 documented as of this encounter
--- OUTSIDE RECORDS SUMMARY | 2025-07-15 10:06 | XMS_ITS | Clinical Summary ---
Author Organization [facility] Address [address] [place] [address] Care Team Providers Care It Business Analyst Name Role Phone Janet Chapman Primary Care Provider [phone] Clarence Rubin MD Unavailable Frankie Dalton MD Unavailable [phone] Frankie Dalton MD Unavailable [phone] Celi Murrell Unavailable [phone] Norberto West MD Unavailable [phone] Allergies Active Allergy Reactions Criticality Noted [...] (1 mg). 4 Active ergocalciferol 1.25 MG (88661 UT) capsule Takes on Sundays 4 Active [...] Low back pain 08/18/2020 Finger pain 03/30/2019 Muscle pain 12/26/2013 Resolved Problems Problem Noted Date Diagnosed Date Resolved Date Osteoarthritis 03/23/2016 07/14/2025 Encounters Date Type Department Care Team Description 05/31/2025 Orders Only [place] [address], [address] [place] [address] Celi Murrell PA Status post lumbar spinal fusion (Primary Dx); Low back pain, unspecified back pain laterality, unspecified chronicity, unspecified whether sciatica present; Lumbar spondylosis; Bilateral lower extremity pain; Lumbar radiculopathy 05/27/2025 Orders Only External Location [address] [place] [address] Provider, External 05/24/2025 Telephone [place] [address] [address] Norberto West MD HCN - Patient Message 05/23/2025 Orders Only [place] [address], [address] [place] [address] Celi Murrell PA Status post lumbar spinal fusion (Primary Dx); Low back pain, unspecified back pain laterality, unspecified chronicity, unspecified whether sciatica present; Bilateral lower extremity pain; Lumbar radiculopathy; Lumbar spondylosis 04/24/2025 1:40 PM EDT Office Visit [facility] Orthopaedic Surgery & Sports Medicine [address], [address] [place] [address] Norberto West MD S/P lumbar fusion (Primary Dx); Sacroiliac joint pain 04/24/2025 9:44 AM EDT - 04/24/2025 11:59 PM EDT Hospital Encounter [facility] Radiology [address], [address] [place] [address] Status post lumbar spinal fusion Discharge Disposition: Home or Self Care 04/24/2025 Travel 04/23/2025 Orders Only [facility] [address], [address] [place] [address] Norberto West MD Status post lumbar spinal fusion (Primary Dx) 04/18/2025 Travel from Last 3 Months Immunizations Immunization [...] Mother SWETA Depression Mother SWETA Diabetes Mother SOL Hypertension Mother SOL Rheumatologic [...] Description 08/07/2025 12:40 PM EDT Office Visit [facility] Orthopaedic Surgery & Sports Medicine [address], [address] [place] [address] Norberto West MD [address] [place] [address] Health Maintenance Due Date Last [...] 2023 [facility]-Zoster Vaccines (1 of 2) 2023 [id number] Vaccine ( season) 2025 [facility]-Influenza Vaccine (#1) [...] this topic Medical Devices Implanted Type Area Publicity Writer Device Identifier Shelf Expiration Date Model / Serial / Lot Tlif-C Ui 12mm 8deg 20/08 - [id number] Implanted:Qty : 1 on 11/08/2024 by Norberto West MD at [facility] Cage N/A: Spine Lumbar DePuy Spine [employer] [id number] 03/23/2028 [id number] / / Lowell Viper2 Lordotic 45mm - [id number] Implanted:Qty : 2 on 11/08/2024 by Norberto West MD at [facility] Lowell N/A: Spine Lumbar DePuy Spine [employer] LP-[id number] 11/08/2025 [id number] / / Single Inner Setscrew - [id number] Implanted:Qty : 4 on 11/08/2024 by Norberto West MD at [facility] Screw N/A: Spine Lumbar DePuy Spine [employer] LP-[id number] 11/08/2025 [id number] / / Screw 7.0mm Viper Cfx Fen Xtab 50mm - [id number] Implanted:Qty : 4 on 11/08/2024 by Norberto West MD at [facility] Screw N/A: Spine Lumbar DePuy Spine [employer] [id number] 11/08/2025 [id number] / / Tissue Vivigen Formable 5.4cc Med Pk/4 - [id number] - [id number] Implanted:Qty : 1 on 11/08/2024 by Norberto West MD at [facility] Spine Lumbar [facility]-[id number] 10/04/2025 [id number] / [id number] / [id number] Procedures Procedure Name Priority Date/Time Associated Diagnosis [...] Patient has decision-making capacity? Yes Care Teams It Business Analyst Relationship Specialty Start Date End Date Janet Chapman PA [address] [place] [address] [facility] - General 06/23/21 Clarence Rubin MD [address] [place] [address] Surgeon Neurosurgery 06/23/21 Frankie Dalton MD [address] [place] [address] Surgeon Neurosurgery 10/13/21 Frankie Dalton MD [address] [place] [address] Surgeon Neurosurgery 12/15/21 Celi Murrell PA [address] [place] [address] Physician Tag Meter Operator Neurosurgery 04/01/22 Norberto West MD [address] [place] [address] Surgeon Neurosurgery 10/29/24
--- OUTSIDE RECORDS SUMMARY | 2025-07-15 10:06 | XMS_ITS | Encounter Summary ---
Author Organization [facility] Address [address] [place] [address] Care Team Providers Care News Broadcaster Name Role Phone Janet Chapman Primary Care Provider [phone] Clarence Rubin MD Unavailable Frankie Dalton MD Unavailable [phone] Frankie Dalton MD Unavailable [phone] Celi Murrell Unavailable [phone] Norberto West MD Unavailable [phone] Reason for Referral * Imaging (Urgent) - Authorized Specialty Diagnoses / Procedures Referred By Contac t Referred To Contact Diagnoses Status post lumbar spinal fusion Low back pain, unspecified back pain laterality, unspecified chronicity, unspecified whether sciatica present Lumbar spondylosis Bilateral lower extremity pain Lumbar radiculopathy Procedures CT Lumbar Spine wo IV Contrast Celi Murrell PA [address] [place] [address] Phone: tel: fax: Referral ID Status Reason Start Date Expiration Date V isits Requested Visits Authorized [id number] Authorized 05/31/2025 11/30/2026 1 1 Encounter Details Date Type Department Care Team (Late st Contact Info) Description 05/31/[address] [facility] [address], 1st [place] [address] Celi Murrell PA [id number] [place] [address] Status post lumbar spinal fusion [...] 12:40 PM EDT Office Visit [facility] Orthopaedic Surgery & Sports Medicine [address], [address] [place] [address] Norberto West MD [address] [address] Scheduled Orders Name Type Priority [...] documented as of this encounter Care Teams News Broadcaster Relationship Specialty Start Date End Date Janet Chapman PA [address] [facility] [place] [address] PCP - General 06/23/21 Clarence Rubin MD [address] [place] [address] Surgeon Neurosurgery 06/23/21 Frankie Dalton MD [address] [place] [address] Surgeon Neurosurgery 10/13/21 Frankie Dalton MD [address] [place] [address] Surgeon Neurosurgery 12/15/21 Celi Murrell PA [address] [place] [address] Physician Metal Cut Off Saw Tender Neurosurgery 04/01/22 Norberto West MD [address] [place] [address] Surgeon Neurosurgery 10/29/24 documented as of this encounter
--- OUTSIDE RECORDS SUMMARY | 2025-07-15 10:06 | XMS_ITS | Encounter Summary ---
Author Organization [facility] Address [address] [place] [address] Care Team Providers Care Clinical Operations Manager Name Role Phone Janet Chapman Primary Care Provider [phone] Clarence Rubin MD Unavailable Frankie Dalton MD Unavailable [phone] Frankie Dalton MD Unavailable [phone] Celi Murrell Unavailable [phone] Norberto West MD Unavailable [phone] Reason for Referral * Imaging (Urgent) - Authorized Specialty Diagnoses / Procedures Referred By Contac t Referred To Contact Diagnoses Status post lumbar spinal fusion Low back pain, unspecified back pain laterality, unspecified chronicity, unspecified whether sciatica present Bilateral lower extremity pain Lumbar radiculopathy Lumbar spondylosis Procedures MR Lumbar Spine wo IV Contrast Celi Murrell PA [address] [place] [address] Phone: tel: fax: Referral ID Status Reason Start Date Expiration Date V isits Requested Visits Authorized [id number] Authorized 05/23/2025 11/22/2026 1 1 Encounter Details Date Type Department Care Team (Late st Contact Info) Description 05/23/2025 Orders Only [facility] [address], [address] [place] [address] Celi Murrell PA [id number] [place] [address] Status post lumbar spinal fusion [...] Orthopaedic Surgery & Sports Medicine [address], [address] [place] [address] Norberto West MD [address] [address] Scheduled Orders Name Type Priority [...] as of this encounter Care Teams Clinical Operations Manager Relationship Specialty Start Date End Date Janet Chapman PA [address] [place] [address] PCP - General 06/23/21 Clarence Rubin MD [address] [place] [address] Surgeon Neurosurgery 06/23/21 Frankie Dalton MD [address] [place] [address] Surgeon Neurosurgery 10/13/21 Frankie Dalton MD [address] [place] [address] Surgeon Neurosurgery 12/15/21 Celi Murrell PA [address] [place] [address] Physician Substation Operator Automatic Neurosurgery 04/01/22 Norberto West MD [address] [place] [address] Surgeon Neurosurgery 10/29/24 documented as of this encounter
== END 2025-07-15 23:59 | disposition home or self-care (01) ==
LOC: RAD 09:49
PROVIDERS: PCP Physician Assistant; Visit Provider Physician Assistant
DX: N63.42 Unspecified lump in left breast, subareolar (principal); N64.89 Other specified disorders of breast; R92.322 Mammographic fibroglandular density, left breast; R92.8 Other abnormal and inconclusive findings on diagnostic imaging of breast
CPT/HCPCS: 76641; 77061; 77065; G0279

== ENCOUNTER 2025-07-16 10:58 | Observation (INO) | payer OTHER, SELFPAY ==
--- OUTSIDE RECORDS SUMMARY | 2025-04-24 13:40 | XMS_ITS | Encounter Summary ---
Author Organization [facility] Address [address] [place] [address] Care Team Providers Care Telephone Services Sales Representative Name Role Phone Janet Chapman Primary Care Provider [phone] Clarence Rubin MD Unavailable Frankie Dalton MD Unavailable [phone] Frankie Dalton MD Unavailable [phone] Celi Winter Unavailable [phone] Norberto West MD Unavailable [phone] Encounter Details Date Type Department Care Team (Late st Contact Info) Description 04/24/2025 1:40 PM EDT [facility] Visit [facility] [address] [place] [address] Norberto West MD [address] [place] [address] S/P lumbar fusion (Primary Dx); [...] coordination of care. I spent >50% in utlw-tn-pcxe communication with the patient over the diagnosis, treatment options and plan. Norberto West MD MS Twisthand of Neurosurgery Complex and Minimally Invasive Spine Surgery [address] [place] [address] [place], [address] Addendum 05/23/2025: Physical therapy notes have been [...] Description 08/07/2025 12:40 PM EDT Office Visit [facility] Orthopaedic Surgery & Sports Medicine [address] [place] [address] Norberto West MD [address] [place] [address] documented as of this encounter [...] documented as of this encounter Care Teams Telephone Services Sales Representative Relationship Specialty Start Date End Date Janet Chapman PA [address] [place] [address] PCP - General 06/23/21 Clarence Rubin MD [address] [place] [address] Surgeon Neurosurgery 06/23/21 Frankie Dalton MD [address] [place] [address] Surgeon Neurosurgery 10/13/21 Frankie Dalton MD [address] [place] [address] Surgeon Neurosurgery 12/15/21 Celi Winter PA [address] [place] [address] Physician Analytical Chemistry Teacher Neurosurgery 04/01/22 Norberto West MD [address] [facility] [address] [place] [address] Surgeon Neurosurgery 10/29/24 documented as of this encounter
[2025-07-16] VITALS (11 sets, daily range): BP systolic 135–164; BP diastolic 62–87; PULSE 74–89; RESP 14–18; TEMP 36.4–37.2; O2SAT 94–98; BMI 36.9; BMI 34.4
--- OUTSIDE RECORDS SUMMARY | 2025-07-16 11:21 | XMS_ITS | Clinical Summary ---
Author Organization [facility] Address [address] [place] [address] Care Team Providers Care Carrot Tier Name Role Phone Janet Chapman Primary Care Provider [phone] Allergies No known active allergies Medications escitalopram [...] 2023 INFLUENZA VACCINE 05/24/2025 08/15/2018, 08/15/2018 Insurance [facility] Care Teams Carrot Tier Relationship Specialty Start Date End Date Janet Chapman PA PCP - General Physician Animal Anatomist 07/14/21
--- OUTSIDE RECORDS SUMMARY | 2025-07-16 11:21 | XMS_ITS | Encounter Summary ---
Author Organization [facility] Address [address] [place] [address] Care Team Providers Care Institute Scientist Name Role Phone Janet Chapman Primary Care Provider [phone] Clarence Rubin MD Unavailable Frankie Dalton MD Unavailable Frankie Dalton MD Unavailable [phone] Celi Murrell Unavailable [phone] Norberto West MD Unavailable [phone] Encounter Details Date Type Department Care Team (Late st Contact Info) Description 12/25/2021 Orders Only External Location [address] [place] [address] Celi Murrell PA [address] [facility] [address] [place] [address] Social History Tobacco Use Types Packs/Day Years [...] Description 08/07/2025 12:40 PM EDT Office Visit [facility] Orthopaedic Surgery & Sports Medicine [address] [place] [address] Norberto West MD [address] [place] [address] documented as of this encounter [...] documented as of this encounter Care Teams Institute Scientist Relationship Specialty Start Date End Date Janet Chapman PA [address] [place] [address] PCP - General 06/23/21 Clarence Rubin MD [address] [place] [address] Surgeon Neurosurgery 06/23/21 Frankie Dalton MD [address] [place] [address] Surgeon Neurosurgery 10/13/21 Frankie Dalton MD [address] [place] [address] Surgeon Neurosurgery 12/15/21 Celi Murrell PA [address] [place] [address] Physician Can Labeler Neurosurgery 04/01/22 Norberto West MD [address] [place] [address] Surgeon Neurosurgery 10/29/24 documented as of this encounter
--- OUTSIDE RECORDS SUMMARY | 2025-07-16 11:21 | XMS_ITS | Encounter Summary ---
Author Organization [facility] Address [address] [place] [address] Care Team Providers Care Dryland Farmer Name Role Phone Janet Chapman Primary Care Provider [phone] Clarence Rubin MD Unavailable Frankie Dalton MD Unavailable [phone] Frankie Dalton MD Unavailable [phone] Celi Murrell Unavailable [phone] Norberto West MD Unavailable [phone] Encounter Details Date Type Department Care Team (Late Contact Info) Description 05/27/2025 Orders Only External Location [address] [place] [address] Provider, External Social History Tobacco Use Types [...] Orthopaedic Surgery & Sports Medicine [address] [place] [address] Norberto West MD [address] [place] [address] documented as of this encounter [...] documented as of this encounter Care Teams Dryland Farmer Relationship Specialty Start Date End Date Janet Chapman PA [address] [place] [address] PCP - General 06/23/21 Clarence Rubin MD [address] [place] [address] Surgeon Neurosurgery 06/23/21 Frankie Dalton MD [address] [place] [address] Surgeon Neurosurgery 10/13/21 Frankie Dalton MD [address] [place] [address] Surgeon Neurosurgery 12/15/21 Celi Murrell PA [address] [facility] [place] [address] Physician Underwriting Assistant Neurosurgery 04/01/22 Norberto West MD [address] [facility] [place] [address] Surgeon Neurosurgery 10/29/24 documented as of this encounter
--- OUTSIDE RECORDS SUMMARY | 2025-07-16 11:21 | XMS_ITS | Encounter Summary ---
Author Organization [facility] Address [address] [place] [address] Care Team Providers Care Web Press Operator Helper Offset Name Role Phone Janet Chapman Primary Care Provider [phone] Clarence Rubin MD Unavailable Frankie Dalton MD Unavailable [phone] Frankie Dalton MD Unavailable [phone] Ceil Murrell Unavailable [phone] Norberto West MD Unavailable [phone] Reason for Referral * Imaging (Urgent) - Authorized Specialty Diagnoses / Procedures Referred By Contac t Referred To Contact Diagnoses Status post lumbar spinal fusion Low back pain, unspecified back pain laterality, unspecified chronicity, unspecified whether sciatica present Lumbar spondylosis Bilateral lower extremity pain Lumbar radiculopathy Procedures CT Lumbar Spine wo IV Contrast Celi Murrell PA [address] [place] [address] Phone: tel: fax: Referral ID Status Reason Start Date Expiration Date V isits Requested Visits Authorized [id number] Authorized 05/31/2025 11/30/2026 1 1 Encounter Details Date Type Department Care Team (Late st Contact Info) Description 05/31/2025 Orders Only [facility] [address] [place] [address] Celi Murrell PA [id number] [place] [address] Status post lumbar spinal fusion [...] Orthopaedic Surgery & Sports Medicine [address] [place] [address] Norberto West MD [address] [address] Scheduled Orders Name Type Priority [...] as of this encounter Care Teams Web Press Operator Helper Offset Relationship Specialty Start Date End Date Janet Chapman PA [address] [facility] [place] [address] PCP - General 06/23/21 Clarence Rubin MD [address] [place] [address] Surgeon Neurosurgery 06/23/21 Frankie Dalton MD [address] [place] [address] Surgeon Neurosurgery 10/13/21 Frankie Dalton MD [address] [place] [address] Surgeon Neurosurgery 12/15/21 Celi Murrell PA [address] [place] [address] Physician Lead Machinist Neurosurgery 04/01/22 Norberto West MD [address] [place] [address] Surgeon Neurosurgery 10/29/24 documented as of this encounter
--- OUTSIDE RECORDS SUMMARY | 2025-07-16 11:21 | XMS_ITS | Encounter Summary ---
Author Organization [facility] Address [address] [place] [address] Care Team Providers Care Otr Van Cdl Truck Driver Name Role Phone Janet Chapman Primary Care Provider [phone] Clarence Rubin MD Unavailable Frankie Dalton MD Unavailable [phone] Frankie Dalton MD Unavailable [phone] Celi Murrell Unavailable [phone] Norberto West MD Unavailable [phone] Reason for Referral * Imaging (Urgent) - Authorized Specialty Diagnoses / Procedures Referred By Contac t Referred To Contact Diagnoses Status post lumbar spinal fusion Low back pain, unspecified back pain laterality, unspecified chronicity, unspecified whether sciatica present Bilateral lower extremity pain Lumbar radiculopathy Lumbar spondylosis Procedures MR Lumbar Spine wo IV Contrast Celi Murrell PA [address] [place] [address] Phone: tel: fax: Referral ID Status Reason Start Date Expiration Date V isits Requested Visits Authorized [id number] Authorized 05/23/2025 11/22/2026 1 1 Encounter Details Date Type Department Care Team (Late st Contact Info) Description 05/23/2025 Orders Only [facility] [address], [address] [place] [address] Celi Murrell PA [id number] [place] [address] Status post lumbar spinal fusion [...] Description 08/07/2025 12:40 PM EDT Office Visit [facility] Orthopaedic Surgery & Sports Medicine [address] [place] [address] Norberto West MD [address] [address] Scheduled Orders Name Type Priority [...] documented as of this encounter Care Teams Otr Van Cdl Truck Driver Relationship Specialty Start Date End Date Janet Chapman PA [address] [facility] [place] [address] PCP - General 06/23/21 Clarence Rubin MD [address] [place] [address] Surgeon Neurosurgery 06/23/21 Frankie Dalton MD [address] [place] [address] Surgeon Neurosurgery 10/13/21 Frankie Dalton MD [address] [place] [address] Surgeon Neurosurgery 12/15/21 Celi Murrell PA [address] [place] [address] Physician Frog Shaker Neurosurgery 04/01/22 Norberto West MD [address] [place] [address] Surgeon Neurosurgery 10/29/24 documented as of this encounter
--- OUTSIDE RECORDS SUMMARY | 2025-07-16 11:21 | XMS_ITS | Clinical Summary ---
Author Organization [facility] Address [address] [place] [address] Care Team Providers Care Core Java Engineer Name Role Phone Janet Chapman Primary Care Provider [phone] Clarence Rubin MD Unavailable Frankie Dalton MD Unavailable [phone] Frankie Dalton MD Unavailable [phone] Celi Murrell Unavailable [phone] Norberto West MD Unavailable [phone] Allergies Active Allergy Reactions Criticality Noted [...] (1 mg). 4 Active ergocalciferol 1.25 MG (29968 UT) capsule Takes on Sundays 4 Active [...] Department Care Team Description 05/31/2025 Orders Only [place] [id number], [address] [place] [address] Celi Murrell PA Status post lumbar spinal fusion (Primary Dx); Low back pain, unspecified back pain laterality, unspecified chronicity, unspecified whether sciatica present; Lumbar spondylosis; Bilateral lower extremity pain; Lumbar radiculopathy 05/27/2025 Orders Only External Location [address] [place] [address] Provider, External 05/24/2025 Telephone [place] [id number] [address] Norberto West MD HCN - Patient Message 05/23/2025 Orders Only [place] [address], [address] [place] [address] Celi Murrell PA Status post lumbar spinal fusion (Primary Dx); Low back pain, unspecified back pain laterality, unspecified chronicity, unspecified whether sciatica present; Bilateral lower extremity pain; Lumbar radiculopathy; Lumbar spondylosis 04/24/2025 1:40 PM EDT Office Visit [facility] Orthopaedic Surgery & Sports Medicine [address] [place] [address] Norberto West MD S/P lumbar fusion (Primary Dx); Sacroiliac joint pain 04/24/2025 9:44 AM EDT - 04/24/2025 11:59 PM EDT Hospital Encounter [facility] Radiology [address] 1[address] [place] [address] Status post lumbar spinal fusion Discharge Disposition: Home or Self Care 04/24/2025 Travel 04/23/2025 Orders Only [facility] [address] [place] [address] Norberto West MD Status post [...] Orthopaedic Surgery & Sports Medicine [address] [place] [address] Norberto West MD [address] [place] [address] Health Maintenance Due Date Last [...] 2023 [facility]-Zoster Vaccines (1 of 2) 2023 [id number] Vaccine ( season) 2025 [facility]-Influenza Vaccine (#1) [...] this topic Medical Devices Implanted Type Area Central Service Supply Distributor Device Identifier Shelf Expiration Date Model / Serial / Lot Tlif-C Ui 12mm 8deg 20/08 - [id number] Implanted:Qty : 1 on 11/08/2024 by Norberto eWst MD at [facility] Cage N/A: Spine Lumbar DePuy [employer]ine [employer] [id number] 03/23/2028 [id number] / / Lowell Viper2 Lordotic 45mm - [id number] Implanted:Qty : 2 on 11/08/2024 by Norberto Wets MD at [facility] Lowell N/A: Spine Lumbar DePuy Spine [employer] [id number] 11/08/2025 [id number] / / Single Inner Setscrew - [id number] Implanted:Qty : 4 on 11/08/2024 by Norberto West MD at [facility] Screw N/A: Spine Lumbar De[employer]uy Spine [employer] [id number] 11/08/2025 [id number] / / Screw 7.0mm Viper Cfx Fen Xtab 50mm - [id number] Implanted:Qty : 4 on 11/08/2024 by Norberto West MD at [facility] Screw N/A: Spine Lumbar DePuy Spine Sales [id number] 11/08/2025 [id number] / / Tissue Vivigen Formable 5.4cc Med Pk/4 - [id number] - [id number] Implanted:Qty : 1 on 11/08/2024 by Norberto West MD at [facility] Spine Lumbar [facility]-[id number] 10/04/2025 [id number] / [id number] / [id number] Procedures Procedure Name Priority Date/Time Associated Diagnosis [...] Patient has decision-making capacity? Yes Care Teams Core Java Engineer Relationship Specialty Start Date End Date Janet Chapman PA [address] [place] [address] [facility] - General 06/23/21 Clarence Rubin MD [address] [place] [address] Surgeon Neurosurgery 06/23/21 Frankie Dalton MD [address] [place] [address] Surgeon Neurosurgery 10/13/21 Frankie Dalton MD [address] [place] [address] Surgeon Neurosurgery 12/15/21 Celi Murrell PA [address] [place] [address] Physician Extension Service Supervisor Neurosurgery 04/01/22 Norbreto West MD [address] [place] [address] Surgeon Neurosurgery 10/29/24
--- OUTSIDE RECORDS SUMMARY | 2025-07-16 11:21 | XMS_ITS | Encounter Summary ---
Author Organization [facility] Address [address] [place] [address] Care Team Providers Care Interventional Physician Name Role Phone Janet Chapman Primary Care Provider [phone] Clarence Rubin MD Unavailable Frankie Dalton MD Unavailable [phone] Franike Dalton MD Unavailable [phone] Celi Murrell Unavailable [phone] Norberto West MD Unavailable [phone] Encounter Details Date Type Department Care Team (Late st Contact Info) Description 03/17/2021 Orders Only [place] [facility] [address] [place] [address] Des Da Silva MD [address] [place] [address] Lumbar radiculopathy (Primary Dx) Social [...] Description 08/07/2025 12:40 PM EDT Office Visit [facility] Orthopaedic Surgery & Sports Medicine [address] [place] [address] Norberto West MD [address] [place] [address] documented as of this encounter Visit Diagnoses Diagnosis Lumbar radiculopathy- Primary Thoracic or lumbosacral neuritis or radiculitis, unspecified documented in this encounter Care Teams Interventional Physician Relationship Specialty Start Date End Date Janet Chapman PA [address] [facility] [place] [address] PCP - General 06/23/21 Clarence Rubin MD [address] [place] [address] Surgeon Neurosurgery 06/23/21 Frankie Dalton MD [address] [place] [address] Surgeon Neurosurgery 10/13/21 Frankie Dalton MD [address] [place] [address] Surgeon Neurosurgery 12/15/21 Celi Murrell PA [address] [place] [address] Physician Social Sciences Professor Neurosurgery 04/01/22 Norberto West MD [address] [place] [address] Surgeon Neurosurgery 10/29/24 documented as of this encounter
--- OUTSIDE RECORDS SUMMARY | 2025-07-16 11:21 | XMS_ITS | Encounter Summary ---
Author Organization [facility] Address [address] [place] [address] Care Team Providers Care China Decorator Name Role Phone Janet Chapman Primary Care Provider [phone] Clarence Rubin MD Unavailable Frankie Dalton MD Unavailable [phone] Frankie Dalton MD Unavailable [phone] Celi Murrell Unavailable [phone] Norberto West MD Unavailable [phone] Reason for Visit * Reason Onset Date Comments HCN - Patient Message 05/24/2025 Encounter Details Date Type Department Care Team (Late st Contact Info) Description 05/24/2025 Telephone [facility] [address] [place] [address] Norberto West MD [address] [place] [address] HCN - Patient Message Social [...] know that everything was fxd to [facility] this morning and they will contact her to schedule. She verbalized understanding. * Telephone Encounter - Eden Bonilla - 05/24/2025 8:58 AM EDT Patient Phone Message Reason for Call: [facility] told her MRI was to be done at [facility] has no orders at this time Where will MRI be scheduled ? Best contact number and optimal time of day to reach caller: Pt / [phone] Note: Please do not reply to this message. Follow-up communication and further actions as a result of this message need to be communicated with the patient directly, if the patient is not active onMyChart. If the patient is active on MyChart, they will receive notification of the communication/outcome via Keyweet. documented in this encounter Plan of Treatment Upcoming Encounters Date Type Department Care Team (Late st Contact Info) Description 08/07/2025 12:40 PM EDT Office Visit [facility] Orthopaedic Surgery & Sports Medicine [address] [place] [address] Norberto West MD [address] [place] [address] documented as of this encounter Visit Diagnoses Not on filedocumented in this encounter Additional Health Concerns Assessment Noted Time A fall risk assessment has been complete d for the patient 04/24/2025 2:23 PM EDT A Body Mass Index follow-up plan has been documented for the patient 04/24/2025 3:24 PM EDT documented as of this encounter Care Teams China Decorator Relationship Specialty Start Date End Date Janet Chapman PA [address] [place] [address] PCP - General 06/23/21 Clarence Rubin MD [address] [place] [address] Surgeon Neurosurgery 06/23/21 Frankie Dalton MD [address] [place] [address] Surgeon Neurosurgery 10/13/21 Frankie Dalton MD [address] [place] [address] Surgeon Neurosurgery 12/15/21 Celi Murrell PA [address] [place] [address] Physician Soa Integration Developer Neurosurgery 04/01/22 Norberto West MD [address] [place] [address] Surgeon Neurosurgery 10/29/24 documented as of this encounter
--- NOTE | 2025-07-16 11:44 | CT_ITS ---
FINAL REPORT TECHNIQUE: Thin section axial images were obtained from the thoracic inlet through the upper abdomen after intravenous contrast injection. Reconstruction images were obtained from the axial data. Exam was performed using dose reduction technique. CLINICAL HISTORY: breast abscess, concern for concurrent malignancy COMPARISON: None FINDINGS: There is no mediastinal, hilar, or axillary lymphadenopathy. There is no pleural or pericardial effusion. Most of the left breast is not included on the exam. Within the small portion of the left breast there appears to be a peripherally enhancing irregular collection and skin thickening of the left breast. Findings could represent abscess given history. The lungs are clear. No consolidation. No suspicious nodules. Limited evaluation of the upper abdomen shows diffuse fatty infiltration of the liver. No acute findings. No acute osseous abnormality. IMPRESSION: Incompletely imaged abnormality involving the left breast. Otherwise, no acute intrathoracic abnormality. Reviewed, Interpreted and Dictated by Kavya Lew MD Transcribed by Cielo Parisi Authenticated and [facility]
--- NOTE | 2025-07-16 11:44 | HMH.EDGENADL ---
Discharge Plan Disposition Patient Disposition: Admitted Clinical Impressions Clinical Impression: Breast abscess Discharge ED Provider: Casper Stack General Adult HPI General Chief complaint: PAIN Stated complaint: knot in left breast-painful Time Seen by Provider: 07/16/25 11:09 Mode of Arrival: Ambulatory Source of Information: Patient Description of Symptoms (Recalled from ER Triage Doc. by RN): patient states one week ago she developed a grape sized knot under her left breast that has grown and gotten red and warm. she has been having more pain. she had a mammogram and ultrasound yesterday but hasnt gotten the results yet. History of Present Illness HPI narrative: This patient is a 49-year-old female who presents to the emergency department with concerns for a lump on her breast. She reports that she first noticed it 2 weeks ago, it has been growing rapidly in this time. It is extremely uncomfortable, initially the patient had pain with palpation of the area, now she has pain at baseline. She reached out to her primary care doctor last week who ordered a mammogram and an ultrasound. These were performed yesterday, she feels symptoms have significantly worsened since these were performed. Related Data Home Medications ?Medication ?Instructions ?Recorded ?Confirmed atorvastatin 20 mg tablet 20 mg PO HS 06/16/24 07/16/25 escitalopram oxalate 20 mg tablet 20 mg PO DAILY 06/16/24 07/16/25 cholecalciferol (vitamin D3) 50 50 mcg PO DIRECTED SUPPLIMENT 01/21/25 07/16/25 mcg (2,000 unit) capsule celecoxib 200 mg capsule 200 mg PO HS 07/16/25 07/16/25 insulin aspar prot-insulin aspart 40 unit SQ BID 07/16/25 07/16/25 100 unit/mL (70-30) subcutaneous pen lisinopril 10 mg tablet 10 mg PO HS 07/16/25 07/16/25 trazodone 50 mg tablet 50 mg PO DAILY 07/16/25 07/16/25 Previous Rx's ?Medication ?Instructions ?Recorded albuterol sulfate 90 mcg/actuation 2 inh inhalation Q6H PRN shortness 06/16/24 aerosol inhaler of breath or wheezing #6.7 grams lidocaine 5 % topical patch 1 patch topical DAILY #15 ea 01/21/25 estradiol 0.01% (0.1 mg/gram) 1 appful vaginal DAILY #42.5 grams 02/25/25 vaginal cream (Estrace) ondansetron 4 mg disintegrating 4 mg PO Q8H PRN nausea and 06/28/25 tablet vomiting 5 days #20 tabs Allergies Allergy/AdvReac Type Severity Reaction Status Date / Time cariprazine (From Vraylar) AdvReac Intermediate tics Verified 07/02/25 09:04 metformin AdvReac Vomiting Verified 07/02/25 09:04 morphine AdvReac Vomiting Verified 07/16/25 15:31 [facility] Disclaimer: The information contained in this section may have been updated after the patient was seen, as this information can be updated by other users. Medical History Sinusitis Nasal congestion Piriformis syndrome Back pain Left otitis media Viral respiratory illness Otitis media H. pylori infection Diarrhea Myalgia Chills Fever IBS (irritable bowel syndrome) Asthma Mouth ulcer Neuroforaminal stenosis of lumbar spine Herniation of lumbar intervertebral disc with radiculopathy Radicular pain of both lower extremities Lumbar canal stenosis Diabetes Neuropathy Low back pain History of rheumatic fever Urinary incontinence Hyperlipidemia Fibromyalgia Hypertension Perioral dermatitis Vitamin D deficiency (~08/19/18) Hand pain, left Depression Surgical History History of lumbar fusion History of section History of hand surgery History of hysterectomy H/O lumbar discectomy Family History Other Diabetes FHx: mental illness Family history of cancer Hyperlipidemia Hypertension Social History Smoking Status: Never smoker second hand exposure: Yes alcohol intake: current alcohol intake frequency: holidays/special occasions only substance use type: denies use current occupational status: unemployed Travel in the last 8 weeks?: None household members: spouse housing: house current occupational exposures/hazards: No caffeine: Yes Have you lived/traveled outside [place] in past 30 days?: No Contact w/someone who lives/traveled outside [place] past 30 days?: No Exposure to someone with infectious disease in past 14 days?: No Do you have a fever (greater than 100.4 F or 38 C)?: No Have you tested positive for COVID-19?: No Exposed to someone with COVID-19 in past 14 days?: No Do you have a sore throat?: No Do you have a cough?: No Do you have any weakness?: No Do you have any diarrhea?: No Are you experiencing any unusual bleeding?: No Do you have any muscle aches/pain?: No Do you have any abdominal pain?: No Are you experiencing loss of taste or smell?: No Other Medical History Have you received the Flu Vaccine for this season: No Have you received the Pneumonia Vaccine: No ROS Obtained: Yes All systems reviewed & no additional complaints except as documented Physical Exam General General appearance: alert and in no apparent distress Head Head exam: atraumatic and normocephalic Eye Eye exam: Present normal appearance, PERRL and EOMI ENT ENT exam: Present normal exam and normal external ear exam Neck Neck exam: Present normal inspection, full ROM and trachea midline Chest Chest inspection: Present symmetric chest wall rise and other (Large area of erythema and swelling underneath the left breast, significant tenderness to palpation, fluctuance on palpation) Respiratory Respiratory exam: Absent respiratory distress Cardiovascular Cardiovascular exam: Present regular rate, normal rhythm and other (appears warm and well perfused) Abdominal Exam Abdominal exam: Absent distention or tenderness Extremities Exam Extremities exam: Present normal inspection and full ROM Neurological Exam Neurological exam: Present alert and oriented X3 Psychiatric Psychiatric exam: Present normal affect Skin Skin exam: Present warm and dry Medical Decision Making Medical Records Medical records reviewed: Yes I reviewed the patient's medical records. Screening: Per USPSTF and CDC recommendations, given the prevalence of disease in our region, it is our hospital?s policy to screen for HIV and viral Hepatitis for all patients aged 18 and over and those with ongoing risk factors. Wali Inquiry Pt receiving controlled substance: No Wali was queried for this patient: No Vital Signs: 07/16/25 11:13 07/16/25 11:31 07/16/25 12:00 Temperature 97.6 F Temperature Source Oral Pulse Rate 74 77 Pulse Rate [Right Radial] 76 Respiratory Rate 14 Blood Pressure 140/77 144/79 H Blood Pressure [Right Arm] 164/87 H Blood Pressure Mean [Right Arm] 112 Blood Pressure Source Blood Pressure Source [Right Arm] Automatic Cuff Blood Pressure Position Blood Pressure Position [Right Arm] Supine 02 Sat by Pulse Oximetry 98 97 98 Oxygen Delivery Method Room Air 07/16/25 12:30 07/16/25 13:00 07/16/25 13:30 Temperature Temperature Source Pulse Rate 76 79 82 Pulse Rate [Right Radial] Respiratory Rate Blood Pressure 137/81 159/77 H 135/71 Blood Pressure [Right Arm] Blood Pressure Mean [Right Arm] Blood Pressure Source Blood Pressure Source [Right Arm] Blood Pressure Position Blood Pressure Position [Right Arm] 02 Sat by Pulse Oximetry 96 96 95 Oxygen Delivery Method 07/16/25 14:00 07/16/25 14:31 07/16/25 15:09 Temperature 97.6 F Temperature Source Oral Pulse Rate 77 77 77 Pulse Rate [Right Radial] Respiratory Rate 16 Blood Pressure 138/79 142/83 H 142/83 H Blood Pressure [Right Arm] Blood Pressure Mean [Right Arm] Blood Pressure Source Automatic Cuff Blood Pressure Source [Right Arm] Blood Pressure Position Supine Blood Pressure Position [Right Arm] 02 Sat by Pulse Oximetry 94 L 97 Oxygen Delivery Method Room Air Lab Data Lab results reviewed: Yes I reviewed the patient's lab results. Lab Results 07/16/25 11:43: WBC 13.7 H, RBC 4.16 L, Hgb 12.8, Hct 38.8, MCV 93.3, MCH 30.8, MCHC 33.0, RDW 11.4 L, Plt Count 442 H, MPV 9.0, Neut % (Auto) 68.6, Lymph % (Auto) 20.0, [place] % (Auto) 7.6, Eos % (Auto) 2.6, Baso % (Auto) 0.4, Neut # (Auto) 9.4 H, Lymph # (Auto) 2.7, [place] # (Auto) 1.1 H, Eos # (Auto) 0.4, Baso # (Auto) 0.1, ESR 88 H, Sodium 135 L, Potassium 4.2, Chloride 98, Carbon Dioxide 29, Anion Gap 12.2, BUN 14, Creatinine 0.70, Estimated Creat Clear 165, Estimated GFR 88, Est GFR ( Amer) 107, Glucose 151 H, Hemoglobin A1c 9.6 H, Calcium 9.4, Total Bilirubin 0.4, AST 55 H, ALT 67, Alkaline Phosphatase 146 H, C-Reactive Protein 67.4 H, Total Protein 7.8, Albumin 3.9, Globulin 3.9 H, Albumin/Globulin Ratio 1.0 L, TSH 0.49 07/16/25 11:43 07/16/25 11:43 Orders (Tests/Meds): ED MEDICATIONS Generic Name Dose Route Start Last Admin Trade Name Freq PRN Reason Stop Dose Admin Acetaminophen 650 mg 07/16/25 14:48 Acetaminophen 325mg Tab PO 08/15/25 14:47 Q4HP PRN Fever or Mild Pain (1-3) Hydrocodone Bitart/Acetaminophen 1 tab 07/16/25 15:31 Hydrocodone/Apap 5/325 Mg Tablet PO 08/15/25 15:30 Q6HP PRN Moderate to Severe Pain (4-10) Atorvastatin Calcium 20 mg 07/16/25 21:00 Atorvastatin 20mg Tablet PO 08/15/25 20:59 HS ESTEFANY Escitalopram Oxalate 20 mg 07/17/25 09:00 Escitalopram 20mg Tablet PO 08/16/25 08:59 DAILY ESTEFANY Hydromorphone HCl 0.5 mg 07/16/25 14:48 07/16/25 15:48 Hydromorphone 2mg/Ml Syringe IV 08/15/25 14:47 0.5 mg Q4HP PRN Administration Severe Pain (7-10) Ceftriaxone Sodium 2 gm/ 100 mls @ 200 mls/hr 07/16/25 11:45 07/16/25 12:43 Sodium Chloride IV 07/26/25 11:44 Infused Q24H ESTEFANY Infusion Clindamycin Phosphate 600 mg in 50 mls @ 100 mls/hr 07/16/25 15:00 07/16/25 16:05 Clindamycin 600mg/50ml D5w Premix IV 07/26/25 14:59 100 mls/hr Q8H ESTEFANY Administration Insulin Human Lispro 0 unit 07/16/25 16:30 07/16/25 16:10 Humalog 100 Units/Ml 10ml Vial (Ssi) SUBCUT 08/15/25 16:29 2 unit ACHS ESTEFANY Administration Protocol Ketorolac Tromethamine 30 mg 07/16/25 14:48 Ketorolac 30mg/Ml Vial IV 07/21/25 14:47 Q6HP PRN Moderate Pain (4-6) Lidocaine 1 each 07/17/25 09:00 Lidocaine 5% Transdermal Patch TD 08/16/25 08:59 DAILY ESTEFANY Lisinopril 10 mg 07/16/25 21:00 Lisinopril 10mg Tablet PO 08/15/25 20:59 HS ESTEFANY Nicotine 21 mg 07/16/25 14:48 Nicotine 21mg/24hr Patch TD 08/15/25 14:47 DAILYP PRN Nicotine Cravings Ondansetron HCl 4 mg 07/16/25 14:48 07/16/25 15:48 Ondansetron 4mg/2ml Vial IV 08/15/25 14:47 4 mg Q6H PRN Administration Nausea Trazodone HCl 50 mg 07/16/25 15:50 Trazodone 50mg Tablet PO 08/15/25 15:49 HSP PRN Sleep Discontinued Medications Generic Name Dose Route Start Last Admin Trade Name Freq PRN Reason Stop Dose Admin Hydromorphone HCl 0.5 mg 07/16/25 11:52 07/16/25 11:58 Hydromorphone 2mg/Ml Syringe IV 07/16/25 11:53 0.5 mg ONCE ONE Administration Iopamidol 75 ml 07/16/25 13:00 07/16/25 13:01 Iopamidol-370 (76%);100ml Bottle IV 07/16/25 13:01 75 ml ONCE ONE Administration Ondansetron HCl 4 mg 07/16/25 11:39 07/16/25 11:56 Ondansetron 4mg/2ml Vial IV 07/16/25 11:40 4 mg ONCE ONE Administration Sodium Chloride 10 ml 07/16/25 13:00 07/16/25 13:01 Sodium Chloride 0.9% 10ml Syr (Rad Only) IV 07/16/25 13:01 10 ml ONCE ONE Administration ORDERS Category Date Time Status CT chest w con Stat Cat Scan 07/16/25 11:44 Completed General Surgery Consult [Consult to General Surgery] [ Cons 07/16/25 14:48 Ordered CONS] Routine CBC w/Auto Diff [Complete Blood Count Auto Diff] Stat Lab 07/16/25 11:43 Completed CMP [Comprehensive Metabolic Panel] Stat Lab 07/16/25 11:43 Completed CRP [C-Reactive Protein] Stat Lab 07/16/25 11:43 Completed Complete Blood Count Auto Diff AMLAB Lab 07/17/25 06:00 Ordered Comprehensive Metabolic Panel AMLAB Lab 07/17/25 06:00 Ordered ESR [Erythrocyte Sedimentation Rate] Stat Lab 07/16/25 11:43 Completed Hemoglobin A1C Stat Lab 07/16/25 11:43 Completed Magnesium AMLAB Lab 07/17/25 06:00 Ordered TSH [Thyroid Stimulating Hormone] Stat Lab 07/16/25 11:43 Completed Medical Decision Narrative: MDM In summary, this 49-year-old female presents to the emergency department today with concern for breast swelling. Initial evaluation the patient uncomfortable, hemodynamically stable. Differential diagnosis includes but is not limited to abscess, cellulitis, mass. Based on these concerns, I ordered a comprehensive laboratory and imaging workup. Patient received ceftriaxone, clindamycin, Dilaudid, Zofran for treatment. Labs personally reviewed and interpreted demonstrate leukocytosis, elevated inflammatory markers, no significant anemia. CT imaging personally interpreted by me demonstrate incompletely imaged breast abscess. [id number] ultrasound performed by me showed large breast abscess, no mass identified. I attempted to access the mammogram and ultrasound the patient had had performed yesterday, unfortunately these results were not available to me. Ultimately we feel that the patient's workup for a lump cannot be completed until the abscess is treated and so we feel that this takes precedence over her possible mass. We feel it is most likely that the mass that she felt is actually the beginning stages of the abscess, but this would not be clear until the abscess is cured and the breast can be imaged again. I had interactive discussion with the general surgery service and the internal medicine service. Ultimately we decided to admit the patient to the internal medicine service for IV antibiotics and pain control with plans for an I&D in the morning with general surgery. The patient was comfortable with this plan. Procedures Limited Ultrasound Indication:: Redness and swelling Views:: Soft tissue views Findings:: Cobblestoning concerning for cellulitic changes, large loculated abscess, no mass identified Interpretation:: Cellulitic changes with abscess Disclaimer: These findings represent my own interpretation. Critical Care Critical Care Time Critical Care Time: No
[2025-07-16 11:55] LABS: Hematocrit 38.8 % (37.0-47.0); Hemoglobin 12.8 g/dL (12.2-16.2); Immature Granulocytes % 0.8 %; Mean Corpuscular HGB Conc 33.0 g/dL (31.8-35.4); Mean Corpuscular Hemoglobin 30.8 pg (27.0-31.2); Mean Corpuscular Volume 93.3 fl (81-99); Nucleated Red Blood Cells % 0 %; Platelet Count 442 K/mm3 (142-424); Red Blood Count 4.16 M/mm3 (4.20-5.40); Red Cell Distribution Width-SD 39.0 fL; White Blood Count 13.7 K/mm3 (4.8-10.8)
[2025-07-16] MEDS: ONDANSETRON 4MG/2ML VIAL 4 MG IV ×2 (11:56→15:48)
[2025-07-16] MEDS: HYDROMORPHONE 2MG/ML SYRINGE 0.5 MG IV ×3 (11:58→20:47)
[2025-07-16 12:03] LABS: Albumin Level 3.9 g/dl (3.5-5.0); Chloride 98 mmol/L (98-107); Potassium 4.2 mmoL/L (3.5-5.1); Sodium 135 mmol/L (136-145)
[2025-07-16 12:06] LABS: Alanine Aminotransferase 67 U/L (12-78); Albumin/Globulin Ratio 1.0 (1.1-1.8); Alkaline Phosphatase 146 U/L (38-126); Anion Gap 12.2 mEq/L (5-15); Aspartate Amino Transferase 55 U/L (14-36); Bilirubin,Total 0.4 mg/dl (0.2-1.3); Blood Urea Nitrogen 14 mg/dl (7-17); Calcium 9.4 mg/dl (8.4-10.2); Carbon Dioxide 29 mmol/L (22.0-30.0); Creatinine Clearance Estimated 165 mL/min (50-200); Creatinine,Serum 0.70 mg/dl (0.52-1.04); Estimated Glomerular Filt Rate 88 ml/min (>60); GFR (African American) 107 ML/MIN (>60); Globulin 3.9 g/dL (1.3-3.2); Glucose 151 mg/dl (74-100); Total Protein,Serum 7.8 g/dl (6.3-8.2)
[2025-07-16 12:54] LABS: C-Reactive Protein 67.4 mg/L (0-4)
[2025-07-16] MEDS: IOPAMIDOL-370 (76%);100ML BOTTLE 75 ML IV (13:01)
[2025-07-16] MEDS: SODIUM CHLORIDE 0.9% 10ML SYR (RAD ONLY) 10 ML IV (13:01)
--- NOTE | 2025-07-16 14:20 | PC.NURSE ---
DR SALINAS PAGED
--- NOTE | 2025-07-16 14:22 | PC.NURSE ---
DR GARCIA SPEAKING WITH DR SALINAS
--- NOTE | 2025-07-16 14:44 | PC.NURSE ---
provider on phone with hospitalist
--- NOTE | 2025-07-16 14:53 | PC.NURSE ---
[employer]ON[employer]ICAL TEST ENGINEER NOTIFIED OF ADMISSION
--- NOTE | 2025-07-16 14:54 | P.HP_ITS ---
<Statement entered by Drew Pete MD - 07/17/25 09:13> Personally evaluated the patient and agree with plan of care as outlined by the REGULATORY ASSISTANT. History of Present Illness *Admission Date: 07/16/25 *Reason for visit:: Breast Infection *History of present illness: Ms. Barr is a 49-year-old female who presented to the emergency department due to swelling, erythema, painful left breast. She has a primary medical history of hypertension, hyperlipidemia, OAB, mood disorder, insomnia, fibromyalgia, DJD, and diabetes. She states that she noticed the lump in her breast a few days ago and went to her PCP who recommended a mammogram and ultrasound, results are pending. She states that the pain has gotten worse and therefore she presented to the emergency department for further evaluation. She denies fevers, nausea, abdominal pain, chest pain. [facility] Disclaimer: The information contained in this section may have been updated after the patient was seen, as this information can be updated by other users. Medical History Sinusitis Nasal congestion Piriformis syndrome Back pain Left otitis media Viral respiratory illness Otitis media H. pylori infection Diarrhea Myalgia Chills Fever IBS (irritable bowel syndrome) Asthma Mouth ulcer Neuroforaminal stenosis of lumbar spine Herniation of lumbar intervertebral disc with radiculopathy Radicular pain of both lower extremities Lumbar canal stenosis Diabetes Neuropathy Low back pain History of rheumatic fever Urinary incontinence Hyperlipidemia Fibromyalgia Hypertension Perioral dermatitis Vitamin D deficiency (~08/19/18) Hand pain, left Depression Surgical History History of lumbar fusion History of section History of hand surgery History of hysterectomy H/O lumbar discectomy Family History Other Diabetes FHx: mental illness Family history of cancer Hyperlipidemia Hypertension Social History Smoking Status: Never smoker second hand exposure: Yes alcohol intake: current alcohol intake frequency: holidays/special occasions only substance use type: denies use current occupational status: unemployed Travel in the last 8 weeks?: None household members: spouse housing: house current occupational exposures/hazards: No caffeine: Yes Have you lived/traveled outside [place] in past 30 days?: No Contact w/someone who lives/traveled outside US past 30 days?: No Exposure to someone with infectious disease in past 14 days?: No Do you have a fever (greater than 100.4 F or 38 C)?: No Have you tested positive for COVID-19?: No Exposed to someone with COVID-19 in past 14 days?: No Do you have a sore throat?: No Do you have a cough?: No Do you have any weakness?: No Do you have any diarrhea?: No Are you experiencing any unusual bleeding?: No Do you have any muscle aches/pain?: No Do you have any abdominal pain?: No Are you experiencing loss of taste or smell?: No Other Medical History Have you received the Flu Vaccine for this season: No Have you received the Pneumonia Vaccine: No Review of Systems Constitutional Constitutional: Denies chills, Denies fever(s) and Denies headache(s) ENT Ears, Nose, Mouth, and Throat: Denies headache(s) *Cardiovascular Cardiovascular: Denies chest pain and Denies dyspnea *Respiratory Respiratory: Denies chest congestion, Denies cough and Denies dyspnea *Gastrointestinal Gastrointestinal: Denies abdominal pain, Denies diarrhea, Denies nausea and Denies vomiting *Genitourinary Genitourinary: Denies nipple discharge Integumentary/Breasts Skin/Breast: Reports erythema (Left breast), Reports skin pain (Left breast), Reports breast mass (Left breast), Reports breast pain (Left breast) and Denies nipple discharge *Neurologic Neurologic: Denies headache(s) Meds Home Medications and Allergies Home Medications ?Medication ?Instructions ?Recorded ?Confirmed ?Type albuterol sulfate 90 mcg/actuation 2 inh inhalation Q6 H PRN shortness 06/16/24 07/16/25 Rx aerosol inhaler of breath or wheezing #6.7 g rocío atorvastatin 20 mg tablet 20 mg PO HS 06/16/24 5 History escitalopram oxalate 20 mg tablet 20 mg PO DAILY 06/1607/16/25 History cholecalciferol (vitamin D3) 50 50 mcg PO DIRECTED SUPPLIMENT 01/21/25 07/16/25 History mcg (2,000 unit) capsule lidocaine 5 % topical patch 1 patch topical DAILY #15 ea 03/31/25 09/23/25 Rx estradiol 0.01% (0.1 mg/gram) 1 appful vaginal DAILY # 42.5 grams 02/25/25 07/16/25 Rx vaginal cream (Estrace) ondansetron 4 mg disintegrating 4 mg PO Q8H PRN nausea and 06/28/25 07/16/25 Rx tablet vomiting 5 days #20 tabs celecoxib 200 mg capsule 200 mg PO HS 07/16/25 History insulin aspar prot-insulin aspart 40 unit SQ BID 07/1607/16/25 History 100 unit/mL (70-30) subcutaneous pen lisinopril 10 mg tablet 10 mg PO HS 07/16/25 5 History trazodone 50 mg tablet 50 mg PO DAILY 07/16/2506/25 History New Prescriptions to Start Prescriptions: Allergies Allergy/AdvReac Type Severity Reaction Status Date / Time cariprazine (From [facility]) AdvReac Intermediate tics Verified 07/02/25 09:04 metformin AdvReac Vomiting Verified 07/02/25 09:04 morphine AdvReac Vomiting Verified 07/16/25 15:31 Exam Data for Last 24 hours Vital signs and Labs for Last 24 Hours: Temp Pulse Resp BP Pulse Ox O2 Del Method 97.6 F 77 14 142/83 H 97 Room Air 07/16/25 11:13 07/16/25 14:31 07/16/25 11:13 07/16/25 14:31 07/16/25 14:31 07/16/25 11:13 Laboratory Results - last 24 hr 07/16/25 11:43: WBC 13.7 H, RBC 4.16 L, Hgb 12.8, Hct 38.8, MCV 93.3, MCH 30.8, MCHC 33.0, RDW 11.4 L, Plt Count 442 H, MPV 9.0, Neut % (Auto) 68.6, Lymph % (Auto) 20.0, Hitchcock % (Auto) 7.6, Eos % (Auto) 2.6, Baso % (Auto) 0.4, Neut # (Auto) 9.4 H, Lymph # (Auto) 2.7, Hitchcock # (Auto) 1.1 H, Eos # (Auto) 0.4, Baso # (Auto) 0.1, ESR 88 H, Sodium 135 L, Potassium 4.2, Chloride 98, Carbon Dioxide 29, Anion Gap 12.2, BUN 14, Creatinine 0.70, Estimated Creat Clear 165, Estimated GFR 88, Est GFR ( Amer) 107, Glucose 151 H, Calcium 9.4, Total Bilirubin 0.4, AST 55 H, ALT 67, Alkaline Phosphatase 146 H, C-Reactive Protein 67.4 H, Total Protein 7.8, Albumin 3.9, Globulin 3.9 H, Albumin/Globulin Ratio 1.0 L I & O for Last 24 hours: Intake & Output 07/13/25 07/14/25 07/15/25 07/16/25 23:59 23:59 23:59 23:59 Intake Total 100 / 100 Balance 100 / 100 Weight 110.223 kg Constitutional Constitutional: no acute distress, obese and cooperative *Routine HEENT Exam Head: Present normocephalic Eye: Present EOMI ENT: Present mucous membranes moist *Routine Neck Exam Neck: Present supple and full ROM Routine Chest/Breast/Axilla Exam Breast: Present tenderness (Left), swelling (Left) and erythema (Left) *Routine Respiratory Exam Respiratory: Present CTA bilaterally and normal respiratory effort; Absent wheezes or crackles *Routine Cardiovascular Exam Cardiovascular: Present RRR, Normal S1 and Normal S2; Absent murmur *Routine Abdominal Exam Abdominal: Present soft and normoactive bowel sounds; Absent tenderness or distended *Routine Rectal Exam Rectal:: deferred *Routine Genitalia Exam Genitalia:: deferred *Routine Extremities Exam Extremities: Present full ROM and normal capillary refill; Absent clubbing or edema *Routine Skin Exam Skin: Present intact and dry *Routine Neurological Exam Neurological: Present alert and oriented X3 Assessment and Plan *Assessment and plan (1) Left breast abscess: Status: Acute Category: Medical Code(s): N61.1 - Abscess of the breast and nipple (2) Type 2 diabetes mellitus: Status: Acute Category: Medical Code(s): E11.9 - Type 2 diabetes mellitus without complications (3) Hypertension: Status: Chronic Qualifiers: Hypertension type: essential hypertension Qualified Code(s): I10 - Essential (primary) hypertension Category: Medical Code(s): I10 - Essential (primary) hypertension (4) Fibromyalgia: Status: Chronic Category: Medical Code(s): M79.7 - Fibromyalgia (5) Depression: Status: Chronic Qualifiers: Active/Remission status: currently active Depression Type: major depressive disorder Major depression episode severity: moderate Major depression recurrence: single episode Qualified Code(s): F32.1 - Major depressive disorder, single episode, moderate Category: Medical Code(s): F32.A - Depression, unspecified Plan Ms. Barr is a 49-year-old female who presented to the emergency department due to swelling, erythema, painful left breast. She has a primary medical history of hypertension, hyperlipidemia, OAB, mood disorder, insomnia, fibromyalgia, DJD, and diabetes. She states that she noticed the lump in her breast a few days ago and went to her PCP who recommended a mammogram and ultrasound, results are pending. She states that the pain has gotten worse and therefore she presented to the emergency department for further evaluation. Chest CT was notable for abnormality involving the left breast, incomplete imaging related to body habitus. She denies fevers, nausea, abdominal pain, chest pain. General surgery was consulted by the emergency department who felt the patient was appropriate for admission and I&D of left breast abscess tomorrow morning. Hospital medicine was then consulted for admission for continued empiric IV antibiotics and plans for surgery tomorrow, I agreed to accept the patient. Plan of care as follows: #Left breast abscess ? Patient assessment reveals left breast tenderness with erythema and hard nodule in the posterior left breast. No drainage or exudate noted on exam. Patient expresses that it is very painful. Dennison 5/325 ordered for moderate pain and Dilaudid 0.5 mg ordered for severe pain. Monitoring for toxicity. ? Patient was started on Rocephin 2 g IV every 24 hours in the ED, will continue and additionally add clindamycin 600 mg every 8 hours IV for strep and staph coverage. ? Dr. Diaz, general surgery, plans for for left breast I&D tomorrow morning. Patient n.p.o. after midnight. ? Lab work significant for leukocytosis, 13.7, inflammatory markers elevated ESR 88, CRP 67. No anemia, no electrolyte abnormalities noted, kidney function within normal range. ? Repeat CBC, CMP, mag in the a.m. #Type 2 diabetes ? ACHS fingersticks, SSI. A1c 9.6. She is currently taking insulin aspart 40 units twice daily?holding at this time due to surgical procedure in the morning. Glucose on admission 151. #Hypertension #Hyperlipidemia ? Patient currently hemodynamically stable, continue lisinopril 10 mg at bedtime and atorvastatin 20 mg at bedtime. #Fibromyalgia ? Continue lidocaine patch as needed for pain. Holding Celebrex 200 mg at bedtime in anticipation of I&D tomorrow. #Mood disorder #Insomnia ? Continue escitalopram 20 mg daily and trazodone 50 mg at bedtime as needed for sleep. Full code Regular diet?n.p.o. after midnight VTE?IPC's Ambulate as tolerated
--- NOTE | 2025-07-16 15:18 | PC.NURSE ---
arrived by w/c from ED
[2025-07-16 15:49] LABS: Thyroid Stimulating Hormone 0.49 uIU/mL (0.465-4.68)
[2025-07-16] MEDS: CLINDAMYCIN PHOSPHATE/D5W 600 MG/50 ML PIGGYBACK 100 MG IV ×2 (16:05→22:56)
[2025-07-16 16:06] LABS: Hemoglobin A1C 9.6 % (4.0-6.0)
[2025-07-16] MEDS: humaLOG 100 UNITS/ML 10ML VIAL (SSI) SUBCUT ×2 (16:10→21:02)
[2025-07-16 16:15] LABS: POC Glucose,Bedside 193 gm/dL (70-110)
--- NOTE | 2025-07-16 16:21 | PC.WOUNDNOTE ---
REDDENED, WARM, AND HARD AREA PRESENT TO INNER LEFT BREAST. WHITE TRIANGLE IS A STICKER FROM MAMMOGRAM TAKEN YESTERDAY.
[2025-07-16] MEDS: HYDROCODONE/APAP 5/325 MG TABLET 1 TAB PO (17:01)
--- NOTE | 2025-07-16 17:13 | PC.NURSE ---
pt new admit this shift. reddened and hard area to the inner L breast. iv abx given per dec. pt pain treated with medication per dec. tolerating RA with sats >90%. tolerating diet with no n/v. no needs at this time. call light within reach.
[2025-07-16] MEDS: ATORVASTATIN 20MG TABLET 20 MG PO (20:46)
[2025-07-16] MEDS: LISINOPRIL 10MG TABLET 10 MG PO (20:46)
[2025-07-16 21:00] LABS: POC Glucose,Bedside 223 gm/dL (70-110)
[2025-07-16] MEDS: KETOROLAC 30MG/ML VIAL 30 MG IV (23:00)
[2025-07-17] VITALS (17 sets, daily range): BP systolic 104–141; BP diastolic 53–97; PULSE 78–91; RESP 16–20; TEMP 36.9–37.6; O2SAT 91–97; BMI 34.2
[2025-07-17] MEDS: HYDROMORPHONE 2MG/ML SYRINGE 0.5 MG IV ×3 (02:28→15:57)
--- NOTE | 2025-07-17 04:05 | PC.NURSE ---
Addendum entered by Dilcia Hernandez RN 07/17/25 06:20: Kaplan was also administered per MAR (this morning, 06:15) for moderate left breast pain complaint. Original Note: Patient is alert and oriented x4. She was observed to be resting in bed with eyes closed, respirations even and unlabored on room air, and no apparent distress throughout the majority of the night. Patient has had complaints of [id number], tender, intermittent, pangs of pain in her left breast region this shift. Dilautid and Toradol were administered per MAR for pain relief ( both medications have helped ). Swollen area underneath her left breast is reddened, painful, and firm with palpation; no open areas, drainage, or deformity to nipple observed. Patient is currently NPO pending scheduled incision & drainage procedure today (07/17/25). She previously tolerated a regular diet very well. Auscultation of her heart, lungs, and bowels were within normal findings. Scheduled medications administered appropriately per MAR. Patient ambulates independently in her room/to the bathroom without difficulty. SCDs for VTE prophylaxis. At this time, the patient is resting in bed without vocalization of any new needs. Vital signs stable, ACHS glucose checks performed. Call light is within reach.
[2025-07-17] MEDS: CLINDAMYCIN PHOSPHATE/D5W 600 MG/50 ML PIGGYBACK 100 MG IV (06:10)
[2025-07-17] MEDS: HYDROCODONE/APAP 5/325 MG TABLET 1 TAB PO ×2 (06:15→12:04)
[2025-07-17 06:20] LABS: POC Glucose,Bedside 144 gm/dL (70-110)
--- NOTE | 2025-07-17 08:00 | HMH.PHAINT1 ---
Pharmacy Intervention Comments: HOME MEDICATION LIST VERIFIED USING LIST FROM OUTPATIENT PHARMACY AND PT INTERVIEW
[2025-07-17] MEDS: ESCITALOPRAM 20MG TABLET 20 MG PO (08:05)
--- NOTE | 2025-07-17 08:15 | EXP.SURG.CON ---
History of Present Illness *Admission Date: 07/16/25 *Reason for visit:: Left breast abscess *History of present illness: This is a 49-year-old female seen in consultation after presenting to the emergency department with increasing pain/erythema of the left breast. She was diagnosed with abscess and admitted to the Hospitalist Service for IV antibiotics and surgical consultation. Forwarded from admission H&P: Ms. Barr is a 49-year-old female who presented to the emergency department due to swelling, erythema, painful left breast. She has a primary medical history of hypertension, hyperlipidemia, OAB, mood disorder, insomnia, fibromyalgia, DJD, and diabetes. She states that she noticed the lump in her breast a few days ago and went to her PCP who recommended a mammogram and ultrasound, results are pending. She states that the pain has gotten worse and therefore she presented to the emergency department for further evaluation. She denies fevers, nausea, abdominal pain, chest pain. [facility] Disclaimer: The information contained in this section may have been updated after the patient was seen, as this information can be updated by other users. Medical History Sinusitis Nasal congestion Piriformis syndrome Back pain Left otitis media Viral respiratory illness Otitis media H. pylori infection Diarrhea Myalgia Chills Fever IBS (irritable bowel syndrome) Asthma Mouth ulcer Neuroforaminal stenosis of lumbar spine Herniation of lumbar intervertebral disc with radiculopathy Radicular pain of both lower extremities Lumbar canal stenosis Diabetes Neuropathy Low back pain History of rheumatic fever Urinary incontinence Hyperlipidemia Fibromyalgia Hypertension Perioral dermatitis Vitamin D deficiency (~08/19/18) Hand pain, left Depression Surgical History History of lumbar fusion History of section History of hand surgery History of hysterectomy H/O lumbar discectomy Family History Other Diabetes FHx: mental illness Family history of cancer Hyperlipidemia Hypertension Social History Smoking Status: Never smoker second hand exposure: Yes alcohol intake: current alcohol intake frequency: holidays/special occasions only substance use type: denies use current occupational status: unemployed Travel in the last 8 weeks?: None household members: spouse housing: house current occupational exposures/hazards: No caffeine: Yes Have you lived/traveled outside [place] in past 30 days?: No Contact w/someone who lives/traveled outside [place] past 30 days?: No Exposure to someone with infectious disease in past 14 days?: No Do you have a fever (greater than 100.4 F or 38 C)?: No Have you tested positive for COVID-19?: No Exposed to someone with COVID-19 in past 14 days?: No Do you have a sore throat?: No Do you have a cough?: No Do you have any weakness?: No Do you have any diarrhea?: No Are you experiencing any unusual bleeding?: No Do you have any muscle aches/pain?: No Do you have any abdominal pain?: No Are you experiencing loss of taste or smell?: No Review of Systems Review of Systems Review of systems:: pertinent systems reviewed and negative unless documented below Constitutional Constitutional: Denies headache(s) ENT Ears, Nose, Mouth, and Throat: Denies headache(s) Integumentary/Breasts Skin/Breast: Reports as per HPI *Neurologic Neurologic: Denies headache(s) Meds Home Medications and Allergies Home Medications ?Medication ?Instructions ?Recorded ?Confirmed ?Type albuterol sulfate 90 mcg/actuation 2 inh inhalation Q6H PRN shortness 06/16/24 07/16/25 Rx aerosol inhaler of breath or wheezing #6.7 grams atorvastatin 20 mg tablet 20 mg PO HS 06/16/24 07/16/25 History escitalopram oxalate 20 mg tablet 20 mg PO HS 06/16/24 07/17/25 History cholecalciferol (vitamin D3) 50 50 mcg PO DIRECTED 01/21/25 07/16/25 History mcg (2,000 unit) capsule estradiol 0.01% (0.1 mg/gram) 1 appful vaginal DAILY #42.5 grams 02/25/25 07/16/25 Rx vaginal cream (Estrace) ondansetron 4 mg disintegrating 4 mg PO Q8H PRN nausea and 06/28/25 07/16/25 Rx tablet vomiting 5 days #20 tabs celecoxib 200 mg capsule 200 mg PO HS 07/16/25 07/16/25 History insulin aspar prot-insulin aspart 40 unit SQ BID 07/16/25 07/16/25 History 100 unit/mL (70-30) subcutaneous pen lisinopril 10 mg tablet 10 mg PO HS 07/16/25 07/16/25 History trazodone 50 mg tablet 50 mg PO HS 07/16/25 07/17/25 History tirzepatide 2.5 mg/0.5 mL 2.5 mg SQ WEEKLY 07/17/25 07/17/25 History subcutaneous pen injector (Carolyn) New Prescriptions to Start Prescriptions: Allergies Allergy/AdvReac Type Severity Reaction Status Date / Time cariprazine (From [facility]) AdvReac Intermediate tics Verified 07/02/25 09:04 metformin AdvReac Vomiting Verified 07/02/25 09:04 morphine AdvReac Vomiting Verified 07/16/25 15:31 Exam (Inpt) Vital signs and Labs for Last 24 Hours: Temp Pulse Resp BP Pulse Ox O2 Del Method 98.7 F 86 16 104/53 L 94 L Room Air 07/17/25 03:59 07/17/25 03:59 07/17/25 03:59 07/17/25 03:59 07/17/25 03:59 07/17/25 06:40 Laboratory Results - last 24 hr 07/16/25 11:43: WBC 13.7 H, RBC 4.16 L, Hgb 12.8, Hct 38.8, MCV 93.3, MCH 30.8, MCHC 33.0, RDW 11.4 L, Plt Count 442 H, MPV 9.0, Neut % (Auto) 68.6, Lymph % (Auto) 20.0, Foster % (Auto) 7.6, Eos % (Auto) 2.6, Baso % (Auto) 0.4, Neut # (Auto) 9.4 H, Lymph # (Auto) 2.7, Foster # (Auto) 1.1 H, Eos # (Auto) 0.4, Baso # (Auto) 0.1, ESR 88 H, Sodium 135 L, Potassium 4.2, Chloride 98, Carbon Dioxide 29, Anion Gap 12.2, BUN 14, Creatinine 0.70, Estimated Creat Clear 165, Estimated GFR 88, Est GFR ( Amer) 107, Glucose 151 H, Hemoglobin A1c 9.6 H, Calcium 9.4, Total Bilirubin 0.4, AST 55 H, ALT 67, Alkaline Phosphatase 146 H, C-Reactive Protein 67.4 H, Total Protein 7.8, Albumin 3.9, Globulin 3.9 H, Albumin/Globulin Ratio 1.0 L, TSH 0.49 07/16/25 16:04: POC Glucose 193 H 07/16/25 20:52: POC Glucose 223 H 07/17/25 06:10: POC Glucose 144 H I & O for Labs for Last 24 Hours: Intake & Output 07/14/25 07/15/25 07/16/25 07/17/25 11:59 11:59 11:59 11:59 Intake Total 1050 / 1050 Output Total 0 / 0 Balance 1050 / 1050 Weight 243 lb 225 lb 11.2 oz Constitutional: no acute distress Respiratory: Absent respiratory distress Cardiac: Absent Tachycardia Comment:: Soft tissue edema and erythema along mid/inferior left breast. Results Labs 07/16/25 11:43 07/16/25 11:43 Labs: Laboratory Results - last 24 hr 07/16/25 11:43: WBC 13.7 H, RBC 4.16 L, Hgb 12.8, Hct 38.8, MCV 93.3, MCH 30.8, MCHC 33.0, RDW 11.4 L, Plt Count 442 H, MPV 9.0, Neut % (Auto) 68.6, Lymph % (Auto) 20.0, Foster % (Auto) 7.6, Eos % (Auto) 2.6, Baso % (Auto) 0.4, Neut # (Auto) 9.4 H, Lymph # (Auto) 2.7, Foster # (Auto) 1.1 H, Eos # (Auto) 0.4, Baso # (Auto) 0.1, ESR 88 H, Sodium 135 L, Potassium 4.2, Chloride 98, Carbon Dioxide 29, Anion Gap 12.2, BUN 14, Creatinine 0.70, Estimated Creat Clear 165, Estimated GFR 88, Est GFR ( Amer) 107, Glucose 151 H, Hemoglobin A1c 9.6 H, Calcium 9.4, Total Bilirubin 0.4, AST 55 H, ALT 67, Alkaline Phosphatase 146 H, C-Reactive Protein 67.4 H, Total Protein 7.8, Albumin 3.9, Globulin 3.9 H, Albumin/Globulin Ratio 1.0 L, TSH 0.49 07/16/25 16:04: POC Glucose 193 H 07/16/25 20:52: POC Glucose 223 H 07/17/25 06:10: POC Glucose 144 H Assessment and Plan *Assessment and plan (1) Left breast abscess: Status: Acute Category: Medical Code(s): N61.1 - Abscess of the breast and nipple Plan: Continue overall management (IV antibiotics, etc.) as per primary service Incision and drainage of left breast abscess later today I have discussed the risks and benefits including, but not limited to: Bleeding Infection Damage to surrounding tissue Inherent risks of sedation The patient agrees to proceed.
[2025-07-17 08:19] LABS: Hematocrit 37.0 % (37.0-47.0); Hemoglobin 12.2 g/dL (12.2-16.2); Immature Granulocytes % 0.7 %; Mean Corpuscular HGB Conc 33.0 g/dL (31.8-35.4); Mean Corpuscular Hemoglobin 30.5 pg (27.0-31.2); Mean Corpuscular Volume 92.5 fl (81-99); Nucleated Red Blood Cells % 0 %; Platelet Count 435 K/mm3 (142-424); Red Blood Count 4.00 M/mm3 (4.20-5.40); Red Cell Distribution Width-SD 39.4 fL; White Blood Count 15.4 K/mm3 (4.8-10.8)
[2025-07-17 08:26] LABS: Alanine Aminotransferase 58 U/L (12-78); Albumin Level 3.7 g/dl (3.5-5.0); Albumin/Globulin Ratio 1.0 (1.1-1.8); Alkaline Phosphatase 135 U/L (38-126); Aspartate Amino Transferase 38 U/L (14-36); Bilirubin,Total 0.5 mg/dl (0.2-1.3); Blood Urea Nitrogen 15 mg/dl (7-17); Calcium 8.7 mg/dl (8.4-10.2); Carbon Dioxide 24 mmol/L (22.0-30.0); Chloride 100 mmol/L (98-107); Creatinine Clearance Estimated 134 mL/min (50-200); Creatinine,Serum 0.80 mg/dl (0.52-1.04); Estimated Glomerular Filt Rate 76 ml/min (>60); GFR (African American) 92 ML/MIN (>60); Globulin 3.6 g/dL (1.3-3.2); Glucose 180 mg/dl (74-100); Magnesium 1.7 mg/dl (1.6-2.3); Potassium 4.5 mmoL/L (3.5-5.1); Total Protein,Serum 7.3 g/dl (6.3-8.2)
--- NOTE | 2025-07-17 08:51 | P.DS_ITS ---
<Statement entered by Drew Pete MD - 07/18/25 14:24> Agree with plan of care as outlined by the LOADING UNIT OPERATOR. General Admission date:: 07/16/25 Discharge date: 07/18/25 HPI HPI HPI: Ms. Barr is a 49-year-old female who presented to the emergency department due to swelling, erythema, painful left breast. She has a primary medical history of hypertension, hyperlipidemia, OAB, mood disorder, insomnia, fibromyalgia, DJD, and diabetes. She states that she noticed the lump in her breast a few days ago and went to her PCP who recommended a mammogram and ultrasound, results are pending. She states that the pain has gotten worse and therefore she presented to the emergency department for further evaluation. She denies fevers, nausea, abdominal pain, chest pain. Hospital Course Hospital Course Hospital Course: Ms. Barr is a 49-year-old female who presented to the emergency department due to swelling, erythema, painful left breast. She has a primary medical history of hypertension, hyperlipidemia, OAB, mood disorder, insomnia, fibromyalgia, DJD, and diabetes. She states that she noticed the lump in her breast a few days ago and went to her PCP who recommended a mammogram and ultrasound, results are pending. She states that the pain has gotten worse and therefore she pres ented to the emergency department for further evaluation. Chest CT was notable for abnormality involving the left breast, incomplete imaging related to body habitus. She denies fevers, nausea, abdominal pain, chest pain. General surgery was consulted by the emergency department who felt the patient was appropriate for admission and I&D of left breast abscess. Hospital medicine was then consulted for admission for continued empiric IV antibiotics and plans for surgery. I agreed to admit the patient for IV abx and surgery. Plan of care was as follows: #Left breast abscess ? Patient presented with left breast tenderness with erythema and hard nodule in the posterior left breast. No drainage or exudate noted on exam. - Initial WBC 13.7, vitals stable. No signs of sepsis. WBC up to 17.0 today, but patient comfortable. Elevated WBC may be related to IV steroids. Patient being discharged home on Bactrim. - General surgery consulted, s/p I&D with findings of large complex pocket of pu rulence throughout central and lower left breast with surrounding indurated/necrotic adipose tissue. Patient tolerated procedure well. Cultures taken during procedure. Patient will continue daily dry dressing changes at discharge. Follow-up within 1 week with general surgery. - Patient developed diffuse urticaria on chest, abdomen, face, back after surgery. Possibly related to antibiotics or surgical cocoa bean cleaner. Patient received Benadryl and Solu-Medrol. No signs of anaphylaxis, vital signs remained stable. Patient was kept overnight for monitoring. Discussed discharge home on EpiPen, it is not covered by insurance. Discussed with patient signs and symptoms to report if having an adverse reaction. ? Patient was started on Rocephin 2 g IV every 24 hours in the ED, will continue and additionally add clindamycin 600 mg every 8 hours IV for strep and staph coverage. Transitioned to Zosyn postprocedure, will discharge home on Bactrim. -Patient discharged home with [place] 5/325 mg for pain control. #Type 2 diabetes ? A1c 9.6. Continue insulin aspart 40 units twice daily, patient should follow- up with PCP for better control of her type 2 diabetes. Consider Arabella in the outpatient setting. #Hypertension #Hyperlipidemia ? Continue lisinopril 10 mg and atorvastatin 20 mg at discharge. ?Discussed with patient she needs to hold her lisinopril while taking Bactrim antibiotics. #Fibromyalgia ? Continue Celebrex 200 mg as needed at discharge. #Mood disorder #Insomnia ? Continue escitalopram 20 mg daily and trazodone 50 mg at bedtime as needed for sleep at discharge. Total time spent on discharge 33 minutes in counseling, documentation, chart review, and direct care with patient. Exam Data for Last 24 hours Vital signs and Labs for Last 24 Hours: Temp Pulse Resp BP Pulse Ox O2 Del Method 99.2 F 78 16 116/69 94 L Room Air 07/17/25 08:00 07/17/25 08:00 07/17/25 08:00 07/17/25 08:00 07/17/25 08:00 07/17/25 08:00 Laboratory Results - last 24 hr 07/16/25 11:43: WBC 13.7 H, RBC 4.16 L, Hgb 12.8, Hct 38.8, MCV 93.3, MCH 30.8, MCHC 33.0, RDW 11.4 L, Plt Count 442 H, MPV 9.0, Neut % (Auto) 68.6, Lymph % (Auto) 20.0, Shannon % (Auto) 7.6, Eos % (Auto) 2.6, Baso % (Auto) 0.4, Neut # (Auto) 9.4 H, Lymph # (Auto) 2.7, Shannon # (Auto) 1.1 H, Eos # (Auto) 0.4, Baso # (Auto) 0.1, ESR 88 H, Sodium 135 L, Potassium 4.2, Chloride 98, Carbon Dioxide 29, Anion Gap 12.2, BUN 14, Creatinine 0.70, Estimated Creat Clear 165, Estimated GFR 88, Est GFR ( Amer) 107, Glucose 151 H, Hemoglobin A1c 9.6 H, Calcium 9.4, Total Bilirubin 0.4, AST 55 H, ALT 67, Alkaline Phosphatase 146 H, C-Reactive Protein 67.4 H, Total Protein 7.8, Albumin 3.9, Globulin 3.9 H, Albumin/Globulin Ratio 1.0 L, TSH 0.49 07/16/25 16:04: POC Glucose 193 H 07/16/25 20:52: POC Glucose 223 H 07/17/25 06:00: WBC 15.4 H, RBC 4.00 L, Hgb 12.2, Hct 37.0, MCV 92.5, MCH 30.5, MCHC 33.0, RDW 11.6, Plt Count 435 H, MPV 9.0, Neut % (Auto) 73.6, Lymph % (Auto) 14.3, Shannon % (Auto) 8.3, Eos % (Auto) 2.6, Baso % (Auto) 0.5, Neut # (Auto) 11.3 H, Lymph # (Auto) 2.2, Shannon # (Auto) 1.3 H, Eos # (Auto) 0.4, Baso # (Auto) 0.1 07/17/25 06:10: POC Glucose 144 H 07/17/25 08:12: Potassium 4.5, Chloride 100, Carbon Dioxide 24, BUN 15, Creatinine 0.80, Estimated Creat Clear 134, Estimated GFR 76, Est GFR ( Amer) 92, Glucose 180 H, Calcium 8.7, Magnesium 1.7, Total Bilirubin 0.5, AST 38 H D, ALT 58, Alkaline Phosphatase 135 H, Total Protein 7.3, Albumin 3.7, Globulin 3.6 H, Albumin/Globulin Ratio 1.0 L I & O for Last 24 hours: Intake & Output 07/14/25 07/15/25 07/16/25 07/17/25 23:59 23:59 23:59 23:59 Intake Total 800 / 1000 250 / 250 Output Total 0 / 0 0 / 0 Balance 800 / 1000 250 / 250 Weight 102.875 kg 102.376 kg Constitutional Constitutional: no acute distress, obese and cooperative *Routine HEENT Exam Head: Present normocephalic Eye: Present EOMI ENT: Present mucous membranes moist *Routine Neck Exam Neck: Present supple; Absent lymphadenopathy Routine Chest/Breast/Axilla Exam Breast: Present tenderness (left), swelling (left) and erythema (left) Comments: S/P I&D left breast, dressing clean dry and intact *Routine Respiratory Exam Respiratory: Present CTA bilaterally, able to speak in complete sentences and symmetric chest movement; Absent wheezes or crackles *Routine Cardiovascular Exam Cardiovascular: Present RRR, Normal S1 and Normal S2; Absent murmur *Routine Abdominal Exam Abdominal: Present soft and normoactive bowel sounds; Absent tenderness or distended *Routine Extremities Exam Extremities: Present pulses intact and normal capillary refill; Absent edema *Routine Skin Exam Skin: Present intact and erythema (left breast) *Routine Neurological Exam Neurological: Present alert, oriented X3 and normal speech Routine Psychiatric Exam Psychiatric: Present normal affect Results Data Completed and Pending Labs on day of discharge: Labs from last 24 hours 07/17/25 07/17/25 07/17/25 08:12 06:10 06:00 WBC 15.4 H RBC 4.00 L Hgb 12.2 Hct 37.0 MCV 92.5 MCH 30.5 MCHC 33.0 RDW 11.6 Plt Count 435 H MPV 9.0 Neut % (Auto) 73.6 Lymph % (Auto) 14.3 Shannon % (Auto) 8.3 Eos % (Auto) 2.6 Baso % (Auto) 0.5 Neut # (Auto) 11.3 H Lymph # (Auto) 2.2 Shannon # (Auto) 1.3 H Eos # (Auto) 0.4 Baso # (Auto) 0.1 ESR Sodium Potassium 4.5 Chloride 100 Carbon Dioxide 24 Anion Gap BUN 15 Creatinine 0.80 Estimated Creat Clear 134 Estimated GFR 76 Est GFR ( Amer) 92 Glucose 180 H POC Glucose 144 H Hemoglobin A1c Calcium 8.7 Magnesium 1.7 Total Bilirubin 0.5 AST 38 H D ALT 58 Alkaline Phosphatase 135 H C-Reactive Protein Total Protein 7.3 Albumin 3.7 Globulin 3.6 H Albumin/Globulin Ratio 1.0 L TSH 07/16/25 07/16/25 07/16/25 20:52 16:04 11:43 WBC 13.7 H RBC 4.16 L Hgb 12.8 Hct 38.8 MCV 93.3 MCH 30.8 MCHC 33.0 RDW 11.4 L Plt Count 442 H MPV 9.0 Neut % (Auto) 68.6 Lymph % (Auto) 20.0 Shannon % (Auto) 7.6 Eos % (Auto) 2.6 Baso % (Auto) 0.4 Neut # (Auto) 9.4 H Lymph # (Auto) 2.7 Shannon # (Auto) 1.1 H Eos # (Auto) 0.4 Baso # (Auto) 0.1 ESR 88 H Sodium 135 L Potassium 4.2 Chloride 98 Carbon Dioxide 29 Anion Gap 12.2 BUN 14 Creatinine 0.70 Estimated Creat Clear 165 Estimated GFR 88 Est GFR ( Amer) 107 Glucose 151 H POC Glucose 223 H 193 H Hemoglobin A1c 9.6 H Calcium 9.4 Magnesium Total Bilirubin 0.4 AST 55 H ALT 67 Alkaline Phosphatase 146 H C-Reactive Protein 67.4 H Total Protein 7.8 Albumin 3.9 Globulin 3.9 H Albumin/Globulin Ratio 1.0 L TSH 0.49 DS: Diagnosis Discharge Diagnosis (1) Left breast abscess: Status: Acute Code(s): N61.1 - Abscess of the breast and nipple (2) Type 2 diabetes mellitus: Status: Acute Code(s): E11.9 - Type 2 diabetes mellitus without complications (3) Hypertension: Status: Chronic Code(s): I10 - Essential (primary) hypertension Qualifiers: Hypertension type: essential hypertension Qualified Code(s): I10 - Essential (primary) hypertension (4) Depression: Status: Chronic Code(s): F32.A - Depression, unspecified Qualifiers: Active/Remission status: currently active Depression Type: major depressive disorder Major depression episode severity: moderate Major depression recurrence: single episode Qualified Code(s): F32.1 - Major depressive disorder, single episode, moderate (5) Fibromyalgia: Status: Chronic Code(s): M79.7 - Fibromyalgia Meds Home Medications and Allergies Home Medications ?Medication ?Instructions ?Recorded ?Confirmed ?Type albuterol sulfate 90 mcg/actuation 2 inh inhalation Q6 H PRN shortness 06/16/24 07/16/25 Rx aerosol inhaler of breath or wheezing #6.7 g rocío atorvastatin 20 mg tablet 20 mg PO HS 06/16/24 5 History escitalopram oxalate 20 mg tablet 20 mg PO HS 06/16/24 07/17/25 History cholecalciferol (vitamin D3) 50 50 mcg PO DIRECTED 01/21/25 07/16/25 History mcg (2,000 unit) capsule estradiol 0.01% (0.1 mg/gram) 1 appful vaginal DAILY # 42.5 grams 02/25/25 07/16/25 Rx vaginal cream (Estrace) ondansetron 4 mg disintegrating 4 mg PO Q8H PRN nausea and 06/28/25 07/16/25 Rx tablet vomiting 5 days #20 tabs celecoxib 200 mg capsule 200 mg PO HS 07/16/25 History insulin aspar prot-insulin aspart 40 unit SQ BID 07/1607/16/25 History 100 unit/mL (70-30) subcutaneous pen lisinopril 10 mg tablet 10 mg PO HS 07/16/25 5 History Held on 07/17/25. Instructions: Resume on 07/24/25. Hold this medication while you are taking Bactrim as it can cause renal dysfunction taken together. trazodone 50 mg tablet 50 mg PO HS 07/16/25 5 History hydrocodone 5 mg-acetaminophen 325 1 tab PO Q6H PRN po st-op pain; 07/17/25 Rx mg tablet dressing changes #13 tabs sulfamethoxazole 800 1 tab PO BID 6 days #12 tabs 07/17/25 Rx mg-trimethoprim 160 mg tablet (Bactrim DS) tirzepatide 2.5 mg/0.5 mL 2.5 mg SQ WEEKLY 07/17/25 History subcutaneous pen injector (Edinunwaqar) New Prescriptions to Start Prescriptions: hydrocodone-acetaminophen Wisam Diaz sulfamethoxazole-trimethoprim [Bactrim DS] [place],Drew Allergies Allergy/AdvReac Type Severity Reaction Status Date / Time cariprazine (From Aspenr) AdvReac Intermediate tics Verified 07/17/25 15:00 metformin AdvReac Vomiting Verified 07/17/25 15:00 morphine AdvReac Vomiting Verified 07/17/25 15:00 Discharge Plan Disposition Patient Disposition: Home, Self-Care Condition: Fair Follow up Plan Follow up with: Janet Chapman PA [Primary Care Provider, Medical] - 08/01/25 1:00 pm Wisam Diaz MD [Staff Physician, General Surgery] - 07/24/25 1:45 pm Prescriptions/Medication Reconciliation: New hydrocodone-acetaminophen 5-325 mg tablet 1 tab PO Q6H PRN (Reason: post-op pain; dressing changes) Qty: 13 0RF sulfamethoxazole-trimethoprim [Bactrim DS] 800-160 mg tablet 1 tab PO BID 6 Days Qty: 12 0RF Continued cholecalciferol (vitamin D3) 50 mcg (2,000 unit) capsule 50 mcg PO DIRECTED estradiol [Estrace] 0.01 % (0.1 mg/gram) cream 1 appful vaginal DAILY Qty: 42.5 2RF Rx Instructions: Using finger technique daily for 14 days and then 3 times a week thereafter. atorvastatin 20 mg tablet 20 mg PO HS escitalopram oxalate 20 mg tablet 20 mg PO HS albuterol sulfate 90 mcg/actuation HFA aerosol inhaler 2 inh inhalation Q6H PRN (Reason: shortness of breath or wheezing) Qty: 6.7 0RF celecoxib 200 mg capsule 200 mg PO HS trazodone 50 mg tablet 50 mg PO HS insulin asp prt-insulin aspart 100 unit/mL (70-30) insulin pen 40 unit SQ BID Patient Comments: Inject 10 units under the skin twice a day for 30 days. Mounjaro 2.5 mg/0.5 mL pen injector 2.5 mg SQ WEEKLY ondansetron 4 mg tablet,disintegrating 4 mg PO Q8H PRN (Reason: nausea and vomiting) 5 Days Qty: 20 0RF Held lisinopril 10 mg tablet 10 mg PO HS Hold Instructions: Resume on 07/24/25. Hold this medication while you are taking Bactrim as it can cause renal dysfunction taken together. Problem Reconciliation Problems Reviewed?: Yes Patient Discharge Instructions ACTIVITY: No heavy lifting DIET: advance to your usual diet Additional Instructions: Dry dressing changes at least daily Your diabetes puts you at a higher risk for infections. Please follow-up with your PCP within the next week to better manage your diabetes. Patient Instructions: DI for Incision and Drainage of a Skin Abscess, DI for Surgical Site Infection, Stop Light Infection Print Language: Kazakh Providers Primary Care Provider: Janet Chapman Admit Provider: Drew Pete Attending Provider: Drew Pete
[2025-07-17 09:36] LABS: Anion Gap 10.5 mEq/L (5-15); Sodium 130 mmol/L (136-145)
[2025-07-17] MEDS: KETOROLAC 30MG/ML VIAL 30 MG IV (12:45)
[2025-07-17] MEDS: MAGNESIUM SULFATE IN WATER 2 GM/50 ML PIGGYBACK IV ×2 (13:30→14:28)
[2025-07-17] MEDS: LIDOCAINE 1% 20ML MDV 20 ML (15:35)
--- NOTE | 2025-07-17 15:35 | P.OP_ITS ---
Date of procedure: 07/17/25 Pre-op Diagnosis:: Left breast abscess Post-op Diagnosis:: Same Procedure performed:: Incision and drainage of complex left breast abscess Surgeon:: Wisam Diaz MD Anesthesia: local and LMA Estimated blood loss (mL): 10 Operative findings:: Large complex pocket of purulence throughout central and lower left breast with surrounding indurated/necrotic adipose tissue Operative note:: After informed consent was obtained the patient was taken to the operating room and placed in the supine position. General anesthesia with laryngeal mask airway was achieved. Her left breast was prepped and draped in a sterile fashion. An incision along the inferior areolar margin was completed. A large pocket of purulence was encountered. Fluid was obtained for Gram stain/culture. The cavity was evacuated. A multifocal complex abscess was encountered. The cavity was thoroughly irrigated. A portion of indurated/necrotic adipose tissue was obtained for pathology. The wound was then packed with Kerlix and the ent nancy region was infiltrated with 1% lidocaine. Dressings were applied and the patient was transferred to recovery in stable condition after removal of her laryngeal mask airway. Condition: stable Disposition: PACU Specimens:: Fluid for Gram stain/culture Indurated/necrotic left breast abscess tissue for pathology Complications:: No immediate
--- NOTE | 2025-07-17 15:47 | P.PNANES_ITS ---
[facility] Disclaimer: The information contained in this section may have been updated after the patient was seen, as this information can be updated by other users. Medical History Sinusitis Nasal congestion Piriformis syndrome Back pain Left otitis media Viral respiratory illness Otitis media H. pylori infection Diarrhea Myalgia Chills Fever IBS (irritable bowel syndrome) Asthma Mouth ulcer Neuroforaminal stenosis of lumbar spine Herniation of lumbar intervertebral disc with radiculopathy Radicular pain of both lower extremities Lumbar canal stenosis Diabetes Neuropathy Low back pain History of rheumatic fever Urinary incontinence Hyperlipidemia Fibromyalgia Hypertension Perioral dermatitis Vitamin D deficiency (~08/19/18) Hand pain, left Depression Surgical History History of lumbar fusion History of section History of hand surgery History of hysterectomy H/O lumbar discectomy Family History Other Diabetes FHx: mental illness Family history of cancer Hyperlipidemia Hypertension Social History (Updated 07/17/25 @ 15:00 by Chanel Baer RN) Smoking Status: Former smoker tobacco type: cigarettes packs per day: 1 second hand exposure: Yes alcohol intake: never substance use type: denies use current occupational status: unemployed Travel in the last 8 weeks?: None household members: spouse housing: house current occupational exposures/hazards: No caffeine: Yes Contact w/someone who lives/traveled outside [place] past 30 days?: No Exposure to someone with infectious disease in past 14 days?: No Do you have a fever (greater than 100.4 F or 38 C)?: No Have you tested positive for COVID-19?: No Exposed to someone with COVID-19 in past 14 days?: No Do you have a sore throat?: No Do you have a cough?: No Do you have any weakness?: No Are you experiencing any nausea/vomitting?: No Do you have any diarrhea?: No Are you experiencing any unusual bleeding?: No Do you have any muscle aches/pain?: No Do you have any abdominal pain?: No Are you experiencing loss of taste or smell?: No [facility] Anesthesia Checklist Patient Identification Patient Identification: Arm Band Structural Data Admitted From: Inpatient Planned Operative Procedure/s: I&D Left Breast Abscess Consent for Planned Operative Procedure(s) Verified: Yes Verified Documents: History and Physical NPO Status Verified Time NPO: 00:00 Additional verifications Anesthesia Reactions: No Hx Blood Transfusions: No Blood Transfusion Reaction: No Airway Assessment Mallampati Score:: Class II C-Spine Mobility Assessed: Yes TMJ Mobility Assessed: Yes Dentition: Good Dentition (upper dentures removed) Neurological Assessment Level of Consciousness: Awake, Alert and Appropriate Anesthesia Plan Anesthesia Risk discussed: Yes Anesthesia Plan: Verified ASA Class: II Anesthesia Type: General
--- NOTE | 2025-07-17 15:48 | EXP.ANES.I ---
[facility] Anesthesia Record Part I Anesthesia Record I Intake, IV Amount: 200 Hydration: Adequate Estimated blood loss (mL): 5 Urine output (mL): 0 Blood Products used (#): none Blood Pressure: 141/77 SaO2: 96 Pulse Rate: 84 Airway Patency: Patent Respiratory Rate: 16 Temperature: 99.6 F Patient is:: Drowsy and Stable Stable to PACU at:: 15:45
[2025-07-17 16:40] LABS: POC Glucose,Bedside 143 gm/dL (70-110)
[2025-07-17 17:00] LABS: POC Glucose,Bedside 116 gm/dL (70-110)
[2025-07-17] MEDS: METHYLPREDNISOLONE SOD SUCC 40MG VIAL 40 MG IV (17:51)
--- NOTE | 2025-07-17 18:38 | P.PN_ITS ---
Subjective *Date: 07/17/25 *Time: 21:24 Interval history: S/p I&D. After arrival to floor, patient developed diffuse urticaria on chest, abdomen, face, and back. She received cefazolin and dilaudad prior to procedure, both of which she received prior. Rash improved with IV Benadyl and Solu-Medrol. No signs of anaphylaxis, vitals stable. Patient nervous to go home after this, and I felt it was reasonable to monitor overnight as it was late. Exam Data for Last 24 hours Vital signs and Labs for Last 24 Hours: Temp Pulse Resp BP Pulse Ox O2 Del Method 98.4 F 90 18 140/66 93 L Room Air 07/17/25 18:05 07/17/25 18:05 07/17/25 18:05 07/17/25 18:05 07/17/25 18:05 07/17/25 18:05 Laboratory Results - last 24 hr 07/16/25 20:52: POC Glucose 223 H 07/17/25 06:00: WBC 15.4 H, RBC 4.00 L, Hgb 12.2, Hct 37.0, MCV 92.5, MCH 30.5, MCHC 33.0, RDW 11.6, Plt Count 435 H, MPV 9.0, Neut % (Auto) 73.6, Lymph % (Auto) 14.3, [place] % (Auto) 8.3, Eos % (Auto) 2.6, Baso % (Auto) 0.5, Neut # (Auto) 11.3 H, Lymph # (Auto) 2.2, [place] # (Auto) 1.3 H, Eos # (Auto) 0.4, Baso # (Auto) 0.1 07/17/25 06:10: POC Glucose 144 H 07/17/25 08:12: Sodium 130 L, Potassium 4.5, Chloride 100, Carbon Dioxide 24, Anion Gap 10.5, BUN 15, Creatinine 0.80, Estimated Creat Clear 134, Estimated GFR 76, Est GFR ( Amer) 92, Glucose 180 H, Calcium 8.7, Magnesium 1.7, Total Bilirubin 0.5, AST 38 H D, ALT 58, Alkaline Phosphatase 135 H, Total Protein 7.3, Albumin 3.7, Globulin 3.6 H, Albumin/Globulin Ratio 1.0 L 07/17/25 14:56: POC Glucose 116 H 07/17/25 16:33: POC Glucose 143 H I & O for Last 24 hours: Intake & Output 07/14/25 07/15/25 07/16/25 07/17/25 23:59 23:59 23:59 23:59 Intake Total 800 / 1000 722.5 / 722.5 Output Total 0 / 0 0 / 0 Balance 800 / 1000 722.5 / 722.5 Weight 102.875 kg 102.376 kg Constitutional Constitutional: no acute distress *Routine HEENT Exam Head: Present normocephalic Eye: Present EOMI and PERRL ENT: Present mucous membranes moist *Routine Neck Exam Neck: Present supple; Absent lymphadenopathy Routine Chest/Breast/Axilla Exam Comments: Left breast dressed, no notable drainage. *Routine Respiratory Exam Respiratory: Present CTA bilaterally *Routine Cardiovascular Exam Cardiovascular: Present RRR *Routine Abdominal Exam Abdominal: Present soft and normoactive bowel sounds; Absent tenderness *Routine Extremities Exam Extremities: Absent cyanosis, clubbing or edema *Routine Skin Exam Skin: Present warm; Absent rash *Routine Neurological Exam Neurological: Present alert and oriented X3 Assessment and Plan *Assessment and plan (1) Left breast abscess: Status: Acute Category: Medical Code(s): N61.1 - Abscess of the breast and nipple (2) Type 2 diabetes mellitus: Status: Acute Category: Medical Code(s): E11.9 - Type 2 diabetes mellitus without complications (3) Hypertension: Status: Chronic Qualifiers: Hypertension type: essential hypertension Qualified Code(s): I10 - Essential (primary) hypertension Category: Medical Code(s): I10 - Essential (primary) hypertension (4) Fibromyalgia: Status: Chronic Category: Medical Code(s): M79.7 - Fibromyalgia (5) Depression: Status: Chronic Qualifiers: Active/Remission status: currently active Depression Type: major depressive disorder Major depression episode severity: moderate Major depression recurrence: single episode Qualified Code(s): F32.1 - Major depressive disorder, single episode, moderate Category: Medical Code(s): F32.A - Depression, unspecified Plan Ms. Barr is a 49-year-old female who presented to the emergency department due to swelling, erythema, painful left breast. She has a primary medical history of hypertension, hyperlipidemia, OAB, mood disorder, insomnia, fibromyalgia, DJD, and diabetes. She states that she noticed the lump in her breast a few days ago and went to her PCP who recommended a mammogram and ultrasound, results are pending. She states that the pain has gotten worse and therefore she presented to the emergency department for further evaluation. Chest CT was notable for abnormality involving the left breast, incomplete imaging related to body habitus. She denies fevers, nausea, abdominal pain, chest pain. General surgery was consulted by the emergency department who felt the patient was appropriate for admission and I&D of left breast abscess tomorrow morning. Hospital medicine was then consulted for admission for continued empiric IV antibiotics and plans for surgery tomorrow, I agreed to accept the patient. Plan of care as follows: #Left breast abscess ? Presented with left breast tenderness with erythema and hard nodule in the posterior left breast. No drainage or exudate noted on exam. - Initial WBC 13.7, vitals stable. No signs of sepsis. WBC up to 15.4 today, but patient comfortable. - General surgery consulted, s/p I&D with findings of large complex pocket of purulence throughout central and lower left breast with surrounding indurated/necrotic adipose tissue. Patient tolerated procedure well. - After arrival to floor, patient developed diffuse urticaria on chest, abdomen, face, and back. She received cefazolin and dilaudad prior to procedure, both of which she received prior. Rash improved with IV Benadyl and Solu-Medrol. No signs of anaphylaxis, vitals stable. Patient nervous to go home after this, and I felt it was reasonable to monitor overnight as it was late. - Switched to IV Zosyn 3.375mg every 6 hours for ease of dosing, discontinued ceftriaxone and clindamycin to reduce risk of C-diff. - Uncontrolled diabetes puts patient a high risk for recurrent SSTIs, needs bet ter control. See below. - Follow-up rash, CBC in the morning. - [place] 5/10mg, Toradol as needed for pain control. - Will need Epipen on discharge. #Type 2 diabetes ? ACHS fingersticks, SSI. A1c 9.6. She is currently taking insulin aspart 40 units twice daily?holding at this time due to surgical procedure in the morning. Glucose on admission 151. - Hyperglycemic this evening, started Lantus 15 units nightly. Continue ACHS glucose checks, LDSSI. - Will need close follow-up with PCP to further manage diabetes. - Will consider Junuvia on discharge. #Hypertension #Hyperlipidemia ? Patient currently hemodynamically stable. - Holding lisinopril as patient will be on Bactrim. #Fibromyalgia ? Continue lidocaine patch as needed for pain. Holding Celebrex 200 mg at bedtime in anticipation of I&D tomorrow. #Mood disorder #Insomnia ? Continue escitalopram 20 mg daily and trazodone 50 mg at bedtime as needed for sleep. Full code Diabetic diet VTE?IPC's Ambulate as tolerated
--- NOTE | 2025-07-17 18:56 | PC.NURSE ---
upon entering patients room at 1700 this RN observed the patient to have a rash from her chin down to her abdomen, spreading to her arms, patient was c/o of rash itching. no c/o pain or SOB, VSS patient a/ox4. IV mag had completed infusing and was stopped and disconnected. notified and at bedside. IV benadryl and steriods ordered. jeffrey hugger gown (that was given in post op) removed. assessed patient at 1720 and rash/hives began to fade, patient no longer c/o itching and stated she felt better. call light within reach, family at bedside
[2025-07-17 20:08] LABS: POC Glucose,Bedside 392 gm/dL (70-110)
[2025-07-17] MEDS: PIPERCILLIN/TAZO 3.375 GM in 0.9 % SODIUM CHLORIDE 50 ML IV (20:08)
[2025-07-17] MEDS: ATORVASTATIN 20MG TABLET 20 MG PO (20:08)
[2025-07-17] MEDS: humaLOG 100 UNITS/ML 10ML VIAL (SSI) SUBCUT (20:09)
[2025-07-18] MEDS: PIPERCILLIN/TAZO 3.375 GM in 0.9 % SODIUM CHLORIDE 50 ML IV ×2 (03:00→08:46)
--- NOTE | 2025-07-18 03:54 | PC.NURSE ---
Pt AOx4, pleasant. Receiving IVABx. Dressing on L breast is c/d/i. Resting in bed with eyes closed. Respirations even and unlabored. Bed is low, locked, and call light is in reach.
[2025-07-18 04:00] VITALS: BP 126/70; PULSE 76; RESP 16; TEMP 36.5; O2SAT 96; BMI 34.9
[2025-07-18 04:59] LABS: POC Glucose,Bedside 237 gm/dL (70-110)
[2025-07-18] MEDS: humaLOG 100 UNITS/ML 10ML VIAL (SSI) SUBCUT (05:14)
[2025-07-18 06:20] LABS: Hematocrit 37.4 % (37.0-47.0); Hemoglobin 12.5 g/dL (12.2-16.2); Immature Granulocytes % 1.0 %; Mean Corpuscular HGB Conc 33.4 g/dL (31.8-35.4); Mean Corpuscular Hemoglobin 30.6 pg (27.0-31.2); Mean Corpuscular Volume 91.7 fl (81-99); Nucleated Red Blood Cells % 0 %; Platelet Count 465 K/mm3 (142-424); Red Blood Count 4.08 M/mm3 (4.20-5.40); Red Cell Distribution Width-SD 38.3 fL; White Blood Count 17.0 K/mm3 (4.8-10.8)
[2025-07-18 06:26] LABS: Alanine Aminotransferase 58 U/L (12-78); Albumin Level 3.6 g/dl (3.5-5.0); Albumin/Globulin Ratio 1.1 (1.1-1.8); Alkaline Phosphatase 134 U/L (38-126); Anion Gap 8.5 mEq/L (5-15); Aspartate Amino Transferase 43 U/L (14-36); Bilirubin,Total 0.3 mg/dl (0.2-1.3); Blood Urea Nitrogen 14 mg/dl (7-17); Calcium 8.8 mg/dl (8.4-10.2); Carbon Dioxide 27 mmol/L (22.0-30.0); Chloride 101 mmol/L (98-107); Creatinine Clearance Estimated 157 mL/min (50-200); Creatinine,Serum 0.70 mg/dl (0.52-1.04); Estimated Glomerular Filt Rate 88 ml/min (>60); GFR (African American) 107 ML/MIN (>60); Globulin 3.3 g/dL (1.3-3.2); Glucose 248 mg/dl (74-100); Potassium 4.5 mmoL/L (3.5-5.1); Sodium 132 mmol/L (136-145); Total Protein,Serum 6.9 g/dl (6.3-8.2)
[2025-07-18 06:32] LABS: C-Reactive Protein 62.5 mg/L (0-4)
--- NOTE | 2025-07-18 06:32 | EXP.SURG.PN ---
Subjective Patient reports: no new complaints and feels better Narrative: She states that her rash has resolved and she is hopeful that she will be discharged home today Exam Data for Last 24 hours Vital signs and Labs for Last 24 Hours: Temp Pulse Resp BP Pulse Ox O2 Del Method 97.7 F 76 16 126/70 96 Room Air 07/18/25 04:00 07/18/25 04:00 07/18/25 04:00 07/18/25 04:00 07/18/25 04:00 07/18/25 05:00 Laboratory Results - last 24 hr 07/17/25 06:00: WBC 15.4 H, RBC 4.00 L, Hgb 12.2, Hct 37.0, MCV 92.5, MCH 30.5, MCHC 33.0, RDW 11.6, Plt Count 435 H, MPV 9.0, Neut % (Auto) 73.6, Lymph % (Auto) 14.3, [place] % (Auto) 8.3, Eos % (Auto) 2.6, Baso % (Auto) 0.5, Neut # (Auto) 11.3 H, Lymph # (Auto) 2.2, [place] # (Auto) 1.3 H, Eos # (Auto) 0.4, Baso # (Auto) 0.1 07/17/25 08:12: Sodium 130 L, Potassium 4.5, Chloride 100, Carbon Dioxide 24, Anion Gap 10.5, BUN 15, Creatinine 0.80, Estimated Creat Clear 134, Estimated GFR 76, Est GFR ( Amer) 92, Glucose 180 H, Calcium 8.7, Magnesium 1.7, Total Bilirubin 0.5, AST 38 H D, ALT 58, Alkaline Phosphatase 135 H, Total Protein 7.3, Albumin 3.7, Globulin 3.6 H, Albumin/Globulin Ratio 1.0 L 07/17/25 14:56: POC Glucose 116 H 07/17/25 16:33: POC Glucose 143 H 07/17/25 20:00: POC Glucose 392 H* 07/18/25 04:50: POC Glucose 237 H 07/18/25 06:03: WBC 17.0 H, RBC 4.08 L, Hgb 12.5, Hct 37.4, MCV 91.7, MCH 30.6, MCHC 33.4, RDW 11.3 L, Plt Count 465 H, MPV 9.0, Neut % (Auto) 85.4 H, Lymph % (Auto) 9.9 L, [place] % (Auto) 3.5, Eos % (Auto) 0.0 L, Baso % (Auto) 0.2, Neut # (Auto) 14.5 H, Lymph # (Auto) 1.7, [place] # (Auto) 0.6, Eos # (Auto) 0.0, Baso # (Auto) 0.0 I & O for Last 24 hours: Intake & Output 07/15/25 07/16/25 07/17/25 07/18/25 11:59 11:59 11:59 11:59 Intake Total 1150 / 1150 832.5 / 832.5 Output Total 0 / 0 0 / 0 Balance 1150 / 1150 832.5 / 832.5 Weight 243 lb 225 lb 11.2 oz 230 lb 3.2 oz Microbiology Reports for the Last 24 Hours: Microbiology 07/17/25 15:23 Breast,Left - Abscess Gram Stain - Final Constitutional Constitutional: no acute distress Routine Chest/Breast/Axilla Exam Comments: Left breast dressing in place. *Routine Respiratory Exam Respiratory: Absent respiratory distress *Routine Cardiovascular Exam Cardiovascular: Absent tachycardia Progress Note: A&P Assessment and plan (1) Left breast abscess: Status: Acute Assessment and plan: Overall, doing fairly well status post incision and drainage of large complex abscess. Post-procedure rash (presumably secondary to cefazolin or Dilaudid) now resolved after treatment. Dry dressing changes at least daily Complete course of antibiotics as per primary service Overall management as per primary service
[2025-07-18 07:52] LABS: Magnesium 2.4 mg/dl (1.6-2.3)
[2025-07-18 08:00] VITALS: BP 136/74; PULSE 80; RESP 16; TEMP 36.7; O2SAT 97
[2025-07-18] MEDS: ESCITALOPRAM 20MG TABLET 20 MG PO (08:47)
--- NOTE | 2025-07-18 09:14 | P.PNANES_ITS ---
[facility] Anesthesia Record Part II Anesthesia Record Part II Discharge Time: 16:15 Destination: Surgical Day Care (OP Surgery) PACU nurse assessment reviewed?: Yes Patient Condition:: Good Anesthesia Complications:: None Swallowing reflex intact?: Yes Airway Patency: Patent Cyanosis?: No Blood Pressure: 126/77 SaO2: 97 Respiratory Rate: 18 Pulse Rate: 86 Temperature: 98.7 F Mental Status: Alert & Oriented Pain level:: 0 Nausea and/or vomitting:: None Intake, IV Amount: 0 Hydration: Adequate
[2025-07-18 09:15] VITALS: BP 126/77; PULSE 86; RESP 18; TEMP 37.1; O2SAT 97
[2025-07-18] MEDS: KETOROLAC 30MG/ML VIAL 30 MG IV (11:04)
--- NOTE | 2025-07-18 12:52 | PC.NURSE ---
at 1130 dressing to left breast was complete per MD orders. sanguineous drainage noted, no odor present. patient tolerated well. demonstrated how to change dressing daily to patient and family member, patient and family member verbalized understanding. no questions at this time.
[2025-07-18 13:16] LABS: POC Glucose,Bedside 174 gm/dL (70-110)
--- NOTE | 2025-07-19 10:06 | SW/DCPLANNER ---
Spoke with patient on the phone. Patient stated that she is doing well. Patient stated that she is aware of her upcoming appointments. Patient stated that she was able to get her new medicine picked up at clinic pharmacy. Patient stated that she has no concerns or questions at this time. Malcolm Rivero
== END 2025-07-18 12:13 | disposition home or self-care (01) ==
LOC: ER 11:13 → 2ND 15:03
PROVIDERS: Surgery; Admitting Provider Student in an Organized Health Care Education/Training Program; Emergency Provider Student in an Organized Health Care Education/Training Program; PCP Physician Assistant; Visit Provider Student in an Organized Health Care Education/Training Program
DX: N61.1 Abscess of the breast and nipple (principal); N64.1 Fat necrosis of breast; E66.9 Obesity, unspecified; E11.65 Type 2 diabetes mellitus with hyperglycemia; F32.1 Major depressive disorder, single episode, moderate; M79.7 Fibromyalgia; I10 Essential (primary) hypertension; E78.5 Hyperlipidemia, unspecified; F39 Unspecified mood [affective] disorder; G47.00 Insomnia, unspecified; J45.909 Unspecified asthma, uncomplicated; Z87.891 Personal history of nicotine dependence; Z88.5 Allergy status to narcotic agent; Z88.8 Allergy status to other drugs, medicaments and biological substances; Z68.34 Body mass index [BMI] 34.0-34.9, adult; Z79.4 Long term (current) use of insulin; Z79.85 Long-term (current) use of injectable non-insulin antidiabetic drugs; Z79.899 Other long term (current) drug therapy
CPT/HCPCS: 10061; 36415; 71260; 80053; 82962; 83036; 83735; 84443; 85025; 85651; 86140; 87070; 87077; 87186; 87205; 88304; 96365; 96367; 96375; 96376; 99284; G0378; J0690; J0696; J0736; J1100; J1171; J1200; J1885; J2003; J2250; J2405; J2543; J2704; J2919; J3010; J3475; Q9967

== ENCOUNTER 2025-08-12 09:39 | Outpatient (CLI) | payer OTHER, SELFPAY ==
--- OUTSIDE RECORDS SUMMARY | 2025-08-07 12:40 | XMS_ITS | Encounter Summary ---
Author Organization [facility] Address [address] [place] [address] Care Team Providers Care Manager Mortgage Name Role Phone Janet Chapman Primary Care Provider [phone] Clarence Rubin MD Unavailable Frankie Dalton MD Unavailable [phone] Frankie Dalton MD Unavailable [phone] Celi Murrell Unavailable [phone] Norberto West MD Unavailable [phone] Reason for Referral * Consultation (Routine) - Authorized Specialty Diagnoses / Procedures Referred By Contac t Referred To Contact Sports Medicine Diagnoses S/P lumbar fusion Norberto West MD [address] [facility] [address] [place] [address] Phone: tel: fax: [facility] Orthopaedic Surgery & Sports Medicine [facility] [facility], [address] [place] [address] Phone: tel: fax: Referral ID Status Reason Start Date Expiration Date Visits Requested Visits Authorized [id number] Authorized Specialty Services Required 5 02/06/2027 1 1 * Consultation (Routine) - Authorized Specialty Diagnoses / Procedures Referred By Contac t Referred To Contact Pain Medicine Diagnoses S/P lumbar fusion Norberto West MD [address] [address] Phone: tel: fax: Referral ID Status Reason Start Date Expiration Date Visits Requested Visits Authorized [id number] Authorized Specialty Services Required 02/06/2027 1 1 Scheduling Instructions [place] L5/S1 Epidural Reason for Visit * Reason Comments Follow-up Encounter Details Date Type Department Care Team (Late st Contact Info) Description 08/07/2025 12:40 PM EDT Office Visit [facility] Orthopaedic Surgery & Sports Medicine [address] [place] [address] Norberto West MD [address] [address] S/P lumbar fusion (Primary Dx) Social History Tobacco Use Types Packs/Day Years Used Date Smoking Tobacco: Former Cigarettes 1.1 40 1 990 - 10/24/2023 Smokeless Tobacco: Never Comments:Smoked from 1989 to 2023 Alcohol Use Standard Drinks/Week Comments Not Currently [...] Sign Reading Time Taken Comments Blood Pressure 117/73 08/07/2025 1:07 PM EDT Pulse 66 08/07/2025 1:07 PM EDT Temperature 36.7 C (98.1 F) 08/07/2025 1:07 PM EDT Respiratory Rate - - Oxygen Saturation 97% 08/07/2025 1:07 PM EDT Inhaled Oxygen Concentration - - Weight - - Height - - Body Mass Index - - documented in this encounter Miscellaneous Notes * Progress Notes - Norberto West MD - 08/07/2025 12:40 PM EDT HPI: Jenny Barr is a 49 y.o. female who presents for follow-up 9 months status post L4-5 MIS TLIF. She experienced new onset left greater than right hip pain and posterior thigh pain that occasionally radiates to the calves in February after being sprayed by cold hose and she extend her back abruptly. She has completed a course of physical therapy since that time without relief of symptoms. She had bilateral SI joint injections without relief of symptoms. Review of systems. 14 Point ROS performed. Noncontributory except as indicated above-form completedby patient, reviewed and placed in chart. ? Physical Exam: Awake alert and well-appearing Strength 5/5 Incision well healed Bilateral hips are tender to palpation. Bilateral SI joints tender to palpation. Lumbar spine is not tender to palpation Negative straight leg raise Positive RAFA bilaterally ? Imaging: MRI of the lumbar spine demonstrates worsening of L5-S1 degenerative disease with worsening left L5-S1 foraminal stenosis causing compression of the L5 nerve root on left. The right L5-S1 foramen appears patent Assessment: Jenny Barr is now 9 months status post L4-5 MIS TLIF. She was initially doing well until an injury in February resulting in mostly hip and posterior thigh pain. Physical therapy and SI joint injections have not improve this. Based on her examination I suspect she mostly has pain originating from hips with she does have some worsening pathology at L5-S1. It is possible that she has to superimposed sources of symptomatology, but lateral have a clear explanation for right-sided pain based on herMRI of the lumbar spine. I recommended an orthopedics referral for evaluation of the hip, IVP for L5-S1 epidural steroid injection, and three-month follow-up. If she responds positively to an L5-S1 epidural but not lobsterman, extension of fusion to S1 might be of benefit. I personally spent a total of 30 minutes on this encounter. This time includes face to face with patient, counseling and discussion and/or coordination of care. I spent >50% in [id number] communication with the patient over the diagnosis, treatment options and plan. Norberto West MD MS Drafter Assistant of Neurosurgery Complex and Minimally Invasive Spine Surgery [facility] [address] [place] [address] [place], [address] documented in this encounter Plan of Treatment Upcoming Encounters Date Type Department Care Team (Late st Contact Info) Description 11/13/2025 9:00 AM EST [facility] Orthopaedic Surgery & Sports Medicine [address] [place] [address] Norberto West MD [address] [place] [address] Scheduled Referrals Name Type Priority Associated Diagnoses Order Schedule Ambulatory referral to Interventional Pain Outpatient Referral Routine S/P lumbar fusion 1 Occurrences starting 08/07/2025 until 02/08/2027 Ambulatory referral to Orthopaedics Sports Medicine Outpatient Referral Routine S/P lumbar fusion 1 Occurrences starting 08/07/2025 until 02/08/2027 documented as of this encounter Visit Diagnoses Diagnosis S/P lumbar fusion- Primary Arthrodesis status documented in this encounter Additional Health Concerns Assessment Noted Time A fall risk assessment has been complete d for the patient 08/07/2025 1:14 PM EDT A Body Mass Index follow-up plan has been documented for the patient 08/07/2025 2:35 PM EDT documented as of this encounter Care Teams Manager Mortgage Relationship Specialty Start Date End Date Janet Chapman PA [address] [facility] [place] [address] PCP - General 06/23/21 Clarence Rubin MD [address] [place] [address] Surgeon Neurosurgery 06/23/21 Frankie Dalton MD [address] [place] [address] Surgeon Neurosurgery 10/13/21 Frankie Dalton MD [address] [place] [address] Surgeon Neurosurgery 12/15/21 Celi Murrell PA [address] [place] [address] Physician Manager Language Neurosurgery 04/01/22 Norberto West MD [address] [place] [address] Surgeon Neurosurgery 10/29/24 documented as of this encounter
--- OUTSIDE RECORDS SUMMARY | 2025-08-07 13:17 | XMS_ITS | Encounter Summary ---
Author Organization [facility] Address [address] [place] [address] Care Team Providers Care Space Systems Operations Superintendent Name Role Phone Janet Chapman Primary Care Provider [phone] Clarence Rubin MD Unavailable Frankie Dalton MD Unavailable [phone] Frankie Dalton MD Unavailable [phone] Celi Murrell Unavailable [phone] Norberto West MD Unavailable [phone] Encounter Details Date Type Department Care Team (Latest Contact Info) Description 08/07/2025 1:17 PM EDT - 08/07/2025 11:59 PM EDT Hospital Encounter [place] [facility] [address] [place] [address] Status post lumbar spinal fusion Discharge Disposition: [...] (2000 UT) capsule 5 Continuous Glucose Sensor ([employer] G7 Sensor) [facility] 5 cyclobenzaprine (Flexeril) 10 MG tablet Take 1 tablet by mouth 2 times a day as needed. 5 Embecta Pen Needle Ultrafine 31G X 5 MM [facility] 5 ergocalciferol 1.25 MG (21069 UT) capsule Takes on Sundays 4 escitalopram [...] Description 11/13/2025 9:00 AM EST Office Visit [facility] Orthopaedic Surgery & Sports Medicine [address] [place] [address] Norberto West MD [address] [place] [address] documented as of this encounter Procedures Procedure [...] documented as of this encounter Care Teams Space Systems Operations Superintendent Relationship Specialty Start Date End Date Janet Chapman PA [address] [place] [address] PCP - General 06/23/21 Clarence Rubin MD [address] [place] [address] Surgeon Neurosurgery 06/23/21 Frankie Dalton MD [address] [place] [address] Surgeon Neurosurgery 10/13/21 Frankie Dalton MD [address] [place] [address] Surgeon Neurosurgery 12/15/21 Celi Murrell PA [address] [place] [address] Physician Fire Marshal Neurosurgery 04/01/22 Norberto West MD [address] [place] [address] Surgeon Neurosurgery 10/29/24 documented as of this encounter
--- NOTE | 2025-08-12 09:40 | XR_ITS ---
FINAL REPORT CLINICAL HISTORY: left hip pain since January COMPARISON: 05/23/2025 FINDINGS: LEFT HIP: Two views of the left hip with an AP view of the pelvis demonstrate no acute fracture or dislocation. The joint spaces appear normal. The visualized bony structures are well aligned. No soft tissue abnormality is seen. IMPRESSION: No acute bony abnormality. Reviewed, Interpreted and Dictated by Tracie Toro MD Transcribed by Cielo Parisi Authenticated and [facility]
--- OUTSIDE RECORDS SUMMARY | 2025-08-12 10:19 | XMS_ITS | Encounter Summary ---
Author Organization [facility] Address [address] [place] [address] Care Team Providers Care Assembler Golf Wood Head Name Role Phone Janet Chapman Primary Care Provider [phone] Clarence Rubin MD Unavailable Frankie Dalton MD Unavailable [phone] Frankie Dalton MD Unavailable [phone] Celi Murrell Unavailable [phone] Norberto West MD Unavailable [phone] Encounter Details Date Type Department Care Team (Late st Contact Info) Description 07/16/2025 Orders Only External Location [address] [place] [address] Casper Stack MD [address] [place], [place] [id number] Social History Tobacco Use Types Packs/Day Years [...] Description 11/13/2025 9:00 AM EST Office Visit [facility] Orthopaedic Surgery & Sports Medicine [address], [address] [place] [address] Norberto West MD [address] [place] [address] documented as of this encounter Procedures Procedure Name Priority Date/Time Associated Diagnosis Comments CT OUTSIDE IMAGES 07/16/2025 12:56 PM EDT documented in this encounter Results * CT OUTSIDE IMAGES (07/16/2025 12:56 PM EDT) Anatomical Region Laterality Modality Computed Tomogra phy 07/16/2025 12:5 6 PM EDT Casper Stack MD IMG CT PROCEDURES Edited Re sult - Final documented in this encounter Visit Diagnoses Not on filedocumented in this encounter Additional Health Concerns Assessment Noted Time A fall risk assessment has been complete d for the patient 04/24/2025 2:23 PM EDT A Body Mass Index follow-up plan has been documented for the patient 04/24/2025 3:24 PM EDT documented as of this encounter Care Teams Assembler Golf Wood Head Relationship Specialty Start Date End Date Janet Chapman PA [address] [facility] [place] [address] PCP - General 06/23/21 Clarence Rubin MD [address] [place] [address] Surgeon Neurosurgery 06/23/21 Frankie Dalton MD [address] [place] [address] Surgeon Neurosurgery 10/13/21 Frankie Dalton MD [address] [place] [address] Surgeon Neurosurgery 12/15/21 Celi Murrell PA [address] [place] [address] Physician Mine Analyst Neurosurgery 04/01/22 Norberto West MD [address] [place] [address] Surgeon Neurosurgery 10/29/24 documented as of this encounter
--- OUTSIDE RECORDS SUMMARY | 2025-08-12 10:19 | XMS_ITS | Encounter Summary ---
Author Organization [facility] Address [address] [place] [address] Care Team Providers Care Community Resource Officer Name Role Phone Janet Chapman Primary Care Provider [phone] Clarence Rubin MD Unavailable Frankie Dalton MD Unavailable Frankie Dalton MD Unavailable [phone] Celi Murrell Unavailable [phone] Norberto West MD Unavailable [phone] Encounter Details Date Type Department Care Team (Late st Contact Info) Description 08/06/2025 Orders Only [facility] [address], [address] [place] [address] Norberto West MD [address] [place] [address] Status post lumbar spinal fusion [...] Description 11/13/2025 9:00 AM EST Office Visit [facility] Orthopaedic Surgery & Sports Medicine [address], [address] [place] [address] Norberto West MD [address] [place] [address] documented as of this encounter Visit Diagnoses Diagnosis Status post lumbar spinal fusion- Primary Arthrodesis status documented in this encounter Additional Health Concerns Assessment Noted Time A fall risk assessment has been complete d for the patient 04/24/2025 2:23 PM EDT A Body Mass Index follow-up plan has been documented for the patient 04/24/2025 3:24 PM EDT documented as of this encounter Care Teams Community Resource Officer Relationship Specialty Start Date End Date Janet Chapman PA [address] [place] [address] PCP - General 06/23/21 Clarence Rubin MD [address] [place] [address] Surgeon Neurosurgery 06/23/21 Frankie Dalton MD [address] [place] [address] Surgeon Neurosurgery 10/13/21 Frankie Dalton MD [address] [place] [address] Surgeon Neurosurgery 12/15/21 Celi Murrell PA [address] [place] [address] Physician Packer Inspector Neurosurgery 04/01/22 Norberto West MD [address] [place] [address] Surgeon Neurosurgery 10/29/24 documented as of this encounter
--- OUTSIDE RECORDS SUMMARY | 2025-08-12 10:19 | XMS_ITS | Encounter Summary ---
Author Organization [facility] Address [address] [place] [address] Care Team Providers Care Screen And Cyclone Repairer Name Role Phone Janet Chapman Primary Care Provider [phone] Clarence Rubin MD Unavailable Frankie Dalton MD Unavailable [phone] Frankie Dalton MD Unavailable [phone] Celi Murrell Unavailable [phone] Norberto West MD Unavailable [phone] Encounter Details Date Type Department Care Team (Late st Contact Info) Description 12/25/2021 Orders Only External Location [address] [place] [address] Celi Murrell PA [address] [facility] [address] [place] [address] Social History Tobacco Use Types Packs/Day Years [...] Description 11/13/2025 9:00 AM EST Office Visit [facility] Orthopaedic Surgery & Sports Medicine [address] [place] [address] Norberto West MD [address] [place] [address] documented as of this encounter Procedures Procedure Name Priority Date/Time Associated Diagnosis Comments MR OUTSIDE IMAGES 12/25/2021 8:55 AM EST documented in this encounter Results * MR transfer of outside films (12/25/2021 8:55 AM EST) Anatomical Region Laterality Modality Magnetic Resonan ce 12/25/2021 8:55 AM EST Celi HORNER IMG MRI PROCEDURES Edited Resul t - Final documented in this encounter Visit Diagnoses Not on filedocumented in this encounter Additional Health Concerns Assessment Noted Time A fall risk assessment has been complete d for the patient 12/15/2021 12:18 PM EST documented as of this encounter Care Teams Screen And Cyclone Repairer Relationship Specialty Start Date End Date Janet Chapman PA [address] [facility] [address] PCP - General 06/23/21 Clarence Rubin MD [address] [place] [address] Surgeon Neurosurgery 06/23/21 Frankie Dalton MD [address] [place] [address] Surgeon Neurosurgery 10/13/21 Frankie Dalton MD [address] [place] [address] Surgeon Neurosurgery 12/15/21 Celi Murrell PA [address] [place] [address] Physician Bindery Manager Neurosurgery 04/01/22 Norberto West MD [address] [place] [address] Surgeon Neurosurgery 10/29/24 documented as of this encounter
--- OUTSIDE RECORDS SUMMARY | 2025-08-12 10:19 | XMS_ITS | Encounter Summary ---
Author Organization [facility] Address [address] [place] [address] Care Team Providers Care Yard Operator Name Role Phone Janet Chapman Primary Care Provider [phone] Clarence Rubin MD Unavailable Frankie Dalton MD Unavailable [phone] Frankie Dalton MD Unavailable [phone] Celi Murrell Unavailable [phone] Norberto West MD Unavailable [phone] Reason for Visit * Reason Onset Date Comments [facility] - Patient Message 05/24/2025 Encounter Details Date Type Department Care Team (Late st Contact Info) Description 05/24/2025 Telephone [facility] [address] [place] [address] Norberto West MD [address] [place] [address] [facility]CN - Patient Message Social [...] her know that everything was fxd to [facility] this morning and they will contact her to schedule. She verbalized understanding. * Telephone Encounter - Eden Bonilla - 05/24/2025 8:58 AM EDT Patient Phone Message Reason for Call: [facility] told her MRI was to be done at [facility] has no orders at this time Where will MRI be scheduled ? Best contact number and optimal time of day to reach caller: Pt / [phone] Note: Please do not reply to this message. Follow-up communication and further actions as a result of this message need to be communicated with the patient directly, if the patient is not active onMyChart. If the patient is active on MyChart, they will receive notification of the communication/outcome via [employer]. documented in this encounter Plan of Treatment Upcoming Encounters Date Type Department Care Team (Late st Contact Info) Description 11/13/2025 9:00 AM EST Office Visit [facility] Orthopaedic Surgery & Sports Medicine [address] [place] [address] Norberto West MD [address] [place] [address] documented as of this encounter Visit Diagnoses Not on filedocumented in this encounter Additional Health Concerns Assessment Noted Time A fall risk assessment has been complete d for the patient 04/24/2025 2:23 PM EDT A Body Mass Index follow-up plan has been documented for the patient 04/24/2025 3:24 PM EDT documented as of this encounter Care Teams Yard Operator Relationship Specialty Start Date End Date Janet Chapman PA [address] [place] [address] PCP - General 06/23/21 Clarence Rubin MD [address] [place] [address] Surgeon Neurosurgery 06/23/21 Frankie Dalton MD [address] [place] [address] Surgeon Neurosurgery 10/13/21 Frankie Dalton MD [address] [place] [address] Surgeon Neurosurgery 12/15/21 Celi Murrell PA [address] [place] [address] Physician Digester Operator Helper Neurosurgery 04/01/22 Norberto West MD [address] [place] [address] Surgeon Neurosurgery 10/29/24 documented as of this encounter
--- OUTSIDE RECORDS SUMMARY | 2025-08-12 10:19 | XMS_ITS | Clinical Summary ---
Author Organization [facility] Address [address] [place] [address] Care Team Providers Care Estate Planning Director Name Role Phone Janet Chapman Primary Care Provider [phone] Allergies No known active allergies Medications escitalopram [...] 2023 INFLUENZA VACCINE 05/24/2025 08/15/2018, 08/15/2018 Insurance [facility] Care Teams Estate Planning Director Relationship Specialty Start Date End Date Janet Chapman PA PCP - General Physician Guide Rail Cleaner 07/14/21
--- OUTSIDE RECORDS SUMMARY | 2025-08-12 10:19 | XMS_ITS | Clinical Summary ---
Author Organization [facility] Address [address] [place] [address] Care Team Providers Care Motorboat Mechanic Inboard Name Role Phone Janet Chapman Primary Care Provider [phone] Clarence Rubin MD Unavailable Frankei Dalton MD Unavailable [phone] Frankie Dalton MD Unavailable [phone] Celi Murrell Unavailable [phone] Norberto West MD Unavailable [phone] Allergies Active Allergy Reactions Criticality Noted Date Comments Metformin Other - please docum ent in the comment field Low 06/16/2024 Morphine Other - please docum ent in the comment field Low 07/29/2014 n/v Medications atorvastatin (Lipitor) 20 MG tablet Take 1 tablet (20 mg) by mouth nightly. 08/23/20 18 Active lisinopril 10 MG tablet Take 1 tablet (10 mg) by mouth nightly. 08/21/20 18 Active albuterol 108 (90 Base) MCG/ACT inhaler Inhale 2 puffs every 6 hours as needed for wheezing. Active brexpiprazole (Rexulti) 1 MG tablet tablet 1 tablet (1 mg). 06/16/20 24 Active ergocalciferol 1.25 MG (44000 UT) capsule Takes on Sundays02/23/20 24 Active Ozempic, 0.25 or 0.5 MG/DOSE, 2 MG/3ML solution pen-injector Saturdays07/30/20 24 Active escitalopram (Lexapro) 20 MG tablet Take 1 tablet (20 mg) by mouth daily. Active varenicline (Chantix) 1 MG tablet 2 (two) times a day. Active fluconazole (Diflucan) 150 MG tabletIndications: Acute cystitis without hematuria,Yeast UTI Take one po q day at onset of symptoms, may repeat day #3 if needed. 2 tablet 10/31/19 25 Active naloxone (Narcan) 4 mg/0.1 mL nasal spray 1. Give 1 spray in nostril for no/slow breathing or cannot wake after opioid use 2. Call 911 3. Repeat in other nostril if symptoms continue 1 each 11/09/19 25 Active cholecalciferol (Vitamin D-3) 50 MCG (1999 UT) capsule 12/13/19 25 Active methylPREDNISolone (Medrol Dospak) 4 MG tabletsIndications :Status post lumbar spinal fusion,Postoperati ve pain Follow schedule on package instructions 21 tablet 01/22/20 25 Active methocarbamol (Robaxin) 500 MG tablet Take 1 tablet by mouth in the morning and 1 tablet at noon and 1 tablet in the evening and 1 tablet before bedtime. Do all this for 14 days. 56 tablet 01/22/20 25 Active celecoxib (CeleBREX) 200 MG capsule Take 1 capsule by mouth daily. 04/02/20 25 Active cyclobenzaprine (Flexeril) 10 MG tablet Take 1 tablet by mouth 2 times a day as needed. 04/22/20 25 Active estradiol (Estrace) 0.1 MG/GM vaginal cream Insert 2 g into the vagina daily. 02/26/20 25 Active oxybutynin XL (Ditropan-XL) 10 MG 24 hr tablet Take 1 tablet by mouth daily. 04/02/20 25 Active traMADol (Ultram) 50 MG tablet Take 1 tablet by mouth every 6 hours as needed for moderate pain. 04/22/20 25 Active Mounjaro 5 MG/0.5ML solution auto-injector solution pen-injector Inject 0.5 mL every week by subcutaneous route for 28 days. 08/02/20 25 Active ondansetron ODT (Zofran-ODT) 4 MG disintegrating tablet 06/29/20 Active fluticasone (Flonase) 50 MCG/ACT nasal spray Active Continuous Glucose Sensor (Dexcom G7 Sensor) [facility] 07/06/20 Active True Metrix Blood Glucose Test test strip 06/10/20 Active insulin aspart protamine-insulin aspart (NovoLOG Mix 70-30) (70-30) 100 UNIT/ML injection pen Inject 40 units twice a day by subcutaneous route for 30 days. Active insulin glargine-yfgn (Semglee) 100 UNIT/ML injection pen Inject 10 units every day by subcutaneous route for 30 days. 07/05/20 Active Embecta Pen Needle Ultrafine 31G X 5 MM [facility] 06/28/20 Active Active Problems Problem Noted Date Diagnosed [...] Encounters Date Type Department Care Team Description 08/07/2025 1:17 PM EDT - 08/07/2025 11:59 PM EDT Hospital Encounter CT Clinic Radiology [address], 1st [place] [address] Status post lumbar spinal fusion Discharge Disposition: Home or Self Care 08/07/2025 12:40 PM EDT Office Visit [facility] Orthopaedic Surgery & Sports Medicine [address], [address] [place] [address] [address] [place] [address] Norberto West MD S/P lumbar fusion (Primary Dx) 08/07/2025 Travel 08/06/2025 Orders Only [place] [address], [address] [place] [phone] Norberto West MD Status post lumbar spinal fusion (Primary Dx) 07/16/2025 Orders Only External Location [address] [place] [address] Casper Stack MD 05/31/2025 Orders Only [place] [address], [address] [place] [address] Celi Murrell PA Status post lumbar spinal fusion (Primary Dx); Low back pain, unspecified back pain laterality, unspecified chronicity, unspecified whether sciatica present; Lumbar spondylosis; Bilateral lower extremity pain; Lumbar radiculopathy 05/27/2025 Orders Only External Location [address] [place] [address] Provider, External 05/24/2025 Telephone [place] [address], [address] [place] [phone] Norberto West MD HCN - Patient Message 05/23/2025 Orders Only [place] [address], [address] [place] [address] Celi Murrell PA Status post lumbar spinal fusion (Primary Dx); Low back pain, unspecified back pain laterality, unspecified chronicity, unspecified whether sciatica present; Bilateral lower extremity pain; Lumbar radiculopathy; Lumbar spondylosis from Last 3 Months Immunizations Immunization Administration Dates Next Due Influenza, injectable, quadrivalent 09/22/2017 Influenza, injectable, quadrivalent, preservativ e free 08/11/2021,09/29/2020 Influenza, seasonal, injectable, preservative fr ee 08/15/2018 TD (adult), 2 Lf tetanus tox oid, preservative free, adsorbed 12/29/1996 Family History Medical History Relation Name Comments Lupus Father's Sister Crohn's disease Maternal Grandmother Arthritis Mother SWETA Cancer Mother SOL Depression Mother SWETA Diabetes Mother OSL Hypertension Mother SWETA Rheumatologic disease Mother SWETA [...] F) 08/07/2025 1:07 PM EDT Respiratory Rate 16 11/09/2024 12:36 PM EST Oxygen Saturation 97% 08/07/2025 1:07 PM EDT Inhaled Oxygen Concentration - - Weight 102 kg (225 lb) 04/24/2025 2:23 PM EDT Height 172.7 cm (5' 8 ) 04/24/2025 2:23 PM EDT Body Mass Index 34.21 04/24/2025 2:23 PM EDT Plan of Treatment Upcoming Encounters Date Type Department Care Team (Late st Contact Info) Description 11/13/2025 9:00 AM EST Office Visit [facility] Orthopaedic Surgery & Sports Medicine [address], [address] [place] [address] Norberto West MD [address] [place] [address] Health Maintenance Due Date Last Done [...] 2018 Sigmoidoscopy 2018 [facility]-Colorectal Cancer Screening 2018 Lung Cancer Screening Shared Decision Making 2023 [facility]-Breast Cancer Screening 2023 [facility]-Lung Cancer Screening 2023 [facility]-Zoster Vaccines (1 of 2) 2023 [facility]-LUPUC-84 Vaccine (1 - 2023- season) 2025 [facility]-Influenza Vaccine (#1) 06/24/202508/02, 08/29/2023, 08/13/2022, Additional history exists [facility]-Obesity Intervention Completed 025, 04/24/2025, 02/06/2025, Additional history exists HPV Vaccines Aged Out [...] this topic Medical Devices Implanted Type Area Mortician Helper Device Identifier Shelf Expiration Date Model / Serial / Lot Tlif-C Ui 12mm 8deg 28/10 - [id number] Implanted:Qty : 1 on 11/08/2024 by Norberto West MD at [facility] Cage N/A: Spine Lumbar DePuy Spine Sales -[id number] 03/23/2028 [id number] / / Lowell Viper2 Lordotic 45mm - [id number] Implanted:Qty : 2 on 11/08/2024 by Norberto West MD at [facility] Lowell N/A: Spine Lumbar DePuy Spine Sales -[id number] 11/08/2025 [id number] / / Single Inner Setscrew - [id number] Implanted:Qty : 4 on 11/08/2024 by Norberto West MD at [facility] Screw N/A: Spine Lumbar DePuy Spine Sales -[id number] 11/08/2025 [id number] / / Screw 7.0mm Viper Cfx Fen Xtab 50mm - [id number] Implanted:Qty : 4 on 11/08/2024 by Norberto West MD at [facility] Screw N/A: Spine Lumbar DePuy Spine Sales -[id number] 11/08/2025 [id number] / / Tissue Vivigen Formable 5.4cc Med Pk/4 - [id number] - [id number] Implanted:Qty : 1 on 11/08/2024 by Norberto West MD at [id number] 10/04/2025 [id number] / [id number] / [id number] Procedures Procedure Name Priority Date/Time Associated Diagnosis Comments XR LUMBAR SPINE 4 VIEWS TO INCLUDE FLEXION EXTENSION Routine 08/07/2025 1:27 PM EDT Status post lumbar spinal fusion CT OUTSIDE IMAGES 07/16/2025 12: 56 PM EDT MR NEURO OUTSIDE IMAGES 05/27/2025 7:25 AM EDT from Last 3 Months Results * XR Lumbar Spine 4 Views [...] Aric Romero MD on 08/07/2025 1:48 PM us Norberto West MD IMG XR PROCEDURES Final Result * CT OUTSIDE IMAGES (07/16/2025 12:56 PM EDT) Anatomical Region Laterality Modality Computed Tomogra phy 07/16/2025 12:5 6 PM EDT us Casper Stack MD IMG CT PROCEDURES Edited Re sult - Final * MR NEURO OUTSIDE IMAGES (05/27/2025 7:25 AM EDT) Anatomical Region Laterality Modality Magnetic Resonan ce 05/27/2025 7:25 AM EDT us External Provider IMG MRI PROCEDURES Edited Resu lt - Final from Last 3 Months Insurance [employer] [facility] MEDICAID Advance Directives * Full Code (Latest Code Status on File) Date Activated Date Inactivated Comments 11/08/2024 11:18 AM 11/09/2024 4:20 PM Question Answer Comments Patient has decision-making capacity? Yes Care Teams Motorboat Mechanic Inboard Relationship Specialty Start Date End Date Janet Chapman PA [address] [place] [address] PCP - General 06/23/21 Clarence Rubin MD [address] [place] [address] Surgeon Neurosurgery 06/23/21 Frankie Dalton MD [address] [place] [address] Surgeon Neurosurgery 10/13/21 Frankie Dalton MD [address] [place] [address] Surgeon Neurosurgery 12/15/21 Celi Murrell PA [address] [place] [address] Physician Water Use Inspector Neurosurgery 04/01/22 Norberto West MD [address] [place] [address] Surgeon Neurosurgery 10/29/24
--- OUTSIDE RECORDS SUMMARY | 2025-08-12 10:19 | XMS_ITS | Encounter Summary ---
Author Organization [facility] Address [address] [place] [address] Care Team Providers Care Sandfill Operator Name Role Phone Janet Chapman Primary Care Provider [phone] Clarence Rubin MD Unavailable Frankie Dalton MD Unavailable [phone] Frankie Dalton MD Unavailable [phone] Celi Murrell Unavailable [phone] Norberto West MD Unavailable [phone] Encounter Details Date Type Department Care Team (Late st Contact Info) Description 03/17/2021 Orders Only [place] [facility] [address], [address] [place] [address] Des D aSilva MD [address] [place] [address] Lumbar radiculopathy (Primary Dx) Social [...] Description 11/13/2025 9:00 AM EST Office Visit [facility] Orthopaedic Surgery & Sports Medicine [address], [address] [place] [address] Norberto West MD [address] [place] [address] documented as of this encounter Visit Diagnoses Diagnosis Lumbar radiculopathy- Primary Thoracic or lumbosacral neuritis or radiculitis, unspecified documented in this encounter Care Teams Sandfill Operator Relationship Specialty Start Date End Date Janet Chapman PA [address] [place] [address] PCP - General 06/23/21 Clarence Rubin MD [address] [place] [address] Surgeon Neurosurgery 06/23/21 Frankie Dalton MD [address] [place] [address] Surgeon Neurosurgery 10/13/21 Frankie Dalton MD [address] [place] [address] Surgeon Neurosurgery 12/15/21 Celi Murrell PA [address] [place] [address] Physician Parimutuel Ticket Cashier Neurosurgery 04/01/22 Norberto West MD [address] [place] [address] Surgeon Neurosurgery 10/29/24 documented as of this encounter
--- OUTSIDE RECORDS SUMMARY | 2025-08-12 10:19 | XMS_ITS | Encounter Summary ---
Author Organization [facility] Address [address] [place] [address] Care Team Providers Care Vibrator Operator Name Role Phone Janet Chapman Primary Care Provider [phone] Clarence Rubin MD Unavailable Frankie Dalton MD Unavailable [phone] Frankie Dalton MD Unavailable [phone] Celi Murrell Unavailable [phone] Norberto West MD Unavailable [phone] Encounter Details Date Type Department Care Team (Latest Contact Info) Description 08/07/2025 Travel Social History Tobacco Use Types Packs/Day [...] Description 11/13/2025 9:00 AM EST Office Visit [facility] Orthopaedic Surgery & Sports Medicine [address], [address] [place] [address] Norberto West MD [address] [place] [address] documented as of this encounter Visit Diagnoses Not on filedocumented in this encounter Additional Health Concerns Assessment Noted Time A fall risk assessment has been complete d for the patient 08/07/2025 1:14 PM EDT A Body Mass Index follow-up plan has been documented for the patient 08/07/2025 2:35 PM EDT documented as of this encounter Care Teams Vibrator Operator Relationship Specialty Start Date End Date Janet Chapman PA [address] [place] [address] PCP - General 06/23/21 Clarence Rubin MD [address] [place] [address] Surgeon Neurosurgery 06/23/21 Frankie Dalton MD [address] [place] [address] Surgeon Neurosurgery 10/13/21 rFankie Dalton MD [address] [place] [address] Surgeon Neurosurgery 12/15/21 Celi Murrell PA [address] [place] [address] Physician Section Laborer Neurosurgery 04/01/22 Norberto West MD [address] [place] [address] Surgeon Neurosurgery 10/29/24 documented as of this encounter
== END 2025-08-12 23:59 | disposition home or self-care (01) ==
LOC: RAD 09:40
PROVIDERS: Visit Provider Orthopaedic Surgery
DX: M25.552 Pain in left hip (principal)
CPT/HCPCS: 73502

== ENCOUNTER 2025-08-22 09:52 | Outpatient (CLI) | payer OTHER, SELFPAY ==
--- OUTSIDE RECORDS SUMMARY | 2025-08-07 12:40 | XMS_ITS | Encounter Summary ---
Author Organization [facility] Address [address] [place] [address] Care Team Providers Care Motel Keeper Name Role Phone Janet Chapman Primary Care Provider [phone] Clarence Rubin MD Unavailable Frankie Dalton MD Unavailable [phone] Frankie Dalton MD Unavailable [phone] Celi Murrell Unavailable [phone] Norberto West MD Unavailable [phone] Reason for Referral * Consultation (Routine) - Authorized Specialty Diagnoses / Procedures Referred By Contac t Referred To Contact Sports Medicine Diagnoses S/P lumbar fusion Norberto West MD [address] [facility] [address] [place] [address] Phone: tel: fax: [facility] Orthopaedic Surgery & Sports Medicine [facility] [facility], [address] [place] [address] Phone: tel: fax: Referral ID Status Reason Start Date Expiration Date Visits Requested Visits Authorized [id number] Authorized Specialty Services Required 5 02/06/2027 1 1 * Consultation (Routine) - Authorized Specialty Diagnoses / Procedures Referred By Contac t Referred To Contact Pain Medicine Diagnoses S/P lumbar fusion Norberto West MD [address] [address] Phone: tel: fax: Referral ID Status Reason Start Date Expiration Date Visits Requested Visits Authorized [id number] Authorized Specialty Services Required 02/06/2027 1 1 Scheduling Instructions [place] L5/S1 Epidural Reason for Visit * Reason Comments Follow-up Encounter Details Date Type Department Care Team (Late st Contact Info) Description 08/07/2025 12:40 PM EDT Office Visit [facility] Orthopaedic Surgery & Sports Medicine [address] [place] [address] Norberto West MD [address] [address] S/P lumbar fusion (Primary Dx) [...] clear explanation for right-sided pain based on her MRI of the lumbar spine. I recommended an orthopedics referral for evaluation of the hip, IVP for L5-S1 epidural steroid injection, and three-month follow-up. If she responds positively to an L5-S1 epidural but not half-way, extension of fusion to S1 might be of benefit. I personally spent a total of 30 minutes on this encounter. This time includes face to face with patient, counseling and discussion and/or coordination of care. I spent >50% in [id number] communication with the patient over the diagnosis, treatment options and plan. Norberto West MD MS Sales Advisor of Neurosurgery Complex and Minimally Invasive Spine Surgery [facility] [address] [place] [address] [place], [address] documented in this encounter Plan of Treatment Upcoming Encounters Date Type Department Care Team (Late st Contact Info) Description 11/13/2025 9:00 AM EST Office Visit [place] [facility] Orthopaedic Surgery & Sports Medicine [address] [place] [address] Norberto West MD [address] [place] [address] Scheduled Referrals Name Type Priority [...] documented as of this encounter Care Teams Motel Keeper Relationship Specialty Start Date End Date Janet Chapman PA [address] [facility] [place] [address] PCP - General 06/23/21 Clarence Rubin MD [address] [place] [address] Surgeon Neurosurgery 06/23/21 Frankie Dalton MD [address] [place] [address] Surgeon Neurosurgery 10/13/21 Frankie Dalton MD [address] [place] [address] Surgeon Neurosurgery 12/15/21 Celi Murrell PA [address] [place] [address] Physician Scientific Advisor Neurosurgery 04/01/22 Norberto West MD [address] [place] [address] Surgeon Neurosurgery 10/29/24 documented as of this encounter
--- OUTSIDE RECORDS SUMMARY | 2025-08-07 13:17 | XMS_ITS | Encounter Summary ---
Author Organization [facility] Address [address] [place] [place] [address] Care Team Providers Care Bookie Name Role Phone Janet Chapman Primary Care Provider [phone] Clarence Rubin MD Unavailable Frankie Dalton MD Unavailable [phone] Frankie Dalton MD Unavailable [phone] Celi Murrell Unavailable [phone] Norberto West MD Unavailable [phone] Encounter Details Date Type Department Care Team (Latest Contact Info) Description 08/07/2025 1:17 PM EDT - 08/07/2025 11:59 PM EDT Hospital Encounter [place] [facility] [address] [place] [address] Status post lumbar spinal fusion Discharge Disposition: [...] tablet (20 mg) by mouth nightly. 8 brexpiprazole (Rexulti) 1 MG tablet tablet 1 tablet (1 mg). 4 celecoxib (CeleBREX) 200 MG capsule Take 1 capsule by mouth daily. 5 cholecalciferol (Vitamin D-3) 50 MCG (2000 UT) capsule 5 Continuous Glucose Sensor ([facility] G7 Sensor) [facility] 5 cyclobenzaprine (Flexeril) 10 MG tablet Take 1 tablet by mouth 2 times a day as needed. 5 Embecta Pen Needle Ultrafine 31G X 5 MM [facility] 5 ergocalciferol 1.25 MG (25355 UT) capsule Takes on Sundays 4 escitalopram (Lexapro) 20 MG tablet Take 1 tablet (20 mg) by mouth daily. estradiol (Estrace) 0.1 MG/GM vaginal cream Insert 2 g into the vagina daily. 5 fluconazole (Diflucan) 150 MG tabletIndications:A cute cystitis without hematuria,Yeast UTI Take one po q day at onset of symptoms, may repeat day #3 if needed. 2 tablet 5 fluticasone (Flonase) 50 MCG/ACT nasal spray insulin aspart protamine-insulin aspart (NovoLOG Mix 70-30) (70-30) 100 UNIT/ML injection pen Inject 40 units twice a day by subcutaneous route for 30 days. insulin glargine-yfgn (Semglee) 100 UNIT/ML injection pen Inject 10 units every day by subcutaneous route for 30 days. 5 lisinopril 10 MG tablet Take 1 tablet (10 mg) by mouth nightly. 8 methylPREDNISolone (Medrol Dospak) 4 MG tabletsIndications: Status post lumbar spinal fusion,Postoperativ e pain Follow schedule on package instructions 21 tablet 5 Mounjaro 5 MG/0.5ML solution auto-injector solution pen-injector Inject 0.5 mL every week by subcutaneous route for 28 days. 5 naloxone (Narcan) 4 mg/0.1 mL nasal spray 1. Give 1 spray in nostril for no/slow breathing or cannot wake after opioid use 2. Call 911 3. Repeat in other nostril if symptoms continue 1 each 5 ondansetron ODT (Zofran-ODT) 4 MG disintegrating tablet 5 oxybutynin XL (Ditropan-XL) 10 MG 24 hr tablet Take 1 tablet by mouth daily. 5 Ozempic, 0.25 or 0.5 MG/DOSE, 2 MG/3ML solution pen-injector Saturdays 4 traMADol (Ultram) 50 MG tablet Take 1 tablet by mouth every 6 hours as needed for moderate pain. 5 True Metrix Blood Glucose Test test strip 5 varenicline (Chantix) 1 MG tablet 2 (two) times a day. documented as of this encounter Plan of Treatment Upcoming Encounters Date Type Department Care Team (Late st Contact Info) Description 11/13/2025 9:00 AM EST Office Visit [facility] Orthopaedic Surgery & Sports Medicine [address] [place] [address] Norberto West MD [address] [place] [address] documented as of this encounter Procedures Procedure Name Priority Date/Time Associated Diagnosis Comments XR LUMBAR SPINE 4 VIEWS TO INCLUDE FLEXION EXTENSION Routine 08/07/2025 1:27 PM EDT Status post lumbar spinal fusion documented in this encounter Results * XR Lumbar Spine 4 Views to Include Flexion Extension (08/07/2025 1:27 PM EDT) Anatomical Region Laterality Modality Spine, L-spine Digital Radiogra phy Impressions 08/07/2025 1:48 PM EDT L4-5 posterior fusion. No hardware failure or loosening. CRITICAL RESULT: No. COMMUNICATION: Per this written report. Drafted by Aric Romero MD on 08/07/2025 1:47 PM Final report signed by Aric Romero MD on 08/07/2025 1:48 PM Narrative 08/07/2025 1:48 PM EDT CLINICAL INDICATION: post op TECHNIQUE: XR LUMBAR SPINE 4 VIEWS TO INCLUDE FLEXION EXTENSION COMPARISON: 04/24/2025 FINDINGS: Redemonstration of L4-5 posterior fusion. Grade 1 anterolisthesis at L4-5. Minimal retrolisthesis at L2-3 No abnormal motion. Severe L5-S1 disc space narrowing with osteophytosis. Abdominal aortic atherosclerotic vascular calcifications. Procedure Note Aric Romero MD - 08/07/2025 CLINICAL INDICATION: post op TECHNIQUE: XR LUMBAR SPINE 4 VIEWS TO INCLUDE FLEXION EXTENSION COMPARISON: 04/24/2025 FINDINGS: Redemonstration of L4-5 posterior fusion. Grade 1 anterolisthesis at L4- 5.Minimal retrolisthesis at L2-3 No abnormal motion. Severe L5-S1 disc spacenarrowing with osteophytosis. Abdominal aortic atherosclerotic vascularcalcifications. IMPRESSION: L4-5 posterior fusion. No hardware failure or loosening. CRITICAL RESULT: No. COMMUNICATION: Per this written report. Drafted by Aric Romero MD on 08/07/2025 1:47 PM Final report signed by Aric Romero MD on 08/07/2025 1:48 PM Norberto West MD IMG XR PROCEDURES [...] documented as of this encounter Care Teams Bookie Relationship Specialty Start Date End Date Janet Chapman PA [address] [place] [address] PCP - General 06/23/21 Clarence Rubin MD [address] [place] [address] Surgeon Neurosurgery 06/23/21 Frankie Dalton MD [address] [place] [address] Surgeon Neurosurgery 10/13/21 Frankie Dalton MD [address] [place] [address] Surgeon Neurosurgery 12/15/21 Celi Murrell PA [address] [place] [address] Physician Cement Finisher Apprentice Neurosurgery 04/01/22 Norberto West MD [address] [place] [address] Surgeon Neurosurgery 10/29/24 documented as of this encounter
--- NOTE | 2025-08-22 09:52 | XR_ITS ---
FINAL REPORT CLINICAL HISTORY: Neck Pain FINDINGS: CERVICAL SPINE Three views were obtained. There is no acute fracture. The disc spaces are well-preserved. There is mild anterior osteophyte formation at C5-6. There is minimal spondylolisthesis of C5 on 6, likely degenerative. IMPRESSION: Degenerative changes at C5-6. Reviewed, Interpreted and Dictated by Tio Silver MD Transcribed by Ivy Montgomery Authenticated and [facility]
--- OUTSIDE RECORDS SUMMARY | 2025-08-22 10:18 | XMS_ITS | Encounter Summary ---
Author Organization [facility] Address [address] [place] [address] Care Team Providers Care Dressmaker Or Tailor Name Role Phone Janet Chapman Primary Care Provider [phone] Clarence Rubin MD Unavailable Frankie Dalton MD Unavailable [phone] Frankie Dalton MD Unavailable [phone] Celi Murrell Unavailable [phone] Norberto West MD Unavailable [phone] Encounter Details Date Type Department Care [...] Orthopaedic Surgery & Sports Medicine [address], [address] [place] [address] Norberto West MD [address] [place] [address] documented as of this encounter Visit Diagnoses Not on filedocumented in this encounter Additional Health Concerns Assessment Noted Time A fall risk assessment has been complete d for the patient 08/07/2025 1:14 PM EDT A Body Mass Index follow-up plan has been documented for the patient 08/07/2025 2:35 PM EDT documented as of this encounter Care Teams Dressmaker Or Tailor Relationship Specialty Start Date End Date Janet Chapman PA [address] [place] [address] PCP - General 06/23/21 Clarence Rubin MD [address] [place] [address] Surgeon Neurosurgery 06/23/21 Frankie Dalton MD [address] [place] [address] Surgeon Neurosurgery 10/13/21 Frankie Dalton MD [address] [place] [address] Surgeon Neurosurgery 12/15/21 Celi Murrell PA [address] [place] [address] Physician Mold Tooling Technician Neurosurgery 04/01/22 Norberto West MD [address] [place] [address] Surgeon Neurosurgery 10/29/24 documented as of this encounter
--- OUTSIDE RECORDS SUMMARY | 2025-08-22 10:18 | XMS_ITS | Clinical Summary ---
Author Organization [facility] Address [address] [place] [address] Care Team Providers Care Commercial Sheet Metal Foreman Name Role Phone Janet Chapman Primary Care Provider [phone] Allergies No known active allergies Medications escitalopram [...] 2023 INFLUENZA VACCINE 05/24/2025 08/15/2018, 08/15/2018 Insurance [facility] Care Teams Commercial Sheet Metal Foreman Relationship Specialty Start Date End Date Janet Chapman PA PCP - General Physician Overnight Cashier 07/14/21
--- OUTSIDE RECORDS SUMMARY | 2025-08-22 10:18 | XMS_ITS | Encounter Summary ---
Author Organization [facility] Address [address] [place] [address] Care Team Providers Care Visitor Services Associate Name Role Phone Janet Chapman Primary Care Provider [phone] Clarence Rubin MD Unavailable Frankie Dalton MD Unavailable [phone] Frankie Dalton MD Unavailable [phone] Celi Murrell Unavailable [phone] Norberto West MD Unavailable [phone] Encounter Details Date Type Department Care Team (Late st Contact Info) Description 07/16/2025 Orders Only External Location [address] [place] [address] Casper Stack MD [address] [place], [place] [id number] Social History Tobacco Use Types Packs/Day Years [...] Description 11/13/2025 9:00 AM EST Office Visit [facility] Orthopaedic Surgery & Sports Medicine [address] [place] [address] Norberto West MD [address] [place] [address] documented as of this encounter [...] documented as of this encounter Care Teams Visitor Services Associate Relationship Specialty Start Date End Date Janet Chapman PA [address] [facility] [place] [address] PCP - General 06/23/21 Clarence Rubin MD [address] [place] [address] Surgeon Neurosurgery 06/23/21 Frankie Dalton MD [address] [place] [address] Surgeon Neurosurgery 10/13/21 Frankie Dalton MD [address] [place] [address] Surgeon Neurosurgery 12/15/21 Ceil Murrell PA [address] [place] [address] Physician Director Day [facility] Neurosurgery 04/01/22 Norberto West MD [address] [place] [address] Surgeon Neurosurgery 10/29/24 documented as of this encounter
--- OUTSIDE RECORDS SUMMARY | 2025-08-22 10:18 | XMS_ITS | Encounter Summary ---
Author Organization [facility] Address [address] [place] [address] Care Team Providers Care Store Sales Leader Name Role Phone Janet Chapman Primary Care Provider [phone] Clarence Rubin MD Unavailable Frankie Dalton MD Unavailable Frankie Dalton MD Unavailable [phone] Celi Murrell Unavailable [phone] Norberto West MD Unavailable [phone] Encounter Details Date Type Department Care Team (Late st Contact Info) Description 08/06/2025 Orders Only [place] [facility] [address], [address] [place] [address] Norberto West MD [address] [place] [address] Status post lumbar spinal fusion [...] Description 11/13/2025 9:00 AM EST Office Visit [facility] Orthopaedic Surgery & Sports Medicine [address], [address] [place] [address] Norberto West MD [address] [place] [address] documented as of this encounter [...] documented as of this encounter Care Teams Store Sales Leader Relationship Specialty Start Date End Date Janet Chapman PA [address] [place] [address] PCP - General 06/23/21 Clarence Rubin MD [address] [place] [address] Surgeon Neurosurgery 06/23/21 Frankie Dalton MD [address] [place] [address] Surgeon Neurosurgery 10/13/21 Frankie Dalton MD [address] [place] [address] Surgeon Neurosurgery 12/15/21 Celi Murrell PA [address] [place] [address] Physician Sole Molder Neurosurgery 04/01/22 Norberto West MD [address] [place] [address] Surgeon Neurosurgery 10/29/24 documented as of this encounter
--- OUTSIDE RECORDS SUMMARY | 2025-08-22 10:19 | XMS_ITS | Encounter Summary ---
Author Organization [facility] Address [address] [place] [address] Care Team Providers Care Raveler Name Role Phone Janet Chapman Primary Care Provider [phone] Clarence Rubin MD Unavailable Frankie Dalton MD Unavailable Frankie Dalton MD Unavailable [phone] Celi Murrell Unavailable [phone] Norberto West MD Unavailable [phone] Encounter Details Date Type Department Care Team (Late st Contact Info) Description 12/25/2021 Orders Only External Location [address] [place] [address] Celi Murrell PA [address] [place] [address] Social History Tobacco Use Types Packs/Day Years [...] Description 11/13/2025 9:00 AM EST Office Visit [facility] Orthopaedic Surgery & Sports Medicine [address], [address] [place] [address] Norberto West MD [address] [place] [address] documented as of this encounter [...] documented as of this encounter Care Teams Raveler Relationship Specialty Start Date End Date Janet Chapman PA [address] [facility] [place] [address] PCP - General 06/23/21 Clarence Rubin MD [address] [place] [address] Surgeon Neurosurgery 06/23/21 Frankie Dalton MD [address] [place] [address] Surgeon Neurosurgery 10/13/21 Frankie Dalton MD [address] [place] [address] Surgeon Neurosurgery 12/15/21 Celi Murrell PA [address] [place] [address] Physician Clinical Lab Assistant Neurosurgery 04/01/22 Norberto West MD [address] [place] [address] Surgeon Neurosurgery 10/29/24 documented as of this encounter
--- OUTSIDE RECORDS SUMMARY | 2025-08-22 10:19 | XMS_ITS | Clinical Summary ---
Author Organization [facility] Address [address] [place] [address] Care Team Providers Care Funeral Greeter Name Role Phone Janet Chapman Primary Care Provider [phone] Clarence Rubin MD Unavailable Frankie Dalton MD Unavailable [phone] Frankie Dalton MD Unavailable [phone] Celi Murrell Unavailable [phone] Norberto West MD Unavailable [phone] Allergies Active Allergy Reactions Criticality Noted [...] mg). 06/16/20 24 Active ergocalciferol 1.25 MG (24035 UT) capsule Takes on Sundays02/23/20 24 Active [...] Active Continuous Glucose Sensor (Dexcom G7 Sensor) [facility] 07/06/20 Active True Metrix Blood Glucose Test [...] Pen Needle Ultrafine 31G X 5 MM [facility] 06/28/20 Active Active Problems Problem Noted Date [...] - 08/07/2025 11:59 PM EDT Hospital Encounter [facility] [address], [address] [place] [address] Status post lumbar spinal fusion Discharge Disposition: Home or Self Care 08/07/2025 12:40 PM EDT Office Visit [facility] Orthopaedic Surgery & Sports Medicine [address], [address] [place] [address] [address] [place] [address] Norberto West MD S/P lumbar fusion (Primary Dx) 08/07/2025 Travel 08/06/2025 Orders Only [place] [address], [address] [place] [phone] Norberto West MD Status post lumbar spinal fusion (Primary Dx) 07/16/2025 Orders Only External Location [address] [place] [address] Casper Stack MD 05/31/2025 Orders Only [place] [address], [address] [place] [phone] Celi Murrell PA Status post lumbar spinal fusion (Primary Dx); Low back pain, unspecified back pain laterality, unspecified chronicity, unspecified whether sciatica present; Lumbar spondylosis; Bilateral lower extremity pain; Lumbar radiculopathy 05/27/2025 Orders Only External Location [address] [place] [address] Provider, External 05/24/2025 Telephone [place] [address], [address] [place] [phone] Norberto West MD HCN - Patient Message 05/23/2025 Orders Only [place] [address], [address] [place] [phone] Celi Murrell PA Status post lumbar spinal [...] Mother SOL Depression Mother SWETA Diabetes Mother SOL Hypertension Mother SWETA Rheumatologic disease Mother SWETA Fibromyalgia Mother's Sister Collagen disease Other 1 Daughter Shweta Depression Other 1 Daughter Swheta Diabetes Other 2 Fibromyalgia Other 3 Hypertension [...] Description 11/13/2025 9:00 AM EST Office Visit [facility] Orthopaedic Surgery & Sports Medicine [address], [address] [place] [address] Norberto West MD [address] [...] 2023 [facility]-Zoster Vaccines (1 of 2) 2023 [id number]-[id number]-09 Vaccine (1 - 2023- season) 2025 [facility]-Influenza [...] this topic Medical Devices Implanted Type Area Data Warehouse Specialist Device Identifier Shelf Expiration Date Model / Serial / Lot Tlif-C Ui 12mm 8deg 28/10 - [id number] Implanted:Qty : 1 on 11/08/2024 by Norberto West MD at [facility] Cage N/A: Spine Lumbar DePuy Spine Sales -[id number] 03/23/2028 [id number] / / Lowell Viper2 Lordotic 45mm - [id number] Implanted:Qty : 2 on 11/08/2024 by Norberto West MD at [facility] Lowell N/A: Spine Lumbar DePuy Spine Sales -[id number] 11/08/2025 [id number] / / Single Inner Setscrew - [id number] Implanted:Qty : 4 on 11/08/2024 by Norberto West MD at [facility] Screw N/A: Spine Lumbar DePuy Spine Sales -[id number] 11/08/2025 [id number] / / Screw 7.0mm Viper Cfx Fen Xtab 50mm - [id number] Implanted:Qty : 4 on 11/08/2024 by Norberto West MD at [facility] Screw N/A: Spine Lumbar DePuy Spine Sales -[id number] 11/08/2025 [id number] / / Tissue Vivigen Formable 5.4cc Med Pk/4 - [id number] - [id number] Implanted:Qty : 1 on 11/08/2024 by Norberto West MD at [id number] 10/04/2025 [id number] / [id number] / [id number] Procedures Procedure Name Priority Date/Time Associated Diagnosis [...] Final from Last 3 Months Insurance [facility] [facility] MEDICAID Advance Directives * Full Code (Latest Code Status on File) Date Activated Date Inactivated Comments 11/08/2024 11:18 AM 11/09/2024 4:20 PM Question Answer Comments Patient has decision-making capacity? Yes Care Teams Funeral Greeter Relationship Specialty Start Date End Date Janet Chapman PA [address] [place] [address] PCP - General 06/23/21 Clarence Rubin MD [address] [place] [address] Surgeon Neurosurgery 06/23/21 Frankie Dalton MD [address] [place] [address] Surgeon Neurosurgery 10/13/21 Frankie Dalton MD [address] [place] [address] Surgeon Neurosurgery 12/15/21 Celi Murrell PA [address] [place] [address] Physician Community Product Specialist Neurosurgery 04/01/22 Norberto West MD [address] [place] [address] Surgeon Neurosurgery 10/29/24
--- OUTSIDE RECORDS SUMMARY | 2025-08-22 10:19 | XMS_ITS | Encounter Summary ---
Author Organization [facility] Address [address] [place] [address] Care Team Providers Care Hydraulic And Plumbing Installer Name Role Phone Janet Chapman Primary Care Provider [phone] Clarence Rubin MD Unavailable Frankie Dalton MD Unavailable [phone] Frankie Dalton MD Unavailable [phone] Celi Murrell Unavailable [phone] Norberto West MD Unavailable [phone] Reason for Visit * Reason Onset Date Comments HCN - Patient Message 05/24/2025 Encounter Details Date Type Department Care Team (Late st Contact Info) Description 05/24/2025 Telephone [facility] [address], [address] [place] [address] Norberto West MD [address] [place] [address] HCN - Patient Message Social [...] her know that everything was fxd to [facility] this morning and they will contact her to schedule. She verbalized understanding. * Telephone Encounter - Eden Bonilla - 05/24/2025 8:58 AM EDT Patient Phone Message Reason for Call: [facility] told her MRI was to be done at [facility] has no orders at this time Where will MRI be scheduled ? Best contact number and optimal time of day to reach caller: Pt / [phone] Note: Please do not reply to this message. Follow-up communication and further actions as a result of this message need to be communicated with the patient directly, if the patient is not active onMyChart. If the patient is active on MyChart, they will receive notification of the communication/outcome via Click[employer]. documented in this encounter Plan of Treatment Upcoming Encounters Date Type Department Care Team (Late st Contact Info) Description 11/13/2025 9:00 AM EST Office Visit [facility] Orthopaedic Surgery & Sports Medicine [address], [address] [place] [address] Norberto West MD [address] [place] [address] documented as of this encounter Visit Diagnoses Not on filedocumented in this encounter Additional Health Concerns Assessment Noted Time A fall risk assessment has been complete d for the patient 04/24/2025 2:23 PM EDT A Body Mass Index follow-up plan has been documented for the patient 04/24/2025 3:24 PM EDT documented as of this encounter Care Teams Hydraulic And Plumbing Installer Relationship Specialty Start Date End Date Janet Chapman PA [address] [place] [address] PCP - General 06/23/21 Clarence Rubin MD [address] [place] [address] Surgeon Neurosurgery 06/23/21 Frankie Dalton MD [address] [place] [address] Surgeon Neurosurgery 10/13/21 Frankie Dalton MD [address] [place] [address] Surgeon Neurosurgery 12/15/21 Celi Murrell PA [address] [place] [address] Physician Cement Conveyor Operator Neurosurgery 04/01/22 Norberto West MD [address] [place] [address] Surgeon Neurosurgery 10/29/24 documented as of this encounter
--- OUTSIDE RECORDS SUMMARY | 2025-08-22 10:19 | XMS_ITS | Encounter Summary ---
Author Organization [facility] Address [address] [place] [address] Care Team Providers Care Mold Loft Worker Name Role Phone Janet Chapman Primary Care Provider [phone] Clarence Rubin MD Unavailable Frankie Dalton MD Unavailable [phone] Frankie Dalton MD Unavailable [phone] Celi Murrell Unavailable [phone] Norberto West MD Unavailable [phone] Encounter Details Date Type Department Care Team (Late st Contact Info) Description 03/17/2021 Orders Only [facility] [address], [address] [place] [address] Des Da Silva MD [address] [place] [address] Lumbar radiculopathy (Primary Dx) Social [...] Description 11/13/2025 9:00 AM EST Office Visit [facility] Orthopaedic Surgery & Sports Medicine [address], [address] [place] [address] Norberto West MD [address] [place] [address] documented as of this encounter Visit Diagnoses Diagnosis Lumbar radiculopathy- Primary Thoracic or lumbosacral neuritis or radiculitis, unspecified documented in this encounter Care Teams Mold Loft Worker Relationship Specialty Start Date End Date Janet Chapman PA [address] [place] [address] PCP - General 06/23/21 Clarence Rubin MD [address] [place] [address] Surgeon Neurosurgery 06/23/21 Frankie Dalton MD [address] [place] [address] Surgeon Neurosurgery 10/13/21 Frankie Dalton MD [address] [place] [address] Surgeon Neurosurgery 12/15/21 Celi Murrell PA [address] [place] [address] Physician Cook Chill Technician Neurosurgery 04/01/22 Norberto West MD [address] [place] [address] Surgeon Neurosurgery 10/29/24 documented as of this encounter
== END 2025-08-22 23:59 | disposition home or self-care (01) ==
LOC: RAD 09:52
PROVIDERS: Visit Provider Orthopaedic Surgery
DX: M47.812 Spondylosis without myelopathy or radiculopathy, cervical region (principal)
CPT/HCPCS: 72040

== ENCOUNTER 2025-09-03 16:11 | Outpatient (CLI) | payer OTHER, SELFPAY ==
--- OUTSIDE RECORDS SUMMARY | 2025-09-03 16:13 | XMS_ITS | Continuity of Care Document ---
Author Organization [place] - [employer], [facility] Address [address] [place] [address] Assessment No assessment recorded. Plan of Treatment Reminders Order Date Submit Date Provider Last Modified By Organization Details Last Modified Time Details Appointments None recorded. Lab None recorded. Referral None recorded. Procedures None recorded. Surgeries None recorded. Imaging None recorded. Medication Orders trazodone 50 mg tablet [address] [facility], [address], [address], 5 09:50:42 insulin aspar prot-insuli n aspart 100 unit/mL (70-30) subcutaneou s pen 2024 025 [facility], [address], [address], 5 09:50:43 insulin glargine-yf gn (U-100) 100 unit/mL (3 mL) subcutaneou s pen 2024 025 [facility], [address], [address], 5 09:39:59 Mounjaro 2.5 mg/0.5 mL subcutaneou s pen injector 2024 025 [facility], [address], [address], 09:50:41 Patient TargetsNo targets recorded. Patient Instructions Encounter Date Encounter Id Patient Instructions Last Modified By Organization Details Last Modified Time 07/05/2025 [id number] type 2 diabetes: care instructions [email or web address] Not available 07/05/2025 09:35:43 Reason for Referral None Reported. Results Created Date Observation Date Name Description Value Unit Range Abnormal Flag Note LastModifiedBy Organization Detail LastModifiedTime 06/10/2006/10/2025 HbA1c (hemo globi n A1c), blood HbA1c 10.1 % Not Available [facility] [address] [facility], [place], [address], 06/10/2025 08:05:43 06/17/2006/11/2025 elect irena noriega am No observ ation record ed. [address], [place], [address], 06/18/2025 12:10:12 06/17/20 25 06/11/2025 XR, chest No observ ation record ed. [address], [address], 06/18/2025 12:05:28 06/18/20 25 06/14/2025 CT, lumba r spine , w/o contr ast No observ ation record ed. [place] [id number] [facility] [place], [address], 06/18/2025 11:38:12 06/18/20 25 05/23/2025 XR, hip + pelvi s, unila teral , 2 or 3 view No observ ation record ed. [place] [id number] [facility] [place], [address], 06/18/2025 11:37:10 06/18/20 25 05/23/2025 XR, knee, 3 view No observ ation record ed. [place] [address], [place], [address], 06/18/2025 11:36:38 06/18/20 25 05/23/2025 XR, femur , 2 or more view No observ ation record ed. [facility] [address], [place], [address], 06/18/2025 11:36:15 07/16/20 25 07/16/2025 CT, chest , w/ contr ast No observ ation record ed. [email or web address] [facility] [address], [place], [address], 07/16/2025 15:11:34 07/16/20 25 07/15/2025 MAMMO , diagn ostic , digit al, unila teral No observ ation record ed. [email or web address] [address], [place], [address], 07/18/2025 10:18:34 07/16/20 25 07/15/2025 US, breas t, unila teral No observ ation record ed. [email or web address] [address], [place], [address], 07/18/2025 10:18:34 Result Notes None recorded. Problems Name Problem SNOMED Code Status Onset Date Resolution Date Notes Provider Name and Address Organization Details Recorded Time Type 2 diabetes mellitus without complicat ion 100167627 Active 2023 SIRI Stevens [address] [place] [address], [address], [place] [employer] 5 09:14:19 Low back pain 552834371 Active 2023 SIRI Stevens [address] [place] [address], [address] 8, [place] [employer] 5 13:38:53 Cough 35277615 Completed 202312/13/2024 SIRI Stevens [address] [place] [address], [address], [employer] 13:38:48 Depressiv e disorder 11439895 Active 2023 SIRI Stevens [address] [place] [address], [address] 8, [employer] 5 13:38:51 Viral gastroent eritis 730432697 Completed 202312/13/2024 SIRI Stevens [address] [place] [address], [address], [employer] 13:38:58 Severe dry skin 721646300 Completed 202412/13/2024 SIRI Stevens [address] [place] [address], [address] 8, [employer] 13:38:56 Vitamin D deficienc y 54617464 Active 2024 SIRI Stevens [address] [place] [address], [address]44[address] 8, [employer] 5 13:39:14 Pain in right foot 034547521180 107 Active 2024 SIRI Stevens [address] [place] [address], [address] 8, [employer] 5 11:00:51 Pain in pelvis 62605835 Active 2024 SIRI Stevens [address] [place] [address], 24127[address] 8, [employer] 5 14:11:13 Mixed hyperlipi demia 306640187 Active 2024 SIRI Stevens [address] [place] [address], [address] 8, [employer] 5 15:50:47 Type 2 diabetes mellitus 37856271 Active 2024 SIRI Stevens [address] [place] [address], [address] 8, [employer] 16:01:35 Lumbar disc prolapse with radiculop athy 563935700 Active 2024 SIRI Stevens [address] [place] [address], [address] 8, [employer] 15:43:38 Acute low back pain 951074452 Active 2024 SIRI Stevens [address] [place] [address], 09272[address] 8, [employer] 5 09:12:29 Well controlle d type 2 diabetes mellitus 591820483 Active 2024 SIRI Stevens [address] [place] [address], [address] 8, [employer] 08:57:27 Pain of left shoulder joint 557210468578 60974 Active 2024 SIRI Stevens [address] [place] [address], 55[address] 8, [employer] 09:14:18 Mass of left breast 510740428802 02659 Completed 202408/12/2025 SIRI Stevens [address] [place] [address], 60[address] 8, [employer] 14:43:08 Primary insomnia 5525256 Active 2024 SIRI Stevens [address] [place] [address], [address] 8, [employer] 09:31:45 Acute upper respirato ry infection 13875643 Active 2024 SIRI Stevens [address] [place] [address], [address] 8, [employer] 12:32:17 Abscess of breast 58783863 Active 2024 SIRI Stevens [address] [place] [address], [address] 8, [employer] 14:43:30 Problem Notes None recorded. Procedures Surgical History Date Name Laterality Status Provider Name and Address Organization Details Recorded Time 12/26/19 25 Diabetic Foot Screen completed SIRI Stevens [address] [place], [address], [employer] 12/25/2024 16:25:07 12/11/19 25 Diabetic Foot Screen completed SIRI Stevens [address] [place], [address], [employer] 12/11/2024 17:41:57 11/08/19 25 Back Surgery completed [employer] 03/11/2025 15:11:41 08/13/20 24 Most Recent Mammogram completed [employer] 12/25/2024 10:03:46 07/24/20 03 Date of Last Pap Smear completed [employer] 07/27/2024 13:30:19 Back Surgery completed [employer] 07/27/2024 13:24:59 Caesarean Section completed [employer] 07/27/2024 13:24:59 Partial Hysterectomy completed [employer] 07/27/2024 13:24:59 Back Surgery completed [employer] 03/11/2025 15:11:48 Imaging Results None recorded. Procedure Notes None recorded. Medical Equipment None Reported. Allergies Allergen ID Allergen Name Allergen Category Reaction Reaction Severity Criticality Documentation Date Start Date Code Code System Note Provider Name and Address Organization Details Recorded Time 79458 morphine medicatio n Not available Not available Not available 04/05/2025 7052 RxNorm Joie alvarado, [employer] 14:00:02 Medications Name Sig Start Date [...] completed Not Available Not Available Not Available Bromfed DM 2 mg-30 mg-10 mg/5 mL oral syrup Take 10 mL every 4 hours by oral route as needed for 10 days. 07/29 completed Not Available Not Available Not Available [...] completed Not Available Not Available Not Available trazodone 50 mg tablet Take 1 tablet every day by oral route at bedtime. 2024 active Not Available Not Available Not Avai lable ofloxacin 0.3 % eye drops 12/11 completed Not Available Not Available Not Available fluconazo le 150 mg tablet 12/11 completed Not Available Not Available Not Available hydrocodo ne 5 mg-acetam inophen 325 mg tablet TAKE ONE TABLET BY MOUTH EVERY 6 HOURS NEEDED FOR PAIN active Not Available Not Available No t Available prednison e 20 mg tablet Take 1 tablet every day by oral route as directed for 9 days. 05/13 completed Not Available Not Available Not Available prednison e 5 mg tablet 07/27 completed Not Available Not Available Not Available sulfasala zine 500 mg tablet,de layed release Take 1 tablet twice a day by oral route as directed for 30 days, for low back pain. 12/11 completed Not Available Not Available Not Available sulfameth oxazole 800 mg-trimet hoprim 160 mg tablet TAKE ONE TABLET BY MOUTH TWICE DAILY FOR SIX DAYS active Not Available Not Available No t Available tramadol 50 mg tablet Take by oral route for 10 days. active Not Available Not Available No t Available ondansetr on 8 mg disintegr ating tablet [...] Not Available Not Available Not Avai lable insulin aspar prot-insu evelyn aspart 100 unit/mL (70-30) subcutane ous pen Inject 40 units twice a day by subcutan eous route for 30 days. active Not Available Not Available No t Available nicotine 21mg/24hr -14mg/24h r-7mg/24h r daily transderm patches,s equentl 12/11 completed Not Available Not Available Not Available Nasal Decongest ant (pseudoep hedrine) 120 mg tablet,ex tended release 07/27 completed Not Available Not Available Not Available varenicli ne tartrate 1 mg tablet 05/13 completed Not Available Not Available Not Available varenicli ne tartrate 0.5 mg (11)-1 mg (42) tablets in a dose pack 12/11 completed Not Available Not Available Not Available peg 3350-elec trolytes 236 gram-22.7 4 gram-6.74 gram-5.86 gram solution 07/27 completed Not Available Not Available Not Available Humalog Mix 75-25 KwikPen U-100 insulin 100 unit/mL subcutane ous pen Inject 10 units twice a day by subcutan eous route for 30 days. 07/05 completed Not Available Not Available Not Available cholecalc iferol (vitamin D3) 50 mcg (2,000 unit) capsule Take 1 capsule every day by oral route for 90 days. 2024 active Not Available Not Available Not Avai lable armodafin il 150 mg tablet 07/27 completed Not Available Not Available Not Available Senexon-S 8.6 mg-50 mg tablet 12/11 completed Not Available Not Available Not Available Victoza 2-Sanjay 0.6 mg/0.1 mL (18 mg/3 mL) subcutane ous pen injector Inject by subcutan eous route for 29 days. active Not Available Not Available No t Available True Metrix Glucose Test Strip Take 1 strip 3 times a day by miscell. route as needed for 30 days. 2024 active Not Available Not Available Not Avai lable Rexulti 1 mg tablet TAKE 1 TABLET [...] completed Not Available Not Available Not Available insulin glargine- yfgn (U-100) 100 unit/mL (3 mL) subcutane ous pen Inject 10 units every day by subcutan eous route for 30 days. 2024 active Not Available Not Available Not Avai lable Mounjaro 5 mg/0.5 mL subcutane ous pen injector Inject 0.5 mL every week by subcutan eous route for 28 days. 2024 active Not Available Not Available Not Avai lable Mounjaro 2.5 mg/0.5 mL subcutane ous pen injector INJECT 0.5 ML EVERY WEEK BY SUBCUTAN EOUS ROUTE 2024 active Not Available Not Available Not Avai lable Ozempic 0.25 mg or 0.5 mg (2 mg/3 mL) subcutane ous pen injector INJECT 0.5 MG UNDER THE SKIN EVERY WEEK DIRECTED KEEP IN REFRIGER ATOR 07/05 completed Not Available Not Available Not Available Clenpiq 10 mg-3.5 gram-12 gram/175 mL oral solution 07/27 completed Not Available Not Available Not Available Vitals Date Recorded Body height Body mass index (BMI) Body weight Oxygen saturation Oxygen saturation in Arterial blood by Pulse oximetry Heart rate Body temperature Systolic And Diastolic Provider Name and Address Organization Details Last Updated DateTime 5 172.72 cm 36.9 kg/m2 806173. 51 g 98 % 98 % 88 /min 98.4 [degF] 120/78 mm[Hg] Pratibha Hamilton [employer] 09:10:47 Social History Question Answer Notes LastModified by Organizat ion Details LastModified Time Tobacco Smoking Status Former Smoker Joie alvarado [employer] 12/11/2024 14:15:00 Do You Have An Advance [...] Information not available 08/17/2024 What Type Of Naturalist Do You Use? None Information not available [...] Do You Have A Medical Power Of Offal Worker? No Information not available 07/27/2024 What Was The Date Of Your Most Recent Tobacco Screening? 08/09/2025 [email or web address] Information not available 08/09/2025 Do You Have Any Pets? Yes Information [...] What Date Was Tobacco Cessation Counseling Provided? 08/09/2025 [email or web address] Information not available 08/09/2025 How Many Years Have You Smoked Tobacco? [...] not available 07/27/2024 Are you able to walk independently without assistance or assistive devices? YESWOREST Information not available 07/27/2024 Do you have difficulty doing errands alone? No Information not available 07/27/2024 Are you able to care for yourself independently? Yes Information not available 07/27/2024 Do you have difficulty dressing, bathing, grooming, or toileting? No Information not available 07/27/2024 What is your exercise level? Occasional Information not available 07/27/2024 Mental Status Question Answer Note LastModified by Organizat ion Details LastModified Time Do you feel stressed (tense, restless, nervous, or anxious, or unable to sleep at night)? [id number] Information not available 02/11/2025 Do you have [...] disorder Not available 2023 13:24:58 Mother Malignant neoplasm of breast Not available 2023 13:24:58 Mother Arthritis Not available 07/27/2024 13:24:58 Mother Hypertensive disorder Not available 2023 13:24:58 Mother Heart disease Not available 2023 13:24:58 Mother Diabetes mellitus Not available 2023 13:24:58 Mother Kidney disease Not available 2023 13:24:58 Maternal Grandfather Malignant neoplasm of colon Not available 2023 13:24:58 Father [...] virus, trivalent, PF 4 completed SIRI Stevens [address] [place] [address], [address], [employer] 08/03/2024 10:54:01 Influenza, split virus, trivalent, PF 5 completed Joie Shankar null, [employer] 08/09/2025 17:39:53 Influenza, split virus, quadrivalent, preservative 7 completed Joie Shankar null, [employer] 12/11/2024 14:11:46 Influenza, split virus, trivalent, PF 8 completed Joie Shankar null, [employer] 12/11/2024 14:11:46 Td (adult), 2 Lf tetanus toxoid, preservative free, adsorbed 7 completed Joie Shankar null, [employer] 12/11/2024 14:11:46 Influenza, split virus, quadrivalent, PF 1 completed Joie Shankar null, [employer] 12/11/2024 14:11:46 Influenza, split virus, quadrivalent, PF 2 completed Joie Shankar null, [employer] 12/11/2024 14:11:46 Influenza, split virus, quadrivalent, PF 3 completed Joie Shankar christiano, [place] [employer] 12/11/2024 14:11:46 Influenza, split virus, quadrivalent, PF 0 completed Joietwyla Shankar christiano, [employer] 12/11/2024 14:11:46 Past Encounters Encounter ID Performer Location Encounter Start Date Encounter Closed Date Diagnosis/Indication Diagnosis SNOMED-CT Code Diagnosis ICD10 Code Diagnosis IMO Codes Diagnosis Note [id number] SIRI Stevens [facility] [address] [place] [address] 06/10/2025 07:59:23 06/10/2025 08:28:54 Type 2 diabetes mellitus 26601675 E11.9 57792007 Has failed Ozempic, Rybelsus and VictozaNee ds HgA1c control prior to shoulder surgery Mixed hyperlipidemia 267 692059 E78.2 74467 Pain of le ft shoulder joint 4661205203 4879049 M25.512 923195 [id number] SIRI Stevens [facility] [address] [place] [address] 07/05/2025 08:57:25 07/05/2025 10:15:31 Type 2 diabetes mellitus without complication 437424779 E11.9 Increase 70/30, add LantusWill try to get Mounjaro coveredDex com due to increased insulin needs while Mounjaro not covered Lumbar dis c prolapse with radiculopathy 966896726 M51.16 742599 Pain of le ft shoulder joint 5780486774 2551118 M25.512 997223 Primary insomnia 0580516 F51.01 40085 Health Concerns Section Related Observation LastModified by Organization Detai ls LastModified Time None Recorded Concern Status LastModified by Organization Details LastModified Time None Recorded Payers Encounter Date Sequence Insurance Name Policy Number Policy Henry Covered Member ID Henry Member ID Guarantor Name 07/05/2025 [address] [employer] [facility] (MEDICAID HMO) Jenny Barr [id number] Jenny Barr Notes Date Note Type Note Provider Name and Address Organization Details Recorded Time 07/05/2025 text/html ROS as noted in the HPI Patient presents for followup.Diabetes has not been well controlled since stopping Mounjaro. Currently on Victoza after Ozempic made her sick. Also using insulin. Sugars have been very high. Has gone to ER twice with high sugars. Needs a second lumbar disc surgery as well as left shoulder surgery and has to get sugar better controlled.Also states that she is not sleeping. SIRI Stevens [address] [place] [address], [address], [facility] [employer] 07/05/2025 15:33:06 OBGyn Episode No OBEpisode recorded.
--- OUTSIDE RECORDS SUMMARY | 2025-09-03 16:13 | XMS_ITS ---
Care Plan - [facility] Created on: September 03, 2025 Jenny Barr : 1975 Sex: Female Author Organization [facility] Address [address] [place] [phone] Phone Care Team Providers Care Jar Filler Name Role Phone Roque CALDERÓN, Cezar Huggins Unavailable [phone]
--- OUTSIDE RECORDS SUMMARY | 2025-09-03 16:13 | XMS_ITS | Data Portability ---
Author Organization [facility] [employer] [facility] Address [address] [place] [address] Assessment No assessment recorded. Plan of Treatment Reminders Order Date Submit Date Provider Last Modified By Organization Details Last Modified Time Details Appointments None recorded. Lab HbA1c (hemoglobin A1c), blood [address], [address] [place], [address], 5 08:55:53 microalbumi n/creatinin e, mass ratio, urine [address], [address] [place], [address], 5 12:41:08 Referral pain management referral 2024 025 [facility], [address] [place] [address] [address], [place], [address], 5 11:54:38 Procedures None recorded. Surgeries None recorded. Imaging XR, lumbar spine 2024 025 [facility] Scheduling Department -New Scheduling Process, [facility], [place], [address], 5 15:57:02 Medication Orders trazodone 50 mg tablet 2024 025 [facility], [address] [facility], [place], [place], [address], 5 09:50:42 insulin aspar prot-insuli n aspart 100 unit/mL (70-30) subcutaneou s pen 2024 025 [facility] [address] [facility] [place], [address], 5 09:50:43 insulin glargine-yf gn (U-100) 100 unit/mL (3 mL) subcutaneou s pen 2024 025 [facility], [address] [facility] [address], [place], [address], 5 09:39:59 Mounjaro 2.5 mg/0.5 mL subcutaneou s pen injector 2024 025 [facility], [address] [facility] [address], [place], [address], 5 09:50:41 Mounjaro 2.5 mg/0.5 mL subcutaneou s pen injector 2024 025 [facility] [address] [facility] [place], [address], 5 09:29:51 True Metrix Glucose Test Strip 2024 025 [facility], [address] [facility], [place], [address], 5 09:07:16 Mounjaro 2.5 mg/0.5 mL subcutaneou s pen injector [address], [address] [facility] [place], [address], 5 09:08:59 tramadol 50 mg tablet 2024 025 [facility], [address] [facility], [place], [address], 15:16:37 cyclobenzap rine 10 mg tablet 2024 025 [facility], [address] [facility], [place], [address], 15:16:33 Patient TargetsNo targets recorded. Patient Instructions Encounter Date Encounter Id Patient Instructions Last Modified By Organization Details Last Modified Time 06/10/2025 [id number] learning about type 2 diabetes [email or web address] Not available 06/10/2025 08:55:53 type 2 diabetes: care instructions [email or web address] Not available 06/10/2025 08:55:53 07/05/2025 [id number] type 2 diabetes: care instructions [email or web address] Not available 07/05/2025 09:35:43 08/09/2025 [id number] back care and preventing injuries: care instructions [email or web address] Not available 08/12/2025 14:43:40 getting back to normal after low back pain: care instructions [email or web address] Not available 08/12/2025 14:43:40 learning about relief for back pain [email or web address] Not available 08/12/2025 14:43:40 type 2 diabetes: care instructions [email or web address] Not available 08/12/2025 14:43:41 Reason for Referral Pain Management Referral for Lumbar disc prolapse with radiculopathy Referring Physician: Janet Chapman, Family Medicine, Encounter Date: 04/08/2025 Results Created Date Observation Date Name Description Value Unit Range Abnormal Flag Note LastModifiedBy Organization Detail LastModifiedTime 03/11/20 25 03/11/2025 HbA1c (hemo globi n A1c), blood HbA1c 9.7 % Not Available [facility] [address] [facility], [place], [address], 03/11/2025 15:13:16 05/13/20 25 05/13/2025 micro album in/cr eatin ine, mass ratio , urine Microalbumin 10 mg/L Not Available [facility] [address] [facility], [place], [address], 05/13/2025 12:06:20 05/13/20 25 05/13/2025 micro album in/cr eatin ine, mass ratio , urine Creatinine 10 mg/dL Not Available [facility] [address] [facility], [place], [address], 05/13/2025 12:06:20 05/13/20 25 05/13/2025 micro album in/cr eatin ine, mass ratio , urine Ratio <30 mg/g Not Available [facility] [address] [facility], [place], [address], 05/13/2025 12:06:20 06/10/20 25 06/10/2025 HbA1c (hemo globi n A1c), blood HbA1c 10.1 % Not Available [facility] [address] [place] [address], [place], [address], 06/10/2025 08:05:43 04/09/20 25 04/08/2025 XR, lumba r spine No observ ation record ed. [address] (Med Record) [address], [place], [address], 04/09/2025 17:00:20 06/17/20 25 06/11/2025 elect irena noriega am No observ ation record ed. [address], [place], [place], [address], 06/18/2025 12:10:12 06/17/20 25 06/11/2025 XR, chest No observ ation record ed. [address], [place], [place], [address], 06/18/2025 12:05:28 08/26/06/14/2025 CT, lumba r spine , w/o contr ast No observ ation record ed. [address], [place], [address], 06/18/2025 11:38:12 06/18/20 25 05/23/2025 XR, hip + pelvi s, unila teral , 2 or 3 view No observ ation record ed. [address], [place], [address], 06/18/2025 11:37:10 06/18/2005/23/2025 XR, knee, 3 view No observ ation record ed. [address], [place], [place], [address], 06/18/2025 11:36:38 06/18/2005/23/2025 XR, femur , 2 or more view No observ ation record ed. [address], [place], [address], 06/18/2025 11:36:15 07/16/2007/16/2025 CT, chest , w/ contr ast No observ ation record ed. [address], [place], [address], 07/16/2025 15:11:34 07/16/2007/15/2025 MAMMO , diagn ostic , digit al, unila teral No observ ation record ed. [address], [place], [address], 07/18/2025 10:18:34 07/16/20 25 07/15/2025 US, breas t, unila teral No observ ation record ed. [place] [address], [place], [address], 07/18/2025 10:18:34 Result Notes None recorded. Problems Name Problem SNOMED Code Status Onset Date Resolution Date Notes Provider Name and Address Organization Details Recorded Time Type 2 diabetes mellitus without complicat ion 385407824 Active 2023 SIRI Stevens [address] [place] [address], [address], [employer] 09:14:19 Low back pain 576316768 Active 2023 SIRI Stevens [address] [place] [address], [address], [employer] 13:38:53 Cough 10260234 Completed 202312/13/2024 SIRI Stevens [address] [place] [address], [address], [employer] 13:38:48 Depressiv e disorder 29625104 Active 2023 SIRI Stevens [address] [place] [address], [address], [employer] 13:38:51 Viral gastroent eritis 577822194 Completed 202312/13/2024 SIRI Stevens [address] [place] [address], [address], [employer] 13:38:58 Severe dry skin 380245276 Completed 202412/13/2024 SIRI Stevens [address] [place] [address], [address], [employer] 13:38:56 Vitamin D deficienc y 51036541 Active 2024 SIRI Stevens [address] [place] [address], [address], [employer] 13:39:14 Pain in right foot 360903285413 107 Active 2024 SIRI Stevens [address] [place] [address], [address], [employer] 11:00:51 Pain in pelvis 65652827 Active 2024 SIRI Stevens [address] [place] [address], [address], [employer] 5 14:11:13 Mixed hyperlipi demia 985020412 Active 2024 SIRI Stevens [address] [place] [address], [address], [employer] 5 15:50:47 Type 2 diabetes mellitus 96602724 Active 2024 SIRI Stevens [address] [place] [address], [address], [employer] 5 16:01:35 Lumbar disc prolapse with radiculop athy 474790731 Active 2024 SIRI Stevens [address] [place] [address], [address], [employer] 15:43:38 Acute low back pain 480407367 Active 2024 SIRI Stevens [address] [place] [address], [address], [employer] 09:12:29 Well controlle d type 2 diabetes mellitus 503854155 Active 2024 SIRI Stevens [address] [place] [address], [address], [employer] 5 08:57:27 Pain of left shoulder joint 431316514870 44729 Active 2024 SIRI Stevens [address] [place] [address], [address], [employer] 5 09:14:18 Mass of left breast 792557286857 52994 Completed 202408/12/2025 SIRI Stevens [address] [place] [address], [address], [place] [employer] 5 14:43:08 Primary insomnia 0738031 Active 2024 SIRI Stevens [address] [place] [address], [address], [employer] 09:31:45 Acute upper respirato ry infection 76827389 Active 2024 SIRI Stevens [address] [place] [address], [address], [employer] 5 12:32:17 Abscess of breast 61549345 Active 2024 SIRI Stevens [address] [place] [address], [address], [employer] 14:43:30 Problem Notes None recorded. Procedures Surgical History Date Name Laterality Status Provider Name and Address Organization Details Recorded Time 12/26/19 25 Diabetic Foot Screen completed SIRI Stevens [address] [place] [address], [address], [employer] 12/25/2024 16:25:07 12/11/19 25 Diabetic Foot Screen completed SIRI Stevens [address] [place] [address], [address], [employer] 12/11/2024 17:41:57 11/08/19 25 Back Surgery completed [employer] 03/11/2025 15:11:41 08/13/20 24 Most Recent Mammogram completed [employer] 12/25/2024 10:03:46 07/24/20 03 Date of Last Pap Smear completed [employer] 07/27/2024 13:30:19 Back Surgery completed [employer] 07/27/2024 13:24:59 Caesarean Section completed [employer] 07/27/2024 13:24:59 Partial Hysterectomy completed [employer] 07/27/2024 13:24:59 Back Surgery completed [employer] 03/11/2025 15:11:48 Imaging Results None recorded. Procedure Notes None recorded. Medical Equipment None Reported. Allergies Allergen ID Allergen Name Allergen Category Reaction Reaction Severity Criticality Documentation Date Start Date Code Code System Note Provider Name and Address Organization Details Recorded Time 60578 morphine medicatio n Not available Not available Not available 04/05/2025 7052 RxNorm Joie Raad alvarado [facility] [employer]. 14:00:02 Medications Name Sig Start Date Stop [...] Updated DateTime 5 172.72 cm 36.9 kg/m2 145669. 51 g 97 % 97 % 78 /min 98.1 [degF] 128/80 mm[Hg] [employer] 5 14:40:50 Date Recorded Body height Body mass index (BMI) Body weight Heart rate Oxygen saturation Oxygen saturation in Arterial blood by Pulse oximetry Body temperature Systolic And Diastolic Provider Name and Address Organization Details Last Updated DateTime 5 172.72 cm 36.7 kg/m2 715171. 48 g 82 /min 96 % 96 % 98.5 [degF] 118/72 mm[Hg] [employer] 5 08:40:04 Date Recorded Body height Body mass index (BMI) Body weight Oxygen saturation Oxygen saturation in Arterial blood by Pulse oximetry Heart rate Body temperature Systolic And Diastolic Provider Name and Address Organization Details Last Updated DateTime 5 172.72 cm 37 kg/m2 784135. 38 g 98 % 98 % 78 /min 98.1 [degF] 136/82 mm[Hg] [employer] 5 08:03:54 Date Recorded Body height Body mass index (BMI) Body weight Oxygen saturation Oxygen saturation in Arterial blood by Pulse oximetry Heart rate Body temperature Systolic And Diastolic Provider Name and Address Organization Details Last Updated DateTime 5 172.72 cm 36.9 kg/m2 553923. 51 g 98 % 98 % 88 /min 98.4 [degF] 120/78 mm[Hg] [employer] 5 09:10:47 Date Recorded Body height Body mass index (BMI) Body weight Body temperature Heart rate Oxygen saturation Oxygen saturation in Arterial blood by Pulse oximetry Systolic And Diastolic Provider Name and Address Organization Details Last Updated DateTime 172.72 cm 35.9 kg/m2 802736. 2 g 98.1 [degF] 74 /min 95 % 95 % 126/76 mm[Hg] Joie Shankar [employer] 17:01:07 Social History Question Answer Notes LastModified by Organizat ion Details LastModified Time Tobacco Smoking Status Former Smoker Joie alvarado [employer] 12/11/2024 14:15:00 Do You Have An [...] Information not available 08/17/2024 What Type Of Manager English Do You Use? None Information not available [...] Do You Have A Medical Power Of Chief Crna? No Information not available 07/27/2024 What Was The Date Of Your Most Recent Tobacco Screening? 08/09/2025 [email or web address] Information not available 08/09/2025 Do You Have [...] Date Was Tobacco Cessation Counseling Provided? 08/09/2025 Information not available 08/09/2025 How Many Years [...] anxious, or unable to sleep at night)? [id number] Information not available 02/11/2025 Do you have difficulty concentrating, remembering or making decisions? No Information no t available 07/27/2024 Are you or have you been involved with bullying? No Information not available 07/27/2024 Family History Relationship Description Onset Age of this Age Resolved Age Notes LastModified by Organization Details LastModified Time Mother Hypercholest erolemia Not available 2023 13:24:58 Mother Anxiety disorder Not available 10/04/ 2024 13:24:58 Mother Malignant neoplasm of breast Not [...] virus, trivalent, PF 4 completed SIRI Stevens [address] [place] [address], [address], [employer] 08/03/2024 10:54:01 Influenza, split virus, trivalent, PF 5 completed Joie alvarado, [employer] 08/09/2025 17:39:53 Influenza, split virus, quadrivalent, preservative 7 completed Joie alvarado, [employer] 12/11/2024 14:11:46 Influenza, split virus, trivalent, PF 8 completed Joie alvarado, [employer] 12/11/2024 14:11:46 Td (adult), 2 Lf tetanus toxoid, preservative free, adsorbed 7 completed Joie alvarado, [employer] 12/11/2024 14:11:46 Influenza, split virus, quadrivalent, PF 1 completed Joie Shankar null, [employer] 12/11/2024 14:11:46 Influenza, split virus, quadrivalent, PF 2 completed Joie Shankar null, [employer] 12/11/2024 14:11:46 Influenza, split virus, quadrivalent, PF 3 completed Joie Shankar null, [employer] 12/11/2024 14:11:46 Influenza, split virus, quadrivalent, PF 0 completed Joie Shankar null, [employer] 12/11/2024 14:11:46 Past Encounters Encounter ID Performer Location Encounter Start Date Encounter Closed Date Diagnosis/Indication Diagnosis SNOMED-CT Code Diagnosis ICD10 Code Diagnosis IMO Codes Diagnosis Note [id number] SIRI Stevens [address] [address] 07/27/2024 13:16:28 07/27/2024 14:03:57 Screening mammography 27538226 Z12.31 Type 2 anshul betes mellitus without complication 999076621 E11.9 Low back pain 170314884 M54.50 Cough 53759532 R05.9 Depressive disorder 3548 9007 F32.A [id number] SIRI Stevens [address] [address] 08/02/2024 09:24:54 08/02/2024 13:58:10 Administration of influenza vaccine 36126902 Z23 [id number] SIRI Stevens [address] [address] 12/11/2024 13:57:44 12/11/2024 14:51:40 Type 2 diabetes mellitus without complication 068203019 E11.9 Severe dry skin 58907564 2 L85.3 HIV screening 281602078 Z11.4 Hepatitis C screening 41 2282000 Z11.59 Body mass index 30+ - obesity 174110536 Z68.33 [id number] SIRI Stevens [address] [address] 12/25/2024 09:39:09 12/25/2024 11:00:14 Pain in right foot 9218877162 10879 M79.671 Xrayepsom salt soaksVolta elsie gelKT tape Reduced libido 0037348 R 68.82 Severe dry skin 14039207 2 L85.3 [id number] SIRI Stevens [address] [address] 02/11/2025 13:40:39 02/11/2025 14:15:03 Burping 367195972 R14.2 Pain in pelvis 32061805 R10.2 [id number] SIRI Stevens [address] [address] 03/11/2025 15:00:51 03/11/2025 15:44:20 Type 2 diabetes mellitus 68101850 E11.9 [id number] Hga1c has gone up, but she was off Ozempic for a few weeks; will repeat next OV Depressive disorder 3548 9007 F32.A Vitamin D deficiency 347 31072 E55.9 Mixed hyperlipidemia 267 054380 E78.2 28777 Essential hypertension 33232472 I10 Type 2 anshul betes mellitus without complication 207837524 E11.9 Cough 67551475 R05.9 [id number] SIRI Stevens [address] [address] 04/05/2025 13:46:18 04/05/2025 14:40:19 Acute low back pain 404804405 M54.50 63036017 Lumbar dis c prolapse with radiculopathy 535129033 M51.16 281521 RTC if not improving [id number] SIRI Stevens [address] [address] 04/08/2025 14:33:39 04/08/2025 15:06:20 Lumbar disc prolapse with radiculopathy 569908874 M51.16 627078 [id number] SIRI Stevens [address] [address] 05/13/2025 08:29:24 05/13/2025 08:57:13 Well controlled type 2 diabetes mellitus 286904171 E11.9 18123411 [id number] SIRI Stevens [address] [address] 06/10/2025 07:59:23 06/10/2025 08:28:54 Type 2 diabetes mellitus 92579370 E11.9 13612617 Has failed Ozempic, Rybelsus and VictozaNee ds HgA1c control prior to shoulder surgery Mixed hyperlipidemia 267 105706 E78.2 57753 Pain of le ft shoulder joint 2352492604 7085435 M25.512 398579 [id number] SIRI Stevens [address] [address] 07/05/2025 08:57:25 07/05/2025 10:15:31 Type 2 diabetes mellitus without complication 872035095 E11.9 Increase 70/30, add LantusWill try to get Mounjaro coveredDex com due to increased insulin needs while Mounjaro not covered Lumbar dis c prolapse with radiculopathy 306975353 M51.16 111409 Pain of le ft shoulder joint 2588781419 0160942 M25.512 924973 Primary insomnia 7936845 F51.01 82871 [id number] SIRI Stevens [address] [address] 08/09/2025 16:44:57 08/09/2025 17:32:54 Requires influenza virus vaccination 626953666 Z23 946120 Type 2 anshul betes mellitus without complication 099471833 E11.9 Low back pain 064103143 M54.50 Abscess of breast 883705 03 N61.1 8009367 Treated while inpatient - resolved Health Concerns Section Related Observation LastModified by Organization Detai ls LastModified Time None Recorded Concern Status LastModified by Organization Details LastModified Time None Recorded Advance Directives Directive N: Payers Insurance Date Sequence Insurance Name Policy Number Policy Henry Covered Member ID Henry Member ID Guarantor Name 08/12/2025 1 [employer] [facility] (MEDICAID HMO) Jenny Barr [id number] Jennypiedad Barr Notes Date Note Type Note Provider Name and Address Organization Details Recorded Time 04/08/2025 text/html ROS as noted in the [facility] Patient states her back is still very painful, possibly even worse. She has appointment with surgeon, but not until 04/24. She is unable to sleep. SIRI Stevens [address] [place], [address], [employer]. 04/08/2025 17:46:15 05/13/2025 text/html ROS as noted in the [facility] Patient presents for followup. She has a history of diabetes. She has taken Trulicity, then Ozempic. Her HgA1c has gone up. She wonders if there is something else that she can try. Pratibha alvarado, [employer]. 05/13/2025 12:06:52 06/10/2025 text/html ROS as noted in the [facility] Patient presents for followup. She has a history of diabetes. She is currently on Ozempic. Previously on Rybelsus and before that Victoza. Her HgA1c has increased. Mounjaro was not approved by her insurance.She has right shoulder surgeyr pending. Follows up with ortho later this week.Right eye is red and draining but already has appt with eye doctor later today. SIRI Stevens [address] [place], [address], [employer] 06/10/2025 09:14:51 07/05/2025 text/html ROS as noted in the [facility] Patient presents for followup.Diabetes has not been well controlled since stopping Mounjaro. Currently on Victoza after Ozempic made her sick. Also using insulin. Sugars have been very high. Has gone to ER twice with high sugars. Needs a second lumbar disc surgery as well as left shoulder surgery and has to get sugar better controlled.Also states that she is not sleeping. SIRI Stevens [address] [place], [address], [employer] 07/05/2025 15:33:06 08/09/2025 text/html ROS as noted in the HPI Patient presents for followup. Recently hospitalized for left breast abscess. Was admitted for antibioitcs, I&D. She is doing much better. She is pending evaluation with neurosurgery/ortho pedics re: a second lumbar fusion. States she is in pain pretty much constantly. Sugar is doing better since switching to Mounjaro. SIRI Stevens [address] [place] [address], [place], [address], [facility] [email or web address] 08/12/2025 14:44:20 OBGyn Episode No OBEpisode recorded.
--- OUTSIDE RECORDS SUMMARY | 2025-09-03 16:13 | XMS_ITS ---
Author Organization [facility] , [facility] Address [address] [place] [phone] Phone Care Team Providers Care Instrument Mechanics Supervisor Name Role Phone Roque CALDERÓN, Cezar Huggins Unavailable [phone] Plan of Treatment No Plan of Treatment Recorded Assessments Includes: Assessments for all patient encounters No Assessments Recorded Medical Equipment - Implanted Devices Includes: Current and historical Devices No Medical Equipment Recorded Medications Administered Includes: Administered Medications in patient's chart No Administered Medications Recorded Results Includes: Results from 09/03/2024 through 09/03/2025 No Results Recorded For Specified Dates History of Present Illness History of Present Illness not supported for this document type No History of Present Illness Recorded Social History No Social History Recorded - Smoking Status Unknown Medical History Includes: Medical History in patient's chart No Medical History Recorded Family History Includes: Family History in patient's chart No Family History Recorded Review of Systems Review of Systems not supported for this document type No Review of Systems Recorded Mental Status No Mental Status Recorded Functional Status No Functional Status Recorded Physical Exam Physical Exam not supported for this document type No Physical Exam Recorded Insurance Includes: Active Insurance Policies Plan Name Member ID Group # Subscriber Relationship Effect jamila Dates 1 - [employer] [facility] [id number] Jenny Barr Self Clinical Notes Includes: Signed Clinical Notes starting from 10/07/2022 No Clinical Notes Recorded
--- OUTSIDE RECORDS SUMMARY | 2025-09-03 16:14 | XMS_ITS | Continuity of Care Document ---
Author Organization [place] - RonnyGalenea, [facility] Address [address] [place] [address] Assessment No assessment recorded. Plan of Treatment Reminders Order Date Submit Date Provider Last Modified By Organization Details Last Modified Time Details Appointments None record ed. Lab None record ed. Referral None record ed. Procedures None record ed. Surgeries None record ed. Imaging None record ed. Medication Orders None record ed. Patient TargetsNo targets recorded. Patient Instructions Encounter Date Encounter Id Patient Instructions Last Modified By Organization Details Last Modified Time 08/09/2025 [id number] back care and preventing injuries: care instructions [email or web address] Not available 08/12/2025 14:43:40 getting back to normal after low back pain: care instructions [email or web address] Not available 08/12/2025 14:43:40 learning about relief for back pain Not available 08/12/2025 14:43:40 type 2 diabetes: care instructions [email or web address] Not available 08/12/2025 14:43:41 Reason for Referral None Reported. Results Created Date Observation Date Name Description Value Unit Range Abnormal Flag Note LastModifiedBy Organization Detail LastModifiedTime 07/16/20 25 07/16/2025 CT, chest , w/ contr ast No observ ation record ed. [facility] [address], [place], [id number], 07/16/2025 15:11:34 07/16/20 25 07/15/2025 MAMMO , diagn ostic , digit al, unila teral No observ ation record ed. [facility] [address], [place], [address], 07/18/2025 10:18:34 07/16/2007/15/2025 , jocelin galicia No observ ation record ed. [facility] [address], [place], [id number], 07/18/2025 10:18:34 Result Notes None recorded. Problems Name Problem SNOMED Code Status Onset Date Resolution Date Notes Provider Name and Address Organization Details Recorded Time Type 2 diabetes mellitus without complicat ion 529333429 Active 2023 SIRI Stevens [address] [place] [address], [address] 8, [employer] 09:14:19 Low back pain 900206243 Active 2023 SIRI Stevens [address] [place] [address], [address] 8, [employer] 13:38:53 Cough 60007130 Completed 202312/13/2024 SIIR Stevens [address] [place] [address], [address], [employer] 13:38:48 Depressiv e disorder 46380654 Active 2023 SIRI Stevens [address] [place] [address], 704[address] 8, [employer] 13:38:51 Viral gastroent eritis 344097809 Completed 202312/13/2024 SIRI Stevens [address] [place] [address], 58[address]147 8, [employer] 13:38:58 Severe dry skin 195385531 Completed 202412/13/2024 SIRI Stevens [address] [place] [address], 863[address]373 8, [employer] 13:38:56 Vitamin D deficienc y 90755751 Active 2024 SIRI Stevens [address] [place] [address], 97928[address]609 8, [place] [employer] 5 13:39:14 Pain in right foot 115322290823 107 Active 2024 SIRI Stevens [address] [place] [address], [address]768[address]647 8, [place] [employer] 5 11:00:51 Pain in pelvis 04625922 Active 2024 SIRI Stevens [address] [place] [address], 80591-536 8, [place] [employer] 5 14:11:13 Mixed hyperlipi demia 801188234 Active 2024 SIRI Stevens [address] [place] [address], 56965[address] 8, [place] [employer] 5 15:50:47 Type 2 diabetes mellitus 79545301 Active 2024 SIRI Stevens [address] [place] [address], 59906-074 8, [place] [employer] 5 16:01:35 Lumbar disc prolapse with radiculop athy 153198301 Active 2024 SIRI Stevens [address] [place] [address], 10823-725 8, [place] [employer] 5 15:43:38 Acute low back pain 494170375 Active 2024 SIRI Stevens [address] [place] [address], 30925[address]750 8, [place] [employer] 5 09:12:29 Well controlle d type 2 diabetes mellitus 924153216 Active 2024 SIRI Stevens [address] [place] [address], 65269-737 8, [place] [employer] 5 08:57:27 Pain of left shoulder joint 046404821991 62957 Active 2024 SIRI Stevens [address] [place] [address], 30547-187 8, [employer] 09:14:18 Mass of left breast 264054739175 67815 Completed 202408/12/2025 SIRI Stevens [address] [place] [address], 88232-536 8, [employer] 14:43:08 Primary insomnia 0052095 Active 2024 SIRI Stevens [address] [place] [address], 47566-080 8, [employer] 09:31:45 Acute upper respirato ry infection 66940241 Active 2024 SIRI Stevens [address] [place] [address], 58562-227 8, [employer] 12:32:17 Abscess of breast 91488683 Active 2024 SIRI Stevens [address] [place] [address], 62433-381 8, [employer] 14:43:30 Problem Notes None recorded. Procedures Surgical History Date Name Laterality Status Provider Name and Address Organization Details Recorded Time 12/26/19 25 Diabetic Foot Screen completed SIRI Stevens [address] [place] [address], [address], [employer] 12/25/2024 16:25:07 12/11/19 25 Diabetic Foot Screen completed SIRI Stevens [address] [place] [address], [address], [employer] 12/11/2024 17:41:57 11/08/19 25 Back Surgery completed [employer] 03/11/2025 15:11:41 08/13/20 24 Most Recent Mammogram completed [employer] 12/25/2024 10:03:46 07/24/20 03 Date of Last Pap Smear completed [employer] 07/27/2024 13:30:19 Back Surgery completed [employer] 07/27/2024 13:24:59 Caesarean Section completed [employer] 07/27/2024 13:24:59 Partial Hysterectomy completed [employer] 07/27/2024 13:24:59 Back Surgery completed [employer] 03/11/2025 15:11:48 Imaging Results None recorded. Procedure Notes None recorded. Medical Equipment None Reported. Allergies Allergen ID Allergen Name Allergen Category Reaction Reaction Severity Criticality Documentation Date Start Date Code Code System Note Provider Name and Address Organization Details Recorded Time 02136 morphine medicatio n Not available Not available Not available 04/05/2025 7052 RxNorm Joie Shankar [facility] 14:00:02 Medications Name Sig Start Date Stop [...] Last Updated DateTime 172.72 cm 35.9 kg/m2 363730. 2 g 98.1 [degF] 74 /min 95 % 95 % 126/76 mm[Hg] Joie Shankar [employer] 17:01:07 Social History Question Answer Notes LastModified by Organizat ion Details LastModified Time Tobacco Smoking Status Former Smoker Joie alvarado [employer] 12/11/2024 14:15:00 Do You Have An Advance [...] Information not available 08/17/2024 What Type Of Horser Up Do You Use? None Information not available [...] Do You Have A Medical Power Of [employer]? No Information not available 07/27/2024 What Was The Date Of Your Most Recent Tobacco Screening? 08/09/2025 [email or web address] Information not available 08/09/2025 Do You Have [...] Date Was Tobacco Cessation Counseling Provided? 08/09/2025 [email or web address] Information not available 08/09/2025 How Many Years [...] Functional Status Question Answer Note LastModified by [employer] ion Details LastModified Time Do you use [...] anxious, or unable to sleep at night)? [id number] Information not available 02/11/2025 Do you have [...] split virus, trivalent, PF completed SIRI Stevens [address] [place] [address], [place], [address], [place] [employer] 08/03/2024 10:54:01 Influenza, split virus, trivalent, PF 5 completed Joie Shankar null, [employer] 08/09/2025 17:39:53 Influenza, split virus, quadrivalent, preservative 7 completed Joie Shankar null, [employer] 12/11/2024 14:11:46 Influenza, split virus, trivalent, PF 8 completed Joie Shankar null, [employer] 12/11/2024 14:11:46 Td (adult), 2 Lf tetanus toxoid, preservative free, adsorbed 7 completed Joie Shankar null, [employer] 12/11/2024 14:11:46 Influenza, split virus, quadrivalent, PF 1 completed Joie Shankar null, [employer] 12/11/2024 14:11:46 Influenza, split virus, quadrivalent, PF 2 completed Joie Shankar null, [employer] 12/11/2024 14:11:46 Influenza, split virus, quadrivalent, PF 3 completed Joie Shankar null, [employer] 12/11/2024 14:11:46 Influenza, split virus, quadrivalent, PF 0 completed Joie Shankar null, [employer] 12/11/2024 14:11:46 Past Encounters Encounter ID Performer Location Encounter Start Date Encounter Closed Date Diagnosis/Indication Diagnosis SNOMED-CT Code Diagnosis ICD10 Code Diagnosis IMO Codes Diagnosis Note [id number] SIRI Stevens [facility] [address] [place] [address] 08/09/2025 16:44:57 08/09/2025 17:32:54 Requires influenza virus vaccination 513085026 Z23 505345 Type 2 anshul betes mellitus without complication 678351200 E11.9 Low back pain 899795600 M54.50 Abscess of breast 023613 03 N61.1 8362738 Treated while inpatient - resolved Health Concerns Section Related Observation LastModified by Organization Detai ls LastModified Time None Recorded Concern Status LastModified by Organization Details LastModified Time None Recorded Payers Encounter Date Sequence Insurance Name Policy Number Policy Henry Covered Member ID Henry Member ID Guarantor Name 08/09/2025 1 [employer] [facility] (MEDICAID HMO) Jenny Barr [id number] Jenny Barr Notes Date Note Type Note Provider Name and Address Organization Details Recorded Time 08/09/2025 text/html ROS as noted in the HPI Patient presents for followup. Recently hospitalized for left breast abscess. Was admitted for antibioitcs, I&D. She is doing much better. She is pending evaluation with neurosurgery/ortho pedics re: a second lumbar fusion. States she is in pain pretty much constantly. Sugar is doing better since switching to [employer]. SIRI Stevens [address] [place] [address], [address], [facility] [employer] 08/12/2025 14:44:20 OBGyn Episode No OBEpisode recorded.
--- NOTE | 2025-09-03 16:15 | MR_ITS ---
PROCEDURE INFORMATION: Exam: MR Cervical Spine Without Contrast Exam date and time: 09/03/2025 4:33 PM Age: 49 years old Clinical indication: Neck pain; PT stated left neck to shoulder pain , no injury or trauma; Additional info: Cervical spine pain TECHNIQUE: Imaging protocol: Magnetic resonance imaging of the cervical spine without contrast. COMPARISON: CR XR CERVICAL SPINE 3V 08/22/2025 9:44 AM FINDINGS: Bones/joints: Vertebral bodies are maintained in height and alignment. Spinal cord: Normal signal. No cord compression. C2-C3: No significant disc bulge or herniation. No severe spinal canal stenosis. No significant neural foraminal narrowing. C3-C4: No significant disc bulge or herniation. No severe spinal canal stenosis. No significant neural foraminal narrowing. C4-C5: No significant disc bulge or herniation. No severe spinal canal stenosis. No significant neural foraminal narrowing. C5-C6: C5-C6 click moderate protrusion with bilateral fawcq-qyeqxyo-azeo-left uncovertebral joint osteophytosis resulting in moderate right and mild left neural foraminal stenosis and mild spinal canal stenosis indenting upon the ventral thecal sac. C6-C7: C6-C7 small posterior disc protrusion without significant spinal canal or neural foraminal stenosis. C7-T1: No significant disc bulge or herniation. No severe spinal canal stenosis. No significant neural foraminal narrowing. Soft tissues: Unremarkable. Vasculature: Expected flow voids in the vertebral arteries. IMPRESSION: 1. C5-C6 click moderate protrusion with bilateral lgeif-ttrafmz-qnmb-left uncovertebral joint osteophytosis resulting in moderate right and mild left neural foraminal stenosis and mild spinal canal stenosis indenting upon the ventral thecal sac. 2. C6-C7 small posterior disc protrusion without significant spinal canal or neural foraminal stenosis.
== END 2025-09-03 23:59 | disposition home or self-care (01) ==
LOC: RAD 16:12
PROVIDERS: PCP Physician Assistant; Visit Provider Orthopaedic Surgery
DX: M50.222 Other cervical disc displacement at C5-C6 level (principal); M50.223 Other cervical disc displacement at C6-C7 level; M25.78 Osteophyte, vertebrae; M48.02 Spinal stenosis, cervical region; M99.71 Connective tissue and disc stenosis of intervertebral foramina of cervical region
CPT/HCPCS: 72141

== ENCOUNTER 2025-10-01 10:03 | Day surgery (SDC) | payer OTHER, SELFPAY ==
[2025-10-01 10:18] VITALS: BP 133/81; PULSE 83; RESP 16; O2SAT 97; BMI 34.9
[2025-10-01 10:27] VITALS: BP 152/81; PULSE 89; RESP 18; O2SAT 97
[2025-10-01] MEDS: DEXAMETHASONE 10MG/ML 1ML VIAL 10 MG (10:27)
[2025-10-01 10:30] VITALS: BP 152/81; PULSE 89; RESP 18; O2SAT 97
--- NOTE | 2025-10-01 10:39 | EXP.PAIN.PRO ---
Procedure Date: 10/01/25 Time: 10:30 Anesthesiologist:: Manny Lea CRNA Complications:: None Pre-procedure Diagnosis:: Degenerative disc lumbar spine multilevels. Lumbar radiculopathy. Lumbar postlaminectomy syndrome. Post-procedure Diagnosis:: Same Indications for Procedure:: Patient is a pleasant 49-year-old female who comes to clinic today for lumbar epidural steroid injection at the L5-S1 level. Patient describes low lumbar back pain as well as left leg radicular symptoms. Patient is status post L4-5 fusion in the lumbar spine. She rates her pain 7/10. Procedure Details:: Procedure: Lumbar epidural steroid injection under fluoroscopy Informed consent was obtained and the risks and benefits of the procedure were explained to the patient. The patient was taken to the procedure room and noninvasive monitors placed, including noninvasive blood pressure cuff and pulse oximeter. The back was viewed using C-arm Fluoroscopy and prepped using Chloraprep as a cleansing solution and the L5-S1 interspace was palpated. Skin and subcutaneous tissues were anesthetized using lidocaine 1.5% and a 25-gauge needle. After this, an 18-gauge Touhy epidural needle was placed into the L5-S1 interspace and advanced using fluoroscopic guidance and loss of resistance to air until the epidural space was encountered. After confirmation of needle placement in the epidural space, with dye, a solution containing normal saline, 3 mL and dexamethasone 10 mg were incrementally injected into the lumbar epidural space. The patient tolerated the procedure well with no complications. The patient was observed in the Pain Clinic and then discharged home neurologically intact. Plan and Disposition:: Patient was discharged without incident.
[2025-10-01 10:40] VITALS: BP 159/66; PULSE 87; RESP 16; O2SAT 98
== END 2025-10-01 10:40 | disposition home or self-care (01) ==
PROVIDERS: PCP Physician Assistant; Visit Provider Nurse Anesthetist, Certified Registered
DX: M51.16 Intervertebral disc disorders with radiculopathy, lumbar region (principal); J45.909 Unspecified asthma, uncomplicated; F32.A Depression, unspecified; M79.7 Fibromyalgia; E78.5 Hyperlipidemia, unspecified; I10 Essential (primary) hypertension; E11.40 Type 2 diabetes mellitus with diabetic neuropathy, unspecified; N32.81 Overactive bladder; Z90.710 Acquired absence of both cervix and uterus; Z98.1 Arthrodesis status; Z82.49 Family history of ischemic heart disease and other diseases of the circulatory system; Z83.42 Family history of familial hypercholesterolemia; Z56.0 Unemployment, unspecified; Z88.1 Allergy status to other antibiotic agents; Z88.8 Allergy status to other drugs, medicaments and biological substances; Z88.5 Allergy status to narcotic agent; Z79.899 Other long term (current) drug therapy
CPT/HCPCS: 62323; J1100

== ENCOUNTER 2025-10-02 16:07 | Emergency (ER) | payer OTHER, SELFPAY ==
[2025-10-02 18:00] VITALS: BP 167/87; PULSE 79; RESP 18; TEMP 36.9; O2SAT 98; BMI 35.7
[2025-10-02] MEDS: ACETAMINOPHEN 500MG TAB 1000 MG PO (18:19)
--- NOTE | 2025-10-02 18:54 | ED_ITS ---
<Statement entered by Nathan Bailey DO - 10/03/25 00:07> I was consulted by the KRISSY, and we discussed the complexity of problems being addressed. I approved the treatment and management plan for this patient's care in the emergency department, thus performing a substantive portion of the medical decision making. Nathan Bailey DO Discharge Plan Disposition Patient Disposition: Home, Self-Care Condition: Good Prescriptions Prescriptions: New methocarbamol 750 mg tablet 750 mg PO HS Qty: 14 0RF No Action cholecalciferol (vitamin D3) 50 mcg (2,000 unit) capsule 50 mcg PO DIRECTED estradiol [Estrace] 0.01 % (0.1 mg/gram) cream 1 appful vaginal DAILY Qty: 42.5 2RF Rx Instructions: Using finger technique daily for 14 days and then 3 times a week thereafter. tramadol 25 mg tablet 25 mg PO Q6H PRN (Reason: .) cyclobenzaprine 5 mg tablet 5 mg PO TID PRN (Reason: muscle spasm) Qty: 20 0RF atorvastatin 20 mg tablet 20 mg PO HS escitalopram oxalate 20 mg tablet 20 mg PO HS albuterol sulfate 90 mcg/actuation HFA aerosol inhaler 2 inh inhalation Q6H PRN (Reason: shortness of breath or wheezing) Qty: 6.7 0RF celecoxib 200 mg capsule 200 mg PO HS lisinopril 10 mg tablet 10 mg PO HS Mounjaro 2.5 mg/0.5 mL pen injector 2.5 mg SQ WEEKLY ondansetron 4 mg tablet,disintegrating 4 mg PO Q8H PRN (Reason: nausea and vomiting) 5 Days Qty: 20 0RF Referrals Follow up/Referrals: Janet Chapman PA [Primary Care Provider, Medical] - See instructions Activity Restrictions/Add. Instructions Additional Instructions/Restrictions: Please return to the emergency department with any worsening signs or symptoms. Please follow-up with your pain management and other providers in the upcoming days/weeks. Clinical Impressions Clinical Impression: Headache, Foraminal stenosis of cervical region Instructions Patient Instructions: DI for Post-Spinal Puncture Headache, DI for Headache Print Language Print Language: Eritrean Discharge ED Provider: Nathan Bailey General Adult HPI General Chief complaint: Headache Stated complaint: chronic head and neck pain Time Seen by Provider: 10/02/25 18:41 Mode of Arrival: Ambulatory Source of Information: Patient Description of Symptoms (Recalled from ER Triage Doc. by RN): patient presents for headache and neck pain that started yesterday. she had a lumbar injection done yesterday here with Dr Buenrostro. she has had several before but has never had this sort of reaction afterwards. she stated the pain is all over her head and down her neck she rates it a 6/10 and took tramadol at home that she is prescribed which didn't help it. History of Present Illness HPI narrative: 49-year-old female presents the emergency department with right-sided neck pain that shoots up into her posterior occiput, with accompanying headache, patient states that yesterday she was at her pain management appointment, received what sounds like a epidural injection at the lower lumbar spine, does have remote history of what sounds like PLIF at L4-L5, and does have degenerative disc disease and bulging disc of both the cervical and lumbar spine. Patient states the pain has persisted, she believes she may had been in a bad position , when laying to get her injection, she denies any fever chills chest pain shortness of breath nausea vomiting constipation diarrhea no visual type symptomatology, no lightheadedness or dizziness, denies any radicular type symptomatology, denies any numbness or tingling saddle anesthesia no urinary bladder or bowel dysfunction no upper or lower extremity weakness, patient is a former smoker, other past medical history is consistent with T2DM, stress incontinence, OA, IBS, hyperlipidemia, fibromyalgia, hypertension, vitamin D deficiency, MDD/MAHESH. Initial triage vitals are unremarkable patient has been utilizing tramadol with little to no relief of her symptomatology. Please note that above description of symptoms, in this electronic medical record under categorization of recalled from ER triage doctor by RN are reflective of an initial nursing assessment, however, is not reflective of my full history and physical exam that was personally taken and clarified. Consequentially, this preceding description of symptoms, which may include the patient's categorized chief complaint in the EMR, do not reflect my personal clinical impression, and the ultimate description of history of present illness and patient stated complaints should be deferred to this section of the note. Unless stated otherwise or congruent with this section of the note, additional signs, symptoms, or incongruence should be interpreted as inaccurate with my clinical impression. Onset (ago): hour(s) Related Data Home Medications ?Medication ?Instructions ?Recorded ?Confirmed atorvastatin 20 mg tablet 20 mg PO HS 08/24/24 12/09/2 5 escitalopram oxalate 20 mg tablet 20 mg PO HS 06/16/24 10/01/25 cholecalciferol (vitamin D3) 50 50 mcg PO DIRECTED 01/21/25 10/01/25 mcg (2,000 unit) capsule celecoxib 200 mg capsule 200 mg PO HS 07/16/25 lisinopril 10 mg tablet 10 mg PO HS 07/16/25 5 Held on 07/17/25. Instructions: Resume on 07/24/25. Hold this medication while you are taking Bactrim as it can cause renal dysfunction taken together. tirzepatide 2.5 mg/0.5 mL 2.5 mg SQ WEEKLY 07/17/25 subcutaneous pen injector (Carolyn) tramadol 25 mg tablet 25 mg PO Q6H PRN . 08/05/25 10/01/25 Previous Rx's ?Medication ?Instructions ?Recorded albuterol sulfate 90 mcg/actuation 2 inh inhalation Q6 H PRN shortness 06/16/24 aerosol inhaler of breath or wheezing #6.7 g rocío estradiol 0.01% (0.1 mg/gram) 1 appful vaginal DAILY # 42.5 grams 02/25/25 vaginal cream (Estrace) ondansetron 4 mg disintegrating 4 mg PO Q8H PRN nausea and 06/28/25 tablet vomiting 5 days #20 tabs cyclobenzaprine 5 mg tablet 5 mg PO TID PRN muscle spa sm #20 08/28/25 tabs methocarbamol 750 mg tablet 750 mg PO HS #14 tabs 09/23 Allergies Allergy/AdvReac Type Severity Reaction Status Date / [facility] AdvReac Intermediate tics Verified 10/01/25 10:19 metformin AdvReac Vomiting Verified 10/01/25 10:19 morphine AdvReac Vomiting Verified 10/01/25 10:19 PFSH PFSH Disclaimer: The information contained in this section may have been updated after the patient was seen, as this information can be updated by other users. Medical History Left shoulder pain Left leg pain Abrasion Fall Instability of left shoulder joint Bone cyst Rectocele Atrophic vaginitis Overactive bladder Ankle weakness Sprain and strain of right ankle Tendonitis of ankle, right Peroneal tendinitis of right lower leg Saddle anesthesia Bilateral hip pain Coccyx pain Trigger finger, left middle finger Status post trigger finger release on 08/20/[address] 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 pylori infection Diarrhea Myalgia Chills Fever IBS (irritable bowel syndrome) Asthma Mouth ulcer Neuroforaminal stenosis of lumbar spine Herniation of lumbar intervertebral disc with radiculopathy Radicular pain of both lower extremities Lumbar canal stenosis Diabetes Neuropathy Low back pain History of rheumatic fever Urinary incontinence Hyperlipidemia Fibromyalgia Hypertension Perioral dermatitis Vitamin D deficiency (~08/19/18) Hand pain, left Depression Surgical History History of lumbar fusion History of section History of hand surgery [facility] joint bilateral History of hysterectomy partial H/O lumbar discectomy Family History Other Diabetes FHx: mental illness Family history of cancer Hyperlipidemia Hypertension Social History Smoking Status: Never smoker second hand exposure: Yes alcohol intake: never substance use type: denies use current occupational status: unemployed Travel in the last 8 weeks?: None household members: spouse housing: house current occupational exposures/hazards: No caffeine: Yes Have you lived/traveled outside [place] in past 30 days?: No Contact w/someone who lives/traveled outside [place] past 30 days?: No Exposure to someone with infectious disease in past 14 days?: No Do you have a fever (greater than 100.4 F or 38 C)?: No Have you tested positive for COVID-19?: No Exposed to someone with COVID-19 in past 14 days?: No Do you have a sore throat?: No Do you have a cough?: No Do you have any weakness?: No Do you have any diarrhea?: No Are you experiencing any unusual bleeding?: No Do you have any muscle aches/pain?: Yes Do you have any abdominal pain?: No Are you experiencing loss of taste or smell?: No Other Medical History Have you received the Flu Vaccine for this season: No Have you received the Pneumonia Vaccine: No ROS Obtained: Yes All systems reviewed & no additional complaints except as documented Physical Exam General General appearance: alert and in no apparent distress Head Head exam: atraumatic and normocephalic Eye Eye exam: Present PERRL and EOMI ENT ENT exam: Present mucous membranes moist Neck Neck exam: Present normal inspection Chest Chest inspection: Present normal inspection and symmetric chest wall rise Respiratory Respiratory exam: Present normal lung sounds bilaterally; Absent respiratory di stress Cardiovascular Cardiovascular exam: Present regular rate and normal rhythm Abdominal Exam Abdominal exam: Present soft; Absent tenderness Extremities Exam Extremities exam: Present normal inspection Back Exam Back exam: Present normal inspection, full ROM, tenderness and paraspinal tenderness; Absent vertebral tenderness Comment: Paraspinal tenderness to the cervical spine, negative paraspinal spinal tenderness to the cervical, thoracic, lumbar spine, area of injection looks to be within normal limits no erythema no evidence of any wound dehiscence or dr quincy, no hematoma around the injection site. Neurological Exam Neurological exam: Present alert, oriented X3 and other (Patient has 5 out of 5 strength in the bilateral lower and upper extremities, no focal neurological deficit, no gross sensation deficit, positive Spurling test on the left.) Psychiatric Psychiatric exam: Present normal affect Skin Skin exam: Present warm and dry Medical Decision Making Medical Records Medical records reviewed: Yes I reviewed the patient's medical records. Screening: Per USPSTF and CDC recommendations, given the prevalence of disease in our region, it is our hospital?s policy to screen for HIV and viral Hepatitis for all patients aged 18 and over and those with ongoing risk factors. Wali Inquiry Pt receiving controlled substance: Yes Wali was queried for this patient: No Reason not queried -: Emergent pt cond-no time Risks and benefits of using a controlled substance: were discussed with pt by me Vital Signs: 10/02/25 18:00 10/02/25 19:07 Temperature 98.5 F 98.9 F Temperature Source Oral Oral Pulse Rate 67 Pulse Rate [Right Radial] 79 Respiratory Rate 18 16 Blood Pressure 142/63 H Blood Pressure [Right Arm] 167/87 H Blood Pressure Mean [Right Arm] 113 Blood Pressure Source Automatic Cuff Blood Pressure Source [Right Arm] Automatic Cuff Blood Pressure Position Sitting Blood Pressure Position [Right Arm] Sitting 02 Sat by Pulse Oximetry 98 98 Oxygen Delivery Method Room Air Room Air Orders (Tests/Meds): ED MEDICATIONS Discontinued Medications Generic Name Dose Route Start Last Admin Trade Name Sugar PRN Reason Stop Dose Admin Acetaminophen 1,000 mg 10/02/25 18:05 10/02/25 18:19 Acetaminophen 500mg Tab PO 10/02/25 18:06 1,000 mg ONCE ONE Administration Lidocaine 1 each 10/02/25 19:01 10/02/25 19:19 Lidocaine 5% Transdermal Patch TD 10/02/25 19:02 1 each ONCE ONE Administration Oxycodone HCl 5 mg 10/02/25 19:01 10/02/25 19:19 Oxycodone 5mg Immediate Release Tablet PO 10/02/25 19:02 5 mg ONCE ONE Administration ORDERS Category Date Time Status CT cervical spine wo con Stat Cat Scan 10/02/25 18:[address] head/brain wo con Stat Cat Scan 10/02/25 18:55 Completed Medical Decision Narrative: 49-year-old female presents the emergency department with neck pain and headache that started yesterday, see HPI for detailed past medical history, differential diagnosis include but not limited to, cervicalgia, cervicogenic migraine, degenerative disc disease of the spine, foraminal stenosis of the spine, strain/sprain, tension headache among others. I discussed this patient's case with the attending physician Dr. Bailey Will obtain CT cervical without contrast, CT head without contrast, will give 1000 mg p.o. acetaminophen, 1 Lidoderm patch and 5 mg p.o. oxycodone I reviewed the patient's CT head without contrast along with the corresponding radiologic report, no acute intracranial abnormality, bubbles of air in the prepontine and quadrigeminal cisterns please correlate recent history of lumbar puncture or other spinal procedure Reviewed the patient's CT cervical spine without contrast on the corresponding radiologic report, no acute findings within the cervical spine, mild right-sided bony foraminal stenosis C5-C6. Reexamination of the patient at approximately 8:55 PM, patient states her headache and neck pain is improved after p.o. analgesia. I discussed this patient's case with Dr. Melgar the transfer physician at [facility] at approximately 9:05 PM as well as , with neurosurgery who was on the call as well, after discussion of the case with neurosurgery team they believe this is not an acute neurosurgical emergency/would not state neurosurgical transfer, based on CT head findings and that the patient's pain is control, most likely postdural type headache. I discussed these results with the patient and family the bedside patient and f rickyy are in agreement with the current treatment plan/discharge plan. Patient was given strict ED return precautions will follow-up with pain management other providers in the upcoming days/weeks. Patient voiced understanding and agreement with current treatment plan/discharge plan will prescribe the patient 750 mg p.o. methocarbamol as needed for symptomatic relief. Critical Care Critical Care Time Critical Care Time: No
--- NOTE | 2025-10-02 18:55 | CT_ITS ---
PROCEDURE INFORMATION: Exam: CT Cervical Spine Without Contrast Exam date and time: 10/02/2025 7:05 PM Age: 49 years old Clinical indication: Neck pain; Additional info: Neck pain history of ddd TECHNIQUE: Imaging protocol: Computed tomography of the cervical spine without contrast. Radiation optimization: All CT scans at this facility use at least one of these dose optimization techniques: automated exposure control; mA and/or kV adjustment per patient size (includes targeted exams where dose is matched to clinical indication); or iterative reconstruction. COMPARISON: FINDINGS: Bones: No acute fracture. Normal alignment. Mild disc space narrowing and endplate osteophytes at C5-C6. Disc bulges at C5-C6 and C6-C7. No severe spinal canal stenosis. Mild right-sided bony foraminal stenosis at C5-C6. Lungs: No acute findings at the lung apices. Soft tissues: Unremarkable. IMPRESSION: No acute findings within the cervical spine.
--- NOTE | 2025-10-02 18:55 | CT_ITS ---
PROCEDURE INFORMATION: Exam: CT Head Without Contrast Exam date and time: 10/02/2025 7:03 PM Age: 49 years old Clinical indication: Pain; Headache TECHNIQUE: Imaging protocol: Computed tomography of the head without contrast. Radiation optimization: All CT scans at this facility use at least one of these dose optimization techniques: automated exposure control; mA and/or kV adjustment per patient size (includes targeted exams where dose is matched to clinical indication); or iterative reconstruction. COMPARISON: FINDINGS: Brain: Bubbles of air are seen in the prepontine cistern and quadrigeminal cistern. No acute infarct or hemorrhage. Unremarkable white matter. No mass or midline shift. Cerebral ventricles: No ventriculomegaly. Paranasal sinuses: Visualized sinuses are unremarkable. No fluid levels. Mastoid air cells: Visualized mastoid air cells are well aerated. Bones: Unremarkable. No acute fracture. Soft tissues: Unremarkable. IMPRESSION: 1. No acute intracranial abnormality. 2. Bubbles of air in the prepontine and quadrigeminal cisterns. Please correlate with recent history of lumbar puncture or other spinal procedure.
[2025-10-02 19:07] VITALS: BP 142/63; PULSE 67; RESP 16; TEMP 37.2; O2SAT 98
[2025-10-02] MEDS: OXYCODONE 5MG IMMEDIATE RELEASE TABLET 5 MG PO (19:19)
[2025-10-02] MEDS: LIDOCAINE 5% TRANSDERMAL PATCH 1 EACH TD (19:19)
--- NOTE | 2025-10-02 20:43 | PC.NURSE ---
Call out to [facility] for consult
[2025-10-02 21:29] VITALS: BP 142/63; PULSE 67; RESP 18; TEMP 36.8; O2SAT 100
== END 2025-10-02 21:30 | disposition home or self-care (01) ==
PROVIDERS: Emergency Provider Student in an Organized Health Care Education/Training Program; PCP Physician Assistant
DX: R51.9 Headache, unspecified (principal); M54.2 Cervicalgia; M48.02 Spinal stenosis, cervical region
CPT/HCPCS: 70450; 72125; 99284; 99285